=== PATIENT | male | born 1940 | race Caucasian/White ===

== ENCOUNTER 2022-03-14 09:12 | Outpatient (CLI) | payer OTHER, SELFPAY ==
[2022-03-14 12:29] LABS: Chloride* 105 mmol/L (96-114); Sodium* 139 mmol/L (135-149)
[2022-03-14 12:30] LABS: Potassium* 4.6 mmol/L (3.6-5.1)
[2022-03-14 12:32] LABS: Alanine Aminotransferase* 24 U/L (4-50); Aspartate Amino Transferase* 33 U/L (12-35); Blood Urea Nitrogen* 40 mg/dL (7-30); Carbon Dioxide* 26 mmol/L (20-32); Cholesterol* 158 mg/dL (90-199); Creatinine* 2.1 mg/dL (0.5-1.5); Estimated Glomerular Filt Rate 31 ml/min; Glucose* 96 mg/dL (60-115); Uric Acid* 8.2 mg/dL (2.2-8.4)
[2022-03-14 12:33] LABS: HDL Cholesterol* 45 mg/dL (>=40); LDL Cholesterol Calculated 91 mg/dL (<100); Phosphorus* 3.9 mg/dL (2.5-4.5); Triglycerides* 110 mg/dL (40-149)
[2022-03-14 12:41] LABS: Creatinine Urine 91.9 mg/dL
[2022-03-14 12:56] LABS: Microalbumin Creatinine Ratio 10 mg/g (0-30); Microalbumin Urine 1 mg/dL
== END 2022-03-14 09:13 | disposition home or self-care (01) ==
PROVIDERS: PCP Family Medicine; Visit Provider Internal Medicine Nephrology
DX: I10 Essential (primary) hypertension (principal); N18.9 Chronic kidney disease, unspecified
CPT/HCPCS: 80061; 80069; 82043; 82570; 84450; 84460; 84550; 87086

== ENCOUNTER 2022-09-15 09:42 | Outpatient (CLI) | payer OTHER, SELFPAY ==
[2022-09-15 14:29] LABS: Albumin* 4.3 g/dL (3.3-5.0)
[2022-09-15 14:30] LABS: Chloride* 106 mmol/L (96-114); Potassium* 4.5 mmol/L (3.6-5.1); Sodium* 142 mmol/L (135-149)
[2022-09-15 14:32] LABS: Aspartate Amino Transferase* 32 U/L (12-35); Bilirubin Total* 1.3 mg/dL (0.1-1.5); Carbon Dioxide* 28 mmol/L (20-32); Estimated Glomerular Filt Rate 33 ml/min; Total Protein* 7.2 g/dL (6.0-8.3)
[2022-09-15 14:33] LABS: Alanine Aminotransferase* 26 U/L (4-50); Alkaline Phosphatase* 71 U/L (40-150); Blood Urea Nitrogen* 41 mg/dL (7-30); Calcium* 9.1 mg/dL (8.4-10.6); Glucose* 93 mg/dL (60-115)
== END 2022-09-15 09:43 | disposition home or self-care (01) ==
LOC: NFLDREF 09:46
PROVIDERS: PCP Family Medicine; Visit Provider Family Medicine
DX: Z01.818 Encounter for other preprocedural examination (principal)
CPT/HCPCS: 80053

== ENCOUNTER 2022-09-26 06:03 | Day surgery (SDC) | payer OTHER, SELFPAY ==
[2022-09-26] VITALS (14 sets, daily range): BP systolic 97–184; BP diastolic 59–112; PULSE 60–68; RESP 16; TEMP 36.1–36.2; O2SAT 95–97; BMI 25.2
[2022-09-26] MEDS: LACTATED RINGERS 1000 ML 1,000 ML 100 ML IV (06:40)
[2022-09-26] MEDS: SODIUM CHLORIDE 0.9 % (FLUSH) 10 ML SYRINGE IVF (06:40)
--- NOTE | 2022-09-26 07:25 | SUR.PREOP ---
POC INR TAKEN AT 0720 WITH RESULT OF 1.2 ON 09/26/22
[2022-09-26] MEDS: CEFAZOLIN 1 GM inj IVP (07:35)
[2022-09-26] MEDS: BUPIVACAINE 0.5% 30 ML INJECTION (07:54)
--- NOTE | 2022-09-26 09:04 | P.GSOP_ITS ---
Operative Note Date of procedure: 09/26/22 Pre-op diagnosis: Recurrent right inguinal hernia Post-op diagnosis: Same Type of Procedure: Open repair recurrent right inguinal hernia Indications: The patient is an 81-year-old male who noted a groin bulge with discomfort. He has a history of a right inguinal hernia repair in 2000. He was found to have a hernia on exam and after discussion of options elected to proceed with repair. Because of prior comorbidities, an open repair was felt to be the safest option. Procedure Description: After discussing the risks and benefits of the procedure, the patient signed informed consent.? The operative site was marked and the patient was brought to the operating room and placed on the operating table in supine position.? Care was taken to pad the patient's pressure points.?? The patient was then given a spinal anesthetic by anesthesia.?? The operative site was then prepped and draped in the usual sterile fashion.? A time-out was then performed. The patient was then given sedation medication by anesthesia. Local anesthetic was injected into the skin and subcutaneous tissue overlying the inguinal canal. An oblique incision was made over the area of external ring. Dissection was carried down into the subcutaneous tissue using cautery until the external oblique fascia was encountered. This was cleared off. The external ring was identified and after injection of more local anesthetic, the external oblique was incised using a knife. This was extended using the Metzenbaum scissors with care to dissect the underlying cord structures away from the fascia before cutting. The ileal inguinal nerve was noted and care was taken to avoid dissection or injury of this. The cord was cleared from the inside of the inguinal canal. Here I noted some scarring from the patient's prior hernia repair. I could palpate the mesh fixated at the pubic tubercle. A small amount of dissection was necessary using cautery, however once this was done, I was able to get around the cord structures and looped them with a [place] drain. The mesh was noted to be intact on the inguinal floor. An indirect inguinal hernia was identified. The hernia sac was dissected off of the cord structures. The sac was then opened and examined and found to not be containing any intra- abdominal structures. This was the ligated and the proximal end reduced into the abdomen. A piece of polypropylene mesh was obtained and cut to size. This was placed in the inguinal canal on top of the previously placed, well incorporated mesh. Of note the old mesh was really only visible in the area of the pubic tubercle. The mesh was secured to the pubic tubercle using 2-0 Prolene on a double-armed suture. The Prolene was run along the inguinal ligament inferiorly and along the transversalis fascia superiorly, securing the tails around the cord and re-creating the internal ring. The ring was just large enough to permit my fingertip. The wound was examined for hemostasis which was found to be excellent. The ileoinguinal nerve was re-evaluated and noted to be away from the area of the repair. The external oblique fascia was then reapproximated with absorbable suture. The wound was then closed in layers including Sheela's fascia and the dermis with absorbable suture. The skin was then closed with a running subcuticular suture. Glue was applied. Instrument, sponge, and needle counts were correct at the end of the case. The patient's scrotum was examined and found to contain both testicles. The patient was woken and taken to the PACU in stable condition. ? The patient tolerated the procedure well. Findings: Indirect recurrent right inguinal hernia. Anesthesia: spinal Surgeon: Le Watson MD Estimated blood loss (mL): 5 Condition: stable Disposition: PACU
--- NOTE | 2022-09-26 09:21 | W.ANESCHARGE ---
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
--- NOTE | 2022-09-26 09:53 | W.ANESCHARGE ---
Anesthesia Charges Start Date/Time Anesthesia Start Date: 09/26/22 Anesthesia Start Time: 07:30 Stop Date/Time Anesthesia Stop Date: 09/26/22 Anesthesia Stop Time: 08:58 Summary Extremes of Age - Over 70 or under 1: MDA
[2022-09-26] MEDS: HYDROCODONE-ACETAMIN 5-325 MG 1 TAB PO (10:53)
== END 2022-09-26 11:40 | disposition home or self-care (01) ==
LOC: OR 06:04 → MEDSURG 06:11
PROVIDERS: PCP Family Medicine; Visit Provider Surgery
PROC: (CPT 49520; principal; 2022-09-26 07:30)
DX: K40.91 Unilateral inguinal hernia, without obstruction or gangrene, recurrent (principal)
CPT/HCPCS: 49520; 00800; 00830; 51798; 99100; A9270; C1781; J0690; J2400; J2704; J3010; J3490; J7120

== ENCOUNTER 2022-10-03 08:09 | Outpatient (CLI) | payer OTHER, SELFPAY ==
[2022-10-03 09:27] LABS: Albumin* 3.9 g/dL (3.3-5.0); Chloride* 106 mmol/L (96-114); Potassium* 4.8 mmol/L (3.6-5.1); Sodium* 141 mmol/L (135-149)
[2022-10-03 09:29] LABS: Aspartate Amino Transferase* 30 U/L (12-35); Carbon Dioxide* 28 mmol/L (20-32); Cholesterol* 145 mg/dL (90-199); Estimated Glomerular Filt Rate 33 ml/min
[2022-10-03 09:30] LABS: Alanine Aminotransferase* 23 U/L (4-50); Blood Urea Nitrogen* 38 mg/dL (7-30); Calcium* 9.1 mg/dL (8.4-10.6); Glucose* 95 mg/dL (60-115); HDL Cholesterol* 46 mg/dL (>=40); Iron* 73 ug/dL (49-181); LDL Cholesterol Calculated 78 mg/dL (<100); Phosphorus* 4.2 mg/dL (2.5-4.5); Triglycerides* 105 mg/dL (40-149); Uric Acid* 6.9 mg/dL (2.2-8.4)
[2022-10-03 09:39] LABS: Percent Iron Saturation 25 % (20-50); Total Iron Binding Capacity 294 ug/dL (261-462)
[2022-10-03 09:47] LABS: Creatinine Urine 92.7 mg/dL
[2022-10-03 09:51] LABS: Microalbumin Creatinine Ratio 20 mg/g (0-30); Microalbumin Urine 2 mg/dL
== END 2022-10-03 08:10 | disposition home or self-care (01) ==
LOC: NFLDREF 08:09
PROVIDERS: PCP Family Medicine; Visit Provider Internal Medicine Nephrology
DX: D53.9 Nutritional anemia, unspecified (principal); N18.4 Chronic kidney disease, stage 4 (severe); R53.83 Other fatigue
CPT/HCPCS: 80061; 80069; 82043; 82570; 82728; 83540; 83550; 84450; 84460; 84550

== ENCOUNTER 2023-02-11 17:50 | Emergency (ER) | payer OTHER, SELFPAY ==
[2023-02-11 17:57] VITALS: BP 165/101; PULSE 70; RESP 18; TEMP 35.9; O2SAT 96; BMI 24.7
--- NOTE | 2023-02-11 18:27 | ED.GENADULT ---
HPI - General Adult General Date Seen: 02/11/23 Chief complaint: Laceration/Wound Stated complaint: lac on palm of right hand, on blood thinners Time Seen by Provider: 02/11/23 18:02 Source: patient Mode of arrival: ambulatory Limitations: no limitations History of Present Illness HPI narrative: Patient is an 82-year-old who takes Coumadin for atrial fibrillation. He was working in his garden and sustained a puncture types scrape with the stick that he was using to prerna his zucchini. This was about 8 hours ago, and he has not been able to get the bleeding stopped. No other injuries or complaints. Last INR was checked 619 and was 3.0. Related Data Home Medications Medication Instructions Recorded Confirmed amoxicillin 500 mg capsule 2,000 mg PO ONCE 02/15/22 10/10/22 aspirin 81 mg tablet,delayed 81 mg PO QDAY 02/15/22 10/10/22 release (Enteric Coated Aspirin) atorvastatin 10 mg tablet 10 mg PO QPM 02/15/22 10/10/22 furosemide 20 mg tablet 20 mg PO QDAY 02/15/22 10/10/22 isosorbide mononitrate 30 mg 30 mg PO QPM 02/15/22 10/10/22 tablet,extended release 24 hr melatonin 3 mg capsule 3 mg PO QDAY 02/15/22 10/10/22 multivitamin 1 tab PO QDAY 02/15/22 10/10/22 omeprazole 20 mg capsule,delayed 20 mg PO QDAY 02/15/22 10/10/22 release potassium chloride 20 mEq 20 meq PO QDAY 02/15/22 10/10/22 tablet,extended release calcium citrate 315 mg 1 tab PO QDAY 09/05/22 10/10/22 calcium-vitamin D3 6.25 mcg (250 unit) tablet hydralazine 25 mg tablet 25 mg PO TID PRN 09/15/22 10/10/22 levothyroxine 175 mcg capsule 175 mcg PO QDAY 09/15/22 10/10/22 carvedilol 25 mg tablet 25 mg PO BID 10/10/22 10/10/22 Previous Rx's Medication Instructions Recorded warfarin 1 mg tablet 1 - 4 mg PO QDAY #300 tabs 01/23/23 Allergies Allergy/AdvReac Type Severity Reaction Status Date / Time lorazepam Allergy Intermediate Confusion Verified 10/19/22 08:56 trazodone Allergy Mild Agitated Verified 10/19/22 08:56 methimazole Allergy Verified 10/19/22 08:56 contrast dye Allergy Uncoded 10/19/22 08:56 [facility] Medical History (Updated 02/11/23 @ 18:26 by Elaine Astorga MD) Atrial fibrillation ?I48.91 - Unspecified atrial fibrillation (ICD-10) CKD (chronic kidney disease) stage 4, GFR 15-29 ml/min ?N18.4 - Chronic kidney disease, stage 4 (severe) (ICD-10) History of intestinal obstruction ?Z87.19 - Personal history of other diseases of the digestive system (ICD-10) History of sepsis ?Z86.19 - Personal history of other infectious and parasitic diseases (ICD-10) 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 - Other ehrlichiosis (ICD-10) Papillary thyroid carcinoma ?C73 - Malignant neoplasm of thyroid gland (ICD-10) Macrocytic anemia ?D53.9 - Nutritional anemia, unspecified (ICD-10) Insomnia ?G47.00 - Insomnia, unspecified (ICD-10) Hypothyroidism ?E03.9 - Hypothyroidism, unspecified (ICD-10) Hypertension ?I10 - Essential (primary) hypertension (ICD-10) Hyperlipidemia ?E78.5 - Hyperlipidemia, unspecified (ICD-10) HFrEF (heart failure with reduced ejection fraction) ?I50.20 - Unspecified systolic (congestive) heart failure (ICD-10) ESRD on hemodialysis ?N18.6 - End stage renal disease (ICD-10) ?Z99.2 - Dependence on renal dialysis (ICD-10) Endocarditis ?I38 - Endocarditis, valve unspecified (ICD-10) Depression ?F32.A - Depression, unspecified (ICD-10) Debility ?R53.81 - Other malaise (ICD-10) Cardiac left ventricular ejection fraction 30-35 percent ?R94.30 - Abnormal result of cardiovascular function study, unspecified (ICD-10) Aortic stenosis ?I35.0 - Nonrheumatic aortic (valve) stenosis (ICD-10) Anxiety ?F41.9 - Anxiety disorder, unspecified (ICD-10) Anticoagulation goal of INR 2 to 3 ?Z51.81 - Encounter for therapeutic drug level monitoring (ICD-10) ?Z79.01 - custodial (current) use of anticoagulants (ICD-10) Abdominal aortic aneurysm (AAA) ?I71.4 - Abdominal aortic aneurysm, without rupture (ICD-10) Surgical History (Updated 10/19/22 @ 09:09 by Torrie Ayoub MD) S/P right inguinal hernia repair ?Z98.890 - Other specified postprocedural states (ICD-10) ?Z87.19 - Personal history of other diseases of the digestive system (ICD-10) S/P gastrostomy ?Z93.1 - Gastrostomy status (ICD-10) S/P placement of cardiac pacemaker ?Z95.0 - Presence of cardiac pacemaker (ICD-10) H/O aortic valve replacement ?Z95.2 - Presence of prosthetic heart valve (ICD-10) H/O resection of small bowel ?Z90.49 - Acquired absence of other specified parts of digestive tract (ICD-10) H/O inguinal hernia repair ?Z98.890 - Other specified postprocedural states (ICD-10) ?Z87.19 - Personal history of other diseases of the digestive system (ICD-10) S/P thyroidectomy ?E89.0 - Postprocedural hypothyroidism (ICD-10) History of cholecystectomy ?Z90.49 - Acquired absence of other specified parts of digestive tract (ICD-10) History of colonoscopy ?Z98.890 - Other specified postprocedural states (ICD-10) Social History (Updated 09/05/22 @ 15:59 by Le Watson MD) Narrative: 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 He lives with his in [place]. He does not smoke. He drinks a few beers per day. Smoking Status: Former smoker How often do you have a drink containing alcohol: 4 or more times a week Alcohol type: beer How many standard drinks containing alcohol do you have on a typical day: 1 or 2 How often do you have six or more drinks on one occasion: Never AUDIT-C Alcohol total score: 4 Non-prescribed substance use: denies use Caffeine: Yes service: No Exam Narrative: Exam Narrative: Vital signs as noted above. In general, an alert, well-appearing patient. Examination of the right hand shows a v-shaped flap laceration at the webspace between the thumb and 2nd finger. There is venous oozing noted. The distal CMS is normal. Skin: Warm dry otherwise intact. Const: Vital Signs, click to edit/add: Vital Signs - 24 hr 02/11/23 17:57 Temperature 96.6 F L Pulse Rate [Right Pulse Oximeter] 70 Respiratory Rate 18 Blood Pressure [Ri ght Upper Arm] 165/101 H Pulse Oximetry 96 Oxygen Delivery Me thod Room Air Documenting provider has reviewed patient's vital signs: yes Course Course Hospital Course: Procedure note: Area was anesthetized using lidocaine, lidocaine with epinephrine was not available. The wound was cleaned, it is very superficial but shows venous oozing. I closed it using 4 simple interrupted sutures with 5 0 nylon. Bleeding is improved although it is still continuing to ooze a little bit and we will dress with [place]. Recommended that he keep this dressing on for the next couple of days and then can remove. Suture removal in about 10 days. Return for signs of infection. Vital Signs Vital signs: Initial Vital Signs Temperature 96.6 F L 02/11/23 17:57 Temperature Source Temporal Artery Scan 02/11/23 17:57 Pulse Rate 70 02/11/23 17:57 Respiratory Rate 18 02/11/23 17:57 Blood Pressure 165/101 H 02/11/23 17:57 Blood Pressure Mean 122 H 02/11/23 17:57 Blood Pressure Position Sitting 02/11/23 17:57 Pulse Oximetry 96 02/11/23 17:57 Oxygen Delivery Method Room Air 02/11/23 17:57 Vital Signs Temperature 96.6 F L 02/11/23 17:57 Pulse Rate 70 02/11/23 17:57 Respiratory Rate 18 02/11/23 17:57 Blood Pressure 165/101 H 02/11/23 17:57 Pulse Oximetry 96 02/11/23 17:57 Oxygen Delivery Method Room Air 02/11/23 17:57 Temperature 96.6 F L 02/11/23 17:57 Pulse Rate 70 02/11/23 17:57 Respiratory Rate 18 02/11/23 17:57 Blood Pressure 165/101 H 02/11/23 17:57 Pulse Oximetry 96 02/11/23 17:57 Oxygen Delivery Method Room Air 02/11/23 17:57 Discharge Plan Discharge Clinical Impression: Anticoagulated, Hand laceration Patient Disposition: Home, Self-Care Condition: Improved Instructions: Laceration (ED) Additional Instructions: Leave today's dressing on for 1-2 days, you can then use a bandage over the top if you like, or just use an ointment such as Vaseline/Aquaphor ointment. Suture removal in about 10 days. Return for signs of infection. Activity Level: No Restrictions Discharge Diet: Regular Prescriptions: No Action carvedilol 25 mg tablet 25 mg PO BID Rx Instructions: must administer with a meal/food calcium citrate-vitamin D3 315 mg-6.25 mcg (250 unit) tablet 1 tab PO QDAY aspirin [Enteric Coated Aspirin] 81 mg tablet,delayed release (DR/EC) 81 mg PO QDAY atorvastatin 10 mg tablet 10 mg PO QPM furosemide 20 mg tablet 20 mg PO QDAY isosorbide mononitrate 30 mg tablet extended release 24 hr 30 mg PO QPM omeprazole 20 mg capsule,delayed release(DR/EC) 20 mg PO QDAY potassium chloride 20 mEq tablet extended release 20 meq PO QDAY amoxicillin 500 mg capsule 2,000 mg PO ONCE melatonin 3 mg capsule 3 mg PO QDAY multivitamin Tablet 1 tab PO QDAY levothyroxine 175 mcg capsule 175 mcg PO QDAY Patient Comments: 1/2 tab on Monday. 1 tab x 6 days hydralazine 25 mg tablet 25 mg PO TID PRN warfarin 1 mg tablet 1 - 4 mg PO QDAY Qty: 300 0RF Protocol: Dose Management Condition: Monday Dose/Route: 3 mg Instruction: 3 x 1 mg tablets Condition: Monday Dose/Route: 4 mg Instruction: 4 x 1 mg tablets Condition: Monday Dose/Route: 3 mg Instruction: 3 x 1 mg tablets Condition: Monday Dose/Route: 4 mg Instruction: 4 x 1 mg tablets Condition: Dose/Route: 3 mg Instruction: 3 x 1 mg tablets Condition: Monday Dose/Route: 4 mg Instruction: 4 x 1 mg tablets Condition: Monday Dose/Route: 3 mg Instruction: 3 x 1 mg tablets Protocol Text: Adjustment Start Date: Monday01/31/23 INR Value: 3.0 INR Date: 01/30/23 Recheck Date: 03/02/23 Rx Instructions: 4mg Mon/Mon/Mon, 3mg rest of week Follow Up/Referrals: Victor Hugo Wright MD [Primary Care Provider] - Stand Alone Forms: [employer] Info Instructions
== END 2023-02-11 18:34 | disposition home or self-care (01) ==
LOC: ED 18:28
PROVIDERS: Emergency Provider Emergency Medicine; PCP Family Medicine
DX: S61.411A Laceration without foreign body of right hand, initial encounter (principal); W26.9XXA Contact with unspecified sharp object(s), initial encounter; Y92.017 Garden or yard in single-family (private) house as the place of occurrence of the external cause
CPT/HCPCS: 12001; 99283; 99284

== ENCOUNTER 2023-03-27 08:00 | Outpatient (CLI) | payer OTHER, SELFPAY | END 2023-03-27 08:01 | disposition home or self-care (01) | LOC: NFLDREF 10:40 | PROVIDERS: PCP Family Medicine; Referring Provider Family Medicine; Visit Provider Internal Medicine Nephrology | DX: E78.5 Hyperlipidemia, unspecified (principal); I10 Essential (primary) hypertension; N18.4 Chronic kidney disease, stage 4 (severe); R53.83 Other fatigue; Z79.01 Long term (current) use of anticoagulants; E03.9 Hypothyroidism, unspecified; I48.91 Unspecified atrial fibrillation; I50.20 Unspecified systolic (congestive) heart failure; K21.9 Gastro-esophageal reflux disease without esophagitis; E87.6 Hypokalemia | CPT/HCPCS: 80061; 80069; 82043; 82306; 82397; 82570; 84439; 84443; 84450; 84460; 84550; 85610 ==

== ENCOUNTER 2023-09-22 08:10 | Outpatient (CLI) | payer MEDICARE, SELFPAY ==
--- OUTSIDE RECORDS SUMMARY | 2023-09-25 08:59 | XMS_ITS | Encounter Summary ---
Author Name Unknown Organization [facility] Address [address] [place] [id number] Care Team Providers Care Dresser Tender Name Role Phone Elsewhere, Pcp Primary Care Provider Unavailabl e Encounter Details Date Type Department Care Team (Latest Contact Info) Description 09/22/2023 4:00 AM FILM PROCESSOR - 09/22/2023 11:59 PM FILM PROCESSOR Hospital Encounter Department of Cardiovascular Diseases in [place], [place] [address] [place] [address] Ernesto Xiao M.B., B.Ch., B.A.O. [address] [place] [address] Encounter For Checking And Testing Of Cardiac Pacemaker Pulse Generator Battery Discharge Disposition: Home or Self Care Social History Tobacco Use Types Packs/Day Years Used Date Smoking Tobacco: Former Cigarettes 0 01/12/1955 - 01/16/1985 Smokeless Tobacco: Never Alcohol Use Standard Drinks/Week Comments Yes 10 (1 standard drink = 0.6 oz pu re alcohol) occassional Humiliation, Afraid, Rape, and Kick questionnair e Answer Date Recorded Within the last year, have y ou been afraid of your partner or ex-partner? No 08/07/2022 Within the last year, have y ou been humiliated or emotionally abused in other ways by your partner or ex-partner? No Within the last year, have y ou been kicked, hit, slapped, or otherwise physically hurt by your partner or ex-partner? No 08/07/2022 Within the last year, have y ou been raped or forced to have any kind of sexual activity by your partner or ex-partner? No 08/07/2022 Social Connection and Isolat ion Panel [NHANES] Answer Date Recorded In a typical week, how many times do you talk on the phone with family, friends, or neighbors? Three times a week 08/07/2022 How often do you get togethe r with friends or relatives? More than three times a week 08/07/2022 How often do you attend chur or denominational services? 1 to 4 times per year 08/07/2022 Do you belong to any clubs o r organizations such as congregational groups, unions, fraternal or athletic groups, or school groups? Yes 08/07/2022 How often do you attend meet ings of the clubs or organizations you belong to? 1 to 4 times per year 08/07/2022 Are you , , di vorced, , never , or living with a partner? 08/07/2022 AUDIT-C Answer Date Recorded Q1: How often do you have a drink containing alcohol? 4 or more times a week 08/07/2022 Q2: How many drinks containi ng alcohol do you have on a typical day when you are drinking? 1 or 2 Q3: How often do you have si x or more drinks on one occasion? Never 08/07/2022 Overall Financial Resource Strain (CARDIA) Answe r Date Recorded How hard is it for you to pa y for the very basics like food, housing, medical care, and heating? Not hard at all 08/07/2022 PHQ-2 Answer Date Recorded PHQ-2 Score 5 01/25/2019 [facility] [place] [facility] - Occupational Stress Questionnaire Answer Date Recorded Do you feel stress - tense, restless, nervous, or anxious, or unable to sleep at night because your mind is troubled all the time - these days? Only a little 08/07/2022 Exercise Vital Sign Answer Date Recorde d On average, how many days pe r week do you engage in moderate to strenuous exercise (like a brisk walk)? 2 days 08/07/2022 On average, how many minutes do you engage in exercise at this level? 30 min 08/07/2022 Hunger Vital Sign Answer Date Recorded Within the past 12 months, y ou worried that your food would run out before you got the money to buy more. Never true 08/07/20 Within the past 12 months, t he food you bought just didn't last and you didn't have money to get more. Never true 08/07/2022 PRAPARE - Transportation Answer Date Re corded In the past 12 months, has l ack of transportation kept you from medical appointments or from getting medications? No 07/15 In the past 12 months, has l ack of transportation kept you from meetings, work, or from getting things needed for daily living? No 08/07/2022 Housing Stability Vital Sign Answer Ector e Recorded In the last 12 months, was t here a time when you were not able to pay the mortgage or rent on time? No 08/07/2022 In the last 12 months, how many places have you lived? 1 08/07/2022 In the last 12 months, was t here a time when you did not have a steady place to sleep or slept in a chcf (including now)? No 08/07/2022 Nutrition Answer Date Recorded Nutrition: EVOO Fat Source No 08/07 On average, how many serving s of fruits and vegetables do you eat per day (serving size is equal to 1 cup or approximately the size of a tennis ball)? 2-3 08/07/2022 Dental Answer Date Recorded Dental: Regular Dentist Yes 08/07/20 Employment Answer Date Recorded Employment status Retired 08/07/2022 Education Answer Date Recorded What is the highest level of school you have completed or the highest degree you have received? Associate degree: occupational, technical, or vocational program 05/04/2019 Sex and Gender Information Value Date Recorded Sex Assigned at Male 01/05/2018 4:12 PM CDT Gender Identity Male 01/05/2018 4:12 PM CDT Sexual Orientation Straight 01/05/2018 4: 12 PM CDT documented as of this encounter Medications at Time of Discharge Medication Sig Dispensed Refills Start Date End Date acetaminophen (TYLENOL) 500 mg tablet Take 500-1,000 mg by mouth every 6 (six) hours as needed for pain. 0 amoxicillin (AMOXIL) 500 mg capsule Take 4 caps (2000 mg) 1 hour prior to procedure. 12 capsule 11 11/19/[address] tablet Take 1 tablet by mouth daily. for heart failure. Refills per PCP 0 03/11/2017 atorvastatin (LIPITOR) 10 mg tablet TAKE ONE TABLET BY MOUTH DAILY FOR HIGH CHOLESTEROL 90 tablet 3 05/20/2019 calcium citrate-vitamin D3 (CITRACAL+D) 315-200 mg-unit per tablet Take 2 tablets by mouth daily with breakfast. 0 carvediloL (COREG) 25 mg tablet Take 1 tablet (25 mg total) by mouth 2 (two) times a day with meals. 180 tablet 3 10/10/2022 10/10/2023 furosemide (LASIX) 20 mg tablet Take 1 tablet by mouth daily. 0 09/22/2017 hydrALAZINE (APRESOLINE) 25 mg tablet TAKE 1 TABLET BY MOUTH THREE TIMES A DAY 270 tablet 3 08/25/2022 isosorbide mononitrate (IMDUR) 30 mg 24 hr tablet Take 1 tablet (30 mg total) by mouth at bedtime. 90 tablet 3 07/03/2018 Klor-Con M20 20 mEq ER tablet Take 20 mEq by mouth daily. 0 02/10/2020 levothyroxine (SYNTHROID, LEVOTHROID) 175 mcg tablet Take 1 tablet by mouth daily on Monday through Monday. Take 1/2 tablet by mouth daily on Sundays. 90 tablet 3 05/18/2023 melatonin 3 mg tablet Take 1 tablet by mouth at bedtime. 0 05/23/2017 multivitamin tablet Take 1 tablet by mouth daily. Centrum (per furnace and wash equipment operator) 0 10/09/2017 omeprazole (PriLOSEC) [address] capsuleIndications:Ga stroesophageal Reflux Disease TAKE ONE CAPSULE BY MOUTH ONE TIME DAILY FOR ACID REFLUX 100 capsule 3 05/21/2018 warfarin (COUMADIN) 1 mg tablet Take 4-5 tablets by mouth as directed. 4 tabs on Monday/Monday/Mon day 3 tabs all other days 0 10/09/2017 documented as of this encounter Plan of Treatment Upcoming Encounters Date Type Department Care Team (Late st Contact Info) Description 09/25/2023 3:00 PM FILM PROCESSOR External Outreach Division of Nephrology and Hypertension in [place], [place] [address] [place] [address] Eddie Sheffield Jr., D.O. [address] [place] [phone] Arrived 12/04/2023 10:30 AM CDT Clinical Communication Virtual Review in [place], [place] 200 [place] [address] 12/06/2023 7:40 AM CDT Lab Department of Laboratory Medicine and Pathology, [facility] in [place], [place] [address] [place] [phone] Jemal Murrell M.B.B.S., MYudy [address] [place] [phone] 12/06/2023 8:00 AM CDT Appointment Department of Radiology, [facility] in [place], [place] [address] [place] [phone] Jemal Murrell M.B.B.S., MYudy [address] [place] [phone] 12/06/2023 9:20 AM CDT Appointment Department of Radiology, [facility] in [place], [place] [address] [place] [phone] Jemal Murrell M.B.B.S., Alek [address] [place] [phone] 12/06/2023 10:00 AM CDT Appointment Department of Radiology, [facility], in [place], [place] [address] [place] [phone] Jemal Murrell M.B.B.S., Alek [address] [place] [phone] 12/06/2023 1:30 PM CDT Office Visit Division of Endocrinology in [place], [place] [address] [place] [phone] Zara Garvey APRN, C.N.P., D.N.P. [address] [place] [phone] Pending Results Name Type Priority Associated Diagnoses Date/Time Cardiac Device Interrogation Implantable Cardiac Device Routine Encounter For Checking And Testing Of Cardiac Pacemaker Pulse Generator Battery 09/22/2023 3:09 PM FILM PROCESSOR documented as of this encounter Procedures Procedure Name Priority Date/Time Associated Diagnosis Comments PACER REMOTE FOLLOW UP Routine 09/22/2023 3:09 PM FILM PROCESSOR Encounter For Checking And Testing Of Cardiac Pacemaker Pulse Generator Battery Procedure Note - 09/22/2023 3:09 PM CSTThis note is in progress. PURPOSE OF VISIT: Routine remote transmission. PRESENTING EGM: FAREBOX REPAIRER at 60 bpm with a PVC. VENTRICULAR ARRHYTHMIAS: No new events. BATTERY LONGEVITY: Expected battery longevity trends reviewed and arestable and consistent with device settings and use. SUMMARY: All device function appears normal. FOLLOW UP: Next routine follow-up will be in 3 months via CareLinktransmission. DEVICE RN: Medhat Ramirez RN Provider statement: This patient underwent device interrogation. I agreethat the device interrogation was medically indicated to provideappropriate care and continue routine device interrogations asindicated. documented in this encounter Visit Diagnoses Diagnosis Encounter For Checking And Testing Of Cardiac Pacemaker Pulse Generator Battery documented in this encounter Additional Health Concerns Assessment Noted Time PHQ-9 Depression Total Score: 5 03/06/20 18 6:00 PM CDT documented as of this encounter Care Teams Dresser Tender Relationship Specialty Start Date End Date Elsewhere, Pcp PCP - General Internal Medicine 09/13/22 documented as of this encounter
--- OUTSIDE RECORDS SUMMARY | 2023-09-25 08:59 | XMS_ITS ---
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 Hypocalcemia 04/20/2018 Anticoagulant Therapy 03/05/2018 Hypothyroidism Primary 03/05/2018 Chronic Systolic (Congestive) Heart Failure 02/12 Edema Pulmonary Acute 03/05/2018 Sepsis 03/05/2018 Hypertension And Chronic Kidney Disease Stage 4 09/20/2017 Bundle Branch Block Left 09/01/2017 Atrial Fibrillation Permanent 05/31/2017 Prolonged QT Interval 03/27/2017 Heart Failure NOS 02/23/2017 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 Past Plans Radiation Treatments * No radiation treatments are documented for this patient in [facility]. Treatments may have been administered in another system. Resolved Problems Problem Noted Date Diagnosed Date Resolved Date Thrombocytopenia 03/06/2018 05/08/2020 Leukopenia 03/06/2018 03/08/2018 Acute Respiratory Failure With Hypoxia 03/05/2018 05/08/2020 Palliative Care 07/12/2017 05/08/2020 Chronic Kidney Disease Stage 3 Glomerular Filtration Rate 30 To 59 07/12/2017 10/23/2019 Gastrostomy Percutaneous End oscopic Status Post 01/30/2017 05/08/2020 Chronic Kidney Disease Stage 5 Glomerular Filtration Rate Less Than 15 01/30/2017 10/23/2019 Malnourished 01/30/2017 05/08/2020
--- OUTSIDE RECORDS SUMMARY | 2023-09-25 08:59 | XMS_ITS | Encounter Summary ---
Author Name Unknown Organization [facility] Address [address] [place] [address] Care Team Providers Care Denture Waxer Name Role Phone Elsewhere, Pcp Primary Care Provider Unavailabl e Reason for Visit * Appointment Request (Routine) - Closed Specialty Diagnoses / Procedures Referred By Jessica patel Referred To Contact Nephrology and Hypertension Referral ID Status Reason Start Date Expiration Date Visits Re quested Visits Authorized [id number] Closed 08/25/2023 08/24/2024 1 1 Encounter Details Date Type Department Care Team (Late st Contact Info) Description 09/25/2023 3:00 PM ADULT MANAGER External Outreach Division of Nephrology and Hypertension in [place], [place] [address] [place] [phone] Eddie Sheffield Jr., D.O. [address] [place] [phone] Arrived Social History Tobacco Use Types Packs/Day Years [...] 08/07/2022 How often do you attend chur ch or adventism services? 1 to 4 times per year 08/07/2022 Do you belong to any clubs o r organizations such as advent groups, unions, fraternal or athletic groups, or [...] Answer Date Recorded PHQ-2 Score 5 01/25/2019 [facility]ational [facility] Questionnaire Answer Date [...] place to sleep or slept in a mcc (including now)? No 08/07/2022 Nutrition Answer Date [...] PM CDT documented as of this encounter Plan of Treatment Upcoming Encounters Date Type Department Care Team (Late st Contact Info) Description 12/04/2023 10:30 AM CDT Clinical Communication Virtual Review in [place], [place] 200 [place] [address] 12/06/2023 7:40 AM CDT Lab Department of Laboratory Medicine and Pathology, [facility] in [place], [place] [address] [place] [phone] Jemal Murrell M.B.B.S., Alek [address] [place] [phone] 12/06/2023 8:00 AM CDT Appointment Department of Radiology, [facility] in [place], [place] [address] [place] [phone] Jemal Murrell M.B.B.S., Alek [address] [place] [phone] 12/06/2023 9:20 AM CDT Appointment Department of Radiology, [facility] in [place], [place] [address] [place] [phone] Jemal Murrell M.B.B.S., Alek [address] [place] [phone] 12/06/2023 10:00 AM CDT Appointment Department of Radiology, [facility] in [place], [place] [address] [place] [phone] Jemal Murrell M.B.B.S., Alek [address] [place] [phone] 12/06/2023 1:30 PM CDT Office Visit Division of Endocrinology in [address] [phone] Zara Garvey APRN, C.N.P., D.N.P. [address] [place] [phone] documented as of this encounter Visit Diagnoses Not on filedocumented in this encounter Additional Health Concerns Assessment Noted Time PHQ-9 Depression Total Score: 5 03/06/20 18 6:00 PM CDT documented as of this encounter Care Teams Denture Waxer Relationship Specialty Start Date End Date Elsewhere, Pcp PCP - General Internal Medicine 09/13/22 documented as of this encounter
--- OUTSIDE RECORDS SUMMARY | 2023-09-25 08:59 | XMS_ITS ---
Author Name Unknown Organization [facility] Address [address] [place] [address] Care Team Providers Care Director Of Special Services Name Role Phone Unavailable Unavailable Unavailable Surgery Details Not on file Complications Check Surgery Details section. Procedure Estimated Blood Loss Check Surgery Details section. Procedure Findings Check Surgery Details section. Procedure Specimens Taken Check Surgery Details section.
--- OUTSIDE RECORDS SUMMARY | 2023-09-25 08:59 | XMS_ITS | Referral Summary ---
Author Name Unknown Organization [facility] Address [address] [place] [address] Care Team Providers Care Chicle Grinder Feeder Name Role Phone Elsewhere, Pcp Primary Care Provider Unavailabl e Source Comments Patient records contain information from all sites at [facility]. For routine questions regarding patient records, call [phone] during business hours, M-F 8:00 AM - 5:00 PM Central Time. Record requests for emergency care only can be directed to [phone] at any time.[facility] Encounters Date Type Department Care Team Description 09/25/2023 3:00 PM PATIENT SERVICES SPECIALIST External Outreach Division of Nephrology and Hypertension in [place], [place] [address] [place] [address] Eddie Sheffield Jr., D.O. Arrived 09/22/2023 4:00 AM PATIENT SERVICES SPECIALIST - 09/22/2023 11:59 PM PATIENT SERVICES SPECIALIST Hospital Encounter Department of Cardiovascular Diseases in [place], [place] [address] [place] [address] Ernesto Xiao M.B., B.Ch., B.A.O. Encounter For Checking And Testing Of Cardiac Pacemaker Pulse Generator Battery Discharge Disposition: Home or Self Care from Last 3 Months Allergies Active Allergy Reactions Criticality Noted Date Comments Iodinated Contrast Media Other (see comments) High 10/05/2017 Renal Failure, Unknown type of dye Lorazepam Other (see comments) 10/05/2017 Methimazole Other (see comments) 02/09/2017 Trazodone Anxiety 06/01/2017 per family/ patient, on previous hospita Medications Medication Sig Dispensed Refills Start Date End Date Status aspirin [address] tablet Take 1 tablet by mouth daily. for heart failure. Refills per PCP 0 03/11/2017 Active warfarin (COUMADIN) 1 mg tablet Take 4-5 tablets by mouth as directed. 4 tabs on Monday/Monday/ Monday 3 tabs all other days 0 10/09/2017 Active furosemide (LASIX) 20 mg tablet Take 1 tablet by mouth daily. 0 09/22/2017 Active melatonin 3 mg tablet Take 1 tablet by mouth at bedtime. 0 05/23/2017 Active multivitamin tablet Take 1 tablet by mouth daily. Centrum (per press operator carbon products) 0 10/09/2017 Active acetaminophen (TYLENOL) 500 mg tablet Take 500-1,000 mg by mouth every 6 (six) hours as needed for pain. 0 Active omeprazole (PriLOSEC) [address] capsuleIndications :Gastroesophageal Reflux Disease TAKE ONE CAPSULE BY MOUTH ONE TIME DAILY FOR ACID REFLUX 100 capsule 3 05/21/2018 Active isosorbide mononitrate (IMDUR) 30 mg 24 hr tablet Take 1 tablet (30 mg total) by mouth at bedtime. 90 tablet 3 07/03/2018 Active calcium citrate-vitamin D3 (CITRACAL+D) 315-200 mg-unit per tablet Take 2 tablets by mouth daily with breakfast. 0 Active amoxicillin (AMOXIL) 500 mg capsule Take 4 caps (2000 mg) 1 hour prior to procedure. 12 capsule 11 11/19/2018 Active Additional Information Patient taking differently: 500 mg oral As needed, For Dental Procedures, Reported on 01/30/2023 atorvastatin (LIPITOR) 10 mg tablet TAKE ONE TABLET BY MOUTH DAILY FOR HIGH CHOLESTEROL 90 tablet 3 05/20/2019 Active Klor-Con M20 20 mEq ER tablet Take 20 mEq by mouth daily. 0 02/10/2020 Active hydrALAZINE (APRESOLINE) 25 mg tablet TAKE 1 TABLET BY MOUTH THREE TIMES A DAY 270 tablet 3 08/25/2022 Active carvediloL (COREG) 25 mg tablet Take 1 tablet (25 mg total) by mouth 2 (two) times a day with meals. 180 tablet 3 10/10/2022 10/10/2023 Active levothyroxine (SYNTHROID, LEVOTHROID) 175 mcg tablet Take 1 tablet by mouth daily on Monday through Monday. Take 1/2 tablet by mouth daily on Sundays. 90 tablet 3 05/18/2023 Active Active Problems Problem Noted Date Diagnosed Date [...] Papillary 02/10/20 17 Anemia Of Renal Failure Phone Banker nirmala Kidney Disease On Erythropoietin 01/30/2017 Flutter Atrial 01/30/2017 Resolved Problems Problem Noted Date Diagnosed Date Resolved Date Thrombocytopenia 03/06/2018 05/08/2020 Leukopenia 03/06/2018 03/08/2018 Acute Respiratory Failure With Hypoxia 03/05/2018 05/08/2020 Palliative Care 07/12/2017 05/08/2020 Chronic Kidney Disease Stage 3 Glomerular Filtration Rate 30 To 59 07/12/2017 10/23/2019 Gastrostomy Percutaneous End oscopic Status Post 01/30/2017 05/08/2020 Chronic Kidney Disease Stage 5 Glomerular Filtration Rate Less Than 15 01/30/2017 10/23/2019 Malnourished 01/30/2017 05/08/2020 Immunizations Name Administration Dates Next Due influenza high dose (65 years or older) (PF) ,05/16/2016 Social History Tobacco Use Types Packs/Day Years [...] often do you attend chur ch or hoahaoism services? 1 to 4 times per year 08/07/2022 Do you belong to any clubs o r organizations such as yarsanism groups, unions, fraternal or athletic groups, or [...] Answer Date Recorded PHQ-2 Score 5 01/25/2019 [facility] Occupat ional [facility] - Occupational Stress [...] place to sleep or slept in a halfway (including now)? No 08/07/2022 Nutrition Answer Date [...] Orientation Straight 01/05/2018 4: 12 PM CDT Last Filed Vital Signs Vital Sign Reading Time Taken Comments Blood Pressure 169/100 04/10/2023 10:00 AM CDT Pulse 60 04/10/2023 10:10 AM CDT Temperature 36.6 ??C (97.9 ??F) 04/10/2023 10:00 AM C DT Respiratory Rate 16 04/10/2023 6:41 AM CDT Oxygen Saturation 94% 04/10/2023 10:10 AM CDT Inhaled Oxygen Concentration - - Weight 69.2 kg (152 lb 8.9 oz) 04/10/2023 6:41 A M CDT Height 170 cm (5' 6.93) 04/10/2023 6:41 AM CDT Body Mass Index 23.94 04/10/2023 6:41 AM CDT Plan of Treatment Upcoming Encounters Date Type Department Care Team (Late st Contact Info) Description 09/25/2023 3:00 PM PATIENT SERVICES SPECIALIST External Outreach Division of Nephrology and Hypertension in [address] [phone] Eddie Sheffield Jr., D.O. [address] [place] [phone] Arrived 12/04/2023 10:30 AM CDT Clinical Communication Virtual Review in [place], [place] [address] [place] [address] 12/06/2023 7:40 AM CDT Lab Department of Laboratory Medicine and Pathology, [place], [place] [address] [place] [phone] Jemal Murrell M.B.B.S., MYudy [address] [place] [phone] 12/06/2023 8:00 AM CDT Appointment Department of Radiology, [facility], in [place], [place] [address] [place] [phone] Jemal Murrell M.B.B.S., MYudy [address] [place] [phone] 12/06/2023 9:20 AM CDT Appointment Department of Radiology, [facility], in [place], [place] [address] [place] [address] Jemal Murrell M.B.B.S., M.D. [address] [place] [phone] 12/06/2023 10:00 AM CDT Appointment Department of Radiology, [facility] in [place], [place] [address] [place] [address] Jemal Murrell M.B.B.S., M.D. [address] [place] [phone] 12/06/2023 1:30 PM CDT Office Visit Division of Endocrinology in [place], [place] [address] [place] [address] Zara Garvey APRN, C.N.P., D.N.P. [address] [place] [phone] Medical Devices Implanted Type Area Marketing Underwriter Device Identifier Shelf Expiration Date Model / Serial / Lot Lead [id number] Antichecking Iron Worker Attain Ability - Darling [id number] Implanted:Qty: 1 on 10/09/2017 Cardiac Lead Coronary Medtronic / [id number] / Description:Device Manufactu rer - [facility]. Body Location - Other. Coronary Sinus. Device Status Text - CARD [id number]. Conversions - Default Historical Implant Device Implanted:03/07 (Quantity not on file) Cardiac Valve Prosthesis Aorta Description:Device Status Te xt - CardValve. pig valve placed on 11-16-2016. Mesh Or Patch-08/14/2022 Implanted:08/14 (Quantity not on file) Mesh or Patch Stomach Description:Hernia Mesh 2 Dental Bridges Misc Other Mouth Description:Upper and Lower Dental Bridge. Pacer Preeti Xt Sr Mri - Darling [id number] Implanted:Qty: 1 on 10/09/2017 Pacemaker Other/Legacy - See Implant Description Medtronic / [id number] / Description:Device Manufactu rer - [employer] Body Location - Other. Left. Device Status Text - [id number]. Vascular Other-08/14/2016 Implanted:08/14 (Quantity not on file) Vascular Other Right: Arm Description:A/V fistula Procedures Procedure Name Priority Date/Time Associated Diagnosis Comments PACER REMOTE FOLLOW UP Routine 09/22/2023 3:09 PM PATIENT SERVICES SPECIALIST Encounter For Checking And Testing Of Cardiac Pacemaker Pulse Generator Battery Procedure Note - 09/22/2023 3:09 PM CSTThis note is in progress. PURPOSE OF VISIT: Routine remote transmission. PRESENTING EGM: PASSENGER BARGE MASTER at 60 bpm with a PVC. VENTRICULAR [...] care and continue routine device interrogations asindicated. PACER REMOTE FOLLOW UP Routine 06/28/2023 9:23 AM PATIENT SERVICES SPECIALIST Encounter For Checking And Testing Of Cardiac Pacemaker Pulse Generator Battery from Last 3 Months Results * PACER REMOTE FOLLOW UP (06/28/2023 9:23 AM PATIENT SERVICES SPECIALIST) Date Time Interrogation Session [id number] [facility] Implantable Pulse Generator Marketing Underwriter Medtronic [facility] Implantable Pulse Generator Model [id number] [place] XT SR MRI [facility] Implantable Pulse Generator Serial Number [id number] [facility] Type Interrogation Session Remote [facility] Clinic Name [facility] Implantable Pulse Generator Type Pacemaker [facility] Implantable Pulse Generator Implant Date [id number] [facility] Implantable Lead Marketing Underwriter Medtronic [facility] Implantable Lead Model 4196 Attain Ability MRI SureScan [facility] Implantable Lead Serial Number [id number] [facility] Implantable Lead Implant Date 20171009 [facility] Implantable Lead Polarity Type Bipolar Lead [facility] Implantable Lead Location Detail 1 UNKNOWN [facility] Implantable Lead Special Function Lead length: 88 cm [facility] Implantable Lead Location Left Ventricle [facility] [place] Setting Mode (NBG Code) VVIR [facility] [place] Setting Lower Rate Limit 60 {beats}/ min [facility] [place] Setting Maximum Sensor Rate 130 {beats}/ min [facility] Lead Channel Setting Sensing Polarity Bipolar [facility] Lead Channel Setting Sensing Anode Location Right Ventricle [facility] Lead Channel Setting Sensing Anode Terminal Ring [facility] Lead Channel Setting Sensing Cathode Location Right Ventricle [facility] Lead Channel Setting Sensing Cathode Terminal Tip [facility] Lead Channel Setting Sensing Sensitivity 0.9 mV [facility] Lead Channel Setting Pacing Polarity Bipolar [facility] Lead Channel Setting Pacing Anode Location Right Ventricle [facility] Lead Channel Setting Pacing Anode Terminal Ring [facility] Lead Channel Setting Sensing Cathode Location Right Ventricle [facility] Lead Channel Setting Sensing Cathode Terminal Tip [facility] Lead Channel Setting Pacing Pulse Width 0.4 ms [facility] Lead Channel Setting Pacing Amplitude 3 V [facility] Lead Channel Setting Pacing Capture Mode Adaptive [facility] Zone Setting Type Category VF [facility] Zone Setting Type Category [place] [facility] Zone Setting Type Category VT [facility] Zone Setting Type Category VT [facility] Zone Setting Detection Interval 360 ms [facility] Zone Setting Type Category ATRIAL_FIBRILLATI ON [facility] Zone Setting Type Category AT/AF [facility] Lead Channel Impedance Value 722 ohm [facility] Lead Channel Impedance Value 342 ohm [facility] Lead Channel Sensing Intrinsic Amplitude 18.75 mV [facility] Lead Channel Pacing Threshold Amplitude 1.25 V [facility] Lead Channel Pacing Threshold Pulse Width 0.4 ms [facility] Battery Date Time of Measurements [facility] Battery TIRE SHOP MANAGER Trigger 2.625 [facility] Battery Remaining Longevity 87 mo [facility] Battery Voltage 3.00 V [facility] Cholo Statistic Date Time Start [facility] Cholo Statistic Date Time End [facility] Cholo Statistic RV Percent Paced 99.51 % [facility] Episode Statistic Recent Count 0 [facility] Episode Statistic Type Category Patient Activated [facility] Episode Statistic Recent Count 1 [facility] Episode Statistic Type Category [place] [facility] Episode Statistic Recent Count 0 [facility] Episode Statistic Type Category VT [facility] Episode Statistic Recent Date Time Start [facility] Episode Statistic Recent Date Time End [facility] Episode Statistic Recent Date Time Start [facility] Episode Statistic Recent Date Time End F[facility] Episode Statistic Recent Date Time Start [id number] [facility] Episode Statistic Recent Date Time End F[facility] Episode Statistic Total Count 0 [facility] Episode Statistic Type Category Patient Activated F[facility] Episode Statistic Total Count 4 [facility] Episode Statistic Type Category VT [facility] Episode Statistic Total Count 0 [facility] Episode Statistic Type Category VT [facility] Episode Statistic Total Date Time Start [id number] [facility] Episode Statistic Total Date Time End F[facility] Episode Statistic Total Date Time Start [facility] Episode Statistic Total Date Time End F[facility] Episode Statistic Total Date Time Start [id number] [facility] Episode Statistic Total Date Time End [facility] Episode Identifier 4 [facility] Episode Type Category VT [facility] Episode Date Time [id number] [facility] Episode Duration 1 s [facility] Anatomical Region Laterality Modality Other 06/21/2023 10:5 8 PM PATIENT SERVICES SPECIALIST Narrative 06/29/2023 9:30 AM PATIENT SERVICES SPECIALIST PURPOSE OF VISIT: Routine remote transmission. PRESENTING EGM: ??PASSENGER BARGE MASTER at 60 bpm. ?? VENTRICULAR ARRHYTHMIAS: ??One event 05/05/23 @ 23:20, EGM shows 8 beats NSVT @ 176 bpm. BATTERY LONGEVITY: Expected battery longevity trends reviewed and are stable and consistent with device settings and use. SUMMARY: All device function appears normal. FOLLOW UP: Next routine follow-up will be in 3 months via [facility] transmission. DEVICE RN: Cody Burgos RN Provider statement: This patient underwent device interrogation. I agree that the device interrogation was medically indicated to provide appropriate care and continue routine device interrogations as indicated. Sidra Garcia CV IMPLANTABLE CA RDIAC DEVICE from Last 3 Months Advance Directives For more information, please contact: [phone] Documents on File Type Date Recorded Patient Avionics System Engineer Expl anation Advance Directives 2002 12:00 AM Leg acy document. See document viewer. Latest Code Status on File Code Status Date Activated Date Inactivated Comments Full Code 04/10/2023 9:41 AM 04/10/2023 12:37 PM Question Answer Comments Full Code: Discussed Code Status History Code Status Date Activated Date Inactivated Comments Full Code 04/10/2023 6:15 AM 04/10/2023 9:41 AM Question Answer Comments Full Code: Discussed Full Code 03/05/2018 8:45 AM 03/09/2018 8:38 PM Question Answer Comments Full Code: Discussed Care Teams Chicle Grinder Feeder Relationship Specialty Start Date End Date Elsewhere, Pcp PCP - General Internal Medicine 09/13/22
--- OUTSIDE RECORDS SUMMARY | 2023-09-25 08:59 | XMS_ITS | Clinical Summary ---
Author Name Unknown Organization [facility] Address [address] [place] [address] Care Team Providers Care Microsoft Dynamics Manager Architect Name Role Phone Elsewhere, Pcp Primary Care Provider Unavailabl e Source Comments Patient records contain information from all sites at [facility]. For routine questions regarding patient records, call [phone] during business hours, M-F 8:00 AM - 5:00 PM Central Time. Record requests for emergency care only can be directed to [phone] at any time.[facility] Allergies Active Allergy Reactions Criticality Noted Date [...] 1 tablet by mouth daily. 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 Arrived 09/22/2023 4:00 AM AUTOMOTIVE GLASS MECHANIC - 09/22/2023 11:59 PM AUTOMOTIVE GLASS MECHANIC Hospital Encounter Department of Cardiovascular Diseases in [place], [place] [address] [place] [address] Ernesto Xiao M.B., B.Ch., B.A.O. Encounter For Checking And Testing Of Cardiac Pacemaker Pulse Generator Battery Discharge Disposition: Home or Self Care from Last 3 Months Immunizations Name Administration Dates Next Due influenza high dose (65 years or older) (PF) ,05/16/2016 Family History Medical History Relation Name Comments Thyroid disease Daughter Ciara Fregoso Anxiety disorder Mother Josiane Keanrey Dementia Mother Josiane Kearney Osteoporosis Mother Josiane Kearney Suicide Attempts Sister Mandi Jackson Relation Name Status Comments Daughter Ciara Fregoso Mother Josiane Kearney Sister Mandi Jackson Social History Tobacco Use Types Packs/Day Years [...] week 08/07/2022 How often do you attend [facility] or church services? 1 to 4 times per year 08/07/2022 Do you belong to any clubs o r organizations such as hinduism groups, unions, fraternal or athletic groups, or [...] when you are drinking? 1 or 2 2 Q3: How often do you have si x or more drinks on one occasion? Never 08/07/2022 Overall Financial Resource Strain (CARDIA) Answe r Date Recorded How hard is it for you to pa y for the very basics like food, housing, medical care, and heating? Not hard at all 08/07/2022 PHQ-2 Answer Date Recorded PHQ-2 Score 5 01/25/2019 [facility] of Occupat ional Health - Occupational Stress [...] place to sleep or slept in a care home (including now)? No 08/07/2022 Nutrition Answer Date [...] st Contact Info) Description 09/25/2023 3:00 PM AUTOMOTIVE GLASS MECHANIC External Outreach Division of Nephrology and Hypertension in [place], [place] [address] [place] [phone] Eddie Sheffield Jr., D.O. [address] [place] [phone] Arrived 12/04/2023 10:30 AM CDT Clinical Communication Virtual Review in [place], [place] [address] [place] [address] 12/06/2023 7:40 AM CDT Lab Department of Laboratory Medicine and Pathology, [facility] in [place], [place] [address] [place] [phone] Jemal Murrell M.B.B.S., MYudy [address] [place] [phone] 12/06/2023 8:00 AM CDT Appointment Department of Radiology, [facility] in [place], [place] [address] [place] [phone] Jemal Murrell M.B.B.S., Alek [address] [place] [phone] 12/06/2023 9:20 AM CDT Appointment Department of Radiology, [facility] in [place], [place] [address] [place] [phone] Jemal Murrell M.B.B.S., M.D. [address] [place] [phone] 12/06/2023 10:00 AM CDT Appointment Department of Radiology, [facility] in [place], [place] [address] [place] [phone] Jemal Murrell M.B.B.S., Alek [address] [place] [phone] 12/06/2023 1:30 PM CDT Office Visit Division of Endocrinology in [place], [place] [address] [place] [phone] Zara Garvey APRN, C.N.P., D.N.P. [address] [place] [phone] Health Maintenance Due Date Last Done Comments COVID-19 Vaccine (2022-09 4 season) 2023 12/27/2021, 06/09/2021, 10/22/2020, Additional history exists Depression Screening (Annual PHQ-2) 08/14/2023 Fall Risk Screen (Annual) 08/14/2023 Thyroid Stimulating Hormone (TSH) test for thyroid function 02/02/2024 02/01/2023, 09/06/2022, 07/21/2021, Additional history exists Office Visit for Blood Press ure Check / Re-check 04/03/2024 04/03/2023 Creatinine Level (Kidney Fun ction Test) 05/02/2024 05/02/2023, 05/03/2022, 07/21/2021, Additional history exists Potassium Level 05/02/2024 05/02/2023, 04/15, 07/21/2021, Additional history exists Sodium Level 05/02/2024 05/02/2023, 04/15, 07/21/2021, Additional history exists DTaP,Tdap,and Td Vaccines (3 - Td or Tdap) 02/08/2032 02/07/2022, 06/20/2012 Pneumococcal vaccine (65+ years) Completed 09/16/19 15, 06/27/2008 Zoster Vaccines Completed 05/13/2019, 01/21/2019 Influenza Vaccine Completed 06/06/2023, , 05/14/2021, Additional history exists Medical Devices Implanted Type Area Maintenance Service Dispatcher Device Identifier Shelf Expiration Date Model / Serial / Lot Lead [id number] Process Stripper Attain Ability - Darling [id number] Implanted:Qty: 1 on 10/09/2017 Cardiac Lead Coronary Medtronic / [id number] / Description:Device Manufactu rer - Routezilla. Body Location - Other. Coronary Sinus. Device Status Text - CARD [id number]. Conversions - Default Historical Implant Device Implanted:03/07 (Quantity not on file) Cardiac Valve Prosthesis Aorta Description:Device Status Te xt - CardValve. pig valve placed on 11-16-2016. Mesh Or Patch-08/14/2022 Implanted:08/14 (Quantity not on file) Mesh or Patch Stomach Description:Hernia Mesh 2 Dental Bridges Misc Other Mouth Description:Upper and Lower Dental Bridge. Pacer Preeti Xt Sr Mri - Darling [id number] Implanted:Qty: 1 on 10/09/2017 Pacemaker Other/Legacy - See Implant Description Medtronic / [id number] / Description:Device Manufactu rer - Routezilla. Body Location - Other. Left. Device Status Text - [id number]. Vascular Other-08/14/2016 Implanted:08/14 (Quantity not on file) Vascular Other Right: Arm Description:A/V fistula Procedures Procedure Name Priority Date/Time Associated Diagnosis Comments PACER REMOTE FOLLOW UP Routine 09/22/2023 3:09 PM AUTOMOTIVE GLASS MECHANIC Encounter For Checking And Testing Of Cardiac Pacemaker Pulse Generator Battery Procedure Note - 09/22/2023 3:09 PM CSTThis note is in progress. PURPOSE OF VISIT: Routine remote transmission. PRESENTING EGM: ASSOCIATE PROFESSOR OF ANTHROPOLOGY at 60 bpm with a PVC. VENTRICULAR [...] REMOTE FOLLOW UP Routine 06/28/2023 9:23 AM AUTOMOTIVE GLASS MECHANIC Encounter For Checking And Testing Of Cardiac Pacemaker Pulse Generator Battery from Last 3 Months Results * PACER REMOTE FOLLOW UP (06/28/2023 9:23 AM AUTOMOTIVE GLASS MECHANIC) Date Time Interrogation Session [id number] [facility] Implantable Pulse Generator Maintenance Service Dispatcher Medtronic [facility] Implantable Pulse Generator Model [id number] [place] XT SR MRI [facility] Implantable Pulse Generator Serial Number [id number] [facility] Type Interrogation Session Remote [facility] Clinic Name [facility] Implantable Pulse Generator Type Pacemaker [facility] Implantable Pulse Generator Implant Date 20171009 [facility] Implantable Lead Maintenance Service Dispatcher Medtronic [facility] Implantable Lead Model [id number] Attain Ability MRI SureScan [facility] Implantable Lead Serial Number [id number] [facility] Implantable Lead Implant Date 20171009 [facility] Implantable Lead Polarity Type Bipolar Lead [facility] Implantable Lead Location Detail 1 UNKNOWN [facility] Implantable Lead Special Function Lead length: 88 cm [facility] Implantable Lead Location Left Ventricle [facility] [place]olo Setting Mode (NBG Code) VVIR [facility] [place]olo Setting Lower Rate Limit 60 {beats}/ min [facility] [place] Setting Maximum Sensor Rate 130 {beats}/ min [facility] Lead Channel Setting Sensing Polarity Bipolar [facility] Lead Channel Setting Sensing Anode Location Right Ventricle [facility] Lead Channel Setting Sensing Anode Terminal Ring [facility] Lead Channel Setting Sensing Cathode [...] Lead Channel Setting Pacing Capture Mode Adaptive [facility] Zone Setting Type Category VF [...] Time of Measurements [facility] Battery FIRER DIESEL LOCOMOTIVE Trigger 2.625 [facility] Battery Remaining Longevity 87 mo [...] SYSTEM Episode Statistic Total Date Time Start [id number] [facility] Episode Statistic Total Date Time End [id number] [facility] Episode Statistic Total Date Time Start [id number] [facility] Episode Statistic Total Date Time End [id number] [facility] Episode Statistic Total Date Time Start [id number] [facility] Episode Statistic Total Date Time End [id number] [facility] Episode Identifier 4 [facility] Episode Type Category VT [facility] Episode Date Time [id number] [facility] Episode Duration 1 s [facility] Anatomical Region Laterality Modality Other 06/21/2023 10:5 8 PM AUTOMOTIVE GLASS MECHANIC Narrative 06/29/2023 9:30 AM AUTOMOTIVE GLASS MECHANIC PURPOSE OF VISIT: Routine remote transmission. PRESENTING EGM: ??ASSOCIATE PROFESSOR OF ANTHROPOLOGY at 60 bpm. ?? VENTRICULAR ARRHYTHMIAS: ??One [...] Advance Directives For more information, please contact: [phone] Documents on File Type Date Recorded Patient Piano Builder Expl anation Advance Directives 2002 12:00 AM [...] Answer Comments Full Code: Discussed Care Teams Microsoft Dynamics Manager Architect Relationship Specialty Start Date End Date Elsewhere, Pcp PCP - General Internal Medicine 09/13/22
--- OUTSIDE RECORDS SUMMARY | 2023-09-25 09:00 | XMS_ITS | Encounter Summary ---
Author Name Unknown Organization [facility] Address [address] [place] [address] Care Team Providers Care Drive In Waiter/Waitress Name Role Phone Elsewhere, Pcp Primary Care Provider Unavailabl e Reason for Referral * Outpatient (Routine) - Authorized Specialty Diagnoses / Procedures Referred By Contac t Referred To Contact Diagnoses Prosthesis Aortic Valve Procedures US Aorta Devi Stafford APRN, C.NTato, M.S.N. [address] [place] [phone] [facility] Referral ID Status Reason Start Date Expiration Date V isits Requested Visits Authorized [id number] Authorized 05/02/2023 05/01/2024 1 1 * Outpatient (Routine) - Authorized Specialty Diagnoses / Procedures Referred By Contac t Referred To Contact Diagnoses Prosthesis Aortic Valve Procedures ECG 12 Lead Devi Stafford APRN, C.NTato, M.S.N. [address] [place] [phone] [facility] Referral ID Status Reason Start Date Expiration Date V isits Requested Visits Authorized [id number] Authorized 05/02/2023 05/01/2024 1 1 * Outpatient (Routine) - Authorized Specialty Diagnoses / Procedures Referred By Contac t Referred To Contact Diagnoses Prosthesis Aortic Valve Procedures Echo Transthoracic (TTE) - Complex Valvular Heart Disease Devi Stafford APRN, C.N.P., M.S.N. [address] [place] [phone] [facility] Referral ID Status Reason Start Date Expiration Date V isits Requested Visits Authorized [id number] Authorized 05/02/2023 05/01/2024 1 1 * Outpatient (Routine) - Authorized Specialty Diagnoses / Procedures Referred By Contac t Referred To Contact Diagnoses Prosthesis Aortic Valve Procedures DX Chest AP or PA and Lateral 2 Views Devi Stafford APRN, C.N.P., M.S.N. [address] [place] [phone] [facility] Referral ID Status Reason Start Date Expiration Date V isits Requested Visits Authorized [id number] Authorized 05/02/2023 05/01/2024 1 1 * Outpatient (Routine) - Authorized Specialty Diagnoses / Procedures Referred By Contac t Referred To Contact Cardiovascular Disease Devi Stafford APRN, C.N.P., M.S.N. [address] [place] [phone] [facility] Referral ID Status Reason Start Date Expiration Date V isits Requested Visits Authorized [id number] Authorized 05/02/2023 05/01/2026 1 1 Reason for Visit * Appointment Request (Routine) - Closed Specialty Diagnoses / Procedures Referred By Contac t Referred To Contact Cardiovascular Disease Referral ID Status Reason Start Date Expiration Date Visits Re quested Visits Authorized [id number] Closed 02/06/2023 02/06/2024 1 1 Encounter Details Date Type Department Care Team (Late st Contact Info) Description 05/02/2023 2:15 PM CDT Office Visit Department of Cardiovascular Medicine in [place], [place] [address] [place] [address] Devi Stafford, ROSAURA, C.N.P., M.S.N. [address] [place] [address] Prosthesis Aortic Valve (Primary Dx); Malignant Neoplasm Of Thyroid (HCC) Social History Tobacco Use Types Packs/Day Years [...] How often do you attend chur or restoration services? 1 to 4 times per year 08/07/2022 Do you belong to any clubs o r organizations such as mandaen groups, unions, fraternal or athletic groups, or [...] Answer Date Recorded PHQ-2 Score 5 01/25/2019 [facility] - Occupational Stress Questionnaire Answer Date Recorded [...] money to buy more. Never true 08/07/20 22 Within the past 12 months, t he [...] place to sleep or slept in a jail (including now)? No 08/07/2022 Nutrition Answer Date [...] PM CDT documented as of this encounter Progress Notes * Devi Stafford, ROSAURA, C.N.P., M.S.N. - 05/02/2023 2:15 PM CDT Cardiovascular Consult Note SUBJECTIVE Referring Provider: No ref. provider found CHIEF COMPLAINT/REASON FOR CONSULT No chief complaint on file. AVR HISTORY OF PRESENT ILLNESS Mr. Jose Kearney is a very pleasant 82 y.o. 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 He also has history of nonischemic cardiomyopathy and atrial fibrillation and flutter. He also has advanced renal dysfunction. I last saw Mr. Kearney 1 year ago. He tells me he has been feeling well from a heart standpoint. He has been active walking and climbing stairs. He denies any shortness of breath, chest pain, edema,lightheadedness, syncopal episodes, or palpitations. He still goes to the dentist every 6 months. 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 REVIEW OF SYSTEMS Pertinent items are noted in HPI; all other review of systems was negative. The following portions of the patient's history were reviewed and updated as appropriate: allergies, current medications, family history, medical history, social history, surgical history and problemlist. OBJECTIVE There were no vitals filed for this visit. BP Readings from Last 3 Encounters: 04/10/23 (!) 169/100 04/03/23 138/70 02/01/23 133/72 PHYSICAL EXAMINATION General: Alert, cooperative, no distress, appears stated age Neck: no JVD Lungs: Clear to auscultation bilaterally, respirations unlabored Heart: Regular rate and rhythm, S1 and S2 normal, 1/6 systolic murmur Extremities: Extremities normal, atraumatic, no cyanosis or edema Skin: Skin color, texture, turgor normal, no rashes or lesions Psychiatric: Normal mood and affect DIAGNOSTICS I have reviewed the patient's current laboratory, imaging, and other diagnostic studies. Pertinent laboratory studies have been reviewed and are notable for: Hospital Outpatient Visit on 05/02/2023 Component Date Value Ejection Fraction 05/02/2023 52 Mid-Ascending Aorta 05/02/2023 35 LV End-Diastolic Diameter 05/02/2023 44 LV End-Systolic Diameter 05/02/2023 32 LV End-Diastolic Volume 05/02/2023 171 LV End-Systolic Volume 05/02/2023 75 MV E Velocity 05/02/2023 0.9 Left ventricular stroke * 05/02/2023 33 Cardiac Output 05/02/2023 3.61 Cardiac Index 05/02/2023 2.01 Tricuspid Annular S??? 05/02/2023 0.05 RV Free Wall Strain 05/02/2023 -21 TR Vmax 05/02/2023 2.7 RA Pressure 05/02/2023 5 RV Systolic Pressure 05/02/2023 34 AV mean gradient 05/02/2023 14 Aortic valve area 05/02/2023 1.2 Aortic Valve Area Index 05/02/2023 0.67 Aortic Valve Dimensionle* 05/02/2023 0.29 LA Volume Index 05/02/2023 54 Aortic Valve Systolic Pe* 05/02/2023 2.6 Appointment on 05/02/2023 Component Date Value Ventricular Rate ECG/Min 05/02/2023 79 QRSD Interval 05/02/2023 196 QT Interval 05/02/2023 448 QTC Interval 05/02/2023 514 R [place] 05/02/2023 112 T Wave [place] 05/02/2023 -51 Hospital Outpatient Visit on 05/02/2023 Component Date Value Albumin, S 05/02/2023 4.3 Creatinine 05/02/2023 2.09 (H) Estimated GFR (eGFR) 05/02/2023 31 (L) Glucose, P 05/02/2023 102 (H) Last Intake 05/02/2023 15 Potassium, S 05/02/2023 4.7 Sodium, S 05/02/2023 142 Prothrombin Time, P 05/02/2023 26.4 (H) INR 05/02/2023 2.4 Hemoglobin 05/02/2023 15.1 Hematocrit 05/02/2023 44.4 Erythrocytes 05/02/2023 4.65 MCV 05/02/2023 95.5 RBC Distrib Width 05/02/2023 12.3 Platelet Count 05/02/2023 225 Leukocytes 05/02/2023 6.1 Neutrophils 05/02/2023 4.34 Lymphocytes 05/02/2023 0.76 (L) Monocytes 05/02/2023 0.62 Eosinophils 05/02/2023 0.33 Basophils 05/02/2023 0.06 Triglycerides 05/02/2023 86 Cholesterol, Total 05/02/2023 163 Cholesterol, LDL, Calcul* 05/02/2023 98 Cholesterol, HDL, S 05/02/2023 49 Cholesterol, Non-HDL, Ca* 05/02/2023 114 Fasting (8 HR or more) 05/02/2023 Yes NT-Pro BNP 05/02/2023 1913 (H) Admission on 04/10/2023, Discharged on 04/10/2023 Component Date Value Date Time Interrogation * 04/10/2023 [id number] Implantable Pulse Genera* 04/10/2023 Medtronic Implantable Pulse Genera* 04/10/2023 [id number] Preeti XT SR MRI Implantable Pulse Genera* 04/10/2023 [id number] Type Interrogation Sessi* 04/10/2023 In Clinic Clinic Name 04/10/2023 [facility] Implantable Pulse Genera* 04/10/2023 Pacemaker Implantable Pulse Genera* 04/10/202320171009 Implantable Lead Manufac* 04/10/2023 Medtronic Implantable Lead Model 04/10/2023 4196 Attain Ability MRI SureScan Implantable Lead Serial * 04/10/2023 [id number] Implantable Lead Implant* 04/10/202320171009 Implantable Lead Polarit* 04/10/2023 Bipolar Lead Implantable Lead Locatio* 04/10/2023 UNKNOWN Implantable Lead Special* 04/10/2023 Lead length: 88 cm Implantable Lead Location 04/10/2023 Left Ventricle Cholo Setting Mode (NBG * 04/10/2023 VVIR Cholo Setting Lower Rate* 04/10/2023 60 Cholo Setting Maximum Se* 04/10/2023 130 Lead Channel Setting Sen* 04/10/2023 Bipolar Lead Channel Setting Sen* 04/10/2023 Right Ventricle Lead Channel Setting Sen* 04/10/2023 Ring Lead Channel Setting Sen* 04/10/2023 Right Ventricle Lead Channel Setting Sen* 04/10/2023 Tip Lead Channel Setting Sen* 04/10/2023 0.9 Lead Channel Setting Sen* 04/10/2023 Adaptive Lead Channel Setting Pac* 04/10/2023 Bipolar Lead Channel Setting Pac* 04/10/2023 Right Ventricle Lead Channel Setting Pac* 04/10/2023 Ring Lead Channel Setting Sen* 04/10/2023 Right Ventricle Lead Channel Setting Sen* 04/10/2023 Tip Lead Channel Setting Pac* 04/10/2023 0.4 Lead Channel Setting Pac* 04/10/2023 2.5 Lead Channel Setting Pac* 04/10/2023 Adaptive Zone Setting Type Catego* 04/10/2023 VF Zone Setting Type Catego* 04/10/2023 VT Zone Setting Type Catego* 04/10/2023 VT Zone Setting Type Catego* 04/10/2023 VT Zone Setting Detection I* 04/10/2023 360 Zone Setting Type Catego* 04/10/2023 ATRIAL_FIBRILLATION Zone Setting Type Catego* 04/10/2023 AT/AF Lead Channel Impedance V* 04/10/2023 703 Lead Channel Impedance V* 04/10/2023 361 Lead Channel Sensing Int* 04/10/2023 16.4 Lead Channel Pacing Thre* 04/10/2023 1.25 Lead Channel Pacing Thre* 04/10/2023 0.4 Battery Date Time of Taylor* 04/10/2023 91751619715839 Battery DIGITAL MANAGER Trigger 04/10/2023 2.625 Battery Remaining Longev* 04/10/2023 99 Battery Voltage 04/10/2023 3.00 Cholo Statistic Date Jay* 04/10/2023 07930202657914 Cholo Statistic Date Jay* 04/10/2023 07871370309427 Cholo Statistic RV Perce* 04/10/2023 90.99 Episode Statistic Recent* 04/10/2023 3 Episode Statistic Type C* 04/10/2023 VT Episode Statistic Recent* 04/10/2023 0 Episode Statistic Type C* 04/10/2023 VT Episode Statistic Recent* 04/10/2023 59534975034798 Episode Statistic Recent* 04/10/2023 67166989521896 Episode Statistic Recent* 04/10/2023 04391218115421 Episode Statistic Recent* 04/10/2023 47506956354856 Episode Statistic Total * 04/10/2023 3 Episode Statistic Type C* 04/10/2023 VT Episode Statistic Total * 04/10/2023 0 Episode Statistic Type C* 04/10/2023 VT Episode Statistic Total * 04/10/2023 45262241103051 Episode Statistic Total * 04/10/2023 41576378053256 Episode Statistic Total * 04/10/2023 99962557728173 Episode Statistic Total * 04/10/2023 58955362858391 Hospital Outpatient Visit on 04/07/2023 Component Date Value Ventricular Rate ECG/Min 04/07/2023 61 QRSD Interval 04/07/2023 202 QT Interval 04/07/2023 496 QTC Interval 04/07/2023 499 R [place] 04/07/2023 112 T Wave [place] 04/07/2023 -49 Hospital Outpatient Visit on 03/22/2023 Component Date Value Date Time Interrogation * 03/23/2023 [id number] Implantable Pulse Genera* 03/23/2023 Medtronic Implantable Pulse Genera* 03/23/2023 [id number] [place] XT SR MRI Implantable Pulse Genera* 03/23/2023 [id number] Type Interrogation Sessi* 03/23/2023 Remote Clinic Name 03/23/2023 [facility] Implantable Pulse Genera* 03/23/2023 Pacemaker Implantable Pulse Genera* 03/23/202320171009 Implantable Lead Manufac* 03/23/2023 Medtronic Implantable Lead Model 03/23/2023 4196 Attain Ability MRI SureScan Implantable Lead Serial * 03/23/2023 [id number] Implantable Lead Implant* 03/23/202320171009 Implantable Lead Polarit* 03/23/2023 Bipolar Lead Implantable Lead Locatio* 03/23/2023 UNKNOWN Implantable Lead Special* 03/23/2023 Lead length: 88 cm Implantable Lead Location 03/23/2023 Left Ventricle Cholo Setting Mode (NBG * 03/23/2023 VVIR Cholo Setting Lower Rate* 03/23/2023 60 Cholo Setting Maximum Se* 03/23/2023 130 Lead Channel Setting Sen* 03/23/2023 Bipolar Lead Channel Setting Sen* 03/23/2023 Right Ventricle Lead Channel Setting Sen* 03/23/2023 Ring Lead Channel Setting Sen* 03/23/2023 Right Ventricle Lead Channel Setting Sen* 03/23/2023 Tip Lead Channel Setting Sen* 03/23/2023 0.9 Lead Channel Setting Pac* 03/23/2023 Bipolar Lead Channel Setting Pac* 03/23/2023 Right Ventricle Lead Channel Setting Pac* 03/23/2023 Ring Lead Channel Setting Sen* 03/23/2023 Right Ventricle Lead Channel Setting Sen* 03/23/2023 Tip Lead Channel Setting Pac* 03/23/2023 0.4 Lead Channel Setting Pac* 03/23/2023 2.5 Lead Channel Setting Pac* 03/23/2023 Adaptive Zone Setting Type Catego* 03/23/2023 VF Zone Setting Type Catego* 03/23/2023 VT Zone Setting Type Catego* 03/23/2023 VT Zone Setting Type Catego* 03/23/2023 VT Zone Setting Detection I* 03/23/2023 360 Zone Setting Type Catego* 03/23/2023 ATRIAL_FIBRILLATION Zone Setting Type Catego* 03/23/2023 AT/AF Lead Channel Impedance V* 03/23/2023 608 Lead Channel Impedance V* 03/23/2023 304 Lead Channel Sensing Int* 03/23/2023 13.125 Lead Channel Sensing Int* 03/23/2023 13.125 Lead Channel Pacing Thre* 03/23/2023 1.125 Lead Channel Pacing Thre* 03/23/2023 0.4 Battery Date Time of Taylor* 03/23/2023 25634586608492 Battery Status 03/23/2023 Middle of Service Battery DIGITAL MANAGER Trigger 03/23/2023 2.625 Battery Remaining Longev* 03/23/2023 95 Battery Voltage 03/23/2023 3.00 Cholo Statistic Date Jay* 03/23/2023 42280077610605 Cholo Statistic Date Jay* 03/23/2023 88409655094434 Cholo Statistic RV Perce* 03/23/2023 99.01 Episode Statistic Recent* 03/23/2023 0 Episode Statistic Type C* 03/23/2023 Patient Activated Episode Statistic Recent* 03/23/2023 1 Episode Statistic Type C* 03/23/2023 VT Episode Statistic Recent* 03/23/2023 0 Episode Statistic Type C* 03/23/2023 VT Episode Statistic Recent* 03/23/2023 48815995665116 Episode Statistic Recent* 03/23/2023 66396808033354 Episode Statistic Recent* 03/23/2023 48459122401092 Episode Statistic Recent* 03/23/2023 02814247816945 Episode Statistic Recent* 03/23/2023 82869536110753 Episode Statistic Recent* 03/23/2023 56639654217359 Episode Statistic Total * 03/23/2023 0 Episode Statistic Type C* 03/23/2023 Patient Activated Episode Statistic Total * 03/23/2023 3 Episode Statistic Type C* 03/23/2023 VT Episode Statistic Total * 03/23/2023 0 Episode Statistic Type C* 03/23/2023 VT Episode Statistic Total * 03/23/2023 79910451683304 Episode Statistic Total * 03/23/2023 08563939435243 Episode Statistic Total * 03/23/2023 44041822327944 Episode Statistic Total * 03/23/2023 12572861583804 Episode Statistic Total * 03/23/2023 81696959234477 Episode Statistic Total * 03/23/2023 28787128124067 Episode Identifier 03/23/2023 3 Episode Type Category 03/23/2023 VT Episode Date Time 03/23/2023 [id number] Episode Duration 03/23/2023 2 Pertinent imaging studies have been reviewed and are notable for: ECG: Narrative & Impression IMPRESSION: Electronic ventricular pacemaker Probable Atrial fibrillation Prolonged QT When compared with ECG of 07-APR-2023 10:59, QT has lengthened Reviewed by ART [place] Chest x-ray: IMPRESSION: No change since 04/07/2023. Sternotomy and AVR. Stable mild cardiomegaly. Pacemaker with single lead in a cardiac vein. Calcified granuloma left lower lobe. Mild elevation of the left hemidiaphragm and mild left basilar atelectasis. Calcified aorta. Surgical clips RUQ. Degenerative changes of the spine. Transthoracic Echocardiogram: Final Impressions 1. 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 2. Aortic valve prosthetic orifice area by Doppler: 1.20 cm2 , systolic mean Doppler gradient 14 mmHg. 3. Trivial aortic valve prosthetic regurgitation no periprosthetic regurgitation. 4. Mildly enlarged left ventricular chamber size, no regional wall motion abnormalities, calculated2-D linear ejection fraction 52%. 5. Intraventricular mechanical dyssynchrony is present with early lateral wall activation. 6. Mild-moderately enlarged right ventricular chamber size, mildly reduced systolic function, estimated right ventricular systolic pressure 34 mmHg (right atrial pressure of 5 mmHg). 7. Averaged right ventricular free wall longitudinal peak systolic strain, vendor calculated, is -21% (normal </= -25%). 8. Mild-moderate mitral valve regurgitation (functional, multiple small jets). 9. Moderate tricuspid valve regurgitation. 10. Normal inferior vena cava size with normal inspiratory collapse (>50%). 11. No pericardial effusion. 12. Compared to the report of 05/03/2022 no significant change has occurred. Side by side comparison of images performed. ASSESSMENT / PLAN #1 Status post 23 mm aortic valve Mcclelland II prosthesis, at outside facility (07-MAR-2017) #2 abdominal aortic aneurysm Mr. Kearney continues to do well from a heart standpoint. He denies any new cardiac symptoms. He is still very active. I have discussed all of his cardiac testing in detail. His echocardiogram showed that his aortic prosthesis is functioning normally. He is normal left ventricle size and function.We discussed symptoms to be watchful for would plan on follow-up again in 1 year. He was in agreement with the plan. All questions were answered. Electronically signed by: Devi Stafford APRN, C.N.P., M.S.N. 05/02/23 1:55 PM CDT documented in this encounter Plan of Treatment Upcoming Encounters Date Type Department Care Team (Late st Contact Info) Description 09/25/2023 3:00 PM EXAMINATION GRADER External Outreach Division of Nephrology and Hypertension in [address] [phone] Eddie Sheffield Jr., D.O. [address] [place] [phone] Arrived 12/04/2023 10:30 AM CDT Clinical Communication Virtual Review in [place], [place] [address] [place] [address] 12/06/2023 7:40 AM CDT Lab Department of Laboratory Medicine and Pathology, [address] [phone] Jemal Murrell M.B.B.S., MYudy [address] [place] [phone] 12/06/2023 8:00 AM CDT Appointment Department of Radiology, [facility] in [address] [phone] Jemal Murrell M.B.B.S., MYudy [address] [place] [phone] 12/06/2023 9:20 AM CDT Appointment Department of Radiology, [facility], in [address] [phone] Jemal Murrell M.B.B.S., M.D. [address] [place] [phone] 12/06/2023 10:00 AM CDT Appointment Department of Radiology, [facility], in [place], [place] [address] [place] [address] Jemal Murrell M.B.B.S., M.D. [address] [place] [phone] 12/06/2023 1:30 PM CDT Office Visit Division of Endocrinology in [place], [place] [address] [place] [phone] Zara Garvey APRN, C.N.P., D.N.P. [address] [place] [phone] Scheduled Orders Name Type Priority Associated Diagnoses Order Schedule Albumin Lab Routine Prosthesis Aortic Valve Expected: 05/02/2024 (Approximate), Expires: 05/02/2025 Creatinine with Estimated GFR Lab Routine Prosthesis Aortic Valve Expected: 05/02/2024 (Approximate), Expires: 05/02/2025 Glucose, Fasting Lab Routine Prosthesis Aortic Valve Expected: 05/02/2024 (Approximate), Expires: 05/02/2025 Potassium Lab Routine Prosthesis Aortic Valve Expected: 05/02/2024 (Approximate), Expires: 05/02/2025 Sodium Lab Routine Prosthesis Aortic Valve Expected: 05/02/2024 (Approximate), Expires: 05/02/2025 Prothrombin Time (PT) Lab Routine Prosthesis Aortic Valve Expected: 05/02/2024 (Approximate), Expires: 05/02/2025 CBC with Differential, Blood Lab Routine Prosthesis Aortic Valve Expected: 05/02/2024 (Approximate), Expires: 05/02/2025 Lipid Panel Lab Routine Prosthesis Aortic Valve Expected: 05/02/2024 (Approximate), Expires: 05/02/2025 DX Chest AP or PA and Lateral 2 Views Imaging RAD - Routine (most inpatients and all outpatients) Prosthesis Aortic Valve Expected: 05/02/2024 (Approximate), Expires: 05/02/2025 NT-Pro B-Type Natriuretic Peptide (BNP) Lab Routine Prosthesis Aortic Valve Expected: 05/02/2024 (Approximate), Expires: 05/02/2025 Echo Transthoracic (TTE) - Complex Valvular Heart Disease Echocardiography Routine Prosthesis Aortic Valve Expected: 05/02/2024 (Approximate), Expires: 08/01/2024 ECG 12 Lead ECG Routine Prosthesis Aortic Valve Expected: 05/02/2024 (Approximate), Expires: 08/01/2024 US Aorta Imaging RAD - Routine (most inpatients and all outpatients) Prosthesis Aortic Valve Expected: 05/02/2024 (Approximate), Expires: 08/01/2024 Scheduled Referrals Name Type Priority Associated Diagnoses Order Schedule Cardiovascular Disease office visit (clinic) General Outpatient Referral Routine Expected: 05/02/2024 (Approximate), Expires: 08/01/2024 documented as of this encounter Procedures Procedure Name Priority Date/Time Associated Diagnosis Comments 25-HYDROXYVITAMIN D2 AND D3, S Routine 05/02/2023 9:25 AM CDT Malignant Neoplasm Of Thyroid (HCC) documented in this encounter Results * 25-Hydroxyvitamin D2 and D3 (05/02/2023 9:25 AM CDT) 25-Hydroxy D2 <4.0 ng/mL 05/04/2023 8:25 AM CDT [facility] 25-Hydroxy D3 49 ng/mL 05/04/2023 8:25 AM CDT [facility] 25-Hydroxy D Total 49 ng/mL 2022 8:25 AM CDT [facility] Comment: ----REFERENCE VALUE---- 25-HYDROXY D TOTAL (D2+D3) Optimum levels in the healthy population are 20-50, patients with bone disease may benefit from higher levels within this range. ----ADDITIONAL INFORMATION---- This test was developed and its performance characteristics determined by [facility] in a manner consistent with CLIA requirements. This test has not been cleared or approved by the U.S. Food and Drug Administration. Blood (Blood, Venous) 05/02/2023 9:25 AM CDT 05/03/2023 7:27 AM CDT Devi Stafford APRN, C.N.P., M.S.N. LAB BLOOD ADD-ON [facility] [address] [place] [address] [facility] [address] [place] [address] [place] [address] documented in this encounter Visit Diagnoses Diagnosis Prosthesis Aortic Valve- Primary Malignant Neoplasm Of Thyroid (HCC) documented in this encounter Additional Health Concerns Assessment Noted Time PHQ-9 Depression Total Score: 5 03/06/20 18 6:00 PM CDT documented as of this encounter Care Teams Drive In Waiter/Waitress Relationship Specialty Start Date End Date Elsewhere, Pcp PCP - General Internal Medicine 09/13/22 documented as of this encounter
--- OUTSIDE RECORDS SUMMARY | 2023-09-25 09:00 | XMS_ITS | Encounter Summary ---
Author Name Unknown Organization [facility] Address [address] [place] [address] Care Team Providers Care Registered Pharmacy Technician Name Role Phone Elsewhere, Pcp Primary Care Provider Unavailabl e Encounter Details Date Type Department Care Team (Latest Contact Info) Description 06/22/2023 - 06/22/2023 11:59 PM CABIN MAN Hospital Encounter Department of Cardiovascular Diseases in [place], [place] [address] [place] [address] Sidra Gutierrez M.B.B.S. [address] [place] [address] Encounter For Checking And Testing Of Cardiac [...] How often do you attend chur or anabaptism services? 1 to 4 times per year 08/07/2022 Do you belong to any clubs o r organizations such as latter-day groups, unions, fraternal or athletic groups, or [...] Answer Date Recorded PHQ-2 Score 5 01/25/2019 [facility] of Occupat ional Health - Occupational Stress [...] place to sleep or slept in a fci (including now)? No 08/07/2022 Nutrition Answer Date [...] 1 tablet by mouth daily. Centrum (per asbestos worker) 0 10/09/2017 omeprazole (PriLOSEC) 20 mg capsuleIndications:Ga stroesophageal Reflux Disease TAKE ONE CAPSULE [...] st Contact Info) Description 09/25/2023 3:00 PM CABIN MAN External Outreach Division of Nephrology and Hypertension in [place], [place] 200 [place] [address] Eddie Sheffield Jr., D.O. [address] [place] [phone] Arrived 12/04/2023 10:30 AM CDT Clinical Communication Virtual Review in [place], [place] 200 [place] [address] 12/06/2023 7:40 AM CDT Lab Department of Laboratory Medicine and Pathology, [facility] in [place], [place] [address] [place] [phone] Jemal Murrell M.B.B.S., Alek [address] [place] [phone] 12/06/2023 8:00 AM CDT Appointment Department of Radiology, [facility] in [place], [place] [address] [place] [phone] Jemal Murrell M.B.B.S., Alek [address] [place] [phone] 12/06/2023 9:20 AM CDT Appointment Department of Radiology, [facility] in [place], [place] [address] [place] [phone] Jemal Murrell M.B.B.S., Alek [address] [place] [phone] 12/06/2023 10:00 AM CDT Appointment Department of Radiology, [facility] in [place], [place] [address] [place] [phone] Jemal Murrell M.B.B.S., Alek [address] [place] [phone] 12/06/2023 1:30 PM CDT Office Visit Division of Endocrinology in [place], [place] [address] [place] [phone] Zara Garvey APRN, C.N.P., D.N.P. [address] [place] [phone] documented as of this encounter Procedures Procedure Name Priority Date/Time Associated Diagnosis Comments PACER REMOTE FOLLOW UP Routine 06/28/2023 9:23 AM CABIN MAN Encounter For Checking And Testing Of Cardiac Pacemaker Pulse Generator Battery documented in this encounter Results * PACER REMOTE FOLLOW UP (06/28/2023 9:23 AM CABIN MAN) Date Time Interrogation Session [id number] [facility] Implantable Pulse Generator Chemical Process Project Engineer Medtronic [facility] Implantable Pulse Generator Model [id number] Preeti XT SR MRI [facility] Implantable Pulse Generator Serial Number [id number] [facility] Type Interrogation Session Remote [facility] Clinic Name [facility] Implantable Pulse Generator Type Pacemaker [facility] Implantable Pulse Generator Implant Date 20171009 [facility] Implantable Lead Chemical Process Project Engineer Medtronic [facility] Implantable Lead Model [id number] Attain Ability MRI SureScan [facility] Implantable Lead Serial Number [id number] [facility] Implantable Lead Implant Date 20171009 [facility] Implantable Lead Polarity Type Bipolar Lead [facility] Implantable Lead Location Detail 1 UNKNOWN [facility] Implantable Lead Special Function Lead length: 88 cm [facility] Implantable Lead Location Left Ventricle [facility] Cholo Setting Mode (NBG Code) VVIR [facility] Cholo Setting Lower Rate Limit 60 {beats}/ min [facility] Cholo Setting Maximum Sensor Rate 130 {beats}/ min [facility] Lead Channel Setting Sensing Polarity Bipolar [facility] Lead Channel Setting Sensing Anode Location Right Ventricle [facility] Lead Channel Setting Sensing Anode Terminal Ring [facility] Lead Channel Setting Sensing Cathode Location Right Ventricle [facility] Lead Channel Setting Sensing Cathode Terminal Tip [facility] Lead Channel Setting Sensing Sensitivity 0.9 mV [facility] Lead Channel Setting Pacing Polarity Bipolar [facility] Lead Channel Setting Pacing Anode Location Right Ventricle [facility] Lead Channel Setting Pacing Anode Terminal Ring [facility] Lead Channel Setting Sensing Cathode Location Right Ventricle [facility] Lead Channel Setting Sensing Cathode Terminal Tip [facility] Lead Channel Setting Pacing Pulse Width 0.4 ms [facility] Lead Channel Setting Pacing Amplitude 3 V [facility] Lead Channel Setting Pacing Capture [...] Time of Measurements [facility] Battery DIRECTOR OF MARKET INTELLIGENCE Trigger 2.625 [facility] Battery Remaining [...] [place] [facility] Episode Date Time [id number] [facility] Episode Duration 1 s [facility] Anatomical Region Laterality Modality Other 06/21/2023 10:5 8 PM CABIN MAN Narrative 06/29/2023 9:30 AM CABIN MAN PURPOSE OF VISIT: Routine remote transmission. PRESENTING EGM: ??STRUCTURAL STEEL WORKER HELPER at 60 bpm. ?? VENTRICULAR ARRHYTHMIAS: ??One [...] Sidra Garcia CV IMPLANTABLE CA RDIAC DEVICE documented in this encounter Visit Diagnoses Diagnosis Encounter For Checking And Testing Of Cardiac Pacemaker Pulse Generator Battery documented in this encounter Additional Health Concerns Assessment Noted Time PHQ-9 Depression Total Score: 5 03/06/20 18 6:00 PM CDT documented as of this encounter Care Teams Registered Pharmacy Technician Relationship Specialty Start Date End Date Elsewhere, Pcp PCP - General Internal Medicine 09/13/22 documented as of this encounter
--- OUTSIDE RECORDS SUMMARY | 2023-09-25 09:00 | XMS_ITS | Encounter Summary ---
Author Name Unknown Organization [facility] Address [address] [place] [address] Care Team Providers Care Crayon Molding Machine Operator Name Role Phone Elsewhere, Pcp Primary Care Provider Unavailabl e Reason for Visit * Reason Onset Date Comments Pre-visit Intake 05/01/2023 Encounter Details Date Type Department Care Team (Latest Contact Info) Description 05/01/2023 9:00 AM CDT Clinical Communication Virtual Review in [address] [address] Pre-visit Intake Social History Tobacco Use Types Packs/Day Years [...] often do you attend chur ch or congregation services? 1 to 4 times per year 08/07/2022 Do you belong to any clubs o r organizations such as alevism groups, unions, fraternal or athletic groups, or [...] Answer Date Recorded PHQ-2 Score 5 01/25/2019 [facility] - [facility]ational Stress Questionnaire Answer Date [...] place to sleep or slept in a long term (including now)? No 08/07/2022 Nutrition Answer Date [...] st Contact Info) Description 09/25/2023 3:00 PM JUICE STANDARDIZER External Outreach Division of Nephrology and Hypertension in [place], [place] [address] [place] [phone] Eddie Sheffield Jr., D.O. [address] [place] [phone] Arrived 12/04/2023 10:30 AM CDT Clinical Communication Virtual Review in [place], [place] 200 [place] [address] 12/06/2023 7:40 AM CDT Lab Department of Laboratory Medicine and Pathology, [facility] in [place], [place] [address] [place] [phone] Jemal Murrell M.B.B.S., Alek [address] [place] [phone] 12/06/2023 8:00 AM CDT Appointment Department of Radiology, [facility] in [place], [place] [address] [place] [phone] Jemal Murrell M.B.B.S., Alek [address] [place] [phone] 12/06/2023 9:20 AM CDT Appointment Department of Radiology, [facility] in [place], [place] [address] [place] [phone] Jemal Murrell M.B.B.S., Alek [address] [place] [phone] 12/06/2023 10:00 AM CDT Appointment Department of Radiology, [facility] [place], [place] [address] [place] [phone] Jemal Murrell M.B.B.S., Alek [address] [place] [phone] 12/06/2023 1:30 PM CDT Office Visit Division of Endocrinology in [place], [place] [address] [place] [phone] Zara Garvey APRN, C.N.P., D.N.P. [address] [place] [phone] documented as of this encounter Visit Diagnoses Not on filedocumented in this encounter Additional Health Concerns Assessment Noted Time PHQ-9 Depression Total Score: 5 03/06/20 18 6:00 PM CDT documented as of this encounter Care Teams Crayon Molding Machine Operator Relationship Specialty Start Date End Date Elsewhere, Pcp PCP - General Internal Medicine 09/13/22 documented as of this encounter
--- OUTSIDE RECORDS SUMMARY | 2023-09-25 09:00 | XMS_ITS | Encounter Summary ---
Author Name Unknown Organization [facility] Address [address] [place] [address] Care Team Providers Care Jet Blade Polisher Name Role Phone Elsewhere, Pcp Primary Care Provider Unavailabl e Reason for Referral * Outpatient (Routine) - Closed Specialty Diagnoses / Procedures Referred By Contac t Referred To Contact Diagnoses Aneurysm Abdominal Aortic Personal History Procedures US Aorta Devi Stafford APRN, C.NTato, M.S.N. [address] [place] [address] [facility] Region Referral ID Status Reason Start Date Expiration Date Visits Re quested Visits Authorized [id number] Closed 02/17/2023 02/17/2024 1 1 Reason for Visit * Outpatient (Routine) - Closed Specialty Diagnoses / Procedures Referred By Contac t Referred To Contact Diagnoses Aneurysm Abdominal Aortic Personal History Procedures US Aorta Devi Stafford APRN, C.NTato, M.S.N. [address] [place] [address] [facility] Region Referral ID Status Reason Start Date Expiration Date Visits Re quested Visits Authorized [id number] Closed 02/17/2023 02/17/2024 1 1 Encounter Details Date Type Department Care Team (Latest Contact Info) Description 04/25/2023 8:58 AM CDT - 04/25/2023 11:59 PM CDT Hospital Encounter Department of Radiology in [place] [address] [place] [address] Devi Stafford APRN, C.N.P., M.S.N. [address] [place] [address] Aneurysm Abdominal Aortic Personal History Discharge Disposition: Home or Self Care Social [...] often do you attend chur ch or yarsani services? 1 to 4 times per year 08/07/2022 Do you belong to any clubs o r organizations such as mu-ism groups, unions, fraternal or athletic groups, or [...] Answer Date Recorded PHQ-2 Score 5 01/25/2019 [facility] of Occupat ional Health - Occupational Stress [...] 20 mEq by mouth daily. 0 02/10/2020 melatonin 3 mg tablet Take 1 tablet by mouth at bedtime. 0 05/23/2017 multivitamin tablet Take 1 tablet by mouth daily. Centrum (per emotional support teacher) 0 10/09/2017 omeprazole (PriLOSEC) [address] capsuleIndications:Ga stroesophageal Reflux Disease TAKE ONE CAPSULE BY MOUTH ONE TIME DAILY FOR ACID REFLUX 100 capsule 3 05/21/2018 warfarin (COUMADIN) 1 mg tablet Take 4-5 tablets by mouth as directed. 4 tabs on Monday/Monday/Mon day 3 tabs all other days 0 10/09/2017 levothyroxine (SYNTHROID, LEVOTHROID) 175 mcg tablet TAKE 1 TABLET BY MOUTH EVERY MORNING BEFORE BREAKFAST. 90 tablet 3 03/18/2022 05/17/2023 documented as of this encounter Plan of Treatment Upcoming Encounters Date Type Department Care Team (Late st Contact Info) Description 09/25/2023 3:00 PM ADMINISTRATIVE PROFESSIONAL External Outreach Division of Nephrology and Hypertension in [place], [place] [address] [place] [phone] Eddie Sheffield Jr., D.O. [address] [place] [phone] Arrived 12/04/2023 10:30 AM CDT Clinical Communication Virtual Review in [address] [address] 12/06/2023 7:40 AM CDT Lab Department of Laboratory Medicine and Pathology, [place], [place] [address] [place] [phone] Jemal Murrell M.B.B.SDavis, M.Kiko. [address] [place] [phone] 12/06/2023 8:00 AM CDT Appointment Department of Radiology, [facility] in [place], [place] [address] [place] [phone] Jemal Murrell M.B.B.S., Alek [address] [place] [phone] 12/06/2023 9:20 AM CDT Appointment Department of Radiology, [facility] in [place], [place] [address] [place] [phone] Jemal Murrell M.B.B.S., Alek [address] [place] [phone] 12/06/2023 10:00 AM CDT Appointment Department of Radiology, [facility] in [place], [place] [address] [place] [phone] Jemal Murrell M.B.B.S., Alek [address] [place] [phone] 12/06/2023 1:30 PM CDT Office Visit Division of Endocrinology in [place], [place] [address] [place] [phone] Zara Garvey, ROSAURA, C.N.P., D.N.P. [address] [place] [phone] documented as of this encounter Procedures Procedure Name Priority Date/Time Associated Diagnosis Comments US AORTA RAD - Routine (most inpatients and all outpatients) 04/25/2023 9:31 AM CDT Aneurysm Abdominal Aortic Personal History documented in this encounter Results * US Aorta (04/25/2023 9:31 AM CDT) Anatomical Region Laterality Modality Abdomen, Pelvis, Ultrasound RST LOS, Ultrasound ARZ LOS, Ultrasound FLA LOS, Procedural N/A Ultrasound 04/25/2023 9:50 AM CDT Impressions 04/25/2023 9:52 AM CDT Stable 4.0 cm infrarenal abdominal aortic aneurysm. 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 Narrative 04/25/2023 9:52 AM CDT EXAM: US AORTA Exam performed with color and spectral Doppler analysis. COMPARISON: Ultrasound aorta 06/14/2022 FINDINGS: Aorta proximal: AP - 3.0 cm Aorta proximal: Trans - 2.9 cm Aorta distal: AP - 4.0 cm, unchanged from 06/14/2022. Aorta distal: Trans - 4.0 cm, unchanged from 06/14/2022. Right ZHANG: AP - 1.6 cm, previously measuring 1.5 cm on 06/14/2022. Right ZHANG: Trans - 1.6 cm Left ZHANG: AP - 1.2 cm, previously measuring 1.5 cm on 06/14/2022 Left ZHANG: Trans - 1.2 cm Procedure Note Wesley Nava M.D. - 04/25/2023 EXAM: US AORTA Exam performed with color and spectral Doppler analysis. COMPARISON: Ultrasound aorta 06/14/2022 FINDINGS: Aorta proximal: AP - 3.0 cm Aorta proximal: Trans - 2.9 cm Aorta distal: AP - 4.0 cm, unchanged from 06/14/2022. Aorta distal: Trans - 4.0 cm, unchanged from 06/14/2022. Right ZHANG: AP - 1.6 cm, previously measuring 1.5 cm on 06/14/2022. Right ZHANG: Trans - 1.6 cm Left ZHANG: AP - 1.2 cm, previously measuring 1.5 cm on 06/14/2022 Left ZHANG: Trans - 1.2 cm IMPRESSION: Stable 4.0 cm infrarenal abdominal aortic aneurysm. 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 Devi Stafford APRN C.N.PDavis, M.S.N. IMG US PROCEDURES documented in this encounter Visit Diagnoses Diagnosis Aneurysm Abdominal Aortic Personal History documented in this encounter Additional Health Concerns Assessment Noted Time PHQ-9 Depression Total Score: 5 03/06/20 18 6:00 PM CDT documented as of this encounter Care Teams Jet Blade Polisher Relationship Specialty Start Date End Date Elsewhere, Pcp PCP - General Internal Medicine 09/13/22 documented as of this encounter
--- OUTSIDE RECORDS SUMMARY | 2023-09-25 09:00 | XMS_ITS | Encounter Summary ---
Author Name Unknown Organization [facility] Address [address] [place] [address] Care Team Providers Care Paste Mixing Supervisor Name Role Phone Elsewhere, Pcp Primary Care Provider Unavailabl e Reason for Visit * Reason Onset Date Comments Med Refill levothyroxine 05/17/2023 Encounter Details Date Type Department Care Team (Late st Contact Info) Description 05/17/2023 Refill Division of Endocrinology in [place], [place] [address] [place] [phone] Laura Sy M.D. [address] [place] [phone] Med Refill; levothyroxine Social History Tobacco Use Types Packs/Day Years [...] How often do you attend chur or sabianism services? 1 to 4 times per year 08/07/2022 Do you belong to any clubs o r organizations such as lutheran groups, unions, fraternal or athletic groups, or [...] Answer Date Recorded PHQ-2 Score 5 01/25/2019 [facility] of Occupat ionmi Health - Occupational Stress Questionnaire Answer Date [...] place to sleep or slept in a skilled nursing (including now)? No 08/07/2022 Nutrition Answer Date [...] st Contact Info) Description 09/25/2023 3:00 PM SURVIVAL SPECIALIST External Outreach Division of Nephrology and Hypertension in [place], [place] [address] [place] [phone] Eddie Sheffield Jr., D.O. [address] [place] [phone] Arrived 12/04/2023 10:30 AM CDT Clinical Communication Virtual Review in [place], [place] 200 [place] [address] 12/06/2023 7:40 AM CDT Lab Department of Laboratory Medicine and Pathology, [facility] in [place], [place] [address] [place] [phone] Jemal Murrell M.B.B.S., Alek [address] [place] [phone] 12/06/2023 8:00 AM CDT Appointment Department of Radiology, [facility] in [place], [place] [address] [place] [phone] Jemal Murrell M.B.B.S., Alek [address] [place] [phone] 12/06/2023 9:20 AM CDT Appointment Department of Radiology, [facility], in [place], [place] [address] [place] [phone] eJmal Murrell M.B.B.S., Alek [address] [place] [phone] 12/06/2023 10:00 AM CDT Appointment Department of Radiology, [facility], in [place], [place] [address] [place] [phone] Jemal Murrell M.B.B.S., Alek [address] [place] [phone] 12/06/2023 1:30 PM CDT Office Visit Division of Endocrinology in [place], [place] [address] [place] [phone] Zara Garvey, ROSAURA, C.N.P., D.N.P. [address] [place] [phone] documented as of this encounter Visit Diagnoses Not on filedocumented in this encounter Additional Health Concerns Assessment Noted Time PHQ-9 Depression Total Score: 5 03/06/20 18 6:00 PM CDT documented as of this encounter Care Teams Paste Mixing Supervisor Relationship Specialty Start Date End Date Elsewhere, Pcp PCP - General Internal Medicine 09/13/22 documented as of this encounter
--- OUTSIDE RECORDS SUMMARY | 2023-09-25 09:00 | XMS_ITS | Encounter Summary ---
Author Name Unknown Organization [facility] Address [address] [place] [address] Care Team Providers Care Communications Program Manager Name Role Phone Elsewhere, Pcp Primary Care Provider Unavailabl e Reason for Referral * Outpatient (Routine) - Closed Specialty Diagnoses / Procedures Referred By Jennac t Referred To Contact Diagnoses Prosthesis Aortic Valve Procedures DX Chest AP or PA and Lateral 2 Views Devi Stafford APRN, C.NTato, M.S.N. [address] [place] [phone] [facility] Referral ID Status Reason Start Date Expiration Date Visits Re quested Visits Authorized [id number] Closed 05/04/2022 05/04/2023 1 1 Reason for Visit * Outpatient (Routine) - Closed Specialty Diagnoses / Procedures Referred By Contac t Referred To Contact Diagnoses Prosthesis Aortic Valve Procedures DX Chest AP or PA and Lateral 2 Views Devi Stafford APRN, C.NTato, M.S.N. [address] [place] [phone] [facility] Referral ID Status Reason Start Date Expiration Date Visits Re quested Visits Authorized [id number] Closed 05/04/2022 05/04/2023 1 1 Encounter Details Date Type Department Care Team (Latest Contact Info) Description 05/02/2023 11:24 AM CDT - 05/02/2023 11:59 PM CDT Hospital Encounter Department of Radiology, [facility], in [place], [place] 200 [place] [phone] Devi Stafford APRN, C.N.P., M.S.N. 200 [place] [phone] Prosthesis Aortic Valve Discharge Disposition: Home or Self Care Social [...] often do you attend chur ch or christianity services? 1 to 4 times per year 08/07/2022 Do you belong to any clubs o r organizations such as scientologist groups, unions, fraternal or athletic groups, or [...] Answer Date Recorded PHQ-2 Score 5 01/25/2019 [facility] - Occupational [...] place to sleep or slept in a nursing home (including now)? No 08/07/2022 Nutrition Answer [...] 1 tablet by mouth daily. Centrum (per mobile paint specialist) 0 10/09/2017 omeprazole (PriLOSEC) [address] [...] st Contact Info) Description 09/25/2023 3:00 PM DENITRATOR OPERATOR External Outreach Division of Nephrology and Hypertension in [place], [place] [address] [place] [phone] Eddie Sheffield Jr., D.O. [address] [place] [phone] Arrived 12/04/2023 10:30 AM CDT Clinical Communication Virtual Review in [place], [place] 200 [place] [address] 12/06/2023 7:40 AM CDT Lab Department of Laboratory Medicine and Pathology, [facility] in [place], [place] [address] [place] [phone] Jemal Murrell M.B.B.S., MMary. [address] [place] [phone] 12/06/2023 8:00 AM CDT Appointment Department of Radiology, [facility] in [place], [place] [address] [place] [phone] Jemal Murrell M.B.B.S., Alek [address] [place] [phone] 12/06/2023 9:20 AM CDT Appointment Department of Radiology, [facility] in [place], [place] [address] [place] [phone] Jemal Murrell M.B.B.S., Alek [address] [place] [phone] 12/06/2023 10:00 AM CDT Appointment Department of Radiology, [facility] in [place], [place] [address] [place] [phone] Jemal Murrell M.B.B.S., Alek [address] [place] [phone] 12/06/2023 1:30 PM CDT Office Visit Division of Endocrinology in [place], [place] [address] [place] [phone] Zara Garvey, ROSAURA, C.N.P., D.N.P. [address] [place] [phone] documented as of this encounter Procedures Procedure Name Priority Date/Time Associated Diagnosis Comments DX CHEST AP OR PA AND LATERAL 2 VIEWS RAD - Routine (most inpatients and all outpatients) 05/02/2023 11:43 AM CDT Prosthesis Aortic Valve documented in this encounter Results * DX Chest AP or PA and Lateral 2 Views (05/02/2023 11:43 AM CDT) Anatomical Region Laterality Modality Chest, Thoracic RST LOS, Tho racic ARZ LOS, Thoracic FLA LOS N/A Digital Radiography 05/02/2023 12:1 1 PM CDT Impressions 05/02/2023 12:16 PM CDT No change since 04/07/2023. Sternotomy and AVR. Stable mild cardiomegaly. Pacemaker with single lead in a cardiac vein. Calcified granuloma left lower lobe. Mild elevation of the left hemidiaphragm and mild left basilar atelectasis. Calcified aorta. Surgical clips RUQ. Degenerative changes of the spine. Narrative 05/02/2023 12:16 PM CDT EXAM: ??DX CHEST AP OR PA AND LATERAL 2 VIEWS Procedure Note Jemal Villalta M.D. - 05/02/2023 EXAM: DX CHEST AP OR PA AND LATERAL 2 VIEWS IMPRESSION: No change since 04/07/2023. Sternotomy and AVR. Stable mild cardiomegaly.Pacemaker with single lead in a cardiac vein. Calcified granuloma left lower lobe.Mild elevation of the left hemidiaphragm and mild left basilar atelectasis. Calcified aorta. Surgicalclips RUQ. Degenerative changes of the spine. Devi Stafford APRN C.N.P., M.S.N. IMG DIAGNOSTIC IMAGING PROCEDURES documented in this encounter Visit Diagnoses Diagnosis Prosthesis Aortic Valve documented in this encounter Additional Health Concerns Assessment Noted Time PHQ-9 Depression Total Score: 5 03/06/20 18 6:00 PM CDT documented as of this encounter Care Teams Communications Program Manager Relationship Specialty Start Date End Date Elsewhere, Pcp PCP - General Internal Medicine 09/13/22 documented as of this encounter
--- OUTSIDE RECORDS SUMMARY | 2023-09-25 09:00 | XMS_ITS | Encounter Summary ---
Author Name Unknown Organization [facility] Address [address] [place] [address] Care Team Providers Care Behavior Clinician Name Role Phone Elsewhere, Pcp Primary Care Provider Unavailabl e Reason for Visit * Auth/Cert (Routine) Specialty Diagnoses / Procedures Referred By Jessica t Referred To Contact Diagnoses Hypertension And Chronic Kidney Disease Stage 4 (HCC) Chronic Systolic (Congestive) Heart Failure (HCC) Hypertension And Chronic Kidney Disease Stage 4 (HCC) [I12.9, N18.4] Chronic Systolic (Congestive) Heart Failure (HCC) [I50.22] Procedures IA LIG/BANDING ANGIOACCESS AVF Radiocephalic Arteriovenous Fistula Ligation Referral ID Status Reason Start Date Expiration Date Visits Re quested Visits Authorized [id number] 1 1 Encounter Details Date Type Department Care Team (Late st Contact Info) Description 04/10/2023 8:16 AM CDT Anesthesia Event RST ROMB MAIN OR [address] [place] [phone] Alcira Valladares M.D. [address] [place] [phone] Katy Miles, CONSUMER BANKER, SLIDE FORMING MACHINE TENDER [address] [place] [phone] Anesthesia Record Procedure Summary Procedure Name Responsible Anesthesiologist Anesthesia Start Time Anesthesia Stop Time Radiocephalic Arteriovenous Fistula Ligation. (Right) Alcira Valladares M.D. 04/10/23 0816 04/10/23 0937 Events Date Time Event Comment 04/10/2023 0816 An Start Machine/Equipme nt Checked Infection Precautions Followed Procedure/Site Verified NPO Status Verified Supine Standard ASA Monitors Applied 08 Anesthesia Time Out 825 Block Start 0830 Block End 08 Turnover to Proceduralist 0846 Proc Start 920 Proc Fin 922 Turnover to ANE Staff 922 Quick Note Patient placed on RA 0927 an stop data 0937 An End I completed my handoff to the receiving staff during which we 1. Identified the patient 2. Identified the responsible provider 3. Reviewed the pertinent medical history 4. Discussed the surgical course 5. Reviewed intra-op anesthesia management and issues during anesthesia 6. Set expectations for post-procedure period 7. Allowed opportunity for questions and acknowledgement of understanding. Meds Name Total propofol 10 mg/mL infusion 62.28 mg remimazolam 2.5 mg/mL injection 6 mg ondansetron 4 mg/2 mL injection 4 mg ceFAZolin injection 2,000 mg (ANCEF) 2 g acetaminophen 1,000 mg/100 mL injection 1,000 mg mepivacaine PF 1.5% injection 30 mL EPINEPHrine 0.1 mg/mL Regional 0.15 mg plasmalyte-A free drip 150 mL * Agents No agents on file. * Blood No blood administrations on file. Lines, Drains, and Airways Type Details Placement Removal Peripheral IV Existing LDA Placed by: Other hospital; Catheter Size: 20 G; Orientation: Left; Location: Wrist; Removal Reason: Per protocol 03/05/18 0340 by Retired (Do not use) Hemodialysis AV Access 03/09/18 0221 by Closed/Suction Drain 04/20/18; 2136; Rig ht; Neck; Bulb; 10 mm 04/20/186 by Eugenia Forbes, R.N. Wound 04/10/23; N; Incisio n; Arm; Distal, Lower, Right; dermabond 04/10/23 0000 by Julian Cervantes M.S.N., R.N. Peripheral IV Placement Date: 04/10/23; Placement Time: 624; Catheter Size: 20 G; Orientation: Anterior, Left, Lower, Proximal; Location: Forearm; Site Prep: Chlorhexidine (Preferred); Technique: Anatomical landmarks; Inserted by: TF; Insertion Attempts: 1; Removal Date: 04/10/23; Removal Time: 1027; Removal Reason: Completion of therapy 04/10/23 0625 by Chato Disla M.S.N., R.N. 04/10/23 1027 by June Hare R.N., CCRN documented in this encounter Social History Tobacco Use Types Packs/Day Years [...] week 08/07/2022 How often do you attend [facility] or confucianism services? 1 to 4 times per year [...] Answer Date Recorded PHQ-2 Score 5 01/25/2019 [facility] - Occupational Stress Questionnaire Answer Date [...] PM CDT documented as of this encounter OR Notes * Anesthesia Postprocedure Evaluation - Alcira Valladares M.D. - 04/10/2023 9:53 AM CDT Patient: Jose Kearney Procedure Summary Date: 04/10/23 Room / Location: [place] [address] / [facility] in [place], [place] Anesthesia Start: 815 Anesthesia Stop: 936 Procedure: Radiocephalic Arteriovenous Fistula Ligation. (Right) Diagnosis: Hypertension And Chronic Kidney Disease Stage 4 (HCC) Chronic Systolic (Congestive) Heart Failure (HCC) (Hypertension And Chronic Kidney Disease Stage 4 (HCC) [I12.9, N18.4], Chronic Systolic (Congestive) Heart Failure (HCC) [I50.22].) Providers: Shannen Bailon M.D. Responsible Provider: Alcira Valladares M.D. Anesthesia Type: regional ASA Status: 3 Anesthesia Type: regional Last vitals Vitals Value Taken Time BP 178/100 04/10/23 0945 Temp 36.3 ??C 04/10/23 0930 Pulse 62 04/10/23 0953 Resp SpO2 93 % 04/10/23 0953 Vitals shown include unvalidated device data. Please reference Vitals flowsheet for most recent vital signs. Anesthesia Post Evaluation Patient Disposition: dismissal Cardiovascular status: hemodynamics (HR & BP) acceptable Respiratory status: patent airway with spontaneous effort Temperature: normothermic Oxygen requirements: room air Level of consciousness: awake Pain score: pain adequately controlled and/or at baseline Post Op nausea/vomiting: none Hydration status: euvolemic * Anesthesia Procedure Notes - Katy Miles APRN, CRNA - 04/10/2023 8:39 AM CDTAssociated Order(s): Regional Block Regional Block Date/Time: 04/10/2023 8:39 AM Performed by: Christopher Luu M.D. Authorized by: Christopher Luu M.D. Location: OR PROCEDURE DETAILS: Block Indication: primary anesthetic Block Type - Upper extremity: supraclavicular Positioning: supine Laterality: right Block technique: ultrasound guided Ultrasound image guidance used to localize target, identify at risk structures, and dynamically used to direct therapy to the target. Procedure was performed under sterile conditions.Image not saved Injection technique: single injection Needle type: insulated Gauge: 22G Length: 10 Test dose: yes- negative test dose Incremental injection of local anesthetic with aspiration every:5cc Pain with needle advancement or injection of local anesthetic: no Injected Medications: Injection(s), anesthetic agent(s) and/or steroid; See [facility] UNIVERSAL PROTOCOL All relevant documentation and testing were reviewed and available. All required blood products, implants, devices and or special equipment were made available as applicable. Pre-procedure verification was conducted and the correct site was marked if required. A fire risk assessment was done as applicable. The procedural time-out to verify correct patient, correct side/site, and procedure was conducted prior to performing the procedure and confirmed in a procedural pause. PRE-PROCEDURE DETAILS: Appropriate hand hygiene, gown, cap, mask, protective eyewear, sterile gloves, skin preparation, sterile drape, and strict aseptic technique were utilized as applicable for the procedure.: yes Skin prep: chlorhexidine / alcohol SEDATION / ANESTHESIA Anesthesia method: local infiltration POST-PROCEDURE DETAILS: Procedure completed successfully: successful procedure Other complications: none * Anesthesia Preprocedure Evaluation - Alcira Valladares M.D. - 04/10/2023 8:02 AM CDT Preprocedure Anesthesia & H&P Assessment Procedure Summary Date/Time: 04/10/23809 Procedure: Radiocephalic Arteriovenous Fistula Ligation. (Right) Diagnosis: Hypertension And Chronic Kidney Disease Stage 4 (HCC) [I12.9, N18.4] Chronic Systolic (Congestive) Heart Failure (HCC) [I50.22] Pre-op diagnosis: Hypertension And Chronic Kidney Disease Stage 4 (HCC) [I12.9, N18.4], Chronic Systolic (Congestive) Heart Failure (HCC) [I50.22]. Location: [address] [facility] in [place], [place] Providers: Shannen Bailon M.D. Pertinent components of the patient's history including current problem list, medical history, surgical history, family history, social history, medications and allergies were reviewed. Present illness and pre-op diagnosis were confirmed. The planned surgery / procedure was verified with the patient / legal guardian. The patient's general health condition remains unchanged RELEVANT COMORBID CONDITIONS ANESTHESIA (within normal limits) CV S/p AVR (+) Atrial Fibrillation Permanent (HCC) (+) Bundle Branch Block Left (+) Chronic Systolic (Congestive) Heart Failure (HCC) (+) Endocarditis (+) Flutter Atrial (HCC) (+) Heart Failure NOS (+) Hypertension And Chronic Kidney Disease Stage 4 (HCC) RENAL/REPRO (+) Hypertension And Chronic Kidney Disease Stage 4 (HCC) (+) Osteodystrophy Renal ENDO (+) Hypothyroidism Primary HEME (+) Anticoagulant Therapy OBJECTIVE PHYSICAL EXAMINATION Airway (HEENT) Mallampati: II TM Distance: >3 FB Neck ROM: Full Mouth Opening: >3 cm Cardiovascular Rhythm: Irregular Rate: Normal Cardiovascular Assessment: cardiovascular normal Functional Capacity: >4 METS Pulmonary Pulmonary Assessment: Clear General / Constitutional Constitutional Assessment: Normal Neurological Neurologic Assessment: alert and alert and oriented x 3 Dental Dental Assessment: dentition intact ASSESSMENT / PLAN ANESTHESIA PLAN ASA: 3 Anesthesia Plan: regional SCB with MAC Patient seen and allergies reviewed, anesthesia plan and risks discussed directly with patient /legal guardian or through an furnace combination analyst. The use of blood products not discussed Approval to Proceed: approved for anesthesia documented in this encounter Plan of Treatment Upcoming Encounters Date Type Department Care Team (Late st Contact Info) Description 09/25/2023 3:00 PM BOATSWAIN MATE External Outreach Division of Nephrology and Hypertension in [place], [place] [address] [place] [phone] Eddie Sheffield Jr., D.O. [address] [place] [phone] Arrived 12/04/2023 10:30 AM CDT Clinical Communication Virtual Review in [place], [place] 200 [place] [address] 12/06/2023 7:40 AM CDT Lab Department of Laboratory Medicine and Pathology, [facility] in [place], [place] [address] [place] [phone] Jemal Murrell M.B.B.S., Alek [address] [place] [phone] 12/06/2023 8:00 AM CDT Appointment Department of Radiology, [facility] in [place], [place] [address] [place] [phone] Jemal Murrell M.B.B.S., MYudy [address] [place] [phone] 12/06/2023 9:20 AM CDT Appointment Department of Radiology, [facility] in [place], [place] [address] [place] [phone] Jemal Murrell M.B.B.S., MYudy [address] [place] [phone] 12/06/2023 10:00 AM CDT Appointment Department of Radiology, [facility], in [place], [place] [address] [place] [phone] Jemal Murrell M.B.B.S., M.D. [address] [place] [phone] 12/06/2023 1:30 PM CDT Office Visit Division of Endocrinology in [place], [place] [address] [place] [phone] Zara Garvey APRN, C.N.P., D.N.P. [address] [place] [phone] documented as of this encounter Procedures Procedure Name Priority Date/Time Associated Diagnosis Comments ANESTHESIA REGIONAL BLOCK Routine 04/10/2023 8:39 AM CDT documented in this encounter Results * Regional Block (04/10/2023 8:39 AM CDT) Narrative Katy Miles APRN, CRNA - 04/10/2023 8:39 AM CDT Katy Miles APRN, CRNA ? 04/10/2023 ??8:49 AM Regional Block Date/Time: 04/10/2023 8:39 AM Performed by: Christopher Luu M.D. Authorized by: Christopher Luu M.D. ?? Location: OR PROCEDURE DETAILS: Block Indication: primary anesthetic ?? Block Type - Upper extremity: supraclavicular Positioning: supine ?? Laterality: right Block technique: ultrasound guided ?? Ultrasound image guidance used to localize target, identify at risk structures, and dynamically used to direct therapy to the target. Procedure was performed under sterile conditions.Image not saved Injection technique: single injection Needle type: insulated Gauge: 22G Length: 10 Test dose: yes- negative test dose ?? Incremental injection of local anesthetic with aspiration every:5cc Pain with needle advancement or injection of local anesthetic: no ?? Injected Medications: Injection(s), anesthetic agent(s) and/or steroid; See [facility] UNIVERSAL PROTOCOL All relevant documentation and testing were reviewed and available. All required blood products, implants, devices and or special equipment were made available as applicable. Pre-procedure verification was conducted and the correct site was marked if required. A fire risk assessment was done as applicable. The procedural time-out to verify correct patient, correct side/site, and procedure was conducted prior to performing the procedure and confirmed in a procedural pause. PRE-PROCEDURE DETAILS: ?? Appropriate hand hygiene, gown, cap, mask, protective eyewear, sterile gloves, skin preparation, sterile drape, and strict aseptic technique were utilized as applicable for the procedure.: yes ?? Skin prep: chlorhexidine / alcohol SEDATION / ANESTHESIA Anesthesia method: local infiltration POST-PROCEDURE DETAILS: Procedure completed successfully: successful procedure Other complications: none Christopher Luu M.D. PROCEDURE/MINOR DENNIS GICAL ORDERABLES documented in this encounter Visit Diagnoses Not on filedocumented in this encounter Administered Medications Inactive Administered Medications - up to 3 most recent administrations Medication Order MAR Action Action Date Dose Rate Site acetaminophen injection intravenous, Administer over 15 Minutes, As needed, Starting on Mon04/10/23 at 0832, Anesthesia Intra-op Given 04/10/2023 8:32 AM CDT 1,000 mg ceFAZolin injection 2,000 mg (ANCEF) 2,000 mg (rounded from 1,780 mg = 25 mg/kg ? 71.2 kg), intravenous, Once, On Mon04/10/23 at 0730, For 1 dose, Intra-Op, Preoperatively within 1 hour prior to surgical incision If needed, reconstitute vial per package insert instructions. See IVAG for administration guidelines., Drug Monitoring Program: Pharmacist to adjust medication dosing based on indication and drug clearance factors., Indications: Prophylaxis, surgical Given 04/10/2023 8:43 AM CDT 2 g electrolyte-A solution (PLASMA-LYTE A) intravenous, Continuous Infusion: Per Instructions PRN, Starting on Mon04/10/23 at 0818, Anesthesia Intra-op New Bag 04/10/2023 8:18 AM CDT EPINEPHrine injection (ADRENALIN) intrathecal, As needed, Starting on Mon04/10/23 at 0829, Anesthesia Intra-op Given 04/10/2023 8:29 AM CDT 0.15 mg mepivacaine (PF) 15 mg/mL (1.5 %) injection (POLOCAINE) peripheral nerve block, As needed, Starting on Mon04/10/23 at 0829, Anesthesia Intra-op Given 04/10/2023 8:29 AM CDT 30 mL ondansetron (PF) injection (ZOFRAN) intravenous, As needed, Starting on Mon04/10/23 at 0824, Anesthesia Intra-op Given 04/10/2023 8:24 AM CDT 4 mg propofol 10 mg/mL infusion (DIPRIVAN) intravenous, Continuous Infusion: Per Instructions PRN, Starting on Mon04/10/23 at 0831, Anesthesia Intra-op New Bag 04/10/2023 8:31 AM CDT 20 mcg/kg/min 8.304 mL/hr remimazolam injection (BYFAVO) intravenous, As needed, Starting on Mon04/10/23 at 0824, Anesthesia Intra-op Given 04/10/2023 8:29 AM CDT 2 mg Given 04/10/2023 8:24 AM CDT 4 mg documented in this encounter Additional Health Concerns Assessment Noted Time PHQ-9 Depression Total Score: 5 03/06/20 18 6:00 PM CDT documented as of this encounter Care Teams Behavior Clinician Relationship Specialty Start Date End Date Elsewhere, Pcp PCP - General Internal Medicine 09/13/22 documented as of this encounter
--- OUTSIDE RECORDS SUMMARY | 2023-09-25 09:00 | XMS_ITS | Encounter Summary ---
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 [address] [place] [phone] [facility] Referral ID Status Reason Start Date Expiration Date Visits Re quested Visits Authorized [id number] Closed 05/04/2022 05/04/2023 1 1 Encounter Details Date Type Department Care Team (Latest Contact Info) Description 05/02/2023 9:48 AM CDT - 05/02/2023 11:23 AM CDT Hospital Encounter Department of Cardiovascular Diseases in [place], [place] 200 [place] [address] Devi Stafford APRN, C.NTripp., M.S.N. 200 [place] [address] Prosthesis Aortic Valve Discharge Disposition: Home or [...] often do you attend chur ch or religion services? 1 to 4 times per year 08/07/2022 Do you belong to any clubs o r organizations such as shinto groups, unions, fraternal or athletic groups, or [...] Answer Date Recorded PHQ-2 Score 5 01/25/2019 [facility] of Occupat ional Health - Occupational Stress [...] place to sleep or slept in a longterm (including now)? No 08/07/2022 Nutrition Answer Date [...] 1 tablet by mouth daily. Centrum (per upscale security officer) 0 10/09/2017 omeprazole (PriLOSEC) 20 mg capsuleIndications:Ga [...] st Contact Info) Description 09/25/2023 3:00 PM WRAPPER LAYER AND EXAMINER SOFT WORK External Outreach Division of Nephrology and Hypertension in [place], [place] [address] [place] [phone] Eddie Sheffield Jr., D.O. [address] [place] [phone] Arrived 12/04/2023 10:30 AM CDT Clinical Communication Virtual Review in [address] [address] 12/06/2023 7:40 AM CDT Lab Department of Laboratory Medicine and Pathology, [facility] in [place], [place] [address] [place] [phone] Jemal Murrell M.B.B.SDavis, M.Kiko. [address] [place] [phone] 12/06/2023 8:00 AM CDT Appointment Department of Radiology, [facility] in [place], [place] [address] [place] [phone] Jemal Murrell M.B.B.S., Alek [address] [place] [phone] 12/06/2023 9:20 AM CDT Appointment Department of Radiology, [facility] in [place], [place] [address] [place] [phone] Jemal Murrell M.B.B.S., Alek [address] [place] [phone] 12/06/2023 10:00 AM CDT Appointment Department of Radiology, [facility] in [place], [place] [address] [place] [phone] Jemal Murrell M.B.B.S., Alek [address] [place] [phone] 12/06/2023 1:30 PM CDT Office Visit Division of Endocrinology in [place], [place] [address] [place] [phone] Zara Garvey APRN, C.N.P., D.N.P. [address] [place] [phone] documented as of this encounter Procedures Procedure Name Priority Date/Time Associated Diagnosis Comments (TTE) 2D ECHO DOPPLER COLOR Routine 05/02/2023 11:03 AM CDT Prosthesis Aortic Valve documented in this encounter Results * (TTE) 2D ECHO DOPPLER COLOR (05/02/2023 11:03 AM CDT) Ejection Fraction 52 MC CV EIMS Mid-Ascending Aorta 35 MC CV EIMS LV End-Diastolic Diameter 44 MC CV EIMS LV End-Systolic Diameter 32 MC CV EIMS LV End-Diastolic Volume 171 MC CV EIMS LV End-Systolic Volume 75 MC CV EIMS MV E Velocity 0.9 MC CV EIMS Left ventricular stroke volume index 33 MC CV EIMS Cardiac Output 3.61 MC CV EIMS Cardiac Index 2.01 MC CV EIMS Tricuspid Annular S? 0.05 MC CV EIMS RV Free Wall Strain -21 MC CV EIMS TR Vmax 2.7 MC CV EIMS RA Pressure 5 MC CV EIMS RV Systolic Pressure 34 MC CV EIMS AV mean gradient 14 MC CV EIMS Aortic valve area 1.2 MC CV EIMS Aortic Valve Area Index 0.67 MC CV EIMS Aortic Valve Dimensionless Index 0.29 MC CV EIMS LA Volume Index 54 MC CV EIMS Aortic Valve Systolic Peak Velocity 2.6 MC CV EIMS Anatomical Region Laterality Modality Echocardiography 05/02/2023 9:53 AM CDT Impressions 05/02/2023 11:22 AM CDT LEFT VENTRICLE:Mildly enlarged left ventricular chamber size. Abnormal ventricular septal motion - post-operative. Normal left ventricular wall thickness. Calculated 2-D linear left ventricular ejection fraction 52%. Calculated 2-D biplane volumetric left ventricular ejection fraction of 56% without the use of ultrasound enhancing agent. No regional wall motion abnormalities. Indeterminate left ventricular diastolic function. RIGHT VENTRICLE:Mild-moderately enlarged right ventricular chamber size. Mildly reduced right ventricular systolic function. Estimated right ventricular systolic pressure 34 mmHg (right atrial pressure of 5 mmHg). Averaged right ventricular free wall longitudinal peak systolic strain, vendor calculated, is -21% (normal </= -25%). ATRIA:Severely enlarged left atrial size. Left atrial volume index 54 ml/m2. Moderately enlarged right atrial size. 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 Aortic valve prosthesis systolic mean Doppler gradient 14 mmHg. Aortic valve prosthetic orifice area by Doppler: 1.20 cm2 Trivial aortic valve prosthetic regurgitation. No aortic valve periprosthetic regurgitation. Mildly thickened mitral valve. Mild-moderate mitral valve regurgitation. Normal pulmonary valve. Normal pulmonary valve systolic velocities. Trivial pulmonary valve regurgitation. Morphologically normal tricuspid valve. Moderate tricuspid valve regurgitation. OTHER ECHO FINDINGS:Normal inferior vena cava size with normal inspiratory collapse (>50%). 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 No atrial level shunt by color flow imaging. Prominent anterior epicardial fat layer. No ??pericardial effusion. No intracardiac mass or thrombus, but the left atrial appendage cannot be visualized adequately with transthoracic echo to exclude thrombus in this location. For the complete report, see the Order-Level Documents. Narrative 05/02/2023 11:22 AM CDT For the complete report, see the Order-Level Documents. Hemodynamics Blood Pressure: 151 / 103 mmHg ECG: Sinus rhythm Final Impressions 1. 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 2. Aortic valve prosthetic orifice area by Doppler: 1.20 cm2 , systolic mean Doppler gradient 14 mm Hg. 3. Trivial aortic valve prosthetic regurgitation ??no ??periprosthetic regurgitation. 4. Mildly enlarged left ventricular chamber size, no regional wall motion abnormalities, calculated 2-D linear ejection fraction 52%. 5. Intraventricular mechanical dyssynchrony is present ??with early lateral wall activation. 6. Mild-moderately enlarged [...] with normal inspiratory collapse (>50%). 11. No ??pericardial effusion. 12. Compared to the report of 05/03/2022 no significant change has occurred. Side by side comparison of images performed. Procedure Note Hallie Pollard M.B.B.S., M.H.S. - 05/02/2023 For the complete report, see the Order-Level Documents. Hemodynamics Blood Pressure: 151 / 103 mmHg ECG: Sinus rhythm Final Impressions 1. 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 2. Aortic valve prosthetic orifice area by Doppler: 1.20 cm2 , systolicmean Doppler gradient 14 mm Hg. 3. Trivial aortic valve prosthetic regurgitation no periprostheticregurgitation. 4. Mildly enlarged left ventricular chamber size, no regional wall motionabnormalities, calculated 2-D linear ejection fraction 52%. 5. Intraventricular mechanical dyssynchrony is present with early lateralwall activation. 6. Mild-moderately enlarged right ventricular chamber size, mildly reducedsystolic function, estimated right ventricular systolic pressure 34 mmHg(right atrial pressure of 5 mmHg). 7. Averaged right ventricular free wall longitudinal peak systolic strain,vendor calculated, is -21% (normal </= -25%). 8. Mild-moderate mitral valve regurgitation (functional, multiple smalljets). 9. Moderate tricuspid valve regurgitation. 10. Normal inferior vena cava size with normal inspiratory collapse(>50%). 11. No pericardial effusion. 12. Compared to the report of 05/03/2022 no significant change hasoccurred. Side by side comparison of images performed. Findings LEFT VENTRICLE:Mildly enlarged left ventricular chamber size. Abnormalventricular septal motion - post-operative. Normal left ventricular wallthickness. Calculated 2-D linear left ventricular ejection fraction 52%.Calculated 2-D biplane volumetric left ventricular ejection fraction of56% without the use of ultrasound enhancing agent. No regional wall motionabnormalities. Indeterminate left ventricular diastolic function. RIGHT VENTRICLE:Mild-moderately enlarged right ventricular chamber size.Mildly reduced right ventricular systolic function. Estimated rightventricular systolic pressure 34 mmHg (right atrial pressure of 5 mmHg).Averaged right ventricular free wall longitudinal peak systolic strain,vendor calculated, is -21% (normal </= - 25%). ATRIA:Severely enlarged left atrial size. Left atrial volume index 54ml/m2. Moderately enlarged right atrial size. 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 Aortic valve prosthesis systolic mean Dopplergradient 14 mmHg. Aortic valve prosthetic orifice area by Doppler: 1.20cm2 Trivial aortic valve prosthetic regurgitation. No aortic valveperiprosthetic regurgitation. Mildly thickened mitral valve. Mild-moderatemitral valve regurgitation. Normal pulmonary valve. Normal pulmonary valvesystolic velocities. Trivial pulmonary valve regurgitation.Morphologically normal tricuspid valve. Moderate tricuspid valveregurgitation. OTHER ECHO FINDINGS:Normal inferior vena cava size with normal inspiratorycollapse (>50%). Normal mid ascending aorta diameter of 35 mm (status postascending aorta graft repair in 2007). 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 No atrial level shunt by color flow imaging. Prominentanterior epicardial fat layer. No pericardial effusion. No intracardiacmass or thrombus, but the left atrial appendage cannot be visualizedadequately with transthoracic echo to exclude thrombus in this location. For the complete report, see the Order-Level Documents. Jass Barnard APRN.N.Marilee., M.S.N. CV ECHO PROCEDURES documented in this encounter Visit Diagnoses Diagnosis Prosthesis Aortic Valve documented in this encounter Additional Health Concerns Assessment Noted Time PHQ-9 Depression Total Score: 5 03/06/20 18 6:00 PM CDT documented as of this encounter Care Teams Hand Stonecutter Relationship Specialty Start Date End Date Elsewhere, Pcp PCP - General Internal Medicine 09/13/22 documented as of this encounter
--- OUTSIDE RECORDS SUMMARY | 2023-09-25 09:00 | XMS_ITS | Encounter Summary ---
Author Name Unknown Organization [facility] Address [address] [place] [address] Care Team Providers Care Recreational Programs Director Name Role Phone Elsewhere, Pcp Primary Care Provider Unavailabl e Encounter Details Date Type Department Care Team (Latest Contact Info) Description 05/02/2023 9:00 AM CDT - 05/02/2023 9:47 AM CDT Hospital Encounter Department of Laboratory Medicine and Pathology, [facility] in [place], [place] [address] [place] [phone] Devi Stafford, ROSAURA, C.N.P., M.S.N. [address] [place] [phone] Prosthesis Aortic Valve Discharge Disposition: Home or [...] How often do you attend chur or restorationism services? 1 to 4 times per year 08/07/2022 Do you belong to any clubs o r organizations such as samaritan groups, unions, fraternal or athletic groups, or [...] Answer Date Recorded PHQ-2 Score 5 01/25/2019 [facility] of Occupat ional Health - Occupational [...] place to sleep or slept in a penitentiary (including now)? No 08/07/2022 Nutrition Answer Date [...] 1 tablet by mouth daily. Centrum (per carbon paste mixer operator) 0 10/09/2017 omeprazole (PriLOSEC) 20 mg [...] st Contact Info) Description 09/25/2023 3:00 PM BARREL MAKER External Outreach Division of Nephrology and Hypertension in [place], [place] [address] [place] [phone] Eddie Sheffield Jr., D.O. [address] [place] [phone] Arrived 12/04/2023 10:30 AM CDT Clinical Communication Virtual Review in [place], [place] 200 [place] [address] 12/06/2023 7:40 AM CDT Lab Department of Laboratory Medicine and Pathology, [facility] in [place], [place] [address] [place] [phone] Jemal Murrell M.B.B.S., Alek [address] [place] [phone] 12/06/2023 8:00 AM CDT Appointment Department of Radiology, [facility] in [place], [place] [address] [place] [phone] Jemal Murrell M.B.B.S., Alek [address] [place] [phone] 12/06/2023 9:20 AM CDT Appointment Department of Radiology, [facility], in [place], [place] [address] [place] [phone] Jemal Murrell M.B.B.S., Alek [address] [place] [phone] 12/06/2023 10:00 AM CDT Appointment Department of Radiology, [facility], in [place], [place] [address] [place] [phone] Jemal Murrell M.B.B.S., Alek [address] [place] [phone] 12/06/2023 1:30 PM CDT Office Visit Division of Endocrinology in [place], [place] [address] [place] [phone] Zara Garvey, ROSAURA, C.N.P., D.N.P. [address] [place] [phone] documented as of this encounter Procedures Procedure Name Priority Date/Time Associated Diagnosis Comments LIPID PANEL, S Routine 05/02/2023 9:28 AM CDT Prosthesis Aortic Valve NT-PRO B-TYPE NATRIURETIC PEPTIDE (BNP), S Routine 05/02/2023 9:28 AM CDT Prosthesis Aortic Valve CBC WITH DIFFERENTIAL, B Routine 05/02/2023 9:28 AM CDT Prosthesis Aortic Valve SODIUM, S/P Routine 05/02/2023 9:28 AM CDT Prosthesis Aortic Valve POTASSIUM, S/P Routine 05/02/2023 9:28 AM CDT Prosthesis Aortic Valve GLUCOSE, FASTING, S/P Routine 05/02/2023 9:28 AM CDT Prosthesis Aortic Valve CREATININE WITH EGFR, S/P Routine 05/02/2023 9:28 AM CDT Prosthesis Aortic Valve ALBUMIN, S/P Routine 05/02/2023 9:28 AM CDT Prosthesis Aortic Valve PROTHROMBIN TIME (PT), P Routine 05/02/2023 9:27 AM CDT Prosthesis Aortic Valve documented in this encounter Results * (ABNORMAL) NT-Pro B-Type Natriuretic Peptide (BNP) (05/02/2023 9:28 AM CDT) NT-Pro BNP 1913(H) <=540 pg/mL 05/02/2023 10:49 AM CDT DTL Comment: NT-proBNP values less than 300 pg/mL have a 99% negative predictive value for excluding acute congestive heart failure. A cutoff of 1200 pg/mL for patients with an eGFR<60 yields a diagnostic sensitivity and specificity of 89% and 72% for acute congestive heart failure. A diagnostic NT-proBNP cutoff of 1800 pg/mL has been suggested in adults over 75 years of age in the absence of renal failure. Blood (Blood, Venous) 05/02/2023 9:28 AM CDT 05/02/2023 10:09 AM CDT Seven Barnard APRNNTripp., M.S.N. LAB BLOOD ADD-ON [facility] [address] [place] [address], [facility] [address] [place] [address] * Lipid Panel (05/02/2023 9:28 AM CDT) Triglycerides 86 mg/dL 05/02/2023 10:49 AM CDT DT Comment: ----REFERENCE VALUE---- Normal: <150 mg/dL Borderline High: 150-199 mg/dL High: 200-499 mg/dL Very High: > or =500 mg/dL Cholesterol, Total 163 mg/dL 2022 10:49 AM CDT DTL Comment: ----REFERENCE VALUE---- Desirable: < 200 mg/dL Borderline High: 200 - 239 mg/dL High: > or = 240 mg/dL Cholesterol, LDL, Calculated 98 mg/dL 05/02/2023 10:49 AM CDT DTL Comment: ----REFERENCE VALUE---- Desirable: <100 mg/dL Above Desirable: 100-129 mg/dL Borderline High: 130-159 mg/dL High: 160-189 mg/dL Very High: >=190 mg/dL ----ADDITIONAL INFORMATION---- LDL cholesterol calculated using the Navarro/NIH equation. Cholesterol, HDL, S 49 >=40 mg/dL 05/02/2023 10:49 AM CDT DTL Cholesterol, Non-HDL, Calculated 114 mg/dL 05/02/2023 10:49 AM CDT DTL Comment: ----REFERENCE VALUE---- Desirable: <130 mg/dL Above Desirable: 130-159 mg/dL Borderline High: 160-189 mg/dL High: 190-219 mg/dL Very High: > or =220 mg/dL Fasting (8 HR or more) Yes 05/02/2023 10:09 AM CDT DTL Blood (Blood, Venous) 05/02/2023 9:28 AM CDT 05/02/2023 10:09 AM CDT Seven Barnard APRNNTripp., M.S.N. LAB BLOOD ADD-ON [facility] [address] [place] [address], [facility] [place] [address] [place] [address] * (ABNORMAL) CBC with Differential, Blood (05/02/2023 9:28 AM CDT) Hemoglobin 15.1 13.2 - 16.6 g/dL 05/02/2023 10:11 AM CDT DTL Hematocrit 44.4 38.3 - 48.6 % 05/02/2023 10:11 AM CDT DTL Erythrocytes 4.65 4.35 - 5.65 x10(12)/L 05/02/2023 10:11 AM CDT DTL MCV 95.5 78.2 - 97.9 fL 05/02/2023 10:11 AM CDT DTL RBC Distrib Width 12.3 11.8 - 14.5 % 05/02/2023 10:11 AM CDT DTL Platelet Count 225 135 - 317 x10(9)/L 05/02/2023 10:11 AM CDT DTL Leukocytes 6.1 3.4 - 9.6 x10(9)/L 05/02/2023 10:11 AM CDT DTL Neutrophils 4.34 1.56 - 6.45 x10(9)/L 05/02/2023 10:11 AM CDT DHPM Lymphocytes 0.76(L) 0.95 - 3.07 x10(9)/L 05/02/2023 10:11 AM CDT DTL Monocytes 0.62 0.26 - 0.81 x10(9)/L 05/02/2023 10:11 AM CDT DTL Eosinophils 0.33 0.03 - 0.48 x10(9)/L 05/02/2023 10:11 AM CDT DTL Basophils 0.06 0.01 - 0.08 x10(9)/L 05/02/2023 10:11 AM CDT DTL Blood (Blood, Venous) 05/02/2023 9:28 AM CDT 05/02/2023 9:35 AM CDT Devi Stafford APRN, C.N.P., M.S.N. LAB BLOOD ADD-ON [facility] [address] [facility] [address] 200 [place] [address] * Sodium (05/02/2023 9:28 AM CDT) Sodium, S 142 135 - 145 mmol/L 05/02/2023 10:49 AM CDT DTL Blood (Blood, Venous) 05/02/2023 9:28 AM CDT 05/02/2023 10:09 AM CDT Seven Barnard APRNNTripp., M.S.N. LAB BLOOD ADD-ON [facility] 200 [place], [place] [phone] [place] [address] [facility] [place] 200 [place] [address] * Potassium (05/02/2023 9:28 AM CDT) Potassium, S 4.7 3.6 - 5.2 mmol/L 05/02/2023 10:49 AM CDT DTL Blood (Blood, Venous) 05/02/2023 9:28 AM CDT 05/02/2023 10:09 AM CDT Devi Stafford APRN, C.N.P., M.S.N. LAB BLOOD ADD-ON Performing Organization Address City/[facility]/ZIP Co de Phone Number [facility] 200 [place], [place] [phone] [place] [address] [address] * (ABNORMAL) Glucose, Fasting (05/02/2023 9:28 AM CDT) Glucose, P 102(H) 70 - 100 mg/dL 05/02/2023 10:23 AM CDT DTL Last Intake 15 hr 05/02/2023 10:09 AM CDT DTL Blood (Blood, Venous) 05/02/2023 9:28 AM CDT 05/02/2023 10:09 AM CDT Devi Stafford APRN, C.N.P., M.S.N. LAB BLOOD NON ADD-ON Performing Organization Address City/[facility] Co de Phone Number [facility] 200 [place] [address], [address] [address] * (ABNORMAL) Creatinine with Estimated GFR (05/02/2023 9:28 AM CDT) Creatinine 2.09(H) 0.74 - 1.35 mg/dL 05/02/2023 10:49 AM CDT DTL Estimated GFR (eGFR) 31(L) >=60 mL/min/BSA 05/02/2023 10:49 AM CDT DTL Comment: Estimated GFR calculated using the 2020 CKD_EPI creatinine equation. Blood (Blood, Venous) 05/02/2023 9:28 AM CDT 05/02/2023 10:09 AM CDT Devi Stafford APRN, C.N.P., M.S.N. LAB BLOOD ADD-ON Performing Organization Address City/[facility]/ZIP Co de Phone Number [facility] 200 [place], [place] [address] [place] 200 [place] [address] * Albumin (05/02/2023 9:28 AM CDT) Albumin, S 4.3 3.5 - 5.0 g/dL 05/02/2023 10:49 AM CDT DTL Blood (Blood, Venous) 05/02/2023 9:28 AM CDT 05/02/2023 10:09 AM CDT Devi Stafford APRN, C.N.P., M.S.N. LAB BLOOD ADD-ON Performing Organization Address City/[facility] Co de Phone Number [facility] 200 [place], [place] [address] [place] 200 [place] [address] * (ABNORMAL) Prothrombin Time (PT) (05/02/2023 9:27 AM CDT) Prothrombin Time, P 26.4(H) 9.4 - 12.5 sec 05/02/2023 10:18 AM CDT DTL INR 2.4 0.9 - 1.1 05/02/2023 10:18 AM CDT DTL Comment: ----ADDITIONAL INFORMATION---- Standard intensity warfarin therapeutic range: 2.0 to 3.0 ?? High intensity warfarin therapeutic range: 2.5 to 3.5 Blood (Blood, Venous) 05/02/2023 9:27 AM CDT 05/02/2023 9:52 AM CDT Devi Stafford APRN, C.N.P., M.S.N. LAB BLOOD ADD-ON Performing Organization Address City/[facility]/ZIP Co de Phone Number [facility] 200 [place], [place] [phone] [place] [address] [facility] 200 [place] [address] documented in this encounter Visit Diagnoses Diagnosis Prosthesis Aortic Valve documented in this encounter Additional Health Concerns Assessment Noted Time PHQ-9 Depression Total Score: 5 03/06/20 18 6:00 PM CDT documented as of this encounter Care Teams Recreational Programs Director Relationship Specialty Start Date End Date Elsewhere, Pcp PCP - General Internal Medicine 09/13/22 documented as of this encounter
--- OUTSIDE RECORDS SUMMARY | 2023-09-25 09:01 | XMS_ITS | Encounter Summary ---
Author Name Unknown Organization [facility] Address [address] [place] [address] Care Team Providers Care Employee Relations Specialist Name Role Phone Elsewhere, Pcp Primary Care Provider Unavailabl e Reason for Referral * Outpatient (Routine) - Closed Specialty Diagnoses / Procedures Referred By Contac t Referred To Contact Diagnoses Atrial Fibrillation Permanent (HCC) Procedures ECG 12 Lead Eddie Sheffield Jr., D.O. [address] [place] [address] [facility] Region Referral ID Status Reason Start Date Expiration Date Visits Re quested Visits Authorized [id number] Closed 04/04/2023 04/03/2024 1 1 Reason for Visit * Outpatient (Routine) - Closed Specialty Diagnoses / Procedures Referred By Jessica patel Referred To Contact Diagnoses Atrial Fibrillation Permanent (HCC) Procedures ECG 12 Lead Eddie Sheffield Jr., D.O. [address] [place] [address] [facility] Region Referral ID Status Reason Start Date Expiration Date Visits Re quested Visits Authorized [id number] Closed 04/04/2023 04/03/2024 1 1 Encounter Details Date Type Department Care Team (Latest Contact Info) Description 04/07/2023 10:50 AM CDT - 04/07/2023 10:59 AM CDT Hospital Encounter Department of Radiology in [place], [place] [address] [place] [address] Eddie Sheffield Jr., Kiko.O. [address] [place] [address] Atrial Fibrillation Permanent (HCC) Discharge Disposition: Home or Self Care Social [...] How often do you attend chur or druze services? 1 to 4 times per year 08/07/2022 Do you belong to any clubs o r organizations such as restoration groups, unions, fraternal or athletic groups, or [...] Answer Date Recorded PHQ-2 Score 5 01/25/2019 [facility] - Occupational [...] place to sleep or slept in a assisted (including now)? No 08/07/2022 Nutrition Answer Date [...] 1 tablet by mouth daily. 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 4 tabs on Monday/Monday/Mon 3 tabs all other days 0 10/09/2017 levothyroxine (SYNTHROID, LEVOTHROID) 175 mcg tablet TAKE 1 TABLET BY MOUTH EVERY MORNING BEFORE BREAKFAST. 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 [address] [place] [phone] Arrived 12/04/2023 10:30 AM CDT Clinical Communication Virtual Review in [place], [place] [address] [place] [address] 12/06/2023 7:40 AM CDT Lab Department of Laboratory Medicine and Pathology, [facility] in [place], [place] [address] [place] [phone] Jemal Murrell M.B.B.S., MYudy [address] [place] [phone] 12/06/2023 8:00 AM CDT Appointment Department of Radiology, [facility] in [address] [phone] Jemal Murrell M.B.B.S., MYudy [address] [place] [phone] 12/06/2023 9:20 AM CDT Appointment Department of Radiology, [facility], in [place], [place] [address] [place] [address] Jemal Murrell M.B.B.S., Alek [address] [place] [phone] 12/06/2023 10:00 AM CDT Appointment Department of Radiology, [facility] in [place], [place] [address] [place] [address] Jemal Murrell M.B.B.S., Alek [address] [place] [phone] 12/06/2023 1:30 PM CDT Office Visit Division of Endocrinology in [place], [place] [address] [place] [phone] Zara Garvey APRN, C.N.P., D.N.P. [address] [place] [phone] documented as of this encounter Procedures Procedure Name Priority Date/Time Associated Diagnosis Comments ECG Routine 04/07/2023 10:59 AM CDT Atrial Fibrillation Permanent (HCC) documented in this encounter Results * ECG 12 Lead (04/07/2023 10:59 AM CDT) Ventricular Rate ECG/Min 61 BPM MUSE QRSD Interval 202 ms MUSE QT Interval 496 ms MUSE QTC Interval 499 ms MUSE R [place] 112 degrees MUSE T Wave [place] -49 degrees MUSE 04/07/2023 10:5 9 AM CDT 04/07/2023 11:20 AM CDT Impressions MUSE - 04/07/2023 11:20 AM CDT Electronic ventricular pacemaker Probable Atrial fibrillation When compared with ECG of 03-MAY-2022 10:37, QT has shortened Reviewed by ART Shay Narrative Procedure Note Tito Elliott Jr., M.D. - 04/07/2023 IMPRESSION: Electronic ventricular pacemaker Probable Atrial fibrillation When compared with ECG of 03-MAY-2022 10:37, QT has shortened Reviewed by ART Shay Eddie Sheffield Jr., D.ODavis ECG ORDERABL ES MUSE NA documented in this encounter Visit Diagnoses Diagnosis Atrial Fibrillation Permanent (HCC) documented in this encounter Additional Health Concerns Assessment Noted Time PHQ-9 Depression Total Score: 5 03/06/20 18 6:00 PM CDT documented as of this encounter Care Teams Employee Relations Specialist Relationship Specialty Start Date End Date Elsewhere, Pcp PCP - General Internal Medicine 09/13/22 documented as of this encounter
--- OUTSIDE RECORDS SUMMARY | 2023-09-25 09:01 | XMS_ITS | Encounter Summary ---
Author Name Unknown Organization [facility] Address [address] [place] [address] Care Team Providers Care Fleet Mechanic Name Role Phone Elsewhere, Pcp Primary Care Provider Unavailabl e Reason for Visit * Auth/Cert (Routine) Specialty Diagnoses / Procedures Referred By Jessica t Referred To Contact Diagnoses Hypertension And Chronic Kidney Disease Stage 4 (HCC) Chronic Systolic (Congestive) Heart Failure (HCC) Hypertension And Chronic Kidney Disease Stage 4 (HCC) [I12.9, N18.4] Chronic Systolic (Congestive) Heart Failure (HCC) [I50.22] Procedures NM LIG/BANDING ANGIOACCESS AVF Radiocephalic Arteriovenous Fistula Ligation Referral ID Status Reason Start Date Expiration Date Visits Re quested Visits Authorized [id number] 1 1 Encounter Details Date Type Department Care Team (Late st Contact Info) Description 04/10/2023 8:10 AM CDT - 04/10/2023 12:04 PM CDT Surgery [facility] MAIN OR [address] [place] [phone] Shannen Bailon M.D. [address] [place] [address] Radiocephalic Arteriovenous Fistula Ligation. Social History Tobacco Use Types Packs/Day Years [...] week 08/07/2022 How often do you attend [facility] or taoism services? 1 to 4 times per year 08/07/2022 Do you belong to any clubs o r organizations such as quaker groups, unions, fraternal or athletic groups, or [...] Answer Date Recorded PHQ-2 Score 5 01/25/2019 [facility] [...] PM CDT documented as of this encounter Last Filed Vital Signs Vital Sign Reading [...] Mass Index 23.94 04/10/2023 6:41 AM CDT documented in this encounter Medications at Time of Discharge [...] 1 tablet by mouth daily. Centrum (per circulation librarian) 0 10/09/2017 omeprazole (PriLOSEC) 20 mg capsuleIndications:Ga [...] 03/18/2022 05/17/2023 documented as of this encounter Progress Notes * Alison Santana APRN, C.N.Yvrose, M.S.N. - 04/10/2023 10:16 AM CDT CHIEF COMPLAINT/PURPOSE OF VISIT Patient seen in the Outpatient Recovery Unit. HISTORY OF PRESENT ILLNESS Mr. Kearney is a 82 y.o. male who underwent right radiocephalic AV fistula ligation under the careof Dr. Bailon earlier today. He was seen in the outpatient surgical unit. He has recovered well postoperatively and has met discharge criteria. PHYSICAL EXAMINATION General: Resting comfortably in the bed. No acute distress. Alert and oriented times three. Skin: Right forearm incision with Dermabond in place, no bleeding. Vessels: Right radial and ulnar pulses palpable. No thrill. IMPRESSION/REPORT/PLAN Mr. Kearney has recovered well from his surgical procedure. After Visit Summary and Brief Operative Note were given. Postoperative instructions were reviewed. He has the contact information for Dr. Bailon's surgical service should any questions or concerns arise. Surgical dressings should remainin place for 48 hours. documented in this encounter OR Notes * Rose - Shannen Bailon M.D. - 04/10/2023 8:46 AM CDT Pre-op Diagnosis Hypertension And Chronic Kidney Disease Stage 4 (HCC),Chronic Systolic (Congestive) Heart Failure (HCC) Post-op Diagnosis Hypertension And Chronic Kidney Disease Stage 4 (HCC),Chronic Systolic (Congestive) Heart Failure (HCC) Procedure performed Ligation of right radiocephalic fistula A bindery library technical assistant actively participated and was necessary for one or more of the following: opening, exposure and visualization during the case, maintaining hemostasis, wound closure resulting in itssafe and expeditious completion. Findings The venous outflow of the fistula was ligated and divided just distal to the arterial anastomosis. At the conclusion of the procedure there is no longer arterial flow present within the fistula, identified by the lack of a thrill or pulsation. The patient continued to have palpable radial and ulnarpulses at the wrist. Complications None Operative Note Narrative The patient was met in the preoperative holding area and all questions were answered. Consent for surgery was confirmed. He was taken to the operating room and placed on the operating room table in the supine position. Our anesthesia colleagues performed a right arm block. Monitored anesthesia carewas then induced. The right arm was prepped and draped in the usual sterile fashion. A time-out wasperformed verifying the correct patient, procedure, positioning, and postoperative destination. We began the procedure by making a 1.5 cm incision overlying the venous outflow of his radiocephalic fistula. Our dissection was carried down through the subcutaneous tissues using electrocautery. Circumf erential dissection was performed of the outflow vein and two 2-0 silk ties were passed. These weretied down and the vein itself was divided between the ties. The remaining stumps were suture ligated. We confirmed that there was no longer arterial flow through the fistula, identified by the lack of thrill or pulsation. There was another large venous branch tributary from the remaining stump thatwas doubly ligated with 2-0 silk ties. Hemostasis throughout the surgical wound was ensured. The subcutaneous tissues were reapproximated using interrupted 3-0 Vicryl. A 4-0 Monocryl was used to close the skin and Dermabond was applied. The procedure was then concluded. At the end of the procedure,all sponge, needle, and instrument counts were reported as correct x2. The patient was transferred to the PACU for further recovery. Shannen Bailon M.D. * Brief Op Note - Trini Vick M.B.BDavisS. - 04/10/2023 8:46 AM CDT Pre-op Diagnosis Hypertension And Chronic Kidney Disease Stage 4 (HCC),Chronic Systolic (Congestive) Heart Failure (HCC) Post-op Diagnosis Hypertension And Chronic Kidney Disease Stage 4 (HCC),Chronic Systolic (Congestive) Heart Failure (HCC) Findings Ligation of right radiocephalic AV fistula via right wrist incision. Absent pulse and thrill in fistula following ligation. Dermabond over incision. 2+ right radial and ulnar pulses at conclusion of the case. Complications None Radha Hamilton documented in this encounter Plan of Treatment Upcoming Encounters Date Type Department Care Team (Late st Contact Info) Description 09/25/2023 3:00 PM DIETARY SERVICES MANAGER External Outreach Division of Nephrology and Hypertension in [place], [place] [address] [place] [phone] Eddie Sheffield Jr., Kiko.O. [address] [place] [phone] Arrived 12/04/2023 10:30 AM CDT Clinical Communication Virtual Review in [place], [place] [address] [place] [address] 12/06/2023 7:40 AM CDT Lab Department of Laboratory Medicine and Pathology, [place], [place] [address] [place] [phone] Jemal Murrell M.B.B.S., M.D. [address] [place] [phone] 12/06/2023 8:00 AM CDT Appointment Department of Radiology, [facility] in [place], [place] [address] [place] [phone] Jemal Murrell M.B.B.S., Alek [address] [place] [phone] 12/06/2023 9:20 AM CDT Appointment Department of Radiology, [facility] in [place], [place] [address] [place] [phone] Jemal Murrell M.B.B.S., Alek [address] [place] [phone] 12/06/2023 10:00 AM CDT [facility] [place] [place] [address] [place] [address] Jemal Murrell M.B.B.S., Alek [address] [place] [phone] 12/06/2023 1:30 PM CDT Office Visit Division of Endocrinology in [place], [place] [address] [place] [phone] Zara Garvey APRN, C.N.P., D.N.P. [address] [place] [phone] documented as of this encounter Procedures Procedure Name Priority Date/Time Associated Diagnosis Comments ADULT OXYGEN THERAPY Routine 04/10/2023 9:41 AM CDT ADULT OXYGEN THERAPY Routine 04/10/2023 9:35 AM CDT PACER SINGLE/LEADS CHAMBER INTERROGATION WITH PROGRAMMING Routine 04/10/2023 8:09 AM CDT Encounter For Checking And Testing Of Cardiac Pacemaker Pulse Generator Battery REVISION ARTERIOVENOUS FISTULA OR GRAFT UPPER EXTREMITY 04/10/2023 7:56 AM CDT Hypertension And Chronic Kidney Disease Stage 4 (HCC) Chronic Systolic (Congestive) Heart Failure (HCC) documented in this encounter Results * PACER SINGLE/LEADS CHAMBER INTERROGATION WITH PROGRAMMING (04/10/2023 8:09 AM CDT) Date Time Interrogation Session [id number] [facility] Implantable Pulse Generator Basting Puller Medtronic [facility] Implantable Pulse Generator Model [id number] Colo XT SR MRI [facility] Implantable Pulse Generator Serial Number [id number] [facility] Type Interrogation Session In Clinic [facility] Clinic Name [facility] Implantable Pulse Generator Type Pacemaker [facility] Implantable Pulse Generator Implant Date 20171009 [facility] Implantable Lead Basting Puller Medtronic [facility] Implantable Lead Model [id number] Attain Ability MRI SureScan [facility] Implantable Lead Serial Number [id number] [facility] Implantable Lead Implant Date 20171009 [facility] Implantable Lead Polarity Type Bipolar Lead [facility] Implantable Lead Location Detail 1 UNKNOWN [facility] Implantable Lead Special Function Lead length: 88 cm [facility] Implantable Lead Location Left Ventricle [facility] Cholo Setting Mode (NBG Code) VVIR [facility] Cholo Setting Lower Rate Limit 60 {beats}/ min [facility] Cholo Setting Maximum Sensor Rate 130 {beats}/ min [facility] Lead Channel Setting Sensing Polarity Bipolar [facility] Lead Channel Setting Sensing Anode Location Right Ventricle [facility] Lead Channel Setting Sensing Anode Terminal Ring [facility] Lead Channel Setting Sensing Cathode Location Right Ventricle [facility] Lead Channel Setting Sensing Cathode Terminal Tip [facility] Lead Channel Setting Sensing Sensitivity 0.9 mV [facility] Lead Channel Setting Sensing Adaptation Mode Adaptive [facility] Lead Channel Setting Pacing Polarity Bipolar [facility] Lead Channel Setting Pacing Anode Location Right Ventricle [facility] Lead Channel Setting Pacing Anode Terminal Ring [facility] Lead Channel Setting Sensing Cathode Location Right Ventricle [facility] Lead Channel Setting Sensing Cathode Terminal Tip [facility] Lead Channel Setting Pacing Pulse Width 0.4 ms [facility] Lead Channel Setting Pacing Amplitude 2.5 V [facility] Lead Channel Setting Pacing Capture Mode Adaptive [facility] Zone Setting Type Category VF [facility] Zone Setting Type Category [facility] Zone Setting Type Category VT [facility] Zone Setting Type Category VT [facility] Zone Setting Detection Interval 360 ms [facility] Zone Setting Type Category ATRIAL_FIBRILLATI ON [facility] Zone Setting Type Category AT/AF [facility] Lead Channel Impedance Value 703 ohm [facility] Lead Channel Impedance Value 361 ohm [facility] Lead Channel Sensing Intrinsic Amplitude 16.4 mV [facility] Lead Channel Pacing Threshold Amplitude 1.25 V [facility] Lead Channel Pacing Threshold Pulse Width 0.4 ms [facility] Battery Date Time of Measurements [facility] Battery MAINTENANCE REPRESENTATIVE Trigger 2.625 [facility] Battery Remaining Longevity 99 mo [facility] Battery Voltage 3.00 V [facility] Cholo Statistic Date Time Start [id number] [facility] Cholo Statistic Date Time End [facility] Cholo Statistic RV Percent Paced 90.99 % [facility] Episode Statistic Recent Count 3 [facility] Episode Statistic Type Category [place] [facility] Episode Statistic Recent Count 0 [facility] Episode Statistic Type Category VT [facility] Episode Statistic Recent Date Time Start [id number] [facility] Episode Statistic Recent Date Time End [facility] Episode Statistic Recent Date Time Start [id number] [facility] Episode Statistic Recent Date Time End F[facility] Episode Statistic Total Count 3 [facility] Episode Statistic Type Category VT [facility] Episode Statistic Total Count 0 [facility] Episode Statistic Type Category VT [facility] Episode Statistic Total Date Time Start [id number] [facility] Episode Statistic Total Date Time End [facility] Episode Statistic Total Date Time Start [facility] Episode Statistic Total Date Time End [facility] Anatomical Region Laterality Modality Other 04/10/2023 8:09 AM CDT Narrative 04/11/2023 2:22 PM CDT PURPOSE OF VISIT: ??Patient seen for routine 5-year post implant device check. PRESENTING RHYTHM: ??V-pacing at 60 bpm. UNDERLYING RHYTHM: ??Sinus bradycardia at 42 bpm. VENTRICULAR ARRHYTHMIAS: ??Since 12/26/22 none. ?PVC Danielson: Since 04/18/18 PVc Runs (2-4 beats) count was 0.3 per hour. PVC Singles count was 7.4 per hour. BATTERY LONGEVITY: ??Expected battery longevity trends reviewed and are stable and consistent with device settings and use. SUMMARY: ??All device function appears normal. The left pectoral incision is well healed. PROGRAMMING CHANGES: ??Based on the histograms and patient reporting to be short of breath climbing the stairs RR was adjusted. ADL respond and Exertion Response was programmed to 4. Since patient was seen in pre-op we were not able to test new settings, however patient has appointment on 05/01/23 and he will let Device clinic know if further adjustments are needed at that time. EDUCATION: Patient is ready to learn with no apparent learning barriers. ?? I explained the interrogation findings and follow-up plan; patient asked appropriate questions and expressed understanding. FOLLOW UP LOCATION STATUS: [facility] (A). NEXT FOLLOW UP: Next routine follow-up will be via [facility], as previously scheduled. DEVICE RN: Sofiya chisholm. Provider statement: This patient underwent device interrogation. I agree that the device interrogation was medically indicated to provide appropriate care and continue routine device interrogations as indicated. Mike Brewer M.D., Ph.D. CV IMPLANTAB LE CARDIAC DEVICE documented in this encounter Visit Diagnoses Diagnosis Encounter For Checking And Testing Of Cardiac Pacemaker Pulse Generator Battery- Primary Hypertension And Chronic Kidney Disease Stage 4 (HCC) Chronic Systolic (Congestive) Heart Failure (HCC) Endocarditis Hypertension And Chronic Kidney Disease Stage 4 (HCC) Chronic Systolic (Congestive) Heart Failure (HCC) documented in this encounter Admitting Diagnoses Diagnosis Hypertension And Chronic Kidney Disease Stage 4 (HCC) Chronic Systolic (Congestive) Heart Failure (HCC) documented in this encounter Administered Medications Inactive Administered Medications - up to 3 most recent administrations Medication Order MAR Action Action Date Dose Rate Site chlorhexidine 0.12 % mouthwash 15 mL (PERIDEX) 15 mL, swish & spit, Once as needed, Chlorhexidine mouthwash (Peridex) should be given if patient did not complete oral care, if completion is greater than 4 hours prior to surgery or procedure start time and they do not have the opportunity to brush their teeth now (or at this time)., Starting on 04/10/23 at 0615, For 1 dose, Pre-Op, Instruct patient to swish entire content of Chlorhexidine 0.12% mouthwash (PERIDEX) 15 mL cup for 30 seconds, then spit, swish & spit. If patient is at risk for aspiration, apply Chlorhexidine 0.12% mouthwash to a swab and gently swab the patient's teeth and gums. Ensure swab is not oversaturated. metoprolol tablet 12.5 mg (LOPRESSOR) 12.5 mg, oral, Once as needed, if patient did not take their last scheduled dose of beta magdiel prior to arrival, Starting on Mon04/10/23 at 0615, For 1 dose, Pre-Op, Do not give if patient does not take scheduled beta blockers, if patient is receiving intravenous vasopressors or inotropes, if heart rate is less than 50 beats per minute, if systolic blood pressure is less than 90 mmHg or if diastolic blood pressure is less than 40 mmHg, or if patient has an allergy to metoprolol. Given 04/10/2023 6:48 AM CDT 12.5 mg oxyCODONE IR tablet 10 mg (ROXICODONE) 10 mg, oral, Every 4 hours PRN, severe pain or score 7-10 of 10, Starting on Mon04/10/23 at 0941, Administer if pain is unrelieved by acetaminophen. Do not give more than 10 mg of oxycodone in 4 hours. Begin oral narcotics ONLY when tolerating oral diet. oxyCODONE IR tablet 5 mg (ROXICODONE) 5 mg, oral, Every 4 hours PRN, moderate pain or score 4-6 of 10, Starting on Mon04/10/23 at 0941, Administer if pain is unrelieved by acetaminophen. May repeat dose once after 1 hour for persistent pain not to exceed 10 mg in 4 hours. Begin oral narcotics ONLY when tolerating oral diet. sodium chloride 0.9 % injection 10 mL 10 mL, intravenous, As needed, line care, Starting on Mon04/10/23 at 0615, Pre-Op, Peripheral Intravenous Catheter and Rapid Infusion Catheter, prior to blood sampling, post blood transfusion or post blood sampling sodium chloride 0.9 % injection 3 mL 3 mL, intravenous, As needed, line care, Starting on Mon04/10/23 at 0615, Pre-Op, Prior to and following infusion and between multiple consecutive infusions: sodium chloride 0.9 % injection sodium chloride 0.9 % injection 3 mL 3 mL, intravenous, Every 12 hours scheduled, First dose on Mon04/10/23 at 0900, Pre-Op, Peripheral Intravenous Catheter and Rapid Infusion Catheter, when no infusion to maintain patency documented in this encounter Active and Recently Administered Medications Times are shown in CDT. Scheduled Medication Order 04/08/2023 04/09/2023 04/10/2023 acetaminophen tablet 1,000 mg (TYLENOL) 1,000 mg, oral, 4 times daily, First dose on Mon04/10/23 at 1200 ceFAZolin injection 2,000 mg (ANCEF) (COMPLETED) 2,000 mg (rounded from 1,780 mg = 25 mg/kg ? 71.2 kg), intravenous, Once, On Mon04/10/23 at 0730, For 1 dose, Intra-Op, Preoperatively within 1 hour prior to surgical incision If needed, reconstitute vial per package insert instructions. See IVAG for administration guidelines., Drug Monitoring Program: Pharmacist to adjust medication dosing based on indication and drug clearance factors., Indications: Prophylaxis, surgical 0843 (Given - Provid er: Katy Miles APRN, SOPHIE) sodium chloride 0.9 % injection 3 mL 3 mL, intravenous, Every 12 hours scheduled, First dose on Mon04/10/23 at 0900, Pre-Op, Peripheral Intravenous Catheter and Rapid Infusion Catheter, when no infusion to maintain patency 0900 (Due) PRN Medication Order 04/08/2023 04/09/2023 04/10/2023 chlorhexidine 0.12 % mouthwash 15 mL (PERIDEX) 15 mL, swish & spit, Once as needed, Chlorhexidine mouthwash (Peridex) should be given if patient did not complete oral care, if completion is greater than 4 hours prior to surgery or procedure start time and they do not have the opportunity to brush their teeth now (or at this time)., Starting on Mon04/10/23 at 0615, For 1 dose, Pre-Op, Instruct patient to swish entire content of Chlorhexidine 0.12% mouthwash (PERIDEX) 15 mL cup for 30 seconds, then spit, swish & spit. If patient is at risk for aspiration, apply Chlorhexidine 0.12% mouthwash to a swab and gently swab the patient's teeth and gums. Ensure swab is not oversaturated. dexAMETHasone injection 4 mg (DECADRON) 4 mg, intravenous, Once as needed, nausea, vomiting, Starting on Mon04/10/23 at 0941, For 1 dose, Give only if NOT given during the pre or intraoperative period. If ondansetron ordered, give dexamethasone with first dose of ondansetron. metoprolol tablet 12.5 mg (LOPRESSOR) (COMPLETED) 12.5 mg, oral, Once as needed, if patient did not take their last scheduled dose of beta magdiel prior to arrival, Starting on Mon04/10/23 at 0615, For 1 dose, Pre-Op, Do not give if patient does not take scheduled beta blockers, if patient is receiving intravenous vasopressors or inotropes, if heart rate is less than 50 beats per minute, if systolic blood pressure is less than 90 mmHg or if diastolic blood pressure is less than 40 mmHg, or if patient has an allergy to metoprolol. 0648 (Given - Provid er: Judith Martinez R.N.) naloxone injection 0.2 mg (NARCAN) 0.2 mg, intravenous, As needed, respiratory depression, Starting on Mon04/10/23 at 0834, For RASS Score -4 or less, respiratory rate of less than 8 breaths/min. Notify provider/service and rapid response team (if available at institution). oxyCODONE IR tablet 10 mg (ROXICODONE)(Linked Group 1) 10 mg, oral, Every 4 hours PRN, severe pain or score 7-10 of 10, Starting on Mon04/10/23 at 0941, Administer if pain is unrelieved by acetaminophen. Do not give more than 10 mg of oxycodone in 4 hours. Begin oral narcotics ONLY when tolerating oral diet. oxyCODONE IR tablet 5 mg (ROXICODONE)(Linked Group 1) 5 mg, oral, Every 4 hours PRN, moderate pain or score 4-6 of 10, Starting on Mon04/10/23 at 0941, Administer if pain is unrelieved by acetaminophen. May repeat dose once after 1 hour for persistent pain not to exceed 10 mg in 4 hours. Begin oral narcotics ONLY when tolerating oral diet. prochlorperazine injection 5 mg (COMPAZINE) 5 mg, intravenous, Every 6 hours PRN, nausea, vomiting, Starting on Mon04/10/23 at 0941, For 48 hours, RASS must be -2 or higher to administer. Reassess for nausea/vomiting after at least 10 minutes. If nausea or vomiting persists administer next ordered antiemetic medications (order for antiemetic medication administration ondansetron then haloperidol then prochlorperazine) sodium chloride 0.9 % injection 10 mL 10 mL, intravenous, As needed, line care, Starting on Mon04/10/23 at 0615, Pre-Op, Peripheral Intravenous Catheter and Rapid Infusion Catheter, prior to blood sampling, post blood transfusion or post blood sampling sodium chloride 0.9 % injection 3 mL 3 mL, intravenous, As needed, line care, Starting on Mon04/10/23 at 0615, Pre-Op, Prior to and following infusion and between multiple consecutive infusions: sodium chloride 0.9 % injection Linked Groups Order Group 1: oxyCODONE IR tablet 5 mg (ROXICODONE)Jump to med 5 mg, oral, Every 4 hours PRN, moderate pain or score 4-6 of 10, Starting on Mon04/10/23 at 0941, Administer if pain is unrelieved by acetaminophen. May repeat dose once after 1 hour for persistent pain not to exceed 10 mg in 4 hours. Begin oral narcotics ONLY when tolerating oral diet. Or oxyCODONE IR tablet 10 mg (ROXICODONE)Jump to med 10 mg, oral, Every 4 hours PRN, severe pain or score 7-10 of 10, Starting on Mon04/10/23 at 0941, Administer if pain is unrelieved by acetaminophen. Do not give more than 10 mg of oxycodone in 4 hours. Begin oral narcotics ONLY when tolerating oral diet. documented in this encounter Additional Health Concerns Assessment Noted Time PHQ-9 Depression Total Score: 5 03/06/20 18 6:00 PM CDT documented as of this encounter Care Teams Fleet Mechanic Relationship Specialty Start Date End Date Elsewhere, Pcp PCP - General Internal Medicine 09/13/22 documented as of this encounter
--- OUTSIDE RECORDS SUMMARY | 2023-09-25 09:01 | XMS_ITS | Encounter Summary ---
Author Name Unknown Organization [facility] Address [address] [place] [address] Care Team Providers Care Otr Van Cdl Truck Driver Name Role Phone Elsewhere, Pcp Primary Care Provider Unavailabl e Encounter Details Date Type Department Care Team (Late st Contact Info) Description 04/04/2023 Documentation Division of Nephrology and Hypertension in [place], [place] [address] [place] [phone] Eddie Sheffield Jr., D.O. [address] [place] [address] Social History Tobacco Use Types Packs/Day Years [...] often do you attend chur ch or voodoo services? 1 to 4 times per year 08/07/2022 Do you belong to any clubs o r organizations such as cheondoism groups, unions, fraternal or athletic groups, or [...] Answer Date Recorded PHQ-2 Score 5 01/25/2019 [facility] - Occupational Stress Questionnaire Answer Date [...] place to sleep or slept in a fpc (including now)? No 08/07/2022 Nutrition Answer Date [...] as of this encounter Progress Notes * Eddie Sheffield Jr., D.O. - 04/04/2023 5:56 PM CDT DONALD [facility] note Was asked by our vascular surgical teammates to provide preoperative medical clearance. He is 82 years of age, has a mechanical aortic valve, in his on oral anticoagulation on the background of atrial fibrillation. His blood pressure is well controlled, he is able to ascend 2 flights of stairs without pausing, exercises regularly, and is at very low risk. It has been a year since his last ECG and chest x-ray I will orchestrate these to be done in [facility]. Assuming these are as per prior, we would approve him to move ahead with surgery. Additionally however, I think it is important to recognize he is on oral anticoagulation and would need to pause his oral anticoagulation 2 nights, taking his last dose of warfarin on the ., and resuming the night after the surgery. I understand this is a very low risk surgery. It will be done with regional block. He is optimized for anesthesia. documented in this encounter Plan of Treatment Upcoming Encounters Date Type Department Care Team (Late st Contact Info) Description 09/25/2023 3:00 PM DOCKET SPECIALIST External Outreach Division of Nephrology and Hypertension in [address] [phone] Eddie Sheffield Jr., D.O. [address] [place] [phone] Arrived 12/04/2023 10:30 AM CDT Clinical Communication Virtual Review in [place], [place] 200 [place] [address] 12/06/2023 7:40 AM CDT Lab Department of Laboratory Medicine and Pathology, [facility] in [address] [address] Jemal Murrell M.B.B.S., MYudy [address] [place] [phone] 12/06/2023 8:00 AM CDT Appointment [facility] in [address] [phone] Jemal Murrell M.B.B.S., MYudy [address] [place] [phone] 12/06/2023 9:20 AM CDT Appointment [facility], [facility] in [place], [place] [address] [place] [address] Jemal Murrell M.B.B.S., MYudy [address] [place] [phone] 12/06/2023 10:00 AM CDT Appointment Department of Radiology, [facility] in [place], [place] [address] [place] [address] Jemal Murrell M.B.B.S., MYudy [address] [place] [phone] 12/06/2023 1:30 PM CDT Office Visit Division of Endocrinology in [place], [place] [address] [place] [phone] Zara Garvey APRN, C.N.P., D.N.P. [address] [place] [phone] documented as of this encounter Visit Diagnoses Not on filedocumented in this encounter Additional Health Concerns Assessment Noted Time PHQ-9 Depression Total Score: 5 03/06/20 18 6:00 PM CDT documented as of this encounter Care Teams Otr Van Cdl Truck Driver Relationship Specialty Start Date End Date Elsewhere, Pcp PCP - General Internal Medicine 09/13/22 documented as of this encounter
--- OUTSIDE RECORDS SUMMARY | 2023-09-25 09:01 | XMS_ITS | Encounter Summary ---
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) Anticoagulant Therapy Chronic Systolic (Congestive) Heart Failure (HCC) Procedures US Hemodialysis Fistula-Graft Right Eddie Sheffield Jr., D.ODavis 200 [place] [address] [facility] Referral ID Status Reason Start Date Expiration Date Visits Re quested Visits Authorized [id number] Closed 04/03/2023 04/02/2024 1 1 Reason for Visit * Outpatient (Routine) - Closed Specialty Diagnoses / Procedures Referred By Jessica patel Referred To Contact Diagnoses Hypertension And Chronic Kidney Disease Stage 4 (HCC) 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) Anticoagulant Therapy Chronic Systolic (Congestive) Heart Failure (HCC) Procedures US Hemodialysis Fistula-Graft Right Eddie Sheffield Jr., D.ODavis 200 [place] [address] [facility] Referral ID Status Reason Start Date Expiration Date Visits Re quested Visits Authorized [id number] Closed 04/03/2023 04/02/2024 1 1 Encounter Details Date Type Department Care Team (Latest Contact Info) Description 04/04/2023 9:41 AM CDT - 04/04/2023 11:59 PM CDT Hospital Encounter Department of Radiology, [facility], in [place], [place] [address] [place] [address] Eddie Sheffield Jr., D.O. [address] [place] [address] Hypertension And Chronic Kidney Disease Stage 4 (HCC); Malignant Neoplasm Of Thyroid Papillary (HCC); Hyperparathyroidism Renal Secondary (HCC); Anticoagulant Therapy; Chronic Systolic (Congestive) Heart Failure (HCC) Discharge Disposition: Home or Self Care [...] How often do you attend chur or pentecostalism services? 1 to 4 times per year 08/07/2022 Do you belong to any clubs o r organizations such as anabaptist groups, unions, fraternal or athletic groups, or [...] Answer Date Recorded PHQ-2 Score 5 01/25/2019 [facility] - Occupational Stress Questionnaire Answer Date Recorded [...] place to sleep or slept in a intermediate (including now)? No 08/07/2022 Nutrition Answer Date [...] 1 tablet by mouth daily. Centrum (per financial economist) 0 10/09/2017 omeprazole (PriLOSEC) [address] [...] st Contact Info) Description 09/25/2023 3:00 PM EARTH MOVING TECHNICIAN External Outreach Division of Nephrology and Hypertension in [place], [place] [address] [place] [phone] Eddie Sheffield Jr., D.O. [address] [place] [phone] Arrived 12/04/2023 10:30 AM CDT Clinical Communication Virtual Review in [place], [place] 200 [place] [address] 12/06/2023 7:40 AM CDT Lab Department of Laboratory Medicine and Pathology, [facility], in [place], [place] [address] [place] [phone] Jemal Murrell M.B.B.S., MMary. [address] [place] [phone] 12/06/2023 8:00 AM CDT Appointment Department of Radiology, [facility], in [place], [place] [address] [place] [address] Jemal Murrell M.B.B.S., M.D. [address] [place] [phone] 12/06/2023 9:20 AM CDT Appointment Department of Radiology, [facility] in [place], [place] [address] [place] [address] Jemal Murrell M.B.B.S., M.D. [address] [place] [phone] 12/06/2023 10:00 AM CDT Appointment Department of Radiology, [facility] in [place], [place] [address] [place] [address] Jemal Murrell M.B.B.S., Alek [address] [place] [phone] 12/06/2023 1:30 PM CDT Office Visit Division of Endocrinology in [place], [place] [address] [place] [phone] Zara Garvey APRN, C.N.P., D.N.P. [address] [place] [phone] documented as of this encounter Procedures Procedure Name Priority Date/Time Associated Diagnosis Comments US HEMODIALYSIS FISTULA-GRAFT RIGHT RAD - Routine (most inpatients and all outpatients) 04/04/2023 10:58 AM CDT Hypertension And Chronic Kidney Disease Stage 4 (HCC) Malignant Neoplasm Of Thyroid Papillary (HCC) Hyperparathyroidi sm Renal Secondary (HCC) Anticoagulant Therapy Chronic Systolic (Congestive) Heart Failure (HCC) documented in this encounter Results * US Hemodialysis Fistula-Graft Right (04/04/2023 10:58 AM CDT) Anatomical Region Laterality Modality Body, Ultrasound RST LOS, Ul trasound ARZ LOS, Ultrasound FLA LOS, Procedural Right Ultrasound 04/04/2023 11:0 1 AM CDT Impressions 04/04/2023 11:09 AM CDT Right radiocephalic arteriovenous fistula patent but with occlusion of the cephalic vein in the upper arm and outflow via the basilic vein normal flow volume. Narrative 04/04/2023 11:09 AM CDT EXAM: US HEMODIALYSIS FISTULA-GRAFT RIGHT Exam performed with color and spectral Doppler analysis. COMPARISON: 03/23/2017 FINDINGS: Surgical date: Unknown. Patient is asking for fistula to be ligated. Location: Right Radial artery to Cephalic vein fistula. Anastomosis: No evidence of significant stenosis. [place] artery proximal to AVF: Normal [place] artery distal to AVF: Retrograde Outflow vein: Cephalic vein in the forearm is patent. Cephalic vein in the upper arm has a portion with wall thickening and then chronic occlusive post-thrombotic change and the outflow travels through the antecubital fossa into the patent basilic system. Cephalic vein is patent again near the shoulder. Central veins: Patent Branches: Yes ??1 Mean average flow volume: 825mL/min. This was obtained at the cephalic vein at the level of the elbow prior to the confluence with the basilic vein as the cephalic vein in the upper arm is occluded. <500 ml/min = low flow 500-800 ml/min = borderline >800 ml/min = normal Procedure Note Sara Russell M.D. - 04/04/2023 EXAM: US HEMODIALYSIS FISTULA-GRAFT RIGHT Exam performed with color and spectral Doppler analysis. COMPARISON: 03/23/2017 FINDINGS: Surgical date: Unknown. Patient is asking for fistula to be ligated. Location: Right Radial artery to Cephalic vein fistula. Anastomosis: No evidence of significant stenosis. [place] artery proximal to AVF: Normal [place] artery distal to AVF: Retrograde Outflow vein: Cephalic vein in the forearm is patent. Cephalic vein in theupper arm has a portion with wall thickening and then chronic occlusive post-thrombotic change andthe outflow travels through the antecubital fossa into the patent basilic system. Cephalicvein is patent again near the shoulder. Central veins: Patent Branches: Yes 1 Mean average flow volume: 825mL/min. This was obtained at the cephalicvein at the level of the elbow prior to the confluence with the basilic vein as the cephalic veinin the upper arm is occluded. <500 ml/min = low flow 500-800 ml/min = borderline >800 ml/min = normal IMPRESSION: Right radiocephalic arteriovenous fistula patent but with occlusion of thecephalic vein in the upper arm and outflow via the basilic vein normal flow volume. 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
--- OUTSIDE RECORDS SUMMARY | 2023-09-25 09:01 | XMS_ITS | Encounter Summary ---
Author Name Unknown Organization [facility] Address [address] [place] [address] Care Team Providers Care Sweatband Drummer Name Role Phone Elsewhere, Pcp Primary Care Provider Unavailabl e Reason for Visit * Auth/Cert (Routine) Specialty Diagnoses / Procedures Referred By Jessica t Referred To Contact Diagnoses Hypertension And Chronic Kidney Disease Stage 4 (HCC) Chronic Systolic (Congestive) Heart Failure (HCC) Hypertension And Chronic Kidney Disease Stage 4 (HCC) [I12.9, N18.4] Chronic Systolic (Congestive) Heart Failure (HCC) [I50.22] Procedures AK LIG/BANDING ANGIOACCESS AVF Radiocephalic Arteriovenous Fistula Ligation Referral ID Status Reason Start Date Expiration Date Visits Re quested Visits Authorized [id number] 1 1 Encounter Details Date Type Department Care Team (Latest Contact Info) Description 04/10/2023 5:56 AM CDT - 04/10/2023 10:32 AM CDT Hospital Encounter [facility] [address] [place] [address] Shannen Bailon M.D. [address] [place] [address] Encounter For Checking And Testing Of Cardiac Pacemaker Pulse Generator Battery (Primary Dx) Discharge Disposition: Home or Self Care Social [...] week 08/07/2022 How often do you attend [facility] or baptist services? 1 to 4 times per year 08/07/2022 Do you belong to any clubs o r organizations such as restorationist groups, unions, fraternal or athletic groups, or [...] Answer Date Recorded PHQ-2 Score 5 01/25/2019 [facility] - Occupational Stress [...] 1 tablet by mouth daily. Centrum (per inventory specialist) 0 10/09/2017 omeprazole (PriLOSEC) 20 mg capsuleIndications:Ga [...] this encounter Progress Notes * Alison Santana APRN C.N.PDavis, M.S.N. - 04/10/2023 10:16 AM CDT CHIEF [...] documented in this encounter OR Notes * Op Note - Shannen Bailon M.D. - 04/10/2023 8:46 AM CDT Pre-op Diagnosis Hypertension And Chronic Kidney Disease Stage 4 (HCC),Chronic Systolic (Congestive) Heart Failure (HCC) Post-op Diagnosis Hypertension And Chronic Kidney Disease Stage 4 (HCC),Chronic Systolic (Congestive) Heart Failure (HCC) Procedure performed Ligation of right radiocephalic fistula A assistant professor of radiology actively participated and was necessary for one [...] st Contact Info) Description 09/25/2023 3:00 PM METAL PICKLING EQUIPMENT OPERATOR External Outreach Division of Nephrology and Hypertension in [address] [phone] Eddie Sheffield Jr., D.O. [address] [place] [phone] Arrived 12/04/2023 10:30 AM CDT Clinical Communication Virtual Review in [place], [place] 200 [place] [address] 12/06/2023 7:40 AM CDT Lab Department of Laboratory Medicine and Pathology, [facility], in [address] [address] Jemal Murrell M.B.B.S., M.D. [address] [place] [phone] 12/06/2023 8:00 AM CDT Appointment Department of Radiology, [facility], in [place], [place] [address] [place] [address] Jemal Murrell M.B.B.S., Alek [address] [place] [phone] 12/06/2023 9:20 AM CDT Appointment Department of Radiology, [facility] in [place], [place] [address] [place] [phone] Jemal Murrell M.B.B.S., Alek [address] [place] [phone] 12/06/2023 10:00 AM CDT Appointment Department of Radiology, [facility] in [place], [place] [address] [place] [address] Jemal Murrell M.B.B.S., Alek [address] [place] [phone] 12/06/2023 1:30 PM CDT Office Visit Division of Endocrinology in [place], [place] [address] [place] [phone] Zara Garvey APRN, C.N.P., D.N.P. [address] [place] [phone] documented as of this encounter Procedures Procedure [...] 8:09 AM CDT) Date Time Interrogation Session [id number] [facility] Implantable Pulse Generator Fisher Gill Net Medtronic [facility] Implantable Pulse Generator Model [id number] Preeti XT SR MRI [facility] Implantable Pulse Generator Serial Number [id number] [facility] Type Interrogation Session In Clinic [facility] Clinic Name [facility] Implantable Pulse Generator Type Pacemaker [facility] Implantable Pulse Generator Implant Date 20171009 [facility] Implantable Lead Fisher Gill Net [employer] [facility] Implantable Lead Model 4196 Attain Ability MRI SureScan [facility] Implantable Lead Serial Number [id number] [facility] Implantable Lead Implant Date 20171009 [facility] Implantable Lead Polarity Type Bipolar Lead [facility] Implantable Lead Location Detail 1 UNKNOWN [facility] Implantable Lead Special Function Lead length: 88 cm [facility] Implantable Lead Location Left Ventricle [facility] Cholo Setting Mode (NBG Code) VVIR [facility] Cholo Setting Lower Rate Limit 60 {beats}/ min [facility] Cholo Setting Maximum Sensor Rate 130 {beats}/ min [facility] Lead Channel Setting Sensing Polarity Bipolar [facility] Lead Channel Setting Sensing Anode Location Right Ventricle [facility] Lead Channel Setting Sensing Anode Terminal Ring [facility] Lead Channel Setting Sensing Cathode Location Right Ventricle [facility] Lead Channel Setting Sensing Cathode Terminal Tip [facility] Lead Channel Setting Sensing Sensitivity 0.9 mV [facility] Lead Channel Setting Sensing Adaptation Mode Adaptive [facility] Lead Channel Setting Pacing Polarity Bipolar [facility] Lead Channel Setting Pacing Anode Location Right Ventricle [facility] Lead Channel Setting Pacing Anode Terminal Ring [facility] Lead Channel Setting Sensing Cathode Location Right Ventricle [facility] Lead Channel Setting Sensing Cathode Terminal Tip [facility] Lead Channel Setting Pacing Pulse Width 0.4 ms [facility] Lead Channel Setting Pacing Amplitude 2.5 V [facility] Lead Channel Setting Pacing Capture Mode Adaptive [facility] Zone Setting Type Category VF [facility] Zone Setting Type Category VT [facility] Zone Setting Type Category VT [facility] Zone Setting Type Category VT [facility] Zone Setting Detection Interval 360 ms [facility] Zone Setting Type Category ATRIAL_FIBRILLATI ON [facility] Zone Setting Type Category AT/AF [facility] Lead Channel Impedance Value 703 ohm [facility] Lead Channel Impedance Value 361 ohm [facility] Lead Channel Sensing Intrinsic Amplitude 16.4 mV [facility] Lead Channel Pacing Threshold Amplitude 1.25 V [facility] Lead Channel Pacing Threshold Pulse Width 0.4 ms [facility] Battery Date Time of Measurements [facility] Battery AGRICULTURE INTERN Trigger 2.625 [facility] Battery Remaining Longevity 99 mo [facility] Battery Voltage 3.00 V [facility] Cholo Statistic Date Time Start [id number] [facility] Cholo Statistic Date Time End [facility] Cholo Statistic RV Percent Paced 90.99 % [facility] Episode Statistic Recent Count 3 [facility] Episode Statistic Type Category VT [facility] Episode Statistic Recent Count 0 [facility] Episode Statistic Type Category VT [facility] Episode Statistic Recent Date Time Start [id number] [facility] Episode Statistic Recent Date Time End [facility] Episode Statistic Recent Date Time Start [id number] [facility] Episode Statistic Recent Date Time End F[facility] Episode Statistic Total Count 3 [facility] Episode Statistic Type Category VT [facility] Episode Statistic Total Count 0 [facility] Episode Statistic Type Category VT [facility] Episode Statistic Total Date Time Start [id number] [facility] Episode Statistic Total Date Time End [facility] Episode Statistic Total Date Time Start [id number] [facility] Episode Statistic Total Date Time End [facility] Anatomical Region Laterality Modality Other 04/10/2023 8:09 AM CDT Narrative 04/11/2023 2:22 PM CDT PURPOSE OF VISIT: ??Patient seen for routine 5-year post implant device check. PRESENTING RHYTHM: ??V-pacing at 60 bpm. UNDERLYING RHYTHM: ??Sinus bradycardia at 42 bpm. VENTRICULAR ARRHYTHMIAS: ??Since 12/26/22 none. ?PVC [place]: Since 04/18/18 PVc Runs (2-4 beats) count [...] and expressed understanding. FOLLOW UP LOCATION STATUS: [facility] (A). NEXT FOLLOW UP: Next routine follow-up [...] Chronic Systolic (Congestive) Heart Failure (HCC) Endocarditis documented in this encounter Admitting Diagnoses Diagnosis [...] documented as of this encounter Care Teams Sweatband Drummer Relationship Specialty Start Date End Date Elsewhere, Pcp PCP - General Internal Medicine 09/13/22 documented as of this encounter
--- OUTSIDE RECORDS SUMMARY | 2023-09-25 09:01 | XMS_ITS | Encounter Summary ---
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 [address] [place] [phone] [facility] Referral ID Status Reason Start Date Expiration Date Visits Re quested Visits Authorized [id number] Closed 04/03/2023 04/02/2024 1 1 Encounter Details Date Type Department Care Team (Latest Contact Info) Description 04/04/2023 1:20 PM CDT Comprehensive Visit Division of Vascular and Endovascular Surgery in [place], [place] 200 [place] [phone] Eddie Sheffield Jr., ShahzadO. [address] [place] [phone] Shannen Bailon M.D. [address] [place] [phone] Hypertension And Chronic Kidney Disease Stage 4 (HCC); Malignant Neoplasm Of Thyroid Papillary (HCC); Hyperparathyroidism Renal Secondary (HCC); Anticoagulant Therapy; Chronic Systolic (Congestive) Heart Failure (HCC) Social History Tobacco Use Types Packs/Day [...] How often do you attend chur or yazdanism services? 1 to 4 times per year 08/07/2022 Do you belong to any clubs o r organizations such as hoahaoism groups, unions, fraternal or athletic groups, or [...] Answer Date Recorded PHQ-2 Score 5 01/25/2019 [facility] - Occupational Stress Questionnaire Answer [...] PM CDT documented as of this encounter H&P Notes * Shannen Bailon M.D. - 04/04/2023 1:20 PM CDT SUBJECTIVE CHIEF COMPLAINT / REASON FOR VISIT Jose Kearney is a 82 y.o. male who presents for evaluation of possible right radiocephalic fistula ligation. HISTORY OF PRESENT ILLNESS Jose Kearney is an 82-year-old man who presents to clinic for consideration of possible right arm fistula ligation. This fistula was created in 2018 and the patient has never used it for dialysis. Over that time period he temporarily require dialysis via a tunneled dialysis line. This wasin the setting of having infective endocarditis, septic shock, and acute kidney injury. 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 He has stopped this in thepast for procedures without requiring bridging. 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 The patient was seen by his bindery machine tender yesterday, and he believes that his chance of requiring dialysis in the future is less than 10%. The patient remains active around his home and in the community without any chest painor shortness of breath with activity. REVIEW OF SYSTEMS REVIEW OF SYSTEMS As per the HPI. OBJECTIVE PHYSICAL EXAM Constitutional Appearance: Normal appearance. HENT Head: Normocephalic. Mouth/Throat: Mouth: Mucous membranes are moist. Eyes Conjunctiva/sclera: Conjunctivae normal. Cardiovascular Rate and Rhythm: Normal rate. Comments: Right radiocephalic fistula with an anastomosis at the wrist. Palpable right radial pulse. Palpable thrill within the fistula. Pulmonary Effort: Pulmonary effort is normal. No respiratory distress. Musculoskeletal Cervical back: Normal range of motion. Neurological Mental Status: He is alert. ASSESSMENT / PLAN Jose Kearney is an 82-year-old man who presents for evaluation of possible right radiocephalic fistula ligation. I discussed with the patient that I believe he would be a good candidate forthis procedure which could be performed under a right arm block with monitored anesthesia care. At the time of the procedure, I would plan to ligate the fistula via a small incision at the wrist without plans to repair or remove the aneurysmal segment. I discussed with the patient that the aneurysmal segment of his fistula will remain in place but will be soft secondary to the lack of arterial flow. Prior to proceeding with this procedure we will obtain preoperative anesthesia evaluation. We discussed the risks, benefits, and alternatives and the patient has given his consent to proceed. documented in this encounter Miscellaneous Notes * Addendum Note - Florentino Mcdonald RDavisN. - 04/04/2023 1:20 PM CDTAddended by: FLORENTINO MCDONALD on: 04/05/2023 01:04 PM Modules accepted: Orders documented in this encounter Plan of Treatment Upcoming Encounters Date Type Department Care Team (Late st Contact Info) Description 09/25/2023 3:00 PM APPLICATION SUPPORT CONSULTANT External Outreach Division of Nephrology and Hypertension in [place], [place] [address] [place] [phone] Eddie Sheffield Jr., D.O. [address] [place] [phone] Arrived 12/04/2023 10:30 AM CDT Clinical Communication Virtual Review in [place], [place] 200 [place] [address] 12/06/2023 7:40 AM CDT Lab Department of Laboratory Medicine and Pathology, [facility], in [place], [place] [address] [place] [phone] Jemal Murrell M.B.B.S., Alek [address] [place] [phone] 12/06/2023 8:00 AM CDT Appointment Department of Radiology, [facility] in [place], [place] [address] [place] [phone] Jemal Murrell M.B.B.S., Alek [address] [place] [phone] 12/06/2023 9:20 AM CDT Appointment Department of Radiology, [facility] in [place], [place] [address] [place] [phone] Jemal Murrell M.B.B.S., Alek [address] [place] [phone] 12/06/2023 10:00 AM CDT Appointment Department of Radiology, [facility] in [place], [place] [address] [place] [phone] Jemal Murrell M.B.B.S., Alek [address] [place] [phone] 12/06/2023 1:30 PM CDT Office Visit Division of Endocrinology in [place], [place] [address] [place] [phone] aZra Garvey APRN, C.N.P., D.N.P. 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
--- OUTSIDE RECORDS SUMMARY | 2023-09-25 09:01 | XMS_ITS | Encounter Summary ---
Author Name Unknown Organization [facility] Address [address] [place] [address] Care Team Providers Care Digital Marketing Executive Name Role Phone Elsewhere, Pcp Primary Care Provider Unavailabl e Reason for Referral * Outpatient (Routine) - Closed Specialty Diagnoses / Procedures Referred By Jessica patel Referred To Contact Diagnoses Atrial Fibrillation Permanent (HCC) Procedures DX Chest AP or PA and Lateral 2 Views Eddie Sheffield Jr., D.O. 200 [place] [phone] [facility] Region Referral ID Status Reason Start Date Expiration Date Visits Re quested Visits Authorized [id number] Closed 04/04/2023 04/03/2024 1 1 Reason for Visit * Outpatient (Routine) - Closed Specialty Diagnoses / Procedures Referred By Jessica patel Referred To Contact Diagnoses Atrial Fibrillation Permanent (HCC) Procedures DX Chest AP or PA and Lateral 2 Views Eddie Sheffield Jr., D.ODavis 200 [place] [phone] [facility] Referral ID Status Reason Start Date Expiration Date Visits Re quested Visits Authorized [id number] Closed 04/04/2023 04/03/2024 1 1 Encounter Details Date Type Department Care Team (Latest Contact Info) Description 04/07/2023 10:49 AM CDT Hospital Encounter Department of Radiology in [address] [phone] Eddie Sheffield Jr., Kiko.O. 200 [place] [phone] Atrial Fibrillation Permanent (HCC) Discharge Disposition: Home [...] How often do you attend chur or sabianist services? 1 to 4 times per year 08/07/2022 Do you belong to any clubs o r organizations such as religion groups, unions, fraternal or athletic groups, or [...] Answer Date Recorded PHQ-2 Score 5 01/25/2019 [facility] - Occupational Stress Questionnaire Answer [...] 1 tablet by mouth daily. Centrum (per explosives engineer) 0 10/09/2017 omeprazole (PriLOSEC) 20 mg capsuleIndications:Ga [...] st Contact Info) Description 09/25/2023 3:00 PM HARDWOOD SAWYER External Outreach Division of Nephrology and Hypertension in [place], [place] [address] [place] [phone] Eddie Sheffield Jr., D.O. [address] [place] [phone] Arrived 12/04/2023 10:30 AM CDT Clinical Communication Virtual Review in [place], [place] 200 [place] [address] 12/06/2023 7:40 AM CDT Lab Department of Laboratory Medicine and Pathology, [facility] in [place], [place] [address] [place] [phone] Jemal Murrell M.B.B.S., MYudy [address] [place] [phone] 12/06/2023 8:00 AM CDT Appointment Department of Radiology, [facility] in [place], [place] [address] [place] [phone] Jemal Murrell M.B.B.S., MYudy [address] [place] [phone] 12/06/2023 9:20 AM CDT Appointment Department of Radiology, [facility], in [place], [place] [address] [place] [phone] Jemal Murrell M.B.B.S., Alek [address] [place] [phone] 12/06/2023 10:00 AM CDT Appointment Department of Radiology, [facility] in [place], [place] [address] [place] [phone] Jemal Murrell M.B.B.S., Alek [address] [place] [phone] 12/06/2023 1:30 PM CDT Office Visit Division of Endocrinology in [place], [place] [address] [place] [phone] Zara Garvey APRN, C.N.P., D.N.P. [address] [place] [phone] documented as of this encounter Procedures Procedure Name Priority Date/Time Associated Diagnosis Comments DX CHEST AP OR PA AND LATERAL 2 VIEWS RAD - Routine (most inpatients and all outpatients) 04/07/2023 11:16 AM CDT Atrial Fibrillation Permanent (HCC) documented in this encounter Results * DX Chest AP or PA and Lateral 2 Views (04/07/2023 11:16 AM CDT) Anatomical Region Laterality Modality Chest, Thoracic RST LOS, Tho racic ARZ LOS, Thoracic FLA LOS N/A Digital Radiography 04/07/2023 11:1 8 AM CDT Impressions 04/07/2023 11:24 AM CDT No focal consolidation or pleural effusion. Normal heart size. Left chest wall cardiac device. Postoperative changes of aortic valve with large ascending thoracic aortic aneurysm. May 03, 2022 comparison. Narrative 04/07/2023 11:24 AM CDT EXAM: DX CHEST AP OR PA AND LATERAL 2 VIEWS Procedure Note Heath Cramer M.D. - 04/07/2023 EXAM: DX CHEST AP OR PA AND LATERAL 2 VIEWS IMPRESSION: No focal consolidation or pleural effusion. Normal heart size. Left chestwall cardiac device. Postoperative changes of aortic valve with large ascending thoracic aorticaneurysm. May 03, 2022 comparison. Eddie Sheffield Jr., D.O. IMG DIAGNOST IC IMAGING PROCEDURES documented in this encounter Visit Diagnoses Diagnosis Atrial Fibrillation Permanent (HCC) documented in this encounter Additional Health Concerns Assessment Noted Time PHQ-9 Depression Total Score: 5 03/06/20 18 6:00 PM CDT documented as of this encounter Care Teams Digital Marketing Executive Relationship Specialty Start Date End Date Elsewhere, Pcp PCP - General Internal Medicine 09/13/22 documented as of this encounter
--- OUTSIDE RECORDS SUMMARY | 2023-09-25 09:01 | XMS_ITS | Encounter Summary ---
Author Name Unknown Organization [facility] Address [address] [place] [address] Care Team Providers Care Qm Nurse Name Role Phone Elsewhere, Pcp Primary Care Provider Unavailabl e Reason for Visit * Outpatient (Routine) - Closed Specialty Diagnoses / Procedures Referred By Jessica t Referred To Contact Diagnoses Atrial Fibrillation Permanent (HCC) Procedures ECG 12 Lead Eddie Sheffield Jr., D.ODavis [address] [place] [phone] [facility] Region Referral ID Status Reason Start Date Expiration Date Visits Re quested Visits Authorized [id number] Closed 04/04/2023 04/03/2024 1 1 Encounter Details Date Type Department Care Team (Latest Contact Info) Description 04/07/2023 11:00 AM CDT - 04/07/2023 11:59 PM CDT Hospital Encounter Department of Radiology in [address] [phone] Eddie Sheffield Jr., D.O. [address] [place] [phone] Discharge Disposition: Home or Self Care Social [...] week 08/07/2022 How often do you attend [facility] or yazidism services? 1 to 4 times per year 08/07/2022 Do you belong to any clubs o r organizations such as faith groups, unions, fraternal or athletic groups, or [...] Answer Date Recorded PHQ-2 Score 5 01/25/2019 [facility] of Occupat ional Health - Occupational Stress [...] place to sleep or slept in a [place] health care facility (including now)? No 08/07/2022 Nutrition Answer Date [...] 1 tablet by mouth daily. Centrum (per rn ccu) 0 10/09/2017 omeprazole (PriLOSEC) [address] [...] st Contact Info) Description 09/25/2023 3:00 PM GRINDER HARDBOARD External Outreach Division of Nephrology and Hypertension in [place], [place] [address] [place] [phone] Eddie Sheffield Jr., Kiko.O. [address] [place] [phone] Arrived 12/04/2023 10:30 AM CDT Clinical Communication Virtual Review in [place], [place] 200 [place] [address] 12/06/2023 7:40 AM CDT Lab Department of Laboratory Medicine and Pathology, [place], [place] [address] [place] [phone] Jemal Murrell M.B.B.S., MYudy [address] [place] [phone] 12/06/2023 8:00 AM CDT Appointment Department of Radiology, [facility] in [place], [place] [address] [place] [phone] Jemal Murrell M.B.B.S., MYudy [address] [place] [phone] 12/06/2023 9:20 AM CDT Appointment Department of Radiology, [facility] in [place], [place] [address] [place] [phone] Jemal Murrell M.B.B.S., Alek [address] [place] [phone] 12/06/2023 10:00 AM CDT Appointment Department of Radiology, [facility], in [place], [place] [address] [place] [phone] Jemal Murrell M.B.B.S., M.D. [address] [place] [phone] 12/06/2023 1:30 PM CDT Office Visit Division of Endocrinology in [place], [place] [address] [place] [phone] Zara Garvey APRN, C.N.PDavis, D.N.P. [address] [place] [phone] documented as of this encounter Results * ECG 12 Lead (04/07/2023 10:59 AM CDT) Ventricular Rate ECG/Min 61 BPM MUSE QRSD Interval 202 ms MUSE QT Interval 496 ms MUSE QTC Interval 499 ms MUSE R [place] 112 degrees MUSE T Wave [place] -49 degrees MUSE 04/07/2023 10:5 9 AM [...] shortened Reviewed by ART Shay Eddie Sheffield Jr. DDavisODavis ECG ORDERABL ES MUSE NA documented in this encounter Visit Diagnoses Not on filedocumented in this encounter Additional Health Concerns Assessment Noted Time PHQ-9 Depression Total Score: 5 03/06/20 18 6:00 PM CDT documented as of this encounter Care Teams Qm Nurse Relationship Specialty Start Date End Date Elsewhere, Pcp PCP - General Internal Medicine 09/13/22 documented as of this encounter
--- OUTSIDE RECORDS SUMMARY | 2023-09-25 09:01 | XMS_ITS | Encounter Summary ---
Author Name Unknown Organization [facility] Address [address] [place] [address] Care Team Providers Care Manager Of Finance Name Role Phone Elsewhere, Pcp Primary Care Provider Unavailabl e Reason for Referral * Outpatient (Routine) - Closed Specialty Diagnoses / Procedures Referred By Contac t Referred To Contact Diagnoses Atrial Fibrillation Permanent (HCC) Procedures DX Chest AP or PA and Lateral 2 Views Eddie Sheffield Jr., D.O. 200 [place] [phone] [facility] Region Referral ID Status Reason Start Date Expiration Date Visits Re quested Visits Authorized [id number] Closed 04/04/2023 04/03/2024 1 1 * Outpatient (Routine) - Closed Specialty Diagnoses / Procedures Referred By Contac t Referred To Contact Diagnoses Atrial Fibrillation Permanent (HCC) Procedures ECG 12 Lead Eddie Sheffield Jr., D.O. 200 [place] [phone] [facility] Referral ID Status Reason Start Date Expiration Date Visits Re quested Visits Authorized [id number] Closed 04/04/2023 04/03/2024 1 1 Encounter Details Date Type Department Care Team (Late st Contact Info) Description 04/04/2023 Orders Only Division of Nephrology and Hypertension in [place], [place] 200 [place] [phone] Eddie Sheffield Jr., Kiko.O. 200 [place] [phone] Atrial Fibrillation Permanent (HCC) (Primary Dx) Social History Tobacco Use Types Packs/Day Years [...] often do you attend chur ch or yazdanism services? 1 to 4 times per year 08/07/2022 Do you belong to any clubs o r organizations such as amish groups, unions, fraternal or athletic groups, or [...] Answer Date Recorded PHQ-2 Score 5 01/25/2019 [facility] [place] of Occupat ional Health - Occupational Stress [...] st Contact Info) Description 09/25/2023 3:00 PM MANAGER OPERATIONS RESEARCH External Outreach Division of Nephrology and Hypertension in [place], [place] [address] [place] [phone] Eddie Sheffield Jr., D.O. [address] [place] [phone] Arrived 12/04/2023 10:30 AM CDT Clinical Communication Virtual Review in [place], [place] 200 [place] [address] 12/06/2023 7:40 AM CDT Lab Department of Laboratory Medicine and Pathology, [facility] in [place], [place] [address] [place] [phone] Jemal Murrell M.B.B.S., M.D. [address] [place] [phone] 12/06/2023 8:00 AM CDT Appointment Department of Radiology, [facility] in [place], [place] [address] [place] [phone] Jemal Murrell M.B.BDavisS., Alek [address] [place] [phone] 12/06/2023 9:20 AM CDT Appointment Department of Radiology, [facility] in [place], [place] [address] [place] [phone] Jemal Murrell M.B.B.S., Alek [address] [place] [phone] 12/06/2023 10:00 AM CDT Appointment Department of Radiology, [facility] in [place], [place] [address] [place] [phone] Jemal Murrell M.B.B.S., Alek [address] [place] [phone] 12/06/2023 1:30 PM CDT Office Visit Division of Endocrinology in [place], [place] [address] [place] [phone] Zara Garvey APRN, C.N.P., D.N.P. [address] [place] [phone] documented as of this encounter Results * DX Chest AP [...] Jr., D.O. IMG DIAGNOST IC IMAGING PROCEDURES * ECG 12 Lead (04/07/2023 10:59 AM CDT) Ventricular Rate ECG/Min 61 BPM MUSE QRSD Interval 202 ms MUSE QT Interval 496 ms MUSE QTC Interval 499 ms MUSE R [place] 112 degrees MUSE T Wave [place] -49 degrees MUSE 04/07/2023 10:5 9 AM [...] QT has shortened Reviewed by ART Shay Kiko Puente Jr..ODavis ECG ORDERABL ES MUSE NA documented in this encounter Visit Diagnoses Diagnosis Atrial Fibrillation Permanent (HCC)- Primary Atrial Fibrillation Permanent (HCC) Atrial Fibrillation Permanent (HCC) documented in this encounter Additional Health Concerns Assessment Noted Time PHQ-9 Depression Total Score: 5 03/06/20 18 6:00 PM CDT documented as of this encounter Care Teams Manager Of Finance Relationship Specialty Start Date End Date Elsewhere, Pcp PCP - General Internal Medicine 09/13/22 documented as of this encounter
--- OUTSIDE RECORDS SUMMARY | 2023-09-25 09:01 | XMS_ITS | Encounter Summary ---
Author Name Unknown Organization [facility] Address [address] [place] [address] Care Team Providers Care Rn Licensed Practical Name Role Phone Elsewhere, Pcp Primary Care Provider Unavailabl e Encounter Details Date Type Department Care Team (Late st Contact Info) Description 04/04/2023 Documentation Division of Nephrology and Hypertension in [place], [place] [address] [place] [phone] Bonnie Luna, RDaivsN. [address] [place] [address] Social History Tobacco Use Types Packs/Day Years [...] How often do you attend chur or mormonism services? 1 to 4 times per year 08/07/2022 Do you belong to any clubs o r organizations such as tenriism groups, unions, fraternal or athletic groups, or [...] Answer Date Recorded PHQ-2 Score 5 01/25/2019 [facility] - Occupational [...] as of this encounter Progress Notes * Bonnie Luna, RDavisN. - 04/04/2023 2:[address] Sheffield CHIEF COMPLAINT/PURPOSE OF VISIT REASON FOR REFERRAL: Patient asking to have his right upper extremity fistula ligated. HISTORY OF PRESENT ILLNESS ACCESS: [place] Arterial Venous Fistula Date placed - Elsewhere Provider - Unknown LOCATION OF ACCESS: Right Rogelio fistula PERTINENT PROCEDURAL HISTORY: 82 year old male referred by Dr. Sheffield for consideration to ligatehis right upper extremity fistula. He has not required dialysis since the end of 2017. His most recent creatinine was 2.[address] Sheffield's note. His kidney disease is related to prior ATN, endocarditis, and septic shock. 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 PACEMAKER: Yes - left chest DIABETES: No ANTICOAGULATION: Takes 81mg Aspirin and Coumadin. No Plavix, Aggrenox, Dabigatran or Xarelto. LABORATORY RESULTS: Please see outside media dated 03/27/23 for current labs. BMI: Body mass index is 24.64 kg/m??. VEIN MAPPIN04/04/23 ECHOCARDIOGRAM: EF 55% ALLERGIES/ADVERSE REACTIONS -- Iodinated Contrast Media -- Other (see comments) -- Renal Failure, Unknown type of dye -- Lorazepam -- Other (see comments) -- Methimazole -- Other (see comments) -- Trazodone -- Anxiety -- per family/ patient, on previous hospita Surgeon: Patient seen by Dr. Bailon Plan: Ligate his fistula Surgery: Is scheduled for 04/10/2023. Checklist: the Checklist for Surgical Patients ([id number]) was given to the patient with the following instructions: Report to [facility] admissions at the time told to you when you call in the night before. Report fasting after midnight, no am breakfast, but take your am meds with water. Insulin Directions: N/A Anticoagulation medications directions: Dr. Bailon said to hold his Coumadin for 5 days pre surgery. REE: I requested Dr. Sheffield to do this since he just saw him. INFORMED CONSENT Patient will sign the consent form the morning of surgery. documented in this encounter Plan of Treatment Upcoming Encounters Date Type Department Care Team (Late st Contact Info) Description 09/25/2023 3:00 PM CONTRACT TECHNICAL WRITER External Outreach Division of Nephrology and Hypertension in [place], [place] [address] [place] [address] Eddie Sheffield Jr., D.O. [address] [place] [phone] Arrived 12/04/2023 10:30 AM CDT Clinical Communication Virtual Review in [place], [place] [address] [place] [address] 12/06/2023 7:40 AM CDT Lab Department of Laboratory Medicine and Pathology, [facility] in [place], [place] [address] [place] [phone] Jemal Murrell M.B.B.S., Alek [address] [place] [phone] 12/06/2023 8:00 AM CDT Appointment Department of Radiology, [facility] in [place], [place] [address] [place] [phone] Jemal Murrell M.B.B.S., Alek [address] [place] [phone] 12/06/2023 9:20 AM CDT Appointment Department of Radiology, [facility] in [place], [place] [address] [place] [phone] Jemal Murrell M.B.B.S., Alek [address] [place] [phone] 12/06/2023 10:00 AM CDT Appointment Department of Radiology, [facility], in [place], [place] [address] [place] [phone] Jemal Murrell M.B.B.S., Alek [address] [place] [phone] 12/06/2023 1:30 PM CDT Office Visit Division of Endocrinology in [place], [place] [address] [place] [phone] Zara Garvey APRN, C.N.P., D.N.P. [address] [place] [address] documented as of this encounter Visit Diagnoses Not on filedocumented in this encounter Additional Health Concerns Assessment Noted Time PHQ-9 Depression Total Score: 5 03/06/20 18 6:00 PM CDT documented as of this encounter Care Teams Rn Licensed Practical Relationship Specialty Start Date End Date Elsewhere, Pcp PCP - General Internal Medicine 09/13/22 documented as of this encounter
--- OUTSIDE RECORDS SUMMARY | 2023-09-25 09:02 | XMS_ITS | Encounter Summary ---
Author Name Unknown Organization [facility] Address [address] [place] [address] Care Team Providers Care Management Development Specialist Name Role Phone Elsewhere, Pcp Primary Care Provider Unavailabl e Reason for Referral * Outpatient (Routine) - Authorized Specialty Diagnoses / Procedures Referred By Jessica t Referred To Contact Diagnoses Malignant Neoplasm Of Thyroid Papillary (HCC) Procedures BMD Bone Density Spine Hips Jemal Murrell M.B.B.S., M.D. [address] [place] [phone] [facility] Referral ID Status Reason Start Date Expiration Date V isits Requested Visits Authorized [id number] Authorized 02/01/2023 02/01/2024 1 1 * Outpatient (Routine) - Authorized Specialty Diagnoses / Procedures Referred By Jessica patel Referred To Contact Endocrinology Diagnoses Malignant Neoplasm Of Thyroid Papillary (HCC) Jemal Murrell M.B.B.S., M.D. [address] [place] [phone] [facility] Referral ID Status Reason Start Date Expiration Date V isits Requested Visits Authorized [id number] Authorized 02/01/2023 01/31/2026 1 1 * MRI/CAT/PET Scan (Routine) - Pending Review Specialty Diagnoses / Procedures Referred By Jessica t Referred To Contact Radiology Diagnoses Malignant Neoplasm Of Thyroid Papillary (HCC) Procedures CT Chest without IV Contrast Jemal Murrell M.B.B.S., M.D. [address] [place] [phone] [facility] Referral ID Status Reason Start Date Expiration Date V isits Requested Visits Authorized [id number] Pending Review 02/01/2023 02/01/2024 1 1 * Outpatient (Routine) - Authorized Specialty Diagnoses / Procedures Referred By Jessica patel Referred To Contact Diagnoses Malignant Neoplasm Of Thyroid Papillary (HCC) Procedures US Head Neck Soft Tissue Jemal Murrell M.B.B.S., M.D. [address] [place] [phone] [facility] Referral ID Status Reason Start Date Expiration Date V isits Requested Visits Authorized [id number] Authorized 02/01/2023 02/01/2024 1 1 Reason for Visit * Outpatient (Routine) - Closed Specialty Diagnoses / Procedures Referred By Jessica patel Referred To Contact Endocrinology Diagnoses Malignant Neoplasm Of Thyroid Papillary (HCC) Jemal Murrell M.B.B.S., M.D. [address] [place] [phone] [facility] Referral ID Status Reason Start Date Expiration Date Visits Re quested Visits Authorized [id number] Closed 09/14/2022 09/13/2025 1 1 Encounter Details Date Type Department Care Team (Latest Contact Info) Description 02/01/2023 10:30 AM CDT Office Visit Division of Endocrinology in [place], [place] [address] [place] [phone] Jemal Murrell M.B.B.S., M.D. 200 [place] [phone] Malignant Neoplasm Of Thyroid Papillary (HCC) (Primary Dx) Social History Tobacco Use [...] week 08/07/2022 How often do you attend [facility] or jewish services? 1 to 4 times per year 08/07/2022 Do you belong to any clubs o r organizations such as baptist groups, unions, fraternal or athletic groups, or [...] Answer Date Recorded PHQ-2 Score 5 01/25/2019 [facility] - Occupational [...] place to sleep or slept in a senior living (including now)? No 08/07/2022 Nutrition Answer Date [...] Sign Reading Time Taken Comments Blood Pressure 133/72 02/01/2023 9:59 AM CDT Pulse 72 02/01/2023 9:59 AM CDT Temperature - - Respiratory Rate - - Oxygen Saturation - - Inhaled Oxygen Concentration - - Weight 72.8 kg (160 lb 7.9 oz) 02/01/2023 9:59 A M CDT Height 172 cm (5' 7.72) 02/01/2023 9:59 AM CDT Body Mass Index 24.61 02/01/2023 9:59 AM CDT documented in this encounter Progress Notes * Jemal Murrell M.B.B.S. - 02/01/2023 10:30 AM CDT [facility] Endocrinology, Diabetes, and Nutrition Continuity Clinic Follow up Visit DATE OF VISIT: 02/01/2023 SUBJECTIVE CHIEF COMPLAINT/REASON FOR VISIT Follow up for papillary thyroid cancer. HISTORY OF PRESENT ILLNESS Jose Kearney is a 82 y.o. male who presents for follow up. Please refer to my initial consultation note from 06/11/2020. #1. Metastatic papillary thyroid cancer: From a thyroid point of view, Mr. Kearney has a history of Graves' disease, which was diagnosed [id number], He received radioactive iodine at that time and has subsequently received levothyroxine replacement therapy. In July 2016, he noted palpable nodes in his neck, both on the left and on the right. In October 2016 at an external facility, he underwent a formal ultrasound and proceeded to have a fine-needle aspiration of the left supraclavicular lymph nodes. This confirmed papillary thyroid cancer, and these slides were reviewed by our pathologist here at [facility] who concurred with this diagnosis. His treatment was somewhat delayed due to his cardiac issues, but in March 2017 between hospitalizations he had a further ultrasound of the soft tissue head and neck here at [place] [facility]. This revealed multiple enlarged lymph nodes in either side of the neck, more so on the left than on the right, which were all worrisome for metastatic thyroid cancer. A left nodule measuring 1.6 x 1.1 x 1.1 cm was present, and this was concerning as being the primary site for the papillary thyroid cancer. On review, this thyroid nodule appears predominantly solid and hypoechoic. To allow Mr. Kearney time to recover from his cardiac issues and to decide on the optimal approachfor his metastatic thyroid cancer, we embarked on a period of observation. In August 2017, he did have a CT neck completed. This again confirmed the thyroid nodules and enlarged lymph nodes, but there was no evidence of tracheal invasion or a definite carotid encasement. The scan, however, was without contrast due to his renal function, and therefore the quality was somewhat reduced. He had a vocal cord check also completed in August 2017, and there was normal function of his vocal cords. Further imaging on December 14, 2017, included an ultrasound soft tissue head and neck, which showed no substantial change in the largest thyroid nodule on the left and the bilateral metastatic cervical adenopathy. Mr. Kearney's case was discussed at our Tumor Board meeting. It was felt overall that from a cancer management viewpoint, the optimal treatment would involve a total thyroidectomy and neck dissection. This could be followed by radioactive iodine therapy. Mr. Kearney underwent surgery on 04/18/[address] Trivedi. He had a total thyroidectomy with central compartment node dissection, left neck dissection areas 2A, 3 and 4 and right neck dissectionareas 3 and 4. The pathology revealed papillary thyroid cancer, classic subtype forming multiple masses ranging in size from 0.3-1.9 cm location the left right and isthmus portion of the thyroid withextrathyroidal extension and diffusely positive surgical margins along the left lobe. Multiple lymph nodes were positive including 4 lymph nodes in the central compartment (area ) and 5 of 23 left level IIA - IV lymph nodes with the largest lymph node involved by tumor measuring 3.4 cm. On the right side levels III-IV, 1 of 10 lymph nodes were positive for metastatic cancer. Angio invasion was not identified but lymphatic invasion was present. Extra thyroidal extension was present to the strap muscles. Overall the staging is [id number] and this is high risk disease. Of note, Mr. Kearney did have a PET-CT and a noncontrast CT chest completed in February 2018 which did not show evidence for disease outside of the neck area. Mr. Kearney did have to return to the OR for hematoma evacuation shortly after his initial surgerybut was dismissed on 04/23/2018. He received radioactive iodine 104.07 mCi on 09/06/2018. His pre treatment scan revealed focal [id number] along the expected location of the thyroglossal duct, consistent with residual functioning thyroid tissue with no correlate lesion identified on CT. These findings could have represented remnant versus small volume metastatic disease but no distal iodine avid metastatic disease was noted at side of the neck. Due to difficulties in traveling here because of poor weather, he did not have a post treatment scan. Following recommendations from our ENT colleagues, he had a PET-CT completed on 11/26/2018. This revealed no evidence for recurrent or metastatic thyroid malignancy but there was evidence of indeterminate uptake in the prostate gland. This was followed up by our colleagues in Urology who monitored his PSA, found to be stable and have recommended annual PSA monitoring by his primary care provider. During the last f/u period in 08/2022, his Tg mega from 1.1 to 2 ng/mL without any structural disease in the neck as evident from the ultrasound. Clinically he was doing well. His goal TSH was also relaxed from suppressive regimen to 0.1- 1.0 mIU/L goal range and hence his LT4 dose was adjusted to 175 mcg dose daily from Monday through Monday and on Sundays only 1/2 a pill. IN view of uptrending Tg, we elected to bring him back in [address] check to assess the structural burden. Today he came for f/u visit. - No complaints. - Currently taking LT4 175 mcg daily M through Sat and on S only 1/2 a pill. - Current TSH during this visit was 0.3 mIU/L (at goal between 0.1 and 1.0 mIU/L). Free T4 of 2.2 ng/dL (without any evidence of hyperthyroidism symptoms). - No bone pain, fractures, neck pain, change in voice. - No SOB, chest pain. - Tg is pending. - US neck: stable avascular nodule (stable). No evidence of recurrent or metastatic disease. - CT Chest showed multiple subcentimeter pulmonary nodule noncalcified ranging between 5 and 6 mm consistent with possible metastatic disease. In comparison to the CT scan from 2018 which did not show any evidence of metastatic disease. I personally confirmed and compared the images from 2018 and 2022 by myself. The following portions of the patient's history were reviewed and updated as appropriate: allergies, current medications, medical history and problem list. OBJECTIVE OBJECTIVE: BP 133/72 (BP Location: Right arm, Patient Position: Sitting) Pulse 72 Ht 172 cm Wt 72.8 kg BMI 24.61 kg/m?? PHYSICAL EXAMINATION - Normal affect. - Comfortable at rest and not in acute distress. - ORIENTAL MEDICINE PRACTITIONER: alert and oriented. - Neck: No thyromegaly. - CVS: perfusing well. DP 2+, S1, S2+. - RS: Clear to auscultation bilaterally. DIAGNOSTICS Pertinent labs: Reviewed (as outlined in the HPI). Pertinent Imaging: Reviewed (as outlined in the HPI). ASSESSMENT / PLAN #1. Metastatic papillary thyroid cancer- [id number] to Lung #2. Status post total thyroidectomy with central compartment lymph node dissection. #3. 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 #4. Status post radioactive iodine treatment following surgery with 104.07 mCi --I reviewed the CT scan of the chest with Mr. Kearney and his and based on the imaging in comparison to the imaging from 2018, it is likely that he has metastatic disease in his lung. The structural burden is very minimal and the largest metastatic foci is measuring around 6 mm in size. He is clinically doing well without any complaints. --With the understanding of these papillary thyroid cancer and the rate of growth of the metastaticlesions in lung is very slow and the patient is clinically asymptomatic, it would be reasonable to repeat the imaging in 9 months to assess the rate of growth of these nodules. Also the CT scan did not show any evidence of pleural effusion or pleural based metastatic foci. It is likely that these nodules are slow growing and an active surveillance with recurrent imaging would be sufficient. Henceafter an extensive discussion, we elected to pursue a repeat CT scan during the follow-up visit. --If the nodules are stable in size this could potentially be monitored. However if the pulmonary nodules her rapidly growing with associated complications then we might consider whole-body radioactive iodine scan for possible retreatment with radioactive iodine. --For now he will continue the current dose of levothyroxine as outlined above with a goal TSH between 0.1 and 1 mIU per L. --Furthermore with the aggressive nature of his tumor during the initial diagnosis, it may be reasonable to consider genetic testing in the future should his structural tumor burden is rapidly worsening for the anticipated need for targeted therapy in the future. --In the setting of his pulmonary metastasis, he would require lifelong follow- up and possibly supra physiological dose of levothyroxine. I will also get an updated baseline bone density scan during the next follow-up visit because of his longstanding requirement for supra physiological dose of levothyroxine. Follow up: 9 months with repeat US neck, CT chest, TSH, free T4 and Tg, BMD Patient is in content with the plan. Patient staffed with Leonard Johnson. Associated attestation - Raven Holloway M.D. - 02/02/2023 8:02 AM CDT I agree with the assessment and plan as per detailed note of . Patient has history of metastatic papillary thyroid cancer status post total thyroidectomy with central compartment lymphnode dissection and post iodine therapy of 100 mCi. He was found to have small pulmonary nodules about 6 mm in size which my most likely might represent metastatic disease. Today thyroglobulin levelsare pending. Patient will have a re-evaluation in [address] chest ultrasound of neck TSH free thyroxine thyroglobulin and bone density and if there is progression of the nodules consideration of iodine therapy can be given. documented in this encounter Plan of Treatment Upcoming Encounters Date Type Department Care Team (Late st Contact Info) Description 09/25/2023 3:00 PM EXPLOSIVE MAN External Outreach Division of Nephrology and Hypertension in [place], [place] [address] [place] [phone] Eddie Sheffield Jr., D.O. [address] [place] [phone] Arrived 12/04/2023 10:30 AM CDT Clinical Communication Virtual Review in [place], [place] [address] [place] [address] 12/06/2023 7:40 AM CDT Lab Department of Laboratory Medicine and Pathology, [facility] in [place], [place] [address] [place] [phone] Jemal Murrell M.B.B.S., MYudy [address] [place] [phone] 12/06/2023 8:00 AM CDT Appointment Department of Radiology, [facility] in [place], [place] [address] [place] [phone] Jemal Murrell M.B.B.S., MYudy [address] [place] [phone] 12/06/2023 9:20 AM CDT Appointment Department of Radiology, [facility] in [place], [place] [address] [place] [address] Jemal Murrell M.B.B.S., Alek [address] [place] [phone] 12/06/2023 10:00 AM CDT Appointment Department of Radiology, [facility], in [place], [place] [address] [place] [address] Jemal Murrell M.B.B.S., MYudy [address] [place] [phone] 12/06/2023 1:30 PM CDT Office Visit Division of Endocrinology in [place], [place] 200 [place] [phone] Zara Garvey APRN, C.N.P., D.N.P. 200 [place] [address] Scheduled Orders Name Type Priority Associated Diagnoses Order Schedule US Head Neck Soft Tissue Imaging RAD - Routine (most inpatients and all outpatients) Malignant Neoplasm Of Thyroid Papillary (HCC) Expected: 11/02/2023, Expires: 05/04/2024 CT Chest without IV Contrast Imaging RAD - Routine (most inpatients and all outpatients) Malignant Neoplasm Of Thyroid Papillary (HCC) Expected: 12/06/2023, Expires: 05/04/2024 S-TSH (Thyroid-Stimulating Hormone - Sensitive) Lab Routine Malignant Neoplasm Of Thyroid Papillary (HCC) Expected: 11/02/2023, Expires: 05/04/2024 T4 (Thyroxine), Free Lab Routine Malignant Neoplasm Of Thyroid Papillary (HCC) Expected: 11/02/2023, Expires: 05/04/2024 Thyroglobulin, Tumor Marker Reflex to LC-MS/MS or Immunoassay Lab Routine Malignant Neoplasm Of Thyroid Papillary (HCC) Expected: 11/02/2023, Expires: 02/02/2024 BMD Bone Density Spine Hips Imaging RAD - Routine (most inpatients and all outpatients) Malignant Neoplasm Of Thyroid Papillary (HCC) Expected: 11/02/2023, Expires: 05/04/2024 Scheduled Referrals Name Type Priority Associated Diagnoses Order Schedule Endocrinology office visit (clinic) Outpatient Referral Routine Malignant Neoplasm Of Thyroid Papillary (HCC) Expected: 11/02/2023 (Approximate), Expires: 05/04/2024 documented as of this encounter Visit Diagnoses Diagnosis Malignant Neoplasm Of Thyroid Papillary (HCC)- Primary documented in this encounter Additional Health Concerns Assessment Noted Time PHQ-9 Depression Total Score: 5 03/06/20 18 6:00 PM CDT documented as of this encounter Care Teams Management Development Specialist Relationship Specialty Start Date End Date Elsewhere, Pcp PCP - General Internal Medicine 09/13/22 documented as of this encounter
--- OUTSIDE RECORDS SUMMARY | 2023-09-25 09:02 | XMS_ITS | Encounter Summary ---
Author Name Unknown Organization [facility] Address [address] [place] [address] Care Team Providers Care Welfare Centre Manager Name Role Phone Elsewhere, Pcp Primary Care Provider Unavailabl e Encounter Details Date Type Department Care Team (Late st Contact Info) Description 04/03/2023 Episode Changes Division of Nephrology and Hypertension in [place], [place] [address] [place] [phone] Bonnie Luna, RDavisN. [address] [place] [address] Social History Tobacco Use Types Packs/Day Years [...] any clubs o r organizations such as episcopalian groups, unions, fraternal or athletic groups, or [...] Answer Date Recorded PHQ-2 Score 5 01/25/2019 [facility] - Occupational Stress [...] st Contact Info) Description 09/25/2023 3:00 PM NETWORK PRICING CONSULTANT External Outreach Division of Nephrology and Hypertension in [place], [place] 200 [place] [address] Eddie Sheffield Jr., D.O. [address] [place] [address] Arrived 12/04/2023 10:30 AM CDT Clinical Communication Virtual Review in [place], [place] 200 [place] [address] 12/06/2023 7:40 AM CDT Lab Department of Laboratory Medicine and Pathology, [facility] in [place], [place] [address] [place] [phone] Jemal Murrell M.B.B.S., Alek [address] [place] [phone] 12/06/2023 8:00 AM CDT Appointment Department of Radiology, [facility] in [place], [place] [address] [place] [phone] Jemal Murrell M.B.B.S., Alek [address] [place] [phone] 12/06/2023 9:20 AM CDT Appointment Department of Radiology, [facility] in [place], [place] [address] [place] [phone] Jemal Murrell M.B.B.S., Alek [address] [place] [phone] 12/06/2023 10:00 AM CDT Appointment Department of Radiology, [facility], in [place], [place] [address] [place] [phone] Jemal Murrell M.B.B.S., Alek [address] [place] [phone] 12/06/2023 1:30 PM CDT Office Visit Division of Endocrinology in [place], [place] [address] [place] [phone] Zara Garvey APRN, C.N.P., D.N.P. [address] [place] [phone] documented as of this encounter Visit Diagnoses Not on filedocumented in this encounter Additional Health Concerns Assessment Noted Time PHQ-9 Depression Total Score: 5 03/06/20 18 6:00 PM CDT documented as of this encounter Care Teams Welfare Centre Manager Relationship Specialty Start Date End Date Elsewhere, Pcp PCP - General Internal Medicine 09/13/22 documented as of this encounter
--- OUTSIDE RECORDS SUMMARY | 2023-09-25 09:02 | XMS_ITS | Encounter Summary ---
Author Name Unknown Organization [facility] Address [address] [place] [address] Care Team Providers Care Sand Hauler Name Role Phone Elsewhere, Pcp Primary Care [...] US Hemodialysis Fistula-Graft Right Eddie Sheffield Jr., D.O. 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 [address] [place] [address] [facility] Referral ID Status Reason Start Date Expiration Date Visits Re quested Visits Authorized [id number] Closed 04/03/2023 04/02/2024 1 1 Reason for Visit * Appointment Request (Routine) - Closed Specialty Diagnoses / Procedures Referred By Jessica patel Referred To Contact Nephrology and Hypertension Referral ID Status Reason Start Date Expiration Date Visits Re quested Visits Authorized [id number] Closed 02/03/2023 02/03/2024 1 1 Encounter Details Date Type Department Care Team (Latest Contact Info) Description 04/03/2023 1:00 PM CDT External Outreach Division of Nephrology and Hypertension in [place], [place] [address] [place] [address] Eddie Sheffield Jr., D.O. [address] [place] [address] Hypertension And Chronic Kidney Disease Stage 4 (HCC) (Primary Dx); Malignant Neoplasm Of Thyroid Papillary (HCC); Hyperparathyroidism [...] often do you attend chur ch or buddhism services? 1 to 4 times per year 08/07/2022 Do you belong to any clubs o r organizations such as taoist groups, unions, fraternal or athletic groups, or [...] Answer Date Recorded PHQ-2 Score 5 01/25/2019 [facility]ational Stress Questionnaire Answer [...] place to sleep or slept in a long-term (including now)? No 08/07/2022 Nutrition Answer Date [...] Sign Reading Time Taken Comments Blood Pressure 138/70 04/03/2023 1:36 PM CDT Pulse 66 04/03/2023 1:36 PM CDT Temperature - - Respiratory Rate - - Oxygen Saturation - - Inhaled Oxygen Concentration - - Weight 71.2 kg (156 lb 15.5 oz) 04/03/2023 1:36 PM CDT Height 170 cm (5' 6.93) 04/03/2023 1:36 PM CDT Body Mass Index 24.64 04/03/2023 1:36 PM CDT documented in this encounter Progress Notes * Eddie Sheffield Jr., D.O. - 04/03/2023 1:00 PM CDT Referring Provider: ELSEWHERE, PCP SUBJECTIVE REASON FOR VISIT [facility] Follow-up regards CKD HISTORY OF PRESENT ILLNESS Mr. Kearney is a 82 y.o. male who presents with a longstanding history of CKD on the background ofprior ATN, with endocarditis, septic shock. Required dialysis until the end of 2018. He is hopeful to have his right arteriovenous fistula ligated. I appreciate this was placed elsewhere, prior to his arrival at [facility] in desperate straits. He is not required renal replacement in his renal function has remained stable with a creatinine of 2.2 mg/dL. He is no symptoms of ischemia in his right hand, he is left-handed. 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 He feels well in all respects blood pressure has been excellent running in the 118 over 70s range without orthostatic issues. He feels well in all respects in his well compensated from his heart failure. He is going to be visiting with Cardiology next month. We will need their opinion as to whether he is okay for anesthesiaas we consider ligation of his upper extremity fistula. This could theoretically be done under regional block. He is orally anticoagulated and his most recent INR was 2.8 performed last week on Monday. No challenges from his oral anticoagulant therapy. 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 (Patient taking differently: Take 500 mg by mouth as needed. For Dental Procedures), Disp: 12 capsule, Rfl: [address] tablet, Take 1 tablet by mouth daily. for heart failure. Refills per PCP, Disp: , Rfl: atorvastatin (LIPITOR) 10 mg tablet, TAKE ONE TABLET BY MOUTH DAILY FOR HIGH CHOLESTEROL, Disp: 90 tablet, Rfl: 3 calcium citrate-vitamin D3 (CITRACAL+D) 315-200 mg-unit per tablet, Take 2 tablets by mouth daily with breakfast., Disp: , Rfl: carvediloL (COREG) 25 mg tablet, Take 1 tablet (25 mg total) by mouth 2 (two) times a day with meals., Disp: 180 tablet, Rfl: 3 furosemide (LASIX) 20 mg tablet, Take 1 tablet by mouth daily., Disp: , Rfl: hydrALAZINE (APRESOLINE) 25 mg tablet, TAKE 1 TABLET BY MOUTH THREE TIMES A DAY, Disp: 270 tablet, Rfl: 3 isosorbide mononitrate (IMDUR) 30 mg 24 hr tablet, Take 1 tablet (30 mg total) by mouth at bedtime., Disp: 90 tablet, Rfl: 3 Klor-Con M20 20 mEq ER tablet, Take 20 mEq by mouth daily., Disp: , Rfl: levothyroxine (SYNTHROID, LEVOTHROID) 175 mcg tablet, TAKE 1 TABLET BY MOUTH EVERY MORNING BEFORE BREAKFAST. (Patient taking differently: Take 175 mcg by mouth as directed. 175 mcg tablet daily excepts on Sundays, pt takes a half of a 175 mcg tablet -), Disp: 90 tablet, Rfl: 3 melatonin 3 mg tablet, Take 1 tablet by mouth at bedtime., Disp: , Rfl: multivitamin tablet, Take 1 tablet by mouth daily. Centrum (per rag grader) , Disp: , Rfl: omeprazole (PriLOSEC) [address] capsule, TAKE ONE CAPSULE BY MOUTH ONE TIME DAILY FOR ACID REFLUX, Disp: 100 capsule, Rfl: 3 warfarin (COUMADIN) 1 mg tablet, Take 4-5 tablets by mouth as directed. 4 tabs on Monday/Monday/Monday 3 tabs all other days , Disp: , Rfl: REVIEW OF SYSTEMS All other systems reviewed and are negative. OBJECTIVE BP 138/70 Pulse 66 Ht 170 cm Wt 71.2 kg BMI 24.64 kg/m?? PHYSICAL EXAMINATION General: Awake alert oriented HEENT: BRINDA, EOMI, Mucous membranes moist, no oral lesions Neck: No Masses, No Bruits Lungs: Clear to ascultation Heart: Regular rhythm, he has a 3/6 systolic ejection murmur with a rumbling character. Abdomen: Soft, Non-tender Extremities: No cyanosis, No clubbing: No edema, right upper extremity forearm arteriovenous fistula with excellent bruit thrill and venous collapse with arm raise Neuro: Cranial Nerves intact, Gait is normal, strength grossly normal Skin: no suspicious lesions identified Psychiatric: Normal affect DIAGNOSTICS Note creatinine 2.2, CBC normal, urinalysis shows no microalbuminuria ASSESSMENT / PLAN #1 Hypertension And Chronic Kidney Disease Stage 4 (HCC) Blood pressure is well controlled, his renal function remains gratifyingly stable with a creatinineof 2.2. The chances of him requiring his fistula for dialysis are less than 10% barring any unforeseen acute critical illness. Going forward: 1. Goal blood pressure less than 120/80-achieved 2. No NSAIDs or Edward 2 inhibitors 3. Stay well hydrated 4. Continue his current medical regimen, I will see him back in 6 months. 5. I will refer to vascular surgery for opinion regards ligation of his fistula. The order set required a ultrasound, I am not certain this is truly necessary. #2 Malignant Neoplasm Of Thyroid Papillary (HCC) He has pulmonary nodules which we will monitor carefully. #3 Hyperparathyroidism Renal Secondary (HCC) Calcium phosphorus are acceptable. #4 Anticoagulant Therapy Anticoagulant therapy is proceeding, his INR is excellent. #5 Chronic Systolic (Congestive) Heart Failure (HCC) He is well compensated with excellent blood pressure, no edema, he is following a sodium restricteddiet and monitoring his blood pressure and weight daily. He is upcoming appointments with the Cardiology team, as he has had extensive cardiovascular issues including aortic root endocarditis. Total time: 35 minute Counseling Time: 25 minute Eddie Sheffield Jr., D.O. documented in this encounter Plan of Treatment Upcoming Encounters Date Type Department Care Team (Late st Contact Info) Description 09/25/2023 3:00 PM LEVEL GLASS VIAL FILLER External Outreach Division of Nephrology and Hypertension in [place], [place] [address] [place] [phone] Eddie Sheffield Jr., D.O. [address] [place] [phone] Arrived 12/04/2023 10:30 AM CDT Clinical Communication Virtual Review in [place], [place] 200 [place] [address] 12/06/2023 7:40 AM CDT Lab Department of Laboratory Medicine and Pathology, [facility] in [place], [place] [address] [place] [address] Jemal Murrell M.B.B.S., Alek [address] [place] [phone] 12/06/2023 8:00 AM CDT Appointment Department of Radiology, [facility] in [place], [place] [address] [place] [address] Jemal Murrell M.B.B.S., Alek [address] [place] [phone] 12/06/2023 9:20 AM CDT Appointment Department of Radiology, [facility] in [place], [place] [address] [place] [address] Jemal Murrell M.B.B.S., Alek [address] [place] [phone] 12/06/2023 10:00 AM CDT [facility] [place] [place] [address] [place] [address] Jemal Murrell M.B.B.S., Alek [address] [place] [phone] 12/06/2023 1:30 PM CDT Office Visit Division of Endocrinology in [place], [place] [address] [place] [address] Zara Garvey APRN, C.N.P., D.N.P. 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 Anastomosis: No evidence of significant stenosis. Moapa artery proximal to AVF: Normal [place] artery distal to AVF: Retrograde Outflow vein: [...] fistula. Anastomosis: No evidence of significant stenosis. [place] artery proximal to AVF: Normal [place] artery distal to AVF: Retrograde Outflow vein: [...] basilic vein normal flow volume. Eddie Sheffield Jr. 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
--- OUTSIDE RECORDS SUMMARY | 2023-09-25 09:02 | XMS_ITS | Encounter Summary ---
Author Name Unknown Organization [facility] Address [address] [place] [address] Care Team Providers Care Scooper Name Role Phone Elsewhere, Pcp Primary Care Provider Unavailabl e Encounter Details Date Type Department Care Team (Latest Contact Info) Description 03/22/2023 4:00 AM CDT - 03/22/2023 11:59 PM CDT Hospital Encounter Department of Cardiovascular Diseases in [place], [place] [address] [place] [phone] Hussain Ocampo M.D., M.P.H. [address] [place] [phone] Encounter For Checking And Testing Of Cardiac [...] any clubs o r organizations such as temple groups, unions, fraternal or athletic groups, or [...] Answer Date Recorded PHQ-2 Score 5 01/25/2019 [facility] of Occupat ional Health - Occupational [...] 1 tablet by mouth daily. Centrum (per equipment operator warehouse) 0 10/09/2017 omeprazole (PriLOSEC) [address] [...] st Contact Info) Description 09/25/2023 3:00 PM RISK ENGINEER External Outreach Division of Nephrology and Hypertension in [place], [place] [address] [place] [address] Eddie Sheffield Jr., D.O. [address] [place] [address] Arrived 12/04/2023 10:30 AM CDT Clinical Communication Virtual Review in [place], [place] [address] [place] [address] 12/06/2023 7:40 AM CDT Lab Department of Laboratory Medicine and Pathology, [facility] in [place], [place] [address] [place] [phone] Jemal Murrell M.B.B.S., Alek [address] [place] [phone] 12/06/2023 8:00 AM CDT Appointment Department of Radiology, [facility] in [address] [phone] Jemal Murrell M.B.B.S., Alek [address] [place] [phone] 12/06/2023 9:20 AM CDT Appointment Department of Radiology, [facility] in [place], [place] [address] [place] [phone] Jemal Murrell M.B.B.S., Alek [address] [place] [phone] 12/06/2023 10:00 AM CDT Appointment Department of Radiology, [facility], in [place], [place] [address] [place] [phone] Jemal Murrell M.B.B.S., MYudy [address] [place] [phone] 12/06/2023 1:30 PM CDT Office Visit Division of Endocrinology in [place], [place] [address] [place] [phone] Zara Garvey APRN, C.N.P., D.N.P. [address] [place] [address] documented as of this encounter Procedures Procedure Name Priority Date/Time Associated Diagnosis Comments PACER REMOTE FOLLOW UP Routine 03/23/2023 1:25 PM CDT Encounter For Checking And Testing Of Cardiac Pacemaker Pulse Generator Battery documented in this encounter Results * PACER REMOTE FOLLOW UP (03/23/2023 1:25 PM CDT) Date Time Interrogation Session [id number] [facility] Implantable Pulse Generator Line Repairer Medtronic [facility] Implantable Pulse Generator Model [id number] Preeti XT SR MRI [facility] Implantable Pulse Generator Serial Number [id number] [facility] Type Interrogation Session Remote [facility] Clinic Name [facility] Implantable Pulse Generator Type Pacemaker [facility] Implantable Pulse Generator Implant Date [id number] [facility] Implantable Lead Line Repairer Medtronic [facility] Implantable Lead Model [id number] Attain Ability MRI SureScan [facility] Implantable Lead Serial Number [id number] [facility] Implantable [...] Channel Setting Sensing Anode Location Right Ventricle [facility] Lead Channel Setting Sensing Anode Terminal Ring [facility] Lead Channel Setting Sensing Cathode Location Right Ventricle [facility] Lead Channel Setting Sensing Cathode Terminal Tip [facility] Lead Channel Setting Sensing Sensitivity 0.9 mV [facility] Lead Channel Setting Pacing Polarity Bipolar [facility] Lead Channel Setting Pacing Anode Location Right Ventricle [facility] Lead Channel Setting Pacing Anode Terminal Ring [facility] Lead Channel Setting Sensing Cathode Location Right Ventricle [facility] Lead Channel Setting Sensing Cathode Terminal Tip [facility] Lead Channel Setting Pacing Pulse Width 0.4 ms [facility] Lead Channel Setting Pacing Amplitude 2.5 V [facility] Lead Channel Setting [...] [facility] Lead Channel Impedance Value 608 ohm [facility] Lead Channel Impedance Value 304 ohm [facility] Lead Channel Sensing Intrinsic Amplitude 13.125 mV [facility] Lead Channel Sensing Intrinsic Amplitude 13.125 mV [facility] Lead Channel Pacing Threshold Amplitude 1.125 V [facility] Lead Channel Pacing Threshold Pulse Width 0.4 ms [facility] Battery Date Time of Measurements [facility] Battery Status Middle of Service [facility] Battery CATALOGING ASSISTANT Trigger 2.625 [facility] Battery Remaining Longevity 95 mo [facility] Battery Voltage 3.00 V [facility] Cholo Statistic Date Time Start [facility] Cholo Statistic Date Time End [facility] Cholo Statistic RV Percent Paced 99.01 % [facility] Episode Statistic Recent Count 0 [facility] Episode Statistic Type Category Patient Activated [facility] Episode Statistic Recent Count 1 [facility] Episode Statistic Type Category [place] [facility] Episode Statistic Recent Count 0 [facility] Episode Statistic Type Category VT [facility] Episode Statistic Recent Date Time Start [id number] [facility] Episode Statistic Recent Date Time End F[facility] Episode Statistic Recent Date Time Start [id number] [facility] Episode Statistic Recent Date Time End [id number] [facility] Episode Statistic Recent Date Time Start [facility] Episode Statistic Recent Date Time End [id number] [facility] Episode Statistic Total Count [...] SYSTEM Episode Statistic Total Date Time Start [id number] [facility] Episode Statistic Total Date Time End [facility] Episode Statistic Total Date Time Start [id number] [facility] Episode Statistic Total Date Time End [id number] [facility] Episode Identifier 3 [facility] Episode Type Category [place] [facility] Episode Date Time [id number] [facility] Episode Duration 2 s [facility] Anatomical Region Laterality Modality Other 03/22/2023 12:0 6 AM CDT Narrative 04/14/2023 4:54 PM CDT PURPOSE OF VISIT: Routine remote transmission. PRESENTING EGM: ??VETERINARY SURGEON at 60 bpm. ?? VENTRICULAR ARRHYTHMIAS: ??One event 02/14/23 11:19, EGM shows 3 PVC then monomorphic VT for 11 beats at 200bpm. I was unable to contact patient regarding any associated symptoms. BATTERY LONGEVITY: Expected battery longevity trends reviewed and are stable and consistent with device settings and use. SUMMARY: All device function appears normal. Seven [place] CNP updated of findings. FOLLOW UP: Next routine follow-up will be in 3 months via [facility] transmission. DEVICE RN: Sindy Singer Provider statement: This patient underwent device interrogation. I agree that the device interrogation was medically indicated to provide appropriate care and continue routine device interrogations as indicated. Hussain Ocampo M.D., M.P.H. CV IMPLANTAB LE CARDIAC DEVICE documented in this encounter Visit Diagnoses Diagnosis Encounter For Checking And Testing Of Cardiac Pacemaker Pulse Generator Battery documented in this encounter Additional Health Concerns Assessment Noted Time PHQ-9 Depression Total Score: 5 03/06/20 18 6:00 PM CDT documented as of this encounter Care Teams Scooper Relationship Specialty Start Date End Date Elsewhere, Pcp PCP - General Internal Medicine 09/13/22 documented as of this encounter
--- OUTSIDE RECORDS SUMMARY | 2023-09-25 09:02 | XMS_ITS | Encounter Summary ---
Author Name Unknown Organization [facility] Address [address] [place] [address] Care Team Providers Care Food Order Expediter Name Role Phone Elsewhere, Pcp Primary Care Provider Unavailabl e Reason for Visit * Reason Onset Date Comments Parathyroid Order 03/27/2023 Encounter Details Date Type Department Care Team (Latest Contact Info) Description 03/27/2023 Clinical Communication Division of Nephrology and Hypertension in [place], [place] [address] [place] [address] Eddie Sheffield Jr., D.O. [address] [place] [phone] Parathyroid Order Social History Tobacco Use Types Packs/Day Years [...] often do you attend chur ch or church services? 1 to 4 times [...] Answer Date Recorded PHQ-2 Score 5 01/25/2019 [facility] - Occupational Stress Questionnaire Answer Date [...] to sleep or slept in a senior care (including now)? No 08/07/2022 Nutrition Answer Date [...] PM CDT documented as of this encounter Miscellaneous Notes * Telephone Encounter - Maty Palomares - 03/27/2023 9:20 AM CDT Damaris from [facility] [place] called again and said she got the order figured out and does not need a call back. Thank you. * Telephone Encounter - Heimer, Diane L - 03/27/2023 8:18 AM CDT Damaris from [facility] called regarding the patient's parathyroid order. In the past, it has been a parathyroid serum that has been ordered; however, now, the order states parathyroid related peptide plasma. She wants to make sure this is correct and can be reached back at [phone]. Thank you. documented in this encounter Plan of Treatment Upcoming Encounters Date Type Department Care Team (Late st Contact Info) Description 09/25/2023 3:00 PM DOOR REPAIRMAN External Outreach Division of Nephrology and Hypertension in [address] [phone] Eddie Sheffield Jr., D.O. [address] [place] [phone] Arrived 12/04/2023 10:30 AM CDT Clinical Communication Virtual Review in [place], [place] 200 [place] [address] 12/06/2023 7:40 AM CDT Lab Department of Laboratory Medicine and Pathology, [address] [phone] Jemal Murrell M.B.B.S., MYudy [address] [place] [phone] 12/06/2023 8:00 AM CDT Appointment Department of Radiology, [address] [phone] Jemal Murrell M.B.B.S., MYudy [address] [place] [phone] 12/06/2023 9:20 AM CDT Appointment Department of Radiology, [place], in [place], [place] [address] [place] [address] Jemal Murrell M.B.B.S., MYudy [address] [place] [phone] 12/06/2023 10:00 AM CDT Appointment Department of Radiology, [facility] in [place], [place] [address] [place] [address] Jemal Murrell M.B.B.S., Alek [address] [place] [phone] 12/06/2023 1:30 PM CDT Office Visit Division of Endocrinology in [place], [place] [address] [place] [phone] Zara Garvey APRN, C.N.P., D.N.P. [address] [place] [phone] documented as of this encounter Visit Diagnoses Not on filedocumented in this encounter Additional Health Concerns Assessment Noted Time PHQ-9 Depression Total Score: 5 03/06/20 18 6:00 PM CDT documented as of this encounter Care Teams Food Order Expediter Relationship Specialty Start Date End Date Elsewhere, Pcp PCP - General Internal Medicine 09/13/22 documented as of this encounter
--- OUTSIDE RECORDS SUMMARY | 2023-09-25 09:02 | XMS_ITS | Encounter Summary ---
Author Name Unknown Organization [facility] Address [address] [place] [address] Care Team Providers Care Claims Collector Name Role Phone Elsewhere, Pcp Primary Care Provider Unavailabl e Reason for Referral * Outpatient (Routine) - Closed Specialty Diagnoses / Procedures Referred By Jessica patel Referred To Contact Diagnoses Aneurysm Abdominal Aortic Personal History Procedures US Aorta Devi Stafford APRN, C.NTato, M.S.N. [address] [place] [phone] [facility] Region Referral ID Status Reason Start Date Expiration Date Visits Re quested Visits Authorized [id number] Closed 02/17/2023 02/17/2024 1 1 Encounter Details Date Type Department Care Team (Late st Contact Info) Description 02/17/2023 Clinical Communication Department of Cardiovascular Medicine in [place], [place] [address] [place] [phone] Devi Stafford APRN, C.NTato, M.S.N. [address] [place] [phone] Social History Tobacco Use Types Packs/Day Years [...] any clubs o r organizations such as muslim groups, unions, fraternal or athletic groups, or [...] Answer Date Recorded PHQ-2 Score 5 01/25/2019 [facility] [place] of Occupat ional Health - Occupational Stress [...] Contact Info) Description 09/25/2023 3:00 PM MANAGER FRONT OFFICE External Outreach Division of Nephrology and Hypertension in [place], [place] [address] [place] [phone] Eddie Sheffield Jr., D.O. [address] [place] [phone] Arrived 12/04/2023 10:30 AM CDT Clinical Communication Virtual Review in [place], [place] 200 [place] [address] 12/06/2023 7:40 AM CDT Lab Department of Laboratory Medicine and Pathology, [place], [place] [address] [place] [phone] Jemal Murrell M.B.B.S., MYudy [address] [place] [phone] 12/06/2023 8:00 AM CDT Appointment Department of Radiology, [place], [place] [address] [place] [phone] Jemal Murrell M.B.B.S., MYudy [address] [place] [phone] 12/06/2023 9:20 AM CDT Appointment Department of Radiology, [facility] in [place], [place] [address] [place] [phone] Jemal Murrell M.B.B.S., MYudy [address] [place] [phone] 12/06/2023 10:00 AM CDT Appointment Department of Radiology, [facility], in [place], [place] [address] [place] [address] Jemal Murrell M.B.B.S., M.D. [address] [place] [phone] 12/06/2023 1:30 PM CDT Office Visit Division of Endocrinology in [place], [place] [address] [place] [phone] Zara Garvey APRN, C.N.P., D.N.P. [address] [place] [phone] documented as of this encounter Results * US Aorta (04/25/2023 [...] Visit Diagnoses Diagnosis Aneurysm Abdominal Aortic Personal History- Primary Aneurysm Abdominal Aortic Personal History documented in this encounter Additional Health Concerns Assessment Noted Time PHQ-9 Depression Total Score: 5 03/06/20 18 6:00 PM CDT documented as of this encounter Care Teams Claims Collector Relationship Specialty Start Date End Date Elsewhere, Pcp PCP - General Internal Medicine 09/13/22 documented as of this encounter
--- OUTSIDE RECORDS SUMMARY | 2023-09-25 09:02 | XMS_ITS | Encounter Summary ---
Author Name Unknown Organization [facility] Address [address] [place] [address] Care Team Providers Care Heating And Ventilating Tender Name Role Phone Elsewhere, Pcp Primary Care Provider Unavailabl e Encounter Details Date Type Department Care Team (Late st Contact Info) Description 02/17/2023 Clinical Communication Department of Cardiovascular Medicine in [place], [place] [address] [place] [phone] Devi Stafford, ROSAURA, C.N.P., M.S.N. [address] [place] [phone] Social History Tobacco Use Types Packs/Day Years [...] often do you attend chur ch or caodaism services? 1 to 4 times per year 08/07/2022 Do you belong to any clubs o r organizations such as spiritism groups, unions, fraternal or athletic groups, or [...] Answer Date Recorded PHQ-2 Score 5 01/25/2019 [facility] Questionnaire Answer Date Recorded [...] st Contact Info) Description 09/25/2023 3:00 PM PATROL JUDGE External Outreach Division of Nephrology and Hypertension in [place], [place] 200 [place] [address] Eddie Sheffield Jr., D.O. [address] [place] [address] Arrived 12/04/2023 10:30 AM CDT Clinical Communication Virtual Review in [place], [place] 200 [place] [address] 12/06/2023 7:40 AM CDT Lab Department of Laboratory Medicine and Pathology, [facility] in [place], [place] [address] [place] [phone] Jemal Murrell M.B.B.S., Alek [address] [place] [phone] 12/06/2023 8:00 AM CDT Appointment Department of Radiology, [facility] in [place], [place] [address] [place] [phone] Jemal Murrell M.B.B.S., Alek [address] [place] [phone] 12/06/2023 9:20 AM CDT Appointment Department of Radiology, [facility] in [place], [place] [address] [place] [address] Jemal Murrell M.B.B.S., Alek [address] [place] [phone] 12/06/2023 10:00 AM CDT Appointment Department of Radiology, [facility], in [place], [place] [address] [place] [phone] Jemal Murrell M.B.B.S., Alek [address] [place] [phone] 12/06/2023 1:30 PM CDT Office Visit Division of Endocrinology in [place], [place] [address] [place] [phone] Zara Garvey APRN, C.N.P., D.N.P. [address] [place] [phone] documented as of this encounter Visit Diagnoses Diagnosis Aneurysm Abdominal Aortic Personal History- Primary documented in this encounter Additional Health Concerns Assessment Noted Time PHQ-9 Depression Total Score: 5 03/06/20 18 6:00 PM CDT documented as of this encounter Care Teams Heating And Ventilating Tender Relationship Specialty Start Date End Date Elsewhere, Pcp PCP - General Internal Medicine 09/13/22 documented as of this encounter
--- OUTSIDE RECORDS SUMMARY | 2023-09-25 09:02 | XMS_ITS | Encounter Summary ---
Author Name Unknown Organization [facility] Address [address] [place] [address] Care Team Providers Care Event Producer Name Role Phone Elsewhere, Pcp Primary Care Provider Unavailabl e Encounter Details Date Type Department Care Team (Latest Contact Info) Description 02/01/2023 8:28 AM CDT - 02/01/2023 11:59 PM CDT Hospital Encounter Department of Laboratory Medicine and Pathology, [facility] in [place], [place] [address] [place] [phone] Jemal Murrell M.B.B.S., MMary. [address] [place] [phone] Malignant Neoplasm Of Thyroid Papillary (HCC) Discharge Disposition: Home or Self Care [...] How often do you attend chur or latter-day services? 1 to 4 times per year [...] Answer Date Recorded PHQ-2 Score 5 01/25/2019 [facility] of Occupat ional Health - Occupational Stress [...] place to sleep or slept in a residential (including now)? No 08/07/2022 Nutrition Answer Date [...] 1 tablet by mouth daily. Centrum (per broadcaster) 0 10/09/2017 omeprazole (PriLOSEC) [address] [...] 03/18/2022 05/17/2023 documented as of this encounter Miscellaneous Notes * Result Encounter Note - Jemal Murrell M.B.BDavisSDavis - 02/02/2023 11:17 AM CDT Mr. Garcia It was great seeing you yesterday. Your Tg went up mildly to 2.9. I would recommend getting the follow up in about 6 months with the repeat CT scan and blood work up instead of a year. You can call the team and get the appointment scheduled about 2 months before. Thanks, Leonard YUN. documented in this encounter Plan of Treatment Upcoming Encounters Date Type Department Care Team (Late st Contact Info) Description 09/25/2023 3:00 PM PRINTING TECHNICIAN External Outreach Division of Nephrology and Hypertension in [place], [place] [address] [place] [phone] Eddie Sheffield Jr., D.O. [address] [place] [phone] Arrived 12/04/2023 10:30 AM CDT Clinical Communication Virtual Review in [place], [place] 200 [place] [address] 12/06/2023 7:40 AM CDT Lab Department of Laboratory Medicine and Pathology, [place], [place] [address] [place] [phone] Jemal Murrell M.B.B.S., Alek [address] [place] [phone] 12/06/2023 8:00 AM CDT Appointment Department of Radiology, [facility] in [place], [place] [address] [place] [phone] Jemal Murrell M.B.B.S., Alek [address] [place] [phone] 12/06/2023 9:20 AM CDT Appointment Department of Radiology, [facility] in [place], [place] [address] [place] [address] Jemal Murrell M.B.B.S., M.D. [address] [place] [phone] 12/06/2023 10:00 AM CDT Appointment Department of Radiology, [facility], in [place], [place] [address] [place] [phone] Jemal Murrell M.B.B.S., M.D. [address] [place] [phone] 12/06/2023 1:30 PM CDT Office Visit Division of Endocrinology in [place], [place] [address] [place] [phone] Zara Garvey APRN, C.N.P., D.N.P. [address] [place] [phone] documented as of this encounter Procedures Procedure Name Priority Date/Time Associated Diagnosis Comments [place] THYROGLOBULIN SERUM Routine 8:38 AM CDT THYROGLOBULIN, TM, REFLEX TO LC-MS/MS OR IMMUNOASSAY, S Routine 02/01/2023 8:38 AM CDT Malignant Neoplasm Of Thyroid Papillary (HCC) THYROID-STIMULATING HORMONE-SENSITIVE (S-TSH) Routine 02/01/2023 8:38 AM CDT Malignant Neoplasm Of Thyroid Papillary (HCC) T4 (THYROXINE), FREE, S Routine 02/01/2023 8:38 AM CDT Malignant Neoplasm Of Thyroid Papillary (HCC) documented in this encounter Results * (ABNORMAL) Thyroglobulin, Tumor Marker by Immunoassay (02/01/2023 8:38 AM CDT) Thyroglobulin, Tumor Marker, IA 2.9(H) ng/mL 02/01/2023 4:[address] [facility] Comment: ----REFERENCE VALUE---- Athyrotic <0.1 Intact Thyroid <=33 Thyroglobulin Interpretation SEE COMMENT 02/01/2023 4:[address] [facility] Comment: Thyroglobulin (Tg) levels must be interpreted in the context of TSH levels, serial Tg measurements and radioiodine ablation status. ??Tg levels of 2.1-9.9 ng/mL in athyrotic individuals on suppressive therapy indicate an increased risk of clinically detectable recurrent papillary/follicular thyroid cancer. ----ADDITIONAL INFORMATION---- PLEASE NOTE: The given cutoff of <1.8 IU/mL is for the detection of potential thyroglobulin antibody (TgAb) interference in thyroglobulin immunoassays. Thyroglobulin flagging is based on athyrotic reference values. A thyroglobulin antibody (TgAb) reference cutoff of <4.0 IU/mL may be more suitable for the evaluation of autoimmune thyroiditis. The thyroglobulin and thyroglobulin antibody testing methods are immunoenzymatic assays manufactured by [employer] and performed on the zappit DXI 800. Values obtained from different assay methods or kits may be different and cannot be used interchangeably. The results cannot be interpreted as absolute evidence for the presence or absence of malignant disease. Blood 02/01/2023 8:38 AM CDT 02/01/2023 2:39 PM CDT Jemal Garcia, MYudy L AB BLOOD NON ADD-ON [facility] [address] [place] [address] [facility] [address] [place] [address] * Thyroglobulin, Tumor Marker Reflex to LC-MS/MS or Immunoassay (02/01/2023 8:38 AM CDT) Thyroglobulin Antibody, S <1.8 <1.8 IU/mL 02/01/2023 3:[address] [facility] Comment: Thyroglobulin Antibody < 1.8 IU/mL. Thyroglobulin performed by Immunoassay to follow. Blood (Blood, Venous) 02/01/2023 8:38 AM CDT 02/01/2023 2:39 PM CDT Jemal Garcia M.D. L AB BLOOD NON ADD-ON [facility] [address] [place] [address] [facility] [address] [place] [place] [address] * (ABNORMAL) T4 (Thyroxine), Free (02/01/2023 8:38 AM CDT) T4 (Thyroxine), Free, S 2.2(H) 0.9 - 1.7 ng/dL 02/01/2023 9:46 AM CDT DTL Blood (Blood, Venous) 02/01/2023 8:38 AM CDT 02/01/2023 9:12 AM CDT Jemal Garcia M.D. L AB BLOOD ADD-ON [facility] [address] [place] [address], [facility] [address] [place] [address] * S-TSH (Thyroid-Stimulating Hormone - Sensitive) (02/01/2023 8:38 AM CDT) TSH, Sensitive 0.3 0.3 - 4.2 mIU/L 02/01/2023 9:46 AM CDT DTL Blood (Blood, Venous) 02/01/2023 8:38 AM CDT 02/01/2023 9:12 AM CDT Alek Edward AB BLOOD ADD-ON [facility] [address] [place] [address], [facility] [address] [place] [address] documented in this encounter Visit Diagnoses Diagnosis Malignant Neoplasm Of Thyroid Papillary (HCC) documented in this encounter Additional Health Concerns Assessment Noted Time PHQ-9 Depression Total Score: 5 03/06/20 18 6:00 PM CDT documented as of this encounter Care Teams Event Producer Relationship Specialty Start Date End Date Elsewhere, Pcp PCP - General Internal Medicine 09/13/22 documented as of this encounter
--- OUTSIDE RECORDS SUMMARY | 2023-09-25 09:02 | XMS_ITS | Encounter Summary ---
Author Name Unknown Organization [facility] Address [address] [place] [address] Care Team Providers Care Records Section Supervisor Name Role Phone Elsewhere, Pcp Primary Care Provider Unavailabl e Reason for Referral * MRI/CAT/PET Scan (Routine) - Closed Specialty Diagnoses / Procedures Referred By Jessica patel Referred To Contact Radiology Diagnoses Malignant Neoplasm Of Thyroid Papillary (HCC) Procedures CT Chest without IV Contrast Jemal Murrell M.B.B.S., M.D. [address] [place] [phone] [facility] Referral ID Status Reason Start Date Expiration Date Visits Re quested Visits Authorized [id number] Closed 01/11/2023 02/10/2023 1 1 Reason for Visit * MRI/CAT/PET Scan (Routine) - Closed Specialty Diagnoses / Procedures Referred By Jessica patel Referred To Contact Radiology Diagnoses Malignant Neoplasm Of Thyroid Papillary (HCC) Procedures CT Chest without IV Contrast Jemal Murrell M.B.B.S., Alek [address] [place] [phone] [facility] Referral ID Status Reason Start Date Expiration Date Visits Re quested Visits Authorized [id number] Closed 01/11/2023 02/10/2023 1 1 Encounter Details Date Type Department Care Team (Latest Contact Info) Description 02/01/2023 8:09 AM CDT - 02/01/2023 8:27 AM CDT Hospital Encounter Department of Radiology, [facility], in [place], [place] [address] [place] [address] Jemal Murrell M.B.B.S., M.D. [address] [place] [address] Malignant Neoplasm Of Thyroid Papillary (HCC) Discharge [...] often do you attend chur ch or sabianist services? 1 to 4 times per year 08/07/2022 Do you belong to any clubs o r organizations such as zoroastrian groups, unions, fraternal or athletic groups, or [...] Answer Date Recorded PHQ-2 Score 5 01/25/2019 [facility] - [...] place to sleep or slept in a group home (including now)? No 08/07/2022 Nutrition Answer [...] 1 tablet by mouth daily. Centrum (per card hanger) 0 10/09/2017 omeprazole (PriLOSEC) 20 mg capsuleIndications:Ga [...] st Contact Info) Description 09/25/2023 3:00 PM WEAVING PROFESSOR External Outreach Division of Nephrology and Hypertension in [place], [place] [address] [place] [phone] Eddie Sheffield Jr., D.O. [address] [place] [phone] Arrived 12/04/2023 10:30 AM CDT Clinical Communication Virtual Review in [place], [place] 200 [place] [address] 12/06/2023 7:40 AM CDT Lab Department of Laboratory Medicine and Pathology, [facility] in [place], [place] [address] [place] [phone] Jemal Murrell M.B.BDavisSDavis, MMary. [address] [place] [phone] 12/06/2023 8:00 AM CDT Appointment Department of Radiology, [facility], in [place], [place] [address] [place] [phone] Jemal Murrell M.B.B.S., Alek [address] [place] [phone] 12/06/2023 9:20 AM CDT Appointment Department of Radiology, [facility] in [place], [place] [address] [place] [phone] Jemal Murrell M.B.B.S., Alek [address] [place] [phone] 12/06/2023 10:00 AM CDT Appointment Department of Radiology, [facility] in [place], [place] [address] [place] [phone] Jemal Murrell M.B.B.S., Alek [address] [place] [phone] 12/06/2023 1:30 PM CDT Office Visit Division of Endocrinology in [address] [phone] Zara Garvey APRN, C.N.P., D.N.P. [address] [place] [phone] documented as of this encounter Procedures Procedure Name Priority Date/Time Associated Diagnosis Comments CT CHEST WITHOUT IV CONTRAST RAD - Routine (most inpatients and all outpatients) 02/01/2023 8:17 AM CDT Malignant Neoplasm Of Thyroid Papillary (HCC) documented in this encounter Results * CT Chest without IV Contrast (02/01/2023 8:17 AM CDT) Anatomical Region Laterality Modality Chest, Thoracic RST LOS, Tho racic ARZ LOS, Thoracic FLA LOS N/A Computed Tomography, Compute d Tomography 02/01/2023 8:58 AM CDT Impressions 02/01/2023 9:21 AM CDT 1. Multiple bilateral solid noncalcified new pulmonary nodules are worrisome for metastases. 2. Additional clustered nodularities are likely of infectious/inflammatory etiology. 3. Status post composite aortic valve graft replacement with interval slightly enlargement of the excluded ascending aortic aneurysm, detailed in the body of the report. 4. Additional findings are detailed in the body of the report. Narrative 02/01/2023 9:21 AM CDT EXAM: CT CHEST WITHOUT IV CONTRAST COMPARISON: 03/19/2017 and 03/05/2018 FINDINGS: Previously seen pulmonary edema and bilateral pleural effusions have resolved, revealing multiple bilateral solid noncalcified new pulmonary nodules on series 3, for example, 6 mm right lower lobe nodule on image 461, 6 mm left lower lobe nodule on image 273, 5 mm medial right upper lobe nodule on image 227, 3 mm right middle lobe nodule on image 337. Clustered nodularities, for example, on images 473-554 of series 3, should be of infectious/inflammatory etiology. Lower lobe predominant scars and atelectases. Upper lobe predominant centrilobular and paraseptal emphysema are again identified. The central tracheobronchial tree is patent. Status post sternotomy and composite aortic valve graft conduit replacement. The excluded ascending aortic aneurysm has slightly increased with the collective aneurysm-ascending aorta measuring approximately 10.5 x 9 cm compared with previous measurements of 10 x 8.7 cm (remeasured on the 03/05/2018 CT). No mediastinal stranding or abnormal densities to suggest the presence of rupture. Similar aortic and coronary artery calcifications. Similar single-chamber pacer wire. Multichamber cardiomegaly is again identified. Surgically absent thyroid. Similar presumably reactive enlarged mediastinal nodes measuring up to 1.3-1.4 cm inferior left lower paratracheal region on series 3 image 189. Small sliding esophageal hiatal hernia is unchanged. A new tiny density along the hepatic dome on series 3 image 441 is nonspecific but of dubious significance. Status post cholecystectomy. Several left renal exophytic lesions are presumably cysts. Similar mild dextrocurvature and degenerative changes of the spine. ??No new aggressive osseous lesions identified. Scattered tiny sclerotic foci should be bone islands. 3D maximum intensity projection (MIP) images were created on a dependent workstation as ordered by the treating provider and reviewed by the radiologist to increase sensitivity for detection of pulmonary nodules. Procedure Note Km Dial M.D. - 02/01/2023 EXAM: CT CHEST WITHOUT IV CONTRAST COMPARISON: 03/19/2017 and 03/05/2018 FINDINGS: Previously seen pulmonary edema and bilateral pleural effusions haveresolved, revealing multiple bilateral solid noncalcified new pulmonary nodules on series 3, forexample, 6 mm right lower lobe nodule on image 461, 6 mm left lower lobe nodule on image 273, 5 mm medialright upper lobe nodule on image 227, 3 mm right middle lobe nodule on image 337. Clusterednodularities, for example, on images 473-554 of series 3, should be of infectious/inflammatory etiology.Lower lobe predominant scars and atelectases. Upper lobe predominant centrilobular and paraseptalemphysema are again identified. The central tracheobronchial tree is patent. Status post sternotomy and composite aortic valve graft conduitreplacement. The excluded ascending aortic aneurysm has slightly increased with the collectiveaneurysm-ascending aorta measuring approximately 10.5 x 9 cm compared with previous measurements of 10 x 8.7cm (remeasured on the 03/05/2018 CT). No mediastinal stranding or abnormal densities to suggestthe presence of rupture. Similar aortic and coronary artery calcifications. Similar single-chamberpacer wire. Multichamber cardiomegaly is again identified. Surgically absent thyroid. Similar presumably reactive enlarged mediastinal nodes measuring up to1.3-1.4 cm inferior left lower paratracheal region on series 3 image 189. Small sliding esophageal hiatal hernia is unchanged. A new tiny density along the hepatic dome on series 3 image 441 isnonspecific but of dubious significance. Status post cholecystectomy. Several left renal exophyticlesions are presumably cysts. Similar mild dextrocurvature and degenerative changes of the spine. Nonew aggressive osseous lesions identified. Scattered tiny sclerotic foci should be boneislands. 3D maximum intensity projection (MIP) images were created on a dependentworkstation as ordered by the treating provider and reviewed by the radiologist to increasesensitivity for detection of pulmonary nodules. IMPRESSION: 1. Multiple bilateral solid noncalcified new pulmonary nodules areworrisome for metastases. 2. Additional clustered nodularities are likely of infectious/inflammatoryetiology. 3. Status post composite aortic valve graft replacement with intervalslightly enlargement of the excluded ascending aortic aneurysm, detailed in the body of the report. 4. Additional findings are detailed in the body of the report. Jemal Garcia, Alek I MG CT PROCEDURES documented in this encounter Visit Diagnoses Diagnosis Malignant Neoplasm Of Thyroid Papillary (HCC) documented in this encounter Additional Health Concerns Assessment Noted Time PHQ-9 Depression Total Score: 5 03/06/20 18 6:00 PM CDT documented as of this encounter Care Teams Records Section Supervisor Relationship Specialty Start Date End Date Elsewhere, Pcp PCP - General Internal Medicine 09/13/22 documented as of this encounter
--- OUTSIDE RECORDS SUMMARY | 2023-09-25 09:02 | XMS_ITS | Encounter Summary ---
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 [address] [place] [phone] [place] on pacemaker Social History Tobacco Use Types Packs/Day Years [...] often do you attend chur ch or anabaptist services? 1 to 4 times per year 08/07/2022 Do you belong to any clubs o r organizations such as methodist groups, unions, fraternal or athletic groups, or [...] Answer Date Recorded PHQ-2 Score 5 01/25/2019 [facility] Questionnaire Answer Date [...] place to sleep or slept in a snf (including now)? No 08/07/2022 Nutrition Answer Date [...] encounter Miscellaneous Notes * Telephone Encounter - Sindy Singer, R.N. - 03/23/2023 1:34 PM CDT Images from the original note were not included. Good afternoon, Upon routine device check it was noted that there was 1 VT event 02/14/23. EGM shows 3 PVC then monomorphic VT for 11 beats at 200bpm. I was unable to contact patient regarding any associated symptoms.Device reports this is only the 3 event since implant 10/09/2017. Routine transmissions will continue. documented in this encounter Plan of Treatment Upcoming Encounters Date Type Department Care Team (Late st Contact Info) Description 09/25/2023 3:00 PM SCREW MACHINE OPERATOR SWISS TYPE External Outreach Division of Nephrology and Hypertension in [place], [place] [address] [place] [phone] Eddie Sheffield Jr., D.O. [address] [place] [phone] Arrived 12/04/2023 10:30 AM CDT Clinical Communication Virtual Review in [place], [place] 200 [place] [address] 12/06/2023 7:40 AM CDT Lab Department of Laboratory Medicine and Pathology, [facility] in [place], [place] [address] [place] [phone] Jemal Murrell M.B.B.S., Alek [address] [place] [phone] 12/06/2023 8:00 AM CDT Appointment Department of Radiology, [facility] in [place], [place] [address] [place] [phone] Jemal Murrell M.B.B.S., MYudy [address] [place] [phone] 12/06/2023 9:20 AM CDT Appointment Department of Radiology, [facility], in [place], [place] [address] [place] [phone] Jemal Murrell M.B.B.S., MYudy [address] [place] [phone] 12/06/2023 10:00 AM CDT Appointment Department of Radiology, [facility], in [place], [place] [address] [place] [phone] Jemal Murrell M.B.B.S., Josselyn. [address] [place] [phone] 12/06/2023 1:30 PM CDT Office Visit Division of Endocrinology in [place], [place] [address] [place] [phone] Zara Garvey APRN, C.N.P., D.N.P. [address] [place] [phone] documented as of this encounter Visit Diagnoses Not on filedocumented in this encounter Additional Health Concerns Assessment Noted Time PHQ-9 Depression Total Score: 5 03/06/20 18 6:00 PM CDT documented as of this encounter Care Teams [employer] Relationship Specialty Start Date End Date Elsewhere, Pcp PCP - General Internal Medicine 09/13/22 documented as of this encounter
--- OUTSIDE RECORDS SUMMARY | 2023-09-25 09:02 | XMS_ITS | Encounter Summary ---
Author Name Unknown Organization [facility] Address [address] [place] [address] Care Team Providers Care Comfort Station Supervisor Name Role Phone Elsewhere, Pcp Primary Care Provider Unavailabl e Reason for Referral * Outpatient (Routine) - Closed Specialty Diagnoses / Procedures Referred By Jessica patel Referred To Contact Diagnoses Malignant Neoplasm Of Thyroid Papillary (HCC) Procedures US Head Neck Soft Tissue Jemal Murrell M.B.B.S., M.D. [address] [place] [phone] [facility] Referral ID Status Reason Start Date Expiration Date Visits Re quested Visits Authorized [id number] Closed 09/14/2022 09/14/2023 1 1 Reason for Visit * Outpatient (Routine) - Closed Specialty Diagnoses / Procedures Referred By Jessica patel Referred To Contact Diagnoses Malignant Neoplasm Of Thyroid Papillary (HCC) Procedures US Head Neck Soft Tissue Jemal Murrell M.B.B.S., M.D. [address] [place] [phone] [facility] Referral ID Status Reason Start Date Expiration Date Visits Re quested Visits Authorized [id number] Closed 09/14/2022 09/14/2023 1 1 Encounter Details Date Type Department Care Team (Latest Contact Info) Description 02/01/2023 6:19 AM CDT - 02/01/2023 8:08 AM CDT Hospital Encounter Department of Radiology, [facility], in [place], [place] [address] [place] [address] Jemal Murrell M.B.B.S., M.D. [address] [place] [address] Malignant Neoplasm Of Thyroid Papillary (HCC) Discharge [...] often do you attend chur ch or yazidism services? 1 to 4 times per year 08/07/2022 Do you belong to any clubs o r organizations such as gnosticist groups, unions, fraternal or athletic groups, or [...] Answer Date Recorded PHQ-2 Score 5 01/25/2019 [facility] - [...] 1 tablet by mouth daily. Centrum (per strawhat sizer) 0 10/09/2017 omeprazole (PriLOSEC) [address] [...] st Contact Info) Description 09/25/2023 3:00 PM SUPERVISOR BILLPOSTING External Outreach Division of Nephrology and Hypertension in [place], [place] [address] [place] [phone] Eddie Sheffield Jr., D.O. [address] [place] [phone] Arrived 12/04/2023 10:30 AM CDT Clinical Communication Virtual Review in [place], [place] 200 [place] [address] 12/06/2023 7:40 AM CDT Lab Department of Laboratory Medicine and Pathology, [place], [place] [address] [place] [phone] Jemal Murrell M.B.B.S., M.Kiko. [address] [place] [phone] 12/06/2023 8:00 AM CDT Appointment Department of Radiology, [facility] in [place], [place] [address] [place] [phone] Jemal Murrell M.B.B.S., Alek [address] [place] [phone] 12/06/2023 9:20 AM CDT Appointment Department of Radiology, [facility] in [place], [place] [address] [place] [phone] Jemal Murrell M.B.B.S., Alek [address] [place] [phone] 12/06/2023 10:00 AM CDT Appointment Department of Radiology, [facility] in [place], [place] [address] [place] [phone] Jemal Murrell M.B.B.S., Alek [address] [place] [phone] 12/06/2023 1:30 PM CDT Office Visit Division of Endocrinology in [place], [place] [address] [place] [phone] Zara Garvey, ROSAURA, C.N.P., D.N.P. [address] [place] [phone] documented as of this encounter Procedures Procedure Name Priority Date/Time Associated Diagnosis Comments US HEAD NECK SOFT TISSUE RAD - Routine (most inpatients and all outpatients) 02/01/2023 7:57 AM CDT Malignant Neoplasm Of Thyroid Papillary (HCC) documented in this encounter Results * US Head Neck Soft Tissue (02/01/2023 7:57 AM CDT) Anatomical Region Laterality Modality Head and Neck, Ultrasound RS T LOS, Ultrasound ARZ LOS, Ultrasound FLA LOS N/A Ultrasound 02/01/2023 8:00 AM CDT Impressions 02/01/2023 8:10 AM CDT 1. Stable exam. Specifically, no significant change in the tiny bilateral avascular thyroid bed nodules. 2. No cervical adenopathy. Narrative 02/01/2023 8:10 AM CDT EXAM: US HEAD NECK SOFT TISSUE COMPARISON: Ultrasound 09/06/2022, 06/29/2021, 06/11/2020. FINDINGS: Status post thyroidectomy for papillary thyroid carcinoma performed 04/18/2018. RIGHT: Again seen is an approximately 5 x 3 x 6 mm avascular nodule in the upper right level 6 thyroid bed which is not significantly changed dating back to at least ultrasound 06/29/2021 after accounting for slight differences in technique. No new or concerning right thyroid bed nodules. LEFT: Again seen is an approximately 2 x 6 x 7 mm avascular slender nodule/lymph node in the lower left level 6 thyroid bed which is not significantly changed dating back to 06/29/2021 after accounting for slight differences in technique. No new or concerning left thyroid bed nodules. Lymph nodes: ??Neck levels 1-7 were surveyed and demonstrated no cervical adenopathy. Procedure Note Garrick Bryan M.D. - 02/01/2023 EXAM: US HEAD NECK SOFT TISSUE COMPARISON: Ultrasound 09/06/2022, 06/29/2021, 06/11/2020. FINDINGS: Status post thyroidectomy for papillary thyroid carcinoma qemcdoxaw66/05/2018. RIGHT: Again seen is an approximately 5 x 3 x 6 mm avascular nodule in the upperright level 6 thyroid bed which is not significantly changed dating back to at least prfiycfaib80/16/2021 after accounting for slight differences in technique. No new or concerning right thyroid bed nodules. LEFT: Again seen is an approximately 2 x 6 x 7 mm avascular slender nodule/lymphnode in the lower left level 6 thyroid bed which is not significantly changed dating back to06/29/2021 after accounting for slight differences in technique. No new or concerning left thyroid bed nodules. Lymph nodes: Neck levels 1-7 were surveyed and demonstrated no cervicaladenopathy. IMPRESSION: 1. Stable exam. Specifically, no significant change in the tiny bilateralavascular thyroid bed nodules. 2. No cervical adenopathy. Mahariel Garcia, Alek I MG US PROCEDURES documented in this encounter Visit Diagnoses Diagnosis Malignant Neoplasm Of Thyroid Papillary (HCC) documented in this encounter Additional Health Concerns Assessment Noted Time PHQ-9 Depression Total Score: 5 03/06/20 18 6:00 PM CDT documented as of this encounter Care Teams Comfort Station Supervisor Relationship Specialty Start Date End Date Elsewhere, Pcp PCP - General Internal Medicine 09/13/22 documented as of this encounter
--- OUTSIDE RECORDS SUMMARY | 2023-09-25 09:03 | XMS_ITS | Encounter Summary ---
Author Name Unknown Organization [facility] Address [address] [place] [address] Care Team Providers Care Inspector Hairspring Name Role Phone Elsewhere, Pcp Primary Care Provider Unavailabl e Encounter Details Date Type Department Care Team (Latest Contact Info) Description 12/20/2022 4:00 AM CDT - 12/20/2022 11:59 PM CDT Hospital Encounter Department of Cardiovascular Diseases in [place], [place] [address] [place] [address] Alexys Kendall M.D. Encounter For Checking And Testing Of Cardiac [...] often do you attend chur ch or jainism services? 1 to 4 times per year 08/07/2022 Do you belong to any clubs o r organizations such as synagogue groups, unions, fraternal or athletic groups, or [...] Date Recorded PHQ-2 Score 5 01/25/2019 [facility] - Occupational Stress Questionnaire Answer Date Recorded [...] 1 tablet by mouth daily. Centrum (per measurer) 0 10/09/2017 omeprazole (PriLOSEC) [address] [...] st Contact Info) Description 09/25/2023 3:00 PM TEMPLATE WORKER External Outreach Division of Nephrology and Hypertension in [place], [place] [address] [place] [phone] Eddie Sheffield Jr., D.O. [address] [place] [address] Arrived 12/04/2023 10:30 AM CDT Clinical Communication Virtual Review in [place], [place] 200 [place] [address] 12/06/2023 7:40 AM CDT Lab Department of Laboratory Medicine and Pathology, [facility] in [place], [place] [address] [place] [phone] Jemal Murrell M.B.B.S., Alke [address] [place] [phone] 12/06/2023 8:00 AM CDT Appointment Department of Radiology, [facility] in [place], [place] [address] [place] [phone] Jemal Murrell M.B.B.S., Alek [address] [place] [phone] 12/06/2023 9:20 AM CDT Appointment Department of Radiology, [facility], in [place], [place] [address] [place] [phone] Jemal Murrell M.B.B.S., Alek [address] [place] [phone] 12/06/2023 10:00 AM CDT Appointment Department of Radiology, [facility] in [place], [place] [address] [place] [phone] Jemal Murrell M.B.B.S., Alek [address] [place] [phone] 12/06/2023 1:30 PM CDT Office Visit Division of Endocrinology in [place], [place] [address] [place] [phone] Zara Garvey APRN, C.N.P., D.N.P. [address] [place] [phone] documented as of this encounter Procedures Procedure Name Priority Date/Time Associated Diagnosis Comments PACER REMOTE FOLLOW UP Routine 12/26/2022 1:58 PM CDT Encounter For Checking And Testing Of Cardiac Pacemaker Pulse Generator Battery documented in this encounter Results * PACER REMOTE FOLLOW UP (12/26/2022 1:58 PM CDT) Date Time Interrogation Session [id number] [facility] Implantable Pulse Generator Manager Production Medtronic [facility] Implantable Pulse Generator Model [id number] Preeti XT SR MRI [facility] Implantable Pulse Generator Serial Number [id number] [facility] Type Interrogation Session Remote [facility] Clinic Name [facility] Implantable Pulse Generator Type Pacemaker [facility] Implantable Pulse Generator Implant Date 20171009 [facility] Implantable Lead Manager Production Medtronic [facility] Implantable Lead Model 4196 Attain Ability MRI SureScan [facility] Implantable Lead Serial Number [id number] [facility] Implantable Lead Implant Date 20171009 [facility] Implantable Lead Polarity Type Bipolar Lead [facility] Implantable Lead Location Detail 1 UNKNOWN [facility] Implantable Lead Special Function Lead length: 88 cm [facility] Implantable Lead Location Left Ventricle [facility] Cholo Setting Mode (NBG Code) VVIR [facility] Cholo Setting Lower Rate Limit 60 {beats}/ min [facility] Cholo Setting Maximum Sensor Rate 130 {beats}/ min [facility] Lead Channel Setting Sensing Polarity Bipolar [facility] Lead Channel Setting Sensing Anode Location Right Ventricle [facility] Lead Channel Setting Sensing Anode Terminal Ring [facility] Lead Channel Setting Sensing Cathode Location Right Ventricle [facility] Lead Channel Setting Sensing Cathode Terminal Tip [facility] Lead Channel Setting Sensing Sensitivity 0.9 mV [facility] Lead Channel Setting Pacing Polarity Bipolar [facility] Lead Channel Setting Pacing Anode Location Right Ventricle [facility] Lead Channel Setting Pacing Anode Terminal Ring [facility] Lead Channel Setting Sensing Cathode Location Right Ventricle [facility] Lead Channel Setting Sensing Cathode Terminal Tip [facility] Lead Channel Setting Pacing Pulse Width 0.4 ms [facility] Lead Channel Setting Pacing Amplitude 2.5 V [facility] Lead Channel Setting Pacing Capture Mode Adaptive [facility] Zone Setting Type Category [...] [facility] Lead Channel Impedance Value 589 ohm [facility] Lead Channel Impedance Value 304 ohm [facility] Lead Channel Sensing Intrinsic Amplitude 18.25 mV [facility] Lead Channel Sensing Intrinsic Amplitude 18.25 mV [facility] Lead Channel Pacing Threshold Amplitude 1.25 V [facility] Lead Channel Pacing Threshold Pulse Width 0.4 ms [facility] Battery Date Time of Measurements [facility] Battery ARTICULATION OFFICER Trigger 2.625 [facility] Battery Remaining Longevity 96 mo [facility] Battery Voltage 3.01 V [facility] Cholo Statistic Date Time Start [facility] Cholo Statistic Date Time End [facility] Cholo Statistic RV Percent Paced 98.41 % [facility] Episode Statistic Recent [...] [facility] Episode Statistic Total Count 2 [facility] Episode Statistic Type Category [...] LAB SYSTEM Anatomical Region Laterality Modality Other 12/21/2022 2:10 PM CDT Narrative 12/27/2022 2:19 PM CDT PURPOSE OF VISIT: Routine remote transmission. PRESENTING EGM: ??HOME CARE CHAPLAIN at 88 bpm. ?? VENTRICULAR ARRHYTHMIAS: ?No new events. BATTERY LONGEVITY: Expected battery longevity trends reviewed and are stable and consistent with device settings and use. SUMMARY: All device function appears normal. FOLLOW UP: Next routine follow-up will be in 3 months via [facility] transmission. DEVICE RN: Medhat Ramirez RN Provider statement: This patient underwent device interrogation. I agree that the device interrogation was medically indicated to provide appropriate care and continue routine device interrogations as indicated. Alexys Kendall M.D. CV IMPLANTABLE CARDIAC DEVICE documented in this encounter Visit Diagnoses Diagnosis Encounter For Checking And Testing Of Cardiac Pacemaker Pulse Generator Battery documented in this encounter Additional Health Concerns Assessment Noted Time PHQ-9 Depression Total Score: 5 03/06/20 18 6:00 PM CDT documented as of this encounter Care Teams Inspector Hairspring Relationship Specialty Start Date End Date Elsewhere, Pcp PCP - General Internal Medicine 09/13/22 documented as of this encounter
--- OUTSIDE RECORDS SUMMARY | 2023-09-25 09:03 | XMS_ITS | Encounter Summary ---
Author Name Unknown Organization [facility] Address [address] [place] [phone] Care Team Providers Care Russian Language Instructor Name Role Phone Elsewhere, Pcp Primary Care Provider Unavailabl e Reason for Visit * Reason Onset Date Comments Pre-visit Intake 01/30/2023 Encounter Details Date Type Department Care Team (Latest Contact Info) Description 01/30/2023 1:00 PM CDT Clinical Communication Virtual Review in [place], [place] 200 [place] [address] Pre-visit Intake Social History Tobacco Use Types [...] often do you attend chur ch or mosque services? 1 to 4 times per year 08/07/2022 Do you belong to any clubs o r organizations such as yazidi groups, unions, fraternal or athletic groups, or [...] Answer Date Recorded PHQ-2 Score 5 01/25/2019 [facility]ational [facility] Questionnaire Answer Date [...] st Contact Info) Description 09/25/2023 3:00 PM PREPRESS TECHNICIAN External Outreach Division of Nephrology and Hypertension in [place], [place] [address] [place] [phone] Eddie Sheffield Jr., D.O. [address] [place] [phone] Arrived 12/04/2023 10:30 AM CDT Clinical Communication Virtual Review in [place], [place] 200 [place] [address] 12/06/2023 7:40 AM CDT Lab Department of Laboratory Medicine and Pathology, [facility] in [place], [place] [address] [place] [phone] Jemal Murrell M.B.B.S., Alek [address] [place] [phone] 12/06/2023 8:00 AM CDT Appointment Department of Radiology, [facility] in [place], [place] [address] [place] [phone] Jemal Murrell M.B.B.S., Alek [address] [place] [phone] 12/06/2023 9:20 AM CDT Appointment Department of Radiology, [facility] in [place], [place] [address] [place] [phone] Jemal Murrell M.B.B.S., Alek [address] [place] [phone] 12/06/2023 10:00 AM CDT Appointment Department of Radiology, [facility] in [place], [place] [address] [place] [phone] Jemal Murrell M.B.B.S., Alek [address] [place] [phone] 12/06/2023 1:30 PM CDT Office Visit Division of Endocrinology in [place], [place] [address] [place] [phone] Zara Garvey APRN, C.N.P., D.N.P. [address] [place] [phone] documented as of this encounter Visit Diagnoses Not on filedocumented in this encounter Additional Health Concerns Assessment Noted Time PHQ-9 Depression Total Score: 5 03/06/20 18 6:00 PM CDT documented as of this encounter Care Teams Russian Language Instructor Relationship Specialty Start Date End Date Elsewhere, Pcp PCP - General Internal Medicine 09/13/22 documented as of this encounter
--- OUTSIDE RECORDS SUMMARY | 2023-09-25 09:03 | XMS_ITS | Encounter Summary ---
Author Name Unknown Organization [facility] Address [address] [place] [address] Care Team Providers Care Equipment Engineering Technician Name Role Phone Elsewhere, Pcp Primary Care Provider Unavailabl e Reason for Visit * Appointment Request (Routine) - Closed Specialty Diagnoses / Procedures Referred By Jessica patel Referred To Contact Nephrology and Hypertension Referral ID Status Reason Start Date Expiration Date Visits Re quested Visits Authorized [id number] Closed 09/23/2022 09/23/2023 1 Encounter Details Date Type Department Care Team (Latest Contact Info) Description 10/10/2022 2:00 PM POST TRONIC MACHINE OPERATOR External Outreach Division of Nephrology and Hypertension in [place], [place] [address] [place] [phone] Eddie Sheffield Jr., D.O. [address] [place] [address] Hypertension And Chronic Kidney Disease Stage 4 (HCC) (Primary Dx); Atrial Fibrillation Permanent (HCC); Hyperparathyroidism Renal Secondary (HCC) Social History Tobacco Use Types Packs/Day [...] How often do you attend chur or pentecostal services? 1 to 4 times per year 08/07/2022 Do you belong to any clubs o r organizations such as mormon groups, unions, fraternal or athletic groups, or [...] Date Recorded PHQ-2 Score 5 01/25/2019 [facility] - Occupational Stress [...] place to sleep or slept in a fdc (including now)? No 08/07/2022 Nutrition Answer Date [...] Sign Reading Time Taken Comments Blood Pressure 166/78 10/10/2022 2:14 PM POST TRONIC MACHINE OPERATOR Pulse 72 10/10/2022 2:14 PM POST TRONIC MACHINE OPERATOR Temperature - - Respiratory Rate - - Oxygen Saturation - - Inhaled Oxygen Concentration - - Weight 72.5 kg (159 lb 13.3 oz) 10/10/2022 2:14 PM POST TRONIC MACHINE OPERATOR Height - - Body Mass Index 25.23 03/22/2022 8:04 AM CDT documented in this encounter Progress Notes * Eddie Sheffield Jr., D.O. - 10/10/2022 2:00 PM CST Referring Provider: DR Victor Hugo Muller SUBJECTIVE REASON FOR VISIT [facility] Follow-up regards CKD, prior history of acute kidney injury with dialysis requirements HISTORY OF PRESENT ILLNESS Mr. Kearney is a 81 y.o. 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 He continues to require oral anticoagulation for his bioprosthetic valve which was placed in November 2016. He is had no issues with bleeding, his INR was 2.0. Has no issues currently he feels well and just underwent a right-sided inguinal hernia repair last week which has healed well. He is no constitutional complaints, and home blood pressures have been in the 130s over 70s. Here in the office, his pressures have been elevated, and today are quite dramatically elevated at 168 systolic. Past Medical History: Diagnosis Date Aftercare Percutaneous Endoscopic Gastrostomy (HCC) Anemia Atrial Fibrillation Unspecified Bundle Branch Block Left Chronic Kidney Disease [...] prior to procedure. (Patient taking differently: Take 4 caps (2000 mg) 1 hour prior to dental procedure.), Disp: 12 capsule, Rfl: 11 aspirin 81 [...] 1 TABLET BY MOUTH EVERY MORNING BEFORE BREAKFAST., Disp: 90 tablet, Rfl: 3 melatonin 3 mg tablet, Take 1 tablet by mouth at bedtime., Disp: , Rfl: multivitamin tablet, Take 1 tablet by mouth daily. Centrum (per field secretary) , Disp: , Rfl: omeprazole (PriLOSEC) [address] capsule, TAKE ONE CAPSULE BY MOUTH ONE TIME DAILY FOR ACID REFLUX, Disp: 100 capsule, Rfl: 3 warfarin (COUMADIN) 1 mg tablet, Take 4-5 tablets by mouth as directed. 4 tabs on Monday/Monday/Monday 3 tabs all other days , Disp: , Rfl: REVIEW OF SYSTEMS All other systems reviewed and are negative. OBJECTIVE BP (!) 166/78 Pulse 72 Wt 72.5 kg BMI 25.23 kg/m?? PHYSICAL EXAMINATION General: Awake alert oriented, hard of hearing HEENT: BRINDA, EOMI, Mucous membranes moist, no oral lesions Neck: No Masses, No Bruits Lungs: Clear to ascultation Heart: Regular Rate and Rhythm, he has a 2/6 systolic rumbling murmur Abdomen: Soft, Non-tender Extremities: No cyanosis, No clubbing: No edema Neuro: Cranial Nerves intact, Gait is normal, strength grossly normal Skin: no suspicious lesions identified Psychiatric: Normal affect DIAGNOSTICS Creatinine 2.0 microalbumin to creatinine ratio 20 milligrams/gram, normal chemistries normal CBC ASSESSMENT / PLAN #1 Hypertension And Chronic Kidney Disease Stage 4 (HCC) His blood pressure is above goals. I am going to switch his metoprolol to carvedilol 25 mg twice daily. His CKD is on the background of previous nephrosclerosis due in part to his acute kidney injury. Goals going forward: 1. Goal blood pressure less than 130/80 2. No NSAIDs or Edward 2 inhibitors 3. Continue on his warfarin 4. Continue to drink at least 40 oz of water per day 5. I will see him back in 6 months. #2 Atrial Fibrillation Permanent (HCC) He is on oral anticoagulation is heart was regular in rhythm today. #3 Hyperparathyroidism Renal Secondary (HCC) Calcium and phosphorus are acceptable Total time: 30 minutes Counseling Time: 25 minutes Eddie Sheffield Jr., D.O. TRONIC MACHINE OPERATOR documented in this encounter Plan of Treatment Upcoming Encounters Date Type Department Care Team (Late st Contact Info) Description 09/25/2023 3:00 PM POST TRONIC MACHINE OPERATOR External Outreach Division of Nephrology and Hypertension in [address] [phone] Eddie Sheffield Jr., D.O. [address] [place] [phone] Arrived 12/04/2023 10:30 AM CDT Clinical Communication Virtual Review in [address] [address] 12/06/2023 7:40 AM CDT Lab Department of Laboratory Medicine and Pathology, [facility] in [address] [phone] Jemal Murrell M.B.B.S., Josselyn. [address] [place] [phone] 12/06/2023 8:00 AM CDT Appointment Department of Radiology, [facility], in [address] [place] [phone] Jemal Murrell M.B.B.S., Alek [address] [place] [phone] 12/06/2023 9:20 AM CDT Appointment Department of Radiology, [facility] in [place], [place] [address] [place] [address] Jemal Murrell M.B.B.S., Alek [address] [place] [phone] 12/06/2023 10:00 AM CDT Appointment Department of Radiology, [facility] in [place], [place] [address] [place] [address] Jemal Murrell M.B.B.S., Alek [address] [place] [phone] 12/06/2023 1:30 PM CDT Office Visit Division of Endocrinology in [place], [place] [address] [place] [phone] Zara Garvey APRN, C.N.P., D.N.P. [address] [place] [phone] documented as of this encounter Visit Diagnoses Diagnosis Hypertension And Chronic Kidney Disease Stage 4 (HCC)- Primary Atrial Fibrillation Permanent (HCC) Hyperparathyroidism Renal Secondary (HCC) documented in this encounter Additional Health Concerns Assessment Noted Time PHQ-9 Depression Total Score: 5 03/06/20 18 6:00 PM CDT documented as of this encounter Care Teams Equipment Engineering Technician Relationship Specialty Start Date End Date Elsewhere, Pcp PCP - General Internal Medicine 09/13/22 documented as of this encounter
== END 2023-09-22 08:11 | disposition home or self-care (01) ==
LOC: NFLDREF 09-25 08:47
PROVIDERS: PCP Family Medicine; Referring Provider Family Medicine; Visit Provider Internal Medicine Nephrology
DX: E78.5 Hyperlipidemia, unspecified (principal); I10 Essential (primary) hypertension; N18.4 Chronic kidney disease, stage 4 (severe)
CPT/HCPCS: 80061; 80069; 82306; 82310; 82728; 83540; 83550; 83970; 84450; 84460; 84550

== ENCOUNTER 2023-11-20 10:00 | Outpatient (CLI) | payer MEDICARE, SELFPAY ==
--- OUTSIDE RECORDS SUMMARY | 2023-11-28 07:49 | XMS_ITS | Clinical Summary ---
Author Name Unknown Organization [facility] Address [address] [place] [address] Care Team Providers Care Fire Alarm Dispatcher Name Role Phone Elsewhere, Pcp Primary Care Provider Unavailabl e Source Comments Patient records contain information from all sites at [facility]. For routine questions regarding patient records, call [phone] during business hours, M-F 8:00 AM - 5:00 PM Central Time. Record requests for emergency care only can be directed to [phone] at any time.[facility] Allergies Active Allergy Reactions Criticality Noted Date [...] daily. for heart failure. Refills per PCP 03/11/2017 Active warfarin (COUMADIN) 1 mg tablet Take 4-5 tablets by mouth as directed. 4 tabs on Monday/Monday/F riday 3 tabs all other days 10/09/2017 Active furosemide (LASIX) 20 mg tablet Take 1 tablet by mouth daily. 09/22/2017 Active melatonin 3 mg tablet Take 1 tablet by mouth at bedtime. 05/23/2017 Active multivitamin tablet Take 1 tablet by mouth daily. Centrum (per senior technical recruiter) 10/09/2017 Active acetaminophen (TYLENOL) 500 mg tablet Take 500-1,000 mg by mouth every 6 (six) hours as needed for pain. Active omeprazole (PriLOSEC) [address] capsuleIndications [...] 2 tablets by mouth daily with breakfast. Active amoxicillin (AMOXIL) 500 mg capsule Take [...] tablet Take 20 mEq by mouth daily. 02/10/2020 Active hydrALAZINE (APRESOLINE) 25 mg tablet TAKE 1 TABLET BY MOUTH THREE TIMES A DAY 270 tablet 3 08/25/2022 Active carvediloL (COREG) 25 mg tablet Take 1 tablet (25 mg total) by mouth 2 (two) times a day with meals. 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 Lead Python Developer nirmala Kidney Disease On Erythropoietin 01/30/2017 Flutter Atrial 01/30/2017 Resolved Problems Problem Noted Date Diagnosed Date Resolved Date Thrombocytopenia 03/06/2018 05/08/2020 Leukopenia 03/06/2018 03/08/2018 Acute Respiratory Failure With Hypoxia 03/05/2018 05/08/2020 Edema Pulmonary Acute 03/05/20182023 Sepsis 03/05/2018 09/25/2023 Palliative Care 07/12/2017 05/08/2020 Chronic Kidney Disease Stage 3 Glomerular Filtration Rate 30 To 59 07/12/2017 10/23/2019 Gastrostomy Percutaneous End oscopic Status Post 01/30/2017 05/08/2020 Chronic Kidney Disease Stage 5 Glomerular Filtration Rate Less Than 15 01/30/2017 10/23/2019 Malnourished 01/30/2017 05/08/2020 Encounters Date Type Department Care Team Description 09/25/2023 3:00 PM CLOTH PRINTING INSPECTOR External Outreach Division of Nephrology and Hypertension in [place], [place] [address] [place] [address] Eddie Sheffield Jr., D.O. Hypertension And Chronic Kidney Disease Stage 4 (HCC) (Primary Dx); Hyperparathyroidism Renal Secondary (HCC); Malignant Neoplasm Of Thyroid Papillary (HCC); Atrial Fibrillation Permanent (HCC); Chronic Systolic (Congestive) Heart Failure (HCC); Anticoagulant Therapy 09/22/2023 4:00 AM CLOTH PRINTING INSPECTOR - 09/22/2023 11:59 PM CLOTH PRINTING INSPECTOR Hospital Encounter Department of Cardiovascular Diseases in [place], [place] [address] [place] [address] Ernesto Xiao M.B., B.Ch., B.A.O. Encounter For Checking And Testing Of Cardiac Pacemaker Pulse Generator Battery Discharge Disposition: Home or Self Care from Last 3 Months Immunizations Name Administration Dates Next Due influenza high dose (65 years or older) (PF) ,05/16/2016 Family History Medical History Relation Name Comments Thyroid disease Daughter Ciara Fregoso Anxiety disorder Mother Josiane Kearney Dementia Mother Josiane Kearney Osteoporosis Mother Josiane [...] often do you attend chur ch or spiritism services? 1 to 4 times per year [...] Answer Date Recorded PHQ-2 Score 5 01/25/2019 [facility] Occupational Stress Questionnaire [...] place to sleep or slept in a mcfp (including now)? No 08/07/2022 Nutrition Answer Date [...] Sign Reading Time Taken Comments Blood Pressure 138/86 09/25/2023 3:03 PM CLOTH PRINTING INSPECTOR Pulse 73 09/25/2023 3:03 PM CLOTH PRINTING INSPECTOR Temperature 36.6 ??C (97.9 ??F) 04/10/2023 10:00 AM C DT Respiratory Rate 16 04/10/2023 6:41 AM CDT Oxygen Saturation 94% 04/10/2023 10:10 AM CDT Inhaled Oxygen Concentration - - Weight 72 kg (158 lb 12.8 oz) 09/25/2023 3:03 PM CLOTH PRINTING INSPECTOR Height 170.1 cm (5' 6.97) 09/25/2023 3:03 PM CS T Body Mass Index 24.89 09/25/2023 3:03 PM CLOTH PRINTING INSPECTOR Plan of Treatment Upcoming Encounters Date Type Department Care Team (Latest Contact Info) Description 12/04/2023 10:30 AM CDT Clinical Communication Virtual Review in [address] [address] 12/06/2023 7:40 AM CDT Lab Department of Laboratory Medicine and Pathology, [address] [phone] Jemal Murrell M.B.B.S., MYudy [address] [place] [phone] 12/06/2023 8:00 AM CDT Appointment Department of Radiology, [address] [phone] Jemal Murrell M.B.B.S., MYudy [address] [place] [phone] Discharge Disposition: Home or Self Care 12/06/2023 9:20 AM CDT Appointment Department of Radiology, [facility], in [place], [place] [address] [place] [address] Jemal Murrell M.B.B.S., Alek [address] [place] [phone] 12/06/2023 10:00 AM CDT Appointment Department of Radiology, [facility] in [place], [place] [address] [place] [address] Jemal Murrell M.B.B.S., Alek [address] [place] [phone] 12/06/2023 1:30 PM CDT Office Visit Division of Endocrinology in [place], [place] [address] [place] [phone] Zara Garvey APRN, C.N.P., D.N.P. [address] [place] [phone] Health Maintenance Due Date Last Done Comments COVID-19 Vaccine (2022-09 4 season) 2023 12/27/2021, 06/09/2021, 10/22/2020, Additional history exists Depression Screening (Annual PHQ-2) 08/14/2023 Fall Risk Screen (Annual) 08/14/2023 Thyroid Stimulating Hormone (TSH) test for thyroid function 02/02/2024 02/01/2023, 09/06/2022, 07/21/2021, Additional history exists Creatinine Level (Kidney Fun ction Test) 05/02/2024 05/02/2023, 05/03/2022, 07/21/2021, Additional history exists Potassium Level 05/02/2024 05/02/2023, 04/15, 07/21/2021, Additional history exists Sodium Level 05/02/2024 05/02/2023, 04/15, 07/21/2021, Additional history exists Office Visit for Blood Press ure Check / Re-check 09/25/2024 09/25/2023 DTaP,Tdap,and Td Vaccines (3 - Td or Tdap) 02/08/2032 02/07/2022, 06/20/2012 Pneumococcal vaccine (65+ years) Completed 09/16/19 15, 06/27/2008 Zoster Vaccines Completed 05/13/2019, 01/21/2019 Influenza Vaccine Completed 06/06/2023, , 05/14/2021, Additional history exists Medical Devices Implanted Type Area Printed Circuit Board Panels Deburrer Device Identifier Shelf Expiration Date Model / Serial / Lot Lead [id number] Salon Leader Attain Ability - Darling [id number] Implanted:Qty: 1 on 10/09/2017 Cardiac Lead Coronary Medtronic / [id number] / Description:Device Manufactu rer - [employer]. Body Location - Other. Coronary Sinus. Device Status Text - CARD LEAD-[id number]. Conversions - Default Historical Implant Device Implanted:03/07 (Quantity not on file) Cardiac Valve Prosthesis Aorta Description:Device Status Te xt - CardValve. pig valve placed on 11-16-2016. Mesh Or Patch-08/14/2022 Implanted:08/14 (Quantity not on file) Mesh or Patch Stomach Description:Hernia Mesh 2 Dental Bridges Misc Other Mouth Description:Upper and Lower Dental Bridge. Pacer Preeti Xt Sr Mri - Darling [id number] Implanted:Qty: 1 on 10/09/2017 Pacemaker Other/Legacy - See Implant Description Medtronic / [id number] / Description:Device Manufactu rer - [employer]. Body Location - Other. Left. Device Status Text - PACEMAKER-[id number]. Vascular Other-08/14/2016 Implanted:08/14 (Quantity not on file) Vascular Other Right: Arm Description:A/V fistula Procedures Procedure Name Priority Date/Time Associated Diagnosis Comments PACER REMOTE FOLLOW UP Routine 09/22/2023 3:09 PM CLOTH PRINTING INSPECTOR Encounter For Checking And Testing Of Cardiac Pacemaker Pulse Generator Battery SODIUM, S/P Routine 05/02/2023 9:28 AM CDT Prosthesis Aortic Valve POTASSIUM, S/P Routine 05/02/2023 9:28 AM CDT Prosthesis Aortic Valve CREATININE WITH EGFR, S/P Routine 05/02/2023 9:28 AM CDT Prosthesis Aortic Valve THYROID-STIMULATING HORMONE-SENSITIVE (S-TSH) Routine 02/01/2023 8:38 AM CDT Malignant Neoplasm Of Thyroid Papillary (HCC) from Last 3 Months or Most Recently Relevant to Health Maintenance Results * PACER REMOTE FOLLOW UP (09/22/2023 3:09 PM CLOTH PRINTING INSPECTOR) Date Time Interrogation Session [id number] [facility] Implantable Pulse Generator Printed Circuit Board Panels Deburrer Medtronic [facility] Implantable Pulse Generator Model [id number] Preeti XT SR MRI [facility] Implantable Pulse Generator Serial Number [id number] [facility] Type Interrogation Session Remote [facility] Clinic Name [facility] Implantable Pulse Generator Type Pacemaker [facility] Implantable Pulse Generator Implant Date [id number] [facility] Implantable Lead Printed Circuit Board Panels Deburrer Medtronic [facility] Implantable Lead Model [id number] Attain Ability MRI SureScan [facility] Implantable Lead Serial Number [id number] [facility] Implantable Lead Implant Date [id number] [facility] Implantable Lead Polarity Type Bipolar Lead [facility] Implantable Lead Location Detail 1 UNKNOWN [facility] Implantable Lead Special Function Lead length: 88 cm [facility] Implantable Lead Location Left Ventricle [facility] Cholo Setting Mode (NBG Code) VVIR [facility] Cholo Setting Lower Rate Limit 60 {beats}/ min [facility] Cholo Setting Maximum Sensor Rate 130 {beats}/ min [facility] Lead Channel Setting Sensing Polarity Bipolar [facility] Lead Channel Setting Sensing Anode Location Right Ventricle [facility] Lead Channel Setting Sensing Anode Terminal Ring [facility] Lead Channel Setting Sensing Cathode Location Right Ventricle [facility] Lead Channel Setting Sensing Cathode Terminal Tip [facility] Lead Channel Setting Sensing Sensitivity 0.9 mV [facility] Lead Channel Setting Pacing Polarity Bipolar [facility] Lead Channel Setting Pacing Anode Location Right Ventricle [facility] Lead Channel Setting Pacing Anode Terminal Ring [facility] Lead Channel Setting Sensing Cathode Location Right Ventricle [facility] Lead Channel Setting Sensing Cathode Terminal Tip [facility] Lead Channel Setting Pacing Pulse [...] [facility] Lead Channel Impedance Value 779 ohm [facility] Lead Channel Impedance Value 342 ohm [facility] Lead Channel Sensing Intrinsic Amplitude 19 mV [facility] Lead Channel Sensing Intrinsic Amplitude 19 mV [facility] Lead Channel Pacing Threshold Amplitude 0.875 V [facility] Lead Channel Pacing Threshold Pulse Width 0.4 ms [facility] Battery Date Time of Measurements [facility] Battery CLINICAL TRIALS MANAGER Trigger 2.625 [facility] Battery Remaining Longevity 89 mo [facility] Battery Voltage 3.00 V [facility] Cholo Statistic Date Time Start [facility] Cholo Statistic Date Time End [facility] Cholo Statistic RV Percent Paced 99.03 % [facility] Episode Statistic Recent [...] SYSTEM Episode Statistic Recent Date Time End [id number] [facility] Episode Statistic Recent Date Time Start [id number] [facility] Episode Statistic Recent Date [...] SYSTEM Episode Statistic Total Date Time Start [id number] [facility] Episode Statistic Total Date Time End [id number] [facility] Episode Statistic Total Date Time Start [id number] [facility] Episode Statistic Total Date Time End [id number] [facility] Episode Statistic Total Date Time Start [facility] Episode Statistic Total Date Time End [id number] [facility] Anatomical Region Laterality Modality Other 09/21/2023 10:5 2 PM CLOTH PRINTING INSPECTOR Narrative 09/25/2023 4:10 PM CLOTH PRINTING INSPECTOR PURPOSE OF VISIT: ??Routine remote transmission. PRESENTING EGM: ??BEVERAGE SERVER at 60 bpm with a PVC. VENTRICULAR ARRHYTHMIAS: ?No new events. BATTERY LONGEVITY: Expected battery longevity trends reviewed and are stable and consistent with device settings and use. SUMMARY: All device function appears normal. FOLLOW UP: Next routine follow-up will be in 3 months via [facility] transmission. DEVICE RN: Medhat Raimrez RN Provider statement: This patient underwent device interrogation. I agree that the device interrogation was medically indicated to provide appropriate care and continue routine device interrogations as indicated. Ernesto Orellana, BDaniele., B.A.O. CV IMP LANTABLE CARDIAC DEVICE * Sodium (05/02/2023 9:28 AM CDT) Sodium, S 142 135 - 145 mmol/L 05/02/2023 10:49 AM CDT DTL Blood (Blood, Venous) 05/02/2023 9:28 AM CDT 05/02/2023 10:09 AM CDT Jass Barnard APRN.N.P., M.S.N. LAB BLOOD ADD-ON [facility] [address] [place] [address], [facility] [address] [place] [address] * Potassium (05/02/2023 9:28 AM CDT) Potassium, S 4.7 3.6 - 5.2 mmol/L 05/02/2023 10:49 AM CDT DT Blood (Blood, Venous) 05/02/2023 9:28 AM CDT 05/02/2023 10:09 AM CDT Devi Stafford APRN, C.N.P., M.S.N. LAB BLOOD ADD-ON Performing Organization Address [facility] Co de Phone Number [facility] [address] [place] [address], [facility] [address] [place] [address] * (ABNORMAL) Creatinine with Estimated GFR (05/02/2023 9:28 AM CDT) Creatinine 2.09(H) 0.74 - 1.35 mg/dL 05/02/2023 10:49 AM CDT DTL Estimated GFR (eGFR) 31(L) >=60 mL/min/BSA 05/02/2023 10:49 AM CDT DTL Comment: Estimated GFR calculated using the 2020 CKD_EPI creatinine equation. Blood (Blood, Venous) 05/02/2023 9:28 AM CDT 05/02/2023 10:09 AM CDT Devi Staffrod APRN, C.N.P., M.S.N. LAB BLOOD ADD-ON Performing Organization Address [facility] Co de Phone Number [facility] [address] [place] [address], [facility] [address] [place] [address] * S-TSH (Thyroid-Stimulating Hormone - Sensitive) (02/01/2023 8:38 AM CDT) TSH, Sensitive 0.3 0.3 - 4.2 mIU/L 02/01/2023 9:46 AM CDT DTL Blood (Blood, Venous) 02/01/2023 8:38 AM CDT 02/01/2023 9:12 AM CDT Jemal Garcia, Alek L AB BLOOD ADD-ON [facility] [address] [place] [address], [place] DTL [facility] [address] [place] [address] from Last 3 Months or Most Recently Relevant to Health Maintenance Advance Directives For more information, please contact: [phone] Documents on File Type Date Recorded Patient Elastic Yarn Twister Helper Expl anation Advance Directives 2002 12:00 AM Leg acy document. See document viewer. * Full Code (Latest Code Status on File) Date Activated Date Inactivated Comments 04/10/2023 9:41 AM 04/10/2023 12:37 PM Question Answer Comments Full Code: Discussed * Full Code Date Activated Date Inactivated Comments 04/10/2023 6:15 AM 04/10/2023 9:41 AM Question Answer Comments Full Code: Discussed * Full Code Date Activated Date Inactivated Comments 03/05/2018 8:45 AM 03/09/2018 8:38 PM Question Answer Comments Full Code: Discussed Care Teams Fire Alarm Dispatcher Relationship Specialty Start Date End Date Elsewhere, Pcp PCP - General Internal Medicine 09/13/22
--- OUTSIDE RECORDS SUMMARY | 2023-11-28 07:50 | XMS_ITS ---
Author Name Unknown Organization [facility] Address [address] [place] [address] Care Team Providers Care Male Impersonator Name Role Phone Unavailable Unavailable Unavailable Surgery Details Not on file Complications Check Surgery Details section. Procedure Estimated Blood Loss Check Surgery Details section. Procedure Findings Check Surgery Details section. Procedure Specimens Taken Check Surgery Details section.
--- OUTSIDE RECORDS SUMMARY | 2023-11-28 07:50 | XMS_ITS ---
Author Name Unknown Organization [facility] Address [address] [place] [address] Care Team Providers Care Retail Warehouse Supervisor Name Role Phone Elsewhere, Pcp Primary [...] Papillary 02/10/20 17 Anemia Of Renal Failure Credit Processor nirmala Kidney Disease On Erythropoietin 01/30/2017 Flutter Atrial 01/30/2017 Current Oncology Plans No current plan information found. Past Plans Radiation Treatments * No radiation treatments are documented for this patient in [facility]. Treatments may have been administered in another [...]
--- OUTSIDE RECORDS SUMMARY | 2023-11-28 07:50 | XMS_ITS | Referral Summary ---
Author Name Unknown Organization [facility] Address [address] [place] [address] Care Team Providers Care Cartoon Artist Name Role Phone Elsewhere, Pcp Primary Care Provider Unavailabl e Source Comments Patient records contain information from all sites at [facility]. For routine questions regarding patient records, call [phone] during business hours, M-F 8:00 AM - 5:00 PM Central Time. Record requests for emergency care only can be directed to [phone] at any time.[facility] Encounters Date Type Department Care Team Description 09/25/2023 3:00 PM CIDER PRESS OPERATOR External Outreach Division of Nephrology and Hypertension in [place], [place] [address] [place] [address] Eddie Sheffield Jr., D.O. Hypertension And Chronic Kidney Disease Stage 4 (HCC) (Primary Dx); Hyperparathyroidism Renal Secondary (HCC); Malignant Neoplasm Of Thyroid Papillary (HCC); Atrial Fibrillation Permanent (HCC); Chronic Systolic (Congestive) Heart Failure (HCC); Anticoagulant Therapy 09/22/2023 4:00 AM CIDER PRESS OPERATOR - 09/22/2023 11:59 PM CIDER PRESS OPERATOR Hospital Encounter Department of Cardiovascular Diseases in [place], [place] [address] [place] [address] Ernesto Xiao M.B., B.Ch., B.A.O. Encounter For [...] mouth as directed. 4 tabs on Monday/Monday/ riday 3 tabs all other days 10/09/2017 Active furosemide (LASIX) 20 mg tablet Take 1 tablet by mouth daily. 09/22/2017 Active melatonin 3 mg tablet Take 1 tablet by mouth at bedtime. 05/23/2017 Active multivitamin tablet Take 1 tablet by mouth daily. 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 1 to 4 times per year [...] Score 5 01/25/2019 [facility] - Occupational Stress Questionnaire Answer [...] Comments Blood Pressure 138/86 09/25/2023 3:03 PM CIDER PRESS OPERATOR Pulse 73 09/25/2023 3:03 PM CIDER PRESS OPERATOR Temperature 36.6 ??C (97.9 ??F) 04/10/2023 10:00 AM C DT Respiratory Rate 16 04/10/2023 6:41 AM CDT Oxygen Saturation 94% 04/10/2023 10:10 AM CDT Inhaled Oxygen Concentration - - Weight 72 kg (158 lb 12.8 oz) 09/25/2023 3:03 PM CIDER PRESS OPERATOR Height 170.1 cm (5' 6.97) 09/25/2023 3:03 PM CS T Body Mass Index 24.89 09/25/2023 3:03 PM CIDER PRESS OPERATOR Plan of Treatment Upcoming Encounters Date Type Department Care Team (Latest Contact Info) Description 12/04/2023 10:30 AM CDT Clinical Communication Virtual Review in [place], [place] 200 [place] [address] 12/06/2023 7:40 AM CDT Lab Department of Laboratory Medicine and Pathology, [place], [place] [address] [place] [phone] Jemal Murrell M.B.B.S., MYudy [address] [place] [phone] 12/06/2023 8:00 AM CDT Appointment Department of Radiology, [address] [phone] Jemal Murrell M.B.B.S., MDavisDDavis [address] [place] [phone] Discharge Disposition: Home or Self Care 12/06/2023 9:20 AM CDT Appointment Department of Radiology, [place], [place] [address] [place] [phone] DhanasJemal mcallister M.B.B.S., M.D. [address] [place] [phone] 12/06/2023 10:00 AM CDT Appointment Department of Radiology, [facility], in [place], [place] [address] [place] [address] Jemal Murrell M.B.B.S., M.D. [address] [place] [phone] 12/06/2023 1:30 PM CDT Office Visit Division of Endocrinology in [place], [place] [address] [place] [phone] Zara Garvey APRN, C.N.P., D.N.P. [address] [place] [phone] Medical Devices Implanted Type Area Nutritionalist Device Identifier Shelf Expiration Date Model / Serial / Lot Lead [id number] General Worker Attain Ability - Darling [id number] Implanted:Qty: 1 on 10/09/2017 Cardiac Lead Coronary Medtronic / [id number] / Description:Device Manufactu rer - Ake[employer]. Body Location - Other. Coronary Sinus. Device Status Text - CARD [id number]. Conversions - Default Historical Implant Device Implanted:03/07 (Quantity not on file) Cardiac Valve Prosthesis Aorta Description:Device Status Te xt - CardValve. pig valve placed on 11-16-2016. Mesh Or Patch-08/14/2022 Implanted:08/14 (Quantity not on file) Mesh or Patch Stomach Description:Hernia Mesh 2 Dental Bridges Misc Other Mouth Description:Upper and Lower Dental Bridge. Pacer Preeti Xt Sr Mri - Darling [id number] Implanted:Qty: 1 on 10/09/2017 Pacemaker Other/Legacy - See Implant Description Medtronic / [id number] / Description:Device Manufactu rer - [employer] Body Location - Other. Left. Device Status Text - [id number]. Vascular Other-08/14/2016 Implanted:08/14 (Quantity not on file) Vascular Other Right: Arm Description:A/V fistula Procedures Procedure Name Priority Date/Time Associated Diagnosis Comments PACER REMOTE FOLLOW UP Routine 09/22/2023 3:09 PM CIDER PRESS OPERATOR Encounter For Checking And Testing Of Cardiac [...] PACER REMOTE FOLLOW UP (09/22/2023 3:09 PM CIDER PRESS OPERATOR) Date Time Interrogation Session [id number] [facility] Implantable Pulse Generator Nutritionalist Medtronic [facility] Implantable Pulse Generator Model [id number] Preeti XT SR MRI [facility] Implantable Pulse Generator Serial Number [id number] [facility] Type Interrogation Session Remote [facility] Clinic Name [facility][note 3] LAB SYSTEM Implantable Pulse Generator Type Pacemaker [facility] Implantable Pulse Generator Implant Date 20171009 [facility] Implantable Lead Nutritionalist Medtronic [facility] Implantable Lead Model [id number] Attain Ability MRI SureScan [facility] Implantable Lead Serial Number [id number] [facility] Implantable Lead Implant Date 20171009 [facility] Implantable Lead Polarity Type Bipolar Lead [facility] Implantable Lead Location Detail 1 UNKNOWN [facility] Implantable Lead Special Function Lead length: 88 cm [facility] Implantable Lead Location Left Ventricle [facility] Cholo Setting Mode (NBG Code) VVIR [facility] Cholo Setting Lower Rate Limit 60 {beats}/ min [facility] Cholo Setting Maximum Sensor Rate 130 {beats}/ min [facility] Lead Channel Setting Sensing Polarity Bipolar [facility] Lead Channel Setting [...] Time of Measurements [facility] Battery FITNESS COACH Trigger 2.625 [facility] Battery Remaining Longevity 89 mo [...] SYSTEM Episode Statistic Total Date Time Start [id number] [facility] Episode Statistic Total Date Time End [id number] [facility] Episode Statistic Total Date Time Start [id number] [facility] Episode Statistic Total Date Time End [id number] [facility] Episode Statistic Total Date Time Start [id number] [facility] Episode Statistic Total Date Time End [id number] [facility] Anatomical Region Laterality Modality Other 09/21/2023 10:5 2 PM CIDER PRESS OPERATOR Narrative 09/25/2023 4:10 PM CIDER PRESS OPERATOR PURPOSE OF VISIT: ??Routine remote transmission. PRESENTING EGM: ??RAIL OPERATOR at 60 bpm with a PVC. VENTRICULAR [...] routine device interrogations as indicated. Ernesto Orellana, B.Ch., B.A.O. CV IMP LANTABLE CARDIAC DEVICE * Sodium (05/02/2023 9:28 AM CDT) Sodium, S 142 135 - 145 mmol/L 05/02/2023 10:49 AM CDT DTL Blood (Blood, Venous) 05/02/2023 9:28 AM CDT 05/02/2023 10:09 AM CDT Seven Barnard APRNNDavisP., M.S.N. LAB BLOOD ADD-ON [facility] [address] [place] [address], [facility] [address] [place] [address] * Potassium (05/02/2023 9:28 AM CDT) Pathologist [facility] Potassium, S 4.7 3.6 - 5.2 mmol/L 05/02/2023 10:49 AM CDT DTL Blood (Blood, Venous) 05/02/2023 9:28 AM CDT 05/02/2023 10:09 AM CDT Devi Stafford APRN, C.N.P., M.S.N. LAB BLOOD ADD-ON [facility] [address] [place] [address], [facility] [address] [place] [address] * (ABNORMAL) Creatinine with Estimated GFR (05/02/2023 9:28 AM CDT) [facility] Creatinine 2.09(H) 0.74 - 1.35 mg/dL 05/02/2023 10:49 AM CDT DTL Estimated GFR (eGFR) 31(L) >=60 mL/min/BSA 05/02/2023 10:49 AM CDT DTL Comment: Estimated GFR calculated using the 2020 CKD_EPI creatinine equation. Blood (Blood, Venous) 05/02/2023 9:28 AM CDT 05/02/2023 10:09 AM CDT Devi Stafford APRN, C.N.P., M.S.N. LAB BLOOD ADD-ON [facility] [address] [place] [address], [facility] [address] [place] [address] * S-TSH (Thyroid-Stimulating Hormone - Sensitive) (02/01/2023 8:38 AM CDT) Pathologist [facility] TSH, Sensitive 0.3 0.3 - 4.2 mIU/L 02/01/2023 9:46 AM CDT DTL Blood (Blood, Venous) 02/01/2023 8:38 AM CDT 02/01/2023 9:12 AM CDT Alek Edward AB BLOOD ADD-ON [facility] [address] [place] [address], [place] DTL [facility] [address] [place] [address] from Last 3 Months or Most Recently Relevant to Health Maintenance Advance Directives For more information, please contact: [phone] Documents on File Type Date Recorded Patient Adjustment Examiner Expl anation Advance Directives 2002 12:00 AM [...] Answer Comments Full Code: Discussed Care Teams Cartoon Artist Relationship Specialty Start Date End Date Elsewhere, Pcp PCP - General Internal Medicine 09/13/22
--- OUTSIDE RECORDS SUMMARY | 2023-11-28 07:50 | XMS_ITS | Encounter Summary ---
Author Name Unknown Organization [facility] Address [address] [place] [address] Care Team Providers Care Director [facility] Name Role Phone Elsewhere, Pcp Primary Care Provider Unavailabl e Reason for Visit * Appointment Request (Routine) - Closed Specialty Diagnoses / Procedures Referred By Jessica patel Referred To Contact Nephrology and Hypertension Referral ID Status Reason Start Date Expiration Date Visits Re quested Visits Authorized [id number] Closed 08/25/2023 08/24/2024 1 1 Encounter Details Date Type Department Care Team (Latest Contact Info) Description 09/25/2023 3:00 PM FLOOR SCRAPER External Outreach Division of Nephrology and Hypertension in [place], [place] [address] [place] [address] Eddie Sheffield Jr., D.O. [address] [place] [address] Hypertension And Chronic Kidney Disease Stage 4 (HCC) (Primary Dx); Hyperparathyroidism Renal Secondary (HCC); Malignant Neoplasm Of Thyroid Papillary (HCC); Atrial Fibrillation Permanent (HCC); Chronic Systolic (Congestive) Heart Failure (HCC); Anticoagulant Therapy Social History Tobacco Use Types Packs/Day Years [...] often do you attend chur ch or gnosticism services? 1 to 4 times per year 08/07/2022 Do you belong to any clubs o r organizations such as congregation groups, unions, fraternal or athletic groups, or [...] Recorded PHQ-2 Score 5 01/25/2019 [facility] Occupat ional Health - Occupational Stress [...] Comments Blood Pressure 138/86 09/25/2023 3:03 PM FLOOR SCRAPER Pulse 73 09/25/2023 3:03 PM FLOOR SCRAPER Temperature - - Respiratory Rate - - Oxygen Saturation - - Inhaled Oxygen Concentration - - Weight 72 kg (158 lb 12.8 oz) 09/25/2023 3:03 PM FLOOR SCRAPER Height 170.1 cm (5' 6.97) 09/25/2023 3:03 PM CS T Body Mass Index 24.89 09/25/2023 3:03 PM FLOOR SCRAPER documented in this encounter Progress Notes * Eddie Sheffield Jr., D.O. - 09/25/2023 3:00 PM CST Referring Provider: ELSEWHERE, PCP SUBJECTIVE REASON FOR VISIT [facility] out reach CKD [facility] Follow-up regards CKD secondary to prior acute tubular necrosis and dialysis requirements, on the background of infective endocarditis HISTORY OF PRESENT ILLNESS Mr. Kearney is a 82 y.o. male who presents with a dramatic episode in 2016 and 2017 during which he had septic shock, cardiogenic shock, and endocarditis, with the acute kidney injury requiring dialysis until 2018 when he was able to be liberated from dialysis. Since then we have been seeing each other on a 6 monthly basis and he has been doing well. Feels well he has no constitutional complaints he has been very active. We reviewed his labs which are excellent. His creatinine is stable at 2.1 he has no microalbuminuria, cholesterol levels are excellent and other biochemistries long with his CBC are normal. Additionally gratifying, he has had excellent blood pressure control and his INR has been stable between 2 and 3. No epistaxis no falls no other complaints. I was fortunate to be able to see his wifeseema today. Past Medical History: Diagnosis Date Aftercare Percutaneous [...] Rfl: levothyroxine (SYNTHROID, LEVOTHROID) 175 mcg tablet, Take 1 tablet by mouth daily on Monday through Monday. Take 1/2 tablet by mouth daily on Sundays., Disp: 90 tablet, Rfl: 3 melatonin 3 mg tablet, Take 1 tablet by mouth at bedtime., Disp: , Rfl: multivitamin tablet, Take 1 tablet by mouth daily. Centrum (per director of cath lab) , Disp: , Rfl: omeprazole (PriLOSEC) [address] capsule, TAKE ONE CAPSULE BY MOUTH ONE TIME DAILY FOR ACID REFLUX, Disp: 100 capsule, Rfl: 3 warfarin (COUMADIN) 1 mg tablet, Take 4-5 tablets by mouth as directed. 4 tabs on Monday/Monday/Monday 3 tabs all other days , Disp: , Rfl: REVIEW OF SYSTEMS All other systems reviewed and are negative. OBJECTIVE BP 138/86 Pulse 73 Ht 170.1 cm Wt 72 kg BMI 24.89 kg/m?? PHYSICAL EXAMINATION General: Awake alert oriented HEENT: BRINDA, EOMI, Mucous membranes moist, no oral lesions Neck: No Masses, No Bruits Lungs: Clear to ascultation Heart: Frequent ectopy, very loud rumbling murmur with systolic and diastolic component heard best at the left upper sternal edge, valve clicks appreciated, S4 noted. Abdomen: Soft, Non-tender Extremities: No cyanosis, No clubbing: No edema, his right upper extremity previous fistula was ligated Neuro: Cranial Nerves intact, Gait is normal, strength grossly normal Skin: no suspicious lesions identified Psychiatric: Normal affect DIAGNOSTICS Creatinine stable at 2.1 mg/dL, normal CBC no microalbuminuria hemoglobin 13.7 ASSESSMENT / PLAN #1 Hypertension And Chronic Kidney Disease Stage 4 (HCC) Excellent blood pressure management and stable chronic kidney disease on the background of prior acute tubular necrosis, endocarditis, and combination of septic and cardiogenic shock. He has been liberated from dialysis since 2018. Going forward: 1. I will see him on an annual basis 2. Continue on his current medical regimen, we will avoid NSAIDs and Edward 2 inhibitors 3. Goal blood pressure is above 100 systolic but below 140 systolic 4. Continue in his anticoagulation therapy 5. Continue stay well hydrated #2 Hyperparathyroidism Renal Secondary (HCC) I am satisfied with his calcium phosphorus albumin and PTH levels. #3 Malignant Neoplasm Of Thyroid Papillary (HCC) TSH is suppressed, thyroid function levels otherwise are normal. #4 Atrial Fibrillation Permanent (HCC) He continues on oral anticoagulation rate control he has been doing well with this. #5 Chronic Systolic (Congestive) Heart Failure (HCC) Well compensated #6 Anticoagulant Therapy INR 3.0 Total time: 30 minutes Counseling Time: 25 minutes Eddie Sheffield Jr., D.O. R SCRAPER documented in this encounter Plan of Treatment Upcoming Encounters Date Type Department Care Team (Latest Contact Info) Description 12/04/2023 10:30 AM CDT Clinical Communication Virtual Review in [place], [place] [address] [place] [address] 12/06/2023 7:40 AM CDT Lab Department of Laboratory Medicine and Pathology, [facility], in [place], [place] [address] [place] [address] Jemal Murrell M.B.B.S., Alek [address] [place] [phone] 12/06/2023 8:00 AM CDT Appointment Department of Radiology, [facility] in [place], [place] [address] [place] [phone] Jemal Murrell M.B.B.S., M.D. [address] [place] [phone] Discharge Disposition: Home or Self Care 12/06/2023 9:20 AM CDT Appointment Department of Radiology, [facility] in [place], [place] [address] [place] [phone] Jemal Murrell M.B.B.S., M.D. [address] [place] [phone] 12/06/2023 10:00 AM CDT Appointment Department of Radiology, [facility] in [place], [place] [address] [place] [phone] Jemal Murrell M.B.B.S., Alek [address] [place] [phone] 12/06/2023 1:30 PM CDT Office Visit Division of Endocrinology in [place], [place] [address] [place] [phone] Zara Garvey APRN, C.N.P., D.N.P. 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
--- OUTSIDE RECORDS SUMMARY | 2023-11-28 07:50 | XMS_ITS | Encounter Summary ---
Author Name Unknown Organization [facility] Address [address] [place] [address] Care Team Providers Care Director Pharmacovigilance Name Role Phone Elsewhere, Pcp Primary Care Provider Unavailabl e Encounter Details Date Type Department Care Team (Latest Contact Info) Description 09/22/2023 4:00 AM HOSPITALIST - 09/22/2023 11:59 PM HOSPITALIST Hospital Encounter Department of Cardiovascular Diseases in [place], [place] [address] [place] [address] Ernesto Xiao M.B., B.Ch., B.A.O. [address] [place] [address] Encounter For Checking And Testing Of Cardiac [...] How often do you attend chur or adventist services? 1 to 4 times per year 08/07/2022 Do you belong to any clubs o r organizations such as sabianism groups, unions, fraternal or athletic groups, or [...] Answer Date Recorded PHQ-2 Score 5 01/25/2019 [facility] Occupat ional Health - Occupational Stress [...] 6 (six) hours as needed for pain. amoxicillin (AMOXIL) 500 mg capsule Take 4 caps (2000 mg) 1 hour prior to procedure. 12 capsule 11 11/19/[address] tablet Take 1 tablet by mouth daily. for heart failure. Refills per PCP 03/11/2017 atorvastatin (LIPITOR) 10 mg tablet TAKE ONE TABLET BY MOUTH DAILY FOR HIGH CHOLESTEROL 90 tablet 3 05/20/2019 calcium citrate-vitamin D3 (CITRACAL+D) 315-200 mg-unit per tablet Take 2 tablets by mouth daily with breakfast. carvediloL (COREG) 25 mg tablet Take 1 tablet (25 mg total) by mouth 2 (two) times a day with meals. 180 tablet 3 10/10/2022 furosemide (LASIX) 20 mg tablet Take 1 tablet by mouth daily. 09/22/2017 hydrALAZINE (APRESOLINE) 25 mg tablet TAKE 1 TABLET BY MOUTH THREE TIMES A DAY 270 tablet 3 08/25/2022 isosorbide mononitrate (IMDUR) 30 mg 24 hr tablet Take 1 tablet (30 mg total) by mouth at bedtime. 90 tablet 3 07/03/2018 Klor-Con M20 20 mEq ER tablet Take 20 mEq by mouth daily. 02/10/2020 levothyroxine (SYNTHROID, LEVOTHROID) 175 mcg tablet Take 1 tablet by mouth daily on Monday through Monday. Take 1/2 tablet by mouth daily on Sundays. 90 tablet 3 05/18/2023 melatonin 3 mg tablet Take 1 tablet by mouth at bedtime. 05/23/2017 multivitamin tablet Take 1 tablet by mouth daily. Centrum (per game design instructor) 10/09/2017 omeprazole (PriLOSEC) [address] capsuleIndications:Gas troesophageal Reflux Disease TAKE ONE CAPSULE BY MOUTH ONE TIME DAILY FOR ACID REFLUX 100 capsule 3 05/21/2018 warfarin (COUMADIN) 1 mg tablet Take 4-5 tablets by mouth as directed. 4 tabs on Monday/Monday/ ay 3 tabs all other days 10/09/2017 documented as of this encounter Plan of Treatment Upcoming Encounters Date Type Department Care Team (Latest Contact Info) Description 12/04/2023 10:30 AM CDT Clinical Communication Virtual Review in [place], [place] [address] [place] [address] 12/06/2023 7:40 AM CDT Lab Department of Laboratory Medicine and Pathology, [facility], in [place], [place] [address] [place] [phone] Jemal Murrell M.B.B.S., Alek [address] [place] [phone] 12/06/2023 8:00 AM CDT Appointment Department of Radiology, [facility] in [place], [place] [address] [place] [phone] Jemal Murrell M.B.B.S., M.D. [address] [place] [phone] Discharge Disposition: Home or Self Care 12/06/2023 9:20 AM CDT Appointment Department of Radiology, [facility] in [address] [phone] Jemal Murrell M.B.B.S., Alek [address] [place] [phone] 12/06/2023 10:00 AM CDT Appointment Department of Radiology, [facility] in [place], [place] [address] [place] [phone] Jemal Murrell M.B.B.S., Alek [address] [place] [phone] 12/06/2023 1:30 PM CDT Office Visit Division of Endocrinology in [place], [place] [address] [place] [phone] Zara Garvey APRN, C.N.P., D.N.P. [address] [place] [phone] documented as of this encounter Procedures Procedure Name Priority Date/Time Associated Diagnosis Comments PACER REMOTE FOLLOW UP Routine 09/22/2023 3:09 PM HOSPITALIST Encounter For Checking And Testing Of Cardiac Pacemaker Pulse Generator Battery documented in this encounter Results * PACER REMOTE FOLLOW UP (09/22/2023 3:09 PM HOSPITALIST) Date Time Interrogation Session [id number] [facility] Implantable Pulse Generator Creative Producer Medtronic [facility] Implantable Pulse Generator Model [id number] [place] XT SR MRI [facility] Implantable Pulse Generator Serial Number [id number] [facility] Type Interrogation Session Remote [facility] Clinic Name [facility] Implantable Pulse Generator Type Pacemaker [facility] Implantable Pulse Generator Implant Date 20171009 [facility] Implantable Lead Creative Producer Medtronic [facility] Implantable Lead Model 4196 Attain Ability MRI SureScan [facility] Implantable Lead Serial Number [id number] [facility] Implantable Lead Implant Date 20171009 [facility] Implantable Lead Polarity Type Bipolar Lead [facility] Implantable Lead Location Detail 1 UNKNOWN [facility] Implantable Lead Special Function Lead length: 88 cm [facility] Implantable Lead Location Left Ventricle [facility] Cholo Setting Mode (NBG Code) VVIR [facility] Cholo Setting Lower Rate Limit 60 {beats}/ min [facility] Cholo Setting Maximum Sensor Rate 130 {beats}/ min [facility] Lead Channel Setting Sensing Polarity Bipolar [facility] Lead Channel Setting Sensing Anode Location Right Ventricle [facility] Lead Channel Setting Sensing Anode Terminal Ring [facility] Lead Channel Setting Sensing Cathode Location Right Ventricle [facility] Lead Channel Setting Sensing Cathode Terminal Tip [facility] Lead Channel Setting Sensing Sensitivity 0.9 mV [facility] Lead Channel Setting Pacing Polarity Bipolar [facility] Lead Channel Setting Pacing Anode Location Right Ventricle [facility] Lead Channel Setting Pacing Anode Terminal Ring [facility] Lead Channel Setting Sensing Cathode Location Right Ventricle [facility] Lead Channel Setting Sensing Cathode Terminal Tip [facility] Lead Channel Setting Pacing Pulse Width 0.4 ms [facility] Lead Channel Setting Pacing Amplitude 3 V [facility] Lead Channel Setting Pacing Capture Mode Adaptive [facility] Zone Setting Type Category VF [facility] Zone Setting Type Category VT [facility] Zone Setting Type Category VT [facility] Zone Setting Type Category VT [facility] Zone Setting Detection Interval 360 ms [facility] Zone Setting Type Category ATRIAL_FIBRILLATI [...] Time of Measurements [facility] Battery BREED TO WEAN PRODUCTION TECHNICIAN Trigger 2.625 [facility] Battery Remaining Longevity 89 mo [...] SYSTEM Episode Statistic Total Date Time Start [id number] [facility] Episode Statistic Total Date Time End [id number] [facility] Episode Statistic Total Date Time Start [id number] [facility] Episode Statistic Total Date Time End [id number] [facility] Episode Statistic Total Date Time Start [id number] [facility] Episode Statistic Total Date Time End [facility] Anatomical Region Laterality Modality Other 09/21/2023 10:5 2 PM HOSPITALIST Narrative 09/25/2023 4:10 PM HOSPITALIST PURPOSE OF VISIT: ??Routine remote transmission. PRESENTING EGM: ??AMBULATORY NURSE at 60 bpm with a PVC. VENTRICULAR [...] routine device interrogations as indicated. Ernesto Orellana, B.Arianne., B.A.O. CV IMP LANTABLE CARDIAC DEVICE documented in this encounter Visit Diagnoses Diagnosis Encounter For Checking And Testing Of Cardiac Pacemaker Pulse Generator Battery documented in this encounter Additional Health Concerns Assessment Noted Time PHQ-9 Depression Total Score: 5 03/06/20 18 6:00 PM CDT documented as of this encounter Care Teams Director Pharmacovigilance Relationship Specialty Start Date End Date Elsewhere, Pcp PCP - General Internal Medicine 09/13/22 documented as of this encounter
== END 2023-11-20 10:01 | disposition home or self-care (01) ==
LOC: NFLDREF 11-28 07:48
PROVIDERS: PCP Family Medicine; Referring Provider Family Medicine; Visit Provider Internal Medicine
DX: N39.0 Urinary tract infection, site not specified (principal); B95.2 Enterococcus as the cause of diseases classified elsewhere
CPT/HCPCS: 87086; 87186

== ENCOUNTER 2023-12-02 10:04 | Outpatient (CLI) | payer MEDICARE, SELFPAY ==
--- OUTSIDE RECORDS SUMMARY | 2023-12-04 06:44 | XMS_ITS | Clinical Summary ---
Author Name Unknown Organization [facility] Address [address] [place] [address] Care Team Providers Care Help Desk Technician Name Role Phone Elsewhere, Pcp Primary Care Provider Unavailabl e Source Comments Patient records contain information from all sites at [facility]. For routine questions regarding patient records, call [phone] during business hours, M-F 8:00 AM - 5:00 PM Central Time. Record requests for emergency care only can be directed to [phone] at any time.[facility] Allergies Active Allergy Reactions Criticality Noted Date [...] 1 tablet by mouth daily. Centrum (per inspector receiving) 10/09/2017 Active acetaminophen (TYLENOL) 500 mg tablet [...] Papillary 02/10/20 17 Anemia Of Renal Failure Electronic Intelligence Officer nirmala Kidney Disease On Erythropoietin 01/30/2017 Flutter [...] Department Care Team Description 09/25/2023 3:00 PM MAIL MESSENGER External Outreach Division of Nephrology and Hypertension in [place], [place] [address] [place] [address] Eddie Sheffield Jr., D.O. 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 Encounter For Checking And Testing Of Cardiac Pacemaker Pulse Generator Battery Discharge Disposition: Home or Self Care from Last 3 Months Immunizations Name Administration Dates Next Due influenza high dose (65 years or older) (PF) ,05/16/2016 Family History Medical History Relation Name Comments Thyroid disease Daughter Caira Fregoso Anxiety disorder Mother Josiane Kearney Dementia [...] = 0.6 oz pu re alcohol) occassional [facility] Utilities Answer Date Recorded In the past 12 months has e [employer], gas, oil, or water [employer] threatened to shut off services in your home? No 12/01/2023 Humiliation, Afraid, Rape, and Kick questionnair e [...] week 08/07/2022 How often do you attend [facility] or taoism services? 1 to 4 times per year 08/07/2022 Do you belong to any clubs o r organizations such as evangelical groups, unions, fraternal or athletic groups, or [...] Score 5 01/25/2019 [facility] Occupational Stress Questionnaire Answer [...] to strenuous exercise (like a brisk walk)? 3 days 12/01/2023 On average, how many minutes do you engage in exercise at this level? 40 min 12/01/2023 Hunger Vital Sign Answer Date Recorded Within the past 12 months, y ou worried that your food would run out before you got the money to buy more. Never true 12/01/19 24 Within the past 12 months, t he food you bought just didn't last and you didn't have money to get more. Never true 12/01/2023 PRAPARE - Transportation Answer Date Re corded In the past 12 months, has l ack of transportation kept you from medical appointments or from getting medications? No 11/12 In the past 12 months, has l ack of transportation kept you from meetings, work, or from getting things needed for daily living? No 12/01/2023 Nutrition Answer Date Recorded On average, how many serving s of fruits and vegetables do you eat per day (serving size is equal to 1 cup or approximately the size of a tennis ball)? 0-2 12/01/2023 Dental Answer Date Recorded Dental: Regular Dentist Yes 08/07/20 Employment Answer Date Recorded Employment status Retired 12/01/2023 Housing Stability Answer Date Recorded What is your living situation today? [facility] 12/01/2023 Education Answer Date Recorded What is the [...] Comments Blood Pressure 138/86 09/25/2023 3:03 PM MAIL MESSENGER Pulse 73 09/25/2023 3:03 PM MAIL MESSENGER Temperature 36.6 ??C (97.9 ??F) 04/10/2023 10:00 AM C DT Respiratory Rate 16 04/10/2023 6:41 AM CDT Oxygen Saturation 94% 04/10/2023 10:10 AM CDT Inhaled Oxygen Concentration - - Weight 72 kg (158 lb 12.8 oz) 09/25/2023 3:03 PM MAIL MESSENGER Height 170.1 cm (5' 6.97) 09/25/2023 3:03 PM CS T Body Mass Index 24.89 09/25/2023 3:03 PM MAIL MESSENGER Plan of Treatment Upcoming Encounters Date Type Department Care Team (Latest Contact Info) Description 12/04/2023 10:30 AM CDT Clinical Communication Virtual Review in [address] [phone] 12/06/2023 7:40 AM CDT Lab Department of Laboratory Medicine and Pathology, [address] [phone] Jemal Murrell M.B.B.S., MYudy [address] [place] [phone] 12/06/2023 8:00 AM CDT Appointment Department of Radiology, [address] [phone] Jemal Murrell M.B.B.S., MYudy [address] [place] [phone] Discharge Disposition: Home or Self Care 12/06/2023 9:20 AM CDT Appointment Department of Radiology, [facility], [address] [phone] Jemal Murrell M.B.B.S., M.D. [address] [place] [address] 12/06/2023 10:00 AM CDT Appointment Department of Radiology, [facility], in [place], [place] [address] [place] [address] Jemal Murrell M.B.B.S., M.D. [address] [place] [phone] 12/06/2023 1:30 PM CDT Office Visit Division of Endocrinology in [place], [place] [address] [place] [address] Zara Garvey APRN, C.N.P., D.N.P. [address] [place] [phone] Health Maintenance Due Date Last Done Comments [...] history exists Medical Devices Implanted Type Area Juice Packaging Machines Setter Device Identifier Shelf Expiration Date Model / Serial / Lot Lead [id number] Daylight Driller Attain Ability - Darling [id number] Implanted:Qty: 1 on 10/09/2017 Cardiac Lead Coronary Medtronic / [id number] / Description:Device Manufactu rer - 1SDK. Body Location - Other. Coronary Sinus. Device Status Text - CARD LEAD-[id number]. Conversions - Default Historical Implant Device Implanted:03/07 (Quantity not on file) Cardiac Valve Prosthesis Aorta Description:Device Status Te xt - CardValve. pig valve placed on 11-16-2016. Mesh Or Patch-08/14/2022 Implanted:08/14 (Quantity not on file) Mesh or Patch Stomach Description:Hernia Mesh 2 Dental Bridges Misc Other Mouth Description:Upper and Lower Dental Bridge. Pacer [place] Xt Sr Mri - Darling [id number] Implanted:Qty: 1 on 10/09/2017 Pacemaker Other/Legacy - See Implant Description Medtronic / [id number] / Description:Device Manufactu rer - 1SDK. Body Location - Other. Left. Device Status Text - PACEMAKER-[id number]. Vascular Other-08/14/2016 Implanted:08/14 (Quantity not on file) Vascular Other Right: Arm Description:A/V fistula Procedures Procedure Name Priority Date/Time Associated Diagnosis Comments PACER REMOTE FOLLOW UP Routine 09/22/2023 3:09 PM MAIL MESSENGER Encounter For Checking And Testing Of Cardiac [...] PACER REMOTE FOLLOW UP (09/22/2023 3:09 PM MAIL MESSENGER) Date Time Interrogation Session [id number] [facility] Implantable Pulse Generator Juice Packaging Machines Setter Medtronic [facility] Implantable Pulse Generator Model [id number] [place] XT SR MRI [facility] Implantable Pulse Generator Serial Number [id number] [facility] Type Interrogation Session Remote [facility] Clinic Name [facility] Implantable Pulse Generator Type Pacemaker [facility] Implantable Pulse Generator Implant Date 20171009 [facility] Implantable Lead Juice Packaging Machines Setter [employer] [facility] Implantable Lead Model 4196 Attain Ability MRI SureScan [facility] Implantable Lead Serial Number [id number] [facility] Implantable Lead Implant Date 20171009 [facility] Implantable Lead Polarity Type Bipolar Lead [facility] Implantable Lead Location Detail 1 UNKNOWN [facility] Implantable Lead Special Function Lead length: 88 cm [facility] Implantable Lead Location Left Ventricle [facility] Cholo Setting Mode (NBG Code) VVIR [facility] Cholo Setting Lower Rate Limit 60 {beats}/ min [facility] Cholo Setting Maximum Sensor Rate 130 {beats}/ min [facility] Lead Channel Setting Sensing Polarity Bipolar [facility] Lead Channel Setting Sensing Anode Location Right Ventricle [facility] Lead Channel Setting Sensing Anode Terminal Ring [facility] Lead Channel Setting Sensing Cathode Location Right Ventricle [facility] Lead Channel Setting Sensing Cathode Terminal Tip [facility] Lead Channel Setting Sensing Sensitivity 0.9 mV [facility] Lead Channel Setting Pacing Polarity Bipolar [facility] Lead Channel Setting Pacing Anode Location Right Ventricle [facility] Lead Channel Setting Pacing Anode Terminal Ring [facility] Lead Channel Setting Sensing Cathode Location Right Ventricle [facility] Lead Channel Setting Sensing Cathode Terminal Tip [facility] Lead Channel Setting Pacing Pulse Width 0.4 ms [facility] Lead Channel Setting Pacing Amplitude 3 V [facility] Lead Channel Setting Pacing Capture Mode Adaptive [facility] Zone Setting Type Category VF [...] Time of Measurements [facility] Battery SKOOG MACHINE OPERATOR Trigger 2.625 [facility] Battery Remaining [...] SYSTEM Episode Statistic Total Date Time Start [id number] [facility] Episode Statistic Total Date Time End [id number] [facility] Episode Statistic Total Date Time Start [id number] [facility] Episode Statistic Total Date Time End [id number] [facility] Episode Statistic Total Date Time Start [id number] [facility] Episode Statistic Total Date Time End [id number] [facility] Anatomical Region Laterality Modality Other 09/21/2023 10:5 2 PM MAIL MESSENGER Narrative 09/25/2023 4:10 PM MAIL MESSENGER PURPOSE OF VISIT: ??Routine remote transmission. PRESENTING EGM: ??DIRECTOR OF RESERVATIONS at 60 bpm with a PVC. VENTRICULAR [...] B.Arianne., B.A.O. CV IMP LANTABLE CARDIAC DEVICE * Sodium (05/02/2023 9:28 AM CDT) Sodium, S 142 135 - 145 mmol/L 05/02/2023 10:49 AM CDT DTL Blood (Blood, Venous) 05/02/2023 9:28 AM CDT 05/02/2023 10:09 AM CDT Seven Barnard APRNNTripp., M.S.N. LAB BLOOD ADD-ON [facility] [address] [place] [address], [facility] [address] [place] [address] * Potassium (05/02/2023 9:28 AM CDT) Potassium, S 4.7 3.6 - 5.2 mmol/L 05/02/2023 10:49 AM CDT DTL Blood (Blood, Venous) 05/02/2023 9:28 AM CDT 05/02/2023 10:09 AM CDT Seven Barnard APRNNTripp., M.S.N. LAB BLOOD ADD-ON [facility] [address] [place] [address], [facility] [address] [place] [address] * (ABNORMAL) Creatinine with Estimated GFR (05/02/2023 [...] M.S.N. LAB BLOOD ADD-ON Performing Organization Address City/[facility]/ZIP Co de Phone Number [facility] [address] [place] [address], [facility] [address] [place] [address] * S-TSH (Thyroid-Stimulating Hormone - Sensitive) (02/01/2023 8:38 AM CDT) TSH, Sensitive 0.3 0.3 - 4.2 mIU/L 02/01/2023 9:46 AM CDT DTL Blood (Blood, Venous) 02/01/2023 8:38 AM CDT 02/01/2023 9:12 AM CDT Jemal Garcia, M.D. L AB BLOOD ADD-ON [facility] [address] [place] [address], [facility] 3[facility] [address] [place] [address] from Last 3 Months or Most Recently Relevant to Health Maintenance Advance Directives For more information, please contact: [phone] Documents on File Type Date Recorded Patient Repairer Sash And Door Expl anation Advance Directives 2002 12:00 AM [...] Answer Comments Full Code: Discussed Care Teams Help Desk Technician Relationship Specialty Start Date End Date Elsewhere, Pcp PCP - General Internal Medicine 09/13/22
--- OUTSIDE RECORDS SUMMARY | 2023-12-04 06:44 | XMS_ITS ---
Author Name Unknown Organization [facility] Address [address] [place] [address] Care Team Providers Care Record Tester Name Role Phone Unavailable Unavailable Unavailable Surgery Details Not on file Complications Check Surgery Details section. Procedure Estimated Blood Loss Check Surgery Details section. Procedure Findings Check Surgery Details section. Procedure Specimens Taken Check Surgery Details section.
--- OUTSIDE RECORDS SUMMARY | 2023-12-04 06:44 | XMS_ITS | Referral Summary ---
Author Name Unknown Organization [facility] Address [address] [place] [address] Care Team Providers Care Apprentice Embalmer Name Role Phone Elsewhere, Pcp Primary Care Provider Unavailabl e Source Comments Patient records contain information from all sites at [facility]. For routine questions regarding patient records, call [phone] during business hours, M-F 8:00 AM - 5:00 PM Central Time. Record requests for emergency care only can be directed to [phone] at any time.[facility] Encounters Date Type Department Care Team Description 09/25/2023 3:00 PM CHANNEL CEMENTER INSOLE MACHINE External Outreach Division of Nephrology and Hypertension in [place], [place] [address] [place] [address] Eddie Sheffield Jr., D.O. Hypertension And Chronic Kidney Disease Stage 4 (HCC) (Primary Dx); Hyperparathyroidism Renal Secondary (HCC); Malignant Neoplasm Of Thyroid Papillary (HCC); Atrial Fibrillation Permanent (HCC); Chronic Systolic (Congestive) Heart Failure (HCC); Anticoagulant Therapy 09/22/2023 4:00 AM CHANNEL CEMENTER INSOLE MACHINE - 09/22/2023 11:59 PM CHANNEL CEMENTER INSOLE MACHINE Hospital Encounter Department of Cardiovascular Diseases in [place], [place] [address] [place] [address] Ernesto Xiao M.B., B.Ch., B.A.O. Encounter For [...] 1 tablet by mouth daily. Centrum (per customer service specialist) 10/09/2017 Active acetaminophen (TYLENOL) 500 mg tablet [...] Papillary 02/10/20 17 Anemia Of Renal Failure Talent Sourcing Specialist nirmala Kidney Disease On Erythropoietin 01/30/2017 Flutter [...] = 0.6 oz pu re alcohol) occassional [facility] Utilities Answer Date Recorded In the past 12 months has [employer], gas, oil, or water company threatened to shut off services in your [...] 08/07/2022 How often do you attend [facility] or oriental orthodox services? 1 to 4 times per year 08/07/2022 Do you belong to any clubs o r organizations such as jainism groups, unions, fraternal or athletic groups, or [...] Answer Date Recorded PHQ-2 Score 5 01/25/2019 [place] of Occupat ional Health - Occupational Stress [...] your living situation today? I have a [facility] place to live 12/01/2023 Education Answer Date [...] Comments Blood Pressure 138/86 09/25/2023 3:03 PM CHANNEL CEMENTER INSOLE MACHINE Pulse 73 09/25/2023 3:03 PM CHANNEL CEMENTER INSOLE MACHINE Temperature 36.6 ??C (97.9 ??F) 04/10/2023 10:00 AM C DT Respiratory Rate 16 04/10/2023 6:41 AM CDT Oxygen Saturation 94% 04/10/2023 10:10 AM CDT Inhaled Oxygen Concentration - - Weight 72 kg (158 lb 12.8 oz) 09/25/2023 3:03 PM CHANNEL CEMENTER INSOLE MACHINE Height 170.1 cm (5' 6.97) 09/25/2023 3:03 PM CS T Body Mass Index 24.89 09/25/2023 3:03 PM CHANNEL CEMENTER INSOLE MACHINE Plan of Treatment Upcoming Encounters Date Type Department Care Team (Latest Contact Info) Description 12/04/2023 10:30 AM CDT Clinical Communication Virtual Review in [place], [place] 200 [place] [address] 12/06/2023 7:40 AM CDT Lab Department of Laboratory Medicine and Pathology, [place], [place] [address] [place] [phone] Jemal Murrell M.B.B.S., MYudy [address] [place] [phone] 12/06/2023 8:00 AM CDT Appointment Department of Radiology, [address] [phone] Jemal Murrell M.B.B.S., MYudy [address] [place] [phone] Discharge Disposition: Home or Self Care 12/06/2023 9:20 AM CDT Appointment Department of Radiology, [address] [phone] Jemal Murrell M.B.B.S., MYudy [address] [place] [phone] 12/06/2023 10:00 AM CDT Appointment Department of Radiology, [facility], in [place], [place] [address] [place] [address] Jemal Murrell M.B.B.S., M.D. [address] [place] [address] 12/06/2023 1:30 PM CDT Office Visit Division of Endocrinology in [place], [place] [address] [place] [phone] Zara Garvey APRN, C.N.P., D.N.P. [address] [place] [phone] Medical Devices Implanted Type Area Toeing Stockings Device Identifier Shelf Expiration Date Model / Serial / Lot Lead [id number] Fret Saw Operator Attain Ability - Darling [id number] Implanted:Qty: 1 on 10/09/2017 Cardiac Lead Coronary Medtronic / [id number] / Description:Device Manufactu rer - [id number]. Body Location - Other. Coronary Sinus. Device Status Text - CARD [id number]. Conversions - Default Historical Implant Device Implanted:03/07 (Quantity not on file) Cardiac Valve Prosthesis Aorta Description:Device Status Te xt - CardValve. pig valve placed on 11-16-2016. Mesh Or Patch-08/14/2022 Implanted:08/14 (Quantity not on file) Mesh or Patch Stomach Description:Hernia Mesh 2 Dental Bridges Misc Other Mouth Description:Upper and Lower Dental Bridge. Pacer Fairforest Xt Sr Mri - Darling [id number] Implanted:Qty: 1 on 10/09/2017 Pacemaker Other/Legacy - See Implant Description Medtronic / [id number] / Description:Device Manufactu rer [place]. Body Location - Other. Left. Device Status Text - [id number]. Vascular Other-08/14/2016 Implanted:08/14 (Quantity not on file) Vascular Other Right: Arm Description:A/V fistula Procedures Procedure Name Priority Date/Time Associated Diagnosis Comments PACER REMOTE FOLLOW UP Routine 09/22/2023 3:09 PM CHANNEL CEMENTER INSOLE MACHINE Encounter For Checking And Testing Of Cardiac [...] PACER REMOTE FOLLOW UP (09/22/2023 3:09 PM CHANNEL CEMENTER INSOLE MACHINE) Date Time Interrogation Session [id number] [facility] Implantable Pulse Generator Toeing Stockings Medtronic [facility] Implantable Pulse Generator Model [id number] [place] XT SR MRI [facility] Implantable Pulse Generator Serial Number [id number] [facility] Type Interrogation Session Remote [facility] Clinic Name [facility] Implantable Pulse Generator Type Pacemaker [facility] Implantable Pulse Generator Implant Date 20171009 [facility] Implantable Lead Toeing Stockings Medtronic [facility] Implantable Lead Model 4196 Attain Ability MRI SureScan [facility] Implantable Lead Serial Number [id number] [facility] Implantable Lead Implant [...] Channel Setting Sensing Anode Location Right Ventricle [facility] Lead Channel Setting [...] Time of Measurements [facility] Battery VENDING MACHINE SERVICER Trigger 2.625 [facility] Battery Remaining [...] SYSTEM Episode Statistic Total Date Time Start [id number] [facility] Episode Statistic Total Date Time End [id number] [facility] Episode Statistic Total Date Time Start [id number] [facility] Episode Statistic Total Date Time End [id number] [facility] Episode Statistic Total Date Time Start [id number] [facility] Episode Statistic Total Date Time End [id number] [facility] Anatomical Region Laterality Modality Other 09/21/2023 10:5 2 PM CHANNEL CEMENTER INSOLE MACHINE Narrative 09/25/2023 4:10 PM CHANNEL CEMENTER INSOLE MACHINE PURPOSE OF VISIT: ??Routine remote transmission. PRESENTING EGM: ??COBOL MAINFRAME DEVELOPER at 60 bpm with a PVC. VENTRICULAR [...] Jass Barnard APRN.N.P., M.S.N. LAB BLOOD [facility] [address] [place] [address], [facility] [address] [place] [address] * Potassium (05/02/2023 9:28 AM CDT) Potassium, S 4.7 3.6 - 5.2 mmol/L 05/02/2023 10:49 AM CDT DTL Blood (Blood, Venous) 05/02/2023 9:28 AM CDT 05/02/2023 10:09 AM CDT Devi Stafford APRN, C.N.P., M.S.N. LAB BLOOD [facility] [address] [place] [address], [facility] [address] [place] [address] * (ABNORMAL) Creatinine with Estimated GFR (05/02/2023 9:28 AM CDT) Creatinine 2.09(H) 0.74 - 1.35 mg/dL 05/02/2023 10:49 AM CDT DTL Estimated GFR (eGFR) 31(L) >=60 mL/min/BSA 05/02/2023 10:49 AM CDT DTL Comment: Estimated GFR calculated using the 2020 CKD_EPI creatinine equation. Blood (Blood, Venous) 05/02/2023 9:28 AM CDT 05/02/2023 10:09 AM CDT Devi Stafford APRN, C.N.P., M.S.N. LAB BLOOD [facility] [address] [place] [address], [facility] [address] [place] [address] * S-TSH (Thyroid-Stimulating Hormone - Sensitive) (02/01/2023 8:38 AM CDT) TSH, Sensitive 0.3 0.3 - 4.2 mIU/L 02/01/2023 9:46 AM CDT DTL Blood (Blood, Venous) 02/01/2023 8:38 AM CDT 02/01/2023 9:12 AM CDT Jemal Garcia M.D. L AB BLOOD [facility] [address] [place] [address], [place] DTL [facility] [address] [place] [address] from Last 3 Months or Most Recently Relevant to Health Maintenance Advance Directives For more information, please contact: [phone] Documents on File Type Date Recorded Patient Administrative Assistant Coordinator Expl anation Advance Directives 2002 12:00 AM [...] Answer Comments Full Code: Discussed Care Teams Apprentice Embalmer Relationship Specialty Start Date End Date Elsewhere, Pcp PCP - General Internal Medicine 09/13/22
--- OUTSIDE RECORDS SUMMARY | 2023-12-04 06:44 | XMS_ITS | Encounter Summary ---
Author Name Unknown Organization [facility] Address [address] [place] [address] Care Team Providers Care Supervisor Pumping Station Name Role Phone Elsewhere, Pcp Primary Care Provider Unavailabl e Encounter Details Date Type Department Care Team (Latest Contact Info) Description 09/22/2023 4:00 AM MANAGER SERVICES - 09/22/2023 11:59 PM MANAGER SERVICES Hospital Encounter Department of Cardiovascular Diseases in [place], [place] [address] [place] [address] Ernesto Xiao M.B., B.Ch., B.A.O. [address] [place] [address] Encounter For Checking And Testing Of Cardiac [...] How often do you attend chur or confucianism services? 1 to 4 times per year 08/07/2022 Do you belong to any clubs o r organizations such as orthodoxy groups, unions, fraternal or athletic groups, or [...] Answer Date Recorded PHQ-2 Score 5 01/25/2019 [facility] [place] of Occupat ional Health - Occupational Stress [...] 1 tablet by mouth daily. Centrum (per shuttle final inspector) 10/09/2017 omeprazole (PriLOSEC) [address] capsuleIndications:Gas [...] AM CDT Clinical Communication Virtual Review in [place], [place] 200 [place] [address] 12/06/2023 7:40 AM CDT Lab Department of Laboratory Medicine and Pathology, [facility], in [place], [place] [address] [place] [phone] Jemal Murrell M.B.B.S., Alek [address] [place] [phone] 12/06/2023 8:00 AM CDT Appointment Department of Radiology, [facility] in [place], [place] [address] [place] [phone] Jemal Murrell M.B.B.S., Aelk [address] [place] [phone] Discharge Disposition: Home or Self Care 12/06/2023 9:20 AM CDT Appointment Department of Radiology, [facility] in [place], [place] [address] [place] [phone] Jemal Murrell M.B.B.S., Alek [address] [place] [phone] 12/06/2023 10:00 AM CDT Appointment Department of Radiology, [facility] in [place], [place] [address] [place] [phone] Jemal Murrell M.B.B.S., Alek [address] [place] [phone] 12/06/2023 1:30 PM CDT Office Visit Division of Endocrinology in [place], [place] [address] [place] [phone] Zara Garvey APRN, C.N.P., D.N.P. [address] [place] [phone] documented as of this encounter Procedures Procedure Name Priority Date/Time Associated Diagnosis Comments PACER REMOTE FOLLOW UP Routine 09/22/2023 3:09 PM MANAGER SERVICES Encounter For Checking And Testing Of Cardiac Pacemaker Pulse Generator Battery documented in this encounter Results * PACER REMOTE FOLLOW UP (09/22/2023 3:09 PM MANAGER SERVICES) Date Time Interrogation Session [id number] [facility] Implantable Pulse Generator Lunch Truck Operator Medtronic [facility] Implantable Pulse Generator Model [id number] [place] XT SR MRI [facility] Implantable Pulse Generator Serial Number [id number] [facility] Type Interrogation Session Remote [facility] Clinic Name [facility] Implantable Pulse Generator Type Pacemaker [facility] Implantable Pulse Generator Implant Date 20171009 [facility] Implantable Lead Lunch Truck Operator Medtronic [facility] Implantable Lead Model 4196 Attain Ability MRI SureScan [facility] Implantable Lead Serial Number [id number] [facility] [...] LAB SYSTEM Implantable Lead Location Left Ventricle [facility] Cholo Setting Mode [...] Lead Channel Setting Sensing Anode Terminal Ring [facility] Lead Channel Setting Sensing Cathode Location Right Ventricle [facility] Lead Channel Setting Sensing Cathode Terminal Tip [facility] Lead Channel Setting Sensing Sensitivity 0.9 mV [facility] Lead Channel Setting Pacing Polarity Bipolar [facility] Lead Channel Setting Pacing Anode Location Right Ventricle [facility] Lead Channel Setting Pacing Anode Terminal Ring [facility] Lead Channel Setting Sensing Cathode Location Right Ventricle [facility] Lead Channel Setting Sensing Cathode Terminal Tip [facility] Lead Channel Setting Pacing Pulse Width 0.4 ms [facility] Lead Channel Setting Pacing Amplitude 3 V [facility] Lead Channel Setting Pacing Capture Mode Adaptive [facility] Zone Setting Type Category VF [facility] Zone Setting Type Category VT [facility] Zone Setting Type Category VT [facility] Zone Setting Type Category VT [facility] Zone Setting Detection Interval 360 ms [facility] Zone Setting Type Category ATRIAL_FIBRILLATI ON [facility] Zone Setting Type Category AT/AF [facility] Lead Channel Impedance Value 779 [...] Time of Measurements [facility] Battery SHRUB PLANTER Trigger 2.625 [facility] Battery Remaining [...] SYSTEM Episode Statistic Total Date Time Start [id number] [facility] Episode Statistic Total Date Time End [facility] Episode Statistic Total Date Time Start [facility] Episode Statistic Total Date Time End [facility] Episode Statistic Total Date Time Start [facility] Episode Statistic Total Date Time End [facility] Anatomical Region Laterality Modality Other 09/21/2023 10:5 2 PM MANAGER SERVICES Narrative 09/25/2023 4:10 PM MANAGER SERVICES PURPOSE OF VISIT: ??Routine remote transmission. PRESENTING EGM: ??CLOCK ASSEMBLER at 60 bpm with a PVC. VENTRICULAR ARRHYTHMIAS: ?No new events. BATTERY LONGEVITY: Expected battery longevity trends reviewed and are stable and consistent with device settings and use. SUMMARY: All device function appears normal. FOLLOW UP: Next routine follow-up will be in 3 months via [employer] transmission. DEVICE RN: Medhat Ramirez RN Provider [...] documented as of this encounter Care Teams Supervisor Pumping Station Relationship Specialty Start Date End Date Elsewhere, Pcp PCP - General Internal Medicine 09/13/22 documented as of this encounter
--- OUTSIDE RECORDS SUMMARY | 2023-12-04 06:44 | XMS_ITS ---
Author Name Unknown Organization [facility] Address [address] [place] [address] Care Team Providers Care Fund Development Manager Name Role Phone Elsewhere, Pcp Primary [...] Papillary 02/10/20 17 Anemia Of Renal Failure Pharmacy Grad Intern nirmala Kidney Disease On Erythropoietin 01/30/2017 Flutter Atrial 01/30/2017 Current Oncology Plans No current plan information found. Past Plans Radiation Treatments * No radiation treatments are documented for this patient in [facility]. Treatments may have been administered in another [...]
--- OUTSIDE RECORDS SUMMARY | 2023-12-04 06:44 | XMS_ITS | Encounter Summary ---
Author Name Unknown Organization [facility] Address [address] [place] [address] Care Team Providers Care Flatlock Sewing Machine Operator Name Role Phone Elsewhere, Pcp Primary Care Provider Unavailabl e Reason for Visit * Appointment Request (Routine) - Closed Specialty Diagnoses / Procedures Referred By Jessica patel Referred To Contact Nephrology and Hypertension Referral ID Status Reason Start Date Expiration Date Visits Re quested Visits Authorized [id number] Closed 08/25/2023 08/24/2024 1 1 Encounter Details Date Type Department Care Team (Latest Contact Info) Description 09/25/2023 3:00 PM MENTAL HEALTH ASSOCIATE External Outreach Division of Nephrology and Hypertension in [place], [place] [address] [place] [address] Eddie Sheffield Jr., D.O. [address] [place] [address] Hypertension And Chronic Kidney Disease Stage 4 [...] often do you attend chur ch or pentecostalism services? 1 to 4 times [...] Answer Date Recorded PHQ-2 Score 5 01/25/2019 [facility] [place] of Occupat ional Health - Occupational Stress [...] Comments Blood Pressure 138/86 09/25/2023 3:03 PM MENTAL HEALTH ASSOCIATE Pulse 73 09/25/2023 3:03 PM MENTAL HEALTH ASSOCIATE Temperature - - Respiratory Rate - - Oxygen Saturation - - Inhaled Oxygen Concentration - - Weight 72 kg (158 lb 12.8 oz) 09/25/2023 3:03 PM MENTAL HEALTH ASSOCIATE Height 170.1 cm (5' 6.97) 09/25/2023 3:03 PM CS T Body Mass Index 24.89 09/25/2023 3:03 PM MENTAL HEALTH ASSOCIATE documented in this encounter Progress Notes * Edide Sheffield Jr., D.O. - 09/25/2023 3:00 PM CST Referring Provider: ELSEWHERE, PCP SUBJECTIVE REASON FOR VISIT [facility] Follow-up regards CKD [...] tablet by mouth daily. Centrum (per director institution) , Disp: , Rfl: omeprazole (PriLOSEC) 20 [...] Time: 25 minutes Eddie Sheffield Jr., D.O. AL HEALTH ASSOCIATE documented in this encounter Plan of Treatment Upcoming Encounters Date Type Department Care Team (Latest Contact Info) Description 12/04/2023 10:30 AM CDT Clinical Communication Virtual Review in [place], [place] [address] [place] [phone] 12/06/2023 7:40 AM CDT Lab Department of Laboratory Medicine and Pathology, [facility], in [place], [place] [address] [place] [address] Jemal Murrell M.B.B.SDavis, M.D. [address] [place] [phone] 12/06/2023 8:00 AM CDT Appointment Department of Radiology, [place], [place] [address] [place] [phone] Jemal Murrell M.B.B.S., M.D. [address] [place] [phone] Discharge Disposition: Home or Self Care 12/06/2023 9:20 AM CDT Appointment Department of Radiology, [facility] in [place], [place] [address] [place] [phone] Jemal Murrell M.B.B.S., M.D. [address] [place] [phone] 12/06/2023 10:00 AM CDT Appointment Department of Radiology, [facility] in [place], [place] [address] [place] [phone] Jemal Murrell M.B.B.S., M.D. [address] [place] [phone] 12/06/2023 1:30 PM CDT Office Visit Division of Endocrinology in [place], [place] [address] [place] [phone] Zara Garvey APRN, C.N.P., D.N.P. [address] [place] [phone] documented as of this encounter Visit Diagnoses [...] documented as of this encounter Care Teams Flatlock Sewing Machine Operator Relationship Specialty Start Date End Date Elsewhere, Pcp PCP - General Internal Medicine 09/13/22 documented as of this encounter
== END 2023-12-02 10:05 | disposition home or self-care (01) ==
LOC: NFLDREF 12-04 06:41
PROVIDERS: PCP Family Medicine; Referring Provider Family Medicine; Visit Provider Registered Nurse
DX: N39.0 Urinary tract infection, site not specified (principal)
CPT/HCPCS: 87086; 87186

== ENCOUNTER 2023-12-11 13:03 | Outpatient (CLI) | payer MEDICARE, SELFPAY ==
--- OUTSIDE RECORDS SUMMARY | 2023-12-13 06:55 | XMS_ITS ---
Author Name Unknown Organization [facility] Address [address] [place] [address] Care Team Providers Care Mate First Name Role Phone Elsewhere, Pcp Primary Care [...] Papillary 02/10/20 17 Anemia Of Renal Failure Awning Installer nirmala Kidney Disease On Erythropoietin 01/30/2017 Flutter Atrial 01/30/2017 Current Oncology Plans No current plan information found. Past Plans Radiation Treatments * No radiation treatments are documented for this patient in [facility]. Treatments may have been administered [...]
--- OUTSIDE RECORDS SUMMARY | 2023-12-13 06:55 | XMS_ITS | Referral Summary ---
Author Name Unknown Organization [facility] Address [address] [place] [address] Care Team Providers Care Clinical Reimbursement Specialist Name Role Phone Elsewhere, Pcp Primary Care Provider Unavailabl e Source Comments Patient records contain information from all sites at [facility]. For routine questions regarding patient records, call [phone] during business hours, M-F 8:00 AM - 5:00 PM Central Time. Record requests for emergency care only can be directed to [phone] at any time.[facility] Encounters Date Type Department Care Team Description 12/06/2023 9:33 AM CDT - 12/06/2023 11:59 PM CDT Hospital Encounter Department of Radiology, [facility] in [place], [place] [address] [place] [phone] Jemal Murrell M.B.B.S., M.D. Malignant Neoplasm Of Thyroid Papillary (HCC) Discharge Disposition: Home or Self Care 12/06/2023 8:59 AM CDT - 12/06/2023 9:32 AM CDT Hospital Encounter Department of Radiology, [facility] in [place], [place] [address] [place] [address] Jemal Murrell M.B.B.S., M.D. Malignant Neoplasm Of Thyroid Papillary (HCC) Discharge Disposition: Home or Self Care 12/06/2023 8:00 AM CDT - 12/06/2023 8:58 AM CDT Hospital Encounter Department of Radiology, [facility], in [place], [place] [address] [place] [address] Jemal Murrell M.B.B.S., M.D. Malignant Neoplasm Of Thyroid Papillary (HCC) Discharge Disposition: Home or Self Care 12/04/2023 10:30 AM CDT Clinical Communication Virtual Review in [place], [place] [address] [place] [address] Pre-visit Intake 09/25/2023 3:00 PM ROPEMAN External Outreach Division of Nephrology and Hypertension in [address] [phone] Eddie Sheffield Jr., D.O. 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 Encounter For Checking And Testing Of Cardiac Pacemaker Pulse Generator Battery Discharge Disposition: Home or Self Care from Last 3 Months Allergies Active Allergy Reactions Criticality Noted Date Comments Iodinated Contrast Media Other (see comments) High 10/05/2017 Renal Failure, Unknown type of dye Lorazepam Other (see comments) 10/05/2017 Methimazole Other (see comments) 03/26/2012 Had liver tests increase significantly Trazodone Anxiety 06/01/2017 per family/ patient, on [...] tablet by mouth daily. Centrum (per field service specialist) 10/09/2017 Active acetaminophen (TYLENOL) 500 [...] on Sundays. 90 tablet 3 05/18/2023 Active vitamin B complex-folic acid (B Complex 1, with folic acid,) 0.4 mg tablet Take 1 tablet by mouth daily. 12/16/2016 Active diphenhydrAMINE-ac etaminophen (TYLENOL PM) 25-500 mg per tablet Take 1 tablet by mouth at bedtime as needed. 12/16/2016 Active Active Problems Problem Noted Date Diagnosed [...] Papillary 02/10/20 17 Anemia Of Renal Failure Nursery Manager nirmala Kidney Disease On Erythropoietin 01/30/2017 [...] 0 01/12/1954 - 01/16[birth year]1985 Smokeless Tobacco: Never Tobacco Cessation:Counseling Given: Not Answered Alcohol Use Standard Drinks/Week Comments Yes 10 (1 standard drink = 0.6 oz pu re alcohol) occassional [facility] Utilities Answer Date Recorded In the past 12 months has e electric, gas, oil, or water company threatened to [...] How often do you attend chur or zoroastrian services? 1 to 4 times per year 08/07/2022 Do you belong to any clubs o r organizations such as jain groups, unions, fraternal or athletic groups, or [...] Answer Date Recorded PHQ-2 Score 5 01/25/2019 [facility] of Occupat ionga Health - Occupational Stress Questionnaire Answer Date [...] your living situation today? I have a [facility] place to live 12/01/2023 Education Answer [...] Comments Blood Pressure 138/86 09/25/2023 3:03 PM ROPEMAN Pulse 73 09/25/2023 3:03 PM ROPEMAN Temperature 36.6 ??C (97.9 ??F) 04/10/2023 10:00 AM C DT Respiratory Rate 16 04/10/2023 6:41 AM CDT Oxygen Saturation 94% 04/10/2023 10:10 AM CDT Inhaled Oxygen Concentration - - Weight 72 kg (158 lb 12.8 oz) 09/25/2023 3:03 PM ROPEMAN Height 170.1 cm (5' 6.97) 09/25/2023 3:03 PM CS T Body Mass Index 24.89 09/25/2023 3:03 PM ROPEMAN Plan of Treatment Upcoming Encounters Date Type Department Care Team (Late st Contact Info) Description 12/14/2023 3:00 PM CDT Virtual Visit Division of Endocrinology in [place], [place] [address] [place] [address] Zara Garvey, ROSAURA, C.N.P., D.N.P. [address] [place] [address] Medical Devices Implanted Type Area Plug Making Operator Device Identifier Shelf Expiration Date Model / Serial / Lot Lead [id number] Facilities Clerk Attain Ability - Darling [id number] Implanted:Qty: 1 on 10/09/2017 Cardiac Lead Coronary Medtronic / [id number] / Description:Device Manufactu rer - [email or web address]. Body Location - Other. Coronary Sinus. Device Status Text - CARD [id number]. Conversions - Default Historical Implant Device Implanted:03/07 (Quantity not on file) Cardiac Valve Prosthesis Aorta Description:Device Status Te xt - CardValve. pig valve placed on 11-16-2016. Mesh Or Patch-08/14/2022 Implanted:08/14 (Quantity not on file) Mesh or Patch Stomach Description:Hernia Mesh 2 Dental Bridges Misc Other Mouth Description:Upper and Lower Dental Bridge. Pacer Justin Xt Sr Mri - Darling [id number] Implanted:Qty: 1 on 10/09/2017 Pacemaker Other/Legacy - See Implant Description Medtronic / [id number] / Description:Device Manufactu rer - [email or web address]. Body Location - Other. Left. Device Status Text - PACEMAKER-[id number]. Vascular Other-08/14/2016 Implanted:08/14 (Quantity not on file) Vascular Other Right: Arm Description:A/V fistula Procedures Procedure Name Priority Date/Time Associated Diagnosis Comments CT CHEST WITHOUT IV CONTRAST RAD - Routine (most inpatients and all outpatients) 12/06/2023 10:04 AM CDT Malignant Neoplasm Of Thyroid Papillary (HCC) BMD BONE DENSITY SPINE HIPS RAD - Routine (most inpatients and all outpatients) 12/06/2023 9:46 AM CDT Malignant Neoplasm Of Thyroid Papillary (HCC) US HEAD NECK SOFT TISSUE RAD - Routine (most inpatients and all outpatients) 12/06/2023 8:51 AM CDT Malignant Neoplasm Of Thyroid Papillary (HCC) MT THYROGLOBULIN SERUM Routine 12/06/2023 7:57 AM CDT THYROGLOBULIN, TM, REFLEX TO LC-MS/MS OR IMMUNOASSAY, S Routine 12/06/2023 7:57 AM CDT Malignant Neoplasm Of Thyroid Papillary (HCC) T4 (THYROXINE), FREE, S Routine 12/06/2023 7:57 AM CDT Malignant Neoplasm Of Thyroid Papillary (HCC) THYROID-STIMULATING HORMONE-SENSITIVE (S-TSH) Routine 12/06/2023 7:57 AM CDT Malignant Neoplasm Of Thyroid Papillary (HCC) PACER REMOTE FOLLOW UP Routine 09/22/2023 3:09 PM ROPEMAN Encounter For Checking And Testing Of Cardiac Pacemaker Pulse Generator Battery SODIUM, S/P Routine 05/02/2023 9:28 AM CDT Prosthesis Aortic Valve POTASSIUM, S/P Routine 05/02/2023 9:28 AM CDT Prosthesis Aortic Valve CREATININE WITH EGFR, S/P Routine 05/02/2023 9:28 AM CDT Prosthesis Aortic Valve from Last 3 Months or Most Recently Relevant to Health Maintenance Results * CT Chest without IV Contrast (12/06/2023 10:04 AM CDT) Anatomical Region Laterality Modality Chest, Thoracic RST LOS, Tho racic ARZ LOS, Thoracic FLA LOS N/A Computed Tomography, Compute d Tomography Impressions 12/06/2023 11:35 AM CDT 1. Numerous tiny pulmonary nodules measuring up to 6 mm are stable. 2. 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 Narrative 12/06/2023 11:35 AM CDT EXAM: CT CHEST WITHOUT IV CONTRAST COMPARISON: Chest CT 02/01/2023. FINDINGS: Numerous solid noncalcified pulmonary nodules throughout both lungs are stable with examples including a 6 mm nodule in the posterior right lower lobe (series 3 image 429), 6 mm nodule in the left lower lobe (3/281) and 6 mm nodule more superiorly in the left lower lobe (3/257). No new or enlarging pulmonary nodules. Stable micronodularity in the posterior basal right lower lobe, which is likely post infectious/inflammatory in etiology. Numerous calcified pulmonary granulomas. Mild upper lung predominant centrilobular and paraseptal emphysema. Atelectasis and/or scarring in the lower lungs, greater on the left. No pleural effusion. Mildly prominent mediastinal nodes are unchanged such as a 9 mm lower left paratracheal node (/203). No new lymphadenopathy. Postoperative changes of aortic valve replacement and ascending thoracic aorta graft repair. 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 Arterial calcification including the coronary arteries. Single lead cardiac pacemaker. Stable cardiomegaly. Prior thyroidectomy. Sternotomy. Hypertrophic degenerative change in the spine. Benign bone island posterolateral right ninth rib. Stable fat density lesion along the hepatic dome. Calcified hepatic granuloma. Cholecystectomy. Negative adrenal glands. 3D maximum intensity projection (MIP) images were created on a dependent workstation as ordered by the treating provider and reviewed by the radiologist to increase sensitivity for detection of pulmonary nodules. Procedure Note Hieu Miles M.D. - 12/06/2023 EXAM: CT CHEST WITHOUT IV CONTRAST COMPARISON: Chest CT 02/01/2023. FINDINGS: Numerous solid noncalcified pulmonary nodules throughout both lungs arestable with examples including a 6 mm nodule in the posterior right lowerlobe (series 3 image 429), 6 mm nodule in the left lower lobe (3/281) and6 mm nodule more superiorly in the left lower lobe (3/257). No new or enlarging pulmonary nodules. Stablemicronodularity in the posterior basal right lower lobe, which is likelypost infectious/inflammatory in etiology. Numerous calcified pulmonarygranulomas. Mild upper lung predominant centrilobular and paraseptal emphysema.Atelectasis and/or scarring in the lower lungs, greater on the left. Nopleural effusion. Mildly prominent mediastinal nodes are unchanged such as a 9 mm lower leftparatracheal node (). No new lymphadenopathy. Postoperative changes of aortic valve replacement and ascending thoracicaorta graft repair. No change in the chronic large ascending aorticpseudoaneurysm. Arterial calcification including the coronary arteries.Single lead cardiac pacemaker. Stable cardiomegaly. Prior thyroidectomy. Sternotomy. Hypertrophic degenerative change in the spine. Benign boneisland posterolateral right ninth rib. Stable fat density lesion along the hepatic dome. Calcified hepaticgranuloma. Cholecystectomy. Negative adrenal glands. 3D maximum intensity projection (MIP) images were created on a dependentworkstation as ordered by the treating provider and reviewed by theradiologist to increase sensitivity for detection of pulmonary nodules. IMPRESSION: 1. Numerous tiny pulmonary nodules measuring up to 6 mm are stable. 2. Stable postoperative changes of aortic valve replacement and ascendingthoracic aorta graft repair with no change in the chronic large ascendingaortic pseudoaneurysm. Jemal Garcia, M.D. I MG CT PROCEDURES * BMD Bone Density Spine Hips (12/06/2023 9:46 AM CDT) Anatomical Region Laterality Modality Hip, Lumbar Spine, Nuclear M edicine RST LOS, Musculoskeletal ARZ LOS, Muskuloskeletal FLA LOS N/A Radio graphic Imaging Impressions 12/06/2023 11:38 AM CDT Low bone density (Osteopenia) Narrative 12/06/2023 11:38 AM CDT EXAM: ??BMD BONE DENSITY SPINE HIPS Bone Mineral Density (BMD) analysis performed on [employer] with serial number [id number]. ? FINDINGS: Left Hip: Femur Neck: BMD = 0.887 g/cm2 T-score = -1.1 ?Z-score = 0.4 Total Hip: BMD = 0.944 g/cm2 T-score = -0.5 ?Z-score = 0.3 Right Hip: Femur Neck: BMD = 0.842 g/cm2 T-score = -1.4 ?? Z-score = 0.0 Total Hip: BMD = 0.931 g/cm2 T-score = -0.6 ?Z-score = 0.2 Lumbar Spine: L1: BMD = 0.858 g/cm2 L2: BMD = 1.089 g/cm2 L3: BMD = 1.330 g/cm2 L4: BMD = 1.361 g/cm2 Total Lumbar Spine (L1-L2): BMD = 0.974 g/cm2 T-score = -1.7 ?Z-score = -1.0 ? Trabecular Bone Score: L1-L2: TBS = 1.300 < 1.23: low 1.23 -1.31: borderline ?? > 1.31: normal ?? A low TBS has been associated with increased risk of fractures in certain populations. TBS should not be used alone to determine treatment recommendations. It can be used in conjunction with BMD and FRAX to inform management. Please note: A more comprehensive DXA report, including images and graphs, is available in [employer]. In the absence of other causes of low BMD or demonstrated skeletal fragility, osteoporosis may be diagnosed in post-menopausal women and men at or above age 50 when the T-score is at or below -2.5 as defined by the WHO. Low bone density is present at T-scores between -1 and -2.5. The diagnosis in pre-menopausal women and men < age 50 can be based on low bone density or evidence of skeletal fragility in the appropriate clinical setting. Based on the bone density results, and on the patient's answers to the Fracture Risk Assessment questionnaire (please refer to appropriate image stored in the BMD study in [employer]), the calculated ten year probability of fracture is: FRAX Risk Factors: None FRAX (10 yr probability) adjusted for TBS: Major Osteoporotic Fracture: ??8.4 % Hip Fracture: ?3.5 % ? Degenerative changes are present which may spuriously elevate the spine BMD measurement. Procedure Note Kayleigh Mcgee M.D. - 12/06/2023 EXAM: BMD BONE DENSITY SPINE HIPS Bone Mineral Density (BMD) analysis performed on rateGeniusXA with serialnumber [id number]. FINDINGS: Left Hip: Femur Neck: BMD = 0.887 g/cm2 T-score = -1.1 Z-score = 0.4 Total Hip: BMD = 0.944 g/cm2 T-score = -0.5 Z-score = 0.3 Right Hip: Femur Neck: BMD = 0.842 g/cm2 T-score = -1.4 Z-score = 0.0 Total Hip: BMD = 0.931 g/cm2 T-score = -0.6 Z-score = 0.2 Lumbar Spine: L1: BMD = 0.858 g/cm2 L2: BMD = 1.089 g/cm2 L3: BMD = 1.330 g/cm2 L4: BMD = 1.361 g/cm2 Total Lumbar Spine (L1-L2): BMD = 0.974 g/cm2 T-score = -1.7 Z-score = -1.0 Trabecular Bone Score: L1-L2: TBS = 1.300 < 1.23: low 1.23 -1.31: borderline > 1.31: normal A low TBS has been associated with increased risk of fractures in certainpopulations. TBS should not be used alone to determine treatmentrecommendations. It can be used in conjunction with BMD and FRAX to informmanagement. Please note: A more comprehensive DXA report, including images and graphs,is available in [employer]. In the absence of other causes of low BMD or demonstrated skeletalfragility, osteoporosis may be diagnosed in post-menopausal women and menat or above age 50 when the T-score is at or below -2.5 as defined by theWHO. Low bone density is present at T-scores between -1 and -2.5. The diagnosis in pre-menopausal women andmen < age 50 can be based on low bone density or evidence of skeletalfragility in the appropriate clinical setting. Based on the bone density results, and on the patient's answers to theFracture Risk Assessment questionnaire (please refer to appropriate imagestored in the BMD study in QREADS), the calculated ten year probability offracture is: FRAX Risk Factors: None FRAX (10 yr probability) adjusted for TBS: Major Osteoporotic Fracture: 8.4 % Hip Fracture: 3.5 % Degenerative changes are present which may spuriously elevate the spineBMD measurement. IMPRESSION: Low bone density (Osteopenia) Jemal Garcia, MDavisD. I MG DXA PROCEDURES * US Head Neck Soft Tissue (12/06/2023 8:51 AM CDT) Anatomical Region Laterality Modality Head and Neck, Ultrasound RS T LOS, Ultrasound ARZ LOS, Ultrasound FLA LOS N/A Ultrasound Impressions 12/06/2023 9:06 AM CDT No recurrent or metastatic disease. Narrative 12/06/2023 9:06 AM CDT EXAM: US HEAD NECK SOFT TISSUE COMPARISON: 02/01/2023 FINDINGS: Thyroidectomy. Tiny avascular nodule in the right thyroid bed has decreased in size since 02/01/2023 and is likely a normal lymph node. Slender avascular lymph node in the lower left thyroid bed. No suspicious nodules in the thyroid bed. No cervical adenopathy. Procedure Note Pipo Boykin M.D. - 12/06/2023 EXAM: US HEAD NECK SOFT TISSUE COMPARISON: 02/01/2023 FINDINGS: Thyroidectomy. Tiny avascular nodule in the right thyroid bed hasdecreased in size since 02/01/2023 and is likely a normal lymph node.Slender avascular lymph node in the lower left thyroid bed. No suspiciousnodules in the thyroid bed. No cervical adenopathy. IMPRESSION: No recurrent or metastatic disease. Jemal Garcia, M.D. I MG US PROCEDURES * (ABNORMAL) Thyroglobulin, Tumor Marker by Immunoassay (12/06/2023 7:57 AM CDT) Thyroglobulin, Tumor Marker, IA 4.4(H) ng/mL 12/06/2023 3:23 PM CDT [facility] Comment: ----REFERENCE VALUE---- Athyrotic <0.1 Intact Thyroid <=33 Thyroglobulin Interpretation SEE COMMENT 12/06/2023 3:23 PM CDT [facility] Comment: Thyroglobulin (Tg) levels must be interpreted [...] testing methods are immunoenzymatic assays manufactured by [employer]. and performed on the [employer] DXI 800. Values obtained from different assay methods or kits may be different and cannot be used interchangeably. The results cannot be interpreted as absolute evidence for the presence or absence of malignant disease. Blood 12/06/2023 7:57 AM CDT 12/06/2023 12:53 PM CDT Jemal Garcia M.D. L AB BLOOD NON ADD-ON [facility] [address] [place] [address] [facility] [address] [place] [address] * Thyroglobulin, Tumor Marker Reflex to LC-MS/MS or Immunoassay (12/06/2023 7:57 AM CDT) Thyroglobulin Antibody, S <1.8 <1.8 IU/mL 12/06/2023 2:00 PM CDT [facility] Comment: Thyroglobulin Antibody < 1.8 IU/mL. Thyroglobulin performed by Immunoassay to follow. Blood (Blood, Venous) 12/06/2023 7:57 AM CDT 12/06/2023 12:53 PM CDT Alek Edward AB BLOOD NON ADD-ON [facility] [address] [place] [address] [facility] [address] [place] [address] * S-TSH (Thyroid-Stimulating Hormone - Sensitive) (12/06/2023 7:57 AM CDT) TSH, Sensitive 3.6 0.3 - 4.2 mIU/L 12/06/2023 8:56 AM CDT DTL Blood (Blood, Venous) 12/06/2023 7:57 AM CDT 12/06/2023 8:26 AM CDT Alek Edward AB BLOOD ADD-ON Performing Organization Address City/[facility] Co de Phone Number [facility] [address] [place] [address] * (ABNORMAL) T4 (Thyroxine), Free (12/06/2023 7:57 AM CDT) T4 (Thyroxine), Free, S 1.9(H) 0.9 - 1.7 ng/dL 12/06/2023 8:56 AM CDT DTL Blood (Blood, Venous) 12/06/2023 7:57 AM CDT 12/06/2023 8:26 AM CDT Alek Edward AB BLOOD ADD-ON [facility] [address] [place] [address], [facility] [address] [place] [address] * PACER REMOTE FOLLOW UP (09/22/2023 3:09 PM ROPEMAN) Date Time Interrogation Session [id number] [facility] Implantable Pulse Generator Plug Making Operator Med[employer] [facility] Implantable Pulse Generator Model [id number] Justin XT SR MRI [facility] Implantable Pulse Generator Serial Number [id number] [facility] Type Interrogation Session Remote [facility] Clinic Name [facility] Implantable Pulse Generator Type Pacemaker [facility] Implantable Pulse Generator Implant Date 20171009 [facility] Implantable Lead Plug Making Operator Medtronic [facility] Implantable Lead Model 4196 Attain Ability MRI SureScan [facility] Implantable Lead Serial Number [id number] [facility] Implantable Lead Implant Date 20171009 [facility] Implantable Lead Polarity Type Bipolar Lead [facility] Implantable Lead Location Detail 1 UNKNOWN [facility] Implantable Lead Special Function Lead length: 88 cm [facility] Implantable Lead Location Left Ventricle [facility] Cholo Setting Mode (NBG Code) VVIR [facility] Cholo Setting Lower Rate Limit 60 {beats}/ min [facility] Cholo Setting Maximum Sensor Rate 130 {beats}/ min [facility] Lead Channel Setting Sensing Polarity Bipolar [facility] Lead Channel Setting Sensing Anode Location Right Ventricle [facility] Lead Channel Setting Sensing Anode Terminal Ring [facility] Lead Channel Setting Sensing Cathode Location Right Ventricle [facility] Lead Channel Setting Sensing Cathode Terminal Tip [facility] Lead Channel Setting Sensing Sensitivity 0.9 mV [facility] Lead Channel Setting Pacing Polarity Bipolar [facility] Lead Channel Setting Pacing Anode Location Right Ventricle [facility] Lead Channel Setting Pacing Anode Terminal Ring [facility] Lead Channel Setting Sensing Cathode Location Right Ventricle [facility] Lead Channel Setting Sensing Cathode Terminal Tip [facility] Lead Channel Setting Pacing Pulse Width 0.4 ms [facility] Lead Channel Setting Pacing Amplitude 3 V [facility] Lead Channel Setting Pacing Capture Mode Adaptive [facility] Zone Setting Type Category VF [facility] Zone Setting Type Category VT [facility] Zone Setting Type Category VT [facility] Zone Setting Type Category VT [facility] Zone Setting Detection Interval 360 ms [facility] Zone Setting Type Category ATRIAL_FIBRILLATI [...] Time of Measurements [facility] Battery [employer] P[employer]ER Trigger 2.625 [facility] Battery Remaining [...] Laterality Modality Other 09/21/2023 10:5 2 PM ROPEMAN Narrative 09/25/2023 4:10 PM ROPEMAN PURPOSE OF VISIT: ??Routine remote transmission. PRESENTING EGM: ??CAR PILOT at 60 bpm with a PVC. VENTRICULAR [...] DEVICE * Sodium (05/02/2023 9:28 AM CDT) [facility] Sodium, S 142 135 - 145 mmol/L 05/02/2023 10:49 AM CDT DTL Blood (Blood, Venous) 05/02/2023 9:28 AM CDT 05/02/2023 10:09 AM CDT Devi Stafford APRN, C.N.P., M.S.N. LAB BLOOD ADD-ON Performing Organization Address City/[facility]/ZIP Co de Phone Number [facility] [address] [place] [address], [facility] [address] [place] [address] * Potassium (05/02/2023 9:28 AM CDT) [facility] Potassium, S 4.7 3.6 - 5.2 mmol/L 05/02/2023 10:49 AM CDT DT Blood (Blood, Venous) 05/02/2023 9:28 AM CDT 05/02/2023 10:09 AM CDT Seven Barnard APRNNTripp., M.S.N. LAB BLOOD ADD-ON Performing Organization Address City/[facility]/ZIP Co de Phone Number [facility] [address] [place] [address] * (ABNORMAL) Creatinine with Estimated GFR (05/02/2023 9:28 AM CDT) Creatinine 2.09(H) 0.74 - 1.35 mg/dL 05/02/2023 10:49 AM CDT DTL Estimated GFR (eGFR) 31(L) >=60 mL/min/BSA 05/02/2023 10:49 AM CDT DTL Comment: Estimated GFR calculated using the 2020 CKD_EPI creatinine equation. Blood (Blood, Venous) 05/02/2023 9:28 AM CDT 05/02/2023 10:09 AM CDT Jass Barnard APRN.N.Marilee., M.S.N. 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
--- OUTSIDE RECORDS SUMMARY | 2023-12-13 06:55 | XMS_ITS | Clinical Summary ---
Author Name Unknown Organization [facility] Address [address] [place] [address] Care Team Providers Care Teller Coordinator Name Role Phone Elsewhere, Pcp Primary Care Provider Unavailabl e Source Comments Patient records contain information from all sites at [facility]. For routine questions regarding patient records, call [phone] during business hours, M-F 8:00 AM - 5:00 PM Central Time. Record requests for emergency care only can be directed to [phone] at any time.[facility] Allergies Active Allergy Reactions Criticality [...] 1 tablet by mouth daily. Centrum (per stereo equipment installer) 10/09/2017 Active acetaminophen (TYLENOL) 500 mg tablet [...] Papillary 02/10/20 17 Anemia Of Renal Failure Medical Transcriptionist nirmala Kidney Disease On Erythropoietin 01/30/2017 Flutter [...] PM CDT Hospital Encounter Department of Radiology, [place], [place] [address] [place] [phone] Jemal Murrell M.B.B.S., M.D. Malignant Neoplasm Of Thyroid Papillary (HCC) Discharge Disposition: Home or Self Care 12/06/2023 8:59 AM CDT - 12/06/2023 9:32 AM CDT Hospital Encounter Department of Radiology, [place], [place] [address] [place] [address] Jemal Murrell M.B.B.S., M.D. Malignant Neoplasm Of Thyroid Papillary (HCC) Discharge Disposition: Home or Self Care 12/06/2023 8:00 AM CDT - 12/06/2023 8:58 AM CDT Hospital Encounter Department of Radiology, [place], [place] [address] [place] [address] Jemal Murrell M.B.B.S., M.D. Malignant Neoplasm Of Thyroid Papillary (HCC) Discharge Disposition: Home or Self Care 12/04/2023 10:30 AM CDT Clinical Communication Virtual Review in [place], [place] 200 [place] [address] Pre-visit Intake 09/25/2023 3:00 PM SOCIAL SCIENTIST External Outreach Division of Nephrology and Hypertension in [place], [place] [address] [place] [phone] Eddie Sheffield Jr., D.Filiberto Hypertension And Chronic Kidney Disease Stage 4 (HCC) (Primary Dx); Hyperparathyroidism Renal Secondary (HCC); Malignant Neoplasm Of Thyroid Papillary (HCC); Atrial Fibrillation Permanent (HCC); Chronic Systolic (Congestive) Heart Failure (HCC); Anticoagulant Therapy 09/22/2023 4:00 AM SOCIAL SCIENTIST - 09/22/2023 11:59 PM SOCIAL SCIENTIST Hospital Encounter Department of Cardiovascular Diseases in [place], [place] [address] [place] [phone] Ernesto Xiao M.B., B.Ch., B.A.O. Encounter For [...] = 0.6 oz pu re alcohol) occassional [facility] Utilities Answer Date Recorded In the past 12 months has e electric, gas, oil, or water [employer] threatened to shut off services in your [...] How often do you attend [facility] or muslim services? 1 to 4 times per year [...] Answer Date Recorded PHQ-2 Score 5 01/25/2019 [facility] - [...] your living situation today? I have a [facility] place to live 12/01/2023 Education Answer [...] Comments Blood Pressure 138/86 09/25/2023 3:03 PM SOCIAL SCIENTIST Pulse 73 09/25/2023 3:03 PM SOCIAL SCIENTIST Temperature 36.6 ??C (97.9 ??F) 04/10/2023 10:00 AM C DT Respiratory Rate 16 04/10/2023 6:41 AM CDT Oxygen Saturation 94% 04/10/2023 10:10 AM CDT Inhaled Oxygen Concentration - - Weight 72 kg (158 lb 12.8 oz) 09/25/2023 3:03 PM SOCIAL SCIENTIST Height 170.1 cm (5' 6.97) 09/25/2023 3:03 PM CS T Body Mass Index 24.89 09/25/2023 3:03 PM SOCIAL SCIENTIST Plan of Treatment Upcoming Encounters Date Type Department Care Team (Late st Contact Info) Description 12/14/2023 3:00 PM CDT Virtual Visit Division of Endocrinology in [place], [place] [address] [place] [address] Zara Garvey APRN, C.N.P., D.N.P. [address] [place] [address] Health Maintenance Due Date Last Done Comments COVID-19 Vaccine (2022-2 4 season) 2023 12/27/2021, 06/09/2021, 10/22/2020, Additional history exists Depression Screening (Annual PHQ-2) 08/14/2023 Fall Risk Screen (Annual) 08/14/2023 Creatinine Level (Kidney Fun ction Test) 05/02/2024 05/02/2023, 05/03/2022, 07/21/2021, Additional history exists Potassium Level 05/02/2024 05/02/2023, 04/15, 07/21/2021, Additional history exists Sodium Level 05/02/2024 05/02/2023, 04/15, 07/21/2021, Additional history exists Office Visit for Blood Press ure Check / Re-check 09/25/2024 09/25/2023 Thyroid Stimulating Hormone (TSH) test for thyroid function 12/05/2024 12/06/2023, 02/01/2023, 09/06/2022, Additional history exists DTaP,Tdap,and Td Vaccines (3 - Td or Tdap) 02/08/2032 02/07/2022, 06/20/2012 Pneumococcal vaccine (65+ years) Completed 09/16/19 15, 06/27/2008 Zoster Vaccines Completed 05/13/2019, 01/21/2019 Influenza Vaccine Completed 06/06/2023, , 05/14/2021, Additional history exists Medical Devices Implanted Type Area Vessel Manager Device Identifier Shelf Expiration Date Model / Serial / Lot Lead [id number] Package Sorter Attain Ability - Darling [id number] Implanted:Qty: 1 on 10/09/2017 Cardiac Lead Coronary Medtronic / [id number] / Description:Device Manufactu rer - Medtronic [employer]. Body Location - Other. Coronary Sinus. Device Status Text - CARD [id number]. Conversions - Default Historical Implant Device Implanted:03/07 (Quantity not on file) Cardiac Valve Prosthesis Aorta Description:Device Status Te xt - CardValve. pig valve placed on 11-16-2016. Mesh Or Patch-08/14/2022 Implanted:08/14 (Quantity not on file) Mesh or Patch Stomach Description:Hernia Mesh 2 Dental Bridges Misc Other Mouth Description:Upper and Lower Dental Bridge. Pacer Preeti Xt Sr Mri - Darling [id number] Implanted:Qty: 1 on 10/09/2017 Pacemaker Other/Legacy - See Implant Description Medtronic / [id number] / Description:Device Manufactu rer Buddy[employer]. Body Location - Other. Left. Device Status Text - [id number]. Vascular Other-08/14/2016 Implanted:08/14 (Quantity not on file) [...] CDT Malignant Neoplasm Of Thyroid Papillary (HCC) [place] THYROGLOBULIN SERUM Routine 12/06/2023 7:57 AM CDT THYROGLOBULIN, TM, REFLEX TO LC-MS/MS OR IMMUNOASSAY, S Routine 12/06/2023 7:57 AM CDT Malignant Neoplasm Of Thyroid Papillary (HCC) T4 (THYROXINE), FREE, S Routine 12/06/2023 7:57 AM CDT Malignant Neoplasm Of Thyroid Papillary (HCC) THYROID-STIMULATING HORMONE-SENSITIVE (S-TSH) Routine 12/06/2023 7:57 AM CDT Malignant Neoplasm Of Thyroid Papillary (HCC) PACER REMOTE FOLLOW UP Routine 09/22/2023 3:09 PM SOCIAL SCIENTIST Encounter For Checking And Testing Of Cardiac [...] a 9 mm lower left paratracheal node (). No new lymphadenopathy. Postoperative changes [...] as a 9 mm lower leftparatracheal node (203). No new lymphadenopathy. Postoperative changes of aortic [...] in the chronic large ascendingaortic pseudoaneurysm. Jemal Garcia M.D. I MG CT PROCEDURES * BMD [...] Bone Mineral Density (BMD) analysis performed on [employer] with serial number [id number]. ? FINDINGS: Left Hip: Femur Neck: BMD [...] including images and graphs, is available in Xeround. In the absence of other causes of [...] Bone Mineral Density (BMD) analysis performed on [employer] with serialnumber [id number]. FINDINGS: Left Hip: Femur Neck: BMD = [...] report, including images and graphs,is available in QREADS. In the absence of other causes of [...] IMPRESSION: Low bone density (Osteopenia) Jemal Garcia, M.D. I MG DXA PROCEDURES * US Head [...] No recurrent or metastatic disease. Jemal Garcia, Alek I MG US PROCEDURES * (ABNORMAL) Thyroglobulin, Tumor Marker by Immunoassay (12/06/2023 7:57 AM CDT) Thyroglobulin, Tumor Marker, IA 4.4(H) ng/mL 12/06/2023 3:23 PM CDT [facility] Comment: ----REFERENCE VALUE---- Athyrotic <0.1 Intact Thyroid <=33 Thyroglobulin Interpretation SEE COMMENT 12/06/2023 3:23 PM CDT [facility] Comment: Thyroglobulin (Tg) levels must be interpreted [...] testing methods are immunoenzymatic assays manufactured by [employer]. and performed on the [employer] DXI 800. Values obtained from different assay methods or kits may be different and cannot be used interchangeably. The results cannot be interpreted as absolute evidence for the presence or absence of malignant disease. Blood 12/06/2023 7:57 AM CDT 12/06/2023 12:53 PM CDT Jemal Garcia, Alek L AB BLOOD NON ADD-ON Performing Organization Address [facility] Co de Phone Number [facility] [address] [address] [facility] [address] [address] * Thyroglobulin, Tumor Marker Reflex to LC-MS/MS or Immunoassay (12/06/2023 7:57 AM CDT) Thyroglobulin Antibody, S <1.8 <1.8 IU/mL 12/06/2023 2:00 PM CDT [facility] Comment: Thyroglobulin Antibody < 1.8 IU/mL. Thyroglobulin performed by Immunoassay to follow. Blood (Blood, Venous) 12/06/2023 7:57 AM CDT 12/06/2023 12:53 PM CDT Jemal Garcia, Alek L AB BLOOD NON ADD-ON Performing Organization Address City/[facility]/ZIP Co de Phone Number [facility] [address] [address] [facility] [address] [address] [address] * S-TSH (Thyroid-Stimulating Hormone - Sensitive) (12/06/2023 7:57 AM CDT) TSH, Sensitive 3.6 0.3 - 4.2 mIU/L 12/06/2023 8:56 AM CDT DTL Blood (Blood, Venous) 12/06/2023 7:57 AM CDT 12/06/2023 8:26 AM CDT Jemal Garcia, Alek L AB BLOOD ADD-ON Performing Organization Address City/[facility]/ZIP Co de Phone Number [facility] [address] [place], [place] [phone] [place] [address] * (ABNORMAL) T4 (Thyroxine), Free (12/06/2023 7:57 AM CDT) T4 (Thyroxine), Free, S 1.9(H) 0.9 - 1.7 ng/dL 12/06/2023 8:56 AM CDT DTL Blood (Blood, Venous) 12/06/2023 7:57 AM CDT 12/06/2023 8:26 AM CDT Jemal Garcia, MYudy L AB BLOOD ADD-ON [facility] [address] [place], [place] [phone] [place] [address] [address] [place] [address] * PACER REMOTE FOLLOW UP (09/22/2023 3:09 PM SOCIAL SCIENTIST) Date Time Interrogation Session [id number] [facility] Implantable Pulse Generator Vessel Manager [employer] [facility] Implantable Pulse Generator Model [id number] XT SR MRI [facility] Implantable Pulse Generator Serial Number [id number] [facility] Type Interrogation Session Remote [facility] Clinic Name [facility] Implantable Pulse Generator Type Pacemaker [facility] Implantable Pulse Generator Implant Date [id number] [facility] Implantable Lead Vessel Manager Medtronic [facility] Implantable Lead Model 4196 Attain Ability MRI SureScan [facility] Implantable Lead Serial Number [id number] [facility] Implantable Lead [...] Lead Channel Setting Sensing Sensitivity 0.9 mV [facility] Lead Channel [...] Lead Channel Setting Pacing Amplitude 3 V [facility] Lead Channel Setting Pacing Capture Mode Adaptive [facility] Zone Setting Type Category VF [facility] Zone Setting Type Category VT [facility] Zone Setting Type Category VT [facility] Zone Setting Type Category VT [facility] Zone Setting Detection Interval 360 ms [facility] Zone Setting Type Category ATRIAL_FIBRILLATI ON [facility] Zone Setting Type Category AT/AF [facility] Lead Channel Impedance Value 779 ohm [facility] Lead Channel Impedance Value 342 ohm [facility] Lead Channel Sensing Intrinsic Amplitude 19 mV [facility] Lead Channel Sensing Intrinsic Amplitude 19 mV [facility] Lead Channel Pacing Threshold Amplitude 0.875 V [facility] Lead Channel Pacing Threshold Pulse Width 0.4 ms [facility] Battery Date Time of Measurements [id number] [facility] Battery LADDER OPERATOR Trigger 2.625 [facility] Battery Remaining Longevity 89 mo [facility] Battery Voltage 3.00 V [facility] Cholo Statistic Date Time Start [id number] [facility] Cholo Statistic Date Time End [id number] [facility] Cholo Statistic RV Percent [...] SYSTEM Episode Statistic Recent Date Time Start [id number] [facility] Episode Statistic Recent Date [...] SYSTEM Episode Statistic Total Date Time Start [id number] [facility] Episode Statistic Total Date Time End [id number] [facility] Episode Statistic Total Date Time Start [id number] [facility] Episode Statistic Total Date Time End [id number] [facility] Episode Statistic Total Date Time Start [id number] [facility] Episode Statistic Total Date Time End [id number] [facility] Anatomical Region Laterality Modality Other 09/21/2023 10:5 2 PM SOCIAL SCIENTIST Narrative 09/25/2023 4:10 PM SOCIAL SCIENTIST PURPOSE OF VISIT: ??Routine remote transmission. PRESENTING EGM: ??AIRCRAFT CABIN CLEANER at 60 bpm with a PVC. VENTRICULAR [...] M.S.N. LAB BLOOD ADD-ON Performing Organization Address City/[facility]/ZIP Co de Phone Number [facility] [address] [place], [place] [phone] [place] [address] 200 [place] [address] * Potassium (05/02/2023 9:28 AM CDT) Potassium, S 4.7 3.6 - 5.2 mmol/L 05/02/2023 10:49 AM CDT DTL Blood (Blood, Venous) 05/02/2023 9:28 AM CDT 05/02/2023 10:09 AM CDT Devi Stafford APRN, C.N.P., M.S.N. LAB BLOOD ADD-ON Performing Organization Address City/[facility]/ZIP Co de Phone Number [facility] [address] [place] [address], [facility] [address] [place] [address] * (ABNORMAL) Creatinine with Estimated GFR (05/02/2023 9:28 AM CDT) Creatinine 2.09(H) 0.74 - 1.35 mg/dL 05/02/2023 10:49 AM CDT DTL Estimated GFR (eGFR) 31(L) >=60 mL/min/BSA 05/02/2023 10:49 AM CDT DTL Comment: Estimated GFR calculated using the 2020 CKD_EPI creatinine equation. Blood (Blood, Venous) 05/02/2023 9:28 AM CDT 05/02/2023 10:09 AM CDT Devi Stafford APRN, C.N.P., M.S.N. LAB BLOOD ADD-ON [facility] [address] [place] [address], [place] DTL [facility] [address] [place] [address] from Last 3 Months or Most Recently Relevant to Health Maintenance Advance Directives For more information, please contact: [phone] Documents on File Type Date Recorded Patient Forensic Pathologist Expl anation Advance Directives 2002 12:00 AM [...] Answer Comments Full Code: Discussed Care Teams Teller Coordinator Relationship Specialty Start Date End Date Elsewhere, Pcp PCP - General Internal Medicine 09/13/22
--- OUTSIDE RECORDS SUMMARY | 2023-12-13 06:55 | XMS_ITS ---
Author Name Unknown Organization [facility] Address [address] [place] [address] Care Team Providers Care Ship'S Officer Name Role Phone Unavailable Unavailable Unavailable Surgery Details Not on file Complications Check Surgery Details section. Procedure Estimated Blood Loss Check Surgery Details section. Procedure Findings Check Surgery Details section. Procedure Specimens Taken Check Surgery Details section.
--- OUTSIDE RECORDS SUMMARY | 2023-12-13 06:55 | XMS_ITS | Encounter Summary ---
Author Name Unknown Organization [facility] Address [address] [place] [address] Care Team Providers Care Lead Caster Helper Name Role Phone Elsewhere, Pcp Primary Care Provider Unavailabl e Reason for Referral * Outpatient (Routine) - Closed Specialty Diagnoses / Procedures Referred By Jessica patel Referred To Contact Diagnoses Malignant Neoplasm Of Thyroid Papillary (HCC) Procedures US Head Neck Soft Tissue Jemal Murrell M.B.B.S., M.D. [address] [place] [phone] [facility] Referral ID Status Reason Start Date Expiration Date Visits Re quested Visits Authorized [id number] Closed 02/01/2023 02/01/2024 1 1 Reason for Visit * Outpatient (Routine) - Closed Specialty Diagnoses / Procedures Referred By Jessica patel Referred To Contact Diagnoses Malignant Neoplasm Of Thyroid Papillary (HCC) Procedures US Head Neck Soft Tissue Jemal Murrell M.B.B.S., M.D. [address] [place] [phone] [facility] Referral ID Status Reason Start Date Expiration Date Visits Re quested Visits Authorized [id number] Closed 02/01/2023 02/01/2024 1 1 Encounter Details Date Type Department Care Team (Latest Contact Info) Description 12/06/2023 8:00 AM CDT - 12/06/2023 8:58 AM CDT Hospital Encounter Department of Radiology, [facility], in [place], [place] [address] [place] [address] Jemal Murrell M.B.B.S., M.D. [address] [place] [address] Malignant Neoplasm Of Thyroid Papillary (HCC) Discharge Disposition: Home or Self Care Social History Tobacco Use Types Packs/Day Years Used Date Smoking Tobacco: Former Cigarettes 0 01/12/1955 - 01/16/1985 Smokeless Tobacco: Never Alcohol Use Standard Drinks/Week Comments Yes 10 (1 standard drink = 0.6 oz pu re alcohol) occassional [facility] Utilities Answer Date Recorded In the past 12 months has e [employer], gas, oil, or water [employer] threatened to shut off services in your [...] week 08/07/2022 How often do you attend [facility] or mosque services? 1 to 4 times per year 08/07/2022 Do you belong to any clubs o r organizations such as orthodox groups, unions, fraternal or athletic groups, or [...] Recorded PHQ-2 Score 5 01/25/2019 [facility] Questionnaire Answer [...] your living situation today? I have a [facility] place to live 12/01/2023 Education Answer [...] 2 tablets by mouth daily with breakfast. diphenhydrAMINE-acetam inophen (TYLENOL PM) 25-500 mg per tablet Take 1 tablet by mouth at bedtime as needed. 12/16/2016 furosemide (LASIX) 20 mg tablet Take 1 [...] 1 tablet by mouth daily. Centrum (per product engineering manager) 10/09/2017 omeprazole (PriLOSEC) [address] capsuleIndications:Gas troesophageal Reflux Disease TAKE ONE CAPSULE BY MOUTH ONE TIME DAILY FOR ACID REFLUX 100 capsule 3 05/21/2018 vitamin B complex-folic acid (B Complex 1, with folic acid,) 0.4 mg tablet Take 1 tablet by mouth daily. 12/16/2016 warfarin (COUMADIN) 1 mg tablet Take 4-5 tablets by mouth as directed. 4 tabs on Monday/Monday/ ay 3 tabs all other days 10/09/2017 documented as of this encounter Plan of Treatment Upcoming Encounters Date Type Department Care Team (Late st Contact Info) Description 12/14/2023 3:00 PM CDT Virtual Visit Division of Endocrinology in [place], [place] [address] [place] [phone] Zara Garvey APRN, C.N.P., D.N.P. [address] [place] [address] documented as of this encounter Procedures Procedure Name Priority Date/Time Associated Diagnosis Comments US HEAD NECK SOFT TISSUE RAD - Routine (most inpatients and all outpatients) 12/06/2023 8:51 AM CDT Malignant Neoplasm Of Thyroid Papillary (HCC) documented in this encounter Results * US Head Neck Soft Tissue (12/06/2023 [...] IMPRESSION: No recurrent or metastatic disease. Jemal Garcia M.D. I MG US PROCEDURES documented in this encounter Visit Diagnoses Diagnosis Malignant Neoplasm Of Thyroid Papillary (HCC) documented in this encounter Additional Health Concerns Assessment Noted Time PHQ-9 Depression Total Score: 5 03/06/20 18 6:00 PM CDT documented as of this encounter Care Teams Lead Caster Helper Relationship Specialty Start Date End Date Elsewhere, Pcp PCP - General Internal Medicine 09/13/22 documented as of this encounter
--- OUTSIDE RECORDS SUMMARY | 2023-12-13 06:55 | XMS_ITS | Encounter Summary ---
Author Name Unknown Organization [facility] Address [address] [place] [address] Care Team Providers Care Electrical Cad Technician Name Role Phone Elsewhere, Pcp Primary Care Provider Unavailabl e Reason for Referral * Outpatient (Routine) - Closed Specialty Diagnoses / Procedures Referred By Jessica patel Referred To Contact Diagnoses Malignant Neoplasm Of Thyroid Papillary (HCC) Procedures BMD Bone Density Spine Hips Jemal Murrell M.B.B.S., M.D. [address] [place] [phone] [facility] Referral ID Status Reason Start Date Expiration Date Visits Re quested Visits Authorized [id number] Closed 02/01/2023 02/01/2024 1 1 Reason for Visit * Outpatient (Routine) - Closed Specialty Diagnoses / Procedures Referred By Jessica patel Referred To Contact Diagnoses Malignant Neoplasm Of Thyroid Papillary (HCC) Procedures BMD Bone Density Spine Hips Jemal Murrell M.B.B.S., M.D. [address] [place] [phone] [facility] Referral ID Status Reason Start Date Expiration Date Visits Re quested Visits Authorized [id number] Closed 02/01/2023 02/01/2024 1 1 Encounter Details Date Type Department Care Team (Latest Contact Info) Description 12/06/2023 8:59 AM CDT - 12/06/2023 9:32 AM CDT Hospital Encounter Department of Radiology, [facility], in [place], [place] [address] [place] [address] Jemal Murrell M.B.B.S., M.D. [address] [place] [address] Malignant Neoplasm Of Thyroid Papillary (HCC) Discharge Disposition: Home or Self Care Social History Tobacco Use Types Packs/Day Years Used Date Smoking Tobacco: Former Cigarettes 0 01/12/1955 - 01/16/1985 Smokeless Tobacco: Never Alcohol Use Standard Drinks/Week Comments Yes 10 (1 standard drink = 0.6 oz pu re alcohol) occassional [facility] Utilities Answer Date Recorded In the past 12 months has e [employer], gas, oil, or water [employer] threatened to shut off services in your [...] week 08/07/2022 How often do you attend [facility] or rastafarian services? 1 to 4 times per year 08/07/2022 Do you belong to any clubs o r organizations such as gnosticism groups, unions, fraternal or athletic groups, or [...] Answer Date Recorded PHQ-2 Score 5 01/25/2019 [facility] - Occupational Stress Questionnaire Answer [...] living situation today? I have a [facility] place to live 12/01/2023 Education Answer Date [...] 1 tablet by mouth daily. Centrum (per etcher electrolytic) 10/09/2017 omeprazole (PriLOSEC) [address] capsuleIndications:Gas [...] CDT Virtual Visit Division of Endocrinology in [place], [place] [address] [place] [phone] Zara Garvey APRN, C.N.P., D.N.P. [address] [place] [address] documented as of this encounter Procedures Procedure Name Priority Date/Time Associated Diagnosis Comments BMD BONE DENSITY SPINE HIPS RAD - Routine (most inpatients and all outpatients) 12/06/2023 9:46 AM CDT Malignant Neoplasm Of Thyroid Papillary (HCC) documented in this encounter Results * BMD Bone Density Spine Hips (12/06/2023 9:46 AM CDT) Anatomical Region Laterality Modality Hip, Lumbar Spine, Nuclear M edicine RST LOS, Musculoskeletal ARZ LOS, Muskuloskeletal FLA LOS N/A Radio graphic Imaging Impressions 12/06/2023 11:38 AM CDT Low bone density (Osteopenia) Narrative 12/06/2023 11:38 AM CDT EXAM: ??BMD BONE DENSITY SPINE HIPS Bone Mineral Density (BMD) analysis performed on [employer]. with serial number [id number]. ? FINDINGS: Left Hip: Femur Neck: BMD [...] including images and graphs, is available in [employer]. In the absence of other causes of [...] Bone Mineral Density (BMD) analysis performed on [employer] with serialnumber [id number]. FINDINGS: Left Hip: Femur Neck: BMD = [...] Jemal Garcia, MDavisD. I MG DXA PROCEDURES documented in this encounter Visit Diagnoses Diagnosis Malignant Neoplasm Of Thyroid Papillary (HCC) documented in this encounter Additional Health Concerns Assessment Noted Time PHQ-9 Depression Total Score: 5 03/06/20 18 6:00 PM CDT documented as of this encounter Care Teams Electrical Cad Technician Relationship Specialty Start Date End Date Elsewhere, Pcp PCP - General Internal Medicine 09/13/22 documented as of this encounter
--- OUTSIDE RECORDS SUMMARY | 2023-12-13 06:55 | XMS_ITS | Encounter Summary ---
Author Name Unknown Organization [facility] Address [address] [place] [address] Care Team Providers Care Dining Room Helper Name Role Phone Elsewhere, Pcp Primary Care Provider Unavailabl e Reason for Referral * MRI/CAT/PET Scan (Routine) - Closed Specialty Diagnoses / Procedures Referred By Jessica patel Referred To Contact Radiology Diagnoses Malignant Neoplasm Of Thyroid Papillary (HCC) Procedures CT Chest without IV Contrast Jemal Murrell M.B.B.S., M.D. 200 [place] [address] [facility] Referral ID Status Reason Start Date Expiration Date Visits Re quested Visits Authorized [id number] Closed 02/01/2023 02/01/2024 1 1 Reason for Visit * MRI/CAT/PET Scan (Routine) - Closed Specialty Diagnoses / Procedures Referred By Jessica patel Referred To Contact Radiology Diagnoses Malignant Neoplasm Of Thyroid Papillary (HCC) Procedures CT Chest without IV Contrast Jemal Murrell M.B.B.S., M.D. [address] [place] [phone] [facility] Referral ID Status Reason Start Date Expiration Date Visits Re quested Visits Authorized [id number] Closed 02/01/2023 02/01/2024 1 1 Encounter Details Date Type Department Care Team (Latest Contact Info) Description 12/06/2023 9:33 AM CDT - 12/06/2023 11:59 PM CDT Hospital Encounter Department of Radiology, [facility], in [place], [place] [address] [place] [address] Jemal Murrell M.B.B.S., M.D. [address] [place] [address] Malignant Neoplasm Of Thyroid Papillary (HCC) Discharge Disposition: Home or Self Care Social History Tobacco Use Types Packs/Day Years Used Date Smoking Tobacco: Former Cigarettes 0 01/12/1955 - 01/16/1985 Smokeless Tobacco: Never Alcohol Use Standard Drinks/Week Comments Yes 10 (1 standard drink = 0.6 oz pu re alcohol) occassional [facility] Utilities Answer Date Recorded In the past 12 months has [facility] [employer], gas, oil, or water [employer] threatened to shut off services in your [...] you attend [facility] or restoration services? 1 to 4 times per year 08/07/2022 Do you belong to any clubs o r organizations such as holiness groups, unions, fraternal or athletic groups, or [...] Answer Date Recorded PHQ-2 Score 5 01/25/2019 [facility] - Occupational Stress Questionnaire Answer Date Recorded [...] your living situation today? [facility] 12/01/2023 Education Answer Date [...] 1 tablet by mouth daily. Centrum (per brokerage clerk) 10/09/2017 omeprazole (PriLOSEC) [address] capsuleIndications:Gas [...] CDT Virtual Visit Division of Endocrinology in [place], [place] [address] [place] [address] Zara Garvey, ROSAURA, C.N.P., D.N.P. [address] [place] [address] documented as of this encounter Procedures Procedure [...] a 9 mm lower left paratracheal node (3/203). No new lymphadenopathy. Postoperative changes of aortic [...] Jemal Garcia, M.D. I MG CT PROCEDURES documented in this encounter Visit Diagnoses Diagnosis Malignant Neoplasm Of Thyroid Papillary (HCC) documented in this encounter Additional Health Concerns Assessment Noted Time PHQ-9 Depression Total Score: 5 03/06/20 18 6:00 PM CDT documented as of this encounter Care Teams Dining Room Helper Relationship Specialty Start Date End Date Elsewhere, Pcp PCP - General Internal Medicine 09/13/22 documented as of this encounter
--- OUTSIDE RECORDS SUMMARY | 2023-12-13 06:56 | XMS_ITS | Encounter Summary ---
Author Name Unknown Organization [facility] Address [address] [place] [address] Care Team Providers Care Film Editor Supervisor Name Role Phone Elsewhere, Pcp Primary Care Provider Unavailabl e Encounter Details Date Type Department Care Team (Latest Contact Info) Description 09/22/2023 4:00 AM SNUFF GRINDER - 09/22/2023 11:59 PM SNUFF GRINDER Hospital Encounter Department of Cardiovascular Diseases in [place], [place] [address] [place] [address] Ernesto Xiao M.B., B.Ch., B.A.O. [address] [place] [address] Encounter For Checking And Testing Of Cardiac [...] How often do you attend chur or oriental orthodox services? 1 to 4 times per year 08/07/2022 Do you belong to any clubs o r organizations such as religious groups, unions, fraternal or athletic groups, or [...] Answer Date Recorded PHQ-2 Score 5 01/25/2019 [facility] [place] of Occupat ional Health - Occupational Stress [...] day with meals. 180 tablet 3 10/10/2022 diphenhydrAMINE-acetam inophen (TYLENOL PM) 25-500 mg per [...] tablet by mouth daily. Centrum (per senior environmental engineer) 10/09/2017 omeprazole (PriLOSEC) [address] capsuleIndications:Gas [...] CDT Virtual Visit Division of Endocrinology in [place], [place] [address] [place] [address] Zara Garvey APRN, C.N.P., D.N.P. [address] [place] [address] documented as of this encounter Procedures Procedure Name Priority Date/Time Associated Diagnosis Comments PACER REMOTE FOLLOW UP Routine 09/22/2023 3:09 PM SNUFF GRINDER Encounter For Checking And Testing Of Cardiac Pacemaker Pulse Generator Battery documented in this encounter Results * PACER REMOTE FOLLOW UP (09/22/2023 3:09 PM SNUFF GRINDER) Date Time Interrogation Session [id number] [facility] Implantable Pulse Generator Quality Control Specialist Medtronic [facility] Implantable Pulse Generator Model [id number] Preeti XT SR MRI [facility] Implantable Pulse Generator Serial Number [id number] [facility] Type Interrogation Session Remote [facility] Clinic Name [facility] Implantable Pulse Generator Type Pacemaker [facility] Implantable Pulse Generator Implant Date [id number] [facility] Implantable Lead Quality Control Specialist Medtronic [facility] Implantable Lead Model [id number] Attain Ability MRI SureScan [facility] Implantable Lead Serial Number [id number] [facility] Implantable [...] Time of Measurements [facility] Battery RABBIT BREEDER Trigger 2.625 [facility] Battery Remaining [...] SYSTEM Episode Statistic Recent Date Time End [id number] [facility] Episode Statistic Total Count 0 [facility] Episode Statistic Type Category Patient Activated [facility] Episode Statistic Total Count 4 [facility] Episode Statistic Type Category VT [facility] Episode Statistic Total Count 0 [facility] Episode Statistic Type Category VT [facility] Episode Statistic Total Date Time Start [id number] [facility] Episode Statistic Total Date Time End [id number] [facility] Episode Statistic Total Date Time Start [id number] [facility] Episode Statistic Total Date Time End [id number] [facility] Episode Statistic Total Date Time Start [id number] [facility] Episode Statistic Total Date Time End [id number] [facility] Anatomical Region Laterality Modality Other 09/21/2023 10:5 2 PM SNUFF GRINDER Narrative 09/25/2023 4:10 PM SNUFF GRINDER PURPOSE OF VISIT: ??Routine remote transmission. PRESENTING EGM: ??CLAY PRESS OPERATOR at 60 bpm with a PVC. [...] B.Ch., B.A.O. CV IMP LANTABLE CARDIAC DEVICE documented in this encounter Visit Diagnoses Diagnosis Encounter For Checking And Testing Of Cardiac Pacemaker Pulse Generator Battery documented in this encounter Additional Health Concerns Assessment Noted Time PHQ-9 Depression Total Score: 5 03/06/20 18 6:00 PM CDT documented as of this encounter Care Teams Film Editor Supervisor Relationship Specialty Start Date End Date Elsewhere, Pcp PCP - General Internal Medicine 09/13/22 documented as of this encounter
--- OUTSIDE RECORDS SUMMARY | 2023-12-13 06:56 | XMS_ITS | Encounter Summary ---
Author Name Unknown Organization [facility] Address [address] [place] [address] Care Team Providers Care Diesel Engine Specialist Name Role Phone Elsewhere, Pcp Primary Care Provider Unavailabl e Reason for Visit * Reason Onset Date Comments Pre-visit Intake 12/04/2023 Encounter Details Date Type Department Care Team (Latest Contact Info) Description 12/04/2023 10:30 AM CDT Clinical Communication Virtual Review in [place], [place] 200 [place] [address] Pre-visit Intake Social History Tobacco Use Types Packs/Day Years Used Date Smoking Tobacco: Former Cigarettes 0 01/12/1955 - 01/16/1985 Smokeless Tobacco: Never Tobacco Cessation:Counseling Given: Not Answered Alcohol Use Standard Drinks/Week Comments Yes 10 (1 standard drink = 0.6 oz pu re alcohol) occassional [facility] Utilities Answer Date Recorded In the past 12 months has [facility] [employer], gas, oil, or water [employer] threatened to shut off services in your [...] How often do you attend chur or roman catholic services? 1 to 4 times per year [...] Date Recorded PHQ-2 Score 5 01/25/2019 [facility] - Occupational Stress Questionnaire Answer Date [...] your living situation today? I have a [facility] place to live 12/01/2023 Education Answer [...] CDT Virtual Visit Division of Endocrinology in [place], [place] [address] [place] [address] Zara Garvey, ROSAURA, C.N.P., D.N.P. [address] [place] [address] documented as of this encounter Visit Diagnoses Not on filedocumented in this encounter Additional Health Concerns Assessment Noted Time PHQ-9 Depression Total Score: 5 03/06/20 18 6:00 PM CDT documented as of this encounter Care Teams Diesel Engine Specialist Relationship Specialty Start Date End Date Elsewhere, Pcp PCP - General Internal Medicine 09/13/22 documented as of this encounter
--- OUTSIDE RECORDS SUMMARY | 2023-12-13 06:56 | XMS_ITS | Encounter Summary ---
Author Name Unknown Organization [facility] Address [address] [place] [address] Care Team Providers Care Heel Stiffener Name Role Phone Elsewhere, Pcp Primary Care Provider Unavailabl e Reason for Visit * Appointment Request (Routine) - Closed Specialty Diagnoses / Procedures Referred By Jessica patel Referred To Contact Nephrology and Hypertension Referral ID Status Reason Start Date Expiration Date Visits Re quested Visits Authorized [id number] Closed 08/25/2023 08/24/2024 1 1 Encounter Details Date Type Department Care Team (Latest Contact Info) Description 09/25/2023 3:00 PM UPPER DOUBLER External Outreach Division of Nephrology and Hypertension in [place], [place] [address] [place] [address] Eddie Sheffield Jr., D.O. [address] [place] [address] Hypertension And Chronic Kidney Disease Stage 4 [...] often do you attend chur ch or bahai services? 1 to 4 times per year [...] Date Recorded PHQ-2 Score 5 01/25/2019 [facility] [place] of Occupat ional Health - Occupational Stress [...] place to sleep or slept in a correction (including now)? No 08/07/2022 Nutrition Answer Date [...] Comments Blood Pressure 138/86 09/25/2023 3:03 PM UPPER DOUBLER Pulse 73 09/25/2023 3:03 PM UPPER DOUBLER Temperature - - Respiratory Rate - - Oxygen Saturation - - Inhaled Oxygen Concentration - - Weight 72 kg (158 lb 12.8 oz) 09/25/2023 3:03 PM UPPER DOUBLER Height 170.1 cm (5' 6.97) 09/25/2023 3:03 PM CS T Body Mass Index 24.89 09/25/2023 3:03 PM UPPER DOUBLER documented in this encounter Progress Notes * Eddie Sheffield Jr., D.O. - 09/25/2023 3:00 PM CST Referring Provider: ELSEWHERE, PCP SUBJECTIVE REASON FOR VISIT [facility] Follow-up regards CKD [...] 1 tablet by mouth daily. Centrum (per adzing and boring machine operator) , Disp: , Rfl: omeprazole (PriLOSEC) 20 [...] 25 minutes Eddie Sheffield Jr., D.O. R DOUBLER documented in this encounter Plan of Treatment Upcoming Encounters Date Type Department Care Team (Late st Contact Info) Description 12/14/2023 3:00 PM CDT Virtual Visit Division of Endocrinology in [place], [place] [address] [place] [phone] Zara Garvey APRN, C.N.P., D.N.P. 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
== END 2023-12-11 13:04 | disposition home or self-care (01) ==
LOC: NFLDREF 12-13 06:53
PROVIDERS: PCP Family Medicine; Referring Provider Family Medicine; Visit Provider Family Medicine
DX: N39.0 Urinary tract infection, site not specified (principal)
CPT/HCPCS: 87086

== ENCOUNTER 2024-02-07 08:44 | Outpatient (CLI) | payer MEDICARE, SELFPAY ==
--- OUTSIDE RECORDS SUMMARY | 2024-02-09 10:08 | XMS_ITS | Encounter Summary ---
Author Organization [facility] Address [address] [place] [address] Care Team Providers Care Scoreboard Operator Name Role Phone Elsewhere, Pcp Primary Care Provider Unavailabl e Reason for Referral * MRI/CAT/PET Scan (Routine) - Authorized Specialty Diagnoses / Procedures Referred By Contac t Referred To Contact Radiology Diagnoses Malignant Neoplasm Of Thyroid Papillary (HCC) Procedures CT Chest without IV Contrast Zara Garvey APRN, C.N.P., D.N.P. [address] [place] [phone] [facility] Referral ID Status Reason Start Date Expiration Date V isits Requested Visits Authorized [id number] Authorized 12/14/2023 12/13/2024 1 1 * Outpatient (Routine) - Authorized Specialty Diagnoses / Procedures Referred By Contac t Referred To Contact Diagnoses Malignant Neoplasm Of Thyroid Papillary (HCC) Procedures US Head Neck Soft Tissue Zara Garvey APRN, C.N.P., D.N.P. [address] [place] [phone] [facility] Referral ID Status Reason Start Date Expiration Date V isits Requested Visits Authorized [id number] Authorized 12/14/2023 12/13/2024 1 1 * Outpatient (Routine) - Authorized Specialty Diagnoses / Procedures Referred By Contac t Referred To Contact Endocrinology Diagnoses Malignant Neoplasm Of Thyroid Papillary (HCC) Zara Garvey APRN C.N.PDavis, D.N.P. [address] [place] [phone] Ciara Hebert M.D. [address] [place] [phone] Referral ID Status Reason Start Date Expiration Date V isits Requested Visits Authorized [id number] Authorized 12/14/2023 06/14/2025 1 1 Scheduling Instructions Please schedule with any of the Thyroid Consultants (MD only) for 6 months from December 2023 Reason for Visit * Outpatient (Routine) - Closed Specialty Diagnoses / Procedures Referred By Contac t Referred To Contact Endocrinology Diagnoses Malignant Neoplasm Of Thyroid Papillary (HCC) Jemal Murrell M.B.B.S., M.D. [address] [place] [phone] [facility] Referral ID Status Reason Start Date Expiration Date Visits Re quested Visits Authorized [id number] Closed 02/01/2023 01/31/2026 1 1 Encounter Details Date Type Department Care Team (Late st Contact Info) Description 12/14/2023 3:00 PM CDT Virtual Visit Division of Endocrinology in [place], [place] [address] [place] [phone] Zara Garvey APRN C.N.PDavis, D.N.P. [address] [place] [phone] Malignant Neoplasm Of Thyroid Papillary (HCC) Social History Tobacco Use Types Packs/Day Years Used Date Smoking Tobacco: Former Cigarettes 0 01/12/1955 - 01/16/1985 Smokeless Tobacco: Never Alcohol Use Standard Drinks/Week Comments Yes 10 (1 standard drink = 0.6 oz pu re alcohol) occassional [facility] Utilities Answer Date Recorded In the [...] week 08/07/2022 How often do you attend [facility] or ep[facility] services? 1 to 4 times per year [...] your living situation today? I have a [facility] place to live 12/01/2023 Education Answer [...] as of this encounter Progress Notes * Zara Garvey APRN, C.NTripp., D.N.P. - 12/14/2023 3:00 PM CDT CHIEF COMPLAINT / REASON FOR VISIT Jose Kearney is a 82 y.o. male presenting virtually today for follow up of papillary thyroid carcinoma Consult conducted via real-time audio/video technology by Zara Garvey APRN, Jass.Devin.Marilee., D.N.P. in [facility] to the patient in Patient's Home Phone visit SUBJECTIVE HISTORY OF PRESENT ILLNESS Patient is a delightful 82-year-old male who presents to clinic today for follow up of papillary thyroid carcinoma. His Steffi is also present via phone visit. The thyroid history for Jose Kearney is as follows: Mr. Kearney has a history of Graves' disease, which was diagnosed in 2011. He received radioactiveiodine at that time and has subsequently received levothyroxine replacement therapy. In July 2016, he noted palpable neck masses were identified. In October 2016 at an external facility, he underwent a formal ultrasound and proceeded to have a fine-needle aspiration of the left supraclavicular lymph nodes. This confirmed papillary thyroid cancer, and these slides were reviewed by our pathologist here at [place] who concurred with this diagnosis. His treatment was somewhat delayed due to his cardiac issues, but in March 2017 between hospitalizations he had a further ultrasound of the soft tissue head and neck here at [place]. This revealed multiple enlarged lymph nodes in [...] the optimal approachfor his metastatic thyroid cancer, a period of observation was elected. In August 2017, he did have a CT neck completed. This again confirmed the thyroid nodules and enlarged lymph nodes, but there was no evidence of tracheal invasion or a definite carotid encasement. The scan, however, was without contrast due to his renal function, and therefore the quality was somewhat reduced. He had a vocalcord check also completed in August 2017, and [...] not identified but lymphatic invasion was present. Extrathyroidal extension was present to the strapmuscles. Overall the staging is [id number] and this is high risk disease. Of [...] 09/06/2018. His pre treatment scan revealed focal [id number] along the expected location of the thyroglossal [...] monitoring by his primary care provider. During follow up in 08/2022, his Tg mega from 1.1 [...] and on Sundays only 1/2 a pill. In view of uptrending Tg, we elected to bring him back in [address] check to assess the structural burden. In January 2023, Mr. Garcia was again seen in follow up. CT chest demonstrated multiple bilateral solidnoncalcified new pulmonary nodules that were worrisome for metastases. Additional clustered nodularities were felt to be of infectious/inflammatory etiology. Neck US did not show any evidence of disease. TSH 0.3, free T4 2.2, Tg tumor marker 2.9 with negative antibodies. With findings on CT and uptick in Tg tumor marker, it was felt that he likely has metastatic disease to the lungs. The structural burden was felt to be quite minimal with the largest foci measuring around 6 mm in size. Patient doing well clinically without pulmonary symptoms. He was recommended to repeat imaging in 9 months to assess the rate of growth of these nodules. If the nodules in the lungs remained stable in size, it was felt that these could be monitored through serial imaging. However, if pulmonary nodules were growing rapidly, the option of repeating WBS with consideration of retreatment with YUSUF was discussed. Today, Jose Kearney, confirms taking 175 mcg of levothyroxine daily except for Sundays where he was to take 1/2 a tablet. He denies any missed doses of this. He takes his levothyroxine around 4:30-5:00 AM, on an empty stomach and waits at least 1 hour before having breakfast or taking other medications. Takes a daily Calcitriol but this is at least 4 hours after his levothyroxine. He iscompletely without pulmonary symptoms, denying shortness of breath, cough, or hemoptysis. In fact, he and his live on the 3rd floor of an apartment complex and he often takes the stairs. No local neck symptoms, he denies enlarging lumps/bumps, dysphagia, or dysphonia. REVIEW OF SYSTEMS REVIEW OF SYSTEMS OBJECTIVE There were no vitals taken for this visit. PHYSICAL EXAM GENERAL: Alert and oriented to person, place, and time. Does not sound to be in any acute distress. RESPIRATORY: No increased work of breathing. PSYCHIATRIC: Appropriate affect. Cooperative behavior. DIAGNOSTICS Labs 12/06/23: TSH 3.6, free T4 1.9, Tg tumor marker 4.4 BMD Bone Density Spine Hips Result Date: 12/06/2023 Narrative: EXAM: BMD BONE DENSITY SPINE HIPS Bone Mineral Density (BMD) analysis performed on [email or web address] with serial number [id number]. FINDINGS: Left Hip: Femur Neck: BMD = [...] including images and graphs, is available in [employer]. In the absence of other causes of low BMD or demonstrated skeletal fragility, osteoporosis may be diagnosed in post-menopausal women and men at or above age 50 when the T-score is at or below -2.5 as defined by the WHO. Low bone density is present at T- scores between -1 and -2.5. The diagnosis in [...] Major Osteoporotic Fracture: 8.4 % Hip Fracture: 3.5% Degenerative changes are present which may spuriously elevate the spine BMD measurement. Impression: Low bone density (Osteopenia) CT Chest without IV Contrast Result Date: 12/06/2023 Narrative: EXAM: CT CHEST WITHOUT IV CONTRAST COMPARISON: [...] Stable fat density lesion along the hepatic dome.Calcified hepatic granuloma. Cholecystectomy. Negative adrenal glands. 3D maximum intensity projection (MIP) images were created on a dependent workstation as ordered by the treating provider and reviewed by the radiologist to increase sensitivity for detection of pulmonary nodules. Impression: 1. Numerous tiny pulmonary nodules measuring up to 6 mm are stable. 2. 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 US Head Neck Soft Tissue Result Date: 12/06/2023 Narrative: EXAM: US HEAD NECK SOFT TISSUE COMPARISON: 02/01/2023 FINDINGS: Thyroidectomy. Tiny avascular nodule in the right thyroid bed has decreased in size since 02/01/2023 and is likely a normal lymph node. Slender avascular lymph node in the lower left thyroid bed. No suspicious nodules in the thyroid bed. No cervical adenopathy. Impression: No recurrent or metastatic disease. ASSESSMENT / PLAN #1. Metastatic papillary thyroid cancer- [id number]- possible mets to lung? #2. Status post total thyroidectomy with central compartment lymph node dissection. #3. 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 #4. Status post radioactive iodine treatment following surgery with 104.07 mCi I reviewed with Mr. Kearney results of most recent thyroid labs and neck US imaging/report. By labvalues, TSH is above goal at 3.6. We were not able to identify any causes of this. He is taking hislevothyroxine as prescribed and we were not able to identify any issues with absorption. He is surehe is not missing any doses. His weight has been stable over the past 6 months. Recommend TSH goal of 0.1-0.5 given age > 60, cardiac history, and osteopenia. Discussed increasing levothyroxine to200 mcg daily, plan to recheck TSH by mail in kit in 6-8 weeks. Tg tumor marker has also trended upto 4.4 with negative antibodies, explained that uptick could be attributable to TSH elevation. Willrecheck a Tg tumor marker with TSH recheck in 6-8 weeks to see if this trends back down with TSH atgoal. By neck US, no evidence of disease. By chest CT, multiple tiny pulmonary nodules measuring upto 6 mm remain stable in size. He is completely asymptomatic in way of pulmonary nodules. We did discuss briefly that if pulmonary nodules are small and are not causing him any symptoms, it would be r easonable to continue to monitor these by chest CT every 6 months. If they do demonstrate growth, next step likely would be to perform WBS to see if they are iodine avid and would be amenable to a dose of I-131. He is comfortable with this. Will plan for him to be seen by one of our Thyroid Consultants #5. Osteopenia by most recent BMD scan On BMD scan, Radiologist identified osteopenia to lumbar spine and femurs. Patient without history of fractures. He is taking 400 mg of supplemental calcium daily. Reviewed recommended daily intake of calcium / vitamin D and ways to optimize this through diet. Did also encourage him to share these results with his PCP as my specialty really only is the thyroid. Recommendations: 1) Increase levothyroxine to 200 mcg daily, recheck TSH/Tg tumor marker in 8 weeks by mail-in kit with results/recommendations relayed via patient online services 2) Goal TSH 0.1 to 0.5 mlU/L given age > 60, cardiac history, and osteopenia 3) Follow-up in 6 months with one of our Thyroid Consultants with labs, neck US, and chest CT, sooner with symptoms/concerns documented in this encounter Plan of Treatment Upcoming Encounters Date Type Department Care Team (Late st Contact Info) Description 03/27/2024 9:10 AM CDT Appointment Department of Laboratory Medicine and Pathology, [facility], in [place], [place] [address] [place] [phone] Zara Garvey APRN, C.N.P., D.N.P. [address] [place] [phone] Scheduled Orders Name Type Priority Associated Diagnoses Order Schedule Thyroglobulin, Tumor Marker Reflex to LC-MS/MS or Immunoassay Lab Routine Malignant Neoplasm Of Thyroid Papillary (HCC) Expected: 06/15/2024, Expires: 03/15/2025 US Head Neck Soft Tissue Imaging RAD - Routine (most inpatients and all outpatients) Malignant Neoplasm Of Thyroid Papillary (HCC) Expected: 06/15/2024, Expires: 06/06/2025 CT Chest without IV Contrast Imaging RAD - Routine (most inpatients and all outpatients) Malignant Neoplasm Of Thyroid Papillary (HCC) Expected: 06/15/2024, Expires: 03/15/2025 S-TSH (Thyroid-Stimulating Hormone - Sensitive) Lab Routine Malignant Neoplasm Of Thyroid Papillary (HCC) Expected: 06/15/2024, Expires: 03/15/2025 T4 (Thyroxine), Free Lab Routine Malignant Neoplasm Of Thyroid Papillary (HCC) Expected: 06/15/2024, Expires: 03/15/2025 Scheduled Referrals Name Type Priority Associated Diagnoses Order Schedule Endocrinology office visit (clinic) Outpatient Referral Routine Malignant Neoplasm Of Thyroid Papillary (HCC) Expected: 06/15/2024 (Approximate), Expires: 03/15/2025 documented as of this encounter Results * (ABNORMAL) T4 (Thyroxine), Free (02/07/2024 8:40 AM CDT) T4 (Thyroxine), Free, S 3.1(H) 0.9 - 1.7 ng/dL 02/08/2024 12:14 PM CDT DTL Blood (Blood, Venous) 02/07/2024 8:40 AM CDT 02/08/2024 9:06 AM CDT Narrative Resulting Agency Comment Mailed In Specimen Zara aGrvey APRN C.N.P., D.N.P. LAB BLOOD ADD-ON [facility] [address] [place] [address], [facility] [address] [place] [address] * (ABNORMAL) S-TSH (Thyroid-Stimulating Hormone - Sensitive) (02/07/2024 8:40 AM CDT) TSH, Sensitive 0.01(L) 0.3 - 4.2 mIU/L 02/08/2024 12:14 PM CDT DTL Blood (Blood, Venous) 02/07/2024 8:40 AM CDT 02/08/2024 9:06 AM CDT Narrative Resulting Agency Comment Mailed In Specimen Zara Garvey APRN, C.N.P., D.N.P. LAB BLOOD ADD-ON [facility] [address] [place] [address], [place] DTL [facility] [address] [place] [address] * Thyroglobulin, Tumor Marker Reflex to LC-MS/MS or Immunoassay (02/07/2024 8:40 AM CDT) Thyroglobulin Antibody, S <1.8 <1.8 IU/mL 02/08/2024 2:39 PM CDT [facility] Comment: Thyroglobulin Antibody < 1.8 IU/mL. Thyroglobulin performed by Immunoassay to follow. Blood (Blood, Venous) 02/07/2024 8:40 AM CDT 02/08/2024 1:24 PM CDT Narrative Resulting Agency Comment Mailed In Specimen Zara Garvey APRN, C.N.P., D.N.P. LAB BLOOD NON ADD-ON [facility] [address] [place] [address] [facility] [address] [place] [address] documented in this encounter Visit Diagnoses Diagnosis Malignant Neoplasm Of Thyroid Papillary (HCC) documented in this encounter Additional Health Concerns Assessment Noted Time PHQ-9 Depression Total Score: 5 03/06/20 18 6:00 PM CDT documented as of this encounter Care Teams Scoreboard Operator Relationship Specialty Start Date End Date Elsewhere, Pcp PCP - General Internal Medicine 09/13/22 documented as of this encounter
--- OUTSIDE RECORDS SUMMARY | 2024-02-09 10:08 | XMS_ITS | Encounter Summary ---
Author Organization [facility] Address [address] [place] [phone] Care Team Providers Care Mamma Logist Name Role Phone Elsewhere, Pcp Primary Care Provider Unavailabl e Encounter Details Date Type Department Care Team (Late st Contact Info) Description 12/15/2023 9:34 AM CDT - 12/15/2023 11:59 PM CDT Hospital Encounter Department of Laboratory Medicine and Pathology, [facility] in [place], [place] [address] [place] [phone] Zara Garvey, ROSAURA, C.N.P., D.N.P. [address] [place] [phone] Malignant Neoplasm Of Thyroid Papillary (HCC) Discharge Disposition: Home or Self Care Social History Tobacco Use Types Packs/Day Years Used Date Smoking Tobacco: Former Cigarettes 0 01/12/1955 - 01/16/1985 Smokeless Tobacco: Never Alcohol Use Standard Drinks/Week Comments Yes 10 (1 standard drink = 0.6 oz pu re alcohol) occassional [facility] Utilities Answer Date Recorded In [...] any clubs o r organizations such as denominational groups, unions, fraternal or athletic groups, or [...] Answer Date Recorded PHQ-2 Score 5 01/25/2019 [facility] [place] [facility] [facility] [employer] [facility] - Occupational Stress [...] your living situation today? I [facility] a [facility] place to live 12/01/2023 Education Answer Date [...] by mouth daily. 02/10/2020 levothyroxine (SYNTHROID, LEVOTHROID) 200 mcg tablet Take 1 tablet (200 mcg total) by mouth every morning before breakfast. 90 tablet 3 12/14/2023 melatonin 3 mg tablet Take 1 tablet by mouth at bedtime. 05/23/2017 multivitamin tablet Take 1 tablet by mouth daily. Centrum (per radio broadcaster) 10/09/2017 omeprazole (PriLOSEC) [address] capsuleIndications:Gas [...] days 10/09/2017 documented as of this encounter Miscellaneous Notes * Result Encounter Note - Zara Garvey APRN, C.N.P., D.N.P. - 02/08/2024 4:59 PM CDT Hi Mr. Kearney-- Tg tumor marker looks much better with your lower TSH value. It has trended down to baseline valuesfrom 1 year ago and is low positive at 2.8. Shelbi Jaquez * Result Encounter Note - Zara Garvey APRN, C.N.P., D.N.P. - 02/08/2024 12:45 PM CDT Awilda Kearney-- Thanks for having your thyroid levels rechecked. You are now on just a bit too much thyroid hormone. I see your TSH is below goal at 0.01 with an elevated free T4 to 3.1. We are trying to target a TSH somewhere around 0.1-0.5. I believe we had you taking levothyroxine 200 mcg daily. Let's have you continue with levothyroxine 200 mcg daily tablets but have you pick 1 day a week where you will onlytake 1/2 a tablet. Please let me know you received this message. I will arrange for thyroid level recheck in 6-8 weeks. Shelbi Gardiner documented in this encounter Plan of Treatment Upcoming Encounters Date Type Department Care Team (Late st Contact Info) Description 03/27/2024 9:10 AM CDT Appointment Department of Laboratory Medicine and Pathology, [facility] in [place], [place] [address] [place] [phone] Zara Garvey APRN, C.NTato, D.N.P. [address] [place] [phone] documented as of this encounter Procedures Procedure Name Priority Date/Time Associated Diagnosis Comments DE THYROGLOBULIN SERUM Routine 4 8:40 AM CDT THYROGLOBULIN, TM, REFLEX TO LC-MS/MS OR IMMUNOASSAY, S Routine 02/07/2024 8:40 AM CDT Malignant Neoplasm Of Thyroid Papillary (HCC) THYROID-STIMULATING HORMONE-SENSITIVE (S-TSH) Routine 02/07/2024 8:40 AM CDT Malignant Neoplasm Of Thyroid Papillary (HCC) T4 (THYROXINE), FREE, S Routine 02/07/2024 8:40 AM CDT Malignant Neoplasm Of Thyroid Papillary (HCC) documented in this encounter Results * (ABNORMAL) Thyroglobulin, Tumor Marker by Immunoassay (02/07/2024 8:40 AM CDT) Thyroglobulin, Tumor Marker, IA 2.8(H) ng/mL 02/08/2024 4:08 PM CDT [facility] Comment: ----REFERENCE VALUE---- Athyrotic <0.1 Intact Thyroid <=33 Thyroglobulin Interpretation SEE COMMENT 02/08/2024 4:08 PM CDT [facility] Comment: Thyroglobulin (Tg) levels must be interpreted [...] testing methods are immunoenzymatic assays manufactured by [employer] and performed on the [employer] DXI 800. Values obtained from different assay methods or kits may be different and cannot be used interchangeably. The results cannot be interpreted as absolute evidence for the presence or absence of malignant disease. Blood 02/07/2024 8:40 AM CDT 02/08/2024 1:24 PM CDT Narrative Resulting Agency Comment Mailed In Specimen Zara Garvey APRN, C.N.P., D.N.P. LAB BLOOD NON ADD-ON [facility] [address] [place] [address] [facility] [address] [place] [address] * (ABNORMAL) T4 (Thyroxine), Free (02/07/2024 8:40 AM CDT) T4 (Thyroxine), Free, S 3.1(H) 0.9 - 1.7 ng/dL 02/08/2024 12:14 PM CDT DTL Blood (Blood, Venous) 02/07/2024 8:40 AM CDT 02/08/2024 9:06 AM CDT Narrative Resulting Agency Comment Mailed In Specimen Zara Garvey APRN C.N.P., D.N.P. LAB BLOOD ADD-ON Performing Organization Address City/[facility] Co de Phone Number [facility] [address] [place] [address] * (ABNORMAL) S-TSH (Thyroid-Stimulating Hormone - Sensitive) (02/07/2024 8:40 AM CDT) TSH, Sensitive 0.01(L) 0.3 - 4.2 mIU/L 02/08/2024 12:14 PM CDT DT Blood (Blood, Venous) 02/07/2024 8:40 AM CDT 02/08/2024 9:06 AM CDT Narrative Resulting Agency Comment Mailed In Specimen Zara Garvey APRN, C.N.P., D.N.P. LAB BLOOD ADD-ON Performing Organization Address City/[facility]/ZIP Co de Phone Number [facility] 200 [place] [address] * Thyroglobulin, Tumor Marker Reflex to LC-MS/MS or Immunoassay (02/07/2024 8:40 AM CDT) Thyroglobulin Antibody, S <1.8 <1.8 IU/mL 02/08/2024 2:39 PM CDT [facility] Comment: Thyroglobulin Antibody < 1.8 IU/mL. Thyroglobulin performed by Immunoassay to follow. Blood (Blood, Venous) 02/07/2024 8:40 AM CDT 02/08/2024 1:24 PM CDT Narrative Resulting Agency Comment Mailed In Specimen Zara Garvey APRN, C.N.P., D.N.P. LAB BLOOD NON ADD-ON [facility] [address] [place] [address] [facility] [address] [place] [address] documented in this encounter Visit Diagnoses Diagnosis Malignant Neoplasm Of Thyroid Papillary (HCC) documented in this encounter Additional Health Concerns Assessment Noted Time PHQ-9 Depression Total Score: 5 03/06/20 18 6:00 PM CDT documented as of this encounter Care Teams Mamma Logist Relationship Specialty Start Date End Date Elsewhere, Pcp PCP - General Internal Medicine 09/13/22 documented as of this encounter
--- OUTSIDE RECORDS SUMMARY | 2024-02-09 10:08 | XMS_ITS | Clinical Summary ---
Author Organization [facility] Address [address] [place] [address] Care Team Providers Care Manufacturing Coordinator Name Role Phone Elsewhere, Pcp Primary Care Provider Unavailabl e Source Comments Patient records contain information from all sites at [facility]. For routine questions regarding patient records, call [phone] during business hours, M-F 8:00 AM - 5:00 PM Central Time. Record requests for emergency care only can be directed to [phone] at any time.[facility] Allergies Active Allergy Reactions Criticality Noted [...] 1 tablet by mouth daily. Centrum (per nutritional services host) 10/09/2017 Active acetaminophen (TYLENOL) 500 mg tablet [...] with meals. 180 tablet 3 10/10/2022 Active vitamin B complex-folic acid (B Complex 1, with folic acid,) 0.4 mg tablet Take 1 tablet by mouth daily. 12/16/2016 Active diphenhydrAMINE-ac etaminophen (TYLENOL PM) 25-500 mg per tablet Take 1 tablet by mouth at bedtime as needed. 12/16/2016 Active levothyroxine (SYNTHROID, LEVOTHROID) 200 mcg tablet Take 1 tablet (200 mcg total) by mouth every morning before breakfast. 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 Thyroid Message Confirmation 02/08/2024 Orders Only Division of Endocrinology in [place], [place] [address] [place] [phone] Zara Garvey APRN, C.N.P., D.N.P. 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 Encounter For Checking And Testing Of Cardiac Pacemaker Pulse Generator Battery Discharge Disposition: Home or Self Care 12/19/2023 Clinical Communication Division of Endocrinology in [place], [place] [address] [place] [address] Zara Garvey APRN, C.N.P., D.N.P. medical question 12/15/2023 9:34 AM CDT - 12/15/2023 11:59 PM CDT Hospital Encounter Department of Laboratory Medicine and Pathology, [facility] in [address] [phone] Zara Garvey APRN, C.N.P., Kiko.N.P. Malignant Neoplasm Of Thyroid Papillary (HCC) Discharge Disposition: Home or Self Care 12/14/2023 3:00 PM CDT Virtual Visit Division of Endocrinology in [address] [phone] Zara Garvey APRN, C.N.P., Kiko.N.P. Malignant Neoplasm Of Thyroid Papillary (HCC) 12/06/2023 9:33 AM CDT - 12/06/2023 11:59 PM CDT Hospital Encounter Department of Radiology, [facility] in [address] [phone] Jemal Murrell M.B.B.S., M.D. Malignant Neoplasm Of Thyroid Papillary (HCC) Discharge Disposition: Home or Self Care 12/06/2023 8:59 AM CDT - 12/06/2023 9:32 AM CDT Hospital Encounter Department of Radiology, [facility] in [address] [phone] Jemal Murrell M.B.B.S., M.D. Malignant Neoplasm Of Thyroid Papillary (HCC) Discharge Disposition: Home or Self Care 12/06/2023 8:00 AM CDT - 12/06/2023 8:58 AM CDT Hospital Encounter Department of Radiology, [facility] in [address] [phone] Jemal Murrell M.B.B.S., M.D. Malignant Neoplasm Of Thyroid Papillary (HCC) Discharge Disposition: Home or Self Care 12/04/2023 10:30 AM CDT Clinical Communication Virtual Review in [address] [phone] Pre-visit Intake from Last 3 Months Immunizations Name Administration [...] = 0.6 oz pu re alcohol) occassional [facility] Utilities Answer Date Recorded In the past 12 months has e [employer], gas, oil, or water [employer] threatened to shut off services in your [...] week 08/07/2022 How often do you attend [facility] or [facility] services? 1 to 4 times per year [...] Answer Date Recorded PHQ-2 Score 5 01/25/2019 [facility] - Occupational Stress Questionnaire Answer Date Recorded [...] your living situation today? I have a rajesh place to live 12/01/2023 Education Answer [...] Comments Blood Pressure 138/86 09/25/2023 3:03 PM BELLOWS CHARGER ASSEMBLER Pulse 73 09/25/2023 3:03 PM BELLOWS CHARGER ASSEMBLER Temperature 36.6 ??C (97.9 ??F) 04/10/2023 10:00 AM C DT Respiratory Rate 16 04/10/2023 6:41 AM CDT Oxygen Saturation 94% 04/10/2023 10:10 AM CDT Inhaled Oxygen Concentration - - Weight 72 kg (158 lb 12.8 oz) 09/25/2023 3:03 PM BELLOWS CHARGER ASSEMBLER Height 170.1 cm (5' 6.97) 09/25/2023 3:03 PM CS T Body Mass Index 24.89 09/25/2023 3:03 PM BELLOWS CHARGER ASSEMBLER Plan of Treatment Upcoming Encounters Date Type Department Care Team (Late st Contact Info) Description 03/27/2024 9:10 AM CDT Appointment Department of Laboratory Medicine and Pathology, [facility], in [place], [place] [address] [place] [address] Zara Garvey APRN, C.N.P., D.N.P. [address] [place] [address] Health Maintenance Due Date Last Done Comments COVID-19 Vaccine (2022- 4 season) 2023 12/27/2021, 06/09/2021, 10/22/2020, Additional [...] Stimulating Hormone (TSH) test for thyroid function 02/06/2025 02/07/2024, 12/06/2023, 02/01/2023, Additional history exists DTaP,Tdap,and Td Vaccines (3 - Td or Tdap) 02/08/2032 02/07/2022, 06/20/2012 Pneumococcal vaccine (65+ years) Completed 09/16/19 15, 06/27/2008 Zoster Vaccines Completed 05/13/2019, 01/21/2019 Influenza Vaccine Completed 06/06/2023, , 05/14/2021, Additional history exists Medical Devices Implanted Type Area Community Youth Secretary Device Identifier Shelf Expiration Date Model / Serial / Lot Lead [id number] Road Machine Runner Attain Ability - Darling [id number] Implanted:Qty: 1 on 10/09/2017 Cardiac Lead Coronary Medtronic / [id number] / Description:Device Manufactu rer - [email or web address]. Body Location - Other. Coronary Sinus. Device Status Text - CARD [id number]. Conversions - Default Historical Implant Device Implanted:03/07 (Quantity not on file) Cardiac Valve Prosthesis Aorta Description:Device Status Te xt - CardValve. pig valve placed on 11-16-2016. Mesh Or Patch-08/14/2022 Implanted:08/14 (Quantity not on file) Mesh or Patch Stomach Description:Hernia Mesh 2 Dental Bridges Misc Other Mouth Description:Upper and Lower Dental Bridge. Pacer [place]ancia Xt Sr Mri - Darling [id number] Implanted:Qty: 1 on 10/09/2017 Pacemaker Other/Legacy - See Implant Description Medtronic / [id number] / Description:Device Manufactu rer - [employer] Body Location - Other. Left. Device Status Text - [id number]. Vascular Other-08/14/2016 Implanted:08/14 (Quantity not on file) Vascular Other Right: Arm Description:A/V fistula Procedures Procedure Name Priority Date/Time Associated Diagnosis Comments VT THYROGLOBULIN SERUM Routine 02/07/2024 8:40 AM CDT T4 (THYROXINE), FREE, S Routine 02/07/2024 8:40 AM CDT Malignant Neoplasm Of Thyroid Papillary (HCC) THYROID-STIMULATING HORMONE-SENSITIVE (S-TSH) Routine 02/07/2024 8:40 AM CDT Malignant Neoplasm Of Thyroid Papillary (HCC) THYROGLOBULIN, TM, REFLEX TO LC-MS/MS OR IMMUNOASSAY, S Routine 02/07/2024 8:40 AM CDT Malignant Neoplasm Of Thyroid Papillary (HCC) PACER REMOTE FOLLOW UP Routine 12/22/2023 12:54 PM CDT Encounter For Checking And Testing Of Cardiac Pacemaker Pulse Generator Battery CT CHEST WITHOUT IV CONTRAST RAD - [...] CDT Malignant Neoplasm Of Thyroid Papillary (HCC) VT THYROGLOBULIN SERUM Routine 12/06/2023 7:57 AM CDT THYROGLOBULIN, TM, REFLEX TO LC-MS/MS OR IMMUNOASSAY, S Routine 12/06/2023 7:57 AM CDT Malignant Neoplasm Of Thyroid Papillary (HCC) T4 (THYROXINE), FREE, S Routine 12/06/2023 7:57 AM CDT Malignant Neoplasm Of Thyroid Papillary (HCC) THYROID-STIMULATING HORMONE-SENSITIVE (S-TSH) Routine 12/06/2023 7:57 AM CDT Malignant Neoplasm Of Thyroid Papillary (HCC) SODIUM, S/P Routine 05/02/2023 9:28 AM CDT Prosthesis Aortic Valve POTASSIUM, S/P Routine 05/02/2023 9:28 AM CDT Prosthesis Aortic Valve CREATININE WITH EGFR, S/P Routine 05/02/2023 9:28 AM CDT Prosthesis Aortic Valve from Last 3 Months or Most Recently Relevant to Health Maintenance Results * (ABNORMAL) Thyroglobulin, Tumor Marker by Immunoassay (02/07/2024 8:40 AM CDT) Only the most recent of2 resultswithin the time period is included. Thyroglobulin, Tumor Marker, IA 2.8(H) ng/mL 02/08/2024 [...] testing methods are immunoenzymatic assays manufactured by [employer] and performed on the [employer] DXI 800. Values obtained from different assay methods or kits may be different and cannot be used interchangeably. The results cannot be interpreted as absolute evidence for the presence or absence of malignant disease. Blood 02/07/2024 8:40 AM CDT 02/08/2024 1:24 PM CDT Narrative Resulting Agency Comment Mailed In Specimen Zara Garvey APRN, C.N.P., D.N.P. LAB BLOOD NON ADD-ON Performing Organization Address [facility] Co de Phone Number [facility] [address] [place] [address] [facility] [address] [address] * Thyroglobulin, Tumor Marker Reflex to LC-MS/MS or Immunoassay (02/07/2024 8:40 AM CDT) Only the most recent of2 resultswithin the time period is included. Thyroglobulin Antibody, S <1.8 <1.8 IU/mL 02/08/2024 2:39 PM CDT [facility] Comment: Thyroglobulin Antibody < 1.8 IU/mL. Thyroglobulin performed by Immunoassay to follow. Blood (Blood, Venous) 02/07/2024 8:40 AM CDT 02/08/2024 1:24 PM CDT Narrative Resulting Agency Comment Mailed In Specimen Zara Garvey APRN, C.N.P., D.N.P. LAB BLOOD NON ADD-ON Performing Organization Address [facility] Co de Phone Number [facility] [address] [place] [address] [facility] [address] [place] [address] * (ABNORMAL) S-TSH (Thyroid-Stimulating Hormone - Sensitive) (02/07/2024 8:40 AM CDT) Only the most recent of2 resultswithin the time period is included. TSH, Sensitive 0.01(L) 0.3 - 4.2 mIU/L 02/08/2024 12:14 PM CDT DTL Blood (Blood, Venous) 02/07/2024 8:40 AM CDT 02/08/2024 9:06 AM CDT Narrative Resulting Agency Comment Mailed In Specimen Jass Sky APRN.N.P., D.N.P. LAB BLOOD ADD-ON [facility] [address] [place] [address], [facility] [address] [place] [address] * (ABNORMAL) T4 (Thyroxine), Free (02/07/2024 8:40 AM CDT) Only the most recent of2 resultswithin the time period is included. T4 (Thyroxine), Free, S 3.1(H) 0.9 - 1.7 ng/dL 02/08/2024 12:14 PM CDT DTL Blood (Blood, Venous) 02/07/2024 8:40 AM CDT 02/08/2024 9:06 AM CDT Narrative Resulting Agency Comment Mailed In Specimen Jass Sky APRN.N.P., D.N.P. LAB BLOOD ADD-ON Performing Organization Address City/[facility]/ZIP Co de Phone Number [facility] [address] [place], [place] [id number] [place] [address] [address] [place] [address] * PACER REMOTE FOLLOW UP (12/22/2023 12:54 PM CDT) Date Time Interrogation Session [id number] [facility] Implantable Pulse Generator Community Youth Secretary Lamppost [facility] Implantable Pulse Generator Model [id number] [place] XT SR MRI [facility] Implantable Pulse Generator Serial Number [id number] [facility] Type Interrogation Session Remote [facility] Clinic Name [facility] Implantable Pulse Generator Type Pacemaker [facility] Implantable Pulse Generator Implant Date 20171009 [facility] Implantable Lead Community Youth Secretary Medtronic [facility] Implantable Lead Model 4196 Attain Ability MRI SureScan [facility] Implantable Lead Serial Number [id number] [facility] Implantable Lead Implant Date 20171009 [facility] Implantable Lead Polarity Type Bipolar Lead [facility] Implantable Lead Location Detail 1 UNKNOWN [facility] Implantable Lead Special Function Lead length: 88 cm [facility] Implantable Lead Location Left Ventricle [facility] Cholo Setting Mode (NBG Code) VVIR [facility] Cholo Setting Lower Rate Limit 60 {beats}/ min [facility] Cholo Setting Maximum Sensor Rate 130 {beats}/ min [facility] Lead Channel Setting Sensing Polarity Bipolar [facility] Lead Channel Setting Sensing Anode Location Right Ventricle [facility] Lead Channel Setting Sensing Anode Terminal Ring [facility] Lead Channel Setting Sensing Cathode Location Right Ventricle [facility] Lead Channel Setting Sensing Cathode Terminal Tip [facility] Lead Channel Setting Sensing Sensitivity 0.9 mV [facility] Lead Channel Setting Pacing Polarity Bipolar [facility] Lead Channel Setting Pacing Anode Location Right Ventricle [facility] Lead Channel Setting Pacing Anode Terminal Ring [facility] Lead Channel Setting Sensing Cathode Location Right Ventricle [facility] Lead Channel Setting Sensing Cathode Terminal Tip [facility] Lead Channel Setting Pacing Pulse Width 0.4 ms [facility] Lead Channel Setting Pacing Amplitude 3 V [facility] Lead Channel Setting Pacing Capture Mode Adaptive [facility] Zone Setting Type Category VF [facility] Zone Setting Type Category VT [facility] Zone Setting Type Category VT [facility] Zone Setting Type Category VT [facility] Zone Setting Detection Interval 360 ms [facility] Zone Setting Type Category ATRIAL_FIBRILLATI ON [facility] Zone Setting Type Category AT/AF [facility] Lead Channel Impedance Value 798 ohm [facility] Lead Channel Impedance Value 342 ohm [facility] Lead Channel Sensing Intrinsic Amplitude 15.75 mV [facility] Lead Channel Sensing Intrinsic Amplitude 15.75 mV [facility] Lead Channel Pacing Threshold Amplitude 1.375 V [facility] Lead Channel Pacing Threshold Pulse Width 0.4 ms [facility] Battery Date Time of Measurements [id number] [facility] Battery NON DESTRUCTIVE EVALUATION SPECIALIST Trigger 2.625 [facility] Battery Remaining Longevity 88 mo [facility] Battery Voltage 2.99 V [facility] Cholo Statistic Date Time Start [id number] [facility] Cholo Statistic Date Time End [id number] [facility] Cholo Statistic RV Percent Paced 98.38 % [facility] Episode Statistic Recent Count 0 [facility] Episode Statistic Type Category Patient Activated [facility] Episode Statistic Recent Count 0 [facility] Episode Statistic Type Category VT [facility] Episode Statistic Recent Count 0 [facility] Episode Statistic Type Category VT [facility] Episode Statistic Recent Date Time Start [id number] [facility] Episode Statistic Recent Date Time End F[facility] Episode Statistic Recent Date Time Start [id number] [facility] Episode Statistic Recent Date [...] SYSTEM Episode Statistic Total Date Time Start [id number] [facility] Episode Statistic Total Date Time End [facility] Episode Statistic Total Date Time Start [id number] [facility] Episode Statistic Total Date Time End [facility] Episode Statistic Total Date Time Start [id number] [facility] Episode Statistic Total Date Time End [facility] Anatomical Region Laterality Modality Other 12/21/2023 11:4 3 PM CDT Narrative 12/26/2023 6:14 PM CDT PURPOSE OF VISIT: ??Routine remote transmission. PRESENTING EGM: ??CRITICAL CARE TRANSPORT NURSE at 60 bpm VENTRICULAR ARRHYTHMIAS: ?No new events. BATTERY LONGEVITY: Expected battery longevity trends reviewed and are stable and consistent with device settings and use. SUMMARY: All device function appears normal. SIC=0. FOLLOW UP: Next routine follow-up will be in 3 months via [facility] transmission. DEVICE RN: Cheryl Lambert RN Provider statement: This patient underwent device interrogation. I agree that the device interrogation was medically indicated to provide appropriate care and continue routine device interrogations as indicated. Elias Alston M.D., Ph.D. CV IMPLANTABLE C ARDIAC DEVICE * CT Chest without IV Contrast (12/06/2023 [...] as a 9 mm lower leftparatracheal node (3/203). No new lymphadenopathy. Postoperative changes [...] in the chronic large ascendingaortic pseudoaneurysm. Jemal aGrcia, M.D. I MG CT PROCEDURES * BMD [...] Bone Mineral Density (BMD) analysis performed on [employer] with serial number [id number]. ? FINDINGS: Left Hip: Femur Neck: BMD [...] including images and graphs, is available in [employer]. In the absence of other causes of [...] Bone Mineral Density (BMD) analysis performed on [employer] with serialnumber [id number]. FINDINGS: Left Hip: Femur Neck: BMD = [...] Garcia, M.D. I MG US PROCEDURES * Sodium (05/02/2023 9:28 AM CDT) Sodium, S 142 135 - 145 mmol/L 05/02/2023 10:49 AM CDT DTL Blood (Blood, Venous) 05/02/2023 9:28 AM CDT 05/02/2023 10:09 AM CDT Devi Stafford APRN, C.N.P., M.S.N. LAB BLOOD ADD-ON Performing Organization Address City/[facility] Co de Phone Number [facility] [address] [place] [address] * Potassium (05/02/2023 9:28 AM CDT) Potassium, S 4.7 3.6 - 5.2 mmol/L 05/02/2023 10:49 AM CDT DT Blood (Blood, Venous) 05/02/2023 9:28 AM CDT 05/02/2023 10:09 AM CDT Devi Stafford APRN, C.N.P., M.S.N. LAB BLOOD ADD-ON Performing Organization Address City/[facility] Co de Phone Number [facility] [address] [place] [address], [place] [address] * (ABNORMAL) Creatinine with Estimated GFR (05/02/2023 9:28 AM CDT) Creatinine 2.09(H) 0.74 - 1.35 mg/dL 05/02/2023 10:49 AM CDT DTL Estimated GFR (eGFR) 31(L) >=60 mL/min/BSA 05/02/2023 10:49 AM CDT DTL Comment: Estimated GFR calculated using the 2020 CKD_EPI creatinine equation. Blood (Blood, Venous) 05/02/2023 9:28 AM CDT 05/02/2023 10:09 AM CDT Devi Stafford APRN, C.N.P., M.S.N. LAB BLOOD ADD-ON [facility] [address] [place] [address], [place] DTL [facility] [address] [place] [address] from Last 3 Months or Most Recently Relevant to Health Maintenance Advance Directives For more information, please contact: [phone] Documents on File Type Date Recorded Patient Shelf Filler Expl anation Advance Directives 2002 12:00 AM [...] Answer Comments Full Code: Discussed Care Teams Manufacturing Coordinator Relationship Specialty Start Date End Date Elsewhere, Pcp PCP - General Internal Medicine 09/13/22
--- OUTSIDE RECORDS SUMMARY | 2024-02-09 10:08 | XMS_ITS | Referral Summary ---
Author Organization [facility] Address [address] [place] [address] Care Team Providers Care Welder Fitter Name Role Phone Elsewhere, Pcp Primary Care Provider Unavailabl e Source Comments Patient records contain information from all sites at [facility]. For routine questions regarding patient records, call [phone] during business hours, M-F 8:00 AM - 5:00 PM Central Time. Record requests for emergency care only can be directed to [phone] at any time.[facility] Encounters Date Type Department Care Team Description 02/08/2024 Clinical Communication Division of Endocrinology in [place], [place] [address] [place] [phone] Zara Garvey APRN, C.N.P., D.N.P. Thyroid Message Confirmation 02/08/2024 Orders Only Division of Endocrinology in [place], [place] [address] [place] [phone] Zara Garvey APRN, C.N.P., D.N.P. 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 Encounter For Checking And Testing Of Cardiac Pacemaker Pulse Generator Battery Discharge Disposition: Home or Self Care 12/19/2023 Clinical Communication Division of Endocrinology in [place], [place] [address] [place] [address] Zara Garvey APRN, C.NTato, D.N.P. medical question 12/15/2023 9:34 AM CDT - 12/15/2023 11:59 PM CDT Hospital Encounter Department of Laboratory Medicine and Pathology, [facility] in [place], [place] [address] [place] [phone] Zara Garvey APRN, C.NTripp., D.N.P. Malignant Neoplasm Of Thyroid Papillary (HCC) Discharge Disposition: Home or Self Care 12/14/2023 3:00 PM CDT Virtual Visit Division of Endocrinology in [place], [place] [address] [place] [phone] Zara Garvey APRN, C.NTripp., D.N.P. Malignant Neoplasm Of Thyroid Papillary (HCC) 12/06/2023 9:33 AM CDT - 12/06/2023 11:59 PM CDT Hospital Encounter Department of Radiology, [facility] in [place], [place] [address] [place] [phone] Jemal Murrell M.B.B.S., M.D. Malignant Neoplasm Of Thyroid Papillary (HCC) Discharge Disposition: Home or Self Care 12/06/2023 8:59 AM CDT - 12/06/2023 9:32 AM CDT Hospital Encounter Department of Radiology, [facility] in [place], [place] [address] [place] [phone] Jemal Murrell M.B.B.S., M.D. Malignant Neoplasm Of Thyroid Papillary (HCC) Discharge Disposition: Home or Self Care 12/06/2023 8:00 AM CDT - 12/06/2023 8:58 AM CDT Hospital Encounter Department of Radiology, [facility] in [place], [place] [address] [place] [phone] Jemal Murrell M.B.B.S., M.D. Malignant Neoplasm Of Thyroid Papillary (HCC) Discharge Disposition: Home or Self Care 12/04/2023 10:30 AM CDT Clinical Communication Virtual Review in [place] [address] [place] [address] Pre-visit Intake from Last 3 Months Allergies Active Allergy [...] tablet by mouth daily. 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 1 to 4 times per year [...] Answer Date Recorded PHQ-2 Score 5 01/25/2019 [facility] of Occupat ional Health - Occupational [...] Comments Blood Pressure 138/86 09/25/2023 3:03 PM LATHMAKER Pulse 73 09/25/2023 3:03 PM LATHMAKER Temperature 36.6 ??C (97.9 ??F) 04/10/2023 10:00 AM C DT Respiratory Rate 16 04/10/2023 6:41 AM CDT Oxygen Saturation 94% 04/10/2023 10:10 AM CDT Inhaled Oxygen Concentration - - Weight 72 kg (158 lb 12.8 oz) 09/25/2023 3:03 PM LATHMAKER Height 170.1 cm (5' 6.97) 09/25/2023 3:03 PM CS T Body Mass Index 24.89 09/25/2023 3:03 PM LATHMAKER Plan of Treatment Upcoming Encounters Date Type Department Care Team (Late st Contact Info) Description 03/27/2024 9:10 AM CDT Appointment Department of Laboratory Medicine and Pathology, [facility], in [place], [place] [address] [place] [address] Zara Garvey, ROSAURA, C.N.P., D.N.P. [address] [place] [address] Medical Devices Implanted Type Area Clam Digger Device Identifier Shelf Expiration Date Model / Serial / Lot Lead [id number] Motor Vehicles Inspector Attain Ability - Darling [id number] Implanted:Qty: 1 on 10/09/2017 Cardiac Lead Coronary Medtronic / [id number] / Description:Device Manufactu rer - [employer] Body Location - Other. Coronary Sinus. Device Status Text - CARD [id number]. Conversions - Default Historical Implant Device Implanted:03/07 (Quantity not on file) Cardiac Valve Prosthesis Aorta Description:Device Status Te xt - CardValve. pig valve placed on 11-16-2016. Mesh Or Patch-08/14/2022 Implanted:08/14 (Quantity not on file) Mesh or Patch Stomach Description:Hernia Mesh 2 Dental Bridges Misc Other Mouth Description:Upper and Lower Dental Bridge. Pacer Preeti Xt Sr Mri - Darling [id number] Implanted:Qty: 1 on 10/09/2017 Pacemaker Other/Legacy - See Implant Description Medtronic / [id number] 1S / Description:Device Manufactu rer - [employer] Body Location - Other. Left. Device Status Text - [id number]. Vascular Other-08/14/2016 Implanted:08/14 (Quantity not on file) Vascular Other Right: Arm Description:A/V fistula Procedures Procedure Name Priority Date/Time Associated Diagnosis Comments TX THYROGLOBULIN SERUM Routine 02/07/2024 8:40 AM CDT [...] CDT Malignant Neoplasm Of Thyroid Papillary (HCC) TX THYROGLOBULIN SERUM Routine 12/06/2023 7:57 AM CDT [...] IA 2.8(H) ng/mL 02/08/2024 4:08 PM CDT [facility] Comment: ----REFERENCE VALUE---- Athyrotic <0.1 Intact Thyroid <=33 Thyroglobulin Interpretation SEE COMMENT 02/08/2024 4:08 PM CDT [facility] Comment: Thyroglobulin (Tg) levels must be [...] testing methods are immunoenzymatic assays manufactured by [employer]. and performed on the [employer]Pet DXI 800. Values obtained from different assay methods or kits may be different and cannot be used interchangeably. The results cannot be interpreted as absolute evidence for the presence or absence of malignant disease. Blood 02/07/2024 8:40 AM CDT 02/08/2024 1:24 PM CDT Narrative Resulting Agency Comment Mailed In Specimen Jass Sky APRN.N.P., D.N.P. LAB BLOOD NON ADD-ON Performing Organization Address [facility] de Phone Number [facility] [address] [place] [address] [facility] [address] [place] [address] * Thyroglobulin, Tumor Marker Reflex to LC-MS/MS or Immunoassay (02/07/2024 8:40 AM CDT) Only the most recent of2 resultswithin the time period is included. Thyroglobulin Antibody, S <1.8 <1.8 IU/mL 02/08/2024 2:39 PM CDT [facility] Comment: Thyroglobulin Antibody < 1.8 IU/mL. Thyroglobulin performed by Immunoassay to follow. Blood (Blood, Venous) 02/07/2024 8:40 AM CDT 02/08/2024 1:24 PM CDT Narrative Resulting Agency Comment Mailed In Specimen Jass Sky APRN.N.P., D.N.P. LAB BLOOD NON ADD-ON Performing Organization Address City/[facility]/ZIP Co de Phone Number [facility] [address] [place] [address] [facility] [address] [place] [address] * (ABNORMAL) S-TSH (Thyroid-Stimulating Hormone - Sensitive) (02/07/2024 8:40 AM CDT) Only the most recent of2 resultswithin the time period is included. TSH, Sensitive 0.01(L) 0.3 - 4.2 mIU/L 02/08/2024 12:14 PM CDT DTL Blood (Blood, Venous) 02/07/2024 8:40 AM CDT 02/08/2024 9:06 AM CDT Narrative Resulting Agency Comment Mailed In Specimen Zara Garvey APRN, Jass.N.P., D.N.P. LAB BLOOD ADD-ON Performing Organization Address City/[facility]/ZIP Co de Phone Number [facility] [address] 200 [place] [address] * (ABNORMAL) T4 (Thyroxine), Free (02/07/2024 8:40 AM CDT) Only the most recent of2 resultswithin the time period is included. T4 (Thyroxine), Free, S 3.1(H) 0.9 - 1.7 ng/dL 02/08/2024 12:14 PM CDT DT Blood (Blood, Venous) 02/07/2024 8:40 AM CDT 02/08/2024 9:06 AM CDT Narrative Resulting Agency Comment Mailed In Specimen Zara Garvey APRN, C.N.P., D.N.P. LAB BLOOD ADD-ON [facility] [address] [place], [place] [phone] [place] [address] 200 [place] [address] * PACER REMOTE FOLLOW UP (12/22/2023 12:54 PM CDT) Date Time Interrogation Session [id number] [facility] Implantable Pulse Generator Clam Digger Medtronic [facility] Implantable Pulse Generator Model [id number] Preeti XT SR MRI [facility] Implantable Pulse Generator Serial Number [id number] [facility] Type Interrogation Session Remote [facility] Clinic Name [facility] [place] [facility] Implantable Pulse Generator Type Pacemaker [facility] Implantable Pulse Generator Implant Date [id number] [facility] Implantable Lead Clam Digger Medtronic [facility] Implantable Lead Model [id number] Attain Ability MRI SureScan [facility] Implantable Lead Serial Number [id number] [facility] Implantable Lead Implant Date [id number] [facility] Implantable Lead Polarity Type Bipolar Lead [facility] Implantable Lead Location Detail 1 UNKNOWN [facility] Implantable Lead Special Function Lead length: 88 cm [facility] Implantable Lead Location Left Ventricle [facility] Cholo Setting Mode (NBG Code) VVIR [facility] Cholo Setting Lower Rate Limit 60 {beats}/ min [facility] [place]olo Setting Maximum Sensor Rate 130 {beats}/ min [facility] Lead Channel Setting Sensing Polarity Bipolar [facility] Lead Channel Setting Sensing Anode Location Right Ventricle [facility] Lead Channel Setting Sensing Anode Terminal Ring [facility] Lead Channel Setting Sensing Cathode Location Right Ventricle [facility] Lead Channel Setting Sensing Cathode Terminal Tip [facility] Lead Channel Setting Sensing Sensitivity 0.9 mV [facility] Lead Channel Setting Pacing Polarity Bipolar [facility] Lead Channel Setting Pacing Anode Location Right Ventricle [facility] Lead Channel Setting Pacing Anode Terminal Ring [facility] Lead Channel Setting Sensing Cathode Location Right Ventricle [facility] Lead Channel Setting Sensing Cathode Terminal Tip [facility] Lead Channel Setting Pacing Pulse Width 0.4 ms [facility] Lead Channel Setting Pacing Amplitude 3 V [facility] Lead Channel Setting Pacing Capture Mode Adaptive [facility] Zone Setting Type Category VF [facility] Zone Setting Type Category VT [facility] Zone Setting Type Category VT [facility] Zone Setting Type Category VT [facility] Zone Setting Detection Interval 360 ms [facility] Zone Setting Type Category ATRIAL_FIBRILLATI ON [facility] Zone Setting Type Category AT/AF [facility] Lead Channel Impedance Value 798 ohm [facility] Lead Channel Impedance Value 342 ohm [facility] Lead Channel Sensing Intrinsic Amplitude 15.75 mV [facility] Lead Channel Sensing Intrinsic Amplitude 15.75 mV [facility] Lead Channel Pacing Threshold Amplitude 1.375 V [facility] Lead Channel Pacing Threshold Pulse Width 0.4 ms [facility] Battery Date Time of Measurements [facility] Battery SPIDER ASSEMBLER Trigger 2.625 [facility] Battery Remaining Longevity 88 mo [facility] Battery Voltage 2.99 V F[facility] [...] SYSTEM Episode Statistic Total Date Time Start [id number] [facility] Episode Statistic Total Date Time End [facility] Episode Statistic Total Date Time Start [facility] Episode Statistic Total Date Time End [facility] Anatomical Region Laterality Modality Other 12/21/2023 11:4 3 PM CDT Narrative 12/26/2023 6:14 PM CDT PURPOSE OF VISIT: ??Routine remote transmission. PRESENTING EGM: ??OLIVE PACKER at 60 bpm VENTRICULAR ARRHYTHMIAS: ?No new events. BATTERY LONGEVITY: Expected battery longevity trends reviewed and are stable and consistent with device settings and use. SUMMARY: All device function appears normal. SIC=0. FOLLOW UP: Next routine follow-up will be in 3 months via [employer] transmission. DEVICE RN: Cheryl Lambert RN Provider [...] Bone Mineral Density (BMD) analysis performed on [employer] with serial number [id number]. ? FINDINGS: Left Hip: Femur Neck: BMD [...] Bone Mineral Density (BMD) analysis performed on Wind[employer] Power ProductsXA with serialnumber [id number]. FINDINGS: Left Hip: Femur Neck: BMD = [...] measurement. IMPRESSION: Low bone density (Osteopenia) Jemal Garcia M.D. I MG DXA PROCEDURES * US [...] Jemal Garcia M.D. I MG US PROCEDURES * Sodium (05/02/2023 9:28 AM CDT) Pathologist [facility] Sodium, S 142 135 - 145 mmol/L 05/02/2023 10:49 AM CDT DTL Blood (Blood, Venous) 05/02/2023 9:28 AM CDT 05/02/2023 10:09 AM CDT Devi Stafford APRN, C.N.P., M.S.N. LAB BLOOD ADD-ON Performing Organization Address City/[facility]/ZIP Co de Phone Number [facility] [address] 200 [place] [address] * Potassium (05/02/2023 9:28 AM CDT) [facility] Potassium, S 4.7 3.6 - 5.2 mmol/L 05/02/2023 10:49 AM CDT DT Blood (Blood, Venous) 05/02/2023 9:28 AM CDT 05/02/2023 10:09 AM CDT Jass Barnard APRN.N.Marilee., M.S.N. LAB BLOOD ADD-ON Performing Organization Address City/[facility]/ZIP Co de Phone Number [facility] [address] [place] [address] * (ABNORMAL) Creatinine with Estimated GFR (05/02/2023 9:28 AM CDT) [facility] Creatinine 2.09(H) 0.74 - 1.35 mg/dL 05/02/2023 10:49 AM CDT DTL Estimated GFR (eGFR) 31(L) >=60 mL/min/BSA 05/02/2023 10:49 AM CDT DTL Comment: Estimated GFR calculated using the 2020 CKD_EPI creatinine equation. Blood (Blood, Venous) 05/02/2023 9:28 AM CDT 05/02/2023 10:09 AM CDT Devi Stafford APRN, C.N.P., M.S.N. LAB BLOOD ADD-ON [facility] [address] [place] [address], [place] [facility] [address] [place] [address] from Last 3 Months or Most Recently Relevant to Health Maintenance Advance Directives For more information, please contact: [phone] Documents on File Type Date Recorded Patient Retail Sales Vitamin Consultant Expl anation Advance Directives 2002 12:00 AM [...] Answer Comments Full Code: Discussed Care Teams Welder Fitter Relationship Specialty Start Date End Date Elsewhere, Pcp PCP - General Internal Medicine 1/31/23
--- OUTSIDE RECORDS SUMMARY | 2024-02-09 10:08 | XMS_ITS | Encounter Summary ---
Author Organization [facility] Address [address] [place] [address] Care Team Providers Care Supervisor Word Processing Name Role Phone Elsewhere, Pcp Primary Care Provider Unavailabl e Encounter Details Date Type Department Care Team (Late st Contact Info) Description 02/08/2024 Orders Only Division of Endocrinology in [place], [place] [address] [place] [phone] Zara Garvey, ROSAURA, C.N.P., D.N.P. 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 1 to 4 times per year 08/07/2022 Do you belong to any clubs o r organizations such as pentecostalism groups, unions, fraternal or athletic groups, or [...] Answer Date Recorded PHQ-2 Score 5 01/25/2019 [facility] of Occupat ional Health - [...] your living situation today? I have a [facility] place to live 12/01/2023 Education Answer [...] Appointment Department of Laboratory Medicine and Pathology, [facility], in [place], [place] 200 [place] [phone] Zara Garvey, INVOICE MACHINE OPERATOR, C.N.P., D.N.P. 200 [place] [address] Scheduled Orders Name Type Priority Associated Diagnoses Orde r Schedule S-TSH (Thyroid-Stimulating Hormone - Sensitive) Lab Routine Malignant Neoplasm Of Thyroid Papillary (HCC) Expected: 03/21/2024, Expires: 05/10/2025 T4 (Thyroxine), Free Lab Routine Malignant Neoplasm Of Thyroid Papillary (HCC) Expected: 03/21/2024, Expires: 05/10/2025 documented as of this encounter Visit Diagnoses Diagnosis Malignant Neoplasm Of Thyroid Papillary (HCC)- Primary documented in this encounter Additional Health Concerns Assessment Noted Time PHQ-9 Depression Total Score: 5 03/06/20 18 6:00 PM CDT documented as of this encounter Care Teams Supervisor Word Processing Relationship Specialty Start Date End Date Elsewhere, Pcp PCP - General Internal Medicine 09/13/22 documented as of this encounter
--- OUTSIDE RECORDS SUMMARY | 2024-02-09 10:08 | XMS_ITS | Encounter Summary ---
Author Organization [facility] Address [address] [place] [address] Care Team Providers Care Commercial Loan Closer Name Role Phone Elsewhere, Pcp Primary Care Provider Unavailabl e Reason for Visit * Reason Onset Date Comments Thyroid Message Confirmation 02/08/2024 Encounter Details Date Type Department Care Team (Latest Contact Info) Description 02/08/2024 Clinical Communication Division of Endocrinology in [place], [place] [address] [place] [address] Zara Garvey, ROSAURA, C.N.P., D.N.P. [address] [place] [phone] Thyroid Message Confirmation Social History Tobacco Use Types Packs/Day Years Used Date Smoking Tobacco: Former Cigarettes 0 01/12/1955 - 01/16/1985 Smokeless Tobacco: Never Alcohol Use Standard Drinks/Week Comments Yes 10 (1 standard drink = 0.6 oz pu re alcohol) occassional [facility] Utilities Answer Date Recorded In the past 12 months has e [employer] gas, oil, or water [employer] threatened to shut off services in your [...] any clubs o r organizations such as hindu groups, unions, fraternal or athletic groups, or [...] 01/25/2019 [facility] Occupat ionnd Health - Occupational Stress Questionnaire Answer Date [...] your living situation today? I have a [facility] place to live 12/01/2023 Education Answer [...] Appointment Department of Laboratory Medicine and Pathology, [facility] in [place], [place] [address] [place] [phone] Zara Garvey APRN, C.N.P., D.N.P. [address] [place] [address] documented as of this encounter Visit Diagnoses Not on filedocumented in this encounter Additional Health Concerns Assessment Noted Time PHQ-9 Depression Total Score: 5 03/06/20 18 6:00 PM CDT documented as of this encounter Care Teams Commercial Loan Closer Relationship Specialty Start Date End Date Elsewhere, Pcp PCP - General Internal Medicine 09/13/22 documented as of this encounter
--- OUTSIDE RECORDS SUMMARY | 2024-02-09 10:08 | XMS_ITS | Encounter Summary ---
Author Organization [facility] Address [address] [place] [address] Care Team Providers Care Asset Specialist Name Role Phone Elsewhere, Pcp Primary Care Provider Unavailabl e Reason for Visit * Reason Onset Date Comments medical question 12/19/2023 Encounter Details Date Type Department Care Team (Latest Contact Info) Description 12/19/2023 Clinical Communication Division of Endocrinology in [place], [place] [address] [place] [address] Zara Garvey, ROSAURA, C.N.P., D.N.P. [address] [place] [phone] medical question Social History Tobacco Use Types Packs/Day Years Used Date Smoking Tobacco: Former Cigarettes 0 01/12/1955 - 01/16/1985 Smokeless Tobacco: Never Alcohol Use Standard Drinks/Week Comments Yes 10 (1 standard drink = 0.6 oz pu re alcohol) occassional [facility] Utilities Answer Date Recorded In the past 12 months has e [employer], gas, oil, or water [employer] threatened to shut off services in [...] Answer Date Recorded PHQ-2 Score 5 01/25/2019 [facility] Occupat ionok Health - Occupational Stress Questionnaire Answer Date [...] your living situation today? I have a [facility] place to live 12/01/2023 Education Answer [...] encounter Miscellaneous Notes * Telephone Encounter - Neema Neff R.N. - 12/19/2023 1:23 PM CDT SUBJECTIVE CHIEF COMPLAINT / REASON FOR CALL medical question Information Discussed Let Jose know to have his mail in kit blood drawn in about 8 weeks from when he changed his dose of levothyroxine. PLAN Disposition/Recommendation: self-care is appropriate at this time, patient encouraged to call back with questions Information/Education: patient/caller able to teach back Caller agreeable to plan of care: yes The following references were used: nursing clinical judgement documented in this encounter Plan of Treatment Upcoming Encounters Date Type Department Care Team (Late st Contact Info) Description 03/27/2024 9:10 AM CDT Appointment Department of Laboratory Medicine and Pathology, [facility] in [place], [place] [address] [place] [phone] Zara Garvey, ROSAURA, C.N.P., D.N.P. [address] [place] [address] documented as of this encounter Visit Diagnoses Not on filedocumented in this encounter Additional Health Concerns Assessment Noted Time PHQ-9 Depression Total Score: 5 03/06/20 18 6:00 PM CDT documented as of this encounter Care Teams Asset Specialist Relationship Specialty Start Date End Date Elsewhere, Pcp PCP - General Internal Medicine 09/13/22 documented as of this encounter
--- OUTSIDE RECORDS SUMMARY | 2024-02-09 10:08 | XMS_ITS | Encounter Summary ---
Author Organization [facility] Address [address] [place] [address] Care Team Providers Care Sketcher Name Role Phone Elsewhere, Pcp Primary Care Provider Unavailabl e Reason for Referral * MRI/CAT/PET Scan (Routine) - Closed Specialty Diagnoses / Procedures Referred By Jessica patel Referred To Contact Radiology Diagnoses Malignant Neoplasm Of Thyroid Papillary (HCC) Procedures CT Chest without IV Contrast Jemal Murrell M.B.B.S., M.D. 200 [place] [address] [facility] Referral ID Status Reason Start Date Expiration Date Visits Re quested Visits Authorized [id number] Closed 02/01/2023 02/01/2024 1 1 Reason for Visit * MRI/CAT/PET Scan (Routine) - Closed Specialty Diagnoses / Procedures Referred By Jessica patel Referred To Contact Radiology Diagnoses Malignant Neoplasm Of Thyroid Papillary (HCC) Procedures CT Chest without IV Contrast Jemal Murrell M.B.B.S., M.D. [address] [place] [phone] [facility] Referral ID Status Reason Start Date Expiration Date Visits Re quested Visits Authorized [id number] Closed 02/01/2023 02/01/2024 1 1 Encounter Details Date Type Department Care Team (Latest Contact Info) Description 12/06/2023 9:33 AM CDT - 12/06/2023 11:59 PM CDT Hospital Encounter Department of Radiology, [facility], in [place], [place] [address] [place] [address] Jemal Murrell M.B.B.S., M.D. [address] [place] [address] Malignant Neoplasm Of Thyroid Papillary (HCC) Discharge Disposition: Home or Self Care Social History Tobacco Use Types Packs/Day Years Used Date Smoking Tobacco: Former Cigarettes 0 01/12/1955 - 01/16/1985 Smokeless Tobacco: Never Alcohol Use Standard Drinks/Week Comments Yes 10 (1 standard drink = 0.6 oz pu re alcohol) occassional [facility] Utilities Answer Date Recorded In the past 12 months has [facility] [employer], gas, oil, or water [employer] threatened to shut off services in your [...] 08/07/2022 How often do you attend [facility] or mandaen services? 1 to 4 times per year [...] 01/25/2019 [facility] of Occupat ional [facility] - Occupational Stress Questionnaire Answer [...] your living situation today? I have a [facility] place to live 12/01/2023 Education Answer [...] 2 tablets by mouth daily with breakfast. diphenhydrAMINE-aceta minophen (TYLENOL PM) 25-500 mg per tablet Take [...] Take 20 mEq by mouth daily. 02/10/2020 melatonin 3 mg tablet Take 1 tablet by mouth at bedtime. 05/23/2017 multivitamin tablet Take 1 tablet by mouth daily. Centrum (per mica builder) 10/09/2017 omeprazole (PriLOSEC) 20 mg capsuleIndications:Ga stroesophageal [...] Monday/Monday/Mon day 3 tabs all other days 10/09/2017 levothyroxine (SYNTHROID, LEVOTHROID) 175 mcg tablet Take 1 tablet by mouth daily on Monday through Monday. Take 1/2 tablet by mouth daily on Sundays. 90 tablet 3 05/18/2023 12/14/2023 documented as of this encounter Plan of Treatment Upcoming Encounters Date Type Department Care Team (Late st Contact Info) Description 03/27/2024 9:10 AM CDT Appointment Department of Laboratory Medicine and Pathology, [facility] in [place], [place] [address] [place] [phone] Zara Garvey, LANDSCAPING AND GROUNDSKEEPING LABORER, C.N.P., D.N.P. [address] [place] [phone] documented as of this encounter Procedures Procedure [...] documented as of this encounter Care Teams Sketcher Relationship Specialty Start Date End Date Elsewhere, Pcp PCP - General Internal Medicine 09/13/22 documented as of this encounter
--- OUTSIDE RECORDS SUMMARY | 2024-02-09 10:08 | XMS_ITS ---
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 Past Plans Radiation Treatments * No radiation treatments are documented for this patient in [facility]. Treatments may have been administered in [...]
--- OUTSIDE RECORDS SUMMARY | 2024-02-09 10:08 | XMS_ITS | Encounter Summary ---
Author Organization [facility] Address [address] [place] [address] Care Team Providers Care Bedspring Assembler Name Role Phone Elsewhere, Pcp Primary Care Provider Unavailabl e Encounter Details Date Type Department Care Team (Latest Contact Info) Description 12/22/2023 4:00 AM CDT - 12/22/2023 11:59 PM CDT Hospital Encounter Department of Cardiovascular Diseases in [place], [place] [address] [place] [address] Elias Alston M.D., Ph.D. [address] [place] [phone] Encounter For Checking And Testing Of Cardiac Pacemaker Pulse Generator Battery Discharge Disposition: Home or Self Care Social History Tobacco Use Types Packs/Day Years Used Date Smoking Tobacco: Former Cigarettes 0 01/12/1955 - 01/16/1985 Smokeless Tobacco: Never Alcohol Use Standard Drinks/Week Comments Yes 10 (1 standard drink = 0.6 oz pu re alcohol) occassional [facility] Utilities Answer Date Recorded In the past 12 months has e electric, gas, oil, or water [employer] threatened to shut off services in your [...] How often do you attend chur or adventism services? 1 to 4 times per year 08/07/2022 Do you belong to any clubs o r organizations such as mosque groups, unions, fraternal or athletic groups, or [...] Answer Date Recorded PHQ-2 Score 5 01/25/2019 [facility] of Occupat ional Health - Occupational Stress [...] your living situation today? I have a [facility] place to live 12/01/2023 Education Answer [...] 1 tablet by mouth daily. Centrum (per career coach) 10/09/2017 omeprazole (PriLOSEC) [address] capsuleIndications:Gas [...] Department of Laboratory Medicine and Pathology, [facility], in [place], [place] [address] [place] [phone] Zara Garvey APRN, C.N.P., D.N.P. 200 [place] [phone] documented as of this encounter Procedures Procedure Name Priority Date/Time Associated Diagnosis Comments PACER REMOTE FOLLOW UP Routine 12/22/2023 12:54 PM CDT Encounter For Checking And Testing Of Cardiac Pacemaker Pulse Generator Battery documented in this encounter Results * PACER REMOTE FOLLOW UP (12/22/2023 12:54 PM CDT) Date Time Interrogation Session [id number] [facility] Implantable Pulse Generator Blueprint Assembler [employer] [facility] Implantable Pulse Generator Model [id number] Preeti XT SR MRI [facility] Implantable Pulse Generator Serial Number [id number] [facility] Type Interrogation Session Remote [facility] Clinic Name [facility] Implantable Pulse Generator Type Pacemaker [facility] Implantable Pulse Generator Implant Date [id number] [facility] Implantable Lead Blueprint Assembler Medtr[employer] [facility] Implantable Lead Model [id number] Attain Ability MRI SureScan [facility] Implantable Lead Serial Number [id number] [facility] Implantable [...] LAB SYSTEM Zone Setting Type Category VF [facility] Zone Setting Type Category VT [facility] Zone Setting Type Category VT [facility] Zone Setting Type Category VT [facility] Zone Setting Detection Interval 360 ms [facility] Zone Setting Type Category ATRIAL_FIBRILLATI ON [facility] Zone Setting Type Category AT/AF [facility] Lead Channel Impedance Value 798 ohm [facility] Lead Channel Impedance Value 342 ohm [facility] Lead Channel Sensing Intrinsic Amplitude 15.75 mV [facility] Lead Channel Sensing Intrinsic Amplitude 15.75 mV [facility] Lead Channel Pacing Threshold Amplitude 1.375 V [facility] Lead Channel Pacing Threshold Pulse Width 0.4 ms [facility] Battery Date Time of Measurements [facility] Battery SUPERVISOR OF GUIDANCE AND TESTING Trigger 2.625 [facility] Battery Remaining Longevity 88 mo [facility] Battery Voltage 2.99 V [facility] Cholo Statistic Date Time Start [id number] [facility] Cholo Statistic Date Time [...] SYSTEM Episode Statistic Recent Date Time Start [id number] [facility] Episode Statistic Recent Date [...] SYSTEM Episode Statistic Total Date Time Start [id number] [facility] Episode Statistic Total Date Time End [id number] [facility] Episode Statistic Total Date Time Start [id number] [facility] Episode Statistic Total Date Time End [facility] Episode Statistic Total Date Time Start [facility] Episode Statistic Total Date Time End [facility] Anatomical Region Laterality Modality Other 12/21/2023 11:4 3 PM CDT Narrative 12/26/2023 6:14 PM CDT PURPOSE OF VISIT: ??Routine remote transmission. PRESENTING EGM: ??PERCUSSION INSTRUMENT REPAIRER at 60 bpm VENTRICULAR ARRHYTHMIAS: ?No new [...] M.D., Ph.D. CV IMPLANTABLE C ARDIAC DEVICE documented in this encounter Visit Diagnoses Diagnosis Encounter For Checking And Testing Of Cardiac Pacemaker Pulse Generator Battery documented in this encounter Additional Health Concerns Assessment Noted Time PHQ-9 Depression Total Score: 5 03/06/20 18 6:00 PM CDT documented as of this encounter Care Teams Bedspring Assembler Relationship Specialty Start Date End Date Elsewhere, Pcp PCP - General Internal Medicine 09/13/22 documented as of this encounter
--- OUTSIDE RECORDS SUMMARY | 2024-02-09 10:08 | XMS_ITS ---
Author Organization [facility] Address [address] [place] [address] Care Team Providers Care Avionics Integration Engineer Name Role Phone Unavailable Unavailable Unavailable Surgery Details Not on file Complications Check Surgery Details section. Procedure Estimated Blood Loss Check Surgery Details section. Procedure Findings Check Surgery Details section. Procedure Specimens Taken Check Surgery Details section.
--- OUTSIDE RECORDS SUMMARY | 2024-02-09 10:08 | XMS_ITS | Encounter Summary ---
Author Organization [facility] Address [address] [place] [address] Care Team Providers Care Plastics Design Engineer Name Role Phone Elsewhere, Pcp Primary Care Provider Unavailabl e Reason for Referral * Outpatient (Routine) - Closed Specialty Diagnoses / Procedures Referred By Jessica patel Referred To Contact Diagnoses Malignant Neoplasm Of Thyroid Papillary (HCC) Procedures BMD Bone Density Spine Hips Jemal Murrell M.B.B.S., M.D. [address] [place] [address] [facility] Referral ID Status Reason Start Date Expiration Date Visits Re quested Visits Authorized [id number] Closed 02/01/2023 02/01/2024 1 1 Reason for Visit * Outpatient (Routine) - Closed Specialty Diagnoses / Procedures Referred By Jessica patel Referred To Contact Diagnoses Malignant Neoplasm Of Thyroid Papillary (HCC) Procedures BMD Bone Density Spine Hips Jemal Murrell M.B.B.S., M.D. [address] [place] [address] [facility] Referral ID Status Reason Start Date Expiration Date Visits Re quested Visits Authorized [id number] Closed 02/01/2023 02/01/2024 1 1 Encounter Details Date Type Department Care Team (Latest Contact Info) Description 12/06/2023 8:59 AM CDT - 12/06/2023 9:32 AM CDT Hospital Encounter Department of Radiology, [facility], in [place], [place] [address] [place] [address] Jemal Murrell M.B.B.S., M.D. [address] [place] [address] Malignant Neoplasm Of Thyroid Papillary (HCC) Discharge Disposition: Home or Self Care Social History Tobacco Use Types Packs/Day Years Used Date Smoking Tobacco: Former Cigarettes 0 01/12/1955 - 01/16/1985 Smokeless Tobacco: Never Alcohol Use Standard Drinks/Week Comments Yes 10 (1 standard drink = 0.6 oz pu re alcohol) occassional [facility] Utilities Answer Date Recorded In the past 12 months has e [employer], gas, oil, or water [employer] threatened to shut off services in your [...] Answer Date Recorded PHQ-2 Score 5 01/25/2019 [employer] [facility] - Occupational Stress Questionnaire Answer [...] 1 tablet by mouth daily. Centrum (per continuous improvement engineer) 10/09/2017 omeprazole (PriLOSEC) [address] capsuleIndications:Ga [...] Appointment Department of Laboratory Medicine and Pathology, [facility] in [place], [place] [address] [place] [phone] Zara Garvey, ROSAURA, C.N.P., D.N.P. [address] [place] [phone] documented as of this encounter Procedures Procedure [...] Bone Mineral Density (BMD) analysis performed on [employer] with serial number [id number]. ? FINDINGS: Left Hip: Femur Neck: BMD [...] including images and graphs, is available in [employer]. In the absence of other causes of [...] Bone Mineral Density (BMD) analysis performed on [employer] with serialnumber [id number]. FINDINGS: Left Hip: Femur Neck: BMD = [...] Jemal Garcia, M.D. I MG DXA PROCEDURES documented in this encounter Visit Diagnoses Diagnosis Malignant Neoplasm Of Thyroid Papillary (HCC) documented in this encounter Additional Health Concerns Assessment Noted Time PHQ-9 Depression Total Score: 5 03/06/20 18 6:00 PM CDT documented as of this encounter Care Teams Plastics Design Engineer Relationship Specialty Start Date End Date Elsewhere, Pcp PCP - General Internal Medicine 09/13/22 documented as of this encounter
--- OUTSIDE RECORDS SUMMARY | 2024-02-09 10:09 | XMS_ITS | Encounter Summary ---
Author Organization [facility] Address [address] [place] [address] Care Team Providers Care Compensation Director Name Role Phone Elsewhere, Pcp Primary Care Provider Unavailabl e Reason for Referral * Outpatient (Routine) - Closed Specialty Diagnoses / Procedures Referred By Jessica patel Referred To Contact Diagnoses Malignant Neoplasm Of Thyroid Papillary (HCC) Procedures US Head Neck Soft Tissue Jemal Murrell M.B.B.S., M.D. [address] [place] [phone] [facility] Referral ID Status Reason Start Date Expiration Date Visits Re quested Visits Authorized [id number] Closed 02/01/2023 02/01/2024 1 1 Reason for Visit * Outpatient (Routine) - Closed Specialty Diagnoses / Procedures Referred By Jessica patel Referred To Contact Diagnoses Malignant Neoplasm Of Thyroid Papillary (HCC) Procedures US Head Neck Soft Tissue Jemal Murrell M.B.B.S., M.D. [address] [place] [address] [facility] Referral ID Status Reason Start Date Expiration Date Visits Re quested Visits Authorized [id number] Closed 02/01/2023 02/01/2024 1 1 Encounter Details Date Type Department Care Team (Latest Contact Info) Description 12/06/2023 8:00 AM CDT - 12/06/2023 8:58 AM CDT Hospital Encounter Department of Radiology, [facility], in [place], [place] [address] [place] [address] Jemal Murrell M.B.B.S., M.D. [address] [place] [address] Malignant Neoplasm Of Thyroid Papillary (HCC) Discharge Disposition: Home or Self Care Social History Tobacco Use Types Packs/Day Years Used Date Smoking Tobacco: Former Cigarettes 0 01/12/1955 - 01/16/1985 Smokeless Tobacco: Never Alcohol Use Standard Drinks/Week Comments Yes 10 (1 standard drink = 0.6 oz pu re alcohol) occassional [facility] Utilities Answer Date Recorded In the past 12 months has e [employer], gas, oil, or water [employer] threatened to shut off services in your [...] week 08/07/2022 How often do you attend [facility] or yarsani services? 1 to 4 times per year 08/07/2022 Do you belong to any clubs o r organizations such as restorationism groups, unions, fraternal or athletic groups, or [...] Answer Date Recorded PHQ-2 Score 5 01/25/2019 [facility] - Occupational Stress Questionnaire Answer Date [...] 1 tablet by mouth daily. Centrum (per library services dean) 10/09/2017 omeprazole (PriLOSEC) 20 mg capsuleIndications:Ga stroesophageal [...] Appointment Department of Laboratory Medicine and Pathology, [facility] in [place], [place] [address] [place] [phone] Zara Garvey, ROSAURA, C.N.P., D.N.P. [address] [place] [phone] documented as of this encounter Procedures Procedure [...] Jemal Garcia, Alek I MG US PROCEDURES documented in this encounter Visit Diagnoses Diagnosis Malignant Neoplasm Of Thyroid Papillary (HCC) documented in this encounter Additional Health Concerns Assessment Noted Time PHQ-9 Depression Total Score: 5 03/06/20 18 6:00 PM CDT documented as of this encounter Care Teams Compensation Director Relationship Specialty Start Date End Date Elsewhere, Pcp PCP - General Internal Medicine 09/13/22 documented as of this encounter
--- OUTSIDE RECORDS SUMMARY | 2024-02-09 10:09 | XMS_ITS | Encounter Summary ---
Author Organization [facility] Address [address] [place] [address] Care Team Providers Care Switching Clerk Name Role Phone Elsewhere, Pcp Primary Care Provider Unavailabl e Reason for Visit * Reason Onset Date Comments Pre-visit Intake 12/04/2023 Encounter Details Date Type Department Care Team (Latest Contact Info) Description 12/04/2023 10:30 AM CDT Clinical Communication Virtual Review in [place], [place] 200 [place] [address] Pre-visit Intake Social History Tobacco Use Types Packs/Day Years Used Date Smoking Tobacco: Former Cigarettes 0 01/12/1955 - 01/16/1985 Smokeless Tobacco: Never Tobacco Cessation:Counseling Given: Not Answered Alcohol Use Standard Drinks/Week Comments Yes 10 (1 standard drink = 0.6 oz pu re alcohol) occassional [facility] Utilities Answer Date Recorded In the past 12 months has [facility] [employer], gas, oil, or water [employer] threatened to shut off services in your [...] How often do you attend chur or mandaeism services? 1 to 4 times per year 08/07/2022 Do you belong to any clubs o r organizations such as yazdanism groups, unions, fraternal or athletic groups, or [...] 01/25/2019 [facility] of Occupat ionnv Health - Occupational Stress Questionnaire Answer Date [...] your living situation today? I have a [facility] place to live 12/01/2023 Education Answer [...] Laboratory Medicine and Pathology, [facility] in [place], [place] [address] [place] [address] Zara Garvey APRN, C.N.P., D.N.P. [address] [place] [address] documented as of this encounter Visit Diagnoses Not on filedocumented in this encounter Additional Health Concerns Assessment Noted Time PHQ-9 Depression Total Score: 5 03/06/20 18 6:00 PM CDT documented as of this encounter Care Teams Switching Clerk Relationship Specialty Start Date End Date Elsewhere, Pcp PCP - General Internal Medicine 09/13/22 documented as of this encounter
== END 2024-02-07 08:45 | disposition home or self-care (01) ==
LOC: NFLDREF 02-09 10:06
PROVIDERS: PCP Family Medicine; Referring Provider Family Medicine
DX: Z00.00 Encounter for general adult medical examination without abnormal findings (principal)
CPT/HCPCS: 99001

== ENCOUNTER 2024-03-18 12:52 | Outpatient (CLI) | payer MEDICARE, SELFPAY ==
--- OUTSIDE RECORDS SUMMARY | 2024-03-19 13:25 | XMS_ITS | Clinical Summary ---
Author Organization [facility] Address [address] [place] [address] Care Team Providers Care Reel Assembler Name Role Phone Elsewhere, Pcp Primary Care Provider Unavailabl e Source Comments Patient records contain information from all sites at [facility]. For routine questions regarding patient records, call [phone] during business hours, M-F 8:00 AM - 5:00 PM Central Time. Record requests for emergency care only can be directed to [phone] at any time.[facility] Allergies Active Allergy Reactions Criticality Noted [...] 1 tablet by mouth daily. 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 Pre-visit Testing Orders 02/27/2024 Refill Division of Endocrinology in [place], [place] [address] [place] [phone] Raven Holloway M.D. Med Refill 02/08/2024 Clinical Communication Division of Endocrinology in [place], [place] [address] [place] [phone] Zara Garvey APRN, C.N.P., D.N.P. Thyroid Message Confirmation 02/08/2024 Orders Only Division of Endocrinology in [place], [place] [address] [place] [phone] Zara Garvey APRN C.N.P., D.N.P. 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 Encounter For Checking And Testing Of Cardiac Pacemaker Pulse Generator Battery Discharge Disposition: Home or Self Care 12/19/2023 Clinical Communication Division of Endocrinology in [place], [place] [address] [place] [address] Zara Garvey APRN, C.N.P., D.N.P. medical question from Last 3 Months Immunizations Name Administration [...] oz pu re alcohol) occassional [facility] Utilities Answer Date Recorded In the past 12 months has [facility] [employer], gas, oil, or water [employer] threatened to shut off services in your [...] often do you attend chur ch or congregational services? 1 to 4 times per year [...] 5 01/25/2019 [facility] Answer Date [...] your living situation today? I have a [facility] place to live 12/01/2023 Education Answer [...] Comments Blood Pressure 138/86 09/25/2023 3:03 PM PATTERN CHANGER AND REPAIRER Pulse 73 09/25/2023 3:03 PM PATTERN CHANGER AND REPAIRER Temperature 36.6 ??C (97.9 ??F) 04/10/2023 10:00 AM C DT Respiratory Rate 16 04/10/2023 6:41 AM CDT Oxygen Saturation 94% 04/10/2023 10:10 AM CDT Inhaled Oxygen Concentration - - Weight 72 kg (158 lb 12.8 oz) 09/25/2023 3:03 PM PATTERN CHANGER AND REPAIRER Height 170.1 cm (5' 6.97) 09/25/2023 3:03 PM CS T Body Mass Index 24.89 09/25/2023 3:03 PM PATTERN CHANGER AND REPAIRER Plan of Treatment Upcoming Encounters Date Type Department Care Team (Latest Contact Info) Description 03/27/2024 9:10 AM CDT Appointment Department of Laboratory Medicine and Pathology, [facility] in [place], [place] [address] [place] [phone] Zara Garvey APRN, Jass.N.P., D.N.P. [address] [place] [phone] 05/03/2024 9:00 AM CDT Appointment Department of Radiology in [address] [phone] Devi Stafford APRN, C.N.Yvrose, M.S.N. [address] [place] [phone] Discharge Disposition: Home or Self Care 05/28/2024 10:00 AM CDT Clinical Communication Virtual Review in [place], [place] [address] [place] [phone] 06/04/2024 8:20 AM CDT Appointment Department of Laboratory Medicine and Pathology, [facility] in [place], [place] [address] [place] [phone] Devi Stafford APRN, C.NTato, M.S.N. [address] [place] [phone] 06/04/2024 8:30 AM CDT Ancillary Procedure Department of Cardiovascular Medicine in [place], [place] [address] [place] [phone] Devi Stafford APRN, C.N.P., M.S.N. [address] [place] [phone] 06/04/2024 9:30 AM CDT Appointment Department of Radiology, [facility] in [place], [place] [address] [place] [phone] Devi Stafford APRN, C.N.Marilee., M.S.N. [address] [place] [phone] 06/04/2024 12:40 PM CDT Appointment Department of Cardiovascular Diseases in [place], [place] [address] [place] [phone] Devi Stafford APRN, C.N.P., M.S.N. [address] [place] [phone] Discharge Disposition: Home or Self Care 06/04/2024 2:15 PM CDT Office Visit Department of Cardiovascular Medicine in [place], [place] [address] [place] [phone] Devi Stafford APRN, C.N.P., M.S.N. [address] [place] [phone] Health Maintenance Due Date Last Done Comments COVID-19 Vaccine (2022-09 4 season) 2023 12/27/2021, 06/09/2021, 10/22/2020, Additional history exists Depression Screening (Annual PHQ-2) 08/14/2023 Fall Risk Screen (Annual) 08/14/2023 Creatinine Level (Kidney Fun ction Test) 05/02/2024 05/02/2023, 05/03/2022, 07/21/2021, Additional history exists Potassium Level 05/02/2024 05/02/2023, 04/15, 07/21/2021, Additional history exists Sodium Level 05/02/2024 05/02/2023, 04/15, 07/21/2021, Additional history exists Influenza Vaccine (#1) 2024 , 07/04/2022, 05/14/2021, Additional history exists Office Visit for Blood Press ure Check / Re-check 09/25/2024 09/25/2023 Thyroid Stimulating Hormone (TSH) test for thyroid function 02/06/2025 02/07/2024, 12/06/2023, 02/01/2023, Additional history exists DTaP,Tdap,and Td Vaccines (3 - Td or Tdap) 02/08/2032 02/07/2022, 06/20/2012 Pneumococcal vaccine (65+ years) Completed 09/16/19 15, 06/27/2008 Zoster Vaccines Completed 05/13/2019, 01/21/2019 Medical Devices Implanted Type Area Insurance Special Agent Device Identifier Shelf Expiration Date Model / Serial / Lot Lead [id number] Business Development Professional Attain Ability - Darling [id number] Implanted:Qty: 1 on 10/09/2017 Cardiac Lead Coronary Medtronic / [id number] / Description:Device Manufactu rer - Medtronic CamioCam. Body Location - Other. Coronary Sinus. Device Status Text - CARD [id number]. Conversions - Default Historical Implant Device Implanted:03/07 (Quantity not on file) Cardiac Valve Prosthesis Aorta Description:Device Status Te xt - CardValve. pig valve placed on 11-16-2016. Mesh Or Patch-08/14/2022 Implanted:08/14 (Quantity not on file) Mesh or Patch Stomach Description:Hernia Mesh 2 Dental Bridges Misc Other Mouth Description:Upper and Lower Dental Bridge. Pacer Preeti Xt Sr Mri - Darling [id number] Implanted:Qty: 1 on 10/09/2017 Pacemaker Other/Legacy - See Implant Description Medtronic / [id number] / Description:Device Manufactu rer [place] MedMindie. Body Location - Other. Left. Device Status Text - [id number]. Vascular Other-08/14/2016 Implanted:08/14 (Quantity not on file) Vascular Other Right: Arm Description:A/V fistula Procedures Procedure Name Priority Date/Time Associated Diagnosis Comments GA THYROGLOBULIN SERUM Routine 8:40 AM CDT T4 (THYROXINE), FREE, S Routine 02/07/2024 8:40 AM CDT Malignant Neoplasm Of Thyroid Papillary (HCC) THYROID-STIMULATING HORMONE-SENSITIVE (S-TSH) Routine 02/07/2024 8:40 AM CDT Malignant Neoplasm Of Thyroid Papillary (HCC) THYROGLOBULIN, TM, REFLEX TO LC-MS/MS OR IMMUNOASSAY, S Routine 02/07/2024 8:40 AM CDT Malignant Neoplasm Of Thyroid Papillary (HCC) PACER REMOTE FOLLOW UP Routine 12:54 PM CDT Encounter For Checking And [...] IA 2.8(H) ng/mL 02/08/2024 4:08 PM CDT [facility] Comment: ----REFERENCE VALUE---- Athyrotic <0.1 Intact Thyroid <=33 Thyroglobulin Interpretation SEE COMMENT 02/08/2024 4:08 PM CDT [facility] Comment: Thyroglobulin (Tg) levels must be [...] testing methods are immunoenzymatic assays manufactured by [employer] and performed on the ShopnationI 800. Values obtained from different assay methods or kits may be different and cannot be used interchangeably. The results cannot be interpreted as absolute evidence for the presence or absence of malignant disease. Blood 02/07/2024 8:40 AM CDT 02/08/2024 1:24 PM CDT Narrative Resulting Agency Comment Mailed In Specimen Jass Sky APRN.N.Marilee., D.N.P. LAB BLOOD NON ADD-ON Performing Organization Address [facility] Co de Phone Number [facility] [address] [place] [address] [facility] [address] [place] [address] * Thyroglobulin, Tumor Marker Reflex to LC-MS/MS or Immunoassay (02/07/2024 8:40 AM CDT) Thyroglobulin Antibody, S <1.8 <1.8 IU/mL 02/08/2024 2:39 PM CDT [facility] Comment: Thyroglobulin Antibody < 1.8 IU/mL. Thyroglobulin performed by Immunoassay to follow. Blood (Blood, Venous) 02/07/2024 8:40 AM CDT 02/08/2024 1:24 PM CDT Narrative Resulting Agency Comment Mailed In Specimen Jass Sky APRN.N.PDavis, D.N.P. LAB BLOOD NON ADD-ON Performing Organization Address [facility] de Phone Number [facility] [address] [place] [address] [facility] [address] [place] [address] * (ABNORMAL) S-TSH (Thyroid-Stimulating Hormone - Sensitive) (02/07/2024 8:40 AM CDT) Pathologist [facility] TSH, Sensitive 0.01(L) 0.3 - 4.2 mIU/L 02/08/2024 12:14 PM CDT DTL Blood (Blood, Venous) 02/07/2024 8:40 AM CDT 02/08/2024 9:06 AM CDT Narrative Resulting Agency Comment Mailed In Specimen Jass Sky APRN.N.P., D.N.P. LAB BLOOD ADD-ON Performing Organization Address City/[facility]/ZIP Co de Phone Number [facility] [address] [place] [address] * (ABNORMAL) T4 (Thyroxine), Free (02/07/2024 8:40 AM CDT) T4 (Thyroxine), Free, S 3.1(H) 0.9 - 1.7 ng/dL 02/08/2024 12:14 PM CDT DTL Blood (Blood, Venous) 02/07/2024 8:40 AM CDT 02/08/2024 9:06 AM CDT Narrative Resulting Agency Comment Mailed In Specimen Jass Sky APRN.N.P., D.N.P. LAB BLOOD ADD-ON Performing Organization Address City/[facility]/ZIP Co de Phone Number [facility] [address] [place] [address] * PACER REMOTE FOLLOW UP (12/22/2023 12:54 PM CDT) Date Time Interrogation Session [id number] [facility] Implantable Pulse Generator Insurance Special Agent Medtronic [facility] Implantable Pulse Generator Model [id number] Preeti XT SR MRI [facility] Implantable Pulse Generator Serial Number [id number] [facility] Type Interrogation Session Remote [facility] Clinic Name [facility] [place][note 2] LAB SYSTEM Implantable Pulse Generator Type Pacemaker [facility] Implantable Pulse Generator Implant Date [id number] [facility] Implantable Lead Insurance Special Agent Medtronic [facility] Implantable Lead Model 4196 Attain Ability MRI SureScan [facility] Implantable Lead Serial Number [id number] [facility] Implantable Lead Implant Date [id number] [facility] Implantable Lead Polarity Type Bipolar Lead [facility] Implantable Lead Location Detail 1 UNKNOWN [facility] Implantable Lead Special Function Lead length: 88 cm [facility] Implantable Lead Location Left Ventricle [facility] Cholo Setting Mode (NBG Code) VVIR [facility] Cholo Setting Lower Rate Limit [...] Channel Setting Sensing Sensitivity 0.9 mV [facility] Lead Channel Setting Pacing Polarity Bipolar [facility] Lead Channel Setting Pacing Anode Location Right Ventricle [facility] Lead Channel Setting Pacing Anode Terminal Ring [facility] Lead Channel Setting Sensing Cathode Location Right Ventricle [facility] Lead Channel Setting Sensing Cathode Terminal Tip [facility] Lead Channel Setting Pacing Pulse Width 0.4 ms [facility] Lead Channel Setting Pacing Amplitude 3 V [facility] Lead Channel Setting Pacing Capture Mode Adaptive [facility] Zone Setting Type Category VF [facility] Zone Setting Type Category [place] [facility] Zone Setting Type Category [place] [facility] Zone Setting Type Category [place] [facility] Zone Setting Detection Interval 360 ms [facility] Zone Setting Type Category ATRIAL_FIBRILLATI [...] LAB SYSTEM Battery Date Time of Measurements [id number] [facility] Battery SAND MIXER MACHINE Trigger 2.625 [facility] Battery Remaining Longevity 88 mo [facility] Battery Voltage 2.99 V [facility] Cholo Statistic Date Time Start [id number] [facility] Cholo Statistic Date Time End [id number] [facility] Cholo Statistic RV Percent [...] SYSTEM Episode Statistic Recent Date Time Start [id number] [facility] Episode Statistic Recent Date Time End [id number] [facility] Episode Statistic Recent Date Time Start [id number] [facility] Episode Statistic Recent Date Time End [facility] Episode Statistic Recent Date Time Start [id number] [facility] Episode Statistic Recent Date [...] SYSTEM Episode Statistic Total Date Time Start [id number] [facility] Episode Statistic Total Date Time End [facility] Episode Statistic Total Date Time Start [facility] Episode Statistic Total Date Time End [facility] Anatomical Region Laterality Modality Other 12/21/2023 11:4 3 PM CDT Narrative 12/26/2023 6:14 PM CDT PURPOSE OF VISIT: ??Routine remote transmission. PRESENTING EGM: ??HEARING SCREEN COORDINATOR at 60 bpm VENTRICULAR ARRHYTHMIAS: ?No new [...] Ph.D. CV IMPLANTABLE C ARDIAC DEVICE * Sodium (05/02/2023 9:28 AM CDT) Sodium, S 142 135 - 145 mmol/L 05/02/2023 10:49 AM CDT DTL Blood (Blood, Venous) 05/02/2023 9:28 AM CDT 05/02/2023 10:09 AM CDT Devi Stafford APRN, C.N.P., M.S.N. LAB BLOOD ADD-ON Performing Organization Address City/[facility]/ZIP Co de Phone Number [facility] [address] [place], [place] [phone] [place] [address] 200 [place] [address] * Potassium (05/02/2023 9:28 AM CDT) Potassium, S 4.7 3.6 - 5.2 mmol/L 05/02/2023 10:49 AM CDT DTL Blood (Blood, Venous) 05/02/2023 9:28 AM CDT 05/02/2023 10:09 AM CDT Devi Stafford APRN, C.N.P., M.S.N. LAB BLOOD ADD-ON Performing Organization Address City/[facility] Co de Phone Number [facility] [address] [place], [place] [phone] [place] [address] 200 [place] [address] * (ABNORMAL) Creatinine with Estimated GFR (05/02/2023 [...] ADD-ON Performing Organization Address City/[facility]/ZIP Co de Phone Number [facility] [address] [place], [place] [phone] [place] [address] [facility] [place] [address] [place] [address] from Last 3 Months or Most Recently Relevant to Health Maintenance Advance Directives For more information, please contact: [phone] Documents on File Type Date Recorded Patient Template Clerk Expl anation Advance Directives 2002 12:00 AM [...] Answer Comments Full Code: Discussed Care Teams Reel Assembler Relationship Specialty Start Date End Date Elsewhere, Pcp PCP - General Internal Medicine 09/13/22
--- OUTSIDE RECORDS SUMMARY | 2024-03-19 13:25 | XMS_ITS ---
Author Organization [facility] Address [address] [place] [address] Care Team Providers Care Puncher Name Role Phone Elsewhere, Pcp Primary Care [...] Papillary 02/10/20 17 Anemia Of Renal Failure Barrel Washer nirmala Kidney Disease On Erythropoietin 01/30/2017 Flutter Atrial 01/30/2017 Current Oncology Plans No current plan information found. Past Plans Radiation Treatments * No radiation treatments are documented for this patient in [facility]. Treatments may have been administered in [...]
--- OUTSIDE RECORDS SUMMARY | 2024-03-19 13:25 | XMS_ITS | Encounter Summary ---
Author Organization [facility] Address [address] [place] [address] Care Team Providers Care Front End Web Designer Name Role Phone Elsewhere, Pcp Primary Care Provider Unavailabl e Encounter Details Date Type Department Care Team (Late st Contact Info) Description 02/08/2024 Orders Only Division of Endocrinology in [place], [place] [address] [place] [phone] Zara Garvey, ROSAURA, C.N.P., D.N.P. 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 I have a [facility] place to live 12/01/2023 Education Answer [...] Appointment Department of Laboratory Medicine and Pathology, [facility], in [place], [place] 200 [place] [phone] Zara Garvey, ROSAURA, C.N.P., D.N.P. 200 [place] [address] 05/03/2024 9:00 AM CDT Appointment Department of Radiology in [address] [phone] Devi Stafford APRN, C.NTato, M.S.N. [address] [place] [phone] Discharge Disposition: Home or Self Care 05/28/2024 10:00 AM CDT Clinical Communication Virtual Review in [place], [place] 200 [place] [phone] 06/04/2024 8:20 AM CDT Appointment Department of Laboratory Medicine and Pathology, [facility] in [place], [place] [address] [place] [phone] Devi Stafford APRN, C.NTato, M.S.N. [address] [place] [phone] 06/04/2024 8:30 AM CDT Ancillary Procedure Department of Cardiovascular Medicine in [place], [place] [address] [place] [phone] Devi Stafford APRN, C.N.Marilee., M.S.N. [address] [place] [phone] 06/04/2024 9:30 AM CDT Appointment Department of Radiology, [facility] in [place], [place] [address] [place] [phone] Devi Stafford APRN, C.NDavisP., M.S.N. [address] [place] [phone] 06/04/2024 12:40 PM CDT Appointment Department of Cardiovascular Diseases in [place], [place] [address] [place] [phone] Devi Stafford APRN, C.N.Marilee., M.S.N. [address] [place] [phone] Discharge Disposition: Home or Self Care 06/04/2024 2:15 PM CDT Office Visit Department of Cardiovascular Medicine in [place], [place] [address] [place] [phone] Devi Stafford APRN C.NTripp., M.S.N. [address] [place] [address] Scheduled Orders Name Type Priority Associated Diagnoses [...] documented as of this encounter Care Teams Front End Web Designer Relationship Specialty Start Date End Date Elsewhere, Pcp PCP - General Internal Medicine 09/13/22 documented as of this encounter
--- OUTSIDE RECORDS SUMMARY | 2024-03-19 13:25 | XMS_ITS | Encounter Summary ---
Author Organization [facility] Address [address] [place] [address] Care Team Providers Care Typing Section Chief Name Role Phone Elsewhere, Pcp Primary Care Provider Unavailabl e Reason for Visit * Reason Comments Med Refill Encounter Details Date Type Department Care Team ([facility] st Contact Info) Description 02/27/2024 Refill Division of Endocrinology in [place], [place] [address] [place] [phone] Raven Holloway M.D. [address] [place] [address] Med Refill Social History Tobacco Use Types Packs/Day Years Used Date Smoking Tobacco: Former Cigarettes 0 01/12/1955 - 01/16/1985 Smokeless Tobacco: Never Alcohol Use Standard Drinks/Week Comments Yes 10 (1 standard drink = 0.6 oz pu re alcohol) occassional [facility] Utilities Answer Date Recorded In the past 12 months has [facility] [employer] [facility], oil, or water [employer] threatened to shut off services in your [...] How often do you attend chur or gnosticism services? 1 to 4 times [...] Recorded PHQ-2 Score 5 01/25/2019 [facility] [place] of Occupat ional Health - Occupational Stress [...] your living situation today? I [facility] place [facility] live 12/01/2023 Education Answer [...] Appointment Department of Laboratory Medicine and Pathology, [facility] in [place], [place] [address] [place] [address] Zara Garvey, ROSAURA, C.N.P., D.N.P. [address] [place] [address] 05/03/2024 9:00 AM CDT Appointment Department of Radiology in [address] [phone] Devi Stafford APRN, C.N.P., M.S.N. [address] [place] [phone] Discharge Disposition: Home or Self Care 05/28/2024 10:00 AM CDT Clinical Communication Virtual Review in [place], [place] 200 [place] [phone] 06/04/2024 8:20 AM CDT Appointment Department of Laboratory Medicine and Pathology, [facility] in [place], [place] [address] [place] [phone] Devi Stafford APRN, C.N.P., M.S.N. [address] [place] [phone] 06/04/2024 8:30 AM CDT Ancillary Procedure Department of Cardiovascular Medicine in [place], [place] [address] [place] [phone] Devi Stafford APRN, C.N.P., M.S.N. [address] [place] [phone] 06/04/2024 9:30 AM CDT Appointment Department of Radiology, [facility] in [place], [place] [address] [place] [phone] Devi Stafford APRN, C.NTato, M.S.N. [address] [place] [phone] 06/04/2024 12:40 PM CDT Appointment Department of Cardiovascular Diseases in [place], [place] [address] [place] [phone] Devi Stafford APRN, C.NTato, M.S.N. [address] [place] [phone] Discharge Disposition: Home or Self Care 06/04/2024 2:15 PM CDT Office Visit Department of Cardiovascular Medicine in [place], [place] [address] [place] [address] Devi Stafford APRN, C.NDavisP., M.S.N. [address] [place] [address] documented as of this encounter Visit Diagnoses Not on filedocumented in this encounter Additional Health Concerns Assessment Noted Time PHQ-9 Depression Total Score: 5 03/06/20 18 6:00 PM CDT documented as of this encounter Care Teams Typing Section Chief Relationship Specialty Start Date End Date Elsewhere, Pcp PCP - General Internal Medicine 09/13/22 documented as of this encounter
--- OUTSIDE RECORDS SUMMARY | 2024-03-19 13:25 | XMS_ITS | Referral Summary ---
Author Organization [facility] Address [address] [place] [address] Care Team Providers Care Tile Power Shear Operator Name Role Phone Elsewhere, Pcp Primary Care Provider Unavailabl e Source Comments Patient records contain information from all sites at [facility]. For routine questions regarding patient records, call [phone] during business hours, M-F 8:00 AM - 5:00 PM Central Time. Record requests for emergency care only can be directed to [phone] at any time.[facility] Encounters Date Type Department Care Team Description 03/12/2024 Clinical Communication Department of Cardiovascular Medicine in [place], [place] [address] [place] [phone] Devi Stafford APRN, C.N.P., M.S.N. Pre-visit Testing Orders 02/27/2024 Refill Division of Endocrinology in [place], [place] [address] [place] [phone] Raven Holloway M.D. Med Refill 02/08/2024 Clinical Communication Division of Endocrinology in [place], [place] [address] [place] [phone] Zara Garvey APRN, C.N.P., D.N.P. Thyroid Message Confirmation 02/08/2024 Orders Only Division of Endocrinology in [place], [place] [address] [place] [phone] Zara Garvey APRN, C.N.P., D.N.P. 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 Encounter For Checking And Testing Of Cardiac Pacemaker Pulse Generator Battery Discharge Disposition: Home or Self Care 12/19/2023 Clinical Communication Division of Endocrinology in [place], [place] [address] [place] [address] Zara Garvey APRN, C.N.P., D.N.P. medical question from Last 3 Months Allergies Active Allergy [...] 1 tablet by mouth daily. 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 1 to 4 times [...] Date Recorded PHQ-2 Score 5 01/25/2019 [facility] of Occupat ional [facility] - Occupational Stress Questionnaire Answer [...] your living situation today? I have a [facility] place to live 12/01/2023 Education Answer Date [...] Comments Blood Pressure 138/86 09/25/2023 3:03 PM [employer] Pulse 73 09/25/2023 3:03 PM [employer] Temperature 36.6 ??C (97.9 ??F) 04/10/2023 10:00 AM C DT Respiratory Rate 16 04/10/2023 6:41 AM CDT Oxygen Saturation 94% 04/10/2023 10:10 AM CDT Inhaled Oxygen Concentration - - Weight 72 kg (158 lb 12.8 oz) 09/25/2023 3:03 PM [employer] Height 170.1 cm (5' 6.97) 09/25/2023 3:03 PM CS T Body Mass Index 24.89 09/25/2023 3:03 PM [employer] Plan of Treatment Upcoming Encounters Date Type Department Care Team (Latest Contact Info) Description 03/27/2024 9:10 AM CDT Appointment Department of Laboratory Medicine and Pathology, [facility], in [place], [place] 200 [place] [address] Zara Garvey APRN, C.N.P., D.N.P. [address] [place] [phone] 05/03/2024 9:00 AM CDT Appointment Department of Radiology in [address] [phone] Devi Stafford APRN, C.N.Marilee., M.S.N. [address] [place] [phone] Discharge Disposition: Home or Self Care 05/28/2024 10:00 AM CDT Clinical Communication Virtual Review in [place], [place] 200 [place] [address] 06/04/2024 8:20 AM CDT Appointment Department of Laboratory Medicine and Pathology, [facility] in [place], [place] [address] [place] [phone] Devi Stafford APRN, C.N.Marilee., M.S.N. [address] [place] [phone] 06/04/2024 8:30 AM CDT Ancillary Procedure Department of Cardiovascular Medicine in [place], [place] [address] [place] [phone] Devi Stafford APRN, C.N.P., M.S.N. [address] [place] [phone] 06/04/2024 9:30 AM CDT Appointment Department of Radiology, [facility], in [place], [place] [address] [place] [phone] Devi Stafford APRN, C.N.P., M.S.N. [address] [place] [phone] 06/04/2024 12:40 PM CDT Appointment Department of Cardiovascular Diseases in [place], [place] [address] [place] [address] Devi Stafford APRN, C.N.P., M.S.N. 200 [place] [address] Discharge Disposition: Home or Self Care 06/04/2024 2:15 PM CDT Office Visit Department of Cardiovascular Medicine in [place], [place] [address] [place] [address] Devi Stafford APRN, C.N.P., M.S.N. 200 [place] [phone] Medical Devices Implanted Type Area Handy Man Device Identifier Shelf Expiration Date Model / Serial / Lot Lead [id number] Aircraft Inspection Record Clerk Attain Ability - Darling [id number] Implanted:Qty: 1 on 10/09/2017 Cardiac Lead Coronary Medtronic / [id number] / Description:Device Manufactu rer - RecordSetter. Body Location - Other. Coronary Sinus. Device Status Text - CARD LEAD-[id number]. Conversions - Default Historical Implant Device Implanted:03/07 (Quantity not on file) Cardiac Valve Prosthesis Aorta Description:Device Status Te xt - CardValve. pig valve placed on 11-16-2016. Mesh Or Patch-08/14/2022 Implanted:08/14 (Quantity not on file) Mesh or Patch Stomach Description:Hernia Mesh 2 Dental Bridges Misc Other Mouth Description:Upper and Lower Dental Bridge. Pacer Beverly Xt Sr Mri - Darling [id number] Implanted:Qty: 1 on 10/09/2017 Pacemaker Other/Legacy - See Implant Description Medtronic / [id number] 1S / Description:Device Manufactu rer - RecordSetter. Body Location - Other. Left. Device Status Text - PACEMAKER-[id number]. Vascular Other-08/14/2016 Implanted:08/14 (Quantity not on file) Vascular Other Right: Arm Description:A/V fistula Procedures Procedure Name Priority Date/Time Associated Diagnosis Comments MD THYROGLOBULIN SERUM Routine 4 8:40 AM CDT T4 (THYROXINE), FREE, S [...] IA 2.8(H) ng/mL 02/08/2024 4:08 PM CDT [facility] Comment: ----REFERENCE VALUE---- Athyrotic <0.1 Intact Thyroid <=33 Thyroglobulin Interpretation SEE COMMENT 02/08/2024 4:08 PM CDT [facility] Comment: Thyroglobulin (Tg) levels must be [...] testing methods are immunoenzymatic assays manufactured by [employer] and performed on the [employer]Beat DXI 800. Values obtained from different assay methods or kits may be different and cannot be used interchangeably. The results cannot be interpreted as absolute evidence for the presence or absence of malignant disease. Blood 02/07/2024 8:40 AM CDT 02/08/2024 1:24 PM CDT Narrative Resulting Agency Comment Mailed In Specimen Jass Sky APRN.N.P., D.N.P. LAB BLOOD NON ADD-ON Performing Organization Address City/[facility] Co de Phone Number [facility] [address] [place] [address] [facility] [address] [place] [address] * Thyroglobulin, Tumor Marker Reflex to LC-MS/MS or Immunoassay (02/07/2024 8:40 AM CDT) Thyroglobulin Antibody, S <1.8 <1.8 IU/mL 02/08/2024 2:39 PM CDT [facility] Comment: Thyroglobulin Antibody < 1.8 IU/mL. Thyroglobulin performed by Immunoassay to follow. Blood (Blood, Venous) 02/07/2024 8:40 AM CDT 02/08/2024 1:24 PM CDT Narrative Resulting Agency Comment Mailed In Specimen Zara Garvey APRN, Jass.N.P., D.N.P. LAB BLOOD NON ADD-ON Performing Organization Address City/[facility]/ZIP Co de Phone Number [facility] [address] [place] [address] [facility] [address] [place] [address] * (ABNORMAL) S-TSH (Thyroid-Stimulating Hormone - Sensitive) (02/07/2024 8:40 AM CDT) TSH, Sensitive 0.01(L) 0.3 - 4.2 mIU/L 02/08/2024 12:14 PM CDT DTL Blood (Blood, Venous) 02/07/2024 8:40 AM CDT 02/08/2024 9:06 AM CDT Narrative Resulting Agency Comment Mailed In Specimen Zara Garvey APRN, Jass.N.P., D.N.P. LAB BLOOD ADD-ON Performing Organization Address City/[facility]/ZIP Co de Phone Number [facility] [address] 200 [place] [address] * (ABNORMAL) T4 (Thyroxine), Free (02/07/2024 8:40 AM CDT) T4 (Thyroxine), Free, S 3.1(H) 0.9 - 1.7 ng/dL 02/08/2024 12:14 PM CDT DTL Blood (Blood, Venous) 02/07/2024 8:40 AM CDT 02/08/2024 9:06 AM CDT Narrative Resulting Agency Comment Mailed In Specimen Jass Sky APRN.N.P., D.N.P. LAB BLOOD ADD-ON Performing Organization Address City/[facility]/ZIP Co de Phone Number [facility] [address] [place] [address] * PACER REMOTE FOLLOW UP (12/22/2023 12:54 PM CDT) Date Time Interrogation Session [id number] [facility] Implantable Pulse Generator Handy Man Ready LAB [facility] Implantable Pulse Generator Model [id number] Preeti XT SR MRI [facility] Implantable Pulse Generator Serial Number [id number] [facility] Type Interrogation Session Remote [facility] Clinic Name [facility] Implantable Pulse Generator Type Pacemaker [facility] Implantable Pulse Generator Implant Date [id number] [facility] Implantable Lead Handy Man Medtronic [facility] Implantable Lead Model [id number] Attain Ability MRI SureScan [facility] Implantable Lead Serial Number [id number] [facility] Implantable Lead Implant Date [id number] [facility] Implantable Lead Polarity Type Bipolar Lead [facility] Implantable Lead Location Detail 1 UNKNOWN [facility] Implantable Lead Special Function Lead length: 88 cm [facility] Implantable Lead Location Left Ventricle [facility] Cholo Setting Mode (NBG Code) VVIR [facility] Cholo Setting Lower Rate Limit 60 {beats}/ min [facility] Cholo Setting Maximum Sensor Rate 130 {beats}/ min [facility] Lead Channel Setting Sensing Polarity Bipolar [facility] Lead Channel Setting Sensing Anode Location Right Ventricle [facility] Lead Channel Setting Sensing Anode Terminal Ring [facility] Lead Channel Setting Sensing Cathode Location Right Ventricle [facility] Lead Channel Setting Sensing Cathode Terminal Tip [facility] Lead Channel Setting Sensing Sensitivity 0.9 mV [facility] Lead Channel Setting Pacing Polarity Bipolar [facility] Lead Channel Setting Pacing Anode Location Right Ventricle [facility] Lead Channel Setting Pacing Anode Terminal Ring [facility] Lead Channel Setting Sensing Cathode Location Right Ventricle [facility] Lead Channel Setting Sensing Cathode Terminal Tip [facility] Lead Channel Setting Pacing Pulse Width 0.4 ms [facility] Lead Channel Setting Pacing Amplitude 3 V [facility] Lead Channel Setting Pacing Capture Mode Adaptive [facility] Zone Setting Type Category VF [facility] Zone Setting Type Category VT [facility] Zone Setting Type Category VT [facility] Zone Setting Type Category VT [facility] Zone Setting Detection Interval 360 ms [facility] Zone Setting Type Category ATRIAL_FIBRILLATI ON [facility] Zone Setting Type Category AT/AF [facility] Lead Channel Impedance Value 798 ohm [facility] Lead Channel Impedance Value 342 ohm [facility] Lead Channel Sensing Intrinsic Amplitude 15.75 mV [facility] Lead Channel Sensing Intrinsic Amplitude 15.75 mV [facility] Lead Channel Pacing Threshold Amplitude 1.375 V [facility] Lead Channel Pacing Threshold Pulse Width 0.4 ms [facility] Battery Date Time of Measurements [id number] [facility] Battery CLINICAL TRIAL COORDINATOR Trigger 2.625 [facility] Battery Remaining Longevity 88 mo [facility] Battery Voltage 2.99 V [facility] Cholo Statistic Date Time Start [id number] [facility] Cholo Statistic Date Time End [id number] [facility] Cholo Statistic RV Percent [...] SYSTEM Episode Statistic Recent Date Time Start [id number] [facility] Episode Statistic Recent Date [...] SYSTEM Episode Statistic Total Date Time Start [id number] [facility] Episode Statistic Total Date Time End [facility] Episode Statistic Total Date Time Start [id number] [facility] Episode Statistic Total Date Time End [facility] Episode Statistic Total Date Time Start [id number] [facility] Episode Statistic Total Date Time End [facility] Anatomical Region Laterality Modality Other 12/21/2023 11:4 3 PM CDT Narrative 12/26/2023 6:14 PM CDT PURPOSE OF VISIT: ??Routine remote transmission. PRESENTING EGM: ??INTERNET SALESPERSON at 60 bpm VENTRICULAR ARRHYTHMIAS: ?No new [...] M.S.N. LAB BLOOD ADD-ON Performing Organization Address City/[facility] Co de Phone Number [facility] [address] [place] [address] * Potassium (05/02/2023 9:28 AM CDT) Potassium, S 4.7 3.6 - 5.2 mmol/L 05/02/2023 10:49 AM CDT DT Blood (Blood, Venous) 05/02/2023 9:28 AM CDT 05/02/2023 10:09 AM CDT Devi Stafford APRN, C.N.P., M.S.N. LAB BLOOD ADD-ON Performing Organization Address City/[facility] Co de Phone Number [facility] 200 [place] [address], [facility] 200 [place] [address] * (ABNORMAL) Creatinine with Estimated GFR (05/02/2023 9:28 AM CDT) Creatinine 2.09(H) 0.74 - 1.35 mg/dL 05/02/2023 10:49 AM CDT DTL Estimated GFR (eGFR) 31(L) >=60 mL/min/BSA 05/02/2023 10:49 AM CDT DTL Comment: Estimated GFR calculated using the 2020 CKD_EPI creatinine equation. Blood (Blood, Venous) 05/02/2023 9:28 AM CDT 05/02/2023 10:09 AM CDT Devi Stafford APRN, C.N.P., M.S.N. LAB BLOOD ADD-ON [facility] [address] [place] [address], [place] DTL [facility] [place] [address] [place] [address] from Last 3 Months or Most Recently Relevant to Health Maintenance Advance Directives For more information, please contact: [phone] Documents on File Type Date Recorded Patient Ekg Tech Expl anation Advance Directives 2002 12:00 AM [...] Answer Comments Full Code: Discussed Care Teams Tile Power Shear Operator Relationship Specialty Start Date End Date Elsewhere, Pcp PCP - General Internal Medicine 09/13/22
--- OUTSIDE RECORDS SUMMARY | 2024-03-19 13:25 | XMS_ITS | Encounter Summary ---
Author Organization [facility] Address [address] [place] [address] Care Team Providers Care Bottle Capper Name Role Phone Elsewhere, Pcp Primary Care Provider Unavailabl e Reason for Visit * Reason Onset Date Comments Pre-visit Testing Orders 03/12/2024 Encounter Details Date Type Department Care Team (Latest Contact Info) Description 03/12/2024 Clinical Communication Department of Cardiovascular Medicine in [place], [place] [address] [place] [address] Devi Stafford APRN, C.N.P., M.S.N. [address] [place] [phone] Pre-visit Testing Orders Social History Tobacco Use Types Packs/Day Years Used Date Smoking Tobacco: Former Cigarettes 0 01/12/1955 - 01/16/1985 Smokeless Tobacco: Never Alcohol Use Standard Drinks/Week Comments Yes 10 (1 standard drink = 0.6 oz pu re alcohol) occassional [facility] Utilities Answer Date Recorded In the past 12 months has [facility] [employer], gas, oil, or water [employer] threatened to shut off services in your [...] Answer Date Recorded PHQ-2 Score 5 01/25/2019 [facility] of Occupat ionwa Health - Occupational Stress Questionnaire Answer Date [...] your living situation today? I have a [facility] place to live 12/01/2023 Education Answer [...] Appointment Department of Laboratory Medicine and Pathology, [facility], in [place], [place] 200 [place] [address] Zara Garvey APRN, C.N.P., D.N.P. 200 [place] [address] 05/03/2024 9:00 AM CDT Appointment Department of Radiology in [address] [phone] Devi Stafford APRN, C.N.P., M.S.N. [address] [place] [phone] Discharge Disposition: Home or Self Care 05/28/2024 10:00 AM CDT Clinical Communication Virtual Review in [place], [place] 200 [place] [address] 06/04/2024 8:20 AM CDT Appointment Department of Laboratory Medicine and Pathology, [facility] in [address] [phone] Devi Stafford APRN, C.N.P., M.S.N. [address] [place] [phone] 06/04/2024 8:30 AM CDT Ancillary Procedure Department of Cardiovascular Medicine in [place], [place] [address] [place] [phone] Devi Stafford APRN, C.N.P., M.S.N. [address] [place] [phone] 06/04/2024 9:30 AM CDT Appointment Department of Radiology, [facility] in [place], [place] [address] [place] [phone] Devi Stafford APRN, C.N.Marilee., M.S.N. [address] [place] [phone] 06/04/2024 12:40 PM CDT Appointment Department of Cardiovascular Diseases in [address] [phone] Devi Stafford APRN, C.N.P., M.S.N. [address] [place] [address] Discharge Disposition: Home or Self Care 06/04/2024 2:15 PM CDT Office Visit Department of Cardiovascular Medicine in [place], [place] [address] [place] [address] Devi Stafford APRN, C.N.P., M.S.N. [address] [place] [address] documented as of this encounter Visit Diagnoses Not on filedocumented in this encounter Additional Health Concerns Assessment Noted Time PHQ-9 Depression Total Score: 5 03/06/20 18 6:00 PM CDT documented as of this encounter Care Teams Bottle Capper Relationship Specialty Start Date End Date Elsewhere, Pcp PCP - General Internal Medicine 09/13/22 documented as of this encounter
--- OUTSIDE RECORDS SUMMARY | 2024-03-19 13:25 | XMS_ITS | Encounter Summary ---
Author Organization [facility] Address [address] [place] [address] Care Team Providers Care Industrial Staff Nurse Name Role Phone Elsewhere, Pcp Primary Care Provider Unavailabl e Reason for Visit * Reason Onset Date Comments Thyroid Message Confirmation 02/08/2024 Encounter Details Date Type Department Care Team (Latest Contact Info) Description 02/08/2024 Clinical Communication Division of Endocrinology in [place], [place] [address] [place] [address] Zara Garvey, ROSAURA, C.N.P., D.N.P. [address] [place] [phone] Thyroid Message Confirmation Social History Tobacco Use Types Packs/Day Years Used Date Smoking Tobacco: Former Cigarettes 0 01/12/1955 - 01/16/1985 Smokeless Tobacco: Never Alcohol Use Standard Drinks/Week Comments Yes 10 (1 standard drink = 0.6 oz pu re alcohol) occassional [facility] Utilities Answer Date Recorded In the past 12 months has [employer], gas, oil, or water [employer] threatened to shut off services in your [...] often do you attend chur ch or hinduism services? 1 to 4 times per year [...] Answer Date Recorded PHQ-2 Score 5 01/25/2019 [facility] of Occupat ionak Health - Occupational Stress Questionnaire Answer Date [...] your living situation today? I have a [facility] place to live 12/01/2023 Education Answer [...] Appointment Department of Laboratory Medicine and Pathology, [facility], in [place], [place] 200 [place] [phone] Zara Garvey, ROSAURA, C.N.P., D.N.P. [address] [place] [address] 05/03/2024 9:00 AM CDT Appointment Department of Radiology in [address] [phone] Devi Stafford APRN, C.N.P., M.S.N. [address] [place] [phone] Discharge Disposition: Home or Self Care 05/28/2024 10:00 AM CDT Clinical Communication Virtual Review in [place], [place] 200 [place] [address] 06/04/2024 8:20 AM CDT Appointment Department of Laboratory Medicine and Pathology, [facility] in [place], [place] [address] [place] [phone] Devi Stafford APRN, C.N.P., M.S.N. [address] [place] [phone] 06/04/2024 8:30 AM CDT Ancillary Procedure Department of Cardiovascular Medicine in [place], [place] [address] [place] [phone] Devi Stafford APRN, C.NTato, M.S.N. [address] [place] [phone] 06/04/2024 9:30 AM CDT Appointment Department of Radiology, [facility] in [place], [place] [address] [place] [phone] Devi Stafford APRN, C.NTripp., M.S.N. [address] [place] [phone] 06/04/2024 12:40 PM CDT Appointment Department of Cardiovascular Diseases in [place], [place] [address] [place] [phone] Devi Stafford APRN, C.N.P., M.S.N. [address] [place] [address] Discharge Disposition: Home or Self Care 06/04/2024 2:15 PM CDT Office Visit Department of Cardiovascular Medicine in [place], [place] [address] [place] [address] Devi Stafford APRN, C.N.P., M.S.N. [address] [place] [phone] documented as of this encounter Visit Diagnoses Not on filedocumented in this encounter Additional Health Concerns Assessment Noted Time PHQ-9 Depression Total Score: 5 03/06/20 18 6:00 PM CDT documented as of this encounter Care Teams Industrial Staff Nurse Relationship Specialty Start Date End Date Elsewhere, Pcp PCP - General Internal Medicine 09/13/22 documented as of this encounter
--- OUTSIDE RECORDS SUMMARY | 2024-03-19 13:25 | XMS_ITS ---
Author Organization [facility] Address [address] [place] [address] Care Team Providers Care Mineral Industry Teacher Name Role Phone Unavailable Unavailable Unavailable Surgery Details Not on file Complications Check Surgery Details section. Procedure Estimated Blood Loss Check Surgery Details section. Procedure Findings Check Surgery Details section. Procedure Specimens Taken Check Surgery Details section.
--- OUTSIDE RECORDS SUMMARY | 2024-03-19 13:26 | XMS_ITS | Encounter Summary ---
Author Organization [facility] Address [address] [place] [address] Care Team Providers Care Document Coordinator Name Role Phone Elsewhere, Pcp Primary Care Provider Unavailabl e Encounter Details Date Type Department Care Team (Latest Contact Info) Description 12/22/2023 4:00 AM CDT - 12/22/2023 11:59 PM CDT Hospital Encounter Department of Cardiovascular Diseases in [place], [place] [address] [place] [address] Elias Alston M.D., Ph.D. [address] [place] [phone] Encounter For Checking And Testing Of Cardiac Pacemaker Pulse Generator Battery Discharge Disposition: Home or Self Care Social History Tobacco Use Types Packs/Day Years Used Date Smoking Tobacco: Former Cigarettes 0 01/12/1955 - 01/16/1985 Smokeless Tobacco: Never Alcohol Use Standard Drinks/Week Comments Yes 10 (1 standard drink = 0.6 oz pu re alcohol) occassional [facility] Utilities Answer Date Recorded In the past 12 months has e [employer], gas, oil, or water [employer] threatened to shut off services in [...] How often do you attend chur or rastafari services? 1 to 4 times per year 08/07/2022 Do you belong to any clubs o r organizations such as bahai groups, unions, fraternal or athletic groups, or [...] Answer Date Recorded PHQ-2 Score 5 01/25/2019 [facility] [place] of Occupat ional Health - Occupational Stress [...] your living situation today? I have a [facility] place to live 12/01/2023 Education Answer [...] 1 tablet by mouth daily. Centrum (per paper cup machine operator) 10/09/2017 omeprazole (PriLOSEC) [address] capsuleIndications:Gas [...] Appointment Department of Laboratory Medicine and Pathology, [facility], in [place], [place] 200 [place] [address] Zara Garvey APRN, C.N.P., D.N.P. 200 [place] [address] 05/03/2024 9:00 AM CDT Appointment Department of Radiology in [address] [phone] Devi Stafford APRN, C.N.P., M.S.N. [address] [place] [phone] Discharge Disposition: Home or Self Care 05/28/2024 10:00 AM CDT Clinical Communication Virtual Review in [place], [place] 200 [place] [phone] 06/04/2024 8:20 AM CDT Appointment Department of Laboratory Medicine and Pathology, [facility] in [address] [phone] Devi Stafford APRN, C.N.P., M.S.N. [address] [place] [phone] 06/04/2024 8:30 AM CDT Ancillary Procedure Department of Cardiovascular Medicine in [place], [place] [address] [place] [phone] Devi Stafford APRN, C.N.P., M.S.N. [address] [place] [phone] 06/04/2024 9:30 AM CDT Appointment Department of Radiology, [facility] in [place], [place] [address] [place] [phone] Devi Stafford APRN, C.N.P., M.S.N. [address] [place] [phone] 06/04/2024 12:40 PM CDT Appointment Department of Cardiovascular Diseases in [address] [phone] Devi Stafford APRN, Jass.N.P., M.S.N. [address] [place] [address] Discharge Disposition: Home or Self Care 06/04/2024 2:15 PM CDT Office Visit Department of Cardiovascular Medicine in [place], [place] [address] [place] [address] Devi Stafford APRN, C.N.P., M.S.N. [address] [place] [address] documented as of this encounter Procedures Procedure Name Priority Date/Time Associated Diagnosis Comments PACER REMOTE FOLLOW UP Routine 12/22/2023 12:54 PM CDT Encounter For Checking And Testing Of Cardiac Pacemaker Pulse Generator Battery documented in this encounter Results * PACER REMOTE FOLLOW UP (12/22/2023 12:54 PM CDT) Date Time Interrogation Session [id number] [facility] Implantable Pulse Generator Permit Review Assistant Medtronic [facility] Implantable Pulse Generator Model [id number] [place] XT SR MRI [facility] Implantable Pulse Generator Serial Number [id number] [facility] Type Interrogation Session Remote [facility] Clinic Name [facility] Implantable Pulse Generator Type Pacemaker [facility] Implantable Pulse Generator Implant Date [id number] [facility] Implantable Lead Permit Review Assistant Medtronic [facility] Implantable Lead Model 4196 Attain Ability MRI SureScan [facility] Implantable Lead Serial Number [id number] [facility] Implantable Lead Implant [...] Setting Sensing Cathode Location Right Ventricle [facility] Lead Channel Setting Sensing Cathode [...] Channel Setting Pacing Amplitude 3 V [facility] Lead Channel [...] [facility] Lead Channel Impedance Value 798 ohm [facility] Lead Channel Impedance Value 342 ohm [facility] Lead Channel Sensing Intrinsic Amplitude 15.75 mV [facility] Lead Channel Sensing Intrinsic Amplitude 15.75 mV [facility] Lead Channel Pacing Threshold Amplitude 1.375 V [facility] Lead Channel Pacing Threshold Pulse Width 0.4 ms [facility] Battery Date Time of Measurements [id number] [facility] 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.625 [facility] Battery Remaining Longevity 88 mo [...] SYSTEM Episode Statistic Recent Date Time Start [id number] [facility] Episode Statistic Recent Date Time End [id number] [facility] Episode Statistic Recent Date Time Start [id number] [facility] Episode Statistic Recent Date Time End [facility] Episode Statistic Recent Date Time Start [id number] [facility] Episode Statistic Recent Date [...] SYSTEM Episode Statistic Total Date Time Start [id number] [facility] Episode Statistic Total Date Time End [id number] [facility] Episode Statistic Total Date Time Start [id number] [facility] Episode Statistic Total Date Time End [id number] [facility] Episode Statistic Total Date Time Start [id number] [facility] Episode Statistic Total Date Time End [id number] [facility] Anatomical Region Laterality Modality Other 12/21/2023 11:4 3 PM CDT Narrative 12/26/2023 6:14 PM CDT PURPOSE OF VISIT: ??Routine remote transmission. 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
--- OUTSIDE RECORDS SUMMARY | 2024-03-19 13:26 | XMS_ITS | Encounter Summary ---
Author Organization [facility] Address [address] [place] [address] Care Team Providers Care Appeals Rn Name Role Phone Elsewhere, Pcp Primary Care Provider Unavailabl e Encounter Details Date Type Department Care Team (Late st Contact Info) Description 12/15/2023 9:34 AM CDT - 12/15/2023 11:59 PM CDT Hospital Encounter Department of Laboratory Medicine and Pathology, [facility] in [place], [place] [address] [place] [phone] Zara Garvey, ROSAURA, C.N.P., D.N.P. [address] [place] [phone] Malignant Neoplasm Of Thyroid Papillary (HCC) Discharge Disposition: Home or Self Care Social History Tobacco Use Types Packs/Day Years Used Date Smoking Tobacco: Former Cigarettes 0 01/12/1955 - 01/16/1985 Smokeless Tobacco: Never Alcohol Use Standard Drinks/Week Comments Yes 10 (1 standard drink = 0.6 oz pu re alcohol) occassional [facility] Utilities Answer Date Recorded In the [...] How often do you attend chur or jew services? 1 to 4 times per year 08/07/2022 Do you belong to any clubs o r organizations such as buddhism groups, unions, fraternal or athletic groups, or [...] Answer Date Recorded PHQ-2 Score 5 01/25/2019 [facility] [place] of Occupat ional Health - Occupational Stress [...] your living situation today? I have a [facility] place to live 12/01/2023 Education Answer [...] 1 tablet by mouth daily. Centrum (per estate planning director) 10/09/2017 omeprazole (PriLOSEC) [address] capsuleIndications:Gas [...] of Laboratory Medicine and Pathology, [facility] in [place], [place] [address] [place] [address] Zara Garvey APRN, C.NTripp., D.N.P. [address] [place] [phone] 05/03/2024 9:00 AM CDT Appointment Department of Radiology in [address] [phone] Devi Stafford APRN, C.N.P., M.S.N. [address] [place] [phone] Discharge Disposition: Home or Self Care 05/28/2024 10:00 AM CDT Clinical Communication Virtual Review in [place], [place] 200 [place] [address] 06/04/2024 8:20 AM CDT Appointment Department of Laboratory Medicine and Pathology, [facility] in [place], [place] [address] [place] [phone] Devi Stafford APRN, C.N.P., M.S.N. [address] [place] [phone] 06/04/2024 8:30 AM CDT Ancillary Procedure Department of Cardiovascular Medicine in [place], [place] [address] [place] [phone] Devi Stafford APRN, C.N.Yvrose, M.S.N. [address] [place] [phone] 06/04/2024 9:30 AM CDT Appointment Department of Radiology, [facility] in [place], [place] [address] [place] [phone] Devi Stafford APRN, C.N.PDavis, M.S.N. [address] [place] [phone] 06/04/2024 12:40 PM CDT Appointment Department of Cardiovascular Diseases in [place], [place] [address] [place] [phone] Devi Stafford APRN, C.N.P., M.S.N. [address] [place] [phone] Discharge Disposition: Home or Self Care 06/04/2024 2:15 PM CDT Office Visit Department of Cardiovascular Medicine in [place], [place] [address] [place] [phone] Devi Stafford APRN CDavisNDavisP., M.S.N. 200 [place] [phone] documented as of this encounter Procedures Procedure Name Priority Date/Time Associated Diagnosis Comments AK THYROGLOBULIN SERUM Routine 8:40 AM CDT THYROGLOBULIN, TM, REFLEX TO [...] IA 2.8(H) ng/mL 02/08/2024 4:08 PM CDT [facility] Comment: ----REFERENCE VALUE---- Athyrotic <0.1 Intact Thyroid <=33 Thyroglobulin Interpretation SEE COMMENT 02/08/2024 4:08 PM CDT [facility] Comment: Thyroglobulin (Tg) levels must [...] testing methods are immunoenzymatic assays manufactured by [employer] and performed on the [employer] DXI 800. [...] LAB BLOOD NON ADD-ON Performing Organization Address City/[facility]/ZIP Co de Phone Number [facility] [address] [place] [address] [facility] [address] [place] [address] * (ABNORMAL) T4 (Thyroxine), Free (02/07/2024 8:40 AM CDT) T4 (Thyroxine), Free, S 3.1(H) 0.9 - 1.7 ng/dL 02/08/2024 12:14 PM CDT DTL Blood (Blood, Venous) 02/07/2024 8:40 AM CDT 02/08/2024 9:06 AM CDT Narrative Resulting Agency Comment Mailed In Specimen Jass Sky APRN.N.P., D.N.P. LAB BLOOD ADD-ON [facility] [address] [place] [address], [facility] [address] [place] [address] * (ABNORMAL) S-TSH (Thyroid-Stimulating Hormone - Sensitive) (02/07/2024 8:40 AM CDT) TSH, Sensitive 0.01(L) 0.3 - 4.2 mIU/L 02/08/2024 12:14 PM CDT DTL Blood (Blood, Venous) 02/07/2024 8:40 AM CDT 02/08/2024 9:06 AM CDT Narrative Resulting Agency Comment Mailed In Specimen Seven Sky APRNN.Yvrose, D.N.P. LAB BLOOD ADD-ON Performing Organization Address [facility]/ZIP Co de Phone Number [facility] [address] [place] [address], [facility] [address] [place] [address] * Thyroglobulin, Tumor Marker Reflex to LC-MS/MS or Immunoassay (02/07/2024 8:40 AM CDT) Thyroglobulin Antibody, S <1.8 <1.8 IU/mL 02/08/2024 2:39 PM CDT [facility] Comment: Thyroglobulin Antibody < 1.8 IU/mL. Thyroglobulin performed by Immunoassay to follow. Blood (Blood, Venous) 02/07/2024 8:40 AM CDT 02/08/2024 1:24 PM CDT Narrative Resulting Agency Comment Mailed In Specimen Seven Sky APRNN.Marilee., D.N.P. LAB BLOOD NON ADD-ON Performing Organization Address City/[facility] Co de Phone Number [facility] [address] [place] [address] [facility] [address] [place] [address] documented in this encounter Visit Diagnoses Diagnosis Malignant Neoplasm Of Thyroid Papillary (HCC) documented in this encounter Additional Health Concerns Assessment Noted Time PHQ-9 Depression Total Score: 5 03/06/20 18 6:00 PM CDT documented as of this encounter Care Teams Appeals Rn Relationship Specialty Start Date End Date Elsewhere, Pcp PCP - General Internal Medicine 09/13/22 documented as of this encounter
--- OUTSIDE RECORDS SUMMARY | 2024-03-19 13:26 | XMS_ITS | Encounter Summary ---
Author Organization [facility] Address [address] [place] [address] Care Team Providers Care Clay Artisan Name Role Phone Elsewhere, Pcp Primary Care Provider Unavailabl e Reason for Referral * MRI/CAT/PET Scan (Routine) - Authorized Specialty Diagnoses / Procedures Referred By Contac t Referred To Contact Radiology Diagnoses Malignant Neoplasm Of Thyroid Papillary (HCC) Procedures CT Chest without IV Contrast Zara Garvey APRN, C.N.P., D.N.P. [address] [place] [phone] [facility] Referral ID Status Reason Start Date Expiration Date V isits Requested Visits Authorized [id number] Authorized 12/14/2023 12/13/2024 1 1 * Outpatient (Routine) - Authorized Specialty Diagnoses / Procedures Referred By Contac t Referred To Contact Diagnoses Malignant Neoplasm Of Thyroid Papillary (HCC) Procedures US Head Neck Soft Tissue Zara Garvey APRN, C.N.P., D.N.P. [address] [place] [phone] [facility] Referral ID Status Reason Start Date Expiration Date V isits Requested Visits Authorized [id number] Authorized 12/14/2023 12/13/2024 1 1 * Outpatient (Routine) - Authorized Specialty Diagnoses / Procedures Referred By Contac t Referred To Contact Endocrinology Diagnoses Malignant Neoplasm Of Thyroid Papillary (HCC) Zara Garvey APRN C.N.PDavis, D.N.P. [address] [place] [phone] Ciara Hebert M.D. [address] [place] [phone] Referral ID Status Reason Start Date Expiration Date V isits Requested Visits Authorized [id number] Authorized 12/14/2023 06/14/2025 1 1 Scheduling Instructions Please schedule with any of the Thyroid Consultants (MD only) for 6 months from December 2023 Reason for Visit * Outpatient (Routine) - Closed Specialty Diagnoses / Procedures Referred By Contac t Referred To Contact Endocrinology Diagnoses Malignant Neoplasm Of Thyroid Papillary (HCC) Jemal Murrell M.B.B.S., M.D. [address] [place] [phone] [facility] Referral ID Status Reason Start Date Expiration Date Visits Re quested Visits Authorized [id number] Closed 02/01/2023 01/31/2026 1 1 Encounter Details Date Type Department Care Team (Late st Contact Info) Description 12/14/2023 3:00 PM CDT Virtual Visit Division of Endocrinology in [place], [place] [address] [place] [phone] Zara Garvey APRN C.N.P., D.N.P. [address] [place] [phone] Malignant Neoplasm Of Thyroid Papillary (HCC) Social History Tobacco Use Types Packs/Day Years Used Date Smoking Tobacco: Former Cigarettes 0 01/12/1955 - 01/16/1985 Smokeless Tobacco: Never Alcohol Use Standard Drinks/Week Comments Yes 10 (1 standard drink = 0.6 oz pu re alcohol) occassional [facility] Utilities Answer Date Recorded In the past 12 months has e [employer], gas, oil, or water company threatened to [...] How often do you attend chur or baptism services? 1 to 4 times per year [...] Answer Date Recorded PHQ-2 Score 5 01/25/2019 [facility] - Occupational Stress Questionnaire Answer Date [...] your living situation today? I have a [facility] place to live 12/01/2023 Education [...] real-time audio/video technology by Zara Garvey APRN, Jass.N.Marilee., D.N.P. in [facility] to the patient in Patient's Home Phone [...] were reviewed by our pathologist here at [facility] who concurred with this diagnosis. His treatment was somewhat delayed due to his cardiac issues, but in March 2017 between hospitalizations he had a further ultrasound of the soft tissue head and neck here at [facility]. This revealed multiple enlarged lymph nodes in [...] to the strapmuscles. Overall the staging is [id number] and this is high risk disease. Of [...] 09/06/2018. His pre treatment scan revealed focal [id number] along the expected location of the thyroglossal [...] Bone Mineral Density (BMD) analysis performed on CPXi with serial number [id number]. FINDINGS: Left Hip: Femur Neck: BMD = [...] / PLAN #1. Metastatic papillary thyroid cancer- [id number]- possible mets to lung? #2. Status post [...] Appointment Department of Laboratory Medicine and Pathology, [facility], in [place], [place] [address] [place] [phone] Zara Garvey APRN, C.N.P., D.N.P. [address] [place] [phone] 05/03/2024 9:00 AM CDT Appointment Department of Radiology in [address] [phone] Devi Stafford APRN, C.N.P., M.S.N. [address] [place] [phone] Discharge Disposition: Home or Self Care 05/28/2024 10:00 AM CDT Clinical Communication Virtual Review in [place], [place] 200 [place] [phone] 06/04/2024 8:20 AM CDT Appointment Department of Laboratory Medicine and Pathology, [facility] in [place], [place] [address] [place] [phone] Devi Stafford APRN, C.N.PDavis, M.S.N. [address] [place] [phone] 06/04/2024 8:30 AM CDT Ancillary Procedure Department of Cardiovascular Medicine in [place], [place] [address] [place] [phone] Devi Stafford APRN, C.N.Marilee., M.S.N. [address] [place] [phone] 06/04/2024 9:30 AM CDT Appointment Department of Radiology, [facility] in [place], [place] [address] [place] [phone] Devi Stafford APRN, C.N.Yvrose, M.S.N. [address] [place] [phone] 06/04/2024 12:40 PM CDT Appointment Department of Cardiovascular Diseases in [place], [place] [address] [place] [phone] Devi Stafford APRN, C.N.P., M.S.N. [address] [place] [phone] Discharge Disposition: Home or Self Care 06/04/2024 2:15 PM CDT Office Visit Department of Cardiovascular Medicine in [place], [place] [address] [place] [phone] Devi Stafford APRN, C.N.P., M.S.N. [address] [place] [phone] Scheduled Orders Name Type Priority Associated Diagnoses [...] Garvey APRN, C.N.P., D.N.P. LAB BLOOD ADD-ON [facility] [address] [place] [address], [facility] [address] [place] [address] * (ABNORMAL) S-TSH (Thyroid-Stimulating Hormone - Sensitive) (02/07/2024 8:40 AM CDT) TSH, Sensitive 0.01(L) 0.3 - 4.2 mIU/L 02/08/2024 12:14 PM CDT DT Blood (Blood, Venous) 02/07/2024 8:40 AM CDT 02/08/2024 9:06 AM CDT Narrative Resulting Agency Comment Mailed In Specimen Jass Sky APRN.N.P., D.N.P. LAB BLOOD ADD-ON Performing Organization Address City/[facility]/ZIP Co de Phone Number [facility] [address] [place], [place] [address] [address] [place] [address] * Thyroglobulin, Tumor Marker Reflex to LC-MS/MS or Immunoassay (02/07/2024 8:40 AM CDT) Pathologist [facility] Thyroglobulin Antibody, S <1.8 <1.8 IU/mL 02/08/2024 2:39 PM CDT [facility] Comment: Thyroglobulin Antibody < 1.8 IU/mL. Thyroglobulin performed by Immunoassay to follow. Blood (Blood, Venous) 02/07/2024 8:40 AM CDT 02/08/2024 1:24 PM CDT Narrative Resulting Agency Comment Mailed In Specimen Jass Sky APRN.N.P., D.N.P. LAB BLOOD NON ADD-ON [facility] [address] [facility] [address] [address] documented in this encounter Visit Diagnoses Diagnosis Malignant Neoplasm Of Thyroid Papillary (HCC) documented in this encounter Additional Health Concerns Assessment Noted Time PHQ-9 Depression Total Score: 5 03/06/20 18 6:00 PM CDT documented as of this encounter Care Teams Clay Artisan Relationship Specialty Start Date End Date Elsewhere, Pcp PCP - General Internal Medicine 09/13/22 documented as of this encounter
--- OUTSIDE RECORDS SUMMARY | 2024-03-19 13:26 | XMS_ITS | Encounter Summary ---
Author Organization [facility] Address [address] [place] [phone] Care Team Providers Care Cigar Sorter Name Role Phone Elsewhere, Pcp Primary Care Provider Unavailabl e Reason for Visit * Reason Onset Date Comments medical question 12/19/2023 Encounter Details Date Type Department Care Team (Latest Contact Info) Description 12/19/2023 Clinical Communication Division of Endocrinology in [place], [place] [address] [place] [phone] Zara Garvey, ROSAURA, C.N.P., D.N.P. [address] [place] [phone] medical question Social History Tobacco Use Types Packs/Day Years Used Date Smoking Tobacco: Former Cigarettes 0 01/12/1955 - 01/16/1985 Smokeless Tobacco: Never Alcohol Use Standard Drinks/Week Comments Yes 10 (1 standard drink = 0.6 oz pu re alcohol) occassional [facility] Utilities Answer Date Recorded In the past 12 months has e [employer], gas, oil, or water [employer] threatened to shut off services in your [...] How often do you attend chur or presybeterian services? 1 to 4 times per year [...] Answer Date Recorded PHQ-2 Score 5 01/25/2019 [facility] - Occupational Stress [...] your living situation today? I have a [facility] place to live 12/01/2023 Education Answer [...] and Pathology, [facility] in [place], [place] [address] [place] [phone] Zara Garvey APRN, C.N.P., D.N.P. [address] [place] [phone] 05/03/2024 9:00 AM CDT Appointment Department of Radiology in [address] [phone] Devi Stafford APRN, C.N.P., M.S.N. [address] [place] [phone] Discharge Disposition: Home or Self Care 05/28/2024 10:00 AM CDT Clinical Communication Virtual Review in [place], [place] [address] [place] [phone] 06/04/2024 8:20 AM CDT Appointment Department of Laboratory Medicine and Pathology, [facility] in [place], [place] [address] [place] [phone] Devi Stafford APRN, C.N.P., M.S.N. [address] [place] [phone] 06/04/2024 8:30 AM CDT Ancillary Procedure Department of Cardiovascular Medicine in [place], [place] [address] [place] [phone] Devi Stafford APRN, C.N.P., M.S.N. [address] [place] [phone] 06/04/2024 9:30 AM CDT Appointment Department of Radiology, [facility], in [place], [place] [address] [place] [phone] Devi Stafford APRN, C.N.P., M.S.N. [address] [place] [phone] 06/04/2024 12:40 PM CDT Appointment Department of Cardiovascular Diseases in [place], [place] [address] [place] [phone] Devi Stafford APRN, C.N.P., M.S.N. [address] [place] [phone] Discharge Disposition: Home or Self Care 06/04/2024 2:15 PM CDT Office Visit Department of Cardiovascular Medicine in [place], [place] [address] [place] [phone] Devi Stafford APRN, C.N.P., M.S.N. [address] [place] [phone] documented as of this encounter Visit Diagnoses Not on filedocumented in this encounter Additional Health Concerns Assessment Noted Time PHQ-9 Depression Total Score: 5 03/06/20 18 6:00 PM CDT documented as of this encounter Care Teams Cigar Sorter Relationship Specialty Start Date End Date Elsewhere, Pcp PCP - General Internal Medicine 09/13/22 documented as of this encounter
== END 2024-03-18 12:53 | disposition home or self-care (01) ==
LOC: NFLDREF 03-19 13:22
PROVIDERS: PCP Family Medicine; Referring Provider Family Medicine; Visit Provider Family Medicine
DX: I48.91 Unspecified atrial fibrillation (principal); Z79.01 Long term (current) use of anticoagulants
CPT/HCPCS: 85610

== ENCOUNTER 2024-04-02 14:14 | Outpatient (CLI) | payer MEDICARE, SELFPAY ==
--- OUTSIDE RECORDS SUMMARY | 2024-04-03 08:34 | XMS_ITS | Clinical Summary ---
Author Organization [facility] Address [address] [place] [address] Care Team Providers Care Can Tester Name Role Phone Elsewhere, Pcp Primary Care Provider Unavailabl e Source Comments Patient records contain information from all sites at [facility]. For routine questions regarding patient records, call [phone] during business hours, M-F 8:00 AM - 5:00 PM Central Time. Record requests for emergency care only can be directed to [phone] at any time.[facility] Allergies Active Allergy Reactions Criticality Noted Date [...] 1 tablet by mouth daily. 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 Malignant Neoplasm Of Thyroid Papillary (HCC) Discharge Disposition: Home or Self Care 03/22/2024 4:00 AM CDT - 03/22/2024 11:59 PM CDT Hospital Encounter Department of Cardiovascular Diseases in [place], [place] [address] [place] [phone] Julian Garduno M.D., Ph.D. Encounter For Checking And Testing Of Cardiac Pacemaker Pulse Generator Battery Discharge Disposition: Home or Self Care 03/12/2024 Clinical Communication Department of Cardiovascular Medicine in [place], [place] [address] [place] [phone] Devi Stafford APRN, C.N.P., M.S.N. Pre-visit Testing Orders 02/27/2024 Refill Division of Endocrinology in [place], [place] [address] [place] [address] Raven Holloway M.D. Med Refill 02/08/2024 Clinical Communication Division of Endocrinology in [place], [place] [address] [place] [address] Zara Garvey APRN, C.N.P., D.N.P. Thyroid Message Confirmation 02/08/2024 Orders Only Division of Endocrinology in [place], [place] [address] [place] [address] Zara Garvey APRN C.N.P., D.N.P. Malignant Neoplasm Of Thyroid Papillary (HCC) (Primary Dx) from Last 3 Months Immunizations Name Administration [...] Recorded In the past 12 months has [facility] [employer], oil, or water [employer] threatened to shut off services in your [...] any clubs o r organizations such as roman catholic groups, unions, fraternal or athletic groups, or [...] Answer Date Recorded PHQ-2 Score 5 01/25/2019 [facility] Occupat ional Health - Occupational Stress [...] your living situation today? I have a [facility] place to live 12/01/2023 Education Answer Date [...] Comments Blood Pressure 138/86 09/25/2023 3:[address] [facility] Pulse 73 09/25/2023 3:[address] [facility] Temperature 36.6 ??C (97.9 ??F) 04/10/2023 10:00 AM C DT Respiratory Rate 16 04/10/2023 6:41 AM CDT Oxygen Saturation 94% 04/10/2023 10:10 AM CDT Inhaled Oxygen Concentration - - Weight 72 kg (158 lb 12.8 oz) 09/25/2023 3:[address] [facility] Height 170.1 cm (5' 6.97) 09/25/2023 3:03 PM CS T Body Mass Index 24.89 09/25/2023 3:[address] [facility] Plan of Treatment Upcoming Encounters Date Type Department Care Team (Latest Contact Info) Description 05/03/2024 9:00 AM CDT Appointment Department of Radiology in [address] [phone] Devi Stafford APRN, C.NTripp., M.S.N. [address] [place] [phone] Discharge Disposition: Home or Self Care 05/28/2024 10:00 AM CDT Clinical Communication Virtual Review in [place], [place] 200 [place] [address] 06/04/2024 8:20 AM CDT Appointment Department of Laboratory Medicine and Pathology, [facility] in [place], [place] [address] [place] [phone] Devi Stafford APRN, C.NTripp., M.S.N. [address] [place] [phone] 06/04/2024 8:30 AM CDT Ancillary Procedure Department of Cardiovascular Medicine in [place], [place] [address] [place] [phone] Devi Stafford APRN, C.N.Marilee., M.S.N. [address] [place] [phone] 06/04/2024 9:30 AM CDT Appointment Department of Radiology, [facility], in [place], [place] [address] [place] [phone] Devi Stafford APRN, C.N.P., M.S.N. [address] [place] [phone] 06/04/2024 12:40 PM CDT Appointment Department of Cardiovascular Diseases in [place], [place] [address] [place] [address] Devi Stafford APRN, C.N.P., M.S.N. [address] [place] [phone] Discharge Disposition: Home or Self Care 06/04/2024 2:15 PM CDT Office Visit Department of Cardiovascular Medicine in [place], [place] [address] [place] [address] Devi Stafford APRN, C.N.P., M.S.N. [address] [place] [phone] Health Maintenance Due Date Last Done Comments [...] Stimulating Hormone (TSH) test for thyroid function 03/27/2025 03/27/2024, 02/07/2024, 12/06/2023, Additional history exists DTaP,Tdap,and Td Vaccines (3 - Td or Tdap) 02/08/2032 02/07/2022, 06/20/2012 Pneumococcal vaccine (65+ years) Completed 09/16/19 15, 06/27/2008 Zoster Vaccines Completed 05/13/2019, 01/21/2019 Medical Devices Implanted Type Area Brass Pickler Device Identifier Shelf Expiration Date Model / Serial / Lot Lead [id number] Licensed Clinical Social Worker Attain Ability - Darling [id number] Implanted:Qty: 1 on 10/09/2017 Cardiac Lead Coronary Medtronic / [id number] / Description:Device Manufactu rer - Medtronic [employer] Body Location - Other. Coronary Sinus. Device Status Text - CARD [id number]. Conversions - Default Historical Implant Device Implanted:03/07 (Quantity not on file) Cardiac Valve Prosthesis Aorta Description:Device Status Te xt - CardValve. pig valve placed on 11-16-2016. Mesh Or Patch-08/14/2022 Implanted:08/14 (Quantity not on file) Mesh or Patch Stomach Description:Hernia Mesh 2 Dental Bridges Misc Other Mouth Description:Upper and Lower Dental Bridge. Pacer Preeti Xt Sr Mri - Darling [id number] Implanted:Qty: 1 on 10/09/2017 Pacemaker Other/Legacy - See Implant Description Medtronic / [id number] 1S / Description:Device Manufactu rer - flo.do. Body Location - Other. Left. Device Status Text - [id number]. Vascular Other-08/14/2016 Implanted:08/14 (Quantity not on file) Vascular Other Right: Arm Description:A/V fistula Procedures Procedure Name Priority Date/Time Associated Diagnosis Comments PACER REMOTE FOLLOW UP Routine 4 12:50 PM CDT Encounter For Checking And Testing Of Cardiac Pacemaker Pulse Generator Battery T4 (THYROXINE), FREE, S Routine 03/27/2024 9:12 AM CDT Malignant Neoplasm Of Thyroid Papillary (HCC) THYROID-STIMULATING HORMONE-SENSITIVE (S-TSH) Routine 03/27/2024 9:12 AM CDT Malignant Neoplasm Of Thyroid Papillary (HCC) [place] THYROGLOBULIN SERUM Routine 4 8:40 AM CDT [...] Maintenance Results * PACER REMOTE FOLLOW UP (03/27/2024 12:50 PM CDT) Date Time Interrogation Session [id number] [facility] Implantable Pulse Generator Brass Pickler Medtronic [facility] Implantable Pulse Generator Model [id number] [place] XT SR MRI [facility] Implantable Pulse Generator Serial Number [id number] [facility] Type Interrogation Session Remote [facility] Clinic Name [facility] Implantable Pulse Generator Type Pacemaker [facility] Implantable Pulse Generator Implant Date [id number] [facility] Implantable Lead Brass Pickler Medtronic [facility] Implantable Lead Model [id number] Attain Ability MRI SureScan [facility] Implantable Lead Serial Number [id number] [facility] Implantable [...] [facility] Lead Channel Impedance Value 855 ohm [facility] Lead Channel Impedance Value 361 ohm [facility] Lead Channel Sensing Intrinsic Amplitude 19.75 mV [facility] Lead Channel Sensing Intrinsic Amplitude 19.75 mV [facility] Lead Channel Pacing Threshold Amplitude 1.5 V [facility] Lead Channel Pacing Threshold Pulse Width 0.4 ms [facility] Battery Date Time of Measurements [facility] Battery KNITTER MACHINE Trigger 2.625 [facility] Battery Remaining Longevity 87 mo [facility] Battery Voltage 2.99 V [facility] Ch[place] Statistic Date Time Start [facility] [place] Statistic Date Time End [facility] [place] Statistic RV Percent Paced 99.44 % [facility] Episode Statistic Recent [...] LAB SYSTEM Anatomical Region Laterality Modality Other 03/21/2024 11:5 8 PM CDT Narrative 03/28/2024 2:20 PM CDT PURPOSE OF VISIT: ??Routine remote transmission. PRESENTING EGM: ??CASH REGISTER REPAIRER at 60 bpm VENTRICULAR ARRHYTHMIAS: ?No new events. BATTERY LONGEVITY: Expected battery longevity trends reviewed and are stable and consistent with device settings and use. SUMMARY: All device function appears normal. SIC=0. FOLLOW UP: Next routine follow-up will be in 3 months via [facility] transmission. DEVICE RN: Rain Mae RN Provider statement: This patient underwent device interrogation. I agree that the device interrogation was medically indicated to provide appropriate care and continue routine device interrogations as indicated. Julian Garduno M.D., Ph.D. CV I MPLANTABLE CARDIAC DEVICE * (ABNORMAL) S-TSH (Thyroid-Stimulating Hormone - Sensitive) (03/27/2024 9:12 AM CDT) Only the most recent of2 resultswithin the time period is included. TSH, Sensitive 0.02(L) 0.3 - 4.2 mIU/L 03/27/2024 10:17 AM CDT DTL Blood (Blood, Venous) 03/27/2024 9:12 AM CDT 03/27/2024 9:52 AM CDT Zara Garvey APRN, C.N.P., D.N.P. LAB BLOOD ADD-ON [facility] [address] [place], [place] [phone] [place] [address] [address] [place] [address] * (ABNORMAL) T4 (Thyroxine), Free (03/27/2024 9:12 AM CDT) Only the most recent of2 resultswithin the time period is included. T4 (Thyroxine), Free, S 2.4(H) 0.9 - 1.7 ng/dL 03/27/2024 10:17 AM CDT DT Blood (Blood, Venous) 03/27/2024 9:12 AM CDT 03/27/2024 9:52 AM CDT Zara Garvey APRN, C.N.P., D.N.P. LAB BLOOD ADD-ON Performing Organization Address City/[facility] Co de Phone Number [facility] 200 [place], [place] [phone] [place] [address] 200 [place] [address] * (ABNORMAL) Thyroglobulin, Tumor Marker by Immunoassay (02/07/2024 8:40 AM CDT) [facility] Thyroglobulin, Tumor Marker, IA 2.8(H) ng/mL 02/08/2024 4:08 PM CDT [facility] Comment: ----REFERENCE VALUE---- Athyrotic <0.1 Intact Thyroid <=33 Thyroglobulin Interpretation SEE COMMENT 02/08/2024 4:08 PM CDT [facility] Comment: Thyroglobulin (Tg) levels must be [...] testing methods are immunoenzymatic assays manufactured by [employer] and performed on the Ummitech DXI 800. Values obtained from different assay methods or kits may be different and cannot be used interchangeably. The results cannot be interpreted as absolute evidence for the presence or absence of malignant disease. Blood 02/07/2024 8:40 AM CDT 02/08/2024 1:24 PM CDT Narrative Resulting Agency Comment Mailed In Specimen Jass Sky APRN.N.P., D.N.P. LAB BLOOD NON ADD-ON Performing Organization Address [facility] Co de Phone Number [facility] [address] [place] [address] [facility] [address] [place] [address] [place] [address] * Thyroglobulin, Tumor Marker Reflex to LC-MS/MS or Immunoassay (02/07/2024 8:40 AM CDT) Thyroglobulin Antibody, S <1.8 <1.8 IU/mL 02/08/2024 2:39 PM CDT [facility] Comment: Thyroglobulin Antibody < 1.8 IU/mL. Thyroglobulin performed by Immunoassay to follow. Blood (Blood, Venous) 02/07/2024 8:40 AM CDT 02/08/2024 1:24 PM CDT Narrative Resulting Agency Comment Mailed In Specimen Jass Sky APRN.N.P., D.N.P. LAB BLOOD NON ADD-ON Performing Organization Address City/[facility]/ZIP Co de Phone Number [facility] [address] [place] [address] [facility] [address] [place] [address] * Sodium (05/02/2023 9:28 AM CDT) Sodium, S 142 135 - 145 mmol/L 05/02/2023 10:49 AM CDT DTL Blood (Blood, Venous) 05/02/2023 9:28 AM CDT 05/02/2023 10:09 AM CDT Devi Stafford APRN, C.N.P., M.S.N. LAB BLOOD ADD-ON Performing Organization Address City/[facility]/[place] [address] * Potassium (05/02/2023 9:28 AM CDT) Potassium, S 4.7 3.6 - 5.2 mmol/L 05/02/2023 10:49 AM CDT DTL Blood (Blood, Venous) 05/02/2023 9:28 AM CDT 05/02/2023 10:09 AM CDT Devi Stafford APRN, C.N.P., M.S.N. LAB BLOOD ADD-ON Performing Organization Address City/[facility] Co de Phone Number [facility] [address] [place] [address] * (ABNORMAL) Creatinine with Estimated GFR (05/02/2023 9:28 AM CDT) Creatinine 2.09(H) 0.74 - 1.35 mg/dL 05/02/2023 10:49 AM CDT DTL Estimated GFR (eGFR) 31(L) >=60 mL/min/BSA 05/02/2023 10:49 AM CDT DTL Comment: Estimated GFR calculated using the 2020 CKD_EPI creatinine equation. Blood (Blood, Venous) 05/02/2023 9:28 AM CDT 05/02/2023 10:09 AM CDT Devi Stafford APRN, C.N.P., M.S.N. 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
--- OUTSIDE RECORDS SUMMARY | 2024-04-03 08:34 | XMS_ITS | Encounter Summary ---
Author Organization [facility] Address [address] [place] [address] Care Team Providers Care Blade Filer Name Role Phone Elsewhere, Pcp Primary Care Provider Unavailabl e Encounter Details Date Type Department Care Team (Late st Contact Info) Description 03/27/2024 8:57 AM CDT - 03/27/2024 11:59 PM CDT Hospital Encounter Department of Laboratory Medicine and Pathology, [facility] in [place], [place] [address] [place] [phone] Zara Garvey, ROSAURA, C.N.P., D.N.P. [address] [place] [phone] Malignant Neoplasm Of Thyroid Papillary (HCC) Discharge Disposition: Home or Self Care Social History Tobacco Use Types Packs/Day Years Used Date Smoking Tobacco: Former Cigarettes 0 01/12/1955 - 01/16/1985 Smokeless Tobacco: Never Alcohol Use Standard Drinks/Week Comments Yes 10 (1 standard drink = 0.6 oz pu re alcohol) occassional [facility] Utilities Answer Date Recorded In [...] How often do you attend chur or nondenominational services? 1 to 4 times per year [...] Date Recorded PHQ-2 Score 5 01/25/2019 [facility] [place] of Occupat ional Health - Occupational Stress [...] your living situation today? I have a [facility] place to live 12/01/2023 Education Answer [...] 1 tablet by mouth daily. Centrum (per flat knitter helper) 10/09/2017 omeprazole (PriLOSEC) [address] capsuleIndications:Gas [...] - Zara Garvey APRN, C.N.P., D.N.P. - 03/28/2024 5:17 PM CDT Awilda Kearney-- I am reviewing your recent thyroid levels which are improved since we reduced your dose of levothyroxine 200 mcg daily to having you continue with 200 mcg daily tablets except for 1 day a week where you only take 1/2 a tablet. How have you been feeling at this dose? Any symptoms of palpitations, tremors, diarrhea, sleeplessness, weight loss? Depending on how you are feeling, we may elect to continue with current dosing as we understand that intentionally keeping your TSH low at less than 0.1 can help to suppress the growth of thyroid cancer. Additionally, the last time we met, I had discussedestablishing you with one of my Custodial Foreman colleagues given your complex thyroid cancer history. We had planned for that to be around June 2024. Any luck with scheduling this? I would recommend contacting appointment line [phone] to start scheduling. I look forward to your reply. Shelbi Gardiner documented in this encounter Plan of Treatment Upcoming Encounters Date Type Department Care Team (Latest Contact Info) Description 05/03/2024 9:00 AM CDT Appointment Department of Radiology in [address] [phone] Devi Stafford APRN, C.N.P., M.S.N. [address] [place] [phone] Discharge Disposition: Home or Self Care 05/28/2024 10:00 AM CDT Clinical Communication Virtual Review in [place], [place] 200 [place] [address] 06/04/2024 8:20 AM CDT Appointment Department of Laboratory Medicine and Pathology, [facility], in [place], [place] [address] [place] [phone] Devi Stafford APRN, C.N.P., M.S.N. [address] [place] [phone] 06/04/2024 8:30 AM CDT Ancillary Procedure Department of Cardiovascular Medicine in [place], [place] [address] [place] [phone] Devi Stafford APRN, C.NTato, M.S.N. [address] [place] [phone] 06/04/2024 9:30 AM CDT Appointment Department of Radiology, [facility], in [place], [place] [address] [place] [phone] Devi Stafford APRN, C.NTato, M.S.N. [address] [place] [phone] 06/04/2024 12:40 PM CDT Appointment Department of Cardiovascular Diseases in [place], [place] [address] [place] [phone] Devi Stafford APRN, C.N.Yvrose, M.S.N. [address] [place] [phone] Discharge Disposition: Home or Self Care 06/04/2024 2:15 PM CDT Office Visit Department of Cardiovascular Medicine in [place], [place] [address] [place] [phone] Devi Stafford APRN, C.NTato, M.S.N. [address] [place] [phone] documented as of this encounter Procedures Procedure Name Priority Date/Time Associated Diagnosis Comments THYROID-STIMULATING HORMONE-SENSITIVE (S-TSH) Routine 03/27/2024 9:12 AM CDT Malignant Neoplasm Of Thyroid Papillary (HCC) T4 (THYROXINE), FREE, S Routine 03/27/2024 9:12 AM CDT Malignant Neoplasm Of Thyroid Papillary (HCC) documented in this encounter Results * (ABNORMAL) T4 (Thyroxine), Free (03/27/2024 9:12 AM CDT) T4 (Thyroxine), Free, S 2.4(H) 0.9 - 1.7 ng/dL 03/27/2024 10:17 AM CDT DTL Blood (Blood, Venous) 03/27/2024 9:12 AM CDT 03/27/2024 9:52 AM CDT Jass Sky APRN.N.P., D.N.P. LAB BLOOD ADD-ON [facility] [address] [place] [address] * (ABNORMAL) S-TSH (Thyroid-Stimulating Hormone - Sensitive) (03/27/2024 9:12 AM CDT) TSH, Sensitive 0.02(L) 0.3 - 4.2 mIU/L 03/27/2024 10:17 AM CDT DT Blood (Blood, Venous) 03/27/2024 9:12 AM CDT 03/27/2024 9:52 AM CDT Jass Sky APRN.N.P., D.N.P. LAB BLOOD ADD-ON Performing Organization Address City/[facility]/ZIP Co de Phone Number [facility] [address] [place], [place] [id number] [place] [address] documented in this encounter Visit Diagnoses Diagnosis Malignant Neoplasm Of Thyroid Papillary (HCC) documented in this encounter Additional Health Concerns Assessment Noted Time PHQ-9 Depression Total Score: 5 03/06/20 18 6:00 PM CDT documented as of this encounter Care Teams Blade Filer Relationship Specialty Start Date End Date Elsewhere, Pcp PCP - General Internal Medicine 09/13/22 documented as of this encounter
--- OUTSIDE RECORDS SUMMARY | 2024-04-03 08:34 | XMS_ITS | Referral Summary ---
Author Organization [facility] Address [address] [place] [address] Care Team Providers Care Steel Roller Name Role Phone Elsewhere, Pcp Primary Care Provider Unavailabl e Source Comments Patient records contain information from all sites at [facility]. For routine questions regarding patient records, call [phone] during business hours, M-F 8:00 AM - 5:00 PM Central Time. Record requests for emergency care only can be directed to [phone] at any time.[facility] Encounters Date Type Department Care Team Description 03/27/2024 8:57 AM CDT - 03/27/2024 11:59 PM CDT Hospital Encounter Department of Laboratory Medicine and Pathology, [facility] in [place], [place] [address] [place] [phone] Zara Garvey APRN, C.N.P., D.N.P. Malignant Neoplasm Of Thyroid Papillary (HCC) Discharge Disposition: Home or Self Care 03/22/2024 4:00 AM CDT - 03/22/2024 11:59 PM CDT Hospital Encounter Department of Cardiovascular Diseases in [place], [place] [address] [place] [address] Julian Garduno M.D., Ph.D. Encounter For Checking And Testing Of Cardiac Pacemaker Pulse Generator Battery Discharge Disposition: Home or Self Care 03/12/2024 Clinical Communication Department of Cardiovascular Medicine in [place], [place] [address] [place] [address] Devi Stafford APRN, C.N.P., M.S.N. Pre-visit Testing Orders 02/27/2024 Refill Division of Endocrinology in [place], [place] [address] [place] [address] Raven Holloway M.D. Med Refill 02/08/2024 Clinical Communication Division of Endocrinology in [place], [place] [address] [place] [address] Zara Garvey APRN, C.NTato, D.N.P. Thyroid Message Confirmation 02/08/2024 Orders Only Division of Endocrinology in [place], [place] [address] [place] [address] Zara Garvey APRN, C.NTripp., D.N.P. 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 Centrum (per supervisor tumbling and rolling) 10/09/2017 Active acetaminophen (TYLENOL) 500 mg tablet [...] Papillary 02/10/20 17 Anemia Of Renal Failure Awake Overnight Counselor nirmala Kidney Disease On Erythropoietin 01/30/2017 Flutter [...] = 0.6 oz pu re alcohol) occassional [facility] Utilities Answer Date Recorded In the past 12 months has e [employer], gas, oil, or water [employer] threatened to shut off services in your [...] often do you attend chur ch or jain services? 1 to 4 times per year [...] Answer Date Recorded PHQ-2 Score 5 01/25/2019 [facility] of Occupat ional Health - Occupational [...] your living situation today? I have a [facility] place to live 12/01/2023 Education Answer Date [...] Comments Blood Pressure 138/86 09/25/2023 3:03 PM MUSIC EDUCATION ADJUNCT PROFESSOR Pulse 73 09/25/2023 3:03 PM MUSIC EDUCATION ADJUNCT PROFESSOR Temperature 36.6 ??C (97.9 ??F) 04/10/2023 10:00 AM C DT Respiratory Rate 16 04/10/2023 6:41 AM CDT Oxygen Saturation 94% 04/10/2023 10:10 AM CDT Inhaled Oxygen Concentration - - Weight 72 kg (158 lb 12.8 oz) 09/25/2023 3:03 PM MUSIC EDUCATION ADJUNCT PROFESSOR Height 170.1 cm (5' 6.97) 09/25/2023 3:03 PM CS T Body Mass Index 24.89 09/25/2023 3:03 PM MUSIC EDUCATION ADJUNCT PROFESSOR Plan of Treatment Upcoming Encounters Date Type Department Care Team (Latest Contact Info) Description 05/03/2024 9:00 AM CDT Appointment Department of Radiology in [place] [phone] Devi Stafford APRN, C.N.P., M.S.N. [address] [place] [phone] Discharge Disposition: Home or Self Care 05/28/2024 10:00 AM CDT Clinical Communication Virtual Review in [place], [place] 200 [place] [address] 06/04/2024 8:20 AM CDT Appointment Department of Laboratory Medicine and Pathology, [facility] in [place], [place] [address] [place] [phone] Devi Stafford APRN, C.N.P., M.S.N. [address] [place] [phone] 06/04/2024 8:30 AM CDT Ancillary Procedure Department of Cardiovascular Medicine in [place], [place] [address] [place] [phone] Devi Stafford APRN, C.N.P., M.S.N. [address] [place] [phone] 06/04/2024 9:30 AM CDT Appointment Department of Radiology, [facility] in [place], [place] [address] [place] [phone] Devi Stafford APRN, C.NTato, M.S.N. [address] [place] [phone] 06/04/2024 12:40 PM CDT Appointment Department of Cardiovascular Diseases in [address] [phone] Devi Stafford APRN, C.N.P., M.S.N. [address] [place] [phone] Discharge Disposition: Home or Self Care 06/04/2024 2:15 PM CDT Office Visit Department of Cardiovascular Medicine in [place], [place] [address] [place] [address] Devi Stafford APRN C.N.P., M.S.N. [address] [place] [address] Medical Devices Implanted Type Area Detacker Device Identifier Shelf Expiration Date Model / Serial / Lot Lead [id number] Fire Extinguisher Installer Attain Ability - Darling [id number] Implanted:Qty: 1 on 10/09/2017 Cardiac Lead Coronary Medtronic / [id number] / Description:Device Manufactu rer - One Month. Body Location - Other. Coronary Sinus. Device Status Text - CARD [id number]. Conversions - Default Historical Implant Device Implanted:03/07 (Quantity not on file) Cardiac Valve Prosthesis Aorta Description:Device Status Te xt - CardValve. pig valve placed on 11-16-2016. Mesh Or Patch-08/14/2022 Implanted:08/14 (Quantity not on file) Mesh or Patch Stomach Description:Hernia Mesh 2 Dental Bridges Misc Other Mouth Description:Upper and Lower Dental Bridge. Pacer Ute Xt Sr Mri - Darling [id number] Implanted:Qty: 1 on 10/09/2017 Pacemaker Other/Legacy - See Implant Description Medtronic / [id number] 1S / Description:Device Manufactu rer - One Month. Body Location - Other. Left. Device Status Text - [id number]. Vascular Other-08/14/2016 Implanted:08/14 (Quantity not on file) Vascular Other Right: Arm Description:A/V fistula Procedures Procedure Name Priority Date/Time Associated Diagnosis Comments PACER REMOTE FOLLOW UP Routine 12:50 PM CDT Encounter For Checking And Testing Of Cardiac Pacemaker Pulse Generator Battery T4 (THYROXINE), FREE, S Routine 03/27/2024 9:12 AM CDT Malignant Neoplasm Of Thyroid Papillary (HCC) THYROID-STIMULATING HORMONE-SENSITIVE (S-TSH) Routine 03/27/2024 9:12 AM CDT Malignant Neoplasm Of Thyroid Papillary (HCC) VA THYROGLOBULIN SERUM Routine 8:40 AM CDT T4 [...] 12:50 PM CDT) Date Time Interrogation Session [id number] [facility] Implantable Pulse Generator Detacker Medtronic eSKY.pl LAB SYSTEM Implantable Pulse Generator Model [id number] Ute XT SR MRI [facility] Implantable Pulse Generator Serial Number [id number] [facility] Type Interrogation Session Remote [facility] Clinic Name [facility] Implantable Pulse Generator Type Pacemaker [facility] Implantable Pulse Generator Implant Date 20171009 [facility] Implantable Lead Detacker Medtronic [facility] Implantable Lead Model 4196 Attain Ability MRI SureScan [facility] Implantable Lead Serial Number [id number] [facility] Implantable Lead Implant Date 20171009 [facility] Implantable Lead Polarity Type Bipolar Lead [facility] Implantable Lead Location Detail 1 UNKNOWN [facility] Implantable Lead Special Function Lead length: 88 cm [facility] Implantable Lead Location Left Ventricle [facility] Cholo Setting Mode (NBG Code) VVIR [facility] Cholo Setting Lower Rate Limit 60 {beats}/ min [facility] Cholo Setting Maximum Sensor Rate [...] Channel Setting Pacing Anode Terminal Ring [facility] Lead Channel Setting Sensing Cathode Location Right Ventricle [facility] Lead Channel Setting Sensing Cathode Terminal Tip [facility] Lead Channel Setting Pacing Pulse Width 0.4 ms [facility] Lead Channel Setting Pacing Amplitude 3 V [facility] Lead Channel Setting Pacing Capture Mode Adaptive [facility] Zone Setting Type Category VF [facility] Zone Setting Type Category VT [facility] Zone Setting Type Category VT [facility] Zone Setting Type Category VT [facility] Zone Setting Detection Interval 360 ms [facility] Zone Setting Type Category [...] LAB SYSTEM Battery Date Time of Measurements [id number] [facility] Battery PAID SEARCH MARKETING STRATEGIST Trigger 2.625 [facility] Battery Remaining Longevity 87 mo [facility] Battery Voltage 2.99 V [facility] Cholo Statistic Date Time Start [id number] [facility] Cholo Statistic Date Time End [id number] [facility] Cholo Statistic RV Percent [...] SYSTEM Episode Statistic Recent Date Time Start [id number] [facility] Episode Statistic Recent Date [...] OF VISIT: ??Routine remote transmission. PRESENTING EGM: ??TALENT DEVELOPMENT COORDINATOR at 60 bpm VENTRICULAR ARRHYTHMIAS: ?No [...] D.N.P. LAB BLOOD ADD-ON Performing Organization Address City/[facility] Co de Phone Number [facility] [address] 200 [place] [address] * (ABNORMAL) T4 (Thyroxine), Free (03/27/2024 9:12 AM CDT) Only the most recent of2 resultswithin the time period is included. T4 (Thyroxine), Free, S 2.4(H) 0.9 - 1.7 ng/dL 03/27/2024 10:17 AM CDT DT Blood (Blood, Venous) 03/27/2024 9:12 AM CDT 03/27/2024 9:52 AM CDT Seven Sky APRNN.Marilee., D.N.P. LAB BLOOD ADD-ON Performing Organization Address City/[facility] Co de Phone Number [facility] 200 [place] [address] * (ABNORMAL) Thyroglobulin, Tumor Marker by Immunoassay [...] testing methods are immunoenzymatic assays manufactured by [email or web address] and performed on the Diurnal DXI 800. Values obtained from different assay methods or kits may be different and cannot be used interchangeably. The results cannot be interpreted as absolute evidence for the presence or absence of malignant disease. Blood 02/07/2024 8:40 AM CDT 02/08/2024 1:24 PM CDT Narrative Resulting Agency Comment Mailed In Specimen Zara Garvey APRN C.N.P., D.N.P. LAB BLOOD NON ADD-ON Performing Organization Address [facility] Co de Phone Number [facility] [address] [place] [address] [facility] [address] [place] [address] * Thyroglobulin, Tumor Marker Reflex to LC-MS/MS or Immunoassay (02/07/2024 8:40 AM CDT) Thyroglobulin Antibody, S <1.8 <1.8 IU/mL 02/08/2024 2:39 PM CDT [facility] Comment: Thyroglobulin Antibody < 1.8 IU/mL. Thyroglobulin performed by Immunoassay to follow. Blood (Blood, Venous) 02/07/2024 8:40 AM CDT 02/08/2024 1:24 PM CDT Narrative Resulting Agency Comment Mailed In Specimen Zara Garvey APRN C.N.P., D.N.P. LAB BLOOD NON ADD-ON [facility] [address] [place] [address] [facility] [address] [place] [address] * Sodium (05/02/2023 9:28 AM CDT) Sodium, S 142 135 - 145 mmol/L 05/02/2023 10:49 AM CDT DTL Blood (Blood, Venous) 05/02/2023 9:28 AM CDT 05/02/2023 10:09 AM CDT Devi Stafofrd APRN, C.N.P., M.S.N. LAB BLOOD ADD-ON [facility] [address] [place] [address], [facility] [address] [place] [address] * Potassium (05/02/2023 9:28 AM CDT) Potassium, S 4.7 3.6 - 5.2 mmol/L 05/02/2023 10:49 AM CDT DTL Blood (Blood, Venous) 05/02/2023 9:28 AM CDT 05/02/2023 10:09 AM CDT Devi Stafford APRN, C.N.P., M.S.N. LAB BLOOD ADD-ON [facility] [address] [place] [address], [facility] [address] [place] [address] * (ABNORMAL) Creatinine with Estimated GFR (05/02/2023 9:28 AM CDT) Creatinine 2.09(H) 0.74 - 1.35 mg/dL 05/02/2023 10:49 AM CDT DTL Estimated GFR (eGFR) 31(L) >=60 mL/min/BSA 05/02/2023 10:49 AM CDT DTL Comment: Estimated GFR calculated using the 2020 CKD_EPI creatinine equation. Blood (Blood, Venous) 05/02/2023 9:28 AM CDT 05/02/2023 10:09 AM CDT Devi Stafford APRN, C.N.P., M.S.N. LAB BLOOD ADD-ON [facility] [address] [place] [address], [place] DTL [facility] [address] [place] [address] from Last 3 Months or Most Recently Relevant to Health Maintenance Advance Directives For more information, please contact: [phone] Documents on File Type Date Recorded Patient Wool Hanker Expl anation Advance Directives 2002 12:00 AM [...] Answer Comments Full Code: Discussed Care Teams Steel Roller Relationship Specialty Start Date End Date Elsewhere, Pcp PCP - General Internal Medicine 09/13/22
--- OUTSIDE RECORDS SUMMARY | 2024-04-03 08:34 | XMS_ITS | Encounter Summary ---
Author Organization [facility] Address [address] [place] [address] Care Team Providers Care Senior Procurement Manager Name Role Phone Elsewhere, Pcp Primary Care Provider Unavailabl e Encounter Details Date Type Department Care Team (Late st Contact Info) Description 03/22/2024 4:00 AM CDT - 03/22/2024 11:59 PM CDT Hospital Encounter Department of Cardiovascular Diseases in [place], [place] [address] [place] [phone] Julian Garduno M.D., Ph.D. [address] [place] [phone] Encounter For Checking And Testing Of Cardiac Pacemaker Pulse Generator Battery Discharge Disposition: Home or Self Care Social History Tobacco Use Types Packs/Day Years Used Date Smoking Tobacco: Former Cigarettes 0 01/12/1955 - 01/16/1985 Smokeless Tobacco: Never Alcohol Use Standard Drinks/Week Comments Yes 10 (1 standard drink = 0.6 oz pu re alcohol) occassional [facility] Utilities Answer Date Recorded In the past 12 months has e electric, gas, oil, or water [employer] threatened to shut off services in your [...] Answer Date Recorded PHQ-2 Score 5 01/25/2019 [facility] [place] of Occupat ional Health - Occupational Stress [...] 1 tablet by mouth daily. Centrum (per tube cleaning operator) 10/09/2017 omeprazole (PriLOSEC) [address] [...] AM CDT Appointment Department of Radiology in [address] [phone] Devi Stafford APRN, C.N.P., M.S.N. [address] [place] [address] Discharge Disposition: Home or Self Care 05/28/2024 10:00 AM CDT Clinical Communication Virtual Review in [place], [place] 200 [place] [address] 06/04/2024 8:20 AM CDT Appointment Department of Laboratory Medicine and Pathology, [facility] in [place], [place] [address] [place] [phone] Devi Stafford APRN, C.N.P., M.S.N. [address] [place] [phone] 06/04/2024 8:30 AM CDT Ancillary Procedure Department of Cardiovascular Medicine in [place], [place] [address] [place] [phone] Devi Stafford APRN, C.N.P., M.S.N. [address] [place] [phone] 06/04/2024 9:30 AM CDT Appointment Department of Radiology, [facility], in [place], [place] [address] [place] [phone] Devi Stafford APRN, C.N.P., M.S.N. [address] [place] [phone] 06/04/2024 12:40 PM CDT Appointment Department of Cardiovascular Diseases in [place], [place] [address] [place] [phone] Devi Stafford APRN, C.N.P., M.S.N. [address] [place] [phone] Discharge Disposition: Home or Self Care 06/04/2024 2:15 PM CDT Office Visit Department of Cardiovascular Medicine in [place], [place] [address] [place] [phone] RiveraDevi macias APRN, C.N.P., M.S.N. [address] [place] [address] documented as of this encounter Procedures Procedure Name Priority Date/Time Associated Diagnosis Comments PACER REMOTE FOLLOW UP Routine 03/27/2024 12:50 PM CDT Encounter For Checking And Testing Of Cardiac Pacemaker Pulse Generator Battery documented in this encounter Results * PACER REMOTE FOLLOW UP (03/27/2024 12:50 PM CDT) Date Time Interrogation Session [id number] [facility] Implantable Pulse Generator Developmental Training Counselor Medtronic [facility] Implantable Pulse Generator Model [id number] [place] XT SR MRI [facility] Implantable Pulse Generator Serial Number [id number] [facility] Type Interrogation Session Remote [facility] Clinic Name [facility] Implantable Pulse Generator Type Pacemaker [facility] Implantable Pulse Generator Implant Date 20171009 [facility] Implantable Lead Developmental Training Counselor Medtronic [facility] Implantable Lead Model 4196 Attain Ability MRI SureScan [facility] Implantable Lead Serial Number [id number] [facility] [...] Setting Pacing Pulse Width 0.4 ms [facility] Lead Channel Setting Pacing Amplitude 3 V [facility] Lead Channel Setting Pacing Capture [...] Time of Measurements [facility] Battery INTERNAL MEDICINE HOSPITALIST Trigger 2.625 [facility] Battery Remaining [...] OF VISIT: ??Routine remote transmission. PRESENTING EGM: ??SPECIMEN PROCESSOR at 60 bpm VENTRICULAR ARRHYTHMIAS: ?No new events. BATTERY LONGEVITY: Expected battery longevity trends reviewed and are stable and consistent with device settings and use. SUMMARY: All device function appears normal. SIC=0. FOLLOW UP: Next routine follow-up will be in 3 months via [employer] transmission. DEVICE RN: Rain Mae RN Provider statement: This patient underwent device interrogation. I agree that the device interrogation was medically indicated to provide appropriate care and continue routine device interrogations as indicated. Julian Garduno M.D., Ph.D. CV I MPLANTABLE CARDIAC DEVICE documented in this encounter Visit Diagnoses Diagnosis Encounter For Checking And Testing Of Cardiac Pacemaker Pulse Generator Battery documented in this encounter Additional Health Concerns Assessment Noted Time PHQ-9 Depression Total Score: 5 03/06/20 18 6:00 PM CDT documented as of this encounter Care Teams Senior Procurement Manager Relationship Specialty Start Date End Date Elsewhere, Pcp PCP - General Internal Medicine 09/13/22 documented as of this encounter
--- OUTSIDE RECORDS SUMMARY | 2024-04-03 08:34 | XMS_ITS | Encounter Summary ---
Author Organization [facility] Address [address] [place] [address] Care Team Providers Care Paid Search Manager Name Role Phone Elsewhere, Pcp Primary Care Provider Unavailabl e Reason for Visit * Reason Onset Date Comments Pre-visit Testing Orders 03/12/2024 Encounter Details Date Type Department Care Team (Latest Contact Info) Description 03/12/2024 Clinical Communication Department of Cardiovascular Medicine in [place], [place] [address] [place] [address] Devi Stafford APRN, C.N.P., M.S.N. [address] [place] [phone] Pre-visit Testing Orders Social History Tobacco Use Types Packs/Day Years Used Date Smoking Tobacco: Former Cigarettes 0 01/12/1955 - 01/16/1985 Smokeless Tobacco: Never Alcohol Use Standard Drinks/Week Comments Yes 10 (1 standard drink = 0.6 oz pu re alcohol) occassional [facility] Utilities Answer Date Recorded In the past 12 months has [employer], gas, oil, or water [employer] threatened to shut off services in your [...] How often do you attend chur or taoist services? 1 to 4 times per year 08/07/2022 Do you belong to any clubs o r organizations such as pentecostal groups, unions, fraternal or athletic groups, or [...] Answer Date Recorded PHQ-2 Score 5 01/25/2019 [facility] [place] of Occupat ionri Health - Occupational Stress Questionnaire Answer Date [...] your living situation today? I have a [facility] place to live 12/01/2023 Education Answer Date [...] AM CDT Appointment Department of Radiology in [address] [phone] Devi Stafford APRN, C.N.P., M.S.N. [address] [place] [address] Discharge Disposition: Home or Self Care 05/28/2024 10:00 AM CDT Clinical Communication Virtual Review in [place], [place] [address] [place] [phone] 06/04/2024 8:20 AM CDT Appointment Department of Laboratory Medicine and Pathology, [facility] in [place], [place] [address] [place] [phone] Devi Stafford APRN, C.N.PDavis, M.S.N. [address] [place] [phone] 06/04/2024 8:30 AM CDT Ancillary Procedure Department of Cardiovascular Medicine in [place], [place] [address] [place] [phone] Devi Stafford APRN, C.N.P., M.S.N. [address] [place] [phone] 06/04/2024 9:30 AM CDT Appointment Department of Radiology, [facility], in [place], [place] [address] [place] [phone] Devi Stafford APRN, C.N.P., M.S.N. [address] [place] [phone] 06/04/2024 12:40 PM CDT Appointment Department of Cardiovascular Diseases in [place], [place] [address] [place] [phone] Devi Stafford APRN, C.N.P., M.S.N. [address] [place] [phone] Discharge Disposition: Home or Self Care 06/04/2024 2:15 PM CDT Office Visit Department of Cardiovascular Medicine in [place], [place] [address] [place] [phone] Devi Stafford APRN, C.N.PDavis, M.S.N. [address] [place] [phone] documented as of this encounter Visit Diagnoses Not on filedocumented in this encounter Additional Health Concerns Assessment Noted Time PHQ-9 Depression Total Score: 5 03/06/20 18 6:00 PM CDT documented as of this encounter Care Teams Paid Search Manager Relationship Specialty Start Date End Date Elsewhere, Pcp PCP - General Internal Medicine 09/13/22 documented as of this encounter
--- OUTSIDE RECORDS SUMMARY | 2024-04-03 08:34 | XMS_ITS ---
Author Organization [facility] Address [address] [place] [address] Care Team Providers Care Manager Skilled Name Role Phone Unavailable Unavailable Unavailable Surgery Details Not on file Complications Check Surgery Details section. Procedure Estimated Blood Loss Check Surgery Details section. Procedure Findings Check Surgery Details section. Procedure Specimens Taken Check Surgery Details section.
--- OUTSIDE RECORDS SUMMARY | 2024-04-03 08:34 | XMS_ITS | Encounter Summary ---
Author Organization [facility] Address [address] [place] [address] Care Team Providers Care Animal Caretaker Name Role Phone Elsewhere, Pcp Primary Care Provider Unavailabl e Reason for Visit * Reason Comments Med Refill Encounter Details Date Type Department Care Team ([facility] st Contact Info) Description 02/27/2024 Refill Division of Endocrinology in [place], [place] [address] [place] [phone] Raven Holloway M.D. [address] [place] [phone] Med Refill Social History Tobacco Use Types Packs/Day Years Used Date Smoking Tobacco: Former Cigarettes 0 01/12/1955 - 01/16/1985 Smokeless Tobacco: Never Alcohol Use Standard Drinks/Week Comments Yes 10 (1 standard drink = 0.6 oz pu re alcohol) occassional [facility] Utilities Answer Date Recorded In the past 12 months has [facility] [employer], oil, or water [employer] threatened to shut off services in your [...] How often do you attend chur or mu-ism services? 1 to 4 times per year [...] Answer Date Recorded PHQ-2 Score 5 01/25/2019 [facility] of Occupat ional Health - Occupational Stress [...] your living situation today? I have a [facility] place to live 12/01/2023 Education Answer [...] AM CDT Appointment Department of Radiology in [address] [phone] Devi Stafford APRN, C.N.P., M.S.N. [address] [place] [phone] Discharge Disposition: Home or Self Care 05/28/2024 10:00 AM CDT Clinical Communication Virtual Review in [place], [place] 200 [place] [address] 06/04/2024 8:20 AM CDT Appointment Department of Laboratory Medicine and Pathology, [facility] in [place], [place] [address] [place] [phone] Devi Stafford APRN, C.NTato, M.S.N. [address] [place] [phone] 06/04/2024 8:30 AM CDT Ancillary Procedure Department of Cardiovascular Medicine in [place], [place] [address] [place] [address] Devi Stafford APRN, C.N.Yvrose, M.S.N. [address] [place] [phone] 06/04/2024 9:30 AM CDT Appointment Department of Radiology, [facility], in [place], [place] [address] [place] [phone] Devi Stafford APRN, C.NTato, M.S.N. [address] [place] [phone] 06/04/2024 12:40 PM CDT Appointment Department of Cardiovascular Diseases in [place], [place] [address] [place] [phone] Devi Stafford APRN, C.N.PDavis, M.S.N. [address] [place] [phone] Discharge Disposition: Home or Self Care 06/04/2024 2:15 PM CDT Office Visit Department of Cardiovascular Medicine in [place], [place] [address] [place] [phone] Devi Stafford APRN, C.N.PDavis, M.S.N. [address] [place] [phone] documented as of this encounter Visit Diagnoses Not on filedocumented in this encounter Additional Health Concerns Assessment Noted Time PHQ-9 Depression Total Score: 5 03/06/20 18 6:00 PM CDT documented as of this encounter Care Teams Animal Caretaker Relationship Specialty Start Date End Date Elsewhere, Pcp PCP - General Internal Medicine 09/13/22 documented as of this encounter
--- OUTSIDE RECORDS SUMMARY | 2024-04-03 08:34 | XMS_ITS ---
Author Organization [facility] Address [address] [place] [address] Care Team Providers Care Intellectual Property Manager Name Role Phone Elsewhere, Pcp Primary [...] Papillary 02/10/20 17 Anemia Of Renal Failure Practice Architect nirmala Kidney Disease On Erythropoietin 01/30/2017 Flutter Atrial 01/30/2017 Current Oncology Plans No current plan information found. Past Plans Radiation Treatments * No radiation treatments are documented for this patient in [facility]. Treatments may have been administered in [...]
--- OUTSIDE RECORDS SUMMARY | 2024-04-03 08:35 | XMS_ITS | Encounter Summary ---
Author Organization [facility] Address [address] [place] [address] Care Team Providers Care Stemhole Borer Name Role Phone Elsewhere, Pcp Primary Care Provider Unavailabl e Encounter Details Date Type Department Care Team (Late st Contact Info) Description 02/08/2024 Orders Only Division of Endocrinology in [place], [place] [address] [place] [phone] Zara Garvey, ROSAURA, C.N.P., D.N.P. 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) Social History Tobacco Use Types Packs/Day Years Used Date Smoking Tobacco: Former Cigarettes 0 01/12/1955 - 01/16/1985 Smokeless Tobacco: Never Alcohol Use Standard Drinks/Week Comments Yes 10 (1 standard drink = 0.6 oz pu re alcohol) occassional [facility] Utilities Answer Date Recorded In the past 12 months has e [employer], gas, oil, or water [employer] threatened to shut off services in your [...] any clubs o r organizations such as buddhist groups, unions, fraternal or athletic groups, or [...] Answer Date Recorded PHQ-2 Score 5 01/25/2019 [facility] of Occupat ional Health - Occupational [...] your living situation today? I have a [facility] place to live 12/01/2023 Education Answer [...] AM CDT Appointment Department of Radiology in [address] [phone] Devi Stafford APRN, C.N.P., M.S.N. [address] [place] [address] Discharge Disposition: Home or Self Care 05/28/2024 10:00 AM CDT Clinical Communication Virtual Review in [place], [place] 200 [place] [address] 06/04/2024 8:20 AM CDT Appointment Department of Laboratory Medicine and Pathology, [facility] in [place], [place] [address] [place] [phone] Devi Stafford APRN, C.N.P., M.S.N. [address] [place] [phone] 06/04/2024 8:30 AM CDT Ancillary Procedure Department of Cardiovascular Medicine in [place], [place] [address] [place] [phone] Devi Stafford APRN, C.N.P., M.S.N. [address] [place] [phone] 06/04/2024 9:30 AM CDT Appointment Department of Radiology, [facility] in [place], [place] [address] [place] [phone] Devi Stafford APRN, Jass.N.P., M.S.N. [address] [place] [phone] 06/04/2024 12:40 PM CDT Appointment Department of Cardiovascular Diseases in [place], [place] [address] [place] [phone] Devi Stafford APRN, C.N.P., M.S.N. [address] [place] [phone] Discharge Disposition: Home or Self Care 06/04/2024 2:15 PM CDT Office Visit Department of Cardiovascular Medicine in [place], [place] [address] [place] [phone] Devi Stafford APRN, C.N.P., M.S.N. [address] [place] [phone] documented as of this encounter Results * (ABNORMAL) T4 (Thyroxine), Free (03/27/2024 9:12 AM CDT) T4 (Thyroxine), Free, S 2.4(H) 0.9 - 1.7 ng/dL 03/27/2024 10:17 AM CDT DTL Blood (Blood, Venous) 03/27/2024 9:12 AM CDT 03/27/2024 9:52 AM CDT Zara Garvey APRN, Jass.N.P., D.N.P. LAB BLOOD ADD-ON Performing Organization Address City/[facility]/[place] [address] * (ABNORMAL) S-TSH (Thyroid-Stimulating Hormone - Sensitive) (03/27/2024 9:12 AM CDT) TSH, Sensitive 0.02(L) 0.3 - 4.2 mIU/L 03/27/2024 10:17 AM CDT DTL Blood (Blood, Venous) 03/27/2024 9:12 AM CDT 03/27/2024 9:52 AM CDT Zara Garvey APRN, C.N.P., D.N.P. LAB BLOOD ADD-ON Performing Organization Address City[facility]/[place] [address] documented in this encounter Visit Diagnoses Diagnosis Malignant Neoplasm Of Thyroid Papillary (HCC)- Primary documented in this encounter Additional Health Concerns Assessment Noted Time PHQ-9 Depression Total Score: 5 03/06/20 18 6:00 PM CDT documented as of this encounter Care Teams Stemhole Borer Relationship Specialty Start Date End Date Elsewhere, Pcp PCP - General Internal Medicine 09/13/22 documented as of this encounter
--- OUTSIDE RECORDS SUMMARY | 2024-04-03 08:35 | XMS_ITS | Encounter Summary ---
Author Organization [facility] Address [address] [place] [address] Care Team Providers Care Financial Services Representative Name Role Phone Elsewhere, Pcp Primary Care Provider Unavailabl e Reason for Visit * Reason Onset Date Comments Thyroid Message Confirmation 02/08/2024 Encounter Details Date Type Department Care Team (Latest Contact Info) Description 02/08/2024 Clinical Communication Division of Endocrinology in [place], [place] [address] [place] [address] Zara Garvey, ROSAURA, C.N.P., D.N.P. [address] [place] [phone] Thyroid Message Confirmation Social History Tobacco Use Types Packs/Day Years Used Date Smoking Tobacco: Former Cigarettes 0 01/12/1955 - 01/16/1985 Smokeless Tobacco: Never Alcohol Use Standard Drinks/Week Comments Yes 10 (1 standard drink = 0.6 oz pu re alcohol) occassional [facility] Utilities Answer Date Recorded In the past 12 months has [employer], gas, oil, or water [employer] threatened to shut off services in your [...] often do you attend chur ch or jew services? 1 to 4 times [...] Answer Date Recorded PHQ-2 Score 5 01/25/2019 [facility] of Occupat ionri Health - Occupational Stress [...] your living situation today? I have a [facility] place to live 12/01/2023 Education [...] AM CDT Appointment Department of Radiology in [address] [phone] Devi Stafford, ROSAURA, C.N.P., M.S.N. [address] [place] [address] Discharge Disposition: Home or Self Care 05/28/2024 10:00 AM CDT Clinical Communication Virtual Review in [place], [place] 200 [place] [address] 06/04/2024 8:20 AM CDT Appointment Department of Laboratory Medicine and Pathology, [facility] in [place], [place] [address] [place] [phone] Devi Stafford APRN, C.N.Yvrose, M.S.N. [address] [place] [phone] 06/04/2024 8:30 AM CDT Ancillary Procedure Department of Cardiovascular Medicine in [place], [place] [address] [place] [phone] Devi Stafford APRN, C.NTato, M.S.N. [address] [place] [phone] 06/04/2024 9:30 AM CDT Appointment Department of Radiology, [facility] in [place], [place] [address] [place] [phone] Devi Stafford APRN, C.NTato, M.S.N. [address] [place] [phone] 06/04/2024 12:40 PM CDT Appointment Department of Cardiovascular Diseases in [place], [place] [address] [place] [phone] Devi Stafford APRN, C.N.P., M.S.N. [address] [place] [phone] Discharge Disposition: Home or Self Care 06/04/2024 2:15 PM CDT Office Visit Department of Cardiovascular Medicine in [place], [place] [address] [place] [phone] Devi Stafford APRN, C.NTato, M.S.N. [address] [place] [phone] documented as of this encounter Visit Diagnoses Not on filedocumented in this encounter Additional Health Concerns Assessment Noted Time PHQ-9 Depression Total Score: 5 03/06/20 18 6:00 PM CDT documented as of this encounter Care Teams Financial Services Representative Relationship Specialty Start Date End Date Elsewhere, Pcp PCP - General Internal Medicine 09/13/22 documented as of this encounter
== END 2024-04-02 14:15 | disposition home or self-care (01) ==
LOC: NFLDREF 04-03 08:31
PROVIDERS: PCP Family Medicine; Referring Provider Family Medicine; Visit Provider Family Medicine
DX: Z79.01 Long term (current) use of anticoagulants (principal)
CPT/HCPCS: 85610

== ENCOUNTER 2024-04-17 11:08 | Outpatient (CLI) | payer MEDICARE, SELFPAY | END 2024-04-17 11:09 | disposition home or self-care (01) | LOC: NFLDREF 04-21 14:48 | PROVIDERS: PCP Family Medicine; Referring Provider Family Medicine; Visit Provider Family Medicine | DX: I48.91 Unspecified atrial fibrillation (principal); Z79.01 Long term (current) use of anticoagulants | CPT/HCPCS: 85610 ==

== ENCOUNTER 2024-05-27 08:00 | Outpatient (CLI) | payer MEDICARE, SELFPAY ==
--- OUTSIDE RECORDS SUMMARY | 2024-05-27 11:45 | XMS_ITS | Encounter Summary ---
Author Organization [facility] Address [address] [place] [address] Care Team Providers Care Floor Steward/Stewardess Name Role Phone Elsewhere, Pcp Primary Care Provider Unavailabl e Reason for Referral * Outpatient (Routine) - Closed Specialty Diagnoses / Procedures Referred By Jennac t Referred To Contact Diagnoses Prosthesis Aortic Valve Procedures Aorta Devi Stafford APRN, C.NTato, M.S.N. 200 [place] [address] Phone: tel: fax: [facility] Region Referral ID Status Reason Start Date Expiration Date Visits Re quested Visits Authorized [id number] Closed 05/02/2023 05/01/2024 1 1 Reason for Visit * Outpatient (Routine) - Closed Specialty Diagnoses / Procedures Referred By Contac t Referred To Contact Diagnoses Prosthesis Aortic Valve Procedures Aorta Devi Stafford APRN, C.NTato, M.S.N. 200 [place] [address] Phone: tel: fax: [facility] Region Referral ID Status Reason Start Date Expiration Date Visits Re quested Visits Authorized [id number] Closed 05/02/2023 05/01/2024 1 1 Encounter Details Date Type Department Care Team (Latest Contact Info) Description 05/03/2024 8:42 AM CDT - 05/03/2024 11:59 PM CDT Hospital Encounter Department of Radiology in [place] [address] [place] [address] Devi Stafford APRN CDavisNDavisPDavis, M.S.N. [address] [place] [phone] Prosthesis Aortic Valve Discharge Disposition: Home or Self Care Social History Tobacco Use Types Packs/Day Years Used Date Smoking Tobacco: Former Cigarettes 0 01/12/1955 - 01/16/1985 Smokeless Tobacco: Never Alcohol Use Standard Drinks/Week Comments Yes 10 (1 standard drink = 0.6 oz pu re alcohol) occassional [facility] Utilities Answer Date Recorded In the past 12 months has e [employer], gas, oil, or water [employer] threatened to shut off services in your [...] week 08/07/2022 How often do you attend [facility] or moravian services? 1 to 4 times [...] Answer Date Recorded PHQ-2 Score 5 01/25/2019 [facility] - Occupational Stress Questionnaire Answer Date Recorded [...] Assigned at Male 01/05/2018 4:12 PM CDT Legal Sex Male 1:37 PM CDT Gender Identity Male 01/05/2018 4:12 PM CDT Sexual Orientation Straight 01/05/2018 4: 12 PM CDT documented as of this encounter Medications at Time of Discharge acetaminophen (TYLENOL) 500 mg tablet Take 500-1,000 [...] 2 tablets by mouth daily with breakfast. diphenhydrAMINE-a cetaminophen (TYLENOL PM) 25-500 mg per tablet Take [...] 1 tablet by mouth daily. Centrum (per advertising teacher) 10/09/2017 omeprazole (PriLOSEC) [address] capsuleIndication s:Gastroesophagea l Reflux Disease TAKE ONE CAPSULE BY MOUTH ONE TIME DAILY FOR ACID REFLUX 100 capsule 3 05/21/2018 vitamin B complex-folic acid (B Complex 1, with folic acid,) 0.4 mg tablet Take 1 tablet by mouth daily. 12/16/2016 warfarin (COUMADIN) 1 mg tablet Take 4-5 tablets by mouth as directed. 4 tabs on Monday/Monday/ Monday 3 tabs all other days 10/09/2017 documented as of this encounter Plan of Treatment Upcoming Encounters Date Type Department Care Team (Latest Contact Info) Description 05/28/2024 10:00 AM CDT Clinical Communication Virtual Review in [place], [place] 200 [place] [address] 06/04/2024 8:20 AM CDT Appointment Department of Laboratory Medicine and Pathology, [place], [place] [address] [place] [phone] Devi Stafford APRN, C.N.P., M.S.N. [address] [place] [phone] 06/04/2024 8:30 AM CDT Ancillary Procedure Department of Cardiovascular Medicine in [place], [place] [address] [place] [phone] Devi Stafford APRN C.N.P., M.S.N. [address] [place] [phone] 06/04/2024 9:30 AM CDT Appointment Department of Radiology, [facility], in [place], [place] [address] [place] [phone] Devi Stafford APRN, C.NTato, M.S.N. [address] [place] [phone] 06/04/2024 12:40 PM CDT Appointment Department of Cardiovascular Diseases in [place], [place] [address] [place] [phone] Devi Stafford APRN, C.N.P., M.S.N. [address] [place] [phone] Discharge Disposition: Home or Self Care 06/04/2024 2:15 PM CDT Office Visit Department of Cardiovascular Medicine in [place], [place] [address] [place] [phone] Devi Stafford APRN, C.NTripp., M.S.N. [address] [place] [phone] 06/18/2024 2:30 PM OYSTER GRADER Office Visit Division of Endocrinology in [place], [place] [address] [place] [phone] Ciara Hebert M.D. [address] [place] [phone] documented as of this encounter Procedures Procedure Name Priority Date/Time Associated Diagnosis Comments US AORTA RAD - Routine (most inpatients and all outpatients) 05/03/2024 9:28 AM CDT Prosthesis Aortic Valve documented in this encounter Results * US Aorta (05/03/2024 9:28 AM CDT) Anatomical Region Laterality Modality Abdomen, Pelvis, Ultrasound RST LOS, Ultrasound ARZ LOS, Ultrasound FLA LOS, Procedural, Vascular Interventional NWWI LOS N/A Ultrasound Impressions 05/03/2024 9:33 AM CDT 1. Aneurysmal distal aorta measuring 4.2 cm, previously 4.0 cm. 2. 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 Narrative 05/03/2024 9:33 AM CDT REVISED REPORT: EXAM: US AORTA Exam performed with color and spectral Doppler analysis. COMPARISON: Aorta ultrasound 04/25/2023, 06/14/2022, 07/27/2021. FINDINGS: Proximal aorta: 3.0 x 2.9 cm, previously 3.0 x 2.9 cm. Mid aorta: 2.0 x 2.0 cm, previously 2.1 x 1.9 cm. Distal aorta: 4.2 x 4.1 cm, previously 4.0 x 4.0 cm. Right common iliac artery: 1.7 x 1.5 cm, previously 1.6 x 1.6 cm. Left common iliac artery: 1.3 x 1.1 cm, previously 1.2 x 1.2 cm. Procedure Note Aimee Burns D.O. - 05/07/2024 REVISED REPORT: EXAM: US AORTA Exam performed with color and spectral Doppler analysis. COMPARISON: Aorta ultrasound 04/25/2023, 06/14/2022, 07/27/2021. FINDINGS: Proximal aorta: 3.0 x 2.9 cm, previously 3.0 x 2.9 cm. Mid aorta: 2.0 x 2.0 cm, previously 2.1 x 1.9 cm. Distal aorta: 4.2 x 4.1 cm, previously 4.0 x 4.0 cm. Right common iliac artery: 1.7 x 1.5 cm, previously 1.6 x 1.6 cm. Left common iliac artery: 1.3 x 1.1 cm, previously 1.2 x 1.2 cm. IMPRESSION: 1. Aneurysmal distal aorta measuring 4.2 cm, previously 4.0 cm. 2. 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 us Devi Stafford APRN, C.N.P., M.S.N. [facility] P ROCEDURES Edited Result - Final documented in this encounter Visit Diagnoses Diagnosis Prosthesis Aortic Valve documented in this encounter Additional Health Concerns Assessment Noted Time PHQ-9 Depression Total Score: 5 07/24/20 18 6:00 PM CDT documented as of this encounter Care Teams Floor Steward/Stewardess Relationship Specialty Start Date End Date Elsewhere, Pcp PCP - General Internal Medicine 09/13/22 documented as of this encounter
--- OUTSIDE RECORDS SUMMARY | 2024-05-27 11:45 | XMS_ITS | Encounter Summary ---
Author Organization [facility] Address [address] [place] [address] Care Team Providers Care Marketing Information Manager Name Role Phone Elsewhere, Pcp Primary Care Provider Unavailabl e Encounter Details Date Type Department Care Team (Late st Contact Info) Description 04/03/2024 Clinical Communication Division of Endocrinology in [place], [place] [address] [place] [phone] Zara Garvey, ROSAURA, C.N.P., D.N.P. [address] [place] [phone] Social History Tobacco Use Types Packs/Day Years Used Date Smoking Tobacco: Former Cigarettes 0 01/12/1955 - 01/16/1985 Smokeless Tobacco: Never Alcohol Use Standard Drinks/Week Comments Yes 10 (1 standard drink = 0.6 oz pu re alcohol) occassional [facility] Utilities Answer Date Recorded In the past 12 months has [facility] [employer], oil, or water [employer] threatened to shut off services in your [...] How often do you attend chur or yarsanism services? 1 to 4 times per year [...] Answer Date Recorded PHQ-2 Score 5 01/25/2019 [facility] Occupat ional Health - Occupational Stress [...] your living situation today? I have a [facility] place to live 12/01/2023 Education Answer Date [...] AM CDT Clinical Communication Virtual Review in [place], [place] 200 [place] [phone] 06/04/2024 8:20 AM CDT Appointment Department of Laboratory Medicine and Pathology, [facility], in [place], [place] [address] [place] [phone] Devi Stafford APRN, C.N.P., M.S.N. [address] [place] [phone] 06/04/2024 8:30 AM CDT Ancillary Procedure Department of Cardiovascular Medicine in [place], [place] [address] [place] [phone] Devi Stafford APRN, C.NTato, M.S.N. [address] [place] [phone] 06/04/2024 9:30 AM CDT Appointment Department of Radiology, [facility], in [place], [place] [address] [place] [address] Devi Stafford APRN, C.NTato, M.S.N. [address] [place] [phone] 06/04/2024 12:40 PM CDT Appointment Department of Cardiovascular Diseases in [place], [place] [address] [place] [phone] Devi Stafford APRN, C.NTato, M.S.N. [address] [place] [phone] Discharge Disposition: Home or Self Care 06/04/2024 2:15 PM CDT Office Visit Department of Cardiovascular Medicine in [place], [place] [address] [place] [phone] Devi Stafford APRN, C.NTato, M.S.N. [address] [place] [phone] 06/18/2024 2:30 PM SYSTEM AUDITOR Office Visit Division of Endocrinology in [place], [place] [address] [place] [phone] Ciara Hebert M.D. [address] [place] [phone] documented as of this encounter Visit Diagnoses Not on filedocumented in this encounter Additional Health Concerns Assessment Noted Time PHQ-9 Depression Total Score: 5 03/06/20 18 6:00 PM CDT documented as of this encounter Care Teams Marketing Information Manager Relationship Specialty Start Date End Date Elsewhere, Pcp PCP - General Internal Medicine 09/13/22 documented as of this encounter
--- OUTSIDE RECORDS SUMMARY | 2024-05-27 11:45 | XMS_ITS ---
Author Organization [facility] Address [address] [place] [address] Care Team Providers Care Jailkeeper Name Role Phone Elsewhere, Pcp Primary Care Provider Unavailabl e Active Problems * This document contains information received from the source organization and may not represent a complete record from that organization. 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 Past Plans Radiation Treatments * No radiation treatments are documented for this patient in [facility]. Treatments may have been administered in [...]
--- OUTSIDE RECORDS SUMMARY | 2024-05-27 11:45 | XMS_ITS | Encounter Summary ---
Author Organization [facility] Address [address] [place] [phone] Care Team Providers Care Manager Asset Name Role Phone Elsewhere, Pcp Primary Care Provider Unavailabl e Encounter Details Date Type Department Care Team (Late st Contact Info) Description 03/22/2024 4:00 AM CDT - 03/22/2024 11:59 PM CDT Hospital Encounter Department of Cardiovascular Diseases in [place], [place] [address] [place] [phone] Julian Garduno M.D., Ph.D. [address] [place] [phone] Encounter For Checking And Testing Of Cardiac Pacemaker Pulse Generator Battery Discharge Disposition: Home or Self Care Social History Tobacco Use Types Packs/Day Years Used Date Smoking Tobacco: Former Cigarettes 0 01/12/1955 - 01/16/1985 Smokeless Tobacco: Never Alcohol Use Standard Drinks/Week Comments Yes 10 (1 standard drink = 0.6 oz pu re alcohol) occassional [facility] Utilities Answer Date Recorded In the past 12 months has e electric, gas, oil, or water [employer] threatened to shut off services in your [...] How often do you attend chur or sikh services? 1 to 4 times per year 08/07/2022 Do you belong to any clubs o r organizations such as druze groups, unions, fraternal or athletic groups, or [...] Answer Date Recorded PHQ-2 Score 5 01/25/2019 [facility] Occupat ional Health - Occupational Stress [...] your living situation today? I have a [facility] place to live 12/01/2023 Education Answer [...] 1 tablet by mouth daily. Centrum (per blasting coal miner) 10/09/2017 omeprazole (PriLOSEC) [address] capsuleIndication [...] AM CDT Clinical Communication Virtual Review in [place], [place] [address] [place] [phone] 06/04/2024 8:20 AM CDT Appointment Department of Laboratory Medicine and Pathology, [facility], in [place], [place] [address] [place] [phone] Devi Stafford APRN, C.N.P., M.S.N. [address] [place] [phone] 06/04/2024 8:30 AM CDT Ancillary Procedure Department of Cardiovascular Medicine in [place], [place] [address] [place] [address] Devi Stafford APRN, C.N.P., M.S.N. [address] [place] [phone] 06/04/2024 9:30 AM CDT Appointment Department of Radiology, [facility], in [place], [place] [address] [place] [phone] Devi Stafford APRN, C.N.P., M.S.N. [address] [place] [phone] 06/04/2024 12:40 PM CDT Appointment Department of Cardiovascular Diseases in [place], [place] [address] [place] [address] Devi Stafford APRN, C.NTato, M.S.N. [address] [place] [phone] Discharge Disposition: Home or Self Care 06/04/2024 2:15 PM CDT Office Visit Department of Cardiovascular Medicine in [place], [place] [address] [place] [phone] Devi Stafford APRN, C.NTato, M.S.N. [address] [place] [phone] 06/18/2024 2:30 PM SENIOR SOFTWARE DEVELOPMENT ENGINEER Office Visit Division of Endocrinology in [place], [place] [address] [place] [phone] Ciara Hebert M.D. [address] [place] [address] documented as of this encounter Procedures Procedure Name Priority Date/Time Associated Diagnosis Comments PACER REMOTE FOLLOW UP Routine 03/27/2024 12:50 PM CDT Encounter For Checking And Testing Of Cardiac Pacemaker Pulse Generator Battery documented in this encounter Results * PACER REMOTE FOLLOW UP (03/27/2024 12:50 PM CDT) Date Time Interrogation Session [id number] [facility] Implantable Pulse Generator Mimeograph Operator Medtronic [facility] Implantable Pulse Generator Model [id number] [place] XT SR MRI [facility] Implantable Pulse Generator Serial Number [id number] [facility] Type Interrogation Session Remote [facility] Clinic Name [facility] Implantable Pulse Generator Type Pacemaker [facility] Implantable Pulse Generator Implant Date [id number] [facility] Implantable Lead Mimeograph Operator Medtronic [facility] Implantable Lead Model [id number] Attain Ability MRI SureScan [facility] Implantable Lead Serial Number [id number] [facility] Implantable Lead Implant [...] Time of Measurements [facility] Battery FLOWER PICKER Trigger 2.625 [facility] Battery Remaining [...] SYSTEM Episode Statistic Total Date Time Start [id number] [facility] Episode Statistic Total Date Time End [facility] Episode Statistic Total Date Time Start [id number] [facility] Episode Statistic Total Date Time End [facility] Episode Statistic Total Date Time Start [id number] [facility] Episode Statistic Total Date Time End [facility] Anatomical Region Laterality Modality Other 03/21/2024 11:5 8 PM CDT Narrative 03/28/2024 2:20 PM CDT PURPOSE OF VISIT: ??Routine remote transmission. PRESENTING EGM: ??GREENS PICKER at 60 bpm VENTRICULAR ARRHYTHMIAS: ?No new [...] and continue routine device interrogations as indicated. us Julian Garduno M.D., Ph.D. CV IMPLANTAB LE CARDIAC DEVICE Final Result documented in this encounter Visit Diagnoses Diagnosis Encounter For Checking And Testing Of Cardiac Pacemaker Pulse Generator Battery documented in this encounter Additional Health Concerns Assessment Noted Time PHQ-9 Depression Total Score: 5 03/06/20 18 6:00 PM CDT documented as of this encounter Care Teams Manager Asset Relationship Specialty Start Date End Date Elsewhere, Pcp PCP - General Internal Medicine 09/13/22 documented as of this encounter
--- OUTSIDE RECORDS SUMMARY | 2024-05-27 11:45 | XMS_ITS | Encounter Summary ---
Author Organization [facility] Address [address] [place] [phone] Care Team Providers Care Poultry Farm Manager Name Role Phone Elsewhere, Pcp Primary Care Provider Unavailabl e Reason for Visit * Outpatient (Routine) - Closed Specialty Diagnoses / Procedures Referred By Jessica patel Referred To Contact Vascular Medicine Diagnoses Aneurysm Abdominal Aortic Personal History Procedures Vascular Medicine - General eConsult Devi Stafford, ROSAURA, C.N.P., M.S.N. [address] [place] [phone] Phone: tel: fax: [facility] Referral ID Status Reason Start Date Expiration Date Visits Re quested Visits Authorized [id number] Closed 05/07/2024 05/07/2025 1 1 Encounter Details Date Type Department Care Team (Latest Contact Info) Description 05/09/2024 8:00 AM CDT Internal E-Consult Department of Vascular Medicine in [place], [place] [address] [place] [phone] Fran Gracia M.D. [address] [place] [phone] Abdominal Aortic Aneurysm Without Rupture Unspecified (HCC) (Primary Dx); Aneurysm Abdominal Aortic Personal History Social History Tobacco Use Types Packs/Day Years Used Date Smoking Tobacco: Former Cigarettes 0 01/12/1955 - 01/16/1985 Smokeless Tobacco: Never Alcohol Use Standard Drinks/Week Comments Yes 10 (1 standard drink = 0.6 oz pu re alcohol) occassional [facility] Utilities Answer Date Recorded In the past 12 months has th e [employer], [employer], oil, or water [employer] threatened to shut off services in your [...] often do you attend chur ch or anglican services? 1 to 4 times per year [...] PHQ-2 Score 5 01/25/2019 [facility] [place] [facility] - Occupational Stress Questionnaire Answer Date [...] your living situation today? I have a [facility] place to live 12/01/2023 Education Answer [...] PM CDT documented as of this encounter Consult Notes * Fran Gracia M.D. - 05/07/2024 8:00 AM CDT Referring Physician: Devi Stafford APRN, C.N.P., M.S.N. SUBJECTIVE The patient has been neither seen nor examined; this consultation is based entirely upon information available in the [facility] electronic medical record. CHIEF COMPLAINT / REASON FOR VISIT increased in size in abdominal aorta ? need for further testing/intervention HISTORY OF PRESENT ILLNESS Mr. Kearney is a 83 y.o. male with known small AAA. Briefly: The patient has a known small abdominal aortic aneurysm which has been followed by annual ultrasound. It was noted to be 4 cm in diameter on 06/14/2022, 4 cm on 04/25/2023, and most recently 4.2 cm on 05/03/2024. 05/03/2024 (US): 1. Aneurysmal distal aorta measuring 4.2 cm, previously 4.0 cm. 2. 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 Because of the 0.2 cm increase since the last study, I have been asked to comment on the need for additional evaluation: 05/03/2024 (Patient message from Ms. Stafford): I reviewed the ultrasound of your aorta. It increased in size from 4.0 cm to 4.2 cm. I am having our vascular Medicine team review this in 2 days to give recommendations on if anything needs to be done. Once we do the I will let you know they are recommendations. The aneurysm appears to be completely asymptomatic. The patient has a variety of additional medicalissues that include atrial fibrillation, CHF, prosthetic aortic valve, chronic renal disease, hypertension, and other issues. He takes both warfarin and aspirin. Labs: His most recent labs are from 2022 and include a creatinine of 2.09, GFR of 31, and normal platelets. All available relevant information was reviewed. ASSESSMENT / PLAN #1 Small abdominal aortic aneurysm 1st, it should be noted that the current ultrasound report suggests that the right common iliac artery is 7 cm. This is a typo; it is actually ???1.7?? cm. I have contacted the radiologist who read the study and informed her of the typographical error. With regard to the abdominal aortic aneurysm, typical aneurysm growth is 1-2 mm/year (sometimes even more). This aneurysm has grown 1-2 mm the year for the past 2 years in his therefore behaving ???normally?? . It also remains small; we generally consider repairing aneurysm at this location when they approach a size of 5.5 cm (or when they produce symptoms, grow rapidly, or have atypical shapes or appearance). This aneurysm has none of these features, and if it continues to grow at its current rate, it will not approach a size threshold requiring intervention for another 10 years or more. Given this, continued ultrasound surveillance is clearly the best option. In fact, in view of the minimal size exchange teller the last 2 years, it is probably reasonable to wait another 2 years before doing the next follow-up surveillance study. If aneurysm growth remains minimal, studies every 2-3 years may be reasonable, at least until it reaches a size greater than 5 cm at which point more frequent follow-up may be appropriate. Obviously, if the patient develops symptoms suggestive of aneurysmal involvement, he should be promptly assessed by vascular specialist. Fran Gracia M.D. documented in this encounter Plan of Treatment Upcoming Encounters Date Type Department Care Team (Latest Contact Info) Description 05/28/2024 10:00 AM CDT Clinical Communication Virtual Review in [place], [place] 200 [place] [phone] 06/04/2024 8:20 AM CDT Appointment Department of Laboratory Medicine and Pathology, [facility] in [place], [place] [address] [place] [phone] Devi Stafford APRN, C.N.P., M.S.N. [address] [place] [phone] 06/04/2024 8:30 AM CDT Ancillary Procedure Department of Cardiovascular Medicine in [place], [place] [address] [place] [phone] Devi Stafford APRN, C.N.P., M.S.N. [address] [place] [phone] 06/04/2024 9:30 AM CDT Appointment Department of Radiology, [facility], in [place], [place] [address] [place] [address] Devi Stafford APRN, C.N.P., M.S.N. [address] [place] [phone] 06/04/2024 12:40 PM CDT Appointment Department of Cardiovascular Diseases in [place], [place] [address] [place] [phone] Devi Stafford APRN, C.N.P., M.S.N. [address] [place] [phone] Discharge Disposition: Home or Self Care 06/04/2024 2:15 PM CDT Office Visit Department of Cardiovascular Medicine in [place], [place] [address] [place] [phone] Devi Stafford APRN, C.N.P., M.S.N. [address] [place] [phone] 06/18/2024 2:30 PM ABRASIVE SAWYER Office Visit Division of Endocrinology in [place], [place] [address] [place] [phone] Ciara Hebert M.D. [address] [place] [phone] documented as of this encounter Visit Diagnoses Diagnosis Abdominal Aortic Aneurysm Without Rupture Unspecified (HCC)- Primary Aneurysm Abdominal Aortic Personal History documented in this encounter Additional Health Concerns Assessment Noted Time PHQ-9 Depression Total Score: 5 03/06/20 18 6:00 PM CDT documented as of this encounter Care Teams Poultry Farm Manager Relationship Specialty Start Date End Date Elsewhere, Pcp PCP - General Internal Medicine 09/13/22 documented as of this encounter
--- OUTSIDE RECORDS SUMMARY | 2024-05-27 11:45 | XMS_ITS | Clinical Summary ---
Author Organization [facility] Address [address] [place] [address] Care Team Providers Care Animal Chiropractor Name Role Phone Elsewhere, Pcp Primary Care Provider Unavailabl e Source Comments Patient records contain information from all sites at [facility]. For routine questions regarding patient records, call [phone] during business hours, M-F 8:00 AM - 5:00 PM Central Time. Record requests for emergency care only can be directed to [phone] at any time.[facility] Allergies Active Allergy Reactions Criticality Noted Date Comments Iodinated Contrast Media Other (see comments) High 10/05/2017 Renal Failure, Unknown type of dye Lorazepam Other (see comments) 10/05/2017 Methimazole Other (see comments) 03/26/2012 Had liver tests increase significantly Trazodone Anxiety 06/01/2017 per family/ patient, on previous hospita Medications * This document contains information received from the source organization and may not represent a complete record from that organization. aspirin [address] tablet Take 1 tablet by mouth daily. for heart failure. Refills per PCP 7 Active warfarin (COUMADIN) 1 mg tablet Take 4-5 tablets by mouth as directed. 4 tabs on Monday/ y/Monday 3 tabs all other days 8 Active furosemide (LASIX) 20 mg tablet Take 1 tablet by mouth daily. 8 Active melatonin 3 mg tablet Take 1 tablet by mouth at bedtime. 7 Active multivitamin tablet Take 1 tablet by mouth daily. Centrum (per pharmacist) 8 Active acetaminophen (TYLENOL) 500 mg tablet Take 500-1,000 mg by mouth every 6 (six) hours as needed for pain. Active omeprazole (PriLOSEC) [address] capsuleIndicaagnes ns:Gastroesophag eal Reflux Disease TAKE ONE CAPSULE BY MOUTH ONE TIME DAILY FOR ACID REFLUX 100 capsule 3 8 Active isosorbide mononitrate (IMDUR) 30 mg 24 hr tablet Take 1 tablet (30 mg total) by mouth at bedtime. 90 tablet 3 8 Active calcium citrate-vitamin D3 (CITRACAL+D) 315-200 mg-unit per tablet Take 2 tablets by mouth daily with breakfast. Active amoxicillin (AMOXIL) 500 mg capsule Take 4 caps (2000 mg) 1 hour prior to procedure. 12 capsule 11 9 Active Additional Information Patient taking differently: 500 mg oral As needed, For Dental Procedures, Reported on 01/30/2023 atorvastatin (LIPITOR) 10 mg tablet TAKE ONE TABLET BY MOUTH DAILY FOR HIGH CHOLESTEROL 90 tablet 3 9 Active Klor-Con M20 20 mEq ER tablet Take 20 mEq by mouth daily. 0 Active hydrALAZINE (APRESOLINE) 25 mg tablet TAKE 1 TABLET BY MOUTH THREE TIMES A DAY 270 tablet 3 3 Active carvediloL (COREG) 25 mg tablet Take 1 tablet (25 mg total) by mouth 2 (two) times a day with meals. 180 tablet 3 3 Active vitamin B complex-folic acid (B Complex 1, with folic acid,) 0.4 mg tablet Take 1 tablet by mouth daily. 7 Active diphenhydrAMINE- acetaminophen (TYLENOL PM) 25-500 mg per tablet Take 1 tablet by mouth at bedtime as needed. 7 Active levothyroxine (SYNTHROID, LEVOTHROID) 200 mcg tablet Take 1 tablet (200 mcg total) by mouth every morning before breakfast. 90 tablet 3 4 Active Active Problems Problem Noted Date Diagnosed Date Abdominal Aortic [...] Papillary 02/10/20 17 Anemia Of Renal Failure Financial Sales Consultant nirmala Kidney Disease On Erythropoietin 01/30/2017 Flutter [...] Encounters Date Type Department Care Team Description 05/09/2024 8:00 AM CDT Internal E-Consult Department of Vascular Medicine in [place], [place] [address] [place] [address] Fran Gracia M.D. Abdominal Aortic Aneurysm Without Rupture Unspecified (HCC) (Primary Dx); Aneurysm Abdominal Aortic Personal History 05/07/2024 Orders Only Department of Cardiovascular Medicine in [place], [place] [address] [place] [address] Devi Stafford APRN, C.N.P., M.S.N. Aneurysm Abdominal Aortic Personal History (Primary Dx) 05/03/2024 8:42 AM CDT - 05/03/2024 11:59 PM CDT Hospital Encounter Department of Radiology in [address] [phone] Devi Stafford APRN, C.NTripp., M.S.N. Prosthesis Aortic Valve Discharge Disposition: Home or Self Care 04/03/2024 Clinical Communication Division of Endocrinology in [place], [place] [address] [place] [phone] Zara Garvey APRN, C.N.P., D.N.P. 03/27/2024 8:57 AM CDT - 03/27/2024 11:59 PM CDT Hospital Encounter Department of Laboratory Medicine and Pathology, [facility] in [place], [place] [address] [place] [phone] Zara Garvey APRN, C.N.Marilee., D.N.P. Malignant Neoplasm Of Thyroid Papillary (HCC) Discharge Disposition: Home or Self Care 03/22/2024 4:00 AM CDT - 03/22/2024 11:59 PM CDT Hospital Encounter Department of Cardiovascular Diseases in [place], [place] [address] [place] [phone] Julian Garduno M.D., Ph.D. Encounter For Checking And Testing Of Cardiac Pacemaker Pulse Generator Battery Discharge Disposition: Home or Self Care 03/12/2024 Clinical Communication Department of Cardiovascular Medicine in [place], [place] [address] [place] [phone] Devi Stafford APRN, C.N.P., M.S.N. Pre-visit Testing Orders 02/27/2024 Refill Division of Endocrinology in [place], [place] [address] [place] [phone] Raven Holloway M.D. Med Refill from Last 3 Months Immunizations Name Administration Dates Next Due influenza trivalent high dose (HD)(PF) 7,05/16/2016 Family History Medical History Relation Name Comments [...] = 0.6 oz pu re alcohol) occassional [facility] Utilities Answer Date Recorded In the past 12 months has e [employer], gas, oil, or water company threatened to [...] week 08/07/2022 How often do you attend [facility] or scientology services? 1 to 4 times [...] 5 01/25/2019 [facility] - Occupational Stress Questionnaire [...] money to buy more. Never true 12/01/19 Within the past 12 months, t he [...] Comments Blood Pressure 138/86 09/25/2023 3:03 PM FOOD MIXER REPAIRER Pulse 73 09/25/2023 3:03 PM FOOD MIXER REPAIRER Temperature 36.6 ??C (97.9 ??F) 04/10/2023 10:00 AM C DT Respiratory Rate 16 04/10/2023 6:41 AM CDT Oxygen Saturation 94% 04/10/2023 10:10 AM CDT Inhaled Oxygen Concentration - - Weight 72 kg (158 lb 12.8 oz) 09/25/2023 3:03 PM FOOD MIXER REPAIRER Height 170.1 cm (5' 6.97) 09/25/2023 3:03 PM CS T Body Mass Index 24.89 09/25/2023 3:03 PM FOOD MIXER REPAIRER Plan of Treatment Upcoming Encounters Date Type Department Care Team (Latest Contact Info) Description 05/28/2024 10:00 AM CDT Clinical Communication Virtual Review in [place], [place] [address] [place] [address] 06/04/2024 8:20 AM CDT Appointment Department of Laboratory Medicine and Pathology, [facility], in [place], [place] [address] [place] [phone] Devi Stafford APRN, C.N.P., M.S.N. [address] [place] [phone] 06/04/2024 8:30 AM CDT Ancillary Procedure Department of Cardiovascular Medicine in [place], [place] [address] [place] [phone] Devi Stafford APRN, C.N.P., M.S.N. [address] [place] [phone] 06/04/2024 9:30 AM CDT Appointment Department of Radiology, [facility], in [place], [place] [address] [place] [address] Devi Stafford APRN, C.NDavisPDavis, M.S.N. [address] [place] [phone] 06/04/2024 12:40 PM CDT Appointment Department of Cardiovascular Diseases in [place], [place] [address] [place] [address] Devi Stafford APRN, C.N.P., M.S.N. [address] [place] [phone] Discharge Disposition: Home or Self Care 06/04/2024 2:15 PM CDT Office Visit Department of Cardiovascular Medicine in [place], [place] [address] [place] [phone] Devi Stafford APRN, C.N.P., M.S.N. [address] [place] [phone] 06/18/2024 2:30 PM FOOD MIXER REPAIRER Office Visit Division of Endocrinology in [place], [place] [address] [place] [phone] Ciara Hebert M.D. [address] [place] [phone] Health Maintenance Due Date Last Done Comments RSV vaccine - (32-3 6 weeks) or 60+ years (1 - 1-dose 75+ series) 2016 Depression Screening (Annual PHQ-2) 08/14/2023 Fall Risk Screen (Annual) 08/14/2023 COVID-19 Vaccine (5 - 2023-2 5 season) 2024 12/27/2021, 06/09/2021, 10/22/2020, Additional history exists Creatinine Level (Kidney Fun [...] 05/13/2019, 01/21/2019 Medical Devices Implanted Type Area Head Usher Device Identifier Shelf Expiration Date Model / Serial / Lot Lead [id number] Senior Climate Advisor Attain Ability - Darling [id number] Implanted:Qty: 1 on 10/09/2017 Cardiac Lead Coronary Medtronic / [id number] / Description:Device Manufactu [employer] Body Location - Other. Coronary Sinus. Device Status Text - CARD [id number]. Conversions - Default Historical Implant Device Implanted:03/07 (Quantity not on file) Cardiac Valve Prosthesis Aorta Description:Device Status Te xt - CardValve. pig valve placed on 11-16-2016. Mesh Or Patch-08/14/2022 Implanted:08/14 (Quantity not on file) Mesh or Patch Stomach Description:Hernia Mesh 2 Dental Bridges Misc Other Mouth Description:Upper and Lower Dental Bridge. Pacer [place] Xt Sr Mri - Darling [id number] Implanted:Qty: 1 on 10/09/2017 Pacemaker Other/Legacy - See Implant Description Medtronic / [id number] 1S / Description:Device Manufactu [employer]. Body Location - Other. Left. Device Status Text - [id number]. Vascular Other-08/14/2016 Implanted:08/14 (Quantity not on file) Vascular Other Right: Arm Description:A/V fistula Procedures Procedure Name Priority Date/Time Associated Diagnosis Comments US AORTA RAD - Routine (most inpatients and all outpatients) 05/03/2024 9:28 AM CDT Prosthesis Aortic Valve PACER REMOTE FOLLOW UP Routine 03/27/2024 12:50 PM CDT Encounter For Checking And Testing Of Cardiac Pacemaker Pulse Generator Battery T4 (THYROXINE), FREE, S Routine 03/27/2024 9:12 AM CDT Malignant Neoplasm Of Thyroid Papillary (HCC) THYROID-STIMULATIN G HORMONE-SENSITIVE (S-TSH) Routine 03/27/2024 9:12 AM CDT Malignant Neoplasm Of Thyroid Papillary (HCC) SODIUM, S/P Routine 05/02/2023 9:28 AM CDT Prosthesis Aortic Valve POTASSIUM, S/P Routine 05/02/2023 9:28 AM CDT Prosthesis Aortic Valve CREATININE WITH EGFR, S/P Routine 05/02/2023 9:28 AM CDT Prosthesis Aortic Valve from Last 3 Months or Most Recently Relevant to Health Maintenance Results * US Aorta (05/03/2024 9:28 AM [...] 1.6cm. us Devi Stafford APRN, C.N.P., M.S.N. [facility] P ROCEDURES Edited Result - Final * PACER REMOTE FOLLOW UP (03/27/2024 12:50 PM CDT) Date Time Interrogation Session [id number] [facility] Implantable Pulse Generator Head Usher [employer] [facility] Implantable Pulse Generator Model [id number] [place] XT SR MRI [facility] Implantable Pulse Generator Serial Number [id number] [facility] Type Interrogation Session Remote [facility] Clinic Name [facility] Gaastra [facility] Implantable Pulse Generator Type Pacemaker [facility] Implantable Pulse Generator Implant Date [id number] [facility] Implantable Lead Head Usher Medtronic [facility] Implantable Lead Model [id number] Attain Ability MRI SureScan [facility] Implantable Lead Serial Number [id number] [facility] [...] Channel Setting Sensing Anode Location Right Ventricle [facility] [...] Channel Setting Pacing Anode Location Right Ventricle [facility] [...] LAB SYSTEM Zone Setting Type Category VF [facility] [...] SYSTEM Zone Setting Type Category ATRIAL_FIBRILLATI ON [facility] Zone Setting Type Category AT/AF [facility] Lead Channel Impedance Value 855 ohm [facility] Lead Channel Impedance Value 361 ohm [facility] Lead Channel Sensing Intrinsic Amplitude 19.75 mV [facility] Lead Channel Sensing Intrinsic Amplitude 19.75 mV [facility] Lead Channel Pacing Threshold Amplitude 1.5 V [facility] Lead Channel Pacing Threshold Pulse Width 0.4 ms [facility] Battery Date Time of Measurements [id number] [facility] Battery AFTER SCHOOL PROGRAM DIRECTOR Trigger 2.625 [facility] Battery Remaining Longevity 87 mo [facility] Battery Voltage 2.99 V [facility] Cholo Statistic Date Time Start [id number] [facility] Cholo Statistic Date Time End [...] OF VISIT: ??Routine remote transmission. PRESENTING EGM: ??MICROPHONE BOOM OPERATOR at 60 bpm VENTRICULAR ARRHYTHMIAS: ?No new [...] and continue routine device interrogations as indicated. Christopher V. Shaan M.D., Ph.D. CV IMPLANTAB LE CARDIAC DEVICE Final Result * (ABNORMAL) S-TSH (Thyroid-Stimulating Hormone - Sensitive) (03/27/2024 9:12 AM CDT) TSH, Sensitive 0.02(L) 0.3 - 4.2 mIU/L 03/27/2024 10:17 AM CDT DTL Blood (Blood, Venous) 03/27/2024 9:12 AM CDT 03/27/2024 9:52 AM CDT Zara Garvey APRN, C.N.P., D.N.P. LAB BLO OD ADD-ON Final Result Performing Organization Address [facility] Co de Phone Number [facility] [address] [place] [address], [facility] [address] [place] [address] * (ABNORMAL) T4 (Thyroxine), Free (03/27/2024 9:12 AM CDT) Pathologist [facility] T4 (Thyroxine), Free, S 2.4(H) 0.9 - 1.7 ng/dL 03/27/2024 10:17 AM CDT DT Blood (Blood, Venous) 03/27/2024 9:12 AM CDT 03/27/2024 9:52 AM CDT Zara Garvey APRN, C.N.P., D.N.P. LAB BLO OD ADD-ON Final Result Performing Organization Address City/[facility] Co de Phone Number [facility] [address] [place] [address], [facility] [address] [place] [address] * Sodium (05/02/2023 9:28 AM CDT) Pathologist [facility] Sodium, S 142 135 - 145 mmol/L 05/02/2023 10:49 AM CDT DTL Blood (Blood, Venous) 05/02/2023 9:28 AM CDT 05/02/2023 10:09 AM CDT Seven Barnard APRNNTato, M.S.N. LAB BLOO D ADD-ON Final Result Performing Organization Address [facility] Co de Phone Number [facility] [address] [place] [address] * Potassium (05/02/2023 9:28 AM CDT) Potassium, S 4.7 3.6 - 5.2 mmol/L 05/02/2023 10:49 AM CDT DTL Blood (Blood, Venous) 05/02/2023 9:28 AM CDT 05/02/2023 10:09 AM CDT Seven Barnard APRNNTripp., M.S.N. LAB BLOO D ADD-ON Final Result Performing Organization Address [facility] de Phone Number [facility] [address] [place] [address] * (ABNORMAL) Creatinine with Estimated GFR (05/02/2023 9:28 AM CDT) Creatinine 2.09(H) 0.74 - 1.35 mg/dL 05/02/2023 10:49 AM CDT DTL Estimated GFR (eGFR) 31(L) >=60 mL/min/BSA 05/02/2023 10:49 AM CDT DTL Comment: Estimated GFR calculated using the 2020 CKD_EPI creatinine equation. 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
--- OUTSIDE RECORDS SUMMARY | 2024-05-27 11:45 | XMS_ITS | Encounter Summary ---
Author Organization [facility] Address [address] [place] [phone] Care Team Providers Care Mold Injector Name Role Phone Elsewhere, Pcp Primary Care Provider Unavailabl e Reason for Referral * Outpatient (Routine) - Closed Specialty Diagnoses / Procedures Referred By Jessica patel Referred To Contact Vascular Medicine Diagnoses Aneurysm Abdominal Aortic Personal History Procedures Vascular Medicine - General eConsult Devi Stafford APRN, C.N.P., M.S.N. [address] [place] [phone] Phone: tel: fax: [facility] Referral ID Status Reason Start Date Expiration Date Visits Re quested Visits Authorized [id number] Closed 05/07/2024 05/07/2025 1 1 Encounter Details Date Type Department Care Team (Late st Contact Info) Description 05/07/2024 Orders Only Department of Cardiovascular Medicine in [place], [place] [address] [place] [phone] Devi Stafford APRN, C.N.P., M.S.N. [address] [place] [phone] Aneurysm Abdominal Aortic Personal History (Primary Dx) Social History Tobacco Use Types Packs/Day Years Used Date Smoking Tobacco: Former Cigarettes 0 01/12/1955 - 01/16/1985 Smokeless Tobacco: Never Alcohol Use Standard Drinks/Week Comments Yes 10 (1 standard drink = 0.6 oz pu re alcohol) occassional [facility] Utilities Answer Date Recorded In the past 12 months has e [employer], gas, oil, or water [employer] threatened to shut off services in your [...] How often do you attend [facility] or hoahaoism services? 1 to 4 times [...] Answer Date Recorded PHQ-2 Score 5 01/25/2019 [facility] Occupational Stress Questionnaire Answer Date [...] your living situation today? I have a [facility] place to live 12/01/2023 Education Answer [...] AM CDT Clinical Communication Virtual Review in [place], [place] [address] [place] [phone] 06/04/2024 8:20 AM CDT Appointment Department of Laboratory Medicine and Pathology, [place], [place] [address] [place] [phone] Devi Stafford APRN, C.N.P., M.S.N. [address] [place] [phone] 06/04/2024 8:30 AM CDT Ancillary Procedure Department of Cardiovascular Medicine in [place], [place] [address] [place] [phone] Devi Stafford APRN, C.N.P., M.S.N. [address] [place] [phone] 06/04/2024 9:30 AM CDT Appointment Department of Radiology, [facility] in [place], [place] [address] [place] [phone] Devi Stafford APRN, C.N.P., M.S.N. [address] [place] [phone] 06/04/2024 12:40 PM CDT Appointment Department of Cardiovascular Diseases in [place], [place] [address] [place] [phone] Devi Stafford APRN, C.N.P., M.S.N. [address] [place] [phone] Discharge Disposition: Home or Self Care 06/04/2024 2:15 PM CDT Office Visit Department of Cardiovascular Medicine in [place], [place] [address] [place] [address] Devi Stafford APRN, C.N.P., M.S.N. [address] [place] [phone] 06/18/2024 2:30 PM PONY ROLL FINISHER Office Visit Division of Endocrinology in [place], [place] [address] [place] [phone] Ciara Hebert M.D. [address] [place] [phone] documented as of this encounter Visit Diagnoses Diagnosis Aneurysm Abdominal Aortic Personal History- Primary documented in this encounter Additional Health Concerns Assessment Noted Time PHQ-9 Depression Total Score: 5 03/06/20 18 6:00 PM CDT documented as of this encounter Care Teams Mold Injector Relationship Specialty Start Date End Date Elsewhere, Pcp PCP - General Internal Medicine 09/13/22 documented as of this encounter
--- OUTSIDE RECORDS SUMMARY | 2024-05-27 11:45 | XMS_ITS ---
Author Organization [facility] Address [address] [place] [address] Care Team Providers Care Brake Machine Operator Name Role Phone Unavailable Unavailable Unavailable Surgery Details Not on file Complications Check Surgery Details section. Procedure Estimated Blood Loss Check Surgery Details section. Procedure Findings Check Surgery Details section. Procedure Specimens Taken Check Surgery Details section.
--- OUTSIDE RECORDS SUMMARY | 2024-05-27 11:45 | XMS_ITS | Referral Summary ---
Author Organization [facility] Address [address] [place] [address] Care Team Providers Care Verification Specialist Name Role Phone Elsewhere, Pcp Primary Care Provider Unavailabl e Source Comments Patient records contain information from all sites at [facility]. For routine questions regarding patient records, call [phone] during business hours, M-F 8:00 AM - 5:00 PM Central Time. Record requests for emergency care only can be directed to [phone] at any time.[facility] Encounters Date Type Department Care Team Description 05/09/2024 8:00 AM CDT Internal E-Consult Department of Vascular Medicine in [place], [place] [address] [place] [address] Fran Gracia M.D. 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 Aneurysm Abdominal Aortic Personal History (Primary Dx) 05/03/2024 8:42 AM CDT - 05/03/2024 11:59 PM CDT Hospital Encounter Department of Radiology in [address] [phone] Devi Stafford APRN, C.N.P., M.S.N. Prosthesis Aortic Valve Discharge Disposition: Home or Self Care 04/03/2024 Clinical Communication Division of Endocrinology in [place], [place] [address] [place] [phone] Zara Garvey APRN, C.N.P., D.N.P. 03/27/2024 8:57 AM CDT - 03/27/2024 11:59 PM CDT Hospital Encounter Department of Laboratory Medicine and Pathology, [facility] in [place], [place] [address] [place] [phone] Zara Garvey APRN C.N.P., D.N.P. Malignant Neoplasm Of Thyroid Papillary (HCC) Discharge Disposition: Home or Self Care 03/22/2024 4:00 AM CDT - 03/22/2024 11:59 PM CDT Hospital Encounter Department of Cardiovascular Diseases in [place], [place] [address] [place] [phone] Julian Garduno M.D., Ph.D. Encounter For Checking And Testing Of Cardiac Pacemaker Pulse Generator Battery Discharge Disposition: Home or Self Care 03/12/2024 Clinical Communication Department of Cardiovascular Medicine in [place], [place] [address] [place] [phone] Devi Stafford APRN, C.N.P., M.S.N. Pre-visit Testing Orders 02/27/2024 Refill Division of Endocrinology in [place], [place] [address] [place] [phone] Raven Holloway M.D. Med Refill from Last 3 Months Allergies Active Allergy [...] 1 tablet by mouth daily. Centrum (per skid road worker) 8 Active acetaminophen (TYLENOL) 500 mg tablet [...] Papillary 02/10/20 17 Anemia Of Renal Failure Epic Interface Analyst nirmala Kidney Disease On Erythropoietin 01/30/2017 Flutter [...] Due influenza trivalent high dose (HD)(PF) 7,05/16/2016 Social History Tobacco Use Types Packs/Day Years Used Date Smoking Tobacco: Former Cigarettes 0 01/12/1955 - 01/16/1985 Smokeless Tobacco: Never Tobacco Cessation:Counseling Given: Not Answered Alcohol Use Standard Drinks/Week Comments Yes 10 (1 standard drink = 0.6 oz pu re alcohol) occassional [facility] Utilities Answer Date Recorded In the past 12 months has th e electric, gas, oil, or water company [...] often do you attend chur ch or protestant services? 1 to 4 times per year [...] Answer Date Recorded PHQ-2 Score 5 01/25/2019 [facility] - Occupational Stress Questionnaire Answer Date [...] Comments Blood Pressure 138/86 09/25/2023 3:03 PM SWAGING MACHINE OPERATOR Pulse 73 09/25/2023 3:03 PM SWAGING MACHINE OPERATOR Temperature 36.6 ??C (97.9 ??F) 04/10/2023 10:00 AM C DT Respiratory Rate 16 04/10/2023 6:41 AM CDT Oxygen Saturation 94% 04/10/2023 10:10 AM CDT Inhaled Oxygen Concentration - - Weight 72 kg (158 lb 12.8 oz) 09/25/2023 3:03 PM SWAGING MACHINE OPERATOR Height 170.1 cm (5' 6.97) 09/25/2023 3:03 PM CS T Body Mass Index 24.89 09/25/2023 3:03 PM SWAGING MACHINE OPERATOR Plan of Treatment Upcoming Encounters Date Type Department Care Team (Latest Contact Info) Description 05/28/2024 10:00 AM CDT Clinical Communication Virtual Review in [place], [place] 200 [place] [address] 06/04/2024 8:20 AM CDT Appointment Department of Laboratory Medicine and Pathology, [place], [place] [address] [place] [phone] Devi Stafford APRN, Jass.N.P., M.S.N. [address] [place] [phone] 06/04/2024 8:30 AM CDT Ancillary Procedure Department of Cardiovascular Medicine in [place], [place] [address] [place] [phone] Devi Stafford APRN, Jass.N.P., M.S.N. [address] [place] [phone] 06/04/2024 9:30 AM CDT Appointment Department of Radiology, [facility] [place], [place] [address] [place] [phone] Devi Stafford APRN, C.N.P., M.S.N. [address] [place] [phone] 06/04/2024 12:40 PM CDT Appointment Department of Cardiovascular Diseases in [place], [place] [address] [place] [address] Devi Stafford APRN, C.N.P., M.S.N. [address] [place] [phone] Discharge Disposition: Home or Self Care 06/04/2024 2:15 PM CDT Office Visit Department of Cardiovascular Medicine in [place], [place] [address] [place] [phone] Devi Stafford APRN, C.N.P., M.S.N. [address] [place] [phone] 06/18/2024 2:30 PM SWAGING MACHINE OPERATOR Office Visit Division of Endocrinology in [place], [place] [address] [place] [phone] Ciara Hebert M.D. [address] [place] [phone] Medical Devices Implanted Type Area Pig Caster Device Identifier Shelf Expiration Date Model / Serial / Lot Lead [id number] Bone Plant Supervisor Attain Ability - Darling [id number] Implanted:Qty: 1 on 10/09/2017 Cardiac Lead Coronary Medtronic / [id number] / Description:Device Manufactu rer - [employer] Body Location - Other. Coronary Sinus. Device Status Text - CARD [id number]. Conversions - Default Historical Implant Device Implanted:03/07 (Quantity not on file) Cardiac Valve Prosthesis Aorta Description:Device Status Te xt - CardValve. pig valve placed on 11-16-2016. Mesh Or Patch-08/14/2022 Implanted:08/14 (Quantity not on file) Mesh or Patch Stomach Description:Hernia Mesh 2 Dental Bridges Misc Other Mouth Description:Upper and Lower Dental Bridge. Pacer Preeti Xt Sr Mri - Darling [id number] Implanted:Qty: 1 on 10/09/2017 Pacemaker Other/Legacy - See Implant Description Medtronic / [id number] 1S / Description:Device Manufactu rer - Medtronic [employer]. Body Location - Other. Left. Device Status Text - PACEMAKER-[id number]. Vascular Other-08/14/2016 Implanted:08/14 (Quantity not on file) [...] 1.6cm. us Devi Stafford APRN, C.N.P., M.S.N. [facility] P ROCEDURES Edited Result - Final * PACER REMOTE FOLLOW UP (03/27/2024 12:50 PM CDT) Date Time Interrogation Session [id number] [facility] Implantable Pulse Generator Pig Caster Medtronic [facility] Implantable Pulse Generator Model [id number] [place] XT SR MRI [facility] Implantable Pulse Generator Serial Number [id number] [facility] Type Interrogation Session Remote [facility] Clinic Name [facility] Implantable Pulse Generator Type Pacemaker [facility] Implantable Pulse Generator Implant Date [id number] [facility] Implantable Lead Pig Caster Medtronic [facility] Implantable Lead Model 4196 Attain Ability MRI SureScan [facility] Implantable Lead Serial Number [id number] [facility] Implantable Lead Implant [...] [facility] Lead Channel Impedance Value 855 ohm [facility] Lead Channel Impedance Value 361 ohm [facility] Lead Channel Sensing Intrinsic Amplitude 19.75 mV [facility] Lead Channel Sensing Intrinsic Amplitude 19.75 mV [facility] Lead Channel Pacing Threshold Amplitude 1.5 V [facility] Lead Channel Pacing Threshold Pulse Width 0.4 ms [facility] Battery Date Time of Measurements [facility] Battery TOBACCO BALER Trigger 2.625 [facility] Battery Remaining [...] OF VISIT: ??Routine remote transmission. PRESENTING EGM: ??BROADCAST CORRESPONDENT at 60 bpm VENTRICULAR ARRHYTHMIAS: ?No new [...] as indicated. Julian Garduno M.D., Ph.D. CV IMPLANTAB LE CARDIAC DEVICE Final Result * (ABNORMAL) S-TSH (Thyroid-Stimulating Hormone - Sensitive) (03/27/2024 9:12 AM CDT) TSH, Sensitive 0.02(L) 0.3 - 4.2 mIU/L 03/27/2024 10:17 AM CDT DTL Blood (Blood, Venous) 03/27/2024 9:12 AM CDT 03/27/2024 9:52 AM CDT Zara Garvey APRN, C.N.P., D.N.P. LAB BLO OD ADD-ON Final Result Performing Organization Address City/[facility]/ZIP Co de Phone Number [facility] [address] 200 [place] [address] * (ABNORMAL) T4 (Thyroxine), Free (03/27/2024 9:12 AM CDT) Pathologist [facility] T4 (Thyroxine), Free, S 2.4(H) 0.9 - 1.7 ng/dL 03/27/2024 10:17 AM CDT DTL Blood (Blood, Venous) 03/27/2024 9:12 AM CDT 03/27/2024 9:52 AM CDT Zara Garvey APRN, C.N.P., D.N.P. LAB BLO OD ADD-ON Final Result Performing Organization Address City/[facility]/ZIP Co de Phone Number [facility] [address] 200 [place] [address] * Sodium (05/02/2023 9:28 AM CDT) Sodium, S 142 135 - 145 mmol/L 05/02/2023 10:49 AM CDT DTL Blood (Blood, Venous) 05/02/2023 9:28 AM CDT 05/02/2023 10:09 AM CDT Seven Barnard APRNN.Marilee., M.S.N. LAB BLOO D ADD-ON Final Result Performing Organization Address City/[facility]/ZIP Co de Phone Number [facility] [address] 200 [place] [address] * Potassium (05/02/2023 9:28 AM CDT) Potassium, S 4.7 3.6 - 5.2 mmol/L 05/02/2023 10:49 AM CDT DT Blood (Blood, Venous) 05/02/2023 9:28 AM CDT 05/02/2023 10:09 AM CDT Jass Barnard APRN.N.P., M.S.N. LAB BLOO D ADD-ON Final Result Performing Organization Address City/[facility]/ZIP Co de Phone Number [facility] [address] [facility] 200 [place] [address] * (ABNORMAL) Creatinine with Estimated GFR (05/02/2023 9:28 AM CDT) Creatinine 2.09(H) 0.74 - 1.35 mg/dL 05/02/2023 10:49 AM CDT DTL Estimated GFR (eGFR) 31(L) >=60 mL/min/BSA 05/02/2023 10:49 AM CDT DTL Comment: Estimated GFR calculated using the 2020 CKD_EPI creatinine equation. Blood (Blood, Venous) 05/02/2023 9:28 AM CDT 05/02/2023 10:09 AM CDT Devi Seven Aranda APRNNDavisP., M.S.N. LAB BLOO D ADD-ON Final Result [facility] [address] [place] [address], [place] DTL [facility] [address] [place] [address] from Last 3 Months or Most Recently Relevant to Health Maintenance Insurance [facility] Advance Directives For more information, please contact: [phone] Documents on File Type Date Recorded Patient Gun Number Expl anation Advance Directives 2002 12:00 AM [...] Answer Comments Full Code: Discussed Care Teams Verification Specialist Relationship Specialty Start Date End Date Elsewhere, Pcp PCP - General Internal Medicine 09/13/22
--- OUTSIDE RECORDS SUMMARY | 2024-05-27 11:45 | XMS_ITS | Encounter Summary ---
Author Organization [facility] Address [address] [place] [phone] Care Team Providers Care Rotary Engine Assembler Name Role Phone Elsewhere, Pcp Primary Care Provider Unavailabl e Encounter Details Date Type Department Care Team (Late st Contact Info) Description 03/27/2024 8:57 AM CDT - 03/27/2024 11:59 PM CDT Hospital Encounter Department of Laboratory Medicine and Pathology, [facility] in [place], [place] [address] [place] [phone] Zara Garvey, ROSAURA, C.N.P., D.N.P. [address] [place] [phone] Malignant Neoplasm Of Thyroid Papillary (HCC) Discharge Disposition: Home or Self Care Social History Tobacco Use Types Packs/Day Years Used Date Smoking Tobacco: Former Cigarettes 0 01/12/1955 - 01/16/1985 Smokeless Tobacco: Never Alcohol Use Standard Drinks/Week Comments Yes 10 (1 standard drink = 0.6 oz pu re alcohol) occassional [facility] Utilities Answer Date Recorded In the [...] any clubs o r organizations such as moravian groups, unions, fraternal or athletic groups, or [...] Answer Date Recorded PHQ-2 Score 5 01/25/2019 [facility] [place] of Occupat ional Health - Occupational Stress [...] your living situation today? I have a [facility] place to live 12/01/2023 Education [...] 1 tablet by mouth daily. Centrum (per claims representative) 10/09/2017 omeprazole (PriLOSEC) [address] capsuleIndication [...] had discussedestablishing you with one of my Promotions Producer colleagues given your complex thyroid cancer history. We had planned for that to be around June 2024. Any luck with scheduling this? I would recommend contacting appointment line [phone] to start scheduling. I look forward to your reply. Shelbi Gardiner documented in this encounter Plan of Treatment Upcoming Encounters Date Type Department Care Team (Latest Contact Info) Description 05/28/2024 10:00 AM CDT Clinical Communication Virtual Review in [place], [place] 200 [place] [phone] 06/04/2024 8:20 AM CDT Appointment Department of Laboratory Medicine and Pathology, [address] [phone] Devi Stafford APRN, C.N.Marilee., M.S.N. [address] [place] [phone] 06/04/2024 8:30 AM CDT Ancillary Procedure Department of Cardiovascular Medicine in [place], [place] [address] [place] [phone] Devi Stafford APRN, C.N.P., M.S.N. [address] [place] [phone] 06/04/2024 9:30 AM CDT Appointment Department of Radiology, [facility], in [address] [phone] Devi Stafford APRN, C.NTato, M.S.N. [address] [place] [phone] 06/04/2024 12:40 PM CDT Appointment Department of Cardiovascular Diseases in [place], [place] [address] [place] [phone] Devi Stafford APRN, C.N.P., M.S.N. [address] [place] [phone] Discharge Disposition: Home or Self Care 06/04/2024 2:15 PM CDT Office Visit Department of Cardiovascular Medicine in [place], [place] [address] [place] [phone] Devi Stafford APRN, C.N.Marilee., M.S.N. [address] [place] [phone] 06/18/2024 2:30 PM DRILL OPERATOR Office Visit Division of Endocrinology in [place], [place] [address] [place] [phone] Ciara Hebert M.D. [address] [place] [phone] documented as of this encounter Procedures Procedure [...] OD ADD-ON Final Result Performing Organization Address [facility] Co de Phone Number [facility] 200 [place] [address] * (ABNORMAL) S-TSH (Thyroid-Stimulating Hormone - Sensitive) (03/27/2024 9:12 AM CDT) TSH, Sensitive 0.02(L) 0.3 - 4.2 mIU/L 03/27/2024 10:17 AM CDT DTL Blood (Blood, Venous) 03/27/2024 9:12 AM CDT 03/27/2024 9:52 AM CDT Zara Garvey APRN, C.N.P., D.N.P. LAB BLO OD ADD-ON Final Result Performing Organization Address [facility] Co de Phone Number [facility] 200 [place] [address] documented in this encounter Visit Diagnoses Diagnosis Malignant Neoplasm Of Thyroid Papillary (HCC) documented in this encounter Additional Health Concerns Assessment Noted Time PHQ-9 Depression Total Score: 5 03/06/20 18 6:00 PM CDT documented as of this encounter Care Teams Rotary Engine Assembler Relationship Specialty Start Date End Date Elsewhere, Pcp PCP - General Internal Medicine 09/13/22 documented as of this encounter
--- OUTSIDE RECORDS SUMMARY | 2024-05-27 11:46 | XMS_ITS | Encounter Summary ---
Author Organization [facility] Address [address] [place] [address] Care Team Providers Care Biomass Facilitator Name Role Phone Elsewhere, Pcp Primary Care Provider Unavailabl e Reason for Visit * Reason Comments Med Refill Encounter Details Date Type Department Care Team ([facility] st Contact Info) Description 02/27/2024 Refill Division of Endocrinology in [place], [place] [address] [place] [phone] Raven Holloway M.D. [address] [place] [phone] Med Refill Social History Tobacco Use Types Packs/Day Years Used Date Smoking Tobacco: Former Cigarettes 0 01/12/1955 - 01/16/1985 Smokeless Tobacco: Never Alcohol Use Standard Drinks/Week Comments Yes 10 (1 standard drink = 0.6 oz pu re alcohol) occassional [facility] Utilities Answer Date Recorded In the past 12 months has [facility] [employer], oil, or water [employer] threatened to shut off services in your [...] Answer Date Recorded PHQ-2 Score 5 01/25/2019 [facility] [place] of Occupat ional Health - Occupational Stress [...] your living situation today? I have a [employer] place to live 12/01/2023 Education Answer Date [...] AM CDT Clinical Communication Virtual Review in [place], [place] [address] [place] [phone] 06/04/2024 8:20 AM CDT Appointment Department of Laboratory Medicine and Pathology, [facility], in [place], [place] [address] [place] [phone] Devi Stafford APRN, C.N.P., M.S.N. [address] [place] [phone] 06/04/2024 8:30 AM CDT Ancillary Procedure Department of Cardiovascular Medicine in [place], [place] [address] [place] [phone] Devi Stafford APRN, C.NTato, M.S.N. [address] [place] [phone] 06/04/2024 9:30 AM CDT Appointment Department of Radiology, [facility], in [place], [place] [address] [place] [phone] Devi Stafford APRN, C.NTato, M.S.N. [address] [place] [phone] 06/04/2024 12:40 PM CDT Appointment Department of Cardiovascular Diseases in [place], [place] [address] [place] [phone] Devi Stafford APRN, C.NTato, M.S.N. [address] [place] [phone] Discharge Disposition: Home or Self Care 06/04/2024 2:15 PM CDT Office Visit Department of Cardiovascular Medicine in [place], [place] [address] [place] [phone] Devi Stafford APRN, C.NTato, M.S.N. [address] [place] [phone] 06/18/2024 2:30 PM REC THERAPIST Office Visit Division of Endocrinology in [place], [place] [address] [place] [phone] Ciara Hebert M.D. [address] [place] [phone] documented as of this encounter Visit Diagnoses Not on filedocumented in this encounter Additional Health Concerns Assessment Noted Time PHQ-9 Depression Total Score: 5 03/06/20 18 6:00 PM CDT documented as of this encounter Care Teams Biomass Facilitator Relationship Specialty Start Date End Date Elsewhere, Pcp PCP - General Internal Medicine 09/13/22 documented as of this encounter
--- OUTSIDE RECORDS SUMMARY | 2024-05-27 11:46 | XMS_ITS | Encounter Summary ---
Author Organization [facility] Address [address] [place] [address] Care Team Providers Care Telephone Interceptor Operator Name Role Phone Elsewhere, Pcp Primary Care Provider Unavailabl e Encounter Details Date Type Department Care Team (Late st Contact Info) Description 02/08/2024 Orders Only Division of Endocrinology in [place], [place] [address] [place] [phone] Zara Garvey, ROSAURA, C.N.P., D.N.P. 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 1 to 4 times per year [...] Date Recorded PHQ-2 Score 5 01/25/2019 [facility] of Occupat ional Health [...] your living situation today? I have a [facility] place to live 12/01/2023 Education Answer [...] AM CDT Clinical Communication Virtual Review in [place], [place] [address] [place] [address] 06/04/2024 8:20 AM CDT Appointment Department of Laboratory Medicine and Pathology, [facility], in [place], [place] [address] [place] [phone] Devi Stafford, ROSAURA, C.N.P., M.S.N. [address] [place] [phone] 06/04/2024 8:30 AM CDT Ancillary Procedure Department of Cardiovascular Medicine in [place], [place] [address] [place] [address] Devi Stafford APRN, C.N.Marilee., M.S.N. [address] [place] [phone] 06/04/2024 9:30 AM CDT Appointment Department of Radiology, [facility], in [place], [place] [address] [place] [address] Devi Stafford APRN, C.N.Yvrose, M.S.N. [address] [place] [phone] 06/04/2024 12:40 PM CDT Appointment Department of Cardiovascular Diseases in [place], [place] [address] [place] [address] Devi Stafford APRN, C.N.P., M.S.N. [address] [place] [phone] Discharge Disposition: Home or Self Care 06/04/2024 2:15 PM CDT Office Visit Department of Cardiovascular Medicine in [place], [place] [address] [place] [phone] Devi Stafford APRN, C.N.P., M.S.N. [address] [place] [phone] 06/18/2024 2:30 PM ARTISAN PLASTERER Office Visit Division of Endocrinology in [place], [place] [address] [place] [phone] Ciara Hebert M.D. [address] [place] [phone] documented as of this encounter Results * (ABNORMAL) T4 (Thyroxine), Free (03/27/2024 9:12 AM CDT) T4 (Thyroxine), Free, S 2.4(H) 0.9 - 1.7 ng/dL 03/27/2024 10:17 AM CDT DTL Blood (Blood, Venous) 03/27/2024 9:12 AM CDT 03/27/2024 9:52 AM CDT Zara Garvey APRN, C.N.P., D.N.P. LAB BLO OD ADD-ON Final Result Performing Organization Address City/[facility]/[place] [address] * (ABNORMAL) S-TSH (Thyroid-Stimulating Hormone - Sensitive) (03/27/2024 9:12 AM CDT) Pathologist [facility] TSH, Sensitive 0.02(L) 0.3 - 4.2 mIU/L 03/27/2024 10:17 AM CDT DTL Blood (Blood, Venous) 03/27/2024 9:12 AM CDT 03/27/2024 9:52 AM CDT Zara Garvey APRN, C.N.P., D.N.P. LAB BLO OD ADD-ON Final Result Performing Organization Address City/[facility]/[place] [address] documented in this encounter Visit Diagnoses Diagnosis Malignant Neoplasm Of Thyroid Papillary (HCC)- Primary documented in this encounter Additional Health Concerns Assessment Noted Time PHQ-9 Depression Total Score: 5 03/06/20 18 6:00 PM CDT documented as of this encounter Care Teams Telephone Interceptor Operator Relationship Specialty Start Date End Date Elsewhere, Pcp PCP - General Internal Medicine 09/13/22 documented as of this encounter
--- OUTSIDE RECORDS SUMMARY | 2024-05-27 11:46 | XMS_ITS | Encounter Summary ---
Author Organization [facility] Address [address] [place] [id number] Care Team Providers Care Whizzer Operator Name Role Phone Elsewhere, Pcp Primary Care Provider Unavailabl e Reason for Visit * Reason Onset Date Comments Thyroid Message Confirmation 02/08/2024 Encounter Details Date Type Department Care Team (Latest Contact Info) Description 02/08/2024 Clinical Communication Division of Endocrinology in [place], [place] [address] [place] [phone] Zara Garvey, ROSAURA, C.N.P., D.N.P. [address] [place] [phone] Thyroid Message Confirmation Social History Tobacco Use Types Packs/Day Years Used Date Smoking Tobacco: Former Cigarettes 0 01/12/1955 - 01/16/1985 Smokeless Tobacco: Never Alcohol Use Standard Drinks/Week Comments Yes 10 (1 standard drink = 0.6 oz pu re alcohol) occassional [facility] Utilities Answer Date Recorded In the past 12 months has [employer], gas, oil, or water [employer] threatened to shut off services in your [...] often do you attend chur ch or tenriism services? 1 to 4 times per year [...] PHQ-2 Score 5 01/25/2019 [facility] - Occupational Stress Questionnaire Answer Date [...] your living situation today? I have a [facility] place to live 12/01/2023 Education [...] AM CDT Clinical Communication Virtual Review in [place], [place] [address] [place] [phone] 06/04/2024 8:20 AM CDT Appointment Department of Laboratory Medicine and Pathology, [facility], in [place], [place] [address] [place] [address] Devi Stafford, ROSAURA, C.N.P., M.S.N. [address] [place] [phone] 06/04/2024 8:30 AM CDT Ancillary Procedure Department of Cardiovascular Medicine in [place], [place] [address] [place] [phone] Devi Stafford APRN, C.N.P., M.S.N. [address] [place] [phone] 06/04/2024 9:30 AM CDT Appointment Department of Radiology, [facility], in [place], [place] [address] [place] [phone] eDvi Stafford APRN, C.N.P., M.S.N. [address] [place] [phone] 06/04/2024 12:40 PM CDT Appointment Department of Cardiovascular Diseases in [place], [place] [address] [place] [phone] Devi Stafford APRN, C.N.P., M.S.N. [address] [place] [phone] Discharge Disposition: Home or Self Care 06/04/2024 2:15 PM CDT Office Visit Department of Cardiovascular Medicine in [place], [place] [address] [place] [phone] Devi Stafford APRN, C.N.P., M.S.N. [address] [place] [phone] 06/18/2024 2:30 PM SOFTWARE DEVELOPER MID LEVEL Office Visit Division of Endocrinology in [place], [place] [address] [place] [phone] Ciara Hebert M.D. [address] [place] [phone] documented as of this encounter Visit Diagnoses Not on filedocumented in this encounter Additional Health Concerns Assessment Noted Time PHQ-9 Depression Total Score: 5 03/06/20 18 6:00 PM CDT documented as of this encounter Care Teams Whizzer Operator Relationship Specialty Start Date End Date Elsewhere, Pcp PCP - General Internal Medicine 09/13/22 documented as of this encounter
--- OUTSIDE RECORDS SUMMARY | 2024-05-27 11:46 | XMS_ITS | Encounter Summary ---
Author Organization [facility] Address [address] [place] [address] Care Team Providers Care Private Mortgage Banker Safe Name Role Phone Elsewhere, Pcp Primary Care Provider Unavailabl e Reason for Visit * Reason Onset Date Comments Pre-visit Testing Orders 03/12/2024 Encounter Details Date Type Department Care Team (Latest Contact Info) Description 03/12/2024 Clinical Communication Department of Cardiovascular Medicine in [place], [place] [address] [place] [phone] Devi Stafford APRN, C.N.P., M.S.N. [address] [place] [phone] Pre-visit Testing Orders Social History Tobacco Use Types Packs/Day Years Used Date Smoking Tobacco: Former Cigarettes 0 01/12/1955 - 01/16/1985 Smokeless Tobacco: Never Alcohol Use Standard Drinks/Week Comments Yes 10 (1 standard drink = 0.6 oz pu re alcohol) occassional [facility] Utilities Answer Date Recorded In the past 12 months has [facility] [employer], gas, oil, or water [employer] threatened to shut off services in your [...] Answer Date Recorded PHQ-2 Score 5 01/25/2019 [facility]at [facility] Health - Occupational Stress Questionnaire Answer Date [...] your living situation today? I have a [facility] place to live 12/01/2023 Education Answer [...] AM CDT Clinical Communication Virtual Review in [place], [place] [address] [place] [address] 06/04/2024 8:20 AM CDT Appointment Department of Laboratory Medicine and Pathology, [facility], in [place], [place] [address] [place] [phone] Devi Stafford, ROSAURA, C.N.P., M.S.N. [address] [place] [phone] 06/04/2024 8:30 AM CDT Ancillary Procedure Department of Cardiovascular Medicine in [place], [place] [address] [place] [phone] Devi Stafford APRN, C.N.P., M.S.N. [address] [place] [phone] 06/04/2024 9:30 AM CDT Appointment Department of Radiology, [facility], in [place], [place] [address] [place] [phone] Devi Stafford APRN, C.N.P., M.S.N. [address] [place] [phone] 06/04/2024 12:40 PM CDT Appointment Department of Cardiovascular Diseases in [place], [place] [address] [place] [phone] Devi Stafford APRN, C.N.P., M.S.N. [address] [place] [phone] Discharge Disposition: Home or Self Care 06/04/2024 2:15 PM CDT Office Visit Department of Cardiovascular Medicine in [place], [place] [address] [place] [phone] Devi Stafford APRN, C.NTato, M.S.N. [address] [place] [phone] 06/18/2024 2:30 PM SEISMOGRAPH OBSERVER Office Visit Division of Endocrinology in [place], [place] [address] [place] [phone] Ciara Hebert M.D. [address] [place] [address] [place] [phone] documented as of this encounter Visit Diagnoses Not on filedocumented in this encounter Additional Health Concerns Assessment Noted Time PHQ-9 Depression Total Score: 5 03/06/20 18 6:00 PM CDT documented as of this encounter Care Teams Private Mortgage Banker Safe Relationship Specialty Start Date End Date Elsewhere, Pcp PCP - General Internal Medicine 09/13/22 documented as of this encounter
== END 2024-05-27 08:01 | disposition home or self-care (01) ==
LOC: NFLDREF 11:43
PROVIDERS: PCP Family Medicine; Referring Provider Family Medicine; Visit Provider Family Medicine
DX: I10 Essential (primary) hypertension (principal); E78.5 Hyperlipidemia, unspecified; Z79.01 Long term (current) use of anticoagulants
CPT/HCPCS: 80053; 80061; 85610

== ENCOUNTER 2024-06-05 11:39 | Outpatient (CLI) | payer MEDICARE, SELFPAY ==
--- OUTSIDE RECORDS SUMMARY | 2024-06-06 08:39 | XMS_ITS | Clinical Summary ---
Author Organization [facility] Address [address] [place] [address] Care Team Providers Care Litigation Legal Secretary Name Role Phone Elsewhere, Pcp Primary Care Provider Unavailabl e Source Comments Patient records contain information from all sites at [facility]. For routine questions regarding patient records, call [phone] during business hours, M-F 8:00 AM - 5:00 PM Central Time. Record requests for emergency care only can be directed to [phone] at any time.[facility] Allergies Active Allergy Reactions Criticality Noted [...] 1 tablet by mouth daily. Centrum (per tire recapper) 8 Active acetaminophen (TYLENOL) 500 mg tablet Take 500-1,000 mg by mouth every 6 (six) hours as needed for pain. Active omeprazole (PriLOSEC) [address] Cassie ns:Gastroesophag eal Reflux Disease TAKE ONE CAPSULE [...] to procedure. 12 capsule 11 9 Active atorvastatin (LIPITOR) 10 mg tablet TAKE ONE [...] Papillary 02/10/20 17 Anemia Of Renal Failure Supervisor Hot Dip Plating nirmala Kidney Disease On Erythropoietin 01/30/2017 Flutter [...] Encounters Date Type Department Care Team Description 06/04/2024 2:15 PM CDT Office Visit Department of Cardiovascular Medicine in [place], [place] [address] [place] [address] Devi Stafford APRN C.N.P., M.S.N. Prosthesis Aortic Valve (Primary Dx); Aneurysm Abdominal Aortic Personal History 06/04/2024 11:42 AM CDT - 06/04/2024 11:59 PM CDT Hospital Encounter Department of Cardiovascular Diseases in [place], [place] [address] [place] [phone] Devi Stafford APRN, C.N.P., M.S.N. Prosthesis Aortic Valve Discharge Disposition: Home or Self Care 06/04/2024 8:56 AM CDT - 06/04/2024 11:41 AM CDT Hospital Encounter Department of Radiology, [facility], in [place], [place] [address] [place] [address] Devi Stafford APRN, C.N.PDavis, M.S.N. Prosthesis Aortic Valve Discharge Disposition: Home or Self Care 06/04/2024 8:20 AM CDT - 06/04/2024 8:55 AM CDT Hospital Encounter Department of Laboratory Medicine and Pathology, [facility], in [place], [place] [address] [place] [address] Devi Stafford APRN, C.N.Yvrose, M.S.N. Prosthesis Aortic Valve Discharge Disposition: Home or Self Care 05/28/2024 10:00 AM CDT Clinical Communication Virtual Review in [place], [place] [address] [place] [address] Pre-visit Intake 05/09/2024 8:00 AM CDT Internal E-Consult Department of Vascular Medicine in [place], [place] [address] [place] [phone] Fran Gracia M.D. 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 Aneurysm Abdominal Aortic Personal History (Primary Dx) 05/03/2024 8:42 AM CDT - 05/03/2024 11:59 PM CDT Hospital Encounter Department of Radiology in [address] [phone] Devi Stafford APRN, C.N.P., M.S.N. Prosthesis Aortic Valve Discharge Disposition: Home or Self Care 04/03/2024 Clinical Communication Division of Endocrinology in [place], [place] [address] [place] [phone] Zara Garvey APRN, C.N.P., D.N.P. 03/27/2024 8:57 AM CDT - 03/27/2024 11:59 PM CDT Hospital Encounter Department of Laboratory Medicine and Pathology, [facility] in [place], [place] [address] [place] [address] Zara Garvey APRN C.N.P., D.N.P. Malignant Neoplasm Of Thyroid Papillary (HCC) Discharge Disposition: Home or Self Care 03/22/2024 4:00 AM CDT - 03/22/2024 11:59 PM [facility] Hospital Encounter Department of Cardiovascular Diseases in [place], [place] [address] [place] [address] Julian Garduno M.D., Ph.D. Encounter For Checking And Testing Of Cardiac Pacemaker Pulse Generator Battery Discharge Disposition: Home or Self Care 03/12/2024 Clinical Communication Department of Cardiovascular Medicine in [place], [place] [address] [place] [address] Devi Stafford APRN C.N.P., M.S.N. Pre-visit Testing Orders from Last 3 Months Immunizations Name Administration Dates Next Due influenza trivalent high dose (HD)(PF) 7,05/16/2016 Family History Medical History Relation Name Comments Thyroid disease Daughter Ciara Fregoso Anxiety disorder Mother Josiane Kearney Dementia Mother Josiane Kearney Osteoporosis Mother Josiane Kearney Suicide Attempts Sister Mandi Jackson Relation Name Status Comments Daughter Ciara Fregoso Alive Mother Josiane Kearney Alive Sister Mandi Jackson Alive Social History Tobacco Use Types Packs/Day Years Used Date Smoking Tobacco: Former Cigarettes 0 01/12/1955 - 02/10/1985 Smokeless Tobacco: Never Tobacco Cessation:Counseling Given: Not Answered Alcohol Use Standard Drinks/Week Comments Yes 10 (1 standard drink = 0.6 oz pu re alcohol) occassional [facility] Utilities Answer Date Recorded In the past 12 months has e [employer], gas, oil, or water [employer] threatened to shut off services in your [...] week 08/07/2022 How often do you attend [facility] or episcopal services? 1 to 4 [...] PHQ-2 Score 5 01/25/2019 [facility] [place] of Occupat ional Health - Occupational Stress [...] Comments Blood Pressure 138/86 09/25/2023 3:03 PM [facility] Pulse 73 09/25/2023 3:03 PM [facility] Temperature 36.6 ??C (97.9 ??F) 04/10/2023 10:00 AM C DT Respiratory Rate 16 04/10/2023 6:41 AM CDT Oxygen Saturation 94% 04/10/2023 10:10 AM CDT Inhaled Oxygen Concentration - - Weight 72 kg (158 lb 12.8 oz) 09/25/2023 3:03 PM [facility] Height 170.1 cm (5' 6.97) 09/25/2023 3:03 PM CS T Body Mass Index 24.89 09/25/2023 3:03 PM QUARRYMAN Plan of Treatment Upcoming Encounters Date Type Department Care Team (Late st Contact Info) Description 06/18/2024 2:30 PM [facility] Office Visit Division of Endocrinology in [place], [place] [address] [place] [phone] Ciara Hebert M.D. [address] [place] [address] Health Maintenance Due Date Last Done Comments RSV vaccine - (32-3 6 weeks) or 60+ years (1 - 1-dose 75+ series) 2016 Depression Screening (Annual PHQ-2) 08/14/2023 COVID-19 Vaccine (5 - 2023-2 5 season) 2024 12/27/2021, 06/09/2021, 10/22/2020, Additional history exists Office Visit for Blood Press ure Check / Re-check 09/25/2024 09/25/2023 Thyroid Stimulating Hormone (TSH) test for thyroid function 03/27/2025 03/27/2024, 02/07/2024, 12/06/2023, Additional history exists Creatinine Level (Kidney Fun ction Test) 06/04/2025 06/04/2024, 05/02/2023, 05/03/2022, Additional history exists Potassium Level 06/04/2025 06/04/2024, 04/14, 05/03/2022, Additional history exists Sodium Level 06/04/2025 06/04/2024, 04/14, 05/03/2022, Additional history exists DTaP,Tdap,and Td Vaccines (3 - Td or Tdap) 02/08/2032 02/07/2022, 06/20/2012 Pneumococcal vaccine (65+ years) Completed 09/16/19 15, 06/27/2008 Zoster Vaccines Completed 05/13/2019, 01/21/2019 Influenza Vaccine Completed 05/21/2024, , 07/04/2022, Additional history exists Fall Risk Screen (Annual) Completed 06/04/2024 Medical Devices Implanted Type Area Barrel Repairer Device Identifier Shelf Expiration Date Model / Serial / Lot Lead [id number] Sales Support Associate Attain Ability - Darling [id number] Implanted:Qty: 1 on 10/09/2017 Cardiac Lead Coronary Medtronic / [id number] / Description:Device Manufactu rer - Medtronic Moblico. Body Location - Other. Coronary Sinus. Device Status Text - CARD [id number]. Conversions - Default Historical Implant Device Implanted:03/07 (Quantity not on file) Cardiac Valve Prosthesis Aorta Description:Device Status Te xt - CardValve. pig valve placed on 11-16-2016. Mesh Or Patch-08/14/2022 Implanted:08/14 (Quantity not on file) Mesh or Patch Stomach Description:Hernia Mesh 2 Dental Bridges Misc Other Mouth Description:Upper and Lower Dental Bridge. Pacer Preeti Xt Sr Mri - Darling [id number] Implanted:Qty: 1 on 10/09/2017 Pacemaker Other/Legacy - See Implant Description Medtronic / [id number] / Description:Device Manufactu rer - Symphony Concierge. Body Location - Other. Left. Device Status Text - PACEMAKER-[id number]. Vascular Other-08/14/2016 Implanted:08/14 (Quantity not on file) Vascular Other Right: Arm Description:A/V fistula Procedures Procedure Name Priority Date/Time Associated Diagnosis Comments (TTE) 2D ECHO DOPPLER COLOR Routine 06/04/2024 2:03 PM CDT Prosthesis Aortic Valve ECG Routine 06/04/2024 9:21 AM CDT Prosthesis Aortic Valve DX CHEST AP OR PA AND LATERAL 2 VIEWS RAD - Routine (most inpatients and all outpatients) 06/04/2024 9:19 AM CDT Prosthesis Aortic Valve NT-PRO B-TYPE NATRIURETIC PEPTIDE (BNP), S Routine 06/04/2024 8:54 AM CDT Prosthesis Aortic Valve LIPID PANEL, S Routine 06/04/2024 8:54 AM CDT Prosthesis Aortic Valve CBC WITH DIFFERENTIAL, B Routine 06/04/2024 8:54 AM CDT Prosthesis Aortic Valve PROTHROMBIN TIME (PT), P Routine 06/04/2024 8:54 AM CDT Prosthesis Aortic Valve SODIUM, S/P Routine 06/04/2024 8:54 AM CDT Prosthesis Aortic Valve POTASSIUM, S/P Routine 06/04/2024 8:54 AM CDT Prosthesis Aortic Valve GLUCOSE, FASTING, S/P Routine 06/04/2024 8:54 AM CDT Prosthesis Aortic Valve CREATININE WITH EGFR, S/P Routine 06/04/2024 8:54 AM CDT Prosthesis Aortic Valve ALBUMIN, S/P Routine 06/04/2024 8:54 AM CDT Prosthesis Aortic Valve US AORTA RAD - Routine (most inpatients [...] Thyroid Papillary (HCC) from Last 3 Months Results * (TTE) 2D ECHO DOPPLER COLOR (06/04/2024 2:03 PM CDT) Ejection Fraction 55 MC CV EIMS Mid-Ascending Aorta 32 MC CV EIMS LV Mass Index 74 MC CV EIMS LV End-Diastolic Diameter 43 MC CV EIMS LV End-Systolic Diameter 30 MC CV EIMS LV End-Diastolic Volume 157 MC CV EIMS LV End-Systolic Volume 70 MC CV EIMS MV E Velocity 0.9 MC CV EIMS MV e' Velocity Medial 0.06 MC CV EIMS MV e' Velocity Lateral 0.12 MC CV EIMS MV E/e' Medial 15 MC CV EIMS MV E/e' Lateral 7.5 MC CV EIMS Left ventricular stroke volume index 42 MC CV EIMS Cardiac Output 4.49 MC CV EIMS Cardiac Index 2.51 MC CV EIMS LV Interventricular Septal Wall Thickness 9 MC CV EIMS LV Posterior Wall Thickness 10 MC CV EIMS LV Relative Wall Thickness 47 MC CV EIMS RV 4-Chamber Basal Diameter 44 MC CV EIMS RV 4-Chamber Mid Diameter 35 MC CV EIMS RV 4-Chamber Length 90 MC CV EIMS TAPSE 9 MC CV EIMS Tricuspid Annular S? 0.07 MC CV EIMS RV Free Wall Strain -17 MC CV EIMS TR Vmax 2.65 MC CV EIMS RA Pressure 5 MC CV EIMS RV Systolic Pressure 33 MC CV EIMS Estimated diastolic pulmonary artery pressure 8 MC CV EIMS AV mean gradient 12 MC CV EIMS Aortic valve area 1.56 MC CV EIMS Aortic Valve Area Index 0.87 MC CV EIMS Aortic Valve Dimensionless Index 0.38 MC CV EIMS TV Regurgitant Volume 26 MC CV EIMS LA Volume Index 53 MC CV EIMS Aortic Valve Systolic Peak Velocity 2.3 MC CV EIMS Anatomical Region Laterality Modality Echocardiography 06/04/2024 12:3 4 PM CDT Impressions 06/04/2024 2:16 PM CDT LEFT VENTRICLE:Mildly enlarged left ventricular chamber size. Abnormal left ventricular geometry with ??concentric remodeling (increased wall thickness to cavity ratio). Left ventricular mass index by 2D 74 g/m2. Calculated 2-D biplane volumetric left ventricular ejection fraction of 55% without the use of ultrasound enhancing agent. Abnormal ventricular septal motion - post-operative ??without other regional wall motion abnormalities. Indeterminate left ventricular diastolic function. RIGHT VENTRICLE:Mild-moderately enlarged right ventricular chamber size. Mildly reduced right ventricular systolic function. Averaged right ventricular free wall longitudinal peak systolic strain, vendor calculated, is -17% (normal </= -25%). Estimated right ventricular systolic pressure 33 mmHg (right atrial pressure of 5 mmHg). ATRIA:Severely enlarged left atrial size. Left atrial volume index 53 ml/m2. Moderately enlarged right atrial size. 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 Aortic valve prosthesis systolic mean Doppler gradient 12 mmHg. Aortic valve prosthetic orifice area by Doppler: 1.56 cm2 Trivial aortic valve prosthetic regurgitation. No aortic valve periprosthetic regurgitation. Mildly thickened mitral valve. Mild mitral valve regurgitation. Normal pulmonary valve. Normal pulmonary valve systolic velocities. Mild pulmonary valve regurgitation. Morphologically normal tricuspid valve. Tricuspid annulus dilatation. Moderate tricuspid valve regurgitation. Tricuspid regurgitation ERO (PISA) 0.30 cm2. Tricuspid regurgitant volume (PISA) 26 ml. OTHER ECHO FINDINGS:Normal inferior vena cava size with normal inspiratory collapse (>50%). Normal mid ascending aorta diameter of 32 mm (status post ascending aorta graft repair in 2007). 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 No atrial level shunt by color flow imaging. Abdominal aorta incompletely visualized. Normal abdominal aorta Doppler flow pattern. No intracardiac mass or thrombus, but the left atrial appendage cannot be visualized adequately with transthoracic echo to exclude thrombus in this location. Prominent anterior epicardial fat layer. No ??pericardial effusion. For the complete report, see the Order-Level Documents. Narrative 06/04/2024 2:16 PM CDT For the complete report, see the Order-Level Documents. Hemodynamics Heart Rate: 60 BPM Blood Pressure: 124 / 74 mmHg ECG: Atrial fibrillation, Pacemaker Final Impressions 1. Normal mid ascending aorta diameter of 32 mm (status post ascending aorta graft repair in 2007). 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 2. 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 3. Aortic valve prosthesis systolic mean Doppler gradient 12 mmHg. 4. Mildly enlarged left ventricular chamber size, calculated 2-D biplane volumetric ejection fraction of 55%. 5. Abnormal left ventricular geometry with ??concentric remodeling (increased wall thickness to cavity ratio), indeterminate diastolic function. 6. Mild-moderately enlarged right ventricular chamber size, mildly reduced systolic function, averaged right ventricular free wall longitudinal peak systolic strain, vendor calculated, is -17% (normal </= -25%), estimated right ventricular systolic pressure 33 mmHg (right atrial pressure of 5 mmHg). 7. Moderate tricuspid valve regurgitation. 8. No ??pericardial effusion. 9. Compared to the report of 05/02/2023 no significant change has occurred. Side by side comparison of images performed. Procedure Note Osman Fallon M.D. - 06/04/2024 For the complete report, see the Order-Level Documents. Hemodynamics Heart Rate: 60 BPM Blood Pressure: 124 / 74 mmHg ECG: Atrial fibrillation, Pacemaker Final Impressions 1. Normal mid ascending aorta diameter of 32 mm (status post ascendingaorta graft repair in 2007). Known large pseudoaneurysm, primarilythrombosed, adjacent to the ascending aorta was again visualized. 2. 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 3. Aortic valve prosthesis systolic mean Doppler gradient 12 mmHg. 4. Mildly enlarged left ventricular chamber size, calculated 2-D biplanevolumetric ejection fraction of 55%. 5. Abnormal left ventricular geometry with concentric remodeling(increased wall thickness to cavity ratio), indeterminate diastolicfunction. 6. Mild-moderately enlarged right ventricular chamber size, mildly reducedsystolic function, averaged right ventricular free wall longitudinal peaksystolic strain, vendor calculated, is -17% (normal </= -25%), estimatedright ventricular systolic pressure 33 mmHg (right atrial pressure of 5mmHg). 7. Moderate tricuspid valve regurgitation. 8. No pericardial effusion. 9. Compared to the report of 05/02/2023 no significant change hasoccurred. Side by side comparison of images performed. Findings LEFT VENTRICLE:Mildly enlarged left ventricular chamber size. Abnormalleft ventricular geometry with concentric remodeling (increased wallthickness to cavity ratio). Left ventricular mass index by 2D 74 g/m2.Calculated 2-D biplane volumetric left ventricular ejection fraction of55% without the use of ultrasound enhancing agent. Abnormal ventricularseptal motion - post-operative without other regional wall motionabnormalities. Indeterminate left ventricular diastolic function. RIGHT VENTRICLE:Mild-moderately enlarged right ventricular chamber size.Mildly reduced right ventricular systolic function. Averaged rightventricular free wall longitudinal peak systolic strain, vendorcalculated, is -17% (normal </= -25%). Estimated right ventricularsystolic pressure 33 mmHg (right atrial pressure of 5 mmHg). ATRIA:Severely enlarged left atrial size. Left atrial volume index 53ml/m2. Moderately enlarged right atrial size. 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 Aortic valve prosthesis systolic mean Dopplergradient 12 mmHg. Aortic valve prosthetic orifice area by Doppler: 1.56cm2 Trivial aortic valve prosthetic regurgitation. No aortic valveperiprosthetic regurgitation. Mildly thickened mitral valve. Mild mitralvalve regurgitation. Normal pulmonary valve. Normal pulmonary valvesystolic velocities. Mild pulmonary valve regurgitation. Morphologicallynormal tricuspid valve. Tricuspid annulus dilatation. Moderate tricuspidvalve regurgitation. Tricuspid regurgitation ERO (PISA) 0.30 cm2.Tricuspid regurgitant volume (PISA) 26 ml. OTHER ECHO FINDINGS:Normal inferior vena cava size with normal inspiratorycollapse (>50%). Normal mid ascending aorta diameter of 32 mm (status postascending aorta graft repair in 2007). 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 No atrial level shunt by color flow imaging. Abdominal aortaincompletely visualized. Normal abdominal aorta Doppler flow pattern. Nointracardiac mass or thrombus, but the left atrial appendage cannot bevisualized adequately with transthoracic echo to exclude thrombus in thislocation. Prominent anterior epicardial fat layer. No pericardialeffusion. For the complete report, see the Order-Level Documents. Devi Stafford APRN C.N.P., M.S.N. CV ECHO PROCEDURES Final Result * ECG 12 Lead (06/04/2024 9:21 AM CDT) Ventricular Rate ECG/Min 68 BPM MUSE QRSD Interval 198 ms MUSE QT Interval 504 ms MUSE QTC Interval 537 ms MUSE R Viking 113 degrees MUSE T Wave Viking -47 degrees MUSE 06/04/2024 9:21 AM CDT 06/04/2024 9:36 AM CDT Impressions MUSE - 06/04/2024 9:36 AM CDT Ventricular-paced rhythm Atrial fibrillation Prolonged QT When compared with ECG of 02-May-2023 09:35, Vent. rate has decreased by ??11 bpm Reviewed by ART Lopez Narrative Procedure Note Tito Elliott Jr., M.D. - 06/04/2024 IMPRESSION: Ventricular-paced rhythm Atrial fibrillation Prolonged QT When compared with ECG of 02-May-2023 09:35, Vent. rate has decreased by 11 bpm Reviewed by ART Lopez Devi Stafford APRN, C.N.P., M.S.N. ECG ORDE RABLES Final Result MUSE NA * DX Chest AP or PA and Lateral 2 Views (06/04/2024 9:19 AM CDT) Anatomical Region Laterality Modality Chest, Thoracic RST LOS, Tho racic ARZ LOS, Thoracic FLA LOS N/A Digital Radiography Impressions 06/04/2024 9:44 AM CDT Compared with the 05/02/23 chest radiograph. Improved aeration with decreased left greater than right basilar atelectasis and decrease accentuation of the normal cardiac silhouette. Calcified tortuous thoracic aorta, AVR, intact sternotomy wires and mediastinal clips are again visualized. Single-chamber pacemaker is again seen. Right upper quadrant surgical clips. Similar degenerative changes of the spine. The chest is otherwise unremarkable. Narrative 06/04/2024 9:44 AM CDT EXAM: ??DX CHEST AP OR PA AND LATERAL 2 VIEWS Procedure Note Km Dial M.D. - 06/04/2024 EXAM: DX CHEST AP OR PA AND LATERAL 2 VIEWS IMPRESSION: Compared with the 05/02/23 chest radiograph. Improved aeration withdecreased left greater than right basilar atelectasis and decreaseaccentuation of the normal cardiac silhouette. Calcified tortuous thoracicaorta, AVR, intact sternotomy wires and mediastinal clips are again visualized. Single-chamber pacemakeris again seen. Right upper quadrant surgical clips. Similar degenerativechanges of the spine. The chest is otherwise unremarkable. Devi Stafford APRN, C.N .P., M.S.N. IMG DIAGNOSTIC IMAGING PROCEDURES Final Result * Lipid Panel (06/04/2024 8:54 AM CDT) Triglycerides 79 mg/dL 06/04/2024 10:12 AM CDT DTL Comment: ----REFERENCE VALUE---- Normal: <150 mg/dL Borderline High: 150-199 mg/dL High: 200-499 mg/dL Very High: > or =500 mg/dL Cholesterol, Total 142 mg/dL 2023 10:12 AM CDT DTL Comment: ----REFERENCE VALUE---- Desirable: < 200 mg/dL Borderline High: 200 - 239 mg/dL High: > or = 240 mg/dL Cholesterol, LDL, Calculated 84 mg/dL 06/04/2024 10:12 AM CDT DTL Comment: ----REFERENCE VALUE---- Desirable: <100 mg/dL Above Desirable: 100-129 mg/dL Borderline High: 130-159 mg/dL High: 160-189 mg/dL Very High: >=190 mg/dL ----ADDITIONAL INFORMATION---- LDL cholesterol calculated using the Navarro/NIH equation. Cholesterol, HDL, S 43 >=40 mg/dL 06/04/2024 10:12 AM CDT DTL Cholesterol, Non-HDL, Calculated 99 mg/dL 06/04/2024 10:12 AM CDT DTL Comment: ----REFERENCE VALUE---- Desirable: <130 mg/dL Above Desirable: 130-159 mg/dL Borderline High: 160-189 mg/dL High: 190-219 mg/dL Very High: > or =220 mg/dL Fasting (8 HR or more) Yes 06/04/2024 8:54 AM CDT DTL Blood (Blood, Venous) 06/04/2024 8:54 AM CDT 06/04/2024 9:43 AM CDT Devi Stafford APRN, C.N.P., M.S.N. LAB BLOO D ADD-ON Final Result [facility] [address] [place], [place] [id number] [address] * (ABNORMAL) NT-Pro B-Type Natriuretic Peptide (BNP) (06/04/2024 8:54 AM CDT) Pathologist [facility] NT-Pro BNP 2390(H) <=540 pg/mL 06/04/2024 10:12 AM CDT DTL Comment: NT-proBNP values less [...] absence of renal failure. Blood (Blood, Venous) 06/04/2024 8:54 AM CDT 06/04/2024 9:43 AM CDT Jass Barnard APRN.N.Marilee., M.S.N. LAB BLOO D ADD-ON Final Result [facility] [address] [place], [place] [id number] [place] [id number] * (ABNORMAL) Prothrombin Time (PT) (06/04/2024 8:54 AM CDT) Pathologist [facility] Prothrombin Time, P 41.3(H) 9.4 - 12.5 sec 06/04/2024 9:58 AM CDT DTL INR 3.7 0.9 - 1.1 06/04/2024 9:58 AM CDT DTL Comment: ----ADDITIONAL INFORMATION---- Standard intensity warfarin therapeutic range: 2.0 to 3.0 ?? High intensity warfarin therapeutic range: 2.5 to 3.5 Blood (Blood, Venous) 06/04/2024 8:54 AM CDT 06/04/2024 9:17 AM CDT Seven Barnard APRNNDavisP., M.S.N. LAB BLOO D ADD-ON Final Result [facility] [address] [place] [address], [facility] DTL [facility] [address] [place] [address] * (ABNORMAL) CBC with Differential, Blood (06/04/2024 8:54 AM CDT) Hemoglobin 14.2 13.2 - 16.6 g/dL 06/04/2024 9:55 AM CDT DTL Hematocrit 42.8 38.3 - 48.6 % 06/04/2024 9:55 AM CDT DTL Erythrocytes 4.55 4.35 - 5.65 x10(12)/L 06/04/2024 9:55 AM CDT DTL MCV 94.1 78.2 - 97.9 fL 06/04/2024 9:55 AM CDT DTL RBC Distrib Width 12.9 11.8 - 14.5 % 06/04/2024 9:55 AM CDT DTL Platelet Count 188 135 - 317 x10(9)/L 06/04/2024 9:55 AM CDT DTL Leukocytes 5.9 3.4 - 9.6 x10(9)/L 06/04/2024 9:55 AM CDT DTL Neutrophils 3.83 1.56 - 6.45 x10(9)/L 06/04/2024 9:55 AM CDT DHPM Lymphocytes 0.79(L) 0.95 - 3.07 x10(9)/L 06/04/2024 9:55 AM CDT DTL Monocytes 0.70 0.26 - 0.81 x10(9)/L 06/04/2024 9:55 AM CDT DTL Eosinophils 0.45 0.03 - 0.48 x10(9)/L 06/04/2024 9:55 AM CDT DTL Basophils 0.08 0.01 - 0.08 x10(9)/L 06/04/2024 9:55 AM CDT DTL Blood (Blood, Venous) 06/04/2024 8:54 AM CDT 06/04/2024 9:17 AM CDT Seven Barnard APRNNTripp., M.S.N. LAB BLOO D ADD-ON Final Result [facility] [address] [place] [address], [facility] [address] [place] [address] [address] [facility] [address] [place] [address] * Sodium (06/04/2024 8:54 AM CDT) Sodium, S 141 135 - 145 mmol/L 06/04/2024 10:12 AM CDT DT Blood (Blood, Venous) 06/04/2024 8:54 AM CDT 06/04/2024 9:43 AM CDT Seven Barnard APRNNTripp., M.S.N. LAB BLOO D ADD-ON Final Result Performing Organization Address City/[facility]/ZIP Co de Phone Number [facility] [address] [place] [address], [facility] 200 [place] [address] * Potassium (06/04/2024 8:54 AM CDT) Potassium, S 4.5 3.6 - 5.2 mmol/L 06/04/2024 10:12 AM CDT DTL Blood (Blood, Venous) 06/04/2024 8:54 AM CDT 06/04/2024 9:43 AM CDT Seven Barnard APRNN.P., M.S.N. LAB BLOO D ADD-ON Final Result [facility] [address] [place] [address], [facility] [address] [place] [address] * (ABNORMAL) Glucose, Fasting (06/04/2024 8:54 AM CDT) Glucose, P 107(H) 70 - 100 mg/dL 06/04/2024 9:37 AM CDT DTL Last Intake 15 hr 06/04/2024 9:21 AM CDT DTL Blood (Blood, Venous) 06/04/2024 8:54 AM CDT 06/04/2024 9:21 AM CDT Devi Stafford APRN C.N.P., M.S.N. LAB BLOO D NON ADD-ON Final Result Performing Organization Address [facility] Co de Phone Number [facility] [address] [place] [address], [facility] [address] [place] [address] * (ABNORMAL) Creatinine with Estimated GFR (06/04/2024 8:54 AM CDT) Creatinine 2.26(H) 0.74 - 1.35 mg/dL 06/04/2024 10:12 AM CDT DTL Estimated GFR (eGFR) 28(L) >=60 mL/min/BSA 06/04/2024 10:12 AM CDT DTL Comment: Estimated GFR calculated using the 2020 CKD_EPI creatinine equation. Blood (Blood, Venous) 06/04/2024 8:54 AM CDT 06/04/2024 9:43 AM CDT Devi Stafford APRN C.N.P., M.S.N. LAB BLOO D ADD-ON Final Result Performing Organization Address City/[facility]/ZIP Co de Phone Number [facility] [address] [place], [place] [address] [address] [place] [address] * Albumin (06/04/2024 8:54 AM CDT) Albumin, S 4.2 3.5 - 5.0 g/dL 06/04/2024 10:12 AM CDT DTL Blood (Blood, Venous) 06/04/2024 8:54 AM CDT 06/04/2024 9:43 AM CDT us Devi Stafford APRN, C.N.P., M.S.N. LAB BLOO D ADD-ON Final Result [facility] [address] [place] [address], [facility] [address] [place] [address] * US Aorta (05/03/2024 9:28 AM CDT) [...] previously 1.2 x 1.2 cm. Procedure Note Sztuk, Aimee, D.O. - 05/07/2024 REVISED REPORT: EXAM: US [...] iliac artery measuring 1.7 cm, previously 1.6cm. Devi Stafford APRN C.N.P., M.S.N. [facility] P ROCEDRUST Edited Result - Final * PACER REMOTE FOLLOW UP (03/27/2024 12:50 PM CDT) Date Time Interrogation Session [id number] [facility] Implantable Pulse Generator Barrel Repairer Medtronic [facility] Implantable Pulse Generator Model [id number] Preeti XT SR MRI [facility] Implantable Pulse Generator Serial Number [id number] [facility] Type Interrogation Session Remote [facility] Clinic Name [facility] Implantable Pulse Generator Type Pacemaker [facility] Implantable Pulse Generator Implant Date [id number] [facility] Implantable Lead Barrel Repairer Medtronic [facility] Implantable Lead Model 4196 Attain Ability MRI SureScan [facility] Implantable Lead Serial Number [id number] [facility] Implantable Lead Implant [...] Lead Channel Setting Pacing Capture Mode Adaptive [facility] Zone Setting Type Category VF [facility] Zone Setting Type Category VT [facility] Zone Setting Type Category VT [facility] Zone Setting Type Category VT [facility] Zone Setting Detection Interval 360 ms [facility] Zone Setting Type Category [...] LAB SYSTEM Battery Date Time of Measurements [id number] [facility] Battery COPPER ETCHER Trigger 2.625 [facility] Battery Remaining Longevity 87 mo [facility] Battery Voltage 2.99 V [facility] Cholo Statistic Date Time Start [id number] [facility] Cholo Statistic Date Time [...] SYSTEM Episode Statistic Recent Date Time Start [id number] [facility] Episode Statistic Recent Date Time End [facility] Episode Statistic Recent Date Time Start [id number] [facility] Episode Statistic Recent Date Time End [facility] Episode Statistic Recent Date Time Start [id number] [facility] Episode Statistic Recent Date [...] SYSTEM Episode Statistic Total Date Time Start [id number] [facility] Episode Statistic Total Date [...] OF VISIT: ??Routine remote transmission. PRESENTING EGM: ??PROTEOMICS SCIENTIST at 60 bpm VENTRICULAR ARRHYTHMIAS: ?No new [...] 9:12 AM CDT 03/27/2024 9:52 AM CDT us aZra Garvey APRN, C.N.P., D.N.P. LAB BLO OD ADD-ON Final Result Performing Organization Address [facility] Co de Phone Number [facility] [address] [place] [address], [facility] [address] [place] [address] * (ABNORMAL) T4 (Thyroxine), Free (03/27/2024 9:12 AM CDT) T4 (Thyroxine), Free, S 2.4(H) 0.9 - 1.7 ng/dL 03/27/2024 10:17 AM CDT DTL Blood (Blood, Venous) 03/27/2024 9:12 AM CDT 03/27/2024 9:52 AM CDT Zara Garvey APRN, C.N.P., D.N.P. LAB BLO OD ADD-ON Final Result Performing Organization Address [facility] Co de Phone Number [facility] [address] [place] [address], [facility] 200 [place] [address] from Last 3 Months Insurance [facility] [place] Address: [address] [address] Advance Directives For more information, please contact: [phone] Documents on File Type Date Recorded Patient Fitting Room Checker Expl anation Advance Directives 2002 12:00 AM [...] Answer Comments Full Code: Discussed Care Teams Litigation Legal Secretary Relationship Specialty Start Date End Date Elsewhere, Pcp PCP - General Internal Medicine 09/13/22
--- OUTSIDE RECORDS SUMMARY | 2024-06-06 08:39 | XMS_ITS | Referral Summary ---
Author Organization [facility] Address [address] [place] [address] Care Team Providers Care Contract Sheltered Workshop Supervisor Name Role Phone Elsewhere, Pcp Primary Care Provider Unavailabl e Source Comments Patient records contain information from all sites at [facility]. For routine questions regarding patient records, call [phone] during business hours, M-F 8:00 AM - 5:00 PM Central Time. Record requests for emergency care only can be directed to [phone] at any time.[facility] Encounters Date Type Department Care Team Description 06/04/2024 8:56 AM CDT - 06/04/2024 11:41 AM CDT Hospital Encounter Department of Radiology, [facility] in [place], [place] [address] [place] [phone] Devi Stafford APRN, C.N.P., M.S.N. Prosthesis Aortic Valve Discharge Disposition: Home or Self Care 06/04/2024 8:20 AM CDT - 06/04/2024 8:55 AM CDT Hospital Encounter Department of Laboratory Medicine and Pathology, [facility] in [place], [place] [address] [place] [address] Devi Stafford APRN, C.N.P., M.S.N. Prosthesis Aortic Valve Discharge Disposition: Home or Self Care 06/04/2024 11:42 AM CDT - 06/04/2024 11:59 PM CDT Hospital Encounter Department of Cardiovascular Diseases in [place], [place] [address] [place] [address] Devi Stafford APRN, C.NTato, M.S.N. Prosthesis Aortic Valve Discharge Disposition: Home or Self Care 06/04/2024 2:15 PM CDT Office Visit Department of Cardiovascular Medicine in [place], [place] [address] [place] [phone] Devi Stafford APRN, C.NTripp., M.S.N. Prosthesis Aortic Valve (Primary Dx); Aneurysm Abdominal Aortic Personal History 05/28/2024 10:00 AM CDT Clinical Communication Virtual Review in [place], [place] 200 [place] [address] Pre-visit Intake 05/09/2024 8:00 AM CDT Internal E-Consult Department of Vascular Medicine in [address] [phone] Fran Gracia M.D. 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 Aneurysm Abdominal Aortic Personal History (Primary Dx) 05/03/2024 8:42 AM CDT - 05/03/2024 11:59 PM CDT Hospital Encounter Department of Radiology in [address] [phone] Devi Stafford APRN, C.N.PDavis, M.S.N. Prosthesis Aortic Valve Discharge Disposition: Home or Self Care 04/03/2024 Clinical Communication Division of Endocrinology in [address] [phone] Zara Garvey APRN, C.N.P., D.N.P. 03/27/2024 8:57 AM CDT - 03/27/2024 11:59 PM CDT Hospital Encounter Department of Laboratory Medicine and Pathology, [facility] in [place], [place] [address] [place] [phone] Zara Garvey APRN, C.N.P., D.N.P. Malignant Neoplasm Of Thyroid Papillary (HCC) Discharge Disposition: Home or Self Care 03/22/2024 4:00 AM CDT - 03/22/2024 11:59 PM CDT Hospital Encounter Department of Cardiovascular Diseases in [place], [place] [address] [place] [address] Julian Garduno M.D., Ph.D. Encounter For Checking And Testing Of Cardiac Pacemaker Pulse Generator Battery Discharge Disposition: Home or Self Care 03/12/2024 Clinical Communication Department of Cardiovascular Medicine in [place], [place] [address] [place] [address] Devi Stafford APRN, C.N.P., M.S.N. Pre-visit Testing Orders from Last 3 Months Allergies Active Allergy [...] 1 tablet by mouth daily. Centrum (per plate sensitizer) 8 Active acetaminophen (TYLENOL) 500 mg tablet Take 500-1,000 mg by mouth every 6 (six) hours as needed for pain. Active omeprazole (PriLOSEC) [address] capsuleSelwyn ns:Gastroesophag eal Reflux Disease TAKE ONE CAPSULE [...] Papillary 02/10/20 17 Anemia Of Renal Failure News Commentator nirmala Kidney Disease On Erythropoietin 01/30/2017 Flutter [...] 0.6 oz pu re alcohol) occassional [facility] Utilities Answer Date Recorded In the past 12 months has e [employer], gas, oil, or water [employer] threatened to shut off services in your [...] often do you attend [facility] or mandaeism services? 1 to 4 times [...] Answer Date Recorded PHQ-2 Score 5 01/25/2019 [facility] - Occupational Stress Questionnaire Answer Date [...] your living situation today? I have a [facility] place to live 12/01/2023 Education Answer [...] Comments Blood Pressure 138/86 09/25/2023 3:03 PM POWER SUPPLY ENGINEER Pulse 73 09/25/2023 3:03 PM POWER SUPPLY ENGINEER Temperature 36.6 ??C (97.9 ??F) 04/10/2023 10:00 AM C DT Respiratory Rate 16 04/10/2023 6:41 AM CDT Oxygen Saturation 94% 04/10/2023 10:10 AM CDT Inhaled Oxygen Concentration - - Weight 72 kg (158 lb 12.8 oz) 09/25/2023 3:03 PM POWER SUPPLY ENGINEER Height 170.1 cm (5' 6.97) 09/25/2023 3:03 PM CS T Body Mass Index 24.89 09/25/2023 3:03 PM POWER SUPPLY ENGINEER Plan of Treatment Upcoming Encounters Date Type Department Care Team (Late st Contact Info) Description 06/18/2024 2:30 PM POWER SUPPLY ENGINEER Office Visit Division of Endocrinology in [place], [place] [address] [place] [address] Ciara Hebert M.D. [address] [place] [address] Medical Devices Implanted Type Area Neuropsychology Medical Consultant Device Identifier Shelf Expiration Date Model / Serial / Lot Lead [id number] Biodiesel Process Control Technician Attain Ability - Darling [id number] Implanted:Qty: 1 on 10/09/2017 Cardiac Lead Coronary Medtronic / [id number] / Description:Device Manufactu rer - Medtronic [employer] Body Location - Other. Coronary Sinus. Device Status Text - CARD [id number]. Conversions - Default Historical Implant Device Implanted:03/07 (Quantity not on file) Cardiac Valve Prosthesis Aorta Description:Device Status Te xt - CardValve. pig valve placed on 11-16-2016. Mesh Or Patch-08/14/2022 Implanted:08/14 (Quantity not on file) Mesh or Patch Stomach Description:Hernia Mesh 2 Dental Bridges Misc Other Mouth Description:Upper and Lower Dental Bridge. Pacer Preeti Xt Sr Mri - Darling [id number] Implanted:Qty: 1 on 10/09/2017 Pacemaker Other/Legacy - See Implant Description Medtronic / [id number] / Description:Device Manufactu rer - Smart Mocha. Body Location - Other. Left. Device Status Text - [id number]. Vascular Other-08/14/2016 Implanted:08/14 (Quantity not on file) [...] ECHO DOPPLER COLOR (06/04/2024 2:03 PM CDT) [facility] Ejection Fraction 55 MC CV EIMS Mid-Ascending [...] report, see the Order-Level Documents. Devi Stafford APRN, C.N.P., M.S.N. CV ECHO PROCEDURES Final Result * ECG 12 Lead (06/04/2024 9:21 AM CDT) Ventricular Rate ECG/Min 68 BPM MUSE QRSD Interval 198 ms MUSE QT Interval 504 ms MUSE QTC Interval 537 ms MUSE R Rawson 113 degrees MUSE T Wave Rawson -47 degrees MUSE 06/04/2024 9:21 AM CDT [...] spine. The chest is otherwise unremarkable. Devi Nixon Mercy Stafford APRN, M.S.N. IMG DIAGNOSTIC IMAGING PROCEDURES Final Result [...] D ADD-ON Final Result Performing Organization Address [facility] Co de Phone Number [facility] [address] [place], [place] [address] [place] [address] * (ABNORMAL) NT-Pro B-Type Natriuretic Peptide (BNP) (06/04/2024 8:54 AM CDT) NT-Pro BNP 2390(H) <=540 pg/mL 06/04/2024 10:12 [...] AM CDT 06/04/2024 9:43 AM CDT Devi Tiffani Stafford APRN, C.N.P., M.S.N. LAB BLOO D ADD-ON Final Result Performing Organization Address [facility] de Phone Number [facility] 200 [place], [place] [phone] [place] [address] 200 [place] [address] * (ABNORMAL) Prothrombin Time (PT) (06/04/2024 8:54 AM CDT) Prothrombin Time, P 41.3(H) 9.4 - 12.5 sec 06/04/2024 9:58 AM CDT DTL INR 3.7 0.9 - 1.1 06/04/2024 9:58 AM CDT DTL Comment: ----ADDITIONAL INFORMATION---- Standard intensity warfarin therapeutic range: 2.0 to 3.0 ?? High intensity warfarin therapeutic range: 2.5 to 3.5 Blood (Blood, Venous) 06/04/2024 8:54 AM CDT 06/04/2024 9:17 AM CDT Devi Stafford APRN, C.N.P., M.S.N. LAB BLOO D ADD-ON Final Result [facility] [address] [place] [address], [facility] [address] [place] [address] * (ABNORMAL) CBC with Differential, Blood (06/04/2024 8:54 AM CDT) Pathologist [facility] Hemoglobin 14.2 13.2 - 16.6 g/dL 06/04/2024 [...] 8:54 AM CDT 06/04/2024 9:17 AM CDT Jass Barnard APRN.N.P., M.S.N. LAB BLOO D ADD-ON Final Result [facility] [address] [place] [address], [facility]3] [address] [place], [place] [address] [place] [address] 200 [place] [address] * Sodium (06/04/2024 8:54 AM CDT) Sodium, S 141 135 - 145 mmol/L 06/04/2024 10:12 AM CDT DT Blood (Blood, Venous) 06/04/2024 8:54 AM CDT 06/04/2024 9:43 AM CDT Jass Barnard APRN.N.P., M.S.N. LAB BLOO D ADD-ON Final Result [facility] [address] [place] [address], [facility]3] 200 [place] [address] * Potassium (06/04/2024 8:54 AM CDT) Potassium, S 4.5 3.6 - 5.2 mmol/L 06/04/2024 10:12 AM CDT DTL Blood (Blood, Venous) 06/04/2024 8:54 AM CDT 06/04/2024 9:43 AM CDT Devi Stafford APRN, C.N.P., M.S.N. LAB BLOO D ADD-ON Final Result Performing Organization Address City/[facility] Co de Phone Number [facility] [address] [place] [address], [address] [address] * (ABNORMAL) Glucose, Fasting (06/04/2024 8:54 AM CDT) Glucose, P 107(H) 70 - 100 mg/dL 06/04/2024 9:37 AM CDT DTL Last Intake 15 hr 06/04/2024 9:21 AM CDT DTL Blood (Blood, Venous) 06/04/2024 8:54 AM CDT 06/04/2024 9:21 AM CDT Devi Nixon Seven Stafford APRNNTato, M.S.N. LAB BLOO D NON ADD-ON Final Result Performing Organization Address [facility] Co de Phone Number [facility] [address] [place] [address], [facility]3] [address] [place] [address] * (ABNORMAL) Creatinine with Estimated GFR (06/04/2024 [...] D ADD-ON Final Result Performing Organization Address [facility]/ZIP Co de Phone Number [facility] [address] [place], [place] [address] [place] [address] 200 [place] [address] * Albumin (06/04/2024 8:54 AM CDT) Albumin, S 4.2 3.5 - 5.0 g/dL 06/04/2024 10:12 AM CDT DTL Blood (Blood, Venous) 06/04/2024 8:54 AM CDT 06/04/2024 9:43 AM CDT Devi Stafford APRN, C.N.P., M.S.N. LAB BLOO D ADD-ON Final Result Performing Organization Address [facility] Co de Phone Number [facility] [address] [place], [place] [address] [place] [address] 200 [place] [address] * US Aorta (05/03/2024 9:28 AM CDT) [...] measuring 1.7 cm, previously 1.6cm. Devi Stafford APRN, C.N.P., M.S.N. [facility] P ROCEDURES Edited Result - Final * PACER REMOTE FOLLOW UP (03/27/2024 12:50 PM CDT) Date Time Interrogation Session [id number] [facility] Implantable Pulse Generator Neuropsychology Medical Consultant Medtronic [facility] Implantable Pulse Generator Model [id number] Preeti XT SR MRI [facility] Implantable Pulse Generator Serial Number [id number] [facility] Type Interrogation Session Remote [facility] Clinic Name [facility] Implantable Pulse Generator Type Pacemaker [facility] Implantable Pulse Generator Implant Date 20171009 [facility] Implantable Lead Neuropsychology Medical Consultant Medtronic [facility] Implantable Lead Model 4196 Attain Ability MRI SureScan [facility] Implantable Lead Serial Number [id number] [facility] Implantable Lead Implant Date [id number] [facility] Implantable Lead Polarity Type Bipolar [...] LAB SYSTEM Zone Setting Type Category VT [facility] Zone Setting Type Category VT [facility] Zone Setting Detection Interval 360 ms [facility] Zone Setting Type Category ATRIAL_FIBRILLATI ON [facility] Zone Setting Type Category AT/AF [facility] Lead Channel Impedance Value 855 ohm [facility] Lead Channel Impedance Value 361 ohm [facility] Lead Channel Sensing Intrinsic Amplitude 19.75 mV [facility] Lead Channel Sensing Intrinsic Amplitude 19.75 mV [facility] Lead Channel Pacing Threshold Amplitude 1.5 V [facility] Lead Channel Pacing Threshold Pulse Width 0.4 ms [facility] Battery Date Time of Measurements [id number] [facility] Battery SUPPLIER QUALITY SPECIALIST Trigger 2.625 [facility] Battery Remaining Longevity 87 mo [facility] Battery Voltage 2.99 V [facility] Cholo Statistic Date Time Start [id number] [facility] Cholo Statistic Date Time End [id number] [facility] Cholo Statistic RV Percent Paced 99.44 % [facility] Episode Statistic Recent Count 0 [facility] Episode Statistic Type Category Patient Activated [facility] Episode Statistic Recent Count 0 [facility] Episode Statistic Type Category VT [facility] Episode Statistic Recent Count 0 [facility] Episode Statistic Type Category VT [...] SYSTEM Episode Statistic Total Date Time Start [id number] [facility] Episode Statistic Total Date Time End [facility] Anatomical Region Laterality Modality Other 03/21/2024 11:5 8 PM CDT Narrative 03/28/2024 2:20 PM CDT PURPOSE OF VISIT: ??Routine remote transmission. PRESENTING EGM: ??CUSTOM FEED CORN OPERATOR at 60 bpm VENTRICULAR ARRHYTHMIAS: ?No [...] OD ADD-ON Final Result Performing Organization Address [facility] Co de Phone Number [facility] [address] [place] [address] * (ABNORMAL) T4 (Thyroxine), Free (03/27/2024 9:12 AM CDT) T4 (Thyroxine), Free, S 2.4(H) 0.9 - 1.7 ng/dL 03/27/2024 10:17 AM CDT DTL Blood (Blood, Venous) 03/27/2024 9:12 AM CDT 03/27/2024 9:52 AM CDT Zara Garvey APRN, C.N.P., D.N.P. LAB BLO OD ADD-ON Final Result Performing Organization Address [facility] Co de Phone Number [facility] [address] [place] [address], [facility]3] [address] [place] [address] from Last 3 Months Insurance [facility] Advance Directives For more information, please contact: [phone] Documents on File Type Date Recorded Patient Pairer Expl anation Advance Directives 2002 12:00 AM [...] Answer Comments Full Code: Discussed Care Teams Contract Sheltered Workshop Supervisor Relationship Specialty Start Date End Date Elsewhere, Pcp PCP - General Internal Medicine 09/13/22
--- OUTSIDE RECORDS SUMMARY | 2024-06-06 08:39 | XMS_ITS ---
Author Organization [facility] Address [address] [place] [address] Care Team Providers Care Fresh Work Wrapper Layer Name Role Phone Elsewhere, Pcp Primary Care [...] Papillary 02/10/20 17 Anemia Of Renal Failure Metal Finisher nirmala Kidney Disease On Erythropoietin 01/30/2017 Flutter Atrial 01/30/2017 Current Oncology Plans No current plan information found. Past Plans Radiation Treatments * No radiation treatments are documented for this patient in [facility]. Treatments may have been administered [...]
--- OUTSIDE RECORDS SUMMARY | 2024-06-06 08:39 | XMS_ITS | Encounter Summary ---
Author Organization [facility] Address [address] [place] [address] Care Team Providers Care Supervisor Roller Printing Name Role Phone Elsewhere, Pcp Primary Care Provider Unavailabl e Reason for Referral * Outpatient (Routine) - Closed Specialty Diagnoses / Procedures Referred By Contac t Referred To Contact Diagnoses Prosthesis Aortic Valve Procedures DX Chest AP or PA and Lateral 2 Views Devi Stafford APRN, C.NTripp., M.S.N. [address] [place] [address] Phone: tel: fax: [facility] Referral ID Status Reason Start Date Expiration Date Visits Re quested Visits Authorized [id number] Closed 05/02/2023 05/01/2024 1 1 Reason for Visit * Outpatient (Routine) - Closed Specialty Diagnoses / Procedures Referred By Contac t Referred To Contact Diagnoses Prosthesis Aortic Valve Procedures DX Chest AP or PA and Lateral 2 Views Devi Stafford APRN, C.N.P., M.S.N. [address] [place] [address] Phone: tel: fax: [facility] Referral ID Status Reason Start Date Expiration Date Visits Re quested Visits Authorized [id number] Closed 05/02/2023 05/01/2024 1 1 Encounter Details Date Type Department Care Team (Latest Contact Info) Description 06/04/2024 8:56 AM CDT - 06/04/2024 11:41 AM CDT Hospital Encounter Department of Radiology, [facility], in [place], [place] [address] [place] [phone] Devi Stafford APRN, C.N.P., M.S.N. [address] [place] [phone] Prosthesis Aortic Valve Discharge Disposition: Home or Self Care Social History Tobacco Use Types Packs/Day Years Used Date Smoking Tobacco: Former Cigarettes 0 01/12/1955 - 02/10/1985 Smokeless Tobacco: Never Alcohol Use Standard Drinks/Week Comments Yes 10 (1 standard drink = 0.6 oz pu re alcohol) occassional [facility] Utilities Answer Date Recorded In the past [address] [facility] [employer], gas, oil, or water [employer] threatened to shut off services in your [...] 08/07/2022 How often do you attend [facility] or judaism services? 1 to 4 times per year [...] PHQ-2 Score 5 01/25/2019 [facility] - Occupational Stress Questionnaire Answer [...] 1 tablet by mouth daily. Centrum (per teacher of family and consumer science) 10/09/2017 omeprazole (PriLOSEC) [address] capsuleIndication [...] st Contact Info) Description 06/18/2024 2:30 PM WASTE ELIMINATION Office Visit Division of Endocrinology in [place], [place] [address] [place] [address] Ciara Hebert M.D. [address] [place] [address] documented as of this encounter Procedures Procedure Name Priority Date/Time Associated Diagnosis Comments DX CHEST AP OR PA AND LATERAL 2 VIEWS RAD - Routine (most inpatients and all outpatients) 06/04/2024 9:19 AM CDT Prosthesis Aortic Valve documented in [...] The chest is otherwise unremarkable. Devi Stafford APRN C.N .P., M.S.N. IMG DIAGNOSTIC IMAGING PROCEDURES Final Result documented in this encounter Visit Diagnoses Diagnosis Prosthesis Aortic Valve documented in this encounter Additional Health Concerns Assessment Noted Time PHQ-9 Depression Total Score: 5 03/06/20 18 6:00 PM CDT documented as of this encounter Care Teams Supervisor Roller Printing Relationship Specialty Start Date End Date Elsewhere, Pcp PCP - General Internal Medicine 09/13/22 documented as of this encounter
--- OUTSIDE RECORDS SUMMARY | 2024-06-06 08:39 | XMS_ITS ---
Author Organization [facility] Address [address] [place] [address] Care Team Providers Care Employee Wellness/Fitness Coordinator Name Role Phone Unavailable Unavailable Unavailable Surgery Details Not on file Complications Check Surgery Details section. Procedure Estimated Blood Loss Check Surgery Details section. Procedure Findings Check Surgery Details section. Procedure Specimens Taken Check Surgery Details section.
--- OUTSIDE RECORDS SUMMARY | 2024-06-06 08:39 | XMS_ITS | Encounter Summary ---
Author Organization [facility] Address [address] [place] [address] Care Team Providers Care Viscosity Tester Name Role Phone Elsewhere, Pcp Primary Care Provider Unavailabl e Reason for Referral * Outpatient (Routine) - Authorized Specialty Diagnoses / Procedures Referred By Contac t Referred To Contact Diagnoses Prosthesis Aortic Valve Procedures ECG 12 Lead Devi Stafford APRN, C.NTato, M.S.N. [address] [place] [phone] Phone: tel: fax: [facility] Referral ID Status Reason Start Date Expiration Date V isits Requested Visits Authorized [id number] Authorized 06/04/2024 06/04/2025 1 1 * Cardiovascular-Diagnostic (Routine) - Authorized Specialty Diagnoses / Procedures Referred By Contac t Referred To Contact Diagnoses Prosthesis Aortic Valve Procedures Echo Transthoracic (TTE) - Complex Valvular Heart Disease Devi Stafford APRN, C.N.Marilee., M.S.N. [address] [place] [address] Phone: tel: fax: [facility] Referral ID Status Reason Start Date Expiration Date V isits Requested Visits Authorized [id number] Authorized 06/04/2024 06/04/2025 1 1 * Outpatient (Routine) - Authorized Specialty Diagnoses / Procedures Referred By Jennac t Referred To Contact Diagnoses Prosthesis Aortic Valve Procedures DX Chest AP or PA and Lateral 2 Views Devi Stafford APRN, C.N.P., M.S.N. [address] [place] [phone] Phone: tel: fax: [facility] Referral ID Status Reason Start Date Expiration Date V isits Requested Visits Authorized [id number] Authorized 06/04/2024 06/04/2025 1 1 * Outpatient (Routine) - Authorized Specialty Diagnoses / Procedures Referred By Jennac t Referred To Contact Cardiovascular Disease Devi Stafford APRN, C.N.P., M.S.N. [address] [place] [phone] Phone: tel: fax: [facility] Referral ID Status Reason Start Date Expiration Date V isits Requested Visits Authorized [id number] Authorized 06/04/2024 12/04/2025 1 1 * Outpatient (Routine) - Authorized Specialty Diagnoses / Procedures Referred By Contac t Referred To Contact Diagnoses Aneurysm Abdominal Aortic Personal History Procedures US Aorta Devi Stafford APRN, C.N.P., M.S.N. [address] [place] [phone] Phone: tel: fax: [facility] Referral ID Status Reason Start Date Expiration Date V isits Requested Visits Authorized [id number] Authorized 06/04/2024 06/04/2025 1 1 Reason for Visit * Outpatient (Routine) - Closed Specialty Diagnoses / Procedures Referred By Jessica patel Referred To Contact Cardiovascular Disease Devi Stafford APRN, C.N.P., M.S.N. [address] [place] [phone] Phone: tel: fax: [facility] Referral ID Status Reason Start Date Expiration Date Visits Re quested Visits Authorized [id number] Closed 05/02/2023 05/01/2026 1 1 Encounter Details Date Type Department Care Team (Late st Contact Info) Description 06/04/2024 2:15 PM CDT Office Visit Department of Cardiovascular Medicine in [place], [place] [address] [place] [phone] Devi Stafford APRN, C.N.P., M.S.N. [address] [place] [phone] Prosthesis Aortic Valve (Primary Dx); Aneurysm Abdominal Aortic Personal History Social History Tobacco Use Types Packs/Day Years Used Date Smoking Tobacco: Former Cigarettes 0 01/12/1955 - 02/10/1985 Smokeless Tobacco: Never Alcohol Use Standard Drinks/Week Comments Yes 10 (1 standard drink = 0.6 oz pu re alcohol) occassional [facility] Utilities Answer Date Recorded In the past 12 months has [facility] [employer], oil, or water [employer] threatened to shut off services in your [...] week 08/07/2022 How often do you attend [facility] or orthodox services? 1 to 4 times per year 08/07/2022 Do you belong to any clubs o r organizations such as nondenominational groups, unions, fraternal or athletic groups, or [...] Answer Date Recorded PHQ-2 Score 5 01/25/2019 [facility] ional [facility] - Occupational [...] your living situation today? [facility] 12/01/2023 Education Answer [...] of this encounter Progress Notes * Devi Stafford APRN C.N.P., M.S.N. - 06/04/2024 2:15 PM CDT Cardiovascular Consult Note SUBJECTIVE Referring Provider: Devi Stafford APRN C.N.P., M.S.N. CHIEF COMPLAINT/REASON FOR CONSULT AVR HISTORY OF PRESENT ILLNESS Mr. Jose Kearney is a very pleasant 83 y.o. 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 He also has history of nonischemic cardiomyopathy and atrial fibrillation and flutter. He also has advanced renal dysfunction. Mr. Kearney states he has been feeling well from a heart standpoint. He went grouse hunting last weekend and felt very well doing this. He has been active walking. He still endorses some shortness of breath when he climbs stairs but states this has been stable. He denies any chest pain, edema, lightheadedness, syncopal episodes, or palpitations. Does go to the dentist 1 to 2 times a year. REVIEW OF SYSTEMS Pertinent items are noted in HPI; all other review of systems was negative. The following portions of the patient's history were reviewed and updated as appropriate: allergies, current medications, family history, medical history, social history, surgical history and problemlist. OBJECTIVE There were no vitals filed for this visit. BP Readings from Last 3 Encounters: 09/25/23 138/86 04/10/23 (!) 169/100 04/03/23 138/70 PHYSICAL EXAMINATION General: Alert, cooperative, no distress, [...] have been reviewed and are notable for: Appointment on 06/04/2024 Component Date Value Ventricular Rate ECG/Min 06/04/2024 68 QRSD Interval 06/04/2024 198 QT Interval 06/04/2024 504 QTC Interval 06/04/2024 537 R [place] 06/04/2024 113 T Wave [place] 06/04/2024 -47 Hospital Outpatient Visit on 06/04/2024 Component Date Value Albumin, S 06/04/2024 4.2 Creatinine 06/04/2024 2.26 (H) Estimated GFR (eGFR) 06/04/2024 28 (L) Glucose, P 06/04/2024 107 (H) Last Intake 06/04/2024 15 Potassium, S 06/04/2024 4.5 Sodium, S 06/04/2024 141 Prothrombin Time, P 06/04/2024 41.3 (H) INR 06/04/2024 3.7 Hemoglobin 06/04/2024 14.2 Hematocrit 06/04/2024 42.8 Erythrocytes 06/04/2024 4.55 MCV 06/04/2024 94.1 RBC Distrib Width 06/04/2024 12.9 Platelet Count 06/04/2024 188 Leukocytes 06/04/2024 5.9 Neutrophils 06/04/2024 3.83 Lymphocytes 06/04/2024 0.79 (L) Monocytes 06/04/2024 0.70 Eosinophils 06/04/2024 0.45 Basophils 06/04/2024 0.08 Triglycerides 06/04/2024 79 Cholesterol, Total 06/04/2024 142 Cholesterol, LDL, Calcul* 06/04/2024 84 Cholesterol, HDL, S 06/04/2024 43 Cholesterol, Non-HDL, Ca* 06/04/2024 99 Fasting (8 HR or more) 06/04/2024 Yes NT-Pro BNP 06/04/2024 2390 (H) Pertinent imaging studies have been reviewed and are notable for: ECG: Narrative & Impression IMPRESSION: Ventricular-paced rhythm Atrial fibrillation Prolonged QT When compared with ECG of 02-May-2023 09:35, Vent. rate has decreased by 11 bpm Reviewed by ART Lopez Chest x-ray: IMPRESSION: Compared with the 05/02/23 chest radiograph. Improved aeration with decreased left greater than right basilar atelectasis and decrease accentuation of the normal cardiac silhouette. Calcified tortuousthoracic aorta, AVR, intact sternotomy wires and mediastinal clips are again visualized. Single-chamber pacemaker is again seen. Right upper quadrant surgical clips. Similar degenerative changes of the spine. The chest is otherwise unremarkable. Transthoracic Echocardiogram: Final Impressions 1. Normal mid ascending aorta diameter of 32 mm (status post ascending aorta graft repair in 2007).Known large pseudoaneurysm, primarily thrombosed, adjacent to the ascending aorta was again visualized. 2. 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 3. Aortic valve prosthesis systolic mean Doppler gradient 12 mmHg. 4. Mildly enlarged left ventricular chamber size, calculated 2-D biplane volumetric ejection fraction of 55%. 5. Abnormal left ventricular geometry with concentric remodeling (increased wall thickness to cavity ratio), [...] significant change has occurred. Side by side comparisonof images performed. ASSESSMENT / PLAN #1 Status post 23 mm aortic valve Mcclelland II prosthesis, at outside facility (07-MAR-2017) #2 abdominal aortic aneurysm Mr. Kearney continues to do well from a heart standpoint. He denies any new cardiac symptoms. His INRs today was elevated at 3.7 and he will contact his home INRs clinic to discuss getting this rechecked. His abdominal ultrasound showed a slight increase in his abdominal aorta. We will get this rechecked again in 1 year. His echocardiogram shows that his aortic prosthesis is functioning normally. His LV size and function have remained stable. He has stable moderate tricuspid regurgitation. We discussed symptoms to bewatchful for would plan on follow-up again in a year. He was in agreement with the outlined plan. All questions were answered. Electronically signed by: Devi Stafford APRN, C.N.Marilee., M.S.N. 06/04/24 2:15 PM CDT documented in this encounter Plan of Treatment Upcoming Encounters Date Type Department Care Team (Late st Contact Info) Description 06/18/2024 2:30 PM ADJUNCT BUSINESS INSTRUCTOR Office Visit Division of Endocrinology in [place], [place] [address] [place] [address] Ciara Hebert M.D. [address] [place] [address] Scheduled Orders Name Type Priority Associated Diagnoses Order Schedule US Aorta Imaging RAD - Routine (most inpatients and all outpatients) Aneurysm Abdominal Aortic Personal History Expected: 06/04/2025, Expires: 09/04/2025 Creatinine with Estimated GFR Lab Routine Prosthesis Aortic Valve Expected: 06/04/2025 (Approximate), Expires: 06/04/2026 Glucose, Fasting Lab Routine Prosthesis Aortic Valve Expected: 06/04/2025 (Approximate), Expires: 06/04/2026 Potassium Lab Routine Prosthesis Aortic Valve Expected: 06/04/2025 (Approximate), Expires: 06/04/2026 Sodium Lab Routine Prosthesis Aortic Valve Expected: 06/04/2025 (Approximate), Expires: 06/04/2026 Prothrombin Time (PT) Lab Routine Prosthesis Aortic Valve Expected: 06/04/2025 (Approximate), Expires: 06/04/2026 CBC with Differential, Blood Lab Routine Prosthesis Aortic Valve Expected: 06/04/2025 (Approximate), Expires: 06/04/2026 DX Chest AP or PA and Lateral 2 Views Imaging RAD - Routine (most inpatients and all outpatients) Prosthesis Aortic Valve Expected: 06/04/2025 (Approximate), Expires: 06/04/2026 NT-Pro B-Type Natriuretic Peptide (BNP) Lab Routine Prosthesis Aortic Valve Expected: 06/04/2025 (Approximate), Expires: 06/04/2026 Echo Transthoracic (TTE) - Complex Valvular Heart Disease Echocardiography Routine Prosthesis Aortic Valve Expected: 06/04/2025 (Approximate), Expires: 09/04/2025 ECG 12 Lead ECG Routine Prosthesis Aortic Valve Expected: 06/04/2025 (Approximate), Expires: 09/04/2025 Scheduled Referrals Name Type Priority Associated Diagnoses Order Schedule Cardiovascular Disease office visit (clinic) Outpatient Referral Routine Expect ed: 06/04/2025 (Approximate), Expires: 09/04/2025 documented as of this encounter Visit Diagnoses Diagnosis Prosthesis Aortic Valve- Primary Aneurysm Abdominal Aortic Personal History documented in this encounter Additional Health Concerns Assessment Noted Time PHQ-9 Depression Total Score: 5 03/06/20 18 6:00 PM CDT documented as of this encounter Care Teams Viscosity Tester Relationship Specialty Start Date End Date Elsewhere, Pcp PCP - General Internal Medicine 09/13/22 documented as of this encounter
--- OUTSIDE RECORDS SUMMARY | 2024-06-06 08:39 | XMS_ITS | Encounter Summary ---
Author Organization [facility] Address [address] [place] [address] Care Team Providers Care Votator Machine Operator Name Role Phone Elsewhere, Pcp Primary Care Provider Unavailabl e Encounter Details Date Type Department Care Team (Latest Contact Info) Description 06/04/2024 8:20 AM CDT - 06/04/2024 8:55 AM CDT Hospital Encounter Department of Laboratory Medicine and Pathology, [facility] in [place], [place] [address] [place] [address] Devi Stafford, ROSAURA, C.N.P., M.S.N. [address] [place] [phone] Prosthesis Aortic Valve Discharge Disposition: Home or [...] often do you attend chur ch or holiness services? 1 to 4 times [...] Answer Date Recorded PHQ-2 Score 5 01/25/2019 [facility] [place] of Occupat ional Health - Occupational Stress [...] your living situation today? I have a [facility] place to live 12/01/2023 Education Answer [...] 1 tablet by mouth daily. Centrum (per income tax manager) 10/09/2017 omeprazole (PriLOSEC) [address] capsuleIndication [...] st Contact Info) Description 06/18/2024 2:30 PM CATERING STAFF MEMBER Office Visit Division of Endocrinology in [place], [place] [address] [place] [address] Ciara Hebert M.D. 200 [place] [address] documented as of this encounter Procedures Procedure Name Priority Date/Time Associated Diagnosis Comments LIPID PANEL, S Routine 06/04/2024 8:54 AM CDT Prosthesis Aortic Valve NT-PRO B-TYPE [...] 06/04/2024 8:54 AM CDT Prosthesis Aortic Valve documented in [...] CDT 06/04/2024 9:43 AM CDT Seven Barnard APRNNTato, M.S.N. LAB BLOO D ADD-ON Final Result [facility] [place] [address] [place] [address], [facility] [address] [place] [address] * Lipid Panel (06/04/2024 8:54 AM CDT) [...] AM CDT 06/04/2024 9:43 AM CDT Devi Seven Aranda APRNNTato, M.S.N. LAB BLOO D ADD-ON Final Result [facility] [place] [address] [place] [address], [facility] DTL [facility] [address] [place] [address] * (ABNORMAL) CBC with Differential, Blood (06/04/2024 [...] CDT 06/04/2024 9:17 AM CDT Seven Barnard APRNN.P., M.S.N. LAB BLOO D ADD-ON Final Result Performing Organization Address City/[facility]/ZIP Co de Phone Number [facility] [place] [address] [place], [place] [phone] [place] [address] [facility] [address] [place] [address] * (ABNORMAL) Prothrombin Time (PT) (06/04/2024 8:54 AM CDT) [facility] Prothrombin Time, P 41.3(H) 9.4 - 12.5 [...] D ADD-ON Final Result Performing Organization Address City/[facility]/ZIP Co de Phone Number [facility] [place] [address] [place], [place] [address] [address] [place] [address] * Sodium (06/04/2024 8:54 AM CDT) Sodium, S 141 135 - 145 mmol/L 06/04/2024 10:12 AM CDT DTL Blood (Blood, Venous) 06/04/2024 8:54 AM CDT 06/04/2024 9:43 AM CDT Jass Barnard APRN.N.P., M.S.N. LAB BLOO D ADD-ON Final Result Performing Organization Address [facility] Co de Phone Number [facility] [place] [address] [place] [address] * Potassium (06/04/2024 8:54 AM CDT) Potassium, S 4.5 3.6 - 5.2 mmol/L 06/04/2024 10:12 AM CDT DTL Blood (Blood, Venous) 06/04/2024 8:54 AM CDT 06/04/2024 9:43 AM CDT Jass Barnard APRN.N.Marilee., M.S.N. LAB BLOO D ADD-ON Final Result Performing Organization Address [facility] de Phone Number [facility] [place] [address] [place] [address] * (ABNORMAL) Glucose, Fasting (06/04/2024 8:54 AM CDT) Glucose, P 107(H) 70 - 100 mg/dL 06/04/2024 9:37 AM CDT DTL Last Intake 15 hr 06/04/2024 9:21 AM CDT DTL Blood (Blood, Venous) 06/04/2024 8:54 AM CDT 06/04/2024 9:21 AM CDT Jass Barnard APRN.N.P., M.S.N. LAB BLOO D NON ADD-ON Final Result [facility] [place] [address] 200 [place] [address] * (ABNORMAL) Creatinine with Estimated GFR (06/04/2024 8:54 AM CDT) Creatinine 2.26(H) 0.74 - 1.35 mg/dL 06/04/2024 10:12 AM CDT DTL Estimated GFR (eGFR) 28(L) >=60 mL/min/BSA 06/04/2024 10:12 AM CDT DT Comment: Estimated GFR calculated using the 2020 CKD_EPI creatinine equation. Blood (Blood, Venous) 06/04/2024 8:54 AM CDT 06/04/2024 9:43 AM CDT Seven Barnard APRNNTripp., M.S.N. LAB BLOO D ADD-ON Final Result [facility] [place] [address] [place] [address] * Albumin (06/04/2024 8:54 AM CDT) Albumin, S 4.2 3.5 - 5.0 g/dL 06/04/2024 10:12 AM CDT DT Blood (Blood, Venous) 06/04/2024 8:54 AM CDT 06/04/2024 9:43 AM CDT Jass Barnard APRN.N.P., M.S.N. LAB BLOO D ADD-ON Final Result [address] [facility] [place] [address] [place] [address] documented in this encounter Visit Diagnoses Diagnosis Prosthesis Aortic Valve documented in this encounter Additional Health Concerns Assessment Noted Time PHQ-9 Depression Total Score: 5 03/06/20 18 6:00 PM CDT documented as of this encounter Care Teams Votator Machine Operator Relationship Specialty Start Date End Date Elsewhere, Pcp PCP - General Internal Medicine 09/13/22 documented as of this encounter
--- OUTSIDE RECORDS SUMMARY | 2024-06-06 08:39 | XMS_ITS | Encounter Summary ---
Author Organization [facility] Address [address] [place] [address] Care Team Providers Care Geographic Information Systems Analyst Name Role Phone Elsewhere, Pcp Primary Care Provider Unavailabl e Reason for Visit * Reason Onset Date Comments Pre-visit Intake 05/28/2024 Encounter Details Date Type Department Care Team (Latest Contact Info) Description 05/28/2024 10:00 AM CDT Clinical Communication Virtual Review in [address] [phone] Pre-visit Intake Social History Tobacco Use Types Packs/Day Years Used Date Smoking Tobacco: Former Cigarettes 0 01/12/1955 - 02/10/1985 Smokeless Tobacco: Never Tobacco Cessation:Counseling Given: Not Answered Alcohol Use Standard Drinks/Week Comments Yes 10 (1 standard drink = 0.6 oz pu re alcohol) occassional [facility] Utilities Answer Date Recorded In the past 12 months has [facility] [employer], gas, oil, or water [employer] threatened to shut off services in your [...] any clubs o r organizations such as jewish groups, unions, fraternal or athletic groups, or [...] Answer Date Recorded PHQ-2 Score 5 01/25/2019 [facility] - Occupational Stress Questionnaire Answer Date [...] your living situation today? I have a [facility] place to live 12/01/2023 Education [...] st Contact Info) Description 06/18/2024 2:30 PM AIRCRAFT INSTRUMENT MECHANIC Office Visit Division of Endocrinology in [place], [place] [address] [place] [address] Ciara Hebert M.D. [address] [place] [address] documented as of this encounter Visit Diagnoses Not on filedocumented in this encounter Additional Health Concerns Assessment Noted Time PHQ-9 Depression Total Score: 5 03/06/20 18 6:00 PM CDT documented as of this encounter Care Teams Geographic Information Systems Analyst Relationship Specialty Start Date End Date Elsewhere, Pcp PCP - General Internal Medicine 09/13/22 documented as of this encounter
--- OUTSIDE RECORDS SUMMARY | 2024-06-06 08:39 | XMS_ITS | Encounter Summary ---
Author Organization [facility] Address [address] [place] [address] Care Team Providers Care House Calls Nurse Name Role Phone Elsewhere, Pcp Primary Care Provider Unavailabl e Reason for Referral * Outpatient (Routine) - Closed Specialty Diagnoses / Procedures Referred By Jessica patel Referred To Contact Diagnoses Prosthesis Aortic Valve Procedures Echo Transthoracic (TTE) - Complex Valvular Heart Disease Devi Stafford APRN, C.N.P., M.S.N. [address] [place] [address] Phone: tel: fax: [facility] Referral ID Status Reason Start Date Expiration Date Visits Re quested Visits Authorized [id number] Closed 05/02/2023 05/01/2024 1 1 Reason for Visit * Outpatient (Routine) - Closed Specialty Diagnoses / Procedures Referred By Contac t Referred To Contact Diagnoses Prosthesis Aortic Valve Procedures Echo Transthoracic (TTE) - Complex Valvular Heart Disease Devi Stafford APRN C.N.P., M.S.N. [address] [place] [address] Phone: tel: fax: [facility] Referral ID Status Reason Start Date Expiration Date Visits Re quested Visits Authorized [id number] Closed 05/02/2023 05/01/2024 1 1 Encounter Details Date Type Department Care Team (Latest Contact Info) Description 06/04/2024 11:42 AM CDT - 06/04/2024 11:59 PM CDT Hospital Encounter Department of Cardiovascular Diseases in [place], [place] [address] [place] [address] Devi Stafford APRN, C.N.P., M.S.N. [address] [place] [address] Prosthesis Aortic Valve Discharge Disposition: Home or Self Care Social History Tobacco Use Types Packs/Day Years Used Date Smoking Tobacco: Former Cigarettes 0 01/12/1955 - 02/10/1985 Smokeless Tobacco: Never Alcohol Use Standard Drinks/Week Comments Yes 10 (1 standard drink = 0.6 oz pu re alcohol) occassional [facility] Utilities Answer Date Recorded In the past 12 months has [facility] [employer], gas, oil, or water [employer] threatened to shut off services in your [...] week 08/07/2022 How often do you attend [facility] or temple services? 1 to 4 times per year 08/07/2022 Do you belong to any clubs o r organizations such as sikhism groups, unions, fraternal or athletic groups, or [...] Score 5 01/25/2019 [facility] - Occupational Stress Questionnaire Answer Date [...] living situation today? I have a [facility] place to live 12/01/2023 Education [...] 1 tablet by mouth daily. Centrum (per auto body builder apprentice) 10/09/2017 omeprazole (PriLOSEC) [address] capsuleIndication [...] st Contact Info) Description 06/18/2024 2:30 PM WILDLAND FIRE OPERATIONS SPECIALIST Office Visit Division of Endocrinology in [place], [place] [address] [place] [address] Ciara Hebert M.D. [address] [place] [address] documented as of this encounter Procedures Procedure Name Priority Date/Time Associated Diagnosis Comments (TTE) 2D ECHO DOPPLER COLOR Routine 06/04/2024 2:03 PM CDT Prosthesis Aortic Valve documented in this [...] C.N.P., M.S.N. CV ECHO PROCEDURES Final Result documented in this encounter Visit Diagnoses Diagnosis Prosthesis Aortic Valve documented in this encounter Additional Health Concerns Assessment Noted Time PHQ-9 Depression Total Score: 5 03/06/20 18 6:00 PM CDT documented as of this encounter Care Teams House Calls Nurse Relationship Specialty Start Date End Date Elsewhere, Pcp PCP - General Internal Medicine 09/13/22 documented as of this encounter
--- OUTSIDE RECORDS SUMMARY | 2024-06-06 08:40 | XMS_ITS | Encounter Summary ---
Author Organization [facility] Address [address] [place] [address] Care Team Providers Care Costuming Supervisor Name Role Phone Elsewhere, Pcp Primary Care Provider Unavailabl e Reason for Referral * Outpatient (Routine) - Closed Specialty Diagnoses / Procedures Referred By Jessica patel Referred To Contact Vascular Medicine Diagnoses Aneurysm Abdominal Aortic Personal History Procedures Vascular Medicine - General eConsult Devi Stafford APRN, C.N.P., M.S.N. [address] [place] [phone] Phone: tel: fax: [facility] Referral ID Status Reason Start Date Expiration Date Visits Re quested Visits Authorized [id number] Closed 05/07/2024 05/07/2025 1 1 Encounter Details Date Type Department Care Team (Late st Contact Info) Description 05/07/2024 Orders Only Department of Cardiovascular Medicine in [place], [place] [address] [place] [phone] Devi Stafford APRN, C.N.P., M.S.N. [address] [place] [phone] Aneurysm Abdominal Aortic Personal History (Primary Dx) Social History Tobacco Use Types Packs/Day Years Used Date Smoking Tobacco: Former Cigarettes 0 01/12/1955 - 01/16/1985 Smokeless Tobacco: Never Alcohol Use Standard Drinks/Week Comments Yes 10 (1 standard drink = 0.6 oz pu re alcohol) occassional [facility] Utilities Answer Date Recorded In the past 12 months has e [employer], gas, oil, or water [employer] threatened to shut off services in your [...] week 08/07/2022 How often do you attend [facility] or mormon services? 1 to 4 times per year [...] Score 5 01/25/2019 [facility] - Occupational Stress Questionnaire Answer Date [...] your living situation today? I have a [facility] place to live 12/01/2023 Education [...] st Contact Info) Description 06/18/2024 2:30 PM LEGAL LIBRARIAN Office Visit Division of Endocrinology in [place], [place] [address] [place] [address] Ciara Hebert M.D. [address] [place] [address] documented as of this encounter Visit Diagnoses Diagnosis Aneurysm Abdominal Aortic Personal History- Primary documented in this encounter Additional Health Concerns Assessment Noted Time PHQ-9 Depression Total Score: 5 03/06/20 18 6:00 PM CDT documented as of this encounter Care Teams Costuming Supervisor Relationship Specialty Start Date End Date Elsewhere, Pcp PCP - General Internal Medicine 09/13/22 documented as of this encounter
--- OUTSIDE RECORDS SUMMARY | 2024-06-06 08:40 | XMS_ITS | Encounter Summary ---
Author Organization [facility] Address [address] [place] [address] Care Team Providers Care Field Investigator Name Role Phone Elsewhere, Pcp Primary Care Provider Unavailabl e Encounter Details Date Type Department Care Team (Late st Contact Info) Description 03/22/2024 4:00 AM CDT - 03/22/2024 11:59 PM CDT Hospital Encounter Department of Cardiovascular Diseases in [place], [place] [address] [place] [phone] Julian Garduno M.D., Ph.D. [address] [place] [phone] Encounter For Checking And Testing Of Cardiac Pacemaker Pulse Generator Battery Discharge Disposition: Home or Self Care Social History Tobacco Use Types Packs/Day Years Used Date Smoking Tobacco: Former Cigarettes 0 01/12/1955 - 01/16/1985 Smokeless Tobacco: Never Alcohol Use Standard Drinks/Week Comments Yes 10 (1 standard drink = 0.6 oz pu re alcohol) occassional [facility] Utilities Answer Date Recorded In the past 12 months has e electric, gas, oil, or water [employer] threatened to shut off services in your [...] How often do you attend chur or bahai services? 1 to 4 times per year 08/07/2022 Do you belong to any clubs o r organizations such as sikh groups, unions, fraternal or athletic groups, or [...] Score 5 01/25/2019 [facility] [place] of Occupat ional Health - Occupational Stress [...] your living situation today? I have a [facility] place to live 12/01/2023 Education Answer [...] day with meals. 180 tablet 3 10/10/2022 diphenhydrAMINE-a cetaminophen (TYLENOL PM) 25-500 mg per [...] 1 tablet by mouth daily. Centrum (per switch cleaner) 10/09/2017 omeprazole (PriLOSEC) [address] capsuleIndication [...] st Contact Info) Description 06/18/2024 2:30 PM PASSENGER COACH DRIVER Office Visit Division of Endocrinology in [place], [place] [address] [place] [address] Ciara Hebert M.D. [address] [place] [address] documented as of this encounter Procedures Procedure Name Priority Date/Time Associated Diagnosis Comments PACER REMOTE FOLLOW UP Routine 03/27/2024 12:50 PM CDT Encounter For Checking And Testing Of Cardiac Pacemaker Pulse Generator Battery documented in this encounter Results * PACER REMOTE FOLLOW UP (03/27/2024 12:50 PM CDT) Date Time Interrogation Session [id number] [facility] Implantable Pulse Generator Barge Captain Medtronic [facility] Implantable Pulse Generator Model [id number] [place] XT SR MRI [facility] Implantable Pulse Generator Serial Number [id number] [facility] Type Interrogation Session Remote [facility] Implantable Pulse Generator Type Pacemaker [facility] Implantable Pulse Generator Implant Date [id number] [facility] Implantable Lead Barge Captain Medtronic [facility] Implantable Lead Model [id number] Attain Ability MRI SureScan [facility] Implantable Lead Serial Number [id number] [facility] Implantable Lead Implant Date 20171009 [facility] Implantable Lead Polarity Type Bipolar Lead [facility] Implantable Lead Location Detail 1 UNKNOWN [facility] Implantable Lead Special Function Lead length: 88 cm [facility] Implantable Lead Location Left Ventricle [facility] Cholo Setting Mode (NBG Code) VVIR [facility] Cholo Setting Lower Rate Limit 60 {beats}/ min [facility] Cholo Setting Maximum Sensor Rate 130 {beats}/ min [facility] Lead Channel Setting Sensing Polarity Bipolar [facility] Lead Channel Setting Sensing Anode Location Right Ventricle [facility] Lead Channel Setting Sensing Anode Terminal Ring [facility] Lead Channel Setting Sensing Cathode Location Right Ventricle [facility] Lead Channel Setting Sensing Cathode Terminal Tip [facility] Lead Channel Setting Sensing Sensitivity 0.9 mV [facility] Lead Channel Setting Pacing Polarity Bipolar [facility] Lead Channel Setting Pacing Anode Location Right Ventricle [facility] Lead Channel Setting Pacing Anode [...] Time of Measurements [facility] Battery CHILD DEVELOPMENT ASSOCIATE TEACHER Trigger 2.625 [facility] Battery Remaining [...] SYSTEM Episode Statistic Total Date Time Start [id number] [facility] Episode Statistic Total Date Time End [facility] Episode Statistic Total Date Time Start [id number] [facility] Episode Statistic Total Date Time End [facility] Episode Statistic Total Date Time Start [id number] [facility] Episode Statistic Total Date Time End [facility] Anatomical Region Laterality Modality Other 03/21/2024 11:5 8 PM CDT Narrative 03/28/2024 2:20 PM CDT PURPOSE OF VISIT: ??Routine remote transmission. PRESENTING EGM: ??SAP SD ANALYST at 60 bpm VENTRICULAR ARRHYTHMIAS: ?No new [...] documented as of this encounter Care Teams Field Investigator Relationship Specialty Start Date End Date Elsewhere, Pcp PCP - General Internal Medicine 09/13/22 documented as of this encounter
--- OUTSIDE RECORDS SUMMARY | 2024-06-06 08:40 | XMS_ITS | Encounter Summary ---
Author Organization [facility] Address [address] [place] [address] Care Team Providers Care Clinical Rn Name Role Phone Elsewhere, Pcp Primary Care Provider Unavailabl e Encounter Details Date Type Department Care Team (Late st Contact Info) Description 03/27/2024 8:57 AM CDT - 03/27/2024 11:59 PM CDT Hospital Encounter Department of Laboratory Medicine and Pathology, [facility] in [place], [place] [address] [place] [phone] Zara Garvey, ROSAURA, C.N.P., D.N.P. [address] [place] [phone] Malignant Neoplasm Of Thyroid Papillary (HCC) Discharge Disposition: Home or Self Care Social History Tobacco Use Types Packs/Day Years Used Date Smoking Tobacco: Former Cigarettes 0 01/12/1955 - 01/16/1985 Smokeless Tobacco: Never Alcohol Use Standard Drinks/Week Comments Yes 10 (1 standard drink = 0.6 oz pu re alcohol) occassional [facility] Utilities Answer Date Recorded In [...] How often do you attend chur or religion services? 1 to 4 times [...] Answer Date Recorded PHQ-2 Score 5 01/25/2019 [facility] [place] of Occupat ional Health - Occupational Stress [...] your living situation today? I have a [facility] place to live 12/01/2023 Education Answer [...] 1 tablet by mouth daily. Centrum (per instrument checker) 10/09/2017 omeprazole (PriLOSEC) [address] capsuleIndication [...] had discussedestablishing you with one of my Element Burner colleagues given your complex thyroid cancer history. We had planned for that to be around June 2024. Any luck with scheduling this? I would recommend contacting appointment line [phone] to start scheduling. I look forward to your reply. Shelbi Gardiner documented in this encounter Plan of Treatment Upcoming Encounters Date Type Department Care Team (Late st Contact Info) Description 06/18/2024 2:30 PM WEATHER ANALYST Office Visit Division of Endocrinology in [place], [place] [address] [place] [address] Ciara Hebert M.D. [address] [place] [address] documented as of this encounter Procedures Procedure [...] OD ADD-ON Final Result Performing Organization Address [facility] Co de Phone Number [facility] [place] [address] [place] [address] * (ABNORMAL) S-TSH (Thyroid-Stimulating Hormone - Sensitive) (03/27/2024 9:12 AM CDT) TSH, Sensitive 0.02(L) 0.3 - 4.2 mIU/L 03/27/2024 10:17 AM CDT DTL Blood (Blood, Venous) 03/27/2024 9:12 AM CDT 03/27/2024 9:52 AM CDT Zara Garvey APRN, C.N.P., D.N.P. LAB BLO OD ADD-ON Final Result Performing Organization Address [facility] de Phone Number [facility] [place] 200 [place], [place] [address] [place] [address] documented in this encounter Visit Diagnoses Diagnosis Malignant Neoplasm Of Thyroid Papillary (HCC) documented in this encounter Additional Health Concerns Assessment Noted Time PHQ-9 Depression Total Score: 5 03/06/20 18 6:00 PM CDT documented as of this encounter Care Teams Clinical Rn Relationship Specialty Start Date End Date Elsewhere, Pcp PCP - General Internal Medicine 09/13/22 documented as of this encounter
--- OUTSIDE RECORDS SUMMARY | 2024-06-06 08:40 | XMS_ITS | Encounter Summary ---
Author Organization [facility] Address [address] [place] [address] Care Team Providers Care Electric Motor And Generator Assembler Name Role Phone Elsewhere, Pcp Primary Care Provider Unavailabl e Reason for Referral * Outpatient (Routine) - Closed Specialty Diagnoses / Procedures Referred By Jennac t Referred To Contact Diagnoses Prosthesis Aortic Valve Procedures Aorta Devi Stafford APRN, C.NTato, M.S.N. [address] [place] [address] Phone: tel: fax: [facility] Region Referral ID Status Reason Start Date Expiration Date Visits Re quested Visits Authorized [id number] Closed 05/02/2023 05/01/2024 1 1 Reason for Visit * Outpatient (Routine) - Closed Specialty Diagnoses / Procedures Referred By Contac t Referred To Contact Diagnoses Prosthesis Aortic Valve Procedures Aorta Devi Stafford APRN, C.NTato, M.S.N. [address] [place] [address] Phone: tel: fax: [facility] Region Referral ID Status Reason Start Date Expiration Date Visits Re quested Visits Authorized [id number] Closed 05/02/2023 05/01/2024 1 1 Encounter Details Date Type Department Care Team (Latest Contact Info) Description 05/03/2024 8:42 AM CDT - 05/03/2024 11:59 PM CDT Hospital Encounter Department of Radiology in [place] [address] [place] [address] Devi Stafford APRN CDavisNDavisPDavis, M.S.N. [address] [place] [address] Prosthesis Aortic Valve Discharge Disposition: Home or Self Care Social History Tobacco Use Types Packs/Day Years Used Date Smoking Tobacco: Former Cigarettes 0 01/12/1955 - 01/16/1985 Smokeless Tobacco: Never Alcohol Use Standard Drinks/Week Comments Yes 10 (1 standard drink = 0.6 oz pu re alcohol) occassional [facility] Utilities Answer Date Recorded In the past 12 months has e [employer], gas, oil, or water [employer] threatened to shut off services in your [...] week 08/07/2022 How often do you attend [facility] or catholic services? 1 to 4 times per year 08/07/2022 Do you belong to any clubs o r organizations such as worship groups, unions, fraternal or athletic groups, or [...] Date Recorded PHQ-2 Score 5 01/25/2019 [facility] - Occupational Stress Questionnaire Answer Date Recorded [...] 1 tablet by mouth daily. Centrum (per concrete gun operator) 10/09/2017 omeprazole (PriLOSEC) [address] capsuleIndication [...] st Contact Info) Description 06/18/2024 2:30 PM TOWER EQUIPMENT INSTALLER Office Visit Division of Endocrinology in [place], [place] [address] [place] [address] Ciara Hebert M.D. [address] [place] [address] documented as of this encounter Procedures Procedure [...] Devi Stafford APRN, C.N.P., M.S.N. [facility] Marilee ROCEDURES Edited Result - Final documented in this encounter Visit Diagnoses Diagnosis Prosthesis Aortic Valve documented in this encounter Additional Health Concerns Assessment Noted Time PHQ-9 Depression Total Score: 5 03/06/20 18 6:00 PM CDT documented as of this encounter Care Teams Electric Motor And Generator Assembler Relationship Specialty Start Date End Date Elsewhere, Pcp PCP - General Internal Medicine 09/13/22 documented as of this encounter
--- OUTSIDE RECORDS SUMMARY | 2024-06-06 08:40 | XMS_ITS | Encounter Summary ---
Author Organization [facility] Address [address] [place] [address] Care Team Providers Care Traffic Manager Name Role Phone Elsewhere, Pcp Primary Care Provider Unavailabl e Encounter Details Date Type Department Care Team (Late st Contact Info) Description 04/03/2024 Clinical Communication Division of Endocrinology in [place], [place] [address] [place] [phone] Zara Garvey, ROSAURA, C.N.P., D.N.P. [address] [place] [phone] Social History Tobacco Use Types Packs/Day Years Used Date Smoking Tobacco: Former Cigarettes 0 01/12/1955 - 01/16/1985 Smokeless Tobacco: Never Alcohol Use Standard Drinks/Week Comments Yes 10 (1 standard drink = 0.6 oz pu re alcohol) occassional [facility] Utilities Answer Date Recorded In the past 12 months has [facility] [place], oil, or water [employer] threatened to shut off services in [...] How often do you attend chur or voodoo services? 1 to 4 times [...] Answer Date Recorded PHQ-2 Score 5 01/25/2019 [facility] [place] of Occupat ional Health - Occupational Stress [...] your living situation today? I have a [facility] place to live 12/01/2023 Education Answer [...] st Contact Info) Description 06/18/2024 2:30 PM PEDIATRIC ASSISTANT Office Visit Division of Endocrinology in [place], [place] 200 [place] [address] Ciara Hebert M.D. [address] [place] [address] documented as of this encounter Visit Diagnoses Not on filedocumented in this encounter Additional Health Concerns Assessment Noted Time PHQ-9 Depression Total Score: 5 03/06/20 18 6:00 PM CDT documented as of this encounter Care Teams Traffic Manager Relationship Specialty Start Date End Date Elsewhere, Pcp PCP - General Internal Medicine 09/13/22 documented as of this encounter
--- OUTSIDE RECORDS SUMMARY | 2024-06-06 08:40 | XMS_ITS | Encounter Summary ---
Author Organization [facility] Address [address] [place] [address] Care Team Providers Care Tare Worker Name Role Phone Elsewhere, Pcp Primary Care Provider Unavailabl e Reason for Visit * Reason Comments Med Refill Encounter Details Date Type Department Care Team ([facility] st Contact Info) Description 02/27/2024 Refill Division of Endocrinology in [place], [place] [address] [place] [phone] Raven Holloway M.D. [address] [place] [address] Med Refill Social History Tobacco Use Types Packs/Day Years Used Date Smoking Tobacco: Former Cigarettes 0 01/12/1955 - 01/16/1985 Smokeless Tobacco: Never Alcohol Use Standard Drinks/Week Comments Yes 10 (1 standard drink = 0.6 oz pu re alcohol) occassional [facility] Utilities Answer Date Recorded In the past 12 months has [facility], oil, or water [employer] threatened to shut off services in your [...] How often do you attend chur or moravian services? 1 to 4 times [...] Recorded PHQ-2 Score 5 01/25/2019 [facility] of Occupat ional Health - Occupational Stress [...] your living situation today? I have a [facility] 12/01/2023 Education [...] st Contact Info) Description 06/18/2024 2:30 PM HOUSECLEANER FLOOR Office Visit Division of Endocrinology in [place], [place] [address] [place] [phone] Ciara Hebert M.D. [address] [place] [address] documented as of this encounter Visit Diagnoses Not on filedocumented in this encounter Additional Health Concerns Assessment Noted Time PHQ-9 Depression Total Score: 5 03/06/20 18 6:00 PM CDT documented as of this encounter Care Teams Tare Worker Relationship Specialty Start Date End Date Elsewhere, Pcp PCP - General Internal Medicine 09/13/22 documented as of this encounter
--- OUTSIDE RECORDS SUMMARY | 2024-06-06 08:40 | XMS_ITS | Encounter Summary ---
Author Organization [facility] Address [address] [place] [id number] Care Team Providers Care Relays Draftsperson Name Role Phone Elsewhere, Pcp Primary Care Provider Unavailabl e Reason for Visit * Reason Onset Date Comments Thyroid Message Confirmation 02/08/2024 Encounter Details Date Type Department Care Team (Latest Contact Info) Description 02/08/2024 Clinical Communication Division of Endocrinology in [place], [place] [address] [place] [address] Zara Garvey, ROSAURA, C.N.P., D.N.P. [address] [place] [phone] Thyroid Message Confirmation Social History Tobacco Use Types Packs/Day Years Used Date Smoking Tobacco: Former Cigarettes 0 01/12/1955 - 01/16/1985 Smokeless Tobacco: Never Alcohol Use Standard Drinks/Week Comments Yes 10 (1 standard drink = 0.6 oz pu re alcohol) occassional [facility] Utilities Answer Date Recorded In the past 12 months has [employer], gas, oil, or water [employer] threatened to shut off services in your [...] any clubs o r organizations such as caodaism groups, unions, fraternal or athletic groups, or [...] Answer Date Recorded PHQ-2 Score 5 01/25/2019 [facility] - Occupational Stress Questionnaire Answer [...] your living situation today? I have a [facility] place to live 12/01/2023 Education [...] st Contact Info) Description 06/18/2024 2:30 PM LITIGATION MANAGER Office Visit Division of Endocrinology in [place], [place] [address] [place] [phone] Ciara Hebert M.D. [address] [place] [phone] documented as of this encounter Visit Diagnoses Not on filedocumented in this encounter Additional Health Concerns Assessment Noted Time PHQ-9 Depression Total Score: 5 03/06/20 18 6:00 PM CDT documented as of this encounter Care Teams Relays Draftsperson Relationship Specialty Start Date End Date Elsewhere, Pcp PCP - General Internal Medicine 09/13/22 documented as of this encounter
--- OUTSIDE RECORDS SUMMARY | 2024-06-06 08:40 | XMS_ITS | Encounter Summary ---
Author Organization [facility] Address [address] [place] [address] Care Team Providers Care Inspector Motor Vehicles Name Role Phone Elsewhere, Pcp Primary Care Provider Unavailabl e Reason for Visit * Outpatient (Routine) - Closed Specialty Diagnoses / Procedures Referred By Jessica patel Referred To Contact Vascular Medicine Diagnoses Aneurysm Abdominal Aortic Personal History Procedures Vascular Medicine - General eConsult Devi Stafford, ROSAURA, C.N.P., M.S.N. [address] [place] [phone] Phone: tel: fax: [facility] Referral ID Status Reason Start Date Expiration Date Visits Re quested Visits Authorized [id number] Closed 05/07/2024 05/07/2025 1 1 Encounter Details Date Type Department Care Team (Latest Contact Info) Description 05/09/2024 8:00 AM CDT Internal E-Consult Department of Vascular Medicine in [place], [place] [address] [place] [phone] Fran Gracia M.D. 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); Aneurysm Abdominal Aortic Personal History Social History Tobacco Use Types Packs/Day Years Used Date Smoking Tobacco: Former Cigarettes 0 01/12/1955 - 01/16/1985 Smokeless Tobacco: Never Alcohol Use Standard Drinks/Week Comments Yes 10 (1 standard drink = 0.6 oz pu re alcohol) occassional [facility] Utilities Answer Date Recorded In the past 12 months has th e [employer], [employer], oil, or water [employer] threatened to shut off services in your [...] Answer Date Recorded PHQ-2 Score 5 01/25/2019 [facility] - Occupational Stress Questionnaire Answer [...] based entirely upon information available in the [facility] electronic medical record. CHIEF COMPLAINT / [...] fact, in view of the minimal size change management coordinator the last 2 years, it is probably [...] st Contact Info) Description 06/18/2024 2:30 PM DISTRIBUTION OPERATION SUPERVISOR Office Visit Division of Endocrinology in [place], [place] [address] [place] [address] Ciara Hebert M.D. [address] [place] [address] documented as of this encounter Visit Diagnoses Diagnosis Abdominal Aortic Aneurysm Without Rupture Unspecified (HCC)- Primary Aneurysm Abdominal Aortic Personal History documented in this encounter Additional Health Concerns Assessment Noted Time PHQ-9 Depression Total Score: 5 03/06/20 18 6:00 PM CDT documented as of this encounter Care Teams Inspector Motor Vehicles Relationship Specialty Start Date End Date Elsewhere, Pcp PCP - General Internal Medicine 09/13/22 documented as of this encounter
--- OUTSIDE RECORDS SUMMARY | 2024-06-06 08:40 | XMS_ITS | Encounter Summary ---
Author Organization [facility] Address [address] [place] [address] Care Team Providers Care Director Style Name Role Phone Elsewhere, Pcp Primary Care Provider Unavailabl e Reason for Visit * Reason Onset Date Comments Pre-visit Testing Orders 03/12/2024 Encounter Details Date Type Department Care Team (Latest Contact Info) Description 03/12/2024 Clinical Communication Department of Cardiovascular Medicine in [place], [place] [address] [place] [phone] Devi Stafford APRN, C.N.P., M.S.N. [address] [place] [phone] Pre-visit Testing Orders Social History Tobacco Use Types Packs/Day Years Used Date Smoking Tobacco: Former Cigarettes 0 01/12/1955 - 01/16/1985 Smokeless Tobacco: Never Alcohol Use Standard Drinks/Week Comments Yes 10 (1 standard drink = 0.6 oz pu re alcohol) occassional [facility] Utilities Answer Date Recorded In the past 12 months has [facility] [employer], gas, oil, or water [employer] threatened to shut off services in your [...] any clubs o r organizations such as voodoo groups, unions, fraternal or athletic groups, or [...] Answer Date Recorded PHQ-2 Score 5 01/25/2019 [facility] Occupat [facility] - Occupational Stress Questionnaire Answer Date [...] your living situation today? I have a [facility] place to live 12/01/2023 Education Answer [...] st Contact Info) Description 06/18/2024 2:30 PM BUYER AGENT Office Visit Division of Endocrinology in [place], [place] 200 [place] [phone] Ciara Hebert M.D. [address] [place] [phone] documented as of this encounter Visit Diagnoses Not on filedocumented in this encounter Additional Health Concerns Assessment Noted Time PHQ-9 Depression Total Score: 5 03/06/20 18 6:00 PM CDT documented as of this encounter Care Teams Director Style Relationship Specialty Start Date End Date Elsewhere, Pcp PCP - General Internal Medicine 09/13/22 documented as of this encounter
== END 2024-06-05 11:40 | disposition home or self-care (01) ==
LOC: NFLDREF 06-06 08:33
PROVIDERS: PCP Family Medicine; Referring Provider Family Medicine; Visit Provider Family Medicine
DX: Z51.81 Encounter for therapeutic drug level monitoring (principal); I48.91 Unspecified atrial fibrillation; Z79.01 Long term (current) use of anticoagulants
CPT/HCPCS: 85610

== ENCOUNTER 2024-06-28 11:21 | Outpatient (CLI) | payer MEDICARE, SELFPAY ==
--- OUTSIDE RECORDS SUMMARY | 2024-07-03 00:01 | XMS_ITS ---
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 Past Plans Radiation Treatments * No radiation treatments are documented for this patient in [facility]. Treatments may have been administered [...]
--- OUTSIDE RECORDS SUMMARY | 2024-07-03 00:01 | XMS_ITS ---
Author Organization [facility] Address [address] [place] [address] Care Team Providers Care Tire Installer Name Role Phone Unavailable Unavailable Unavailable Surgery Details Not on file Complications Check Surgery Details section. Procedure Estimated Blood Loss Check Surgery Details section. Procedure Findings Check Surgery Details section. Procedure Specimens Taken Check Surgery Details section.
--- OUTSIDE RECORDS SUMMARY | 2024-07-03 00:01 | XMS_ITS | Clinical Summary ---
Author Organization [facility] Address [address] [place] [address] Care Team Providers Care Skein Bander Name Role Phone Elsewhere, Pcp Primary Care Provider Unavailabl e Source Comments Patient records contain information from all sites at [facility]. For routine questions regarding patient records, call [phone] during business hours, M-F 8:00 AM - 5:00 PM Central Time. Record requests for emergency care only can be directed to [phone] at any time.[facility] Allergies Active Allergy Reactions Criticality Noted [...] tablet by mouth daily. Centrum (per senior care specialist) 8 Active acetaminophen (TYLENOL) 500 mg tablet Take 500-1,000 mg by mouth every 6 (six) hours as needed for pain. Active omeprazole (PriLOSEC) [address] Ameya ons:Gastroesoph ageal Reflux Disease TAKE ONE CAPSULE BY MOUTH [...] 1 tablet by mouth daily. 7 Active diphenhydrAMINE -acetaminophen (TYLENOL PM) 25-500 mg per tablet Take 1 tablet by mouth at bedtime as needed. 7 Active levothyroxine 175 mcg tablet Take 1 tablet (175 mcg total) by mouth daily before morning meal. 90 tablet 3 4 Active levothyroxine (SYNTHROID, LEVOTHROID) 200 mcg tablet Take 1 tablet (200 mcg total) by mouth every morning before breakfast. 90 tablet 3 4 024 Discontin ued(Reord er) Active Problems Problem Noted Date Diagnosed Date [...] cM0) - Unsigned Anemia Of Renal Failure Engineering Group Leader nirmala Kidney Disease On Erythropoietin 01/30/2017 Flutter [...] Encounters Date Type Department Care Team Description 07/02/2024 Clinical Communication Division of Endocrinology in [place], [place] [address] [place] [phone] Ciara Hebert M.D. INR Result 07/01/2024 8:41 AM ANALOG CIRCUIT DESIGNER - 07/01/2024 11:59 PM ANALOG CIRCUIT DESIGNER Hospital Encounter Department of Cardiovascular Diseases in [place], [place] [address] [place] [phone] Mike Brewer M.D., Ph.D. Arrived Discharge Disposition: Home or Self Care 06/18/2024 2:30 PM ANALOG CIRCUIT DESIGNER Office Visit Division of Endocrinology in [place], [place] [address] [place] [phone] Ciara Hebert M.D. Hypothyroidism Postsurgical (Primary Dx); Malignant Neoplasm Of Thyroid Papillary (HCC); Nodules Pulmonary Multiple 06/17/2024 10:43 AM ANALOG CIRCUIT DESIGNER - 06/17/2024 11:59 PM ANALOG CIRCUIT DESIGNER Hospital Encounter Department of Radiology in [address] [phone] Zara Garvey APRN, C.N.P., D.N.P. Malignant Neoplasm Of Thyroid Papillary (HCC) Discharge Disposition: Home or Self Care 06/17/2024 10:42 AM ANALOG CIRCUIT DESIGNER Hospital Encounter Department of Radiology in [place] [address] [place] [address] Zara Garvey APRN, C.N.P., D.N.P. Malignant Neoplasm Of Thyroid Papillary (HCC) Discharge Disposition: Home or Self Care 06/17/2024 8:41 AM ANALOG CIRCUIT DESIGNER - 06/17/2024 10:41 AM ANALOG CIRCUIT DESIGNER Hospital Encounter Department of Laboratory Medicine in [place] [address] [place] [phone] Zara Garvey APRN, C.N.P., D.N.P. Malignant Neoplasm Of Thyroid Papillary (HCC) Discharge Disposition: Home or Self Care 06/04/2024 2:15 PM CDT Office Visit Department of Cardiovascular Medicine in [place], [place] [address] [place] [phone] Devi Stafford APRN C.N.P., M.S.N. Prosthesis Aortic Valve (Primary Dx); Aneurysm Abdominal Aortic Personal History 06/04/2024 11:42 AM CDT - 06/04/2024 11:59 PM CDT Hospital Encounter Department of Cardiovascular Diseases in [place], [place] [address] [place] [phone] Devi Stafford APRN, C.N.P., M.S.N. Prosthesis Aortic Valve Discharge Disposition: Home or Self Care 06/04/2024 8:56 AM CDT - 06/04/2024 11:41 AM CDT Hospital Encounter Department of Radiology, [facility], in [place], [place] [address] [place] [phone] Devi Stafford APRN, C.N.P., M.S.N. Prosthesis Aortic Valve Discharge Disposition: Home or Self Care 06/04/2024 8:20 AM CDT - 06/04/2024 8:55 AM CDT Hospital Encounter Department of Laboratory Medicine and Pathology, [facility] in [place], [place] [address] [place] [phone] Devi Stafford APRN, C.N.P., M.S.N. Prosthesis Aortic Valve Discharge Disposition: Home or Self Care 05/28/2024 10:00 AM CDT Clinical Communication Virtual Review in [place], [place] 200 [place] [phone] Pre-visit Intake 05/09/2024 8:00 AM CDT Internal E-Consult Department of Vascular Medicine in [place], [place] [address] [place] [phone] Fran Gracia M.D. 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 Aneurysm Abdominal Aortic Personal History (Primary Dx) 05/03/2024 8:42 AM CDT - 05/03/2024 11:59 PM CDT Hospital Encounter Department of Radiology in [address] [phone] Devi Stafford APRN, C.N.Yvrose, M.S.N. Prosthesis Aortic Valve Discharge Disposition: Home or Self Care 04/03/2024 Clinical Communication Division of Endocrinology in [place], [place] [address] [place] [phone] Zara Garvey APRN, C.N.P., D.N.P. from Last 3 Months Immunizations Name Administration [...] 0.6 oz pu re alcohol) occassional [facility] Utilities Answer Date Recorded In the past 12 months has e [employer], gas, oil, or water [employer] threatened to shut off services in your [...] week 08/07/2022 How often do you attend [facility] or zoroastrian services? 1 to 4 times per year 08/07/2022 Do you belong to any clubs o r organizations such as taoism groups, unions, fraternal or athletic groups, or [...] Answer Date Recorded PHQ-2 Score 5 [facility] Occupational Stress Questionnaire Answer [...] your living situation today? I have a [facility] place to live 12/01/2023 Education Answer [...] Sign Reading Time Taken Comments Blood Pressure 134/88 06/18/2024 2:25 PM ANALOG CIRCUIT DESIGNER Pulse 79 06/18/2024 2:25 PM ANALOG CIRCUIT DESIGNER Temperature 36.6 C (97.9 F) 04/10/2023 10:00 AM CDT Respiratory Rate 16 04/10/2023 6:41 AM CDT Oxygen Saturation 94% 04/10/2023 10:10 AM CDT Inhaled Oxygen Concentration - - Weight 69.9 kg (154 lb 1.6 oz) 06/18/2024 2:25 P M ANALOG CIRCUIT DESIGNER Height 167.7 cm (5' 6.02) 06/18/2024 2:25 PM CS T Body Mass Index 24.85 06/18/2024 2:25 PM ANALOG CIRCUIT DESIGNER Plan of Treatment Upcoming Encounters Date Type Department Care Team (Late st Contact Info) Description 09/18/2024 11:00 AM ANALOG CIRCUIT DESIGNER Appointment Department of Laboratory Medicine in [address] [phone] Ciara Hebert M.D. [address] [place] [address] Health Maintenance Due Date Last Done Comments RSV vaccine - (32-36 weeks) or 60+ years (1 - 1-dose 75+ series) 2016 Depression Screening (Annual PHQ-2) 08/14/2023 COVID-19 Vaccine ( season) 2024 12/27/2021, 06/09/2021, 10/22/2020, Additional history exists Creatinine Level (Kidney Function Test) 06/04/2025 06/04/2024, 05/02/2023, 05/03/2022, Additional history exists Potassium Level 06/04/2025 06/04/2024, 04/14, 05/03/2022, Additional history exists Sodium Level 06/04/2025 06/04/2024, 04/14, 05/03/2022, Additional history exists Thyroid Stimulating Hormone (TSH) test for thyroid function 06/17/2025 06/17/2024, 03/27/2024, 02/07/2024, Additional history exists Office Visit for Blood Pressure Check / Re-check 06/18/2025 06/18/2024 DTaP,Tdap,and Td Vaccines (3 - Td or Tdap) 02/08/2032 02/07/2022, 06/20/2012 Pneumococcal vaccine (65+ years) Completed 09/16/2014, 06/27/2008 Zoster Vaccines Completed 05/13/2019, 01/21/2019 Influenza Vaccine Completed 05/21/2024, , 07/04/2022, Additional history exists Fall Risk Screen (Annual) Completed 06/04/2024 IPV Vaccines Aged Out No longer eligi ble based on patient's age to complete this topic Medical Devices Implanted Type Area Cardiology Nurse Device Identifier Shelf Expiration Date Model / Serial / Lot Lead [id number] Superintendent Refuse Disposal Attain Ability - Darling [id number] Implanted:Qty: 1 on 10/09/2017 Cardiac Lead Coronary Medtronic / [id number] / Description:Device Manufactu rer - [employer] Body Location - Other. Coronary Sinus. Device Status Text - CARD [id number]-[id number]. Conversions - Default Historical Implant Device Implanted:03/07 (Quantity not on file) Cardiac Valve Prosthesis Aorta Description:Device Status Te xt - CardValve. pig valve placed on 11-16-2016. Mesh Or Patch-08/14/2022 Implanted:08/14 (Quantity not on file) Mesh or Patch Stomach Description:Hernia Mesh 2 Dental Bridges Misc Other Mouth Description:Upper and Lower Dental Bridge. Pacer [place] Xt Sr Mri - Darling [id number] Implanted:Qty: 1 on 10/09/2017 Pacemaker Other/Legacy - See Implant Description Medtronic / [id number] / Description:Device Manufactu rer - Medtronic Handshake. Body Location - Other. Left. Device Status Text - PACEMAKER-[id number]. Vascular Other-08/14/2016 Implanted:08/14 (Quantity not on file) Vascular Other Right: Arm Description:A/V fistula Procedures Procedure Name Priority Date/Time Associated Diagnosis Comments INTERFACED REMOTE DEVICE CHECK Routine 07/01/2024 8:41 AM ANALOG CIRCUIT DESIGNER US HEAD NECK SOFT TISSUE RAD - Routine (most inpatients and all outpatients) 06/17/2024 11:29 AM ANALOG CIRCUIT DESIGNER Malignant Neoplasm Of Thyroid Papillary (HCC) CT CHEST WITHOUT IV CONTRAST RAD - Routine (most inpatients and all outpatients) 06/17/2024 10:52 AM ANALOG CIRCUIT DESIGNER Malignant Neoplasm Of Thyroid Papillary (HCC) HC THYROGLOBULIN SERUM Routine 06/17/2024 8:47 AM ANALOG CIRCUIT DESIGNER T4 (THYROXINE), FREE, S Routine 06/17/2024 8:47 AM ANALOG CIRCUIT DESIGNER Malignant Neoplasm Of Thyroid Papillary (HCC) THYROID-STIMULATING HORMONE-SENSITIVE (S-TSH) Routine 06/17/2024 8:47 AM ANALOG CIRCUIT DESIGNER Malignant Neoplasm Of Thyroid Papillary (HCC) THYROGLOBULIN, TM, REFLEX TO LC-MS/MS OR IMMUNOASSAY, S Routine 06/17/2024 8:47 AM ANALOG CIRCUIT DESIGNER Malignant Neoplasm Of Thyroid Papillary (HCC) (TTE) 2D ECHO DOPPLER COLOR Routine 06/04/2024 [...] 05/03/2024 9:28 AM CDT Prosthesis Aortic Valve from Last 3 Months Results * CAR CARDIAC DEVICE INTERROGATION (07/01/2024 8:41 AM ANALOG CIRCUIT DESIGNER) Pathologist [facility] Date Time Interrogation Session [facility] Type Interrogation Session Remote [facility] Implantable Pulse Generator Cardiology Nurse Medtronic [facility] Implantable Pulse Generator Type Pacemaker [facility] Implantable Pulse Generator Model [place] XT SR MRI [id number] [facility] Implantable Pulse Generator Serial Number [id number] [facility] Implantable Pulse Generator Implant Date 20171009 [facility] Battery Remaining Longevity 88.0 mo [facility] Battery Voltage 2.990 [facility] Battery FLYING SHEAR OPERATOR Trigger 2.625 [facility] Battery Status OK [facility] Cholo Statistic RV Percent Paced 99.47 [facility] Lead Channel Sensing Intrinsic Amplitude 21.125 [facility] Lead Channel Setting Sensing Sensitivity 0.90 [facility] Lead Channel Impedance Value 893 [facility] Lead Channel Pacing Threshold Amplitude 1.500 [facility] Lead Channel Pacing Threshold Pulse Width 0.4 [facility] Lead Channel Measurements Date and Time 2024-06-25 [facility] Lead Channel Setting Pacing Amplitude 3.000 [facility] Lead Channel Setting Pacing Pulse Width 0.4 [facility] Cholo Setting Mode (NBG Code) VVIR [facility] Cholo Setting Lower Rate Limit 60 [facility] Cholo Setting Maximum Sensor Rate 130 [facility] Lead Channel Setting Sensing Polarity Bipolar [facility] Lead Channel Setting Pacing Polarity Bipolar [facility] Lead Channel Pacing Threshold Polarity Bipolar [facility] Zone Setting Type Category VT [facility] Murj Rate 1 167 [facility] Zone Setting Status ENABLED [facility] Murj Zone ID 6 [facility] Implantable Lead Cardiology Nurse Medtronic [facility] Implantable Lead Model 4196 Attain Ability MRI SureScan [facility] Implantable Lead Location Left Ventricle [facility] Implantable Lead Connection Status Connected [facility] Implantable Lead Serial Number [id number] [facility] Implantable Lead Implant Date 20171009 [facility] Implantable Lead Special Function Lead length: 88.00 cm [facility] Anatomical Region Laterality Modality Other 07/01/2024 9:25 AM ANALOG CIRCUIT DESIGNER Impressions 07/01/2024 9:25 AM ANALOG CIRCUIT DESIGNER Encounter Impression: Title: Normal Remote: No Events * Normal Device Function * Alerts or events: None * Battery: OK, 7.33 yrs * Sensing, impedance and thresholds reviewed * Programmed parameters reviewed * Presenting EGM V paced 63 bpm. * Heart Rate Histograms reviewed * No significant changes noted Plan: Routine remote follow up and as needed. This patient underwent device interrogation. I agree that the device interrogation was medically indicated to provide appropriate care and continue routine device interrogations as indicated. Encounter Summary: This report includes 1 transmission that was received on 2024-06-26. Battery, lead impedance, sensing amplitude and pacing threshold data was reviewed. Narrative Procedure Note Mike Brewer M.D., Ph.D. - 07/01/2024 IMPRESSION: Encounter Impression: Title: Normal Remote: No Events * Normal Device Function * Alerts or events: None * Battery: OK, 7.33 yrs * Sensing, impedance and thresholds reviewed * Programmed parameters reviewed * Presenting EGM V paced 63 bpm. * Heart Rate Histograms reviewed * No significant changes noted Plan: Routine remote follow up and as needed. This patient underwent device interrogation. I agree that the deviceinterrogation was medically indicated to provide appropriate care andcontinue routine device interrogations as indicated. Encounter Summary: This report includes 1 transmission that was receivedon 2024-06-26. Battery, lead impedance, sensing amplitude and pacingthreshold data was reviewed. Mike Brewer M.D., Ph.D. CV IMPLANTABLE CARDI AC DEVICE Edited Result - Final * US Head Neck Soft Tissue (06/17/2024 11:29 AM ANALOG CIRCUIT DESIGNER) Anatomical Region Laterality Modality Head and Neck, Ultrasound RS T LOS, Ultrasound ARZ LOS, Ultrasound FLA LOS N/A Ultrasound Impressions 06/17/2024 6:09 PM ANALOG CIRCUIT DESIGNER No evidence for local recurrence or metastatic disease. Narrative 06/17/2024 6:09 PM ANALOG CIRCUIT DESIGNER EXAM: US HEAD NECK SOFT TISSUE COMPARISON: 12/06/2023 FINDINGS: Status post bilateral thyroidectomies. No evidence for recurrent neoplasm or residual thyroid parenchyma. No pathologic lymphadenopathy. Procedure Note Ethan Cr M.D. - 06/17/2024 EXAM: US HEAD NECK SOFT TISSUE COMPARISON: 12/06/2023 FINDINGS: Status post bilateral thyroidectomies. No evidence for recurrentneoplasm or residual thyroid parenchyma. No pathologic lymphadenopathy. IMPRESSION: No evidence for local recurrence or metastatic disease. us Zara Garvey APRN, C.N.P., D.N.P. IMG US PROCEDURES Final Result * CT Chest without IV Contrast (06/17/2024 10:52 AM ANALOG CIRCUIT DESIGNER) Anatomical Region Laterality Modality Chest, Thoracic RST LOS, Tho racic ARZ LOS, Thoracic FLA LOS N/A Computed Tomography Impressions 06/17/2024 5:53 PM ANALOG CIRCUIT DESIGNER 1. No acute abnormality and no significant change compared to CTs dating back to 02/01/2023. 2. Bilateral pulmonary nodules ranging up to 6 mm in size are again seen. Consider a follow-up CT in 12 months for further evaluation. Narrative 06/17/2024 5:53 PM ANALOG CIRCUIT DESIGNER EXAM: CT CHEST WITHOUT IV CONTRAST COMPARISON: CT chest 12/06/2023, 02/01/2023 and 03/05/2018. FINDINGS: Lungs and pleura: Bilateral pulmonary nodules are identified ranging up to 6 mm in size, not significant changed compared to CTs dating back to 02/01/2023 but new compared to the CT performed 03/05/2018. A few calcified granulomas. Mild dependent atelectasis within the bilateral lower lobes. Mild emphysema. Mediastinum: No suspicious masses or pathologically enlarged nodes. Heart is moderately enlarged but unchanged. Stable postoperative changes of aortic valve replacement and a ascending thoracic aortic graft repair. 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 Unipolar pacemaker lead. Upper abdomen and chest wall: Status post cholecystectomy. 1 cm low-attenuation lesion within the right lobe of the liver just beneath the dome of the diaphragm, not significantly changed. Adjacent calcified granuloma. Renal cortical thinning and parenchymal scarring involving the left kidney. No acute osseous abnormality. Degenerative changes of the spine. Status post sternotomy. Pacemaker overlying the left pectoralis muscle. 3D maximum intensity projection (MIP) images were created on a dependent workstation as ordered by the treating provider and reviewed by the radiologist to increase sensitivity for detection of pulmonary nodules. Procedure Note Ethan Cr M.D. - 06/17/2024 EXAM: CT CHEST WITHOUT IV CONTRAST COMPARISON: CT chest 12/06/2023, 02/01/2023 and 03/05/2018. FINDINGS: Lungs and pleura: Bilateral pulmonary nodules are identified ranging up to 6 mm in size,not significant changed compared to CTs dating back to 02/01/2023 but newcompared to the CT performed 03/05/2018. A few calcified granulomas. Milddependent atelectasis within the bilateral lower lobes. Mild emphysema. Mediastinum: No suspicious masses or pathologically enlarged nodes. Heart is moderately enlarged but unchanged. 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 Unipolarpacemaker lead. Upper abdomen and chest wall: Status post cholecystectomy. 1 cm low-attenuation lesion within the rightlobe of the liver just beneath the dome of the diaphragm, notsignificantly changed. Adjacent calcified granuloma. Renal corticalthinning and parenchymal scarring involving the left kidney. No acute osseous abnormality. Degenerative changes of the spine. Statuspost sternotomy. Pacemaker overlying the left pectoralis muscle. 3D maximum intensity projection (MIP) images were created on a dependentworkstation as ordered by the treating provider and reviewed by theradiologist to increase sensitivity for detection of pulmonary nodules. IMPRESSION: 1. No acute abnormality and no significant change compared to CTs datingback to 02/01/2023. 2. Bilateral pulmonary nodules ranging up to 6 mm in size are again seen.Consider a follow-up CT in 12 months for further evaluation. Zara Garvey APRN, C.N.P., D.N.P. IMG CT PROCEDURES Final Result * (ABNORMAL) Thyroglobulin, Tumor Marker by Immunoassay (06/17/2024 8:47 AM ANALOG CIRCUIT DESIGNER) Thyroglobulin, Tumor Marker, IA 3.0(H) ng/mL 06/18/2024 11:[address] [facility] Comment: ----REFERENCE VALUE---- Athyrotic <0.1 Intact Thyroid <=33 Thyroglobulin Interpretation SEE COMMENT 06/18/2024 11:[address] [facility] Comment: Thyroglobulin (Tg) levels must be interpreted in the context of TSH levels, serial Tg measurements and radioiodine ablation status. Tg levels of 2.1-9.9 ng/mL in athyrotic individuals [...] testing methods are immunoenzymatic assays manufactured by [employer] and performed on the [employer] DXI 800. Values obtained from different assay methods or kits may be different and cannot be used interchangeably. The results cannot be interpreted as absolute evidence for the presence or absence of malignant disease. Blood 06/17/2024 8:47 AM ANALOG CIRCUIT DESIGNER 06/18/2024 8:58 AM ANALOG CIRCUIT DESIGNER Zara Garvey APRN, C.N.P., D.N.P. LAB BLO OD NON ADD-ON Final Result Performing Organization Address [facility] Co de Phone Number [facility] [address] [place] [address] [facility] [address] [place] [address] * Thyroglobulin, Tumor Marker Reflex to LC-MS/MS or Immunoassay (06/17/2024 8:47 AM ANALOG CIRCUIT DESIGNER) Thyroglobulin Antibody, S <1.8 <1.8 IU/mL 06/18/2024 10:06 AM ANALOG CIRCUIT DESIGNER [facility] Comment: Thyroglobulin Antibody < 1.8 IU/mL. Thyroglobulin performed by Immunoassay to follow. Blood (Blood, Venous) 06/17/2024 8:47 AM ANALOG CIRCUIT DESIGNER 06/18/2024 8:58 AM ANALOG CIRCUIT DESIGNER Zara Garvey APRN, C.N.P., D.N.P. LAB BLO OD NON ADD-ON Final Result Performing Organization Address City/[facility]/ZIP Co de Phone Number [facility] [address] [place] [address] [facility] [address] [place] [address] * (ABNORMAL) S-TSH (Thyroid-Stimulating Hormone - Sensitive) (06/17/2024 8:47 AM ANALOG CIRCUIT DESIGNER) TSH, Sensitive 0.01(L) 0.3 - 4.2 mIU/L 06/17/2024 9:19 AM ANALOG CIRCUIT DESIGNER [facility] Blood (Blood, Venous) 06/17/2024 8:47 AM ANALOG CIRCUIT DESIGNER 06/17/2024 8:47 AM ANALOG CIRCUIT DESIGNER Zara Garvey APRN, C.N.P., D.N.P. LAB BLO OD ADD-ON Final Result Performing Organization Address [facility] de Phone Number [address] [address], [facility] in [address] [address] * (ABNORMAL) T4 (Thyroxine), Free (06/17/2024 8:47 AM ANALOG CIRCUIT DESIGNER) Pathologist [facility] T4 (Thyroxine), Free, P 2.5(H) 0.9 - 1.7 ng/dL 06/17/2024 9:19 AM ANALOG CIRCUIT DESIGNER [facility] Blood (Blood, Venous) 06/17/2024 8:47 AM ANALOG CIRCUIT DESIGNER 06/17/2024 8:47 AM ANALOG CIRCUIT DESIGNER Zara Garvey APRN, C.N.P., D.N.P. LAB BLO OD ADD-ON Final Result Performing Organization Address [facility] Co de Phone Number [address] [address], [facility] in [address] [address] * (TTE) 2D ECHO DOPPLER COLOR (06/04/2024 [...] TAPSE 9 MC CV EIMS Tricuspid Annular S 0.07 MC CV EIMS RV Free Wall [...] chamber size. Abnormal left ventricular geometry with concentric remodeling (increased wall thickness to cavity ratio). Left ventricular mass index by 2D 74 g/m2. Calculated 2-D biplane volumetric left ventricular ejection fraction of 55% without the use of ultrasound enhancing agent. Abnormal ventricular septal motion - post-operative without other regional wall motion abnormalities. Indeterminate left [...] location. Prominent anterior epicardial fat layer. No pericardial effusion. For the complete report, see the [...] complete report, see the Order-Level Documents. Devi Tfifani Stafford APRN C.N.P., M.S.N. CV ECHO PROCEDURES Final Result * ECG 12 Lead (06/04/2024 9:21 AM CDT) Ventricular Rate ECG/Min 68 BPM MUSE QRSD Interval 198 ms MUSE QT Interval 504 ms MUSE QTC Interval 537 ms MUSE R [place] 113 degrees MUSE T Wave [place] -47 degrees MUSE 06/04/2024 9:21 AM CDT 06/04/2024 9:36 AM CDT Impressions MUSE - 06/04/2024 9:36 AM CDT Ventricular-paced rhythm Atrial fibrillation Prolonged QT When compared with ECG of 02-May-2023 09:35, Vent. rate has decreased by 11 bpm Reviewed by ART Lopez Narrative Procedure Note Tito Elliott Jr., M.D. - 06/04/2024 IMPRESSION: Ventricular-paced rhythm Atrial fibrillation Prolonged QT When compared with ECG of 02-May-2023 09:35, Vent. rate has decreased by 11 bpm Reviewed by Fredi Wilfredo, CRAT Devi Nixon Rivera KAPLAN C.N.P., M.S.N. ECG ORDE RABLES Final Result [...] unremarkable. Narrative 06/04/2024 9:44 AM CDT EXAM: DX CHEST AP OR [...] The chest is otherwise unremarkable. Devi Nixon Jass Stafford APRN.N Tripp., M.S.N. IMG DIAGNOSTIC IMAGING PROCEDURES Final Result [...] M.S.N. LAB BLOO D ADD-ON Final Result [facility] [address] [place] [address], [facility] [address] [place] [address] * (ABNORMAL) NT-Pro B-Type Natriuretic Peptide (BNP) [...] ADD-ON Final Result Performing Organization Address [facility] Co de Phone Number [address] [place] [address] * (ABNORMAL) Prothrombin Time (PT) (06/04/2024 8:54 AM CDT) Pathologist [facility] Prothrombin Time, P 41.3(H) 9.4 - 12.5 sec 06/04/2024 9:58 AM CDT DTL INR 3.7 0.9 - 1.1 06/04/2024 9:58 AM CDT DTL Comment: ----ADDITIONAL INFORMATION---- Standard intensity warfarin therapeutic range: 2.0 to 3.0 High intensity warfarin therapeutic range: 2.5 to 3.5 Blood (Blood, Venous) 06/04/2024 8:54 AM CDT 06/04/2024 9:17 AM CDT Jass Barnard APRN.N.P., M.S.N. LAB BLOO D ADD-ON Final Result Performing Organization Address [facility] Co de Phone Number [address] [place] [address] * (ABNORMAL) CBC with Differential, Blood (06/04/2024 [...] Final Result [facility] [address] [place] [address], [facility] [address] [place] [address] [facility] [address] [place] [address] * Sodium (06/04/2024 8:54 AM CDT) Sodium, S 141 135 - 145 mmol/L 06/04/2024 10:12 AM CDT DTL Blood (Blood, Venous) 06/04/2024 8:54 AM CDT 06/04/2024 9:43 AM CDT Jass Barnard APRN.N.P., M.S.N. LAB BLOO D ADD-ON Final Result [facility] [address] [place], [place] [address] [address] [place] [address] * Potassium (06/04/2024 8:54 AM CDT) Potassium, S 4.5 3.6 - 5.2 mmol/L 06/04/2024 10:12 AM CDT DTL Blood (Blood, Venous) 06/04/2024 8:54 AM CDT 06/04/2024 9:43 AM CDT Jass Barnard APRN.N.P., M.S.N. LAB BLOO D ADD-ON Final Result [facility] [address] [place] [address], [facility] [address] [place] [address] * (ABNORMAL) Glucose, Fasting (06/04/2024 8:54 AM CDT) Glucose, P 107(H) 70 - 100 mg/dL 06/04/2024 9:37 AM CDT DTL Last Intake 15 hr 06/04/2024 9:21 AM CDT DTL Blood (Blood, Venous) 06/04/2024 8:54 AM CDT 06/04/2024 9:21 AM CDT Jass Barnard APRN.NTripp., M.S.N. LAB BLOO D NON ADD-ON Final Result Performing Organization Address City/[facility]/ZIP Co de Phone Number [facility] [address] [place] [address], [facility] DTL [facility] [address] [place] [address] * (ABNORMAL) Creatinine with Estimated GFR (06/04/2024 [...] D ADD-ON Final Result Performing Organization Address City/[facility]/ZIP Co de Phone Number [facility] [address] [place] [address], [facility] DTL [facility] [address] [place] [address] * Albumin (06/04/2024 8:54 AM CDT) Albumin, S 4.2 3.5 - 5.0 g/dL 06/04/2024 10:12 AM CDT DTL Blood (Blood, Venous) 06/04/2024 8:54 AM CDT 06/04/2024 9:43 AM CDT Devi Nixon Rivera KAPLAN C.N.P., M.S.N. LAB BLOO D ADD-ON Final Result [facility] [address] [place] [address], [place] DTL [facility] [address] [place] [address] * [place] Aorta (05/03/2024 9:28 AM CDT) [...] previously 1.6cm. Devi Stafford APRN, C.N.P., M.S.N. [facility] Marilee BARRERA Edited Result - Final from Last [address] Persaud [address] [place] [phone] [facility] Advance Directives For more information, please contact: [phone] Documents on File Type Date Recorded Patient Electronic News Gathering Editor Expl anation Advance Directives 2002 12:00 AM [...] Answer Comments Full Code: Discussed Care Teams Skein Bander Relationship Specialty Start Date End Date Elsewhere, Pcp PCP - General Internal Medicine 09/13/22
--- OUTSIDE RECORDS SUMMARY | 2024-07-03 00:01 | XMS_ITS | Referral Summary ---
Author Organization [facility] Address [address] [place] [address] Care Team Providers Care Sliver Cutter Name Role Phone Elsewhere, Pcp Primary Care Provider Unavailabl e Source Comments Patient records contain information from all sites at [facility]. For routine questions regarding patient records, call [phone] during business hours, M-F 8:00 AM - 5:00 PM Central Time. Record requests for emergency care only can be directed to [phone] at any time.[facility] Encounters Date Type Department Care Team Description 07/02/2024 Clinical Communication Division of Endocrinology in [place], [place] [address] [place] [address] Ciara Hebert M.D. INR Result 07/01/2024 8:41 AM DENTAL COORDINATOR - 07/01/2024 11:59 PM DENTAL COORDINATOR Hospital Encounter Department of Cardiovascular Diseases in [place], [place] [address] [place] [address] Mike Brewer M.D., Ph.D. Arrived Discharge Disposition: Home or Self Care 06/18/2024 2:30 PM DENTAL COORDINATOR Office Visit Division of Endocrinology in [place], [place] [address] [place] [address] Ciara Hebert M.D. Hypothyroidism Postsurgical (Primary Dx); Malignant Neoplasm Of Thyroid Papillary (HCC); Nodules Pulmonary Multiple 06/17/2024 8:41 AM DENTAL COORDINATOR - 06/17/2024 10:41 AM DENTAL COORDINATOR Hospital Encounter Department of Laboratory Medicine in [place] [address] [place] [address] Zara Garvey APRN, C.N.PDavis, D.N.P. Malignant Neoplasm Of Thyroid Papillary (HCC) Discharge Disposition: Home or Self Care 06/17/2024 10:42 AM DENTAL COORDINATOR Hospital Encounter Department of Radiology in [place], [place] [address] [place] [address] Zara Garvey APRN, C.N.P., D.N.P. Malignant Neoplasm Of Thyroid Papillary (HCC) Discharge Disposition: Home or Self Care 06/17/2024 10:43 AM DENTAL COORDINATOR - 06/17/2024 11:59 PM DENTAL COORDINATOR Hospital Encounter Department of Radiology in [place] [address] [place] [address] Zara Garvey APRN, C.N.P., D.N.P. Malignant Neoplasm Of Thyroid Papillary (HCC) Discharge Disposition: Home or Self Care 06/04/2024 8:56 AM CDT - 06/04/2024 11:41 AM CDT Hospital Encounter Department of Radiology, [place], [place] [address] [place] [phone] Devi Stafford APRN, C.N.Marilee., M.S.N. Prosthesis Aortic Valve Discharge Disposition: Home or Self Care 06/04/2024 8:20 AM CDT - 06/04/2024 8:55 AM CDT Hospital Encounter Department of Laboratory Medicine and Pathology, [place], [place] [address] [place] [phone] Devi Stafford APRN, C.N.P., M.S.N. Prosthesis Aortic Valve Discharge Disposition: Home or Self Care 06/04/2024 11:42 AM CDT - 06/04/2024 11:59 PM CDT Hospital Encounter Department of Cardiovascular Diseases in [place], [place] [address] [place] [phone] Devi Stafford APRN, C.N.Marilee., M.S.N. Prosthesis Aortic Valve Discharge Disposition: Home or Self Care 06/04/2024 2:15 PM CDT Office Visit Department of Cardiovascular Medicine in [place], [place] [address] [place] [phone] Devi Stafford APRN, C.N.P., M.S.N. Prosthesis Aortic Valve (Primary Dx); Aneurysm Abdominal Aortic Personal History 05/28/2024 10:00 AM CDT Clinical Communication Virtual Review in [place], [place] [address] [place] [address] Pre-visit Intake 05/09/2024 8:00 AM CDT Internal E-Consult Department of Vascular Medicine in [place], [place] [address] [place] [phone] Fran Gracia M.D. 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 Aneurysm Abdominal Aortic Personal History (Primary Dx) 05/03/2024 8:42 AM CDT - 05/03/2024 11:59 PM CDT Hospital Encounter Department of Radiology in [address] [phone] Devi Stafford APRN, C.N.P., M.S.N. Prosthesis Aortic Valve Discharge Disposition: Home or Self Care 04/03/2024 Clinical Communication Division of Endocrinology in [place], [place] [address] [place] [phone] Zara Garvey APRN, C.N.P., D.N.P. from Last 3 Months Allergies Active Allergy [...] 1 tablet by mouth daily. Centrum (per color worker) 8 Active acetaminophen (TYLENOL) 500 mg tablet Take 500-1,000 mg by mouth every 6 (six) hours as needed for pain. 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 1 to 4 times [...] Date Recorded PHQ-2 Score 5 01/25/2019 [facility] - Occupational Stress Questionnaire Answer [...] living situation today? I have a [facility] place to live 12/01/2023 Education Answer [...] Comments Blood Pressure 134/88 06/18/2024 2:25 PM DENTAL COORDINATOR Pulse 79 06/18/2024 2:25 PM DENTAL COORDINATOR Temperature 36.6 C (97.9 F) 04/10/2023 10:00 AM CDT Respiratory Rate 16 04/10/2023 6:41 AM CDT Oxygen Saturation 94% 04/10/2023 10:10 AM CDT Inhaled Oxygen Concentration - - Weight 69.9 kg (154 lb 1.6 oz) 06/18/2024 2:25 P M DENTAL COORDINATOR Height 167.7 cm (5' 6.02) 06/18/2024 2:25 PM CS T Body Mass Index 24.85 06/18/2024 2:25 PM DENTAL COORDINATOR Plan of Treatment Upcoming Encounters Date Type Department Care Team (Late st Contact Info) Description 09/18/2024 11:00 AM DENTAL COORDINATOR Appointment Department of Laboratory Medicine in [address] [phone] Ciara Hebert M.D. [address] [place] [phone] Medical Devices Implanted Type Area Training And Development Director Device Identifier Shelf Expiration Date Model / Serial / Lot Lead [id number] Pigment Mixer Attain Ability - Darling [id number] Implanted:Qty: 1 on 10/09/2017 Cardiac Lead Coronary Medtronic / [id number] / Description:Device Manufactu rer - [employer] Body Location - Other. Coronary Sinus. Device Status Text - CARD [id number]. Conversions - Default Historical Implant Device Implanted:03/07 (Quantity not on file) Cardiac Valve Prosthesis Aorta Description:Device Status Te xt - CardValve. pig valve placed on 11-16-2016. Mesh Or Patch-08/14/2022 Implanted:08/14 (Quantity not on file) Mesh or Patch Stomach Description:Hernia Mesh 2 Dental Bridges Misc Other Mouth Description:Upper and Lower Dental Bridge. Pacer [place] Xt Sr Mri - Darling [id number] Implanted:Qty: 1 on 10/09/2017 Pacemaker Other/Legacy - See Implant Description Medtronic / [id number] / Description:Device Manufactu rer - [facility] Body Location - Other. Left. Device Status Text - [id number]. Vascular Other-08/14/2016 Implanted:08/14 (Quantity not on file) Vascular Other Right: Arm Description:A/V fistula Procedures Procedure Name Priority Date/Time Associated Diagnosis Comments INTERFACED REMOTE DEVICE CHECK Routine 07/01/2024 8:41 AM DENTAL COORDINATOR US HEAD NECK SOFT TISSUE RAD - Routine (most inpatients and all outpatients) 06/17/2024 11:29 AM DENTAL COORDINATOR Malignant Neoplasm Of Thyroid Papillary (HCC) CT CHEST WITHOUT IV CONTRAST RAD - Routine (most inpatients and all outpatients) 06/17/2024 10:52 AM DENTAL COORDINATOR Malignant Neoplasm Of Thyroid Papillary (HCC) HC THYROGLOBULIN SERUM Routine 06/17/2024 8:47 AM DENTAL COORDINATOR T4 (THYROXINE), FREE, S Routine 06/17/2024 8:47 AM DENTAL COORDINATOR Malignant Neoplasm Of Thyroid Papillary (HCC) THYROID-STIMULATING HORMONE-SENSITIVE (S-TSH) Routine 06/17/2024 8:47 AM DENTAL COORDINATOR Malignant Neoplasm Of Thyroid Papillary (HCC) THYROGLOBULIN, TM, REFLEX TO LC-MS/MS OR IMMUNOASSAY, S Routine 06/17/2024 8:47 AM DENTAL COORDINATOR Malignant Neoplasm Of Thyroid Papillary (HCC) (TTE) [...] CAR CARDIAC DEVICE INTERROGATION (07/01/2024 8:41 AM DENTAL COORDINATOR) Date Time Interrogation Session [id number] [facility] LAB SYSTEM Type Interrogation Session Remote [facility] Implantable Pulse Generator Training And Development Director Medtronic startuply LAB SYSTEM Implantable Pulse Generator Type Pacemaker [facility] Implantable Pulse Generator Model Preeti XT SR MRI [id number] [facility] Implantable Pulse Generator Serial Number [id number] [facility] Implantable Pulse Generator Implant Date 20171009 [facility] Battery Remaining Longevity 88.0 mo [facility] Battery Voltage 2.990 [facility] Battery MECHANICAL REPAIR WORKER Trigger 2.625 [facility] Battery Status OK [facility] Cholo Statistic RV Percent Paced 99.47 [facility] Lead Channel Sensing Intrinsic Amplitude 21.125 [facility] Lead Channel Setting Sensing Sensitivity 0.90 [facility] Lead Channel Impedance Value 893 [facility] Lead Channel Pacing Threshold Amplitude 1.500 [facility] Lead Channel Pacing Threshold Pulse Width 0.4 [facility] Lead Channel Measurements Date and Time 2024-06-25 [facility] Lead Channel Setting Pacing Amplitude 3.000 [facility] Lead Channel Setting Pacing Pulse Width 0.4 [facility] Cholo Setting Mode (NBG Code) VVIR [facility] Cholo Setting Lower Rate Limit 60 [facility] Cholo Setting Maximum Sensor Rate 130 [facility] Lead Channel Setting Sensing Polarity Bipolar [facility] Lead Channel Setting Pacing Polarity Bipolar [facility] Lead Channel Pacing Threshold Polarity Bipolar [facility] Zone Setting Type Category VT [facility] Murj Rate 1 167 [facility] Zone Setting Status ENABLED [facility] Murj Zone ID 6 [facility] Implantable Lead Training And Development Director Medtronic [facility] Implantable Lead Model [id number] Attain Ability MRI SureScan [facility] Implantable Lead Location Left Ventricle [facility] Implantable Lead Connection Status Connected [facility] Implantable Lead Serial Number [id number] [facility] Implantable Lead Implant Date 20171009 [facility] Implantable Lead Special Function Lead length: 88.00 cm [facility] Anatomical Region Laterality Modality Other 07/01/2024 9:25 AM DENTAL COORDINATOR Impressions 07/01/2024 9:25 AM DENTAL COORDINATOR Encounter Impression: Title: Normal Remote: No Events [...] Head Neck Soft Tissue (06/17/2024 11:29 AM DENTAL COORDINATOR) Anatomical Region Laterality Modality Head and Neck, Ultrasound RS T LOS, Ultrasound ARZ LOS, Ultrasound FLA LOS N/A Ultrasound Impressions 06/17/2024 6:09 PM DENTAL COORDINATOR No evidence for local recurrence or metastatic disease. Narrative 06/17/2024 6:09 PM DENTAL COORDINATOR EXAM: US HEAD NECK SOFT TISSUE COMPARISON: [...] evidence for local recurrence or metastatic disease. Zara Garvey APRN, C.N.P., D.N.P. IMG US PROCEDURES Final Result * CT Chest without IV Contrast (06/17/2024 10:52 AM DENTAL COORDINATOR) Anatomical Region Laterality Modality Chest, Thoracic RST LOS, Tho racic ARZ LOS, Thoracic FLA LOS N/A Computed Tomography Impressions 06/17/2024 5:53 PM DENTAL COORDINATOR 1. No acute abnormality and no significant change compared to CTs dating back to 02/01/2023. 2. Bilateral pulmonary nodules ranging up to 6 mm in size are again seen. Consider a follow-up CT in 12 months for further evaluation. Narrative 06/17/2024 5:53 PM DENTAL COORDINATOR EXAM: CT CHEST WITHOUT IV CONTRAST COMPARISON: [...] further evaluation. Zara Garvey APRN, C.N.P., D.N.P. [facility] [place] PROCED[place] Final Result * (ABNORMAL) Thyroglobulin, Tumor Marker by Immunoassay (06/17/2024 8:47 AM [facility]) Thyroglobulin, Tumor Marker, IA 3.0(H) ng/mL 06/18/2024 11:16 AM [facility] Comment: ----REFERENCE VALUE---- Athyrotic <0.1 Intact Thyroid <=33 Thyroglobulin Interpretation SEE COMMENT 06/18/2024 11:16 AM [facility] Comment: Thyroglobulin (Tg) levels must be [...] testing methods are immunoenzymatic assays manufactured by [employer] and performed on the [employer] DXI 800. Values obtained from different assay methods or kits may be different and cannot be used interchangeably. The results cannot be interpreted as absolute evidence for the presence or absence of malignant disease. Blood 06/17/2024 8:47 AM DENTAL COORDINATOR 06/18/2024 8:58 AM DENTAL COORDINATOR Zara Garvey APRN, C.N.P., D.N.P. LAB BLO OD NON ADD-ON Final Result Performing Organization Address City/[facility]/ZIP Co de Phone Number [facility] [address] [address] [facility] [address] [address] * Thyroglobulin, Tumor Marker Reflex to LC-MS/MS or Immunoassay (06/17/2024 8:47 AM DENTAL COORDINATOR) Thyroglobulin Antibody, S <1.8 <1.8 IU/mL 06/18/2024 10:06 AM DENTAL COORDINATOR [facility] Comment: Thyroglobulin Antibody < 1.8 IU/mL. Thyroglobulin performed by Immunoassay to follow. Blood (Blood, Venous) 06/17/2024 8:47 AM DENTAL COORDINATOR 06/18/2024 8:58 AM DENTAL COORDINATOR Zara Garvey APRN, C.N.P., D.N.P. LAB BLO OD NON ADD-ON Final Result Performing Organization Address City/[facility]/ZIP Co de Phone Number [facility] [address] [address] [facility] [address] [address] * (ABNORMAL) S-TSH (Thyroid-Stimulating Hormone - Sensitive) (06/17/2024 8:47 AM DENTAL COORDINATOR) TSH, Sensitive 0.01(L) 0.3 - 4.2 mIU/L 06/17/2024 9:19 AM DENTAL COORDINATOR [facility] Blood (Blood, Venous) 06/17/2024 8:47 AM DENTAL COORDINATOR 06/17/2024 8:47 AM DENTAL COORDINATOR us Zara Garvey APRN, C.N.P., D.N.P. LAB BLO OD ADD-ON Final Result Performing Organization Address [facility]/ZIP Co de Phone Number [address] [address], [facility] in [address] [address] * (ABNORMAL) T4 (Thyroxine), Free (06/17/2024 8:47 AM DENTAL COORDINATOR) Pathologist [facility] T4 (Thyroxine), Free, P 2.5(H) 0.9 - 1.7 ng/dL 06/17/2024 9:19 AM DENTAL COORDINATOR [facility] Blood (Blood, Venous) 06/17/2024 8:47 AM DENTAL COORDINATOR 06/17/2024 8:47 AM DENTAL COORDINATOR us Zara Garvey APRN, C.N.P., D.N.P. LAB BLO OD ADD-ON Final Result Performing Organization Address [facility] Co de Phone Number [facility] [address] [place] [address], [facility] in [address] [address] * (TTE) 2D ECHO DOPPLER COLOR (06/04/2024 2:03 PM CDT) [facility] Ejection Fraction 55 MC CV EIMS Mid-Ascending [...] MUSE QTC Interval 537 ms MUSE R [place] 113 degrees MUSE T Wave [place] -47 degrees MUSE 06/04/2024 9:21 AM CDT [...] Lopez Devi Stafford APRN, C.N.P., M.S.N. ECG RHONA GALO Final Result MUSE NA * DX Chest [...] M.S.N. LAB BLOO D ADD-ON Final Result [facility] [address] [place] [address], [facility] [address] [place] [address] * (ABNORMAL) NT-Pro B-Type Natriuretic Peptide (BNP) [...] D ADD-ON Final Result Performing Organization Address [facility] [place] [address], [facility] [place] [address] * (ABNORMAL) Prothrombin Time (PT) (06/04/2024 8:54 AM CDT) Pathologist [facility] Prothrombin Time, P 41.3(H) 9.4 - 12.5 [...] ADD-ON Final Result Performing Organization Address City/[facility] Co de Phone Number [facility] [address] [place] [address], [facility] DTL [facility] [address] [place] [address] * (ABNORMAL) CBC with Differential, Blood (06/04/2024 [...] 8:54 AM CDT 06/04/2024 9:17 AM CDT us Devi Stafford APRN, C.N.P., M.S.N. LAB BLOO D ADD-ON Final Result [facility] [address] [place] [address], [facility] [address] [place] [address] [facility] [address] [place] [address] * Sodium (06/04/2024 8:54 AM CDT) Sodium, S 141 135 - 145 mmol/L 06/04/2024 10:12 AM CDT DTL Blood (Blood, Venous) 06/04/2024 8:54 AM CDT 06/04/2024 9:43 AM CDT Devi Stafford APRN, C.N.P., M.S.N. LAB BLOO D ADD-ON Final Result [facility] [address] [place] [address], [facility] [address] [place] [address] * Potassium (06/04/2024 8:54 AM CDT) Potassium, S 4.5 3.6 - 5.2 mmol/L 06/04/2024 10:12 AM CDT DTL Blood (Blood, Venous) 06/04/2024 8:54 AM CDT 06/04/2024 9:43 AM CDT Devi Stafford APRN, C.N.P., M.S.N. LAB BLOO D ADD-ON Final Result [facility] [address] [place] [address], [facility] [address] [place] [address] * (ABNORMAL) Glucose, Fasting (06/04/2024 8:54 AM CDT) Glucose, P 107(H) 70 - 100 mg/dL 06/04/2024 9:37 AM CDT DTL Last Intake 15 hr 06/04/2024 9:21 AM CDT DTL Blood (Blood, Venous) 06/04/2024 8:54 AM CDT 06/04/2024 9:21 AM CDT Jass Barnard APRN.N.P., M.S.N. LAB BLOO D NON ADD-ON Final Result [facility] [address] [place] [address], [facility] [address] [address] * (ABNORMAL) Creatinine with Estimated GFR (06/04/2024 8:54 AM CDT) Creatinine 2.26(H) 0.74 - 1.35 mg/dL 06/04/2024 10:12 AM CDT DTL Estimated GFR (eGFR) 28(L) >=60 mL/min/BSA 06/04/2024 10:12 AM CDT DTL Comment: Estimated GFR calculated using the 2020 CKD_EPI creatinine equation. Blood (Blood, Venous) 06/04/2024 8:54 AM CDT 06/04/2024 9:43 AM CDT Jass Barnard APRN.N.P., M.S.N. LAB BLOO D ADD-ON Final Result [facility] [address] [place] [address], [facility] [address] [place] [address] * Albumin (06/04/2024 8:54 AM CDT) Albumin, S 4.2 3.5 - 5.0 g/dL 06/04/2024 10:12 AM CDT DTL Blood (Blood, Venous) 06/04/2024 8:54 AM CDT 06/04/2024 9:43 AM CDT Devi Nixon Seven Stafford APRNNTato, M.S.N. LAB BLOO D ADD-ON Final Result [facility] [address] [place] [address], [facility] DTL [facility] [address] [place] [address] * US Aorta (05/03/2024 9:28 AM CDT) [...] previously 1.6cm. Devi Stafford APRN, C.N.P., M.S.N. [facility] ROCEDURES Edited Result - Final from Last 3 Months Insurance [facility] Advance Directives For more information, please contact: [phone] Documents on File Type Date Recorded Patient [employer] Advance Directives 2002 12:00 AM [...] Answer Comments Full Code: Discussed Care Teams Sliver Cutter Relationship Specialty Start Date End Date Elsewhere, Pcp PCP - General Internal Medicine 09/13/22
--- OUTSIDE RECORDS SUMMARY | 2024-07-03 00:02 | XMS_ITS | Encounter Summary ---
Author Organization [facility] Address [address] [place] [address] Care Team Providers Care Loss Prevention Coordinator Name Role Phone Elsewhere, Pcp Primary Care Provider Unavailabl e Reason for Referral * Outpatient (Routine) - Closed Specialty Diagnoses / Procedures Referred By Contac t Referred To Contact Diagnoses Malignant Neoplasm Of Thyroid Papillary (HCC) Procedures US Head Neck Soft Tissue US Head Neck Soft Tissue Zara Garvey APRN, C.N.P., D.N.P. [address] [place] [address] Phone: tel: fax: [facility] Region Referral ID Status Reason Start Date Expiration Date Visits Re quested Visits Authorized [id number] Closed 12/14/2023 12/13/2024 1 1 O UROLOGIST Reason for Visit * Outpatient (Routine) - Closed Specialty Diagnoses / Procedures Referred By Contac t Referred To Contact Diagnoses Malignant Neoplasm Of Thyroid Papillary (HCC) Procedures US Head Neck Soft Tissue US Head Neck Soft Tissue Zara Garvey APRN, C.N.P., D.N.P. [address] [place] [phone] Phone: tel: fax: [facility] Region Referral ID Status Reason Start Date Expiration Date Visits Re quested Visits Authorized [id number] Closed 12/14/2023 12/13/2024 1 1 Encounter Details Date Type Department Care Team (Late st Contact Info) Description 06/17/2024 10:43 AM NEURO UROLOGIST - 06/17/2024 11:59 PM NEURO UROLOGIST Hospital Encounter Department of Radiology in [place], [place] [address] [facility] [place] [phone] Zara Garvey, ROSAURA, C.N.P., D.N.P. [address] [place] [address] Malignant Neoplasm Of Thyroid Papillary (HCC) Discharge Disposition: Home or Self Care Social History Tobacco Use Types Packs/Day Years Used Date Smoking Tobacco: Former Cigarettes 0 01/12/1955 - 02/10/1985 Smokeless Tobacco: Never Alcohol Use Standard Drinks/Week Comments Yes 10 (1 standard drink = 0.6 oz pu re alcohol) occassional [facility] Utilities Answer Date Recorded In the past 12 months has e [employer], gas, oil, or water [employer] threatened to shut off services in your [...] week 08/07/2022 How often do you attend [facility] or episcopalian services? 1 to 4 times per year [...] [facility] - Occupational Stress Questionnaire Answer Date [...] 1 tablet by mouth daily. Centrum (per final armature tester) 10/09/2017 omeprazole (PriLOSEC) [address] capsuleIndication [...] Monday 3 tabs all other days 10/09/2017 levothyroxine (SYNTHROID, LEVOTHROID) 200 mcg tablet Take 1 tablet (200 mcg total) by mouth every morning before breakfast. 90 tablet 3 12/14/2023 documented as of this encounter Plan of Treatment Upcoming Encounters Date Type Department Care Team (Late st Contact Info) Description 09/18/2024 11:00 AM NEURO UROLOGIST Appointment Department of Laboratory Medicine in [address] [phone] Ciara Hebert M.D. [address] [place] [phone] documented as of this encounter Procedures Procedure Name Priority Date/Time Associated Diagnosis Comments US HEAD NECK SOFT TISSUE RAD - Routine (most inpatients and all outpatients) 06/17/2024 11:29 AM NEURO UROLOGIST Malignant Neoplasm Of Thyroid Papillary (HCC) documented in this encounter Results * US Head Neck Soft Tissue (06/17/2024 11:29 AM NEURO UROLOGIST) Anatomical Region Laterality Modality Head and Neck, Ultrasound RS T LOS, Ultrasound ARZ LOS, Ultrasound FLA LOS N/A Ultrasound Impressions 06/17/2024 6:09 PM NEURO UROLOGIST No evidence for local recurrence or metastatic disease. Narrative 06/17/2024 6:09 PM NEURO UROLOGIST EXAM: US HEAD NECK SOFT TISSUE COMPARISON: [...] C.N.P., D.N.P. IMG US PROCEDURES Final Result documented in this encounter Visit Diagnoses Diagnosis Malignant Neoplasm Of Thyroid Papillary (HCC) documented in this encounter Additional Health Concerns Assessment Noted Time PHQ-9 Depression Total Score: 5 03/06/20 18 6:00 PM CDT documented as of this encounter Care Teams Loss Prevention Coordinator Relationship Specialty Start Date End Date Elsewhere, Pcp PCP - General Internal Medicine 09/13/22 documented as of this encounter
--- OUTSIDE RECORDS SUMMARY | 2024-07-03 00:02 | XMS_ITS | Encounter Summary ---
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 [address] [place] [address] Phone: tel: fax: [facility] Referral ID Status Reason Start Date Expiration Date V isits Requested Visits Authorized [id number] Authorized 06/18/2024 06/18/2025 1 1 ICAL REHABILITATION LIAISON * Outpatient (Routine) - Authorized Specialty Diagnoses / Procedures Referred By Contac t Referred To Contact Endocrinology Diagnoses Malignant Neoplasm Of Thyroid Papillary (HCC) Ciara Hebert M.D. [address] [place] [address] Phone: tel: fax: [facility] Referral ID Status Reason Start Date Expiration Date V isits Requested Visits Authorized [id number] Authorized 06/18/2024 12/18/2025 1 1 ICAL REHABILITATION LIAISON * Outpatient (Routine) - Authorized Specialty Diagnoses / Procedures Referred By Contac t Referred To Contact Diagnoses Malignant Neoplasm Of Thyroid Papillary (HCC) Procedures US Head Neck Soft Tissue Ciara Hebert M.D. [address] [place] [phone] Phone: tel: fax: [facility] Referral ID Status Reason Start Date Expiration Date V isits Requested Visits Authorized [id number] Authorized 06/18/2024 06/18/2025 1 1 ICAL REHABILITATION LIAISON Reason for Visit * Outpatient (Routine) - Closed Specialty Diagnoses / Procedures Referred By Contac t Referred To Contact Endocrinology Diagnoses Malignant Neoplasm Of Thyroid Papillary (HCC) Zara Garvey APRN, C.N.P., D.N.P. [address] [place] [phone] Phone: tel: fax: Ciara Hebert M.D. [address] [place] [phone] Phone: tel: fax: Referral ID Status Reason Start Date Expiration Date Visits Re quested Visits Authorized [id number] Closed 12/14/2023 06/14/2025 1 1 Encounter Details Date Type Department Care Team (Latest Contact Info) Description 06/18/2024 2:30 PM CLINICAL REHABILITATION LIAISON Office Visit Division of Endocrinology in [place], [place] [address] [place] [phone] Ciara Hebert M.D. [address] [place] [phone] Hypothyroidism Postsurgical (Primary Dx); Malignant Neoplasm Of Thyroid Papillary (HCC); Nodules Pulmonary Multiple Social History Tobacco Use Types Packs/Day Years Used Date Smoking Tobacco: Former Cigarettes 0 01/12/1955 - 02/10/1985 Smokeless Tobacco: Never Alcohol Use Standard Drinks/Week Comments Yes 10 (1 standard drink = 0.6 oz pu re alcohol) occassional [facility] Utilities Answer Date Recorded In the past 12 months has th e [employer], gas, oil, or water [place] [employer] threatened to shut off services in your [...] often do you attend chur ch or sabianism services? 1 to 4 times [...] Date Recorded PHQ-2 Score 5 01/25/2019 [facility] ional [facility] - Occupational Stress Questionnaire Answer [...] your living situation today? I have a [facility] place to live 12/01/2023 Education Answer Date [...] Comments Blood Pressure 134/88 06/18/2024 2:25 PM CLINICAL REHABILITATION LIAISON Pulse 79 06/18/2024 2:25 PM CLINICAL REHABILITATION LIAISON Temperature - - Respiratory Rate - - Oxygen Saturation - - Inhaled Oxygen Concentration - - Weight 69.9 kg (154 lb 1.6 oz) 06/18/2024 2:25 P M CLINICAL REHABILITATION LIAISON Height 167.7 cm (5' 6.02) 06/18/2024 2:25 PM CS T Body Mass Index 24.85 06/18/2024 2:25 PM CLINICAL REHABILITATION LIAISON documented in this encounter Progress Notes * Ciara Hebert M.D. - 06/18/2024 2:30 PM CST SUBJECTIVE CHIEF COMPLAINT / REASON FOR VISIT Jose Kearney is a 83 y.o. male who presents for follow-up of thyroid cancer The patient verbally consented to an audio recording of their visit to assist with the completion of documentation. 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 Central compartment node dissection (bilateral area 6 node dissection.) Left neck dissection areas 2A, 3, and 4. Right neck dissection areas 3 and 4. Recurrent laryngeal nerve monitoring. Dr. Trivedi 04/18/2018 Biopsy/Pathology Stage Macy pT3b N1b PTC A. Thyroid, total thyroidectomy: Papillary thyroid carcinoma, classic subtype, forming multiple (4) masses ranging in size from 0.3 - 1.9 cm located in the left, right and isthmus portion of the thyroid. Extrathyroidal extension is present. Surgical margins are diffusely positive along the left lobe. See synoptic report. B. Soft tissue, right thyroid bed nodule ? parathyroid, biopsy: Benign parathyroid tissue. C. Lymph nodes, neck central compartment area , dissection: Multiple (4) lymph nodes are positive for metastatic carcinoma. D. Lymph nodes, left neck levels IIA-IV, select dissection: Multiple (5 of 23) neck lymph nodes are involved by metastatic papillary thyroid carcinoma, including lymph nodes in the following levels: 2 of 5 level IIA, 2 of 10 level III. 1 of 8 level IV. The largest lymph node involved by tumor measures 3.4 cm. The largest lymph node tumor deposit is located in level IIA and measures 3.4 cm in greatest dimension. E. Lymph nodes, right neck levels III-IV, select dissection: A single (1 of 10) neck lymph node is involved by metastatic grade 1 (of 4) papillary thyroid carcinoma, including lymph nodes at the following levels: 0 of 5 level III, 1 of 5 level IV. The largest lymph node tumor deposit is located in level IV and measures 2.8 cm in greatest dimension. F. Trachea, anterior perichondrium tracheal ring 1, excision: Negative for tumor. G. Trachea, anterior perichondrium tracheal ring 2, excision: Negative for tumor. H. Thyroid, left lateral thyroid bed fascia, biopsy: Negative for tumor. SYNOPTIC REPORT Procedure: Total thyroidectomy. Tumor Focality: Multifocal. Tumor Site: Right lobe, left lobe and isthmus. Tumor Size: 1.9 cm in greatest dimension. Histologic Type: Papillary carcinoma, classic subtype. Margins: Involved by carcinoma. Angioinvasion (Vascular Invasion): Not identified. Lymphatic Invasion: Present. Extrathyroidal Extension: Present. Invading only strap muscles. Regional Lymph Nodes Number of Lymph Nodes Involved: 11. Level . Number of Lymph Nodes Examined: 38. Level . Size of Largest Metastatic Deposit: 3.4 cm. Extranodal Extension: Present. Pathologic Staging (AJCC, 8th edition) TNM Descriptors: Not applicable. Primary Tumor: pT3b. Regional lymph nodes: pN1b. Distant Metastasis: Not applicable. 09/06/2018 - 09/06/2018 Radiation Therapy 104.07mCi of I131 given after thyrogen Pretreatment scan : Focal I-123 uptake along the expected location of the thyroglossal duct, consistent with residual functioning thyroid tissue. No correlate lesion is identified on CT. Findings could represent remnant versus small volume metastatic disease. No distal iodine avid metastatic disease outside of the neck. 11/26/2018 Critical Imaging FDG PET scan: No evidence for recurrent or metastatic thyroid malignancy. Indeterminate uptake in the prostate. 02/01/[address] chest w/o contrast 1. Multiple bilateral solid noncalcified new pulmonary nodules are worrisome for metastases. 2. Additional clustered nodularities are likely of infectious/inflammatory etiology. 3. Status post composite aortic valve graft replacement with interval slightly enlargement of the excluded ascending aortic aneurysm, detailed in the body of the report. 4. Additional findings are detailed in the body of the report. History of Present Illness The patient, a retiree with a history of cardiac and renal issues, presents for a follow-up consultation regarding his thyroid condition. Approximately 20 years ago, the patient was diagnosed with Graves' disease after experiencing unexplained weight loss. He underwent treatment with radioactive iodine and subsequently developed hypothyroidism, necessitating lifelong thyroid hormone replacement therapy. It seems he was treated by my previous colleague Dr. Bermudez in [place], [place] In 2007, the patient began experiencing cardiac issues, leading to an aortic valve replacement and the discovery of an aortic aneurysm. The patient's postoperative course was complicated by sepsis and acute kidney injury, necessitating dialysis. The patient was told he would likely require lifelong dialysis, prompting a move closer to a dialysis center. However, after eight months, the patient's kidney function spontaneously recovered. 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 This required another valve replacement and a prolonged intensive care unit stay. Following this, the patient had a pacemaker implanted, which he reports has significantly improved his energy levels. Regarding his thyroid condition, the patient underwent surgery for thyroid cancer in 2018, followedby radioactive iodine treatment in 2019. The patient reports no swallowing difficulties or voice changes. However, given his slow growth, it is anticipated that the patient will outlive any potential complications from these nodules. The patient's current thyroid hormone dose may be slightly high, potentially affecting his Coumadinmetabolism. The patient reports a recent INR of 3.4, above the therapeutic range of 2-3. He is on 200 mcg daily of levothyroxine Except a half tablet once per week. The following portions of the patient's history were reviewed and updated as appropriate: allergies, current medications, family history, medical history, social history, surgical history, and problem list. OBJECTIVE PHYSICAL EXAM Vitals: 06/18/24 1425 BP: 134/88 Pulse: 79 Height: 167.7 cm Weight: 69.9 kg Constitutional General: not in acute distress. Appearance: Normal appearance. HENT Head: Normocephalic and atraumatic. Mouth/Throat: Mouth: Mucous membranes are moist. Pharynx: No oropharyngeal exudate or posterior oropharyngeal erythema. Eyes Extraocular Movements: Extraocular movements intact. No conjunctival injection. Neck Comments: Thyroid is surgically absent without masses or adenopathy. Cardiovascular Rate and Rhythm: Normal rate and regular rhythm. Heart sounds: Normal heart sounds. No murmur heard. Pulmonary Effort: Pulmonary effort is normal. Breath sounds: Normal breath sounds. No wheezing or rales. Musculoskeletal General: No swelling. Skin General: Skin is warm and dry. Neurological General: No focal deficit present. Mental Status: alert. Comments: No tremor Psychiatric Mood and Affect: Mood normal. Behavior: Behavior normal. Thought Content: Thought content normal. Judgment: Judgment normal. Thyroglobulin, Tumor Marker, S Date Value Ref Range Status 12/10/2019 0.8 (H) ng/mL Final Comment: ----REFERENCE VALUE---- Athyrotic <0.1 Intact Thyroid <=33 09/06/2018 2.0 (H) ng/mL Final Comment: ----REFERENCE VALUE---- Athyrotic <0.1 Intact Thyroid <=33 09/03/2018 0.4 (H) ng/mL Final Comment: ----REFERENCE VALUE---- Athyrotic <0.1 Intact Thyroid <=33 05/29/2017 26 (H) Athyrotic <0.1; Intact Thyroid <=33; NG/ML Final 04/03/2017 32 (H) Athyrotic <0.1; Intact Thyroid <=33; NG/ML Final Thyroglobulin Antibody, S Date Value Ref Range Status 06/17/2024 <1.8 <1.8 IU/mL Final Comment: Thyroglobulin Antibody < 1.8 IU/mL. Thyroglobulin performed by Immunoassay to follow. 02/07/2024 <1.8 <1.8 IU/mL Final Comment: Thyroglobulin Antibody < 1.8 IU/mL. Thyroglobulin performed by Immunoassay to follow. 12/06/2023 <1.8 <1.8 IU/mL Final Comment: Thyroglobulin Antibody < 1.8 IU/mL. Thyroglobulin performed by Immunoassay to follow. 02/01/2023 <1.8 <1.8 IU/mL Final Comment: Thyroglobulin Antibody < 1.8 IU/mL. Thyroglobulin performed by Immunoassay to follow. 09/06/2022 <1.8 <1.8 IU/mL Final Comment: Thyroglobulin Antibody < 1.8 IU/mL. Thyroglobulin performed by Immunoassay to follow. 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, but stable pulmonary nodulesx 16 months - Endocrinology office visit (clinic) - US Head Neck Soft Tissue; Future; Expected date: 06/18/2025 - Thyroglobulin, Tumor Marker; Future; Expected date: 06/18/2025 - Endocrinology office visit (clinic); Future; Expected date: 06/18/2025 - CBC with Differential, Blood; Future; Expected date: 06/18/2025 - Renal Function Panel; Future; Expected date: 06/18/2025 #2 Hypothyroidism Postsurgical #3 Nodules Pulmonary Multiple Other orders - S-TSH (Thyroid-Stimulating Hormone - Sensitive); Future; Expected date: 06/18/2025 - T4 (Thyroxine), Free; Future; Expected date: 06/18/2025 - CT Chest without IV Contrast; Future; Expected date: 06/18/2025 - levothyroxine 175 mcg tablet; Take 1 tablet (175 mcg total) by mouth daily before morning meal., Starting 06/18/2024, Normal - S-TSH (Thyroid-Stimulating Hormone - Sensitive); Future; Expected date: 09/18/2024 - T4 (Thyroxine), Free; Future; Expected date: 09/18/2024 Assessment & Plan Papillary Thyroid Cancer Stable thyroglobulin levels and stable lung nodules over the past year and a half. Likely metastatic disease in the lungs, but extremely slow growing. No new symptoms or physical exam findings. -Continue monitoring with annual CT chest. -Check thyroglobulin levels in 2-3 months. Hyperthyroidism--goal TSH 0.3-0.5 if tolerated (higher then usual goal due to his cardiac comorbidities and age) Currently on Levothyroxine 200mcg daily, but dose may be too high for his cardiac comorbidities andage. We reviewed the potential impact of dose adjustments on Coumadin metabolism and INR levels. -Reduce Levothyroxine dose to 175mcg daily. -Check thyroid function tests in 2-3 months. Anticoagulation On Coumadin, recent INR 3.4. Possible interaction with current Levothyroxine dose. -Advise patient to monitor INR closely, especially after Levothyroxine dose reduction as he may require dose decrease in coumadin. -Consider adjusting Coumadin dose as needed based on INR results. Cardiac History History of aortic valve replacement, pacemaker placement, and sepsis. Currently asymptomatic. -Continue current cardiac management. General Health Maintenance -Continue regular follow-up appointments and monitoring. Return 1 [address] with ultrasound and CT of the chest, sooner if problems arise. He is in agreement with our plans. ICAL REHABILITATION LIAISON documented in this encounter Plan of Treatment Upcoming Encounters Date Type Department Care Team (Late st Contact Info) Description 09/18/2024 11:00 AM CLINICAL REHABILITATION LIAISON Appointment Department of Laboratory Medicine in [address] [phone] Ciara Hebert M.D. [address] [place] [address] Scheduled Orders Name Type Priority Associated Diagnoses Orde r Schedule US Head Neck Soft Tissue Imaging Malignant Neoplasm Of Thyroid Papillary (HCC) Expected: 06/18/2025 (Approximate), Expires: 07/08/2026 Thyroglobulin, Tumor Marker Lab Routine Malignant Neoplasm Of Thyroid Papillary (HCC) Expected: 06/18/2025 (Approximate), Expires: 07/08/2026 S-TSH (Thyroid-Stimulati ng Hormone - Sensitive) Lab Routine Malignant Neoplasm Of Thyroid Papillary (HCC) Hypothyroidism Postsurgical Expected: 06/18/2025 (Approximate), Expires: 07/08/2026 T4 (Thyroxine), Free Lab Routine Malignant Neoplasm Of Thyroid Papillary (HCC) Hypothyroidism Postsurgical Expected: 06/18/2025 (Approximate), Expires: 07/08/2026 CT Chest without IV Contrast Imaging RAD - Routine (most inpatients and all outpatients) 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 Expected: 06/18/2025 (Approximate), Expires: 09/18/2025 CBC with Differential, Blood Lab Routine Malignant Neoplasm Of Thyroid Papillary (HCC) Expected: 06/18/2025 (Approximate), Expires: 09/18/2025 Renal Function Panel Lab Routine Malignant Neoplasm Of Thyroid Papillary (HCC) Expected: 06/18/2025 (Approximate), Expires: 09/18/2025 S-TSH (Thyroid-Stimulati ng Hormone - Sensitive) Lab Routine Malignant Neoplasm Of Thyroid Papillary (HCC) Hypothyroidism Postsurgical Expected: 09/18/2024 (Approximate), Expires: 09/18/2025 T4 (Thyroxine), Free Lab Routine Malignant Neoplasm Of Thyroid Papillary (HCC) Hypothyroidism Postsurgical Expected: 09/18/2024 (Approximate), Expires: 09/18/2025 Scheduled Referrals Name Type Priority Associated Diagnoses Order Schedule Endocrinology office visit (clinic) Outpatient Referral Routine Malignant Neoplasm Of Thyroid Papillary (HCC) Expected: 06/18/2025 (Approximate), Expires: 07/08/2026 documented as of this encounter Visit Diagnoses Diagnosis Hypothyroidism Postsurgical- Primary 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
--- OUTSIDE RECORDS SUMMARY | 2024-07-03 00:02 | XMS_ITS | Encounter Summary ---
Author Organization [facility] Address [address] [place] [address] Care Team Providers Care Explosives Engineer Name Role Phone Elsewhere, Pcp Primary Care Provider Unavailabl e Reason for Referral * MRI/CAT/PET Scan (Routine) - Closed Specialty Diagnoses / Procedures Referred By Contac t Referred To Contact Radiology Diagnoses Malignant Neoplasm Of Thyroid Papillary (HCC) Procedures CT Chest without IV Contrast CT Chest without IV Contrast CT Chest without IV Contrast Zara Garvey APRN, C.N.P., D.N.P. [address] [place] [phone] Phone: tel: fax: [facility] Region Referral ID Status Reason Start Date Expiration Date Visits Re quested Visits Authorized [id number] Closed 12/14/2023 12/13/2024 1 1 MIXER Reason for Visit * MRI/CAT/PET Scan (Routine) - Closed Specialty Diagnoses / Procedures Referred By Contac t Referred To Contact Radiology Diagnoses Malignant Neoplasm Of Thyroid Papillary (HCC) Procedures CT Chest without IV Contrast CT Chest without IV Contrast CT Chest without IV Contrast Zara Garvey APRN, C.N.P., D.N.P. [address] [place] [phone] Phone: tel: fax: [facility] Region Referral ID Status Reason Start Date Expiration Date Visits Re quested Visits Authorized [id number] Closed 12/14/2023 12/13/2024 1 1 Encounter Details Date Type Department Care Team (Late st Contact Info) Description 06/17/2024 10:42 AM LIME MIXER Hospital Encounter Department of Radiology in [place], [place] [address] [place] [address] Zara Garvey, ROSAURA, C.N.P., D.N.P. [address] [place] [address] Malignant Neoplasm Of Thyroid Papillary (HCC) Discharge Disposition: Home or Self Care Social History Tobacco Use Types Packs/Day Years Used Date Smoking Tobacco: Former Cigarettes 0 01/12/1955 - 02/10/1985 Smokeless Tobacco: Never Alcohol Use Standard Drinks/Week Comments Yes 10 (1 standard drink = 0.6 oz pu re alcohol) occassional [facility] Utilities Answer Date Recorded In the past 12 months has [facility] [employer] gas, oil, or water [employer] threatened to shut off services in [...] week 08/07/2022 How often do you attend [facility] or spiritism services? 1 to 4 times [...] Answer Date Recorded PHQ-2 Score 5 01/25/2019 [facility] of Occupat ional Health [...] your living situation today? I have a [facility] place to live 12/01/2023 Education Answer [...] 1 tablet by mouth daily. Centrum (per portable machine sander) 10/09/2017 omeprazole (PriLOSEC) [address] capsuleIndication [...] morning before breakfast. 90 tablet 3 12/14/2023 4 documented as of this encounter Plan of Treatment Upcoming Encounters Date Type Department Care Team (Late st Contact Info) Description 09/18/2024 11:00 AM LIME MIXER Appointment Department of Laboratory Medicine in [address] [phone] Ciara Hebert M.D. [address] [place] [address] documented as of this encounter Procedures Procedure Name Priority Date/Time Associated Diagnosis Comments CT CHEST WITHOUT IV CONTRAST RAD - Routine (most inpatients and all outpatients) 06/17/2024 10:52 AM LIME MIXER Malignant Neoplasm Of Thyroid Papillary (HCC) documented in this encounter Results * CT Chest without IV Contrast (06/17/2024 10:52 AM LIME MIXER) Anatomical Region Laterality Modality Chest, Thoracic RST LOS, Tho racic ARZ LOS, Thoracic FLA LOS N/A Computed Tomography Impressions 06/17/2024 5:53 PM LIME MIXER 1. No acute abnormality and no significant change compared to CTs dating back to 02/01/2023. 2. Bilateral pulmonary nodules ranging up to 6 mm in size are again seen. Consider a follow-up CT in 12 months for further evaluation. Narrative 06/17/2024 5:53 PM LIME MIXER EXAM: CT CHEST WITHOUT IV CONTRAST COMPARISON: [...] CT in 12 months for further evaluation. us Zara Garvey APRN, C.N.P., D.N.P. IMG CT PROCEDURES Final Result documented in this encounter Visit Diagnoses Diagnosis Malignant Neoplasm Of Thyroid Papillary (HCC) documented in this encounter Additional Health Concerns Assessment Noted Time PHQ-9 Depression Total Score: 5 03/06/20 18 6:00 PM CDT documented as of this encounter Care Teams Explosives Engineer Relationship Specialty Start Date End Date Elsewhere, Pcp PCP - General Internal Medicine 09/13/22 documented as of this encounter
--- OUTSIDE RECORDS SUMMARY | 2024-07-03 00:02 | XMS_ITS | Encounter Summary ---
Author Organization [facility] Address [address] [place] [address] Care Team Providers Care Green Meat Packer Name Role Phone Elsewhere, Pcp Primary Care Provider Unavailabl e Reason for Visit * Reason Onset Date Comments INR Result 07/02/2024 Encounter Details Date Type Department Care Team (Latest Contact Info) Description 07/02/2024 Clinical Communication Division of Endocrinology in [place], [place] [address] [place] [phone] Ciara Hebert M.D. [address] [place] [address] INR Result Social History Tobacco Use Types Packs/Day Years Used Date Smoking Tobacco: Former Cigarettes 0 01/12/1955 - 02/10/1985 Smokeless Tobacco: Never Alcohol Use Standard Drinks/Week Comments Yes 10 (1 standard drink = 0.6 oz pu re alcohol) occassional [facility] Utilities Answer Date Recorded In the past 12 months has [facility] [email or web address], gas, oil, or water [employer] threatened to shut off services in your [...] Answer Date Recorded PHQ-2 Score 5 01/25/2019 [facility] of Occupat ional Health - Occupational Stress [...] your living situation today? I have a [facility] place to live 12/01/2023 Education [...] st Contact Info) Description 09/18/2024 11:00 AM RADIOSONDE OPERATOR Appointment Department of Laboratory Medicine in [address] [phone] Ciara Hebert M.D. [address] [place] [address] documented as of this encounter Visit Diagnoses Not on filedocumented in this encounter Additional Health Concerns Assessment Noted Time PHQ-9 Depression Total Score: 5 03/06/20 18 6:00 PM CDT documented as of this encounter Care Teams Green Meat Packer Relationship Specialty Start Date End Date Elsewhere, Pcp PCP - General Internal Medicine 09/13/22 documented as of this encounter
--- OUTSIDE RECORDS SUMMARY | 2024-07-03 00:02 | XMS_ITS | Encounter Summary ---
Author Organization [facility] Address [address] [place] [address] Care Team Providers Care Supervisor Graphite Name Role Phone Elsewhere, Pcp Primary Care Provider Unavailabl e Encounter Details Date Type Department Care Team (Late st Contact Info) Description 06/17/2024 8:41 AM SERVICE WRITER - 06/17/2024 10:41 AM SERVICE WRITER Hospital Encounter Department of Laboratory Medicine in [place] [address] [place] [phone] Zara Garvey APRN, C.N.P., D.N.P. [address] [place] [phone] Malignant Neoplasm Of Thyroid Papillary (HCC) Discharge Disposition: Home or Self Care Social History Tobacco Use Types Packs/Day Years Used Date Smoking Tobacco: Former Cigarettes 0 01/12/1955 - 02/10/1985 Smokeless Tobacco: Never Alcohol Use Standard Drinks/Week Comments Yes 10 (1 standard drink = 0.6 oz pu re alcohol) occassional [facility] Utilities Answer Date Recorded In [...] How often do you attend chur or synagogue services? 1 to 4 times per year 08/07/2022 Do you belong to any clubs o r organizations such as presybeterian groups, unions, fraternal or athletic groups, or [...] Answer Date Recorded PHQ-2 Score 5 01/25/2019 [facility] of Occupat ional Health - Occupational Stress [...] your living situation today? I have a [facility] place to live [...] 1 tablet by mouth daily. Centrum (per transportation refrigeration technician) 10/09/2017 omeprazole (PriLOSEC) [address] capsuleIndication [...] st Contact Info) Description 09/18/2024 11:00 AM SERVICE WRITER Appointment Department of Laboratory Medicine in [address] [phone] Ciara Hebert M.D. [address] [place] [address] documented as of this encounter Procedures Procedure Name Priority Date/Time Associated Diagnosis Comments HC THYROGLOBULIN SERUM Routine 8:47 AM SERVICE WRITER THYROGLOBULIN, TM, REFLEX TO LC-MS/MS OR IMMUNOASSAY, S Routine 06/17/2024 8:47 AM SERVICE WRITER Malignant Neoplasm Of Thyroid Papillary (HCC) THYROID-STIMULATING HORMONE-SENSITIVE (S-TSH) Routine 06/17/2024 8:47 AM SERVICE WRITER Malignant Neoplasm Of Thyroid Papillary (HCC) T4 (THYROXINE), FREE, S Routine 06/17/2024 8:47 AM SERVICE WRITER Malignant Neoplasm Of Thyroid Papillary (HCC) documented in this encounter Results * (ABNORMAL) Thyroglobulin, Tumor Marker by Immunoassay (06/17/2024 8:47 AM SERVICE WRITER) Thyroglobulin, Tumor Marker, IA 3.0(H) ng/mL 06/18/2024 11:16 AM [facility] Comment: ----REFERENCE VALUE---- Athyrotic <0.1 Intact Thyroid <=33 Thyroglobulin Interpretation SEE COMMENT 06/18/2024 11:16 AM [facility] Comment: Thyroglobulin (Tg) levels must be interpreted [...] testing methods are immunoenzymatic assays manufactured by [employer] and performed on the [employer] DXI 800. Values obtained from different assay methods or kits may be different and cannot be used interchangeably. The results cannot be interpreted as absolute evidence for the presence or absence of malignant disease. Blood 06/17/2024 8:47 AM SERVICE WRITER 06/18/2024 8:58 AM SERVICE WRITER Zara Garvey APRN, C.N.P., D.N.P. LAB BLO OD NON ADD-ON Final Result Performing Organization Address City/[facility]/ZIP Co de Phone Number [facility] [address] [place] [address] [facility] [address] [place] [address] * (ABNORMAL) T4 (Thyroxine), Free (06/17/2024 8:47 AM SERVICE WRITER) T4 (Thyroxine), Free, P 2.5(H) 0.9 - 1.7 ng/dL 06/17/2024 9:19 AM SERVICE WRITER [facility] Blood (Blood, Venous) 06/17/2024 8:47 AM SERVICE WRITER 06/17/2024 8:47 AM SERVICE WRITER Zara Garvey APRN, C.N.P., D.N.P. LAB BLO OD ADD-ON Final Result Performing Organization Address City/[facility] Co de Phone Number [facility] [address] [place], [place] [id number], [place] [place] [address] * (ABNORMAL) S-TSH (Thyroid-Stimulating Hormone - Sensitive) (06/17/2024 8:47 AM SERVICE WRITER) TSH, Sensitive 0.01(L) 0.3 - 4.2 mIU/L 06/17/2024 9:19 AM SERVICE WRITER [facility] Blood (Blood, Venous) 06/17/2024 8:47 AM SERVICE WRITER 06/17/2024 8:47 AM SERVICE WRITER Zara Garvey APRN, C.N.P., D.N.P. LAB BLO OD ADD-ON Final Result [facility] [address] [place] [address], [place] [facility] in [place] [address] [place] [address] * Thyroglobulin, Tumor Marker Reflex to LC-MS/MS or Immunoassay (06/17/2024 8:47 AM SERVICE WRITER) Thyroglobulin Antibody, S <1.8 <1.8 IU/mL 06/18/2024 10:06 AM SERVICE WRITER [facility] Comment: Thyroglobulin Antibody < 1.8 IU/mL. Thyroglobulin performed by Immunoassay to follow. Blood (Blood, Venous) 06/17/2024 8:47 AM SERVICE WRITER 06/18/2024 8:58 AM SERVICE WRITER Zara Garvey APRN, C.N.P., D.N.P. LAB BLO OD NON ADD-ON Final Result [facility] [address] [place] [address] [facility] [address] [place] [address] documented in this encounter Visit Diagnoses Diagnosis Malignant Neoplasm Of Thyroid Papillary (HCC) documented in this encounter Additional Health Concerns Assessment Noted Time PHQ-9 Depression Total Score: 5 03/06/20 18 6:00 PM CDT documented as of this encounter Care Teams Supervisor Graphite Relationship Specialty Start Date End Date Elsewhere, Pcp PCP - General Internal Medicine 09/13/22 documented as of this encounter
--- OUTSIDE RECORDS SUMMARY | 2024-07-03 00:02 | XMS_ITS | Encounter Summary ---
Author Organization [facility] Address [address] [place] [address] Care Team Providers Care Machine Steak Tenderizer Name Role Phone Elsewhere, Pcp Primary Care Provider Unavailabl e Encounter Details Date Type Department Care Team (Latest Contact Info) Description 07/01/2024 8:41 AM EDGE SANDER - 07/01/2024 11:59 PM EDGE SANDER Hospital Encounter Department of Cardiovascular Diseases in [place], [place] [address] [place] [address] Mike Brewer M.D., Ph.D. [address] [place] [address] Arrived Discharge Disposition: Home or Self Care Social History Tobacco Use Types Packs/Day Years Used Date Smoking Tobacco: Former Cigarettes 0 01/12/1955 - 02/10/1985 Smokeless Tobacco: Never Alcohol Use Standard Drinks/Week Comments Yes 10 (1 standard drink = 0.6 oz pu re alcohol) occassional [facility] Utilities Answer Date Recorded In the past 12 months has [employer], gas, oil, or water [employer] threatened to shut off services in your [...] How often do you attend chur or episcopalian services? 1 to 4 times [...] Answer Date Recorded PHQ-2 Score 5 01/25/2019 [facility] of Occupat ional Health - Occupational [...] living situation today? I have a [facility] place to live 12/01/2023 Education Answer [...] 20 mEq by mouth daily. 02/10/2020 levothyroxine 175 mcg tablet Take 1 tablet (175 mcg total) by mouth daily before morning meal. 90 tablet 3 06/18/2024 melatonin 3 mg tablet Take 1 tablet by mouth at bedtime. 05/23/2017 multivitamin tablet Take 1 tablet by mouth daily. Centrum (per infant lead teacher) 10/09/2017 omeprazole (PriLOSEC) 20 mg DR [...] st Contact Info) Description 09/18/2024 11:00 AM EDGE SANDER Appointment Department of Laboratory Medicine in [address] [phone] Ciara Hebert M.D. [address] [place] [address] documented as of this encounter Procedures Procedure Name Priority Date/Time Associated Diagnosis Comments INTERFACED REMOTE DEVICE CHECK Routine 07/01/2024 8:41 AM EDGE SANDER documented in this encounter Results * CAR CARDIAC DEVICE INTERROGATION (07/01/2024 8:41 AM EDGE SANDER) Date Time Interrogation Session [id number] [facility] Type Interrogation Session Remote [facility] Implantable Pulse Generator Amortization Schedule Clerk [employer] [facility] Implantable Pulse Generator Type Pacemaker [facility] Implantable Pulse Generator Model [place] XT SR MRI [id number] [facility] Implantable Pulse Generator Serial Number [id number] [facility] Implantable Pulse Generator Implant Date [id number] [facility] Battery Remaining Longevity 88.0 mo [facility] Battery Voltage 2.990 [facility] Battery RUBBER TILE FLOOR LAYER Trigger 2.625 [facility] Battery Status OK [facility] Cholo Statistic RV Percent Paced 99.47 [facility] Lead Channel Sensing Intrinsic Amplitude 21.125 [facility] Lead Channel Setting Sensing Sensitivity 0.90 [facility] Lead Channel Impedance Value 893 [facility] Lead Channel Pacing Threshold Amplitude 1.500 [facility] Lead Channel Pacing Threshold Pulse Width 0.4 [facility] Lead Channel Measurements Date and [...] Polarity Bipolar [facility] Lead Channel Pacing Threshold Polarity Bipolar [facility] Zone Setting Type Category VT [facility] Murj Rate 1 167 [facility] Zone Setting Status ENABLED [facility] Murj Zone ID 6 [facility] Implantable Lead Amortization Schedule Clerk Medtronic [facility] Implantable Lead Model 4196 Attain Ability MRI SureScan [facility] Implantable Lead Location Left Ventricle [facility] Implantable Lead Connection Status Connected [facility] Implantable Lead Serial Number [id number] [facility] Implantable Lead Implant Date [id number] [facility] Implantable Lead Special Function Lead length: 88.00 cm [facility] Anatomical Region Laterality Modality Other 07/01/2024 9:25 AM EDGE SANDER Impressions 07/01/2024 9:25 AM EDGE SANDER Encounter Impression: Title: Normal Remote: No Events [...] CARDI AC DEVICE Edited Result - Final documented in this encounter Visit Diagnoses Not on filedocumented in this encounter Additional Health Concerns Assessment Noted Time PHQ-9 Depression Total Score: 5 03/06/20 18 6:00 PM CDT documented as of this encounter Care Teams Machine Steak Tenderizer Relationship Specialty Start Date End Date Elsewhere, Pcp PCP - General Internal Medicine 09/13/22 documented as of this encounter
--- OUTSIDE RECORDS SUMMARY | 2024-07-03 00:03 | XMS_ITS | Encounter Summary ---
Author Organization [facility] Address [address] [place] [address] Care Team Providers Care Sexer Name Role Phone Elsewhere, Pcp Primary Care Provider Unavailabl e Reason for Referral * Outpatient (Routine) - Authorized Specialty Diagnoses / Procedures Referred By Contac t Referred To Contact Diagnoses Prosthesis Aortic Valve Procedures ECG 12 Lead Devi Stafford APRN, C.NTato, M.S.N. [address] [place] [phone] Phone: tel: fax: 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 [address] [place] [address] Phone: tel: fax: [facility] Referral ID Status Reason Start Date Expiration Date V isits Requested Visits Authorized [id number] Authorized 06/04/2024 06/04/2025 1 1 * Outpatient (Routine) - Authorized Specialty Diagnoses / Procedures Referred By Jennac t Referred To Contact Diagnoses Prosthesis Aortic Valve Procedures DX Chest AP or PA and Lateral 2 Views Deiv Stafford APRN, C.N.P., M.S.N. [address] [place] [phone] Phone: tel: fax: [facility] Referral ID Status Reason Start Date Expiration Date V isits Requested Visits Authorized [id number] Authorized 06/04/2024 06/04/2025 1 1 * Outpatient (Routine) - Authorized Specialty Diagnoses / Procedures Referred By Jennac t Referred To Contact Cardiovascular Disease Devi Stafford APRN, C.N.P., M.S.N. [address] [place] [phone] Phone: tel: fax: [facility] Referral ID Status Reason Start Date Expiration Date V isits Requested Visits Authorized [id number] Authorized 06/04/2024 12/04/2025 1 1 * Outpatient (Routine) - Authorized Specialty Diagnoses / Procedures Referred By Contac t Referred To Contact Diagnoses Aneurysm Abdominal Aortic Personal History Procedures US Aorta Devi Stafford APRN, C.N.P., M.S.N. [address] [place] [phone] Phone: tel: fax: [facility] Referral ID Status Reason Start Date Expiration Date V isits Requested Visits Authorized [id number] Authorized 06/04/2024 06/04/2025 1 1 Reason for Visit * Outpatient (Routine) - Closed Specialty Diagnoses / Procedures Referred By Jessica patel Referred To Contact Cardiovascular Disease Devi Stafford APRN, C.N.P., M.S.N. [address] [place] [phone] Phone: tel: fax: [facility] Referral ID Status Reason Start Date Expiration Date Visits Re quested Visits Authorized [id number] Closed 05/02/2023 05/01/2026 1 1 Encounter Details Date Type Department Care Team (Late st Contact Info) Description 06/04/2024 2:15 PM CDT Office Visit Department of Cardiovascular Medicine in [place], [place] [address] [place] [phone] Devi Stafford APRN, C.N.P., M.S.N. [address] [place] [phone] Prosthesis Aortic Valve (Primary Dx); Aneurysm Abdominal Aortic Personal History Social History Tobacco Use Types Packs/Day Years Used Date Smoking Tobacco: Former Cigarettes 0 01/12/1955 - 02/10/1985 Smokeless Tobacco: Never Alcohol Use Standard Drinks/Week Comments Yes 10 (1 standard drink = 0.6 oz pu re alcohol) occassional [facility] Utilities Answer Date Recorded In the past 12 months has [facility] [employer], oil, or water [employer] threatened to shut off services in your [...] week 08/07/2022 How often do you attend [facility] or latter-day services? 1 to 4 times per year 08/07/2022 Do you belong to any clubs o r organizations such as rastafari groups, unions, fraternal or athletic groups, or [...] [facility] of Occupat ional Health [...] your living situation today? I have a [facility] place to live 12/01/2023 Education Answer [...] pleasant 83 y.o. male who presents to [facility] for follow up.He has a [...] 06/04/2024 504 QTC Interval 06/04/2024 537 R [place] 06/04/2024 113 T Wave [place] 06/04/2024 -47 Hospital Outpatient Visit on 06/04/2024 [...] answered. Electronically signed by: Devi Stafford APRN, C.NTripp., M.S.N. 06/04/24 2:15 PM CDT documented in this encounter Plan of Treatment Upcoming Encounters Date Type Department Care Team (Late st Contact Info) Description 09/18/2024 11:00 AM EMS EDUCATOR Appointment Department of Laboratory Medicine in [address] [phone] Ciara Hebert M.D. [address] [place] [address] Scheduled Orders Name Type Priority Associated Diagnoses [...] documented as of this encounter Care Teams Sexer Relationship Specialty Start Date End Date Elsewhere, Pcp PCP - General Internal Medicine 09/13/22 documented as of this encounter
--- OUTSIDE RECORDS SUMMARY | 2024-07-03 00:03 | XMS_ITS | Encounter Summary ---
Author Organization [facility] Address [address] [place] [address] Care Team Providers Care Pipe Crew Foreman Name Role Phone Elsewhere, Pcp Primary Care Provider Unavailabl e Reason for Visit * Reason Onset Date Comments Pre-visit Intake 05/28/2024 Encounter Details Date Type Department Care Team (Latest Contact Info) Description 05/28/2024 10:00 AM CDT Clinical Communication Virtual Review in [address] [phone] Pre-visit Intake Social History Tobacco Use Types Packs/Day Years Used Date Smoking Tobacco: Former Cigarettes 0 01/12/1955 - 02/10/1985 Smokeless Tobacco: Never Tobacco Cessation:Counseling Given: Not Answered Alcohol Use Standard Drinks/Week Comments Yes 10 (1 standard drink = 0.6 oz pu re alcohol) occassional [facility] Utilities Answer Date Recorded In the past 12 months has [facility] [employer], gas, oil, or water [employer] threatened to shut off services in your [...] How often do you attend chur or restorationist services? 1 to 4 times per year [...] 5 01/25/2019 [facility] - Occupational Stress Questionnaire Answer Date [...] your living situation today? I have a [facility] place to live 12/01/2023 Education [...] st Contact Info) Description 09/18/2024 11:00 AM MANUAL ARTS THERAPY TEACHER Appointment Department of Laboratory Medicine in [address] [phone] Ciara Hebert M.D. [address] [place] [phone] documented as of this encounter Visit Diagnoses Not on filedocumented in this encounter Additional Health Concerns Assessment Noted Time PHQ-9 Depression Total Score: 5 03/06/20 18 6:00 PM CDT documented as of this encounter Care Teams Pipe Crew Foreman Relationship Specialty Start Date End Date Elsewhere, Pcp PCP - General Internal Medicine 09/13/22 documented as of this encounter
--- OUTSIDE RECORDS SUMMARY | 2024-07-03 00:03 | XMS_ITS | Encounter Summary ---
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 200 [place] [address] Phone: tel: fax: [facility] Referral ID Status Reason Start Date Expiration Date Visits Re quested Visits Authorized [id number] Closed 05/02/2023 05/01/2024 1 1 Encounter Details Date Type Department Care Team (Latest Contact Info) Description 06/04/2024 11:42 AM CDT - 06/04/2024 11:59 PM CDT Hospital Encounter Department of Cardiovascular Diseases in [place], [place] [address] [place] [address] Devi Stafford APRN, C.N.P., M.S.N. [address] [place] [address] Prosthesis Aortic Valve Discharge Disposition: Home or Self Care Social History Tobacco Use Types Packs/Day Years Used Date Smoking Tobacco: Former Cigarettes 0 01/12/1955 - 02/10/1985 Smokeless Tobacco: Never Alcohol Use Standard Drinks/Week Comments Yes 10 (1 standard drink = 0.6 oz pu re alcohol) occassional [facility] Utilities Answer Date Recorded In the past 12 months has [facility] [employer], gas, oil, or water [employer] threatened to shut off services in [...] week 08/07/2022 How often do you attend [facility] or taoist services? 1 to 4 times [...] PHQ-2 Score 5 01/25/2019 [facility] - Occupational Stress Questionnaire Answer [...] living situation today? I have a [facility] place to live 12/01/2023 Education [...] 1 tablet by mouth daily. Centrum (per bus monitor) 10/09/2017 omeprazole (PriLOSEC) [address] capsuleIndication [...] st Contact Info) Description 09/18/2024 11:00 AM RADIO OFFICER Appointment Department of Laboratory Medicine in [address] [phone] Ciara Hebert M.D. [address] [place] [phone] documented as of this encounter Procedures Procedure [...] documented as of this encounter Care Teams Voice Network Engineer Relationship Specialty Start Date End Date Elsewhere, Pcp PCP - General Internal Medicine 09/13/22 documented as of this encounter
--- OUTSIDE RECORDS SUMMARY | 2024-07-03 00:03 | XMS_ITS | Encounter Summary ---
Author Organization [facility] Address [address] [place] [address] Care Team Providers Care Delivery Technician Name Role Phone Elsewhere, Pcp Primary Care Provider Unavailabl e Reason for Referral * Outpatient (Routine) - Closed Specialty Diagnoses / Procedures Referred By Contac t Referred To Contact Diagnoses Prosthesis Aortic Valve Procedures DX Chest AP or PA and Lateral 2 Views Devi Stafford APRN, C.NTripp., M.S.N. 200 [place] [address] Phone: tel: fax: [facility] Referral ID Status Reason Start Date Expiration Date Visits Re quested Visits Authorized [id number] Closed 05/02/2023 05/01/2024 1 1 Reason for Visit * Outpatient (Routine) - Closed Specialty Diagnoses / Procedures Referred By Contac t Referred To Contact Diagnoses Prosthesis Aortic Valve Procedures DX Chest AP or PA and Lateral 2 Views Devi Stafford APRN, C.N.P., M.S.N. 200 [place] [address] Phone: tel: fax: [facility] Referral ID Status Reason Start Date Expiration Date Visits Re quested Visits Authorized [id number] Closed 05/02/2023 05/01/2024 1 1 Encounter Details Date Type Department Care Team (Latest Contact Info) Description 06/04/2024 8:56 AM CDT - 06/04/2024 11:41 AM CDT Hospital Encounter Department of Radiology, [facility], in [place], [place] [address] [place] [phone] Devi Stafford APRN, C.N.P., M.S.N. [address] [place] [phone] Prosthesis Aortic Valve Discharge Disposition: Home or Self Care Social History Tobacco Use Types Packs/Day Years Used Date Smoking Tobacco: Former Cigarettes 0 01/12/1955 - 02/10/1985 Smokeless Tobacco: Never Alcohol Use Standard Drinks/Week Comments Yes 10 (1 standard drink = 0.6 oz pu re alcohol) occassional [facility] Utilities Answer Date Recorded In the past 12 months has [facility] [employer], gas, oil, or water [employer] threatened to shut off services in [...] 08/07/2022 How often do you attend [facility] or rastafari services? 1 to 4 times [...] Answer Date Recorded PHQ-2 Score 5 01/25/2019 [facility] - Occupational Stress Questionnaire Answer [...] 1 tablet by mouth daily. Centrum (per software analyst) 10/09/2017 omeprazole (PriLOSEC) [address] capsuleIndication [...] st Contact Info) Description 09/18/2024 11:00 AM SNACK STEWARD Appointment Department of Laboratory Medicine in [address] [phone] Ciara Hebert M.D. [address] [place] [phone] documented as of this encounter Procedures Procedure [...] documented as of this encounter Care Teams Delivery Technician Relationship Specialty Start Date End Date Elsewhere, Pcp PCP - General Internal Medicine 09/13/22 documented as of this encounter
--- OUTSIDE RECORDS SUMMARY | 2024-07-03 00:03 | XMS_ITS | Encounter Summary ---
Author Organization [facility] Address [address] [place] [address] Care Team Providers Care Scientific Laboratory Supervisor Name Role Phone Elsewhere, Pcp Primary Care Provider Unavailabl e Encounter Details Date Type Department Care Team (Latest Contact Info) Description 06/04/2024 8:20 AM CDT - 06/04/2024 8:55 AM CDT Hospital Encounter Department of Laboratory Medicine and Pathology, [facility] in [place], [place] [address] [place] [address] Devi Stafford, ROSAURA, C.N.P., M.S.N. [address] [place] [phone] Prosthesis Aortic Valve Discharge Disposition: Home or [...] often do you attend chur ch or sikh services? 1 to 4 times [...] Answer Date Recorded PHQ-2 Score 5 01/25/2019 [facility] of Occupat ional Health - Occupational Stress [...] your living situation today? I have a [facility] place to live 12/01/2023 Education Answer Date [...] 1 tablet by mouth daily. Centrum (per environmental compliance engineer) 10/09/2017 omeprazole (PriLOSEC) [address] capsuleIndication [...] st Contact Info) Description 09/18/2024 11:00 AM MEAT WRAPPER Appointment Department of Laboratory Medicine in [address] [phone] Ciara Hebert M.D. [address] [facility] [place] [address] documented as of this encounter Procedures Procedure [...] AM CDT 06/04/2024 9:43 AM CDT Devi S Seven Stafford APRNNTato, M.S.N. LAB BLOO D ADD-ON Final Result [facility] [address] [place] [address], [facility] [address] [place] [address] * Lipid Panel (06/04/2024 8:54 AM CDT) [...] 06/04/2024 9:43 AM CDT Devi Tiffani Stafford APRN C.N.P., M.S.N. LAB BLOO D ADD-ON Final Result [facility] [address] [place] [address], [facility] DTL [facility] [address] [place] [address] * (ABNORMAL) CBC with Differential, Blood (06/04/2024 [...] D ADD-ON Final Result Performing Organization Address City/[facility]/ZIP Co de Phone Number [facility] 200 [place] [address], [facility] 200 [place], [place] [phone] [place] [address] 200 [place] [address] * (ABNORMAL) Prothrombin Time (PT) (06/04/2024 8:54 AM CDT) [facility] [address] Prothrombin Time, P 41.3(H) 9.4 - 12.5 sec 06/04/2024 9:58 AM CDT DTL INR 3.7 0.9 - 1.1 06/04/2024 9:58 AM CDT DTL Comment: ----ADDITIONAL INFORMATION---- Standard intensity warfarin therapeutic range: 2.0 to 3.0 High intensity warfarin therapeutic range: 2.5 to 3.5 Blood (Blood, Venous) 06/04/2024 8:54 AM CDT 06/04/2024 9:17 AM CDT Seven Barnard APRNN.P., M.S.N. LAB BLOO D ADD-ON Final Result [facility] 200 [place] [address], [facility] 200 [place] [address] * Sodium (06/04/2024 8:54 AM CDT) Sodium, S 141 135 - 145 mmol/L 06/04/2024 10:12 AM CDT DTL Blood (Blood, Venous) 06/04/2024 8:54 AM CDT 06/04/2024 9:43 AM CDT Seven Barnard APRNN.Marilee., M.S.N. LAB BLOO D ADD-ON Final Result Performing Organization Address [facility] Co de Phone Number [facility] [address] 200 [place] [address] * Potassium (06/04/2024 8:54 AM CDT) Potassium, S 4.5 3.6 - 5.2 mmol/L 06/04/2024 10:12 AM CDT DTL Blood (Blood, Venous) 06/04/2024 8:54 AM CDT 06/04/2024 9:43 AM CDT Jass Barnard APRN.N.P., M.S.N. LAB BLOO D ADD-ON Final Result Performing Organization Address [facility] Co de Phone Number [facility] [address] 200 [place] [address] * (ABNORMAL) Glucose, Fasting (06/04/2024 8:54 AM CDT) Glucose, P 107(H) 70 - 100 mg/dL 06/04/2024 9:37 AM CDT DTL Last Intake 15 hr 06/04/2024 9:21 AM CDT DTL Blood (Blood, Venous) 06/04/2024 8:54 AM CDT 06/04/2024 9:21 AM CDT Devi Stafford APRN, C.NTripp., M.S.N. LAB BLOO D NON ADD-ON Final Result [facility] 200 [place] [address], [facility]] 200 [place] [address] * (ABNORMAL) Creatinine with Estimated GFR (06/04/2024 8:54 AM CDT) Creatinine 2.26(H) 0.74 - 1.35 mg/dL 06/04/2024 10:12 AM CDT DTL Estimated GFR (eGFR) 28(L) >=60 mL/min/BSA 06/04/2024 10:12 AM CDT DTL Comment: Estimated GFR calculated using the 2020 CKD_EPI creatinine equation. Blood (Blood, Venous) 06/04/2024 8:54 AM CDT 06/04/2024 9:43 AM CDT Devi Nixon Seven Stafford APRNNTripp., M.S.N. LAB BLOO D ADD-ON Final Result Performing Organization Address City/[facility]/ZIP Co de Phone Number [facility] 200 [place] [address], [facility]3] 200 [place] [address] * Albumin (06/04/2024 8:54 AM CDT) Albumin, S 4.2 3.5 - 5.0 g/dL 06/04/2024 10:12 AM CDT DTL Blood (Blood, Venous) 06/04/2024 8:54 AM CDT 06/04/2024 9:43 AM CDT Devi Nixon Jass Stafford APRN.N.P., M.S.N. LAB BLOO D ADD-ON Final Result [facility] [address] [place] [address], [facility] DTL [facility] 200 [place] [address] documented in this encounter Visit Diagnoses Diagnosis Prosthesis Aortic Valve documented in this encounter Additional Health Concerns Assessment Noted Time PHQ-9 Depression Total Score: 5 03/06/20 18 6:00 PM CDT documented as of this encounter Care Teams Scientific Laboratory Supervisor Relationship Specialty Start Date End Date Elsewhere, Pcp PCP - General Internal Medicine 09/13/22 documented as of this encounter
--- OUTSIDE RECORDS SUMMARY | 2024-07-03 00:04 | XMS_ITS | Encounter Summary ---
Author Organization [facility] Address [address] [place] [address] Care Team Providers Care Net Developer With Wcf Name Role Phone Elsewhere, Pcp Primary Care Provider Unavailabl e Reason for Visit * Outpatient (Routine) - Closed Specialty Diagnoses / Procedures Referred By Jessica patel Referred To Contact Vascular Medicine Diagnoses Aneurysm Abdominal Aortic Personal History Procedures Vascular Medicine - General eConsult Devi Stafford, ROSAURA, C.N.P., M.S.N. [address] [place] [phone] Phone: tel: fax: [facility] Referral ID Status Reason Start Date Expiration Date Visits Re quested Visits Authorized [id number] Closed 05/07/2024 05/07/2025 1 1 Encounter Details Date Type Department Care Team (Latest Contact Info) Description 05/09/2024 8:00 AM CDT Internal E-Consult Department of Vascular Medicine in [place], [place] 200 [place] [address] Fran Gracia M.D. 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); Aneurysm Abdominal Aortic Personal History Social History Tobacco Use Types Packs/Day Years Used Date Smoking Tobacco: Former Cigarettes 0 01/12/1955 - 01/16/1985 Smokeless Tobacco: Never Alcohol Use Standard Drinks/Week Comments Yes 10 (1 standard drink = 0.6 oz pu re alcohol) occassional [facility] Utilities Answer Date Recorded In the past 12 months has th e [email or web address], [employer], oil, or water [employer] threatened to shut off services in your [...] any clubs o r organizations such as christianity groups, unions, fraternal or athletic groups, or [...] Answer Date Recorded PHQ-2 Score 5 01/25/2019 [facility] - Occupational Stress Questionnaire Answer Date [...] your living situation today? I have a [facility] place to live 12/01/2023 Education Answer [...] based entirely upon information available in the [facility] electronic medical record. CHIEF COMPLAINT / REASON [...] in view of the minimal size exchange underwriting consultant the last 2 years, it is probably [...] st Contact Info) Description 09/18/2024 11:00 AM PROCESS DEVELOPMENT TECHNICIAN Appointment Department of Laboratory Medicine in [address] [phone] Ciara Hebert M.D. [address] [place] [phone] documented as of this encounter Visit Diagnoses Diagnosis Abdominal Aortic Aneurysm Without Rupture Unspecified (HCC)- Primary Aneurysm Abdominal Aortic Personal History documented in this encounter Additional Health Concerns Assessment Noted Time PHQ-9 Depression Total Score: 5 03/06/20 18 6:00 PM CDT documented as of this encounter Care Teams Net Developer With [employer] Relationship Specialty Start Date End Date Elsewhere, Pcp PCP - General Internal Medicine 09/13/22 documented as of this encounter
--- OUTSIDE RECORDS SUMMARY | 2024-07-03 00:04 | XMS_ITS | Encounter Summary ---
Author Organization [facility] Address [address] [place] [address] Care Team Providers Care Cutter And Presser Name Role Phone Elsewhere, Pcp Primary Care Provider Unavailabl e Reason for Referral * Outpatient (Routine) - Closed Specialty Diagnoses / Procedures Referred By Jennac t Referred To Contact Diagnoses Prosthesis Aortic Valve Procedures Aorta Devi Stafford APRN, C.NTato, M.S.N. 200 [place] [address] Phone: tel: fax: [facility] Referral ID Status Reason Start Date Expiration Date Visits Re quested Visits Authorized [id number] Closed 05/02/2023 05/01/2024 1 1 Reason for Visit * Outpatient (Routine) - Closed Specialty Diagnoses / Procedures Referred By Contac t Referred To Contact Diagnoses Prosthesis Aortic Valve Procedures Aorta Devi Stafford APRN, C.NTato, M.S.N. 200 [place] [address] Phone: tel: fax: [facility] Referral ID Status Reason Start Date Expiration Date Visits Re quested Visits Authorized [id number] Closed 05/02/2023 05/01/2024 1 1 Encounter Details Date Type Department Care Team (Latest Contact Info) Description 05/03/2024 8:42 AM CDT - 05/03/2024 11:59 PM CDT Hospital Encounter Department of Radiology in [place] [address] [place] [address] Devi Stafford APRN CDavisNDavisPDavis, M.S.N. [address] [place] [address] Prosthesis Aortic Valve Discharge Disposition: Home or Self Care Social History Tobacco Use Types Packs/Day Years Used Date Smoking Tobacco: Former Cigarettes 0 01/12/1955 - 01/16/1985 Smokeless Tobacco: Never Alcohol Use Standard Drinks/Week Comments Yes 10 (1 standard drink = 0.6 oz pu re alcohol) occassional [facility] Utilities Answer Date Recorded In the past 12 months has [employer], gas, oil, or water [employer] threatened to shut off services in your [...] do you attend [facility] or confucianism services? 1 to 4 times [...] Answer Date Recorded PHQ-2 Score 5 01/25/2019 [facility] - Occupational Stress Questionnaire Answer Date [...] tablet by mouth daily. Centrum (per supervisor crack off) 10/09/2017 omeprazole (PriLOSEC) [address] capsuleIndication [...] st Contact Info) Description 09/18/2024 11:00 AM CHIPPER Appointment Department of Laboratory Medicine in [address] [phone] Ciara Hebert M.D. [address] [place] [address] documented as of this encounter Procedures Procedure [...] 1.6cm. us Devi Stafford APRN, C.N.P., M.S.N. [facility] Edited Result - Final documented in this encounter Visit Diagnoses Diagnosis Prosthesis Aortic Valve documented in this encounter Additional Health Concerns Assessment Noted Time PHQ-9 Depression Total Score: 5 03/06/20 18 6:00 PM CDT documented as of this encounter Care Teams Cutter And Presser Relationship Specialty Start Date End Date Elsewhere, Pcp PCP - General Internal Medicine 09/13/22 documented as of this encounter
--- OUTSIDE RECORDS SUMMARY | 2024-07-03 00:04 | XMS_ITS | Encounter Summary ---
Author Organization [facility] Address [address] [place] [address] Care Team Providers Care Electrical Subcontractor Name Role Phone Elsewhere, Pcp Primary Care Provider Unavailabl e Reason for Visit * Reason Onset Date Comments Pre-visit Testing Orders 03/12/2024 Encounter Details Date Type Department Care Team (Latest Contact Info) Description 03/12/2024 Clinical Communication Department of Cardiovascular Medicine in [place], [place] [address] [place] [address] Devi Stafford APRN, C.N.P., M.S.N. [address] [place] [phone] Pre-visit Testing Orders Social History Tobacco Use Types Packs/Day Years Used Date Smoking Tobacco: Former Cigarettes 0 01/12/1955 - 01/16/1985 Smokeless Tobacco: Never Alcohol Use Standard Drinks/Week Comments Yes 10 (1 standard drink = 0.6 oz pu re alcohol) occassional [facility] Utilities Answer Date Recorded In the past 12 months has [facility] [employer], gas, oil, or water [facility] threatened to shut off services in [...] How often do you attend chur or mormon services? 1 to 4 times per year 08/07/2022 Do you belong to any clubs o r organizations such as oriental orthodox groups, unions, fraternal or athletic groups, [...] Answer Date Recorded PHQ-2 Score 5 01/25/2019 [facility] of Occupat ionin Health - Occupational Stress Questionnaire Answer Date [...] st Contact Info) Description 09/18/2024 11:00 AM STAFF PHARMACIST HOSPITAL Appointment Department of Laboratory Medicine in [address] [phone] Ciara Hebert M.D. [address] [place] [address] documented as of this encounter Visit Diagnoses Not on filedocumented in this encounter Additional Health Concerns Assessment Noted Time PHQ-9 Depression Total Score: 5 03/06/20 18 6:00 PM CDT documented as of this encounter Care Teams Electrical Subcontractor Relationship Specialty Start Date End Date Elsewhere, Pcp PCP - General Internal Medicine 09/13/22 documented as of this encounter
--- OUTSIDE RECORDS SUMMARY | 2024-07-03 00:04 | XMS_ITS | Encounter Summary ---
Author Organization [facility] Address [address] [place] [address] Care Team Providers Care Hospital Clinic Assistant Name Role Phone Elsewhere, Pcp Primary Care Provider Unavailabl e Encounter Details Date Type Department Care Team (Late st Contact Info) Description 04/03/2024 Clinical Communication Division of Endocrinology in [place], [place] [address] [place] [phone] Zara Garvey, ROSAURA, C.N.P., D.N.P. [address] [place] [phone] Social History Tobacco Use Types Packs/Day Years Used Date Smoking Tobacco: Former Cigarettes 0 01/12/1955 - 01/16/1985 Smokeless Tobacco: Never Alcohol Use Standard Drinks/Week Comments Yes 10 (1 standard drink = 0.6 oz pu re alcohol) occassional [facility] Utilities Answer Date Recorded In the past 12 months has [facility] [employer] oil, or water [employer] threatened to shut off services in your [...] How often do you attend chur or sikhism services? 1 to 4 times per year [...] 5 01/25/2019 [facility] of Occupat ional Health - Occupational Stress [...] your living situation today? I have a [facility] place to live 12/01/2023 Education Answer [...] st Contact Info) Description 09/18/2024 11:00 AM DESIGN ENGINEER MARINE EQUIPMENT Appointment Department of Laboratory Medicine in [address] [phone] Ciara Hebert M.D. [address] [place] [address] documented as of this encounter Visit Diagnoses Not on filedocumented in this encounter Additional Health Concerns Assessment Noted Time PHQ-9 Depression Total Score: 5 03/06/20 18 6:00 PM CDT documented as of this encounter Care Teams Hospital Clinic Assistant Relationship Specialty Start Date End Date Elsewhere, Pcp PCP - General Internal Medicine 09/13/22 documented as of this encounter
--- OUTSIDE RECORDS SUMMARY | 2024-07-03 00:04 | XMS_ITS | Encounter Summary ---
Author Organization [facility] Address [address] [place] [phone] Care Team Providers Care Projection Engineer Name Role Phone Elsewhere, Pcp Primary Care Provider Unavailabl e Encounter Details Date Type Department Care Team (Late st Contact Info) Description 03/27/2024 8:57 AM CDT - 03/27/2024 11:59 PM CDT Hospital Encounter Department of Laboratory Medicine and Pathology, [facility] in [place], [place] [address] [place] [phone] Zara Garvey, ROSAURA, C.N.P., D.N.P. [address] [place] [phone] Malignant Neoplasm Of Thyroid Papillary (HCC) Discharge Disposition: Home or Self Care Social History Tobacco Use Types Packs/Day Years Used Date Smoking Tobacco: Former Cigarettes 0 01/12/1955 - 01/16/1985 Smokeless Tobacco: Never Alcohol Use Standard Drinks/Week Comments Yes 10 (1 standard drink = 0.6 oz pu re alcohol) occassional [facility] Utilities Answer Date Recorded In the [...] How often do you attend chur or latter day services? 1 to 4 times per year [...] Answer Date Recorded PHQ-2 Score 5 01/25/2019 [facility] - Occupational Stress [...] your living situation today? I have a [facility] place to live 12/01/2023 Education [...] 1 tablet by mouth daily. Centrum (per main line assembler) 10/09/2017 omeprazole (PriLOSEC) [address] capsuleIndication [...] 12/14/2023 4 documented as of this encounter Miscellaneous Notes [...] had discussedestablishing you with one of my Bushing Press Operator colleagues given your complex thyroid cancer history. We had planned for that to be around June 2024. Any luck with scheduling this? I would recommend contacting appointment line [phone] to start scheduling. I look forward to your reply. Shelbi Gardiner documented in this encounter Plan of Treatment Upcoming Encounters Date Type Department Care Team (Late st Contact Info) Description 09/18/2024 11:00 AM ASSISTANT CHIEF TRAIN DISPATCHER Appointment Department of Laboratory Medicine in [address] [phone] Ciara Hebert M.D. [address] [place] [phone] documented as of this encounter Procedures Procedure [...] OD ADD-ON Final Result Performing Organization Address [facility] Co de Phone Number [facility] 200 [place] [address] * (ABNORMAL) S-TSH (Thyroid-Stimulating Hormone - Sensitive) (03/27/2024 9:12 AM CDT) TSH, Sensitive 0.02(L) 0.3 - 4.2 mIU/L 03/27/2024 10:17 AM CDT DTL Blood (Blood, Venous) 03/27/2024 9:12 AM CDT 03/27/2024 9:52 AM CDT Zara Garvey APRN, C.N.P., D.N.P. LAB BLO OD ADD-ON Final Result Performing Organization Address [facility] Co de Phone Number [facility] [address] 200 [place] [address] documented in this encounter Visit Diagnoses Diagnosis Malignant Neoplasm Of Thyroid Papillary (HCC) documented in this encounter Additional Health Concerns Assessment Noted Time PHQ-9 Depression Total Score: 5 03/06/20 18 6:00 PM CDT documented as of this encounter Care Teams Projection Engineer Relationship Specialty Start Date End Date Elsewhere, Pcp PCP - General Internal Medicine 09/13/22 documented as of this encounter
--- OUTSIDE RECORDS SUMMARY | 2024-07-03 00:04 | XMS_ITS | Encounter Summary ---
Author Organization [facility] Address [address] [place] [address] Care Team Providers Care Chefs Name Role Phone Elsewhere, Pcp Primary Care Provider Unavailabl e Reason for Referral * MRI/CAT/PET Scan (Routine) - Closed Specialty Diagnoses / Procedures Referred By Contac t Referred To Contact Radiology Diagnoses Malignant Neoplasm Of Thyroid Papillary (HCC) Procedures CT Chest without IV Contrast CT Chest without IV Contrast CT Chest without IV Contrast Zara Garvey APRN, C.N.P., D.N.P. 200 [place] [address] Phone: tel: fax: [facility] Region Referral ID Status Reason Start Date Expiration Date Visits Re quested Visits Authorized [id number] Closed 12/14/2023 12/13/2024 1 1 * Outpatient (Routine) - Closed Specialty Diagnoses / Procedures Referred By Contac t Referred To Contact Diagnoses Malignant Neoplasm Of Thyroid Papillary (HCC) Procedures US Head Neck Soft Tissue US Head Neck Soft Tissue Zara Garvey APRN, C.N.P., D.N.P. [address] [place] [phone] Phone: tel: fax: [facility] Region Referral ID Status Reason Start Date Expiration Date Visits Re quested Visits Authorized [id number] Closed 12/14/2023 12/13/2024 1 1 * Outpatient (Routine) - Closed Specialty Diagnoses / Procedures Referred By Contac t Referred To Contact Endocrinology Diagnoses Malignant Neoplasm Of Thyroid Papillary (HCC) Zara Garvey APRN, C.N.Yvrose, D.N.P. [address] [place] [phone] Phone: tel: fax: Ciara Hebert M.D. [address] [place] [phone] Phone: tel: fax: Referral ID Status Reason Start Date Expiration Date Visits Re quested Visits Authorized [id number] Closed 12/14/2023 06/14/2025 1 1 Scheduling Instructions Please schedule with any of the Thyroid Consultants (MD only) for 6 months from December 2023 Reason for Visit * Outpatient (Routine) - Closed Specialty Diagnoses / Procedures Referred By Contac t Referred To Contact Endocrinology Diagnoses Malignant Neoplasm Of Thyroid Papillary (HCC) Jemal Murrell M.B.B.S., M.D. [facility] Referral ID Status Reason Start Date Expiration Date Visits Re quested Visits Authorized [id number] Closed 02/01/2023 01/31/2026 1 1 Encounter Details Date Type Department Care Team (Late st Contact Info) Description 12/14/2023 3:00 PM CDT Virtual Visit Division of Endocrinology in [place], [place] [address] [place] [phone] Zara Garvey APRN, C.N.PDavis, D.N.P. [address] [place] [phone] Malignant Neoplasm Of Thyroid Papillary (HCC) Social History Tobacco Use Types Packs/Day Years Used Date Smoking Tobacco: Former Cigarettes 0 01/12/1955 - 01/16/1985 Smokeless Tobacco: Never Alcohol Use Standard Drinks/Week Comments Yes 10 (1 standard drink = 0.6 oz pu re alcohol) occassional [facility] Utilities Answer Date Recorded In the past [...] week 08/07/2022 How often do you attend [facility] or bahai services? 1 to 4 times [...] Answer Date Recorded PHQ-2 Score 5 01/25/2019 [facility] - Occupational Stress Questionnaire Answer [...] this encounter Progress Notes * Zara Garvey APRN C.N.P., D.N.P. - 12/14/2023 3:00 PM CDT CHIEF COMPLAINT / REASON FOR VISIT Jose Kearney is a 82 y.o. male presenting virtually today for follow up of papillary thyroid carcinoma Consult conducted via real-time audio/video technology by Zara Garvey APRN, Jass.N.P., D.N.P. in [facility] to the patient in Patient's Home Phone [...] reviewed by our pathologist here at [place] who concurred with this diagnosis. His treatment was somewhat delayed due to his cardiac issues, but in March 2017 between hospitalizations he had a further ultrasound of the soft tissue head and neck here at [place]. This revealed multiple enlarged lymph nodes in [...] to the strapmuscles. Overall the staging is [id number] and this is high risk disease. Of [...] 09/06/2018. His pre treatment scan revealed focal [id number] along the expected location of the thyroglossal [...] retreatment with YUSUF was discussed. Today, Jose Luke Kearney, confirms taking 175 mcg of levothyroxine [...] Bone Mineral Density (BMD) analysis performed on Wayna with serial number [id number]. FINDINGS: Left Hip: Femur Neck: BMD = [...] / PLAN #1. Metastatic papillary thyroid cancer- [id number]- possible mets to lung? #2. Status post [...] sooner with symptoms/concerns documented in this encounter Miscellaneous Notes * Addendum Note - Samantha Haley - 12/14/2023 3:00 PM CDTAddended by: SAMANTHA HALEY on: 06/10/2024 10:52 AM Modules accepted: Orders * Addendum Note - Heather Alarcon - 12/14/2023 3:00 PM CDTAddended by: HEATHER ALARCON on: 06/10/2024 01:53 PM Modules accepted: Orders documented in this encounter Plan of Treatment Upcoming Encounters Date Type Department Care Team (Late st Contact Info) Description 09/18/2024 11:00 AM SUPERVISOR FORCE ADJUSTMENT Appointment Department of Laboratory Medicine in [address] [phone] Ciara Hebert M.D. [address] [place] [phone] Scheduled Referrals Name Type Priority Associated Diagnoses Order Schedule Endocrinology office visit (clinic) Outpatient Referral Routine Malignant Neoplasm Of Thyroid Papillary (HCC) Expected: 06/15/2024 (Approximate), Expires: 03/15/2025 documented as of this encounter Results * US Head Neck Soft Tissue (06/17/2024 11:29 AM SUPERVISOR FORCE ADJUSTMENT) Anatomical Region Laterality Modality Head and Neck, Ultrasound RS T LOS, Ultrasound ARZ LOS, Ultrasound FLA LOS N/A Ultrasound Impressions 06/17/2024 6:09 PM SUPERVISOR FORCE ADJUSTMENT No evidence for local recurrence or metastatic disease. Narrative 06/17/2024 6:09 PM SUPERVISOR FORCE ADJUSTMENT EXAM: US HEAD NECK SOFT TISSUE COMPARISON: [...] Chest without IV Contrast (06/17/2024 10:52 AM SUPERVISOR FORCE ADJUSTMENT) Anatomical Region Laterality Modality Chest, Thoracic RST LOS, Tho racic ARZ LOS, Thoracic FLA LOS N/A Computed Tomography Impressions 06/17/2024 5:53 PM SUPERVISOR FORCE ADJUSTMENT 1. No acute abnormality and no significant change compared to CTs dating back to 02/01/2023. 2. Bilateral pulmonary nodules ranging up to 6 mm in size are again seen. Consider a follow-up CT in 12 months for further evaluation. Narrative 06/17/2024 5:53 PM SUPERVISOR FORCE ADJUSTMENT EXAM: CT CHEST WITHOUT IV CONTRAST COMPARISON: [...] IMG CT PROCEDURES Final Result * (ABNORMAL) T4 (Thyroxine), Free (06/17/2024 8:47 AM SUPERVISOR FORCE ADJUSTMENT) T4 (Thyroxine), Free, P 2.5(H) 0.9 - 1.7 ng/dL 06/17/2024 9:19 AM SUPERVISOR FORCE ADJUSTMENT [facility] Blood (Blood, Venous) 06/17/2024 8:47 AM SUPERVISOR FORCE ADJUSTMENT 06/17/2024 8:47 AM SUPERVISOR FORCE ADJUSTMENT Zara Garvey APRN, C.N.P., D.N.P. LAB BLO OD ADD-ON Final Result [facility] [address] [place] [phone], [facility] [place] [address] [place] [phone] * (ABNORMAL) S-TSH (Thyroid-Stimulating Hormone - Sensitive) (06/17/2024 8:47 AM SUPERVISOR FORCE ADJUSTMENT) TSH, Sensitive 0.01(L) 0.3 - 4.2 mIU/L 06/17/2024 9:19 AM SUPERVISOR FORCE ADJUSTMENT [facility] Blood (Blood, Venous) 06/17/2024 8:47 AM SUPERVISOR FORCE ADJUSTMENT 06/17/2024 8:47 AM SUPERVISOR FORCE ADJUSTMENT Result [facility] Zara Garvey APRN, Jass.N.P., D.N.P. LAB BLO OD ADD-ON Final Result Performing Organization Address City/[facility]/ZIP Co de Phone Number [facility] [address] [place] [phone], [facility] [place] [address] [place] [phone] * Thyroglobulin, Tumor Marker Reflex to LC-MS/MS or Immunoassay (06/17/2024 8:47 AM SUPERVISOR FORCE ADJUSTMENT) Thyroglobulin Antibody, S <1.8 <1.8 IU/mL 06/18/2024 10:06 AM SUPERVISOR FORCE ADJUSTMENT [facility] Comment: Thyroglobulin Antibody < 1.8 IU/mL. Thyroglobulin performed by Immunoassay to follow. Blood (Blood, Venous) 06/17/2024 8:47 AM SUPERVISOR FORCE ADJUSTMENT 06/18/2024 8:58 AM SUPERVISOR FORCE ADJUSTMENT Result [facility] Zara Garvey APRN, C.N.P., D.N.P. LAB BLO OD NON ADD-ON Final Result [facility] [address] [place] [address] [facility] [address] [place] [address] * (ABNORMAL) T4 (Thyroxine), Free (02/07/2024 8:40 AM CDT) T4 (Thyroxine), Free, S 3.1(H) 0.9 - 1.7 ng/dL 02/08/2024 12:14 PM CDT DTL Blood (Blood, Venous) 02/07/2024 8:40 AM CDT 02/08/2024 9:06 AM CDT Narrative Resulting Agency Comment Mailed In Specimen Result [facility] Zara Garvey APRN, C.N.P., D.N.P. LAB BLO OD ADD-ON Final Result Performing Organization Address City/[facility]/ZIP Co de Phone Number [facility] [address] 200 [place] [address] * (ABNORMAL) S-TSH (Thyroid-Stimulating Hormone - Sensitive) (02/07/2024 8:40 AM CDT) TSH, Sensitive 0.01(L) 0.3 - 4.2 mIU/L 02/08/2024 12:14 PM CDT [facility] Blood (Blood, Venous) 02/07/2024 8:40 AM CDT 02/08/2024 9:06 AM CDT Narrative Resulting Agency Comment Mailed In Specimen Zara Garvey APRN, Jass.N.P., D.N.P. LAB BLO OD ADD-ON Final Result Performing Organization Address City/[facility] Co de Phone Number [facility] [address] [place] [address] * Thyroglobulin, Tumor Marker Reflex to LC-MS/MS or Immunoassay (02/07/2024 8:40 AM CDT) Thyroglobulin Antibody, S <1.8 <1.8 IU/mL 02/08/2024 2:39 PM CDT [facility] Comment: Thyroglobulin Antibody < 1.8 IU/mL. Thyroglobulin performed by Immunoassay to follow. Blood (Blood, Venous) 02/07/2024 8:40 AM CDT 02/08/2024 1:24 PM CDT Narrative Resulting Agency Comment Mailed In Specimen Zara Garvey APRN, C.N.P., D.N.P. LAB BLO OD NON ADD-ON Final Result Performing Organization Address City/[facility]/ZIP Co de Phone Number [facility] [address] [place] [address] [facility] [address] 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
--- OUTSIDE RECORDS SUMMARY | 2024-07-03 00:04 | XMS_ITS | Encounter Summary ---
Author Organization [facility] Address [address] [place] [address] Care Team Providers Care Certified Medication Technician Name Role Phone Elsewhere, Pcp Primary Care Provider Unavailabl e Reason for Referral * Outpatient (Routine) - Closed Specialty Diagnoses / Procedures Referred By Jessica patel Referred To Contact Vascular Medicine Diagnoses Aneurysm Abdominal Aortic Personal History Procedures Vascular Medicine - General eConsult Devi Stafford APRN, C.N.P., M.S.N. [address] [place] [phone] Phone: tel: fax: [facility] Referral ID Status Reason Start Date Expiration Date Visits Re quested Visits Authorized [id number] Closed 05/07/2024 05/07/2025 1 1 Encounter Details Date Type Department Care Team (Late st Contact Info) Description 05/07/2024 Orders Only Department of Cardiovascular Medicine in [place], [place] [address] [place] [phone] Devi Stafford APRN, C.N.P., M.S.N. [address] [place] [phone] Aneurysm Abdominal Aortic Personal History (Primary Dx) Social History Tobacco Use Types Packs/Day Years Used Date Smoking Tobacco: Former Cigarettes 0 01/12/1955 - 01/16/1985 Smokeless Tobacco: Never Alcohol Use Standard Drinks/Week Comments Yes 10 (1 standard drink = 0.6 oz pu re alcohol) occassional [facility] Utilities Answer Date Recorded In the past 12 months has e [email or web address], gas, oil, or water [employer] threatened to shut off services in your [...] week 08/07/2022 How often do you attend [facility] or mandaeism services? 1 to 4 [...] 01/25/2019 [facility] Occupational Stress Questionnaire Answer Date [...] living situation today? I have a [facility] place to live 12/01/2023 Education Answer [...] st Contact Info) Description 09/18/2024 11:00 AM HOME SUPERVISOR Appointment Department of Laboratory Medicine in [address] [phone] Ciara Hebert M.D. [address] [place] [phone] documented as of this encounter Visit Diagnoses Diagnosis Aneurysm Abdominal Aortic Personal History- Primary documented in this encounter Additional Health Concerns Assessment Noted Time PHQ-9 Depression Total Score: 5 03/06/20 18 6:00 PM CDT documented as of this encounter Care Teams Certified Medication Technician Relationship Specialty Start Date End Date Elsewhere, Pcp PCP - General Internal Medicine 09/13/22 documented as of this encounter
== END 2024-06-28 11:22 | disposition home or self-care (01) ==
LOC: NFLDREF 07-02 23:58
PROVIDERS: PCP Family Medicine; Referring Provider Family Medicine; Visit Provider Family Medicine
DX: Z51.81 Encounter for therapeutic drug level monitoring (principal); Z79.01 Long term (current) use of anticoagulants
CPT/HCPCS: 85610

== ENCOUNTER 2024-09-23 08:04 | Outpatient (CLI) | payer MEDICARE, SELFPAY | END 2024-09-23 08:05 | disposition home or self-care (01) | LOC: NFLDREF 09-27 02:50 | PROVIDERS: PCP Family Medicine; Referring Provider Family Medicine; Visit Provider Internal Medicine Nephrology | DX: I12.9 Hypertensive chronic kidney disease with stage 1 through stage 4 chronic kidney disease, or unspecified chronic kidney disease (principal); N18.4 Chronic kidney disease, stage 4 (severe); I48.91 Unspecified atrial fibrillation; R53.83 Other fatigue; E87.6 Hypokalemia; E78.5 Hyperlipidemia, unspecified; E03.9 Hypothyroidism, unspecified; D53.9 Nutritional anemia, unspecified; Z13.1 Encounter for screening for diabetes mellitus | CPT/HCPCS: 80061; 80069; 82043; 82306; 82570; 82652; 82728; 83540; 83550; 84450; 84460; 84550; 86140 ==

== ENCOUNTER 2025-06-27 08:15 | Outpatient (CLI) | payer MEDICARE, SELFPAY | END 2025-06-27 08:16 | disposition home or self-care (01) | LOC: NFLDREF 07-02 17:59 | PROVIDERS: PCP Family Medicine; Referring Provider Family Medicine; Visit Provider Family Medicine | DX: E78.5 Hyperlipidemia, unspecified (principal) | CPT/HCPCS: 80053; 80061 ==